=== PATIENT | female | born 1950 | race Caucasian/White ===

== ENCOUNTER 2023-06-30 22:34 | Inpatient (IN) ==
--- OUTSIDE RECORDS SUMMARY | 2023-06-30 22:45 | External Medical Summary | Summary of Care ---
Author Name Unknown Organization [facility] Address [address] [facility] [place] [address] Phone [phone] Care Team Providers Care Drilling Supervisor Name Role Phone Nichole Lizarraga MD Primary Care Provider + Reason for Visit * Reason Onset Date Comments FYI 06/27/2023 LGI Encounter Details Date Type Department Care Team (Late st Contact Info) Description 06/27/2023 Telephone General Internal Medicine [facility] [address] [place] [address] Nichole Lizarraga MD [address] [place] [address] FYI (LGI) Allergies Active Allergy Reactions Criticality Noted Date Comments Penicillins Edema airway,Rash High 03/10/2012 Last dose age 14 Tolerated Ancef Pollen 01/17/2021 Ragweed 11/05/2022 documented as of this encounter (statuses as of 06/27/2023) Medications Medication Sig Dispensed Refills Start Date End Date Status PROBIOTIC DAILY PO CAPS Take 1 Capsule by mouth in the morning. 0 Active Calcium Carbonate-Vitamin D 600-400 MG-UNIT Oral Tablet Chewable Take 1 Tablet by mouth in the morning. 0 10/11/2015 Active loratadine (CLARITIN) 10 MG Tablet Take 1 Tablet by mouth every evening. 30 Tab 5 10/16/2016 Active fluticasone (FLONASE) 50 MCG/ACT nasal sprayIndications:Image Editor 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 1 Inhaler 5 04/21/2018 Active Additional Information Patient taking differently:2 [place] Each NostrilPRN, Allergies, Informant: Patient, Reported on 05/29/2023 Econazole Nitrate 1 % External Cream (Spectazole)Indicatio ns:Tinea pedis of both feet,Onychomycosis Apply 2x daily from ankles down to feet/nails 2x daily for about 1 month until resolved, then 2x weekly to maintain clearance 170 g 2 11/21/2021 Active Azelastine HCl 137 MCG/SPRAY Nasal SolutionIndications:C hronic sinusitis, unspecified location ADMINISTER 1 SPRAY INTO NOSTRIL 2 TIMES A DAY. 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 30 Tablet 2 03/01/2023 Active Polyethylene Glycol 3350 17 GM/SCOOP Oral Powder (Miralax) Mix 17 grams of powder (1 capful to line) in 8 ounces of water or juice until dissolved and take by mouth daily at bedtime for constipation. 238 g 0 05/13/2023 Active Additional Information Patient taking differently:17 g OralHS PRN, Constipation, Informant: Patient, Reported on 05/29/2023 Sennosides 8.6 MG Oral Tablet (Senokot) Take 2 Tablets by mouth daily in the morning. 28 Tablet 1 05/13/2023 Active Additional Information Patient taking differently:2 Tablet OralDAILY PRN, Constipation, Informant: Patient, Reported on 05/29/2023 Acetaminophen 325 MG Oral Tablet (Tylenol) Take 2 Tablets by mouth every 4 hours as needed for mild pain or for fever greater than 38*C (100.5*F). 30 Tablet 0 05/30/2023 Active Oxymetazoline HCl 0.05 % Nasal SolutionIndications:D ysfunction of both eustachian tubes Administer 2 Sprays into each nostril 2 times a day as needed for Congestion (for congestion). Do not use for more than three days. 15 mL 0 06/14/2023 Active Magic Swizzle (Eorcsjgzf-Rwmxxdvr-C aalox) oral solutionIndications:P haryngoesophageal dysphagia,History of abdominal surgery Swish and swallow 15 mL in the morning and 15 mL at noon and 15 mL before bedtime. 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 01/06/2018 Neutropenia documented as of this encounter (statuses as of 06/27/2023) Resolved Problems Problem Noted Date Diagnosed Date Resolved Date Septic shock 05/26/2023 05/30/2023 Chronic kidney disease, stage 3b 04/30/2022 05/01/2023 Overview: Per CKD protocol Chronic kidney disease, stage 3a 05/29/2021 05/02/2022 Overview: Per CKD protocol Fever 09/13/2015 10/21/2017 Kidney stone on left side Inguinal hernia 10/21/2017 Overview: Surgical repair documented as of this encounter (statuses as of 06/27/2023) Immunizations Name Administration Dates Next Due COVID-19 mRNA, LNP-s, No Pre serve, 2-Dose Series ([employer]) 01/05/2021,05/07/2020,04/16/2020 COVID-19, LNP-s, No Preserve , Jasbir-sucrose, Ages 12+ (Pfizer) 09/06/2021 Covid-19, Mrna, Lnp-s, Pf, B ivalent, 30 Mcg, IM, 12 yrs and above (Pfizer) 01/31/2022 PPD 02/19/2017 Pneumococcal Conjugate Vacc, 13 Valent (Prevnar) 10/18/2017 Pneumococcal Polysaccharide PPV23 (Pneumovax) 10/21/2018 Season Influenza, Quad, PF, Adjuvanted, 65+ Yrs, IM (FLUAD) 10/27/2019 Seasonal Influenza, PF, 6 M & above, IM , (FluLaval or Fluzone) 11/28/2017 Seasonal Influenza, Quadriva lent Hd (Fluzone Hd) 11/06/2022,11/01/2021,10/27/2020 Seasonal Influenza, Quadriva lent, No Preserve, IM 10/29/2016,01/20/2016,11/19/2014 Seasonal Influenza, Split, I IV3, With Preserve, Inj 11/23/2013,12/15/2012,01/29/2012 Seasonal Influenza, Trivalen t, Adjuvanted, 65+ yrs 10/21/2018 TDAP (age 10 and older)(Boostrix) 09/02/2012 documented as of this encounter Social History Tobacco Use Types Packs/Day Years Used Date Smoking Tobacco: Never Passive Smoke Exposure: Never Smokeless Tobacco: Never Alcohol Use Standard Drinks/Week Comments Not Currently 2 (1 standard drink = 0.6 oz pur e alcohol) PHQ-2 Answer Date Recorded PHQ Adult Total Score 0 11/06/2022 Hunger Vital Sign Answer Date Recorded Worried About Running Out of Food in the Last Ye ar Never true 10/21/2018 Ran Out of Food in the Last Year Never true 10/21/2018 Sex and Gender Information Value Date Recorded Sex Assigned at Female 10/21/2018 10:18 AM EDT Gender Identity Female 10/21/2018 10:18 AM EDT Sexual Orientation Straight 10/21/2018 10 :18 AM EDT Job Start Date Occupation Industry Not on file Not on file Not on file documented as of this encounter Functional Status Functional Status Response Date of Assess ment Are you deaf or do you have serious difficulty h earing? No 05/26/2023 Are you blind or do you have serious difficulty seeing, even when wearing glasses? No 05/26/2023 Do you have serious difficul ty walking or climbing stairs? (5 years old or older) No 05/26/2023 Do you have difficulty dress ing or bathing? (5 years old or older) No 05/26/2023 Because of a physical, menta l, or emotional condition, do you have difficulty doing errands alone such as visiting a doctor s office or shopping? (15 years old or older) No 05/26/19 Cognitive Status Response Date of Assessm ent Because of a physical, menta l, or emotional condition, do you have serious difficulty concentrating, remembering, or making decisions? (5 years old or older) No 05/26/2023 documented as of this encounter Miscellaneous Notes * Telephone Encounter - Levy Ching LPN - 06/27/2023 1:23 PM EDT Through advanced analysis/trending of this patients Complete Blood Counts (CBC), they have been identified to have a positive LGI flag and at a higher risk for hidden bleeding in the intestine dueto several conditions such as ulcers, colon polyps, harmless conditions, or even colon cancer. This advanced analysis estimates the patient's risk of these kinds of conditions. It only indicatesthat the patient's chances to have one of these conditions are higher compared to most people. It does not indicate that the patient has any of these conditions but is highly recommended the patient have a colonoscopy for further evaluation. Patients with a positive LGI flag have a 40% chance (six times more likely) of having a serious GI pathology finding versus unflagged patients. I have contacted the patient regarding scheduling a colonoscopy. Colonoscopy outreach: Outreach not indicated per chart review Per pt- she was also identified 05/19/20 and said hematology did not support a colon due to risk- pt also had recent blood transfusion Thank you. Levy Ching LPN documented in this encounter Plan of Treatment Upcoming Encounters Date Type Department Care Team (Late st Contact Info) Description 07/04/2023 10:30 AM EDT Imaging Radiology [facility] 2nd [facility] [address] [facility] [place] [address] 07/25/2023 3:15 PM EDT Office Visit Hematology/Oncology [facility] [address] [facility] [place] [phone] Aguilar Lizarraga MD 200 [facility] [place] [address] 11/12/2023 9:20 AM EDT Office Visit General Internal Medicine [facility] [place] [address] [facility] [place] [address] Nichole Lizarraga MD 200 [facility] [place] [address] 03/06/2024 11:40 AM EST Office Visit Nephrology, [facility] [address] [place] [address] Demetrius Sherman MD [address] [facility] [place] [address] Health Maintenance Due Date Last Done Comments Zoster Vaccines (1 of 2) 01/23/1971 Colonoscopy 01/23/1997 Fecal Occult Blood Test 01/23/1997 Sigmoidoscopy 01/23/1997 DTaP,Tdap,and Td Vaccines (2 - Td or Tdap) 09/02/2022 09/02/2012 Albumin/Creatinine Ratio 03/13/2023 03/13/2022, 10/20 Cologuard 06/09/2023 06/08/2020, 10/25/2016 Colorectal Cancer Screening 06/09/2023 Mammogram 10/12/2023 10/11/2022, 0 04/2021, 01/18/2020, Additional history exists Depression Screening 11/07/2023 11/06/2022 GFR 12/27/2023 06/26/2023, 050 03/2023, 05/30/2023, Additional history exists CKD HGB USE SMARTSET 42465 06/25/202406/25, 06/26/2023, 06/20/2023, Additional history exists CKD PHOS USE SMARTSET 32681 06/25/2024 05/0 09/2023, 05/30/2023, 05/29/2023, Additional history exists DXA Scan 10/02/2024 10/02/2022, 12/20, 11/04/2017 Lipid Panel 10/26/2024 10/27/2019, 09/20, 01/20/2016, Additional history exists Pneumococcal Vaccine: 65+ Years Completed 10/21/2018, 10/18/2017 Influenza Vaccine (FLU shot) Completed , 11/01/2021, 10/27/2020, Additional history exists COVID-19 Vaccine Completed 12/07/2022, , 09/06/2021, Additional history exists GARDASIL-HPV IMMUNIZATION SERIES Aged Out No longer eligible based on patient's age to complete this topic Hepatitis B Aged Out No longer eligi ble based on patient's age to complete this topic MENINGOCOCCAL (MENACTRA/MENVEO) Aged Out No longer eligible based on patient's age to complete this topic documented as of this encounter Medical Devices Not on filedocumented as of this encounter Advance Directives Latest Code Status on File Code Status Date Activated Date Inactivated Comments Full Code 05/26/2023 2:59 AM 05/30/2023 6:30 PM This o rder reflects the patients wishes and were consensually agreed upon. Question Answer Comments Discussion of Advance Directives occurred with: Patient Code Status History Code Status Date Activated Date Inactivated Comments Full Code 05/08/2023 4:08 PM 05/13/2023 4:04 PM This order reflects the patients wishes and were consensually agreed upon. Question Answer Comments Discussion of Advance Directives occurred with: Not Discussed due to patient's condition Full Code 02/04/2023 9:25 AM 02/04/2023 2:55 PM Thi s order reflects the patients wishes and were consensually agreed upon. Question Answer Comments Discussion of Advance Directives occurred with: Patient Full Code 02/04/2023 7:26 AM 02/04/2023 9:25 AM Thi s order reflects the patients wishes and were consensually agreed upon. Question Answer Comments Discussion of Advance Directives occurred with: Patient Full Code 06/05/2021 8:47 AM 06/05/2021 1:44 PM This order reflects the patients wishes and were consensually agreed upon. Care Teams Drilling Supervisor Relationship Specialty Start Date End Date Nichole Lizarraga MD [facility] [place] [address] PCP - General Internal Medicine 03/10/12 documented as of this encounter
--- OUTSIDE RECORDS SUMMARY | 2023-06-30 22:45 | External Medical Summary | Summary of Care ---
Author Name Unknown Organization [facility] Address [address] [facility] [place] [address] Phone [phone] Care Team Providers Care Bleacher Sulfite Pulp Name Role Phone Nichole Lizarraga MD Primary Care Provider + Reason for Visit * Reason Onset Date Comments Precert Denied 06/26/2023 Encounter Details Date Type Department Care Team (Late st Contact Info) Description 06/26/2023 Telephone Hematology/Oncology [facility] [address] [facility] [place] [phone] Aguilar Lizarraga MD 200 [place] [address] Precert Denied Allergies Active Allergy Reactions Criticality Noted Date Comments Penicillins Edema airway,Rash High 03/10/2012 Last dose age 14 Tolerated Ancef Pollen 01/17/2021 Ragweed 11/05/2022 documented as of this encounter (statuses as of 06/28/2023) Medications Medication Sig Dispensed Refills Start Date [...] 10/16/2016 Active fluticasone (FLONASE) 50 MCG/ACT nasal sprayIndications:Artificial Fly Tier 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 1 Inhaler 5 04/21/2018 Active Additional Information Patient taking differently:2 [place] Each NostrilPRN, Allergies, Informant: Patient, Reported on [...] 15 mL 0 06/14/2023 Active Magic Swizzle (Magkarqmh-Liqxvtjx-L aalox) oral solutionIndications:P haryngoesophageal dysphagia,History of abdominal [...] as of this encounter (statuses as of 06/28/2023) Active Problems Problem Noted Date Diagnosed Date [...] as of this encounter (statuses as of 06/28/2023) Resolved Problems Problem Noted Date Diagnosed Date Resolved Date Septic shock 05/26/2023 05/30/2023 Chronic kidney disease, stage 3b 04/30/2022 05/01/2023 Overview: Per CKD protocol Chronic kidney disease, stage 3a 05/29/2021 05/02/2022 Overview: Per CKD protocol Fever 09/13/2015 10/21/2017 Kidney stone on left side Inguinal hernia 10/21/2017 Overview: Surgical repair documented as of this encounter (statuses as of 06/28/2023) Immunizations Name Administration Dates Next Due COVID-19 mRNA, LNP-s, No Pre serve, 2-Dose Series ([employer]) 01/05/2021,05/07/2020,04/16/2020 COVID-19, LNP-s, No Preserve , Jasbir-sucrose, [...] encounter Miscellaneous Notes * Telephone Encounter - [place]ia Valdez OSA - 06/28/2023 4:24 PM EDT New or re-auth: re-authorization Approved/Denied: Denied Drug Name and Formulation: Filgrastim-sndz 480 MCG/0.8ML Injection Solution Prefilled Syringe (Zarxio) How Prescribed(directions/sig): Inject 480 mcg under the skin in the morning. Day Supply: 28 Did you receive insurance information from outside the chart? No, received insurance information within the chart Valid auth start date: N/A Valid auth end date: N/A Rx Insurance Info: [place] Reference #: [id number] Rx Benefits Verified through/on date: 06/28/2023 Referral (TE) received from: Prescribing Clinic Thank you, Albania Valdez Medication Cigar Sorter 06/28/2023, 4:24 PM * Telephone Encounter - Marta Mercado OSA - 06/27/2023 7:48 AM EDT [facility] Authorization Submission Submission Information: Medication: ZARIXO 480 MG Portal used: [facility] Insurance: [facility] Authorization #/Hung: [id number] Marta Mercado Medication Cigar Sorter 06/27/2023,7:50 AM * Telephone Encounter - Josh Escalera RN - 06/26/2023 2:59 PM EDT ICD-10: D70.9, C91.Z0 Start date: CORNELIO Drugs: Filgrastim-sndz 480 MCG/0.8ML Injection Solution Prefilled Syringe (Zarxio) Multidisciplinary Clinic note: no Physician: Dr. Aguilar Lizarraga Comments: Dr. Lizarraga increasing frequency from 4 days/week to 7days/week (daily) Concurrent Therapy: yes documented in this encounter Plan of Treatment Upcoming Encounters Date Type Department Care Team (Late st Contact Info) Description 07/04/2023 10:30 AM EDT Imaging Radiology [facility] [address] [place] [address] 07/25/2023 3:15 PM EDT Office Visit Hematology/Oncology [facility] [place] [address] [place] [address] [phone] Aguilar Lizarraga MD [address] [place] [address] [address] 11/12/2023 9:20 AM EDT [facility] [place] [address] [place] [address] [address] Nichole Lizarraga MD [address] [place] [address] [address] 03/06/2024 11:40 AM EST Office Visit Nephrology, [facility] [address] [place] [address] [address] Demetrius Sherman MD 200 [facility] [place] [address] Health Maintenance Due Date Last Done Comments Zoster Vaccines (1 of 2) 01/23/1971 Colonoscopy 01/23/1997 Fecal Occult Blood Test 01/23/1997 Sigmoidoscopy 01/23/1997 DTaP,Tdap,and Td Vaccines (2 - Td or Tdap) 09/02/2022 09/02/2012 Albumin/Creatinine Ratio 03/13/2023 03/13/2022, 10/20 Cologuard 06/09/2023 06/08/2020, 10/25/2016 Colorectal Cancer Screening 06/09/2023 Mammogram 10/12/2023 10/11/2022, 05/0 04/2021, 01/18/2020, Additional history exists Depression Screening 11/07/2023 11/06/2022 GFR 12/27/2023 06/26/2023, 050 03/2023, 05/30/2023, Additional history exists CKD HGB USE SMARTSET 66067 06/25/202406/25, 06/26/2023, 06/20/2023, Additional history exists CKD PHOS USE SMARTSET 25931 06/25/2024 05/0 09/2023, 05/30/2023, 05/29/2023, Additional history [...] and were consensually agreed upon. Care Teams Bleacher Sulfite Pulp Relationship Specialty Start Date End Date Nichole Lizarraga MD [address] [facility] [place] [address] PCP - General Internal Medicine 03/10/12 documented as of this encounter
--- OUTSIDE RECORDS SUMMARY | 2023-06-30 22:45 | External Medical Summary | Summary of Care ---
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 1 Inhaler 5 04/21/2018 Active Additional Information Patient taking differently:2 [place] Each NostrilPRN, Allergies, Informant: Patient, Reported on [...] 15 mL 0 06/14/2023 Active Magic Swizzle (Psxrzzpcl-Mlafsxjh-G aalox) oral solutionIndications:P haryngoesophageal dysphagia,History of abdominal [...] mRNA, LNP-s, No Pre serve, 2-Dose Series ([employer]) 01/05/2021,05/07/2020,04/16/2020 COVID-19, LNP-s, No Preserve , Jasbir-sucrose, Ages 12+ ([employer]) 09/06/2021 Covid-19, Mrna, Lnp-s, Pf, B ivalent, [...] No 05/26/2023 documented as of this encounter Plan of Treatment Upcoming Encounters Date Type Department Care Team (Late st Contact Info) Description 07/04/2023 10:30 AM EDT Imaging Radiology [facility] 2nd [facility], [address] [place] [address] 07/25/2023 3:15 PM EDT Office Visit Hematology/Oncology [facility] [place] [address] [phone] Aguilar Lizarraga MD [address] [place] [address] 11/12/2023 9:20 AM EDT Office Visit General Internal Medicine [facility] [address] [place] [address] Nichole Lizarraga MD [address] [facility] [place] [address] 03/06/2024 11:40 AM EST Office Visit Nephrology, [facility] [address] [place] [address] Demetrius Sherman MD [address] [place] [address] Health Maintenance Due Date Last Done Comments [...] Additional history exists CKD HGB USE SMARTSET 81695 06/25/202406/25, 06/26/2023, 06/20/2023, Additional history exists CKD PHOS USE SMARTSET 42823 06/25/2024 05/0 09/2023, 05/30/2023, 05/29/2023, Additional history [...] and were consensually agreed upon. Care Teams Tire Service Supervisor Relationship Specialty Start Date End Date Nichole Lizarraga MD [address] [place] [address] PCP - General Internal Medicine 03/10/12 documented as of this encounter
--- OUTSIDE RECORDS SUMMARY | 2023-06-30 22:45 | External Medical Summary | Summary of Care ---
Author Name Unknown Organization [facility] Address [address] [facility] [place] [address] Phone [phone] Care Team Providers Care Sheet Metal Duct Installer Helper Name Role Phone Nichole Lizarraga MD Primary Care Provider + Encounter Details Date Type Department Care Team (Late st Contact Info) Description 06/28/2023 Orders Only PATIENT PORTAL DO NOT DELETE THIS DEPT USED BY [place] [address] Allergies Active Allergy Reactions Criticality Noted Date [...] 10/16/2016 Active fluticasone (FLONASE) 50 MCG/ACT nasal sprayIndications:Hr Business Partner 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 1 Inhaler 5 04/21/2018 Active Additional Information Patient taking differently:2 [place] Each NostrilPRN, Allergies, Informant: Patient, Reported on [...] 15 mL 0 06/14/2023 Active Magic Swizzle (Rpjvpzssd-Xlhlgukj-P aalox) oral solutionIndications:P haryngoesophageal dysphagia,History of abdominal [...] mRNA, LNP-s, No Pre serve, 2-Dose Series ([employer] 01/05/2021,05/07/2020,04/16/2020 COVID-19, LNP-s, No Preserve , Jasbir-sucrose, [...] Description 07/04/2023 10:30 AM EDT Imaging Radiology [address] [place] [address] 07/25/2023 3:15 PM EDT Office Visit Hematology/Oncology [facility] [address] [place] [phone] Aguilar Lizarraga MD [address] [place] [address] 11/12/2023 9:20 AM EDT Office Visit General Internal Medicine [facility] [address] [place] [address] Nichole Lizarraga MD [address] [facility] [place] [address] 03/06/2024 11:40 AM EST Office Visit Nephrology, [facility] [address] [place] [address] Demetrius Sherman MD [address] [place] [address] [address] Health Maintenance Due Date Last Done Comments Zoster Vaccines (1 of 2) 01/23/1971 Colonoscopy 01/23/1997 Fecal Occult Blood Test 01/23/1997 Sigmoidoscopy 01/23/1997 DTaP,Tdap,and Td Vaccines (2 - Td or Tdap) 09/02/2022 09/02/2012 Albumin/Creatinine Ratio 03/13/2023 03/13/2022, 10/20 Cologuard 06/09/2023 06/08/2020, 10/25/2016 Colorectal Cancer Screening 06/09/2023 Mammogram 10/12/2023 10/11/2022, 050 04/2021, 01/18/2020, Additional history exists Depression Screening 11/07/2023 11/06/2022 GFR 12/27/2023 06/26/2023, 050 03/2023, 05/30/2023, Additional history exists CKD HGB USE SMARTSET 66841 06/25/202406/25, 06/26/2023, 06/20/2023, Additional history exists CKD PHOS USE SMARTSET 59070 06/25/20240 09/2023, 05/30/2023, 05/29/2023, Additional history exists DXA [...] and were consensually agreed upon. Care Teams Sheet Metal Duct Installer Helper Relationship Specialty Start Date End Date Nichole Lizarrgaa MD 200 [facility] [place] [address] PCP - General Internal Medicine 03/10/12 documented as of this encounter
--- OUTSIDE RECORDS SUMMARY | 2023-06-30 22:45 | External Medical Summary | Summary of Care ---
Author Name Unknown Organization [facility] Address [address] [facility] [place] [address] Phone [phone] Care Team Providers Care Echo Technologist Name Role Phone Nichole Lizarraga MD Primary Care Provider + Reason for Visit * Reason Onset Date Comments Test Results 06/28/2023 Encounter Details Date Type Department Care Team (Late st Contact Info) Description 06/28/2023 Telephone Nephrology, [place] [address] [facility] [place] [address] Demetrius Sherman MD [address] [facility] [place] [address] Test Results Allergies Active Allergy Reactions Criticality Noted Date [...] 10/16/2016 Active fluticasone (FLONASE) 50 MCG/ACT nasal sprayIndications: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 1 Inhaler 5 04/21/2018 Active Additional Information Patient taking differently:2 [place] Each NostrilPRN, Allergies, Informant: Patient, Reported on [...] 15 mL 0 06/14/2023 Active Magic Swizzle (Ytsuzzapj-Uycdoyub-U aalox) oral solutionIndications:P haryngoesophageal dysphagia,History of abdominal [...] the morning. 22.4 mL 3 06/26/2023 Active Midodrine HCl 5 MG Oral Tablet (Proamatine)Indicatio ns:Chronic kidney disease, stage 3a (HCC) Take 1 Tablet by mouth in the morning and 1 Tablet at noon and 1 Tablet in the evening. 90 Tablet 5 06/28/2023 Active documented as of this encounter (statuses [...] mRNA, LNP-s, No Pre serve, 2-Dose Series ([employer]) 01/05/2021,05/07/2020,04/16/2020 COVID-19, LNP-s, No Preserve , Jasbir-sucrose, [...] encounter Miscellaneous Notes * Telephone Encounter - Awilda Lombardo LPN - 06/28/2023 4:29 PM EDT Orders placed for labs Rx pended for Rx * Telephone Encounter - Awilda Lombardo LPN - 06/28/2023 4:17 PM EDT Received message pt returning call from earlier Returned call only received answering machine LMM to return call Saturday to discuss lab results * Telephone Encounter - Awilda Lombardo LPN - 06/28/2023 10:16 AM EDT ----- Message from Demetrius Sherman MD sent at 06/27/2023 10:57 AM EDT ----- With all the things that has happened in the last few months GFR is less. Part of it also related with her much lower BP lately. Will try midodrine 5 mg tid to see if it raises BP a bit. Have renal panel again with her next labs with hematology * Telephone Encounter - Awilda Lombardo LPN - 06/28/2023 10:15 AM EDT LMM to return call regarding * Telephone Encounter - Awilda Lombardo LPN - 06/28/2023 10:15 AM EDT ----- Message from Demetrius Sherman MD sent at 06/28/2023 9:11 AM EDT ----- Significant proteinuria but expected given current situation documented in this encounter Plan of Treatment Upcoming Encounters Date Type Department Care Team (Late st Contact Info) Description 07/04/2023 10:30 AM EDT Imaging Radiology [facility] [address] [place] [address] 07/25/2023 3:15 PM EDT Office Visit Hematology/Oncology [facility] [address] [place], [place] [phone] Aguilar Lizarraga MD [address] [place] [address] 11/12/2023 9:20 AM EDT Office Visit General Internal Medicine [facility] [address] [place] [address] Nichole Lizarraga MD [address] [place] [address] 03/06/2024 11:40 AM EST Office Visit Nephrology, [place] [address] [place] [address] Demetrius Sherman MD [address] [place] [address] Scheduled Orders Name Type Priority Associated Diagnoses Orde r Schedule RENAL FUNCTION PANEL Lab Routine Chronic kidney disease, stage 3a (HCC) Expected: 06/28/2023 (Approximate), Expires: 06/27/2024 Health Maintenance Due Date Last Done Comments [...] Additional history exists CKD HGB USE SMARTSET 69486 06/25/202406/25, 06/26/2023, 06/20/2023, Additional history exists CKD PHOS USE SMARTSET 67604 06/25/2024 05/0 09/2023, 05/30/2023, 05/29/2023, Additional history [...] Not on filedocumented as of this encounter Visit Diagnoses Diagnosis Chronic kidney disease, stage 3a (HCC)- Primary documented in this encounter Advance Directives Latest Code Status [...] and were consensually agreed upon. Care Teams Echo Technologist Relationship Specialty Start Date End Date Nichole Lizarraga MD [address] [facility] [place] [address] PCP - General Internal Medicine 03/10/12 documented as of this encounter
--- OUTSIDE RECORDS SUMMARY | 2023-06-30 22:45 | External Medical Summary | Summary of Care ---
Author Name Unknown Organization [facility] Address [address] [place] [facility] [place] [place] [address] Phone [phone] Care Team Providers Care Landscape Crew Member Name Role Phone Nichole Lizarraga MD Primary Care Provider + Reason for Visit * Reason Comments Outpatient Testing [id number] Encounter Details Date Type Department Care Team (Late st Contact Info) Description 06/27/2023 3:30 PM EDT Laboratory Laboratory [facility] [place] [address] [place] [id number] [place], [facility] [address] [place] [address] Stage 3b chronic kidney disease (HCC) Allergies Active Allergy Reactions Criticality Noted Date [...] 10/16/2016 Active fluticasone (FLONASE) 50 MCG/ACT nasal 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 1 Inhaler 5 04/21/2018 Active Additional Information Patient taking differently:2 [place] Each NostrilPRN, Allergies, Informant: Patient, Reported on [...] 15 mL 0 06/14/2023 Active Magic Swizzle (Xvfynkjpv-Amxkitmq-L aalox) oral solutionIndications:P haryngoesophageal dysphagia,History of abdominal [...] mRNA, LNP-s, No Pre serve, 2-Dose Series ([employer]) 01/05/2021,05/07/2020,04/16/2020 COVID-19, LNP-s, No Preserve , Jasbir-sucrose, [...] Description 07/04/2023 10:30 AM EDT Imaging Radiology [facility] 2nd [facility] [address] [facility] [place] [address] 07/25/2023 3:15 PM EDT Office Visit Hematology/Oncology [facility] [address] [phone] Aguilar Lizarraga MD [address] [place] [address] [address] 11/12/2023 9:20 AM EDT Office Visit General Internal Medicine [facility] [address] [place] [address] [address] Nichole Lizarraga MD [address] [place] [address] [address] 03/06/2024 11:40 AM EST Office Visit Nephrology, [facility] [address] [place] [address] [address] Demetrius Sherman MD [address] [place] [address] [address] Pending Results Name Type Priority Associated Diagnoses Date /Time PROTEIN/ CREATININE RATIO, URINE Lab Routine Stage 3b chronic kidney disease (HCC) 06/27/2023 3:26 PM EDT URINALYSIS WITH MICROSCOPIC EXAM Lab Routine Stage 3b chronic kidney disease (HCC) 06/27/2023 3:26 PM EDT Health Maintenance Due Date Last Done Comments Zoster Vaccines (1 of 2) 01/23/1971 Colonoscopy 01/23/1997 Fecal Occult Blood Test 01/23/1997 Sigmoidoscopy 01/23/1997 DTaP,Tdap,and Td Vaccines (2 - Td or Tdap) 09/02/2022 09/02/2012 Albumin/Creatinine Ratio 03/13/2023 03/13/2022, 10/20 Cologuard 06/09/2023 06/08/2020, 10/25/2016 Colorectal Cancer Screening 06/09/2023 Mammogram 10/12/2023 10/11/2022, 05/0 04/2021, 01/18/2020, Additional history exists Depression Screening 11/07/2023 11/06/2022 GFR 12/27/2023 06/26/2023, 05/0 03/2023, 05/30/2023, Additional history exists CKD HGB USE SMARTSET 26886 06/25/202406/25, 06/26/2023, 06/20/2023, Additional history exists CKD PHOS USE SMARTSET 54676 06/25/2024 050 09/2023, 05/30/2023, 05/29/2023, Additional history exists DXA [...] as of this encounter Visit Diagnoses Diagnosis Stage 3b chronic kidney disease (HCC) documented in this encounter Advance Directives Latest [...] and were consensually agreed upon. Care Teams Landscape Crew Member Relationship Specialty Start Date End Date Nichole Lizarraga MD 200 [place] [address] PCP - General Internal Medicine 03/10/12 documented as of this encounter
--- OUTSIDE RECORDS SUMMARY | 2023-06-30 22:45 | External Medical Summary | Summary of Care ---
Author Name Unknown Organization [facility] Address [address] [facility] [place] [address] Phone [phone] Care Team Providers Care Solution Specialist Name Role Phone Nichole Lizarraga MD Primary Care Provider + Reason for Visit * Reason Onset Date Comments Test Results 06/27/2023 Encounter Details Date Type Department Care Team (Late st Contact Info) Description 06/27/2023 Telephone Nephrology, [place] [address] [facility] [place] [address] Demetrius Sherman MD 200 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 1 Inhaler 5 04/21/2018 Active Additional Information Patient taking differently:2 [place] Each NostrilPRN, Allergies, Informant: Patient, Reported on [...] 15 mL 0 06/14/2023 Active Magic Swizzle (Sqpruoggc-Yswoddsj-E aalox) oral solutionIndications:P haryngoesophageal dysphagia,History of abdominal [...] mRNA, LNP-s, No Pre serve, 2-Dose Series ([employer]) 01/05/2021,05/07/2020,04/16/2020 COVID-19, LNP-s, No Preserve , Jasbir-sucrose, [...] encounter Miscellaneous Notes * Telephone Encounter - Deysi Calderon RN - 06/27/2023 4:23 PM EDT LMAM with call back number regarding lab results. * Telephone Encounter - Deysi Calderon RN - 06/27/2023 4:23 PM EDT ----- Message from Demetrius Sherman MD [...] again with her next labs with hematology documented in this encounter Plan of Treatment Upcoming Encounters Date Type Department Care Team (Late st Contact Info) Description 07/04/2023 10:30 AM EDT Imaging Radiology [facility] [address] [place] [address] 07/25/2023 3:15 PM EDT Office Visit Hematology/Oncology [facility] [address] [place] [phone] Aguilar Lizarraga MD [address] [place] [address] 11/12/2023 9:20 AM EDT Office Visit General Internal Medicine [facility] [place] [address] [facility] [address] [place] [address] Nichole Lizarraga MD [address] [facility] [address] 03/06/2024 11:40 AM EST Office Visit Nephrology, [facility] [address] [facility] [place] [address] Demetrius Sherman MD [address] [facility] [place], [place] [address] Health Maintenance Due Date Last Done Comments [...] Additional history exists CKD HGB USE SMARTSET 33325 06/25/202406/25, 06/26/2023, 06/20/2023, Additional history exists CKD PHOS USE SMARTSET 91674 06/25/2024 050 09/2023, 05/30/2023, 05/29/2023, Additional history [...] and were consensually agreed upon. Care Teams Solution Specialist Relationship Specialty Start Date End Date Nichole Lizarraga MD [address] [place] [address] PCP - General Internal Medicine 03/10/12 documented as of this encounter
--- OUTSIDE RECORDS SUMMARY | 2023-06-30 22:45 | External Medical Summary | Summary of Care ---
Author Name Unknown Organization [facility] Address [address] [facility] [place] [address] Phone [phone] Care Team Providers Care Shot Polisher And Inspector Name Role Phone Nichole Lizarraga MD Primary Care Provider + Reason for Visit * Reason Onset Date Comments Test Results 06/28/2023 Encounter Details Date Type Department Care Team (Late st Contact Info) Description 06/28/2023 Telephone Nephrology, [place] 200 [facility] [place] [address] Demetrius Sherman MD 200 [facility] [place] [address] Test Results Allergies Active Allergy Reactions Criticality [...] 10/16/2016 Active fluticasone (FLONASE) 50 MCG/ACT nasal sprayIndications: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 1 Inhaler 5 04/21/2018 Active Additional Information Patient taking differently:2 [place] Each NostrilPRN, Allergies, Informant: Patient, Reported on [...] 15 mL 0 06/14/2023 Active Magic Swizzle (Cmotzciit-Cvkkafim-V aalox) oral solutionIndications:P haryngoesophageal dysphagia,History of abdominal [...] mRNA, LNP-s, No Pre serve, 2-Dose Series ([employer]) 01/05/2021,05/07/2020,04/16/2020 COVID-19, LNP-s, No Preserve , Jasbir-sucrose, [...] Description 07/04/2023 10:30 AM EDT Imaging Radiology [facility] [address] [place] [address] 07/25/2023 3:15 PM EDT Office Visit Hematology/Oncology [facility] [address] [place], [place] [phone] Aguilar Lizarraga MD [address] [place] [address] 11/12/2023 9:20 AM EDT Office Visit General Internal Medicine [facility] [address] [place] [address] Nichole Lizarraga MD [address] [place] [address] 03/06/2024 11:40 AM EST Office Visit Nephrology, [place] [address] [place] [address] Demetrius Sherman MD [address] [place] [address] Scheduled Orders Name Type Priority Associated Diagnoses [...] Additional history exists CKD HGB USE SMARTSET 70250 06/25/202406/25, 06/26/2023, 06/20/2023, Additional history exists CKD PHOS USE SMARTSET 98235 06/25/2024 05/0 09/2023, 05/30/2023, 05/29/2023, Additional history [...] and were consensually agreed upon. Care Teams Shot Polisher And Inspector Relationship Specialty Start Date End Date Nichole Lizarraga MD 200 [facility] [place] [address] PCP - General Internal Medicine 03/10/12 documented as of this encounter
--- OUTSIDE RECORDS SUMMARY | 2023-06-30 22:45 | External Medical Summary | Summary of Care ---
Author Name Unknown Organization [facility] Address [address] [facility] [place] [address] Phone [phone] Care Team Providers Care Icd 9 Coder Name Role Phone Nichole Lizarraga MD Primary Care Provider + Reason for Visit * Reason Onset Date Comments Test Results 06/27/2023 Encounter Details Date Type Department Care Team (Late st Contact Info) Description 06/27/2023 Telephone Nephrology, [place] [address] [facility] [place] [address] Demetrius Sherman MD [address] [facility] [place] [address] Test Results Allergies Active Allergy Reactions Criticality [...] 10/16/2016 Active fluticasone (FLONASE) 50 MCG/ACT nasal 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 1 Inhaler 5 04/21/2018 Active Additional Information Patient taking differently:2 [place] Each NostrilPRN, Allergies, Informant: Patient, Reported on [...] 15 mL 0 06/14/2023 Active Magic Swizzle (Tlzvlsjzj-Ffmquhyi-K aalox) oral solutionIndications:P haryngoesophageal dysphagia,History of abdominal [...] mRNA, LNP-s, No Pre serve, 2-Dose Series (Max Endoscopy) 01/05/2021,05/07/2020,04/16/2020 COVID-19, LNP-s, No Preserve , Jasbir-sucrose, [...] encounter Miscellaneous Notes * Telephone Encounter - Ofe Heller OSA - 06/28/2023 3:56 PM EDT Messi dubois, Pt on the line, requesting a call back. Please give her a call back at [phone]. Thank you * Telephone Encounter - Deysi Calderon RN [...] Description 07/04/2023 10:30 AM EDT Imaging Radiology [facility] 2nd [facility] [place] [address] [facility] [place] [address] 07/25/2023 3:15 PM EDT Office Visit Hematology/Oncology [facility] [place] [address] [facility] [place] [phone] Aguilar Lizarraga MD 200 [facility] [place] [address] 11/12/2023 9:20 AM EDT Office Visit General Internal Medicine [facility] [place] [facility] [place] [address] Nichole Lizarraga MD 200 [facility] [place] [address] 03/06/2024 11:40 AM EST Office Visit Nephrology, [facility] [address] [place] [address] Demetrius Sherman MD 200 [facility] [place], [place] [address] Health Maintenance Due Date Last Done Comments Zoster Vaccines (1 of 2) 01/23/1971 Colonoscopy 01/23/1997 Fecal Occult Blood Test 01/23/1997 Sigmoidoscopy 01/23/1997 DTaP,Tdap,and Td Vaccines (2 - Td or Tdap) 09/02/2022 09/02/2012 Albumin/Creatinine Ratio 03/13/2023 03/13/2022, 10/20 Cologuard 06/09/2023 06/08/2020, 10/25/2016 Colorectal Cancer Screening 06/09/2023 Mammogram 10/12/2023 10/11/2022, 05/0 04/2021, 01/18/2020, Additional history exists Depression Screening 11/07/2023 11/06/2022 GFR 12/27/2023 06/26/2023, 0503/2023, 05/30/2023, Additional history exists CKD HGB USE SMARTSET 23777 06/25/202406/25, 06/26/2023, 06/20/2023, Additional history exists CKD PHOS USE SMARTSET 33690 06/25/2024 05/0 09/2023, 05/30/2023, 05/29/2023, Additional history [...] and were consensually agreed upon. Care Teams Icd 9 Coder Relationship Specialty Start Date End Date Nichole Lizarraga MD 200 [facility] [place] [address] PCP - General Internal Medicine 03/10/12 documented as of this encounter
--- OUTSIDE RECORDS SUMMARY | 2023-06-30 22:45 | External Medical Summary | Summary of Care ---
Author Name Unknown Organization [facility] Address [address] [facility] [place] [address] Phone [phone] Care Team Providers Care Business System Consultant Name Role Phone Nichole Lizarraga MD Primary Care Provider + Reason for Visit * Reason Onset Date Comments Test Results 06/27/2023 Encounter Details Date Type Department Care Team (Late st Contact Info) Description 06/27/2023 Telephone Nephrology, [place] 200 [facility] [place] [address] Demetrius Sherman MD 200 [facility] [place] [address] Test Results Allergies Active Allergy Reactions Criticality [...] 10/16/2016 Active fluticasone (FLONASE) 50 MCG/ACT nasal 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 1 Inhaler 5 04/21/2018 Active Additional Information Patient taking differently:2 [place] Each NostrilPRN, Allergies, Informant: Patient, Reported on [...] 15 mL 0 06/14/2023 Active Magic Swizzle (Rovdxmggl-Cbfidfsy-D aalox) oral solutionIndications:P haryngoesophageal dysphagia,History of abdominal [...] mRNA, LNP-s, No Pre serve, 2-Dose Series ([employer]) 01/05/2021,05/07/2020,04/16/2020 COVID-19, LNP-s, No Preserve , Jasbir-sucrose, [...] Encounter - Awilda Lombardo LPN - 06/28/2023 4:21 PM EDT Will close encounter and work from encounter with both messages * Telephone Encounter - Ofe Heller OSA - 06/28/2023 3:56 PM EDT Good afternoon, Pt on the line, requesting a call back. Please give her a call back at [phone]. Thank you * Telephone Encounter - Deysi [...] Description 07/04/2023 10:30 AM EDT Imaging Radiology [facility] 2nd [facility] [address] [facility] [place] [address] 07/25/2023 3:15 PM EDT Office Visit Hematology/Oncology [facility] [address] [place] [phone] Aguilar Lizarraga MD 200 [facility] [place] [address] 11/12/2023 9:20 AM EDT Office Visit General Internal Medicine [facility] [place] [address] [place] [address] Nichole Lizarraga MD 200 [facility] [place] [address] 03/06/2024 11:40 AM EST Office Visit Nephrology, [facility] [address] [place] [address] Demetrius Sherman MD 200 [facility] [place] [address] Health Maintenance Due Date Last Done Comments [...] Additional history exists CKD HGB USE SMARTSET 67479 06/25/202406/25, 06/26/2023, 06/20/2023, Additional history exists CKD PHOS USE SMARTSET 49510 06/25/2024 050 09/2023, 05/30/2023, 05/29/2023, Additional history [...] and were consensually agreed upon. Care Teams Business System Consultant Relationship Specialty Start Date End Date Nichole Lizarraga MD 200 [facility] [address] PCP - General Internal Medicine 03/10/12 documented as of this encounter
--- OUTSIDE RECORDS SUMMARY | 2023-06-30 22:46 | External Medical Summary ---
Author Name Unknown Address Unknown Organization K09[facility] [place] [address] Laboratory Report Ordering Provider Test Date Status KEN RAY 06/26/2023 13:45:29 Final Observation Date Value Abnormality Reference (Units ) Status WBC, Total 06/26/2023 13:45:29 0.97 Below lower panic limits 4.00-10.80 (K/uL) Final RBC 06/26/2023 13:45:29 2.67 3.85-5.15 (M/uL) Final Hemoglobin 06/26/2023 13:45:29 6.9 Below low normal 12.0-15.3 (g/dL) Final HCT 06/26/2023 13:45:29 22.2 Below low normal 36.0-45.2 (%) Final MCV 06/26/2023 13:45:29 83.1 81.5-97.5 (fL) Final MCH 06/26/2023 13:45:29 25.8 27.0-34.0 (pg) Final MCHC 06/26/2023 13:45:29 31.1 32.0-36.0 (g/dL) Final RDW 06/26/2023 13:45:29 19.3 11.5-15.5 (%) Final Platelets 06/26/2023 13:45:29 373 140-400 (K/uL) Final MPV 06/26/2023 13:45:29 9.6 6.6-11.1 (fL) Final Performing Location [facility] [place] [address]
--- OUTSIDE RECORDS SUMMARY | 2023-06-30 22:46 | External Medical Summary ---
Author Name Unknown Address Unknown Organization K09:[facility] [id number] [place] [address] Laboratory Report Ordering Provider Test Date Status KEN RAY 06/26/2023 13:45:29 Final Observation Date Value Abnormality Reference (Units ) Status BUN 06/26/2023 13:45:29 33 Above high normal 6-20 (mg/dL) Final Creatinine 06/26/2023 13:45:29 1.9 Above high normal 0.5-1.0 (mg/dL) Final Glomerular filtration rate/1.73 sq M.predicted [Volume Rate/Area] in Serum, Plasma or Blood by Creatinine-based formula (CKD-EPI) 06/26/2023 13:45:29 28 Below low normal >=60 (mL/min) Final eGFR is calculated based on the CKD-EPI 2020 equation Sodium 06/26/2023 13:45:29 137 135-146 (m mol/L) Final Potassium 06/26/2023 13:45:29 3.4 Below low normal 3.5 -5.1 (mmol/L) Final Cl 06/26/2023 13:45:29 106 98-107 (mm ol/L) Final CO2 06/26/2023 13:45:29 17 Below low normal 22- 32 (mmol/L) Final Anion gap 06/26/2023 13:45:29 14 7-15 (mmol /L) Final Glucose 06/26/2023 13:45:29 168 Above high normal 70 -120 (mg/dL) Final Albumin 06/26/2023 13:45:29 2.3 Below low normal 3.8 -5.0 (g/dL) Final AST (Aspartate aminotransferase) 06/26/2023 13:45:29 7 Below low normal 10-35 (U/L) Final Alk Phos 06/26/2023 13:45:29 84 35-130 (U/ L) Final Bilirubin, Total 06/26/2023 13:45:29 0.4 <=1 .2 (mg/dL) Final Calcium 06/26/2023 13:45:29 8.6 8.4-10.2 ( mg/dL) Final Protein 06/26/2023 13:45:29 6.7 6.0-8.3 (g /dL) Final ALT (Alanine aminotransferase) 06/26/2023 13:45:29 8 Below low normal 10-35 (U/L) Final Performing Location [facility] [address] [place] [address]
--- OUTSIDE RECORDS SUMMARY | 2023-06-30 22:46 | External Medical Summary | Summary of Care ---
Author Name Unknown Organization [facility] Address [address] [facility] [place] [address] Phone [phone] Care Team Providers Care Personal Property Assessor Name Role Phone Nichole Lizarraga MD Primary Care Provider + Reason for Visit * Reason Onset Date Comments Test Results Lab 06/26/2023 Encounter Details Date Type Department Care Team (Late st Contact Info) Description 06/26/2023 Refill Hematology/Oncology [facility] 200 [facility] [place] [phone] Aguilar Lizarraga MD 200 [place] [address] Anemia in stage 4 chronic kidney disease (HCC)*; Chronic neutropenia (HCC); Large granular lymphocytic leukemia (HCC); 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 1 Inhaler 5 04/21/2018 Active Additional Information Patient taking differently:2 [place] Each NostrilPRN, Allergies, Informant: Patient, Reported on [...] for Nausea. 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 12.8 mL 5 03/01/2023 Active Polyethylene Glycol 3350 17 GM/SCOOP [...] 15 mL 0 06/14/2023 Active Magic Swizzle (Mvrgpqqwt-Rvumzxom-H aalox) oral solutionIndications:P haryngoesophageal dysphagia,History of abdominal surgery Swish and swallow 15 mL in the morning and 15 mL at noon and 15 mL before bedtime. 315 mL 0 06/14/2023 Active documented as of this encounter (statuses as of 06/26/2023) Active Problems Problem Noted Date Diagnosed Date [...] as of this encounter (statuses as of 06/26/2023) Resolved Problems Problem Noted Date Diagnosed Date Resolved Date Septic shock 05/26/2023 05/30/2023 Chronic kidney disease, stage 3b 04/30/2022 05/01/2023 Overview: Per CKD protocol Chronic kidney disease, stage 3a 05/29/2021 05/02/2022 Overview: Per CKD protocol Fever 09/13/2015 10/21/2017 Kidney stone on left side Inguinal hernia 10/21/2017 Overview: Surgical repair documented as of this encounter (statuses as of 06/26/2023) Immunizations Name Administration Dates Next Due COVID-19 mRNA, LNP-s, No Pre serve, 2-Dose Series ([email or web address]) 01/05/2021,05/07/2020,04/16/2020 COVID-19, LNP-s, No Preserve , Jasbir-sucrose, [...] as of this encounter Miscellaneous Notes * Addendum Note - Rosario Carrero RN - 06/26/2023 2:41 PM EDTAddended by: ROSARIO CARRERO on: 06/26/2023 02:41 PM Modules accepted: Orders * Telephone Encounter - Rosario Carrero RN - 06/26/2023 2:25 PM EDT Pt labs reviewed with Dr. Lizarraga. Hgb: 6.9 Hct: 22.2 WBC: 0.97 Dr. Lizarraga would like patient to receive 1U PRBC and would like to increase her Zarxio injections toonce daily while on chemotherapy. Called to discuss both with patient, no answer, LMOM with return #. documented in this encounter Plan of Treatment Upcoming Encounters Date Type Department Care Team (Late st Contact Info) Description 07/04/2023 10:30 AM EDT Imaging Radiology [facility] 2nd [facility] [place] [address] [place] [address] 07/25/2023 3:15 PM EDT Office Visit Hematology/Oncology [facility] 200 [facility] [place] [phone] Aguilar Lizarraga MD 200 [facility] [place] [address] 11/12/2023 9:20 AM EDT Office Visit General Internal Medicine [facility] [address] [facility] [address] Nichole Lizarraga MD 200 [facility] [place] [address] 03/06/2024 11:40 AM EST Office Visit Nephrology, [facility] [address] [place] [address] Demetrius Sherman MD 200 [facility] [place] [address] Scheduled Orders Name Type Priority Associated Diagnoses Orde r Schedule TYPE AND SCREEN Lab Routine Anemia in stage 4 chronic kidney disease (HCC) Expected: 06/26/2023, Expires: 07/24/2024 Health Maintenance Due Date Last Done Comments [...] 050 03/2023, 05/30/2023, Additional history exists CKD PHOS USE SMARTSET 09162 05/29/2024 05/0 09/2023, 05/30/2023, 05/29/2023, Additional history exists CKD HGB USE SMARTSET 45452 06/25/202406/25, 06/26/2023, 06/20/2023, Additional history exists DXA Scan 10/02/2024 10/02/2022, [...] as of this encounter Visit Diagnoses Diagnosis Anemia in stage 4 chronic kidney disease (HCC)- Primary Chronic neutropenia (HCC) Other neutropenia Large granular lymphocytic leukemia (HCC) Other lymphoid leukemia, without mention of having achieved remission 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 Care Teams Personal Property Assessor Relationship Specialty Start Date End Date Nichole Lizarraga MD 200 [facility] [place] [address] PCP - General Internal Medicine 03/10/12 documented as of this encounter
--- OUTSIDE RECORDS SUMMARY | 2023-06-30 22:46 | External Medical Summary | Summary of Care ---
Author Name Unknown Organization [facility] Address [address] [facility] [place] [address] Phone [phone] Care Team Providers Care Foundry Molder Name Role Phone Nichole Lizarraga MD Primary Care Provider + Reason for Visit * Reason Onset Date Comments Precert Future 06/26/2023 Zarxio Encounter Details Date Type Department Care Team (Late st Contact Info) Description 06/26/2023 Telephone Hematology/Oncology [facility] 200 [place] [phone] Aguilar Lizarraga MD 200 [place] [address] Precert Future (Zarxio) Allergies Active Allergy Reactions Criticality Noted Date [...] Active fluticasone (FLONASE) 50 MCG/ACT nasal sprayIndications: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 1 Inhaler 5 04/21/2018 Active Additional Information Patient taking differently:2 [place] Each NostrilPRN, Allergies, Informant: Patient, Reported on [...] 15 mL 0 06/14/2023 Active Magic Swizzle (Cctuentmc-Xzrsgvjb-A aalox) oral solutionIndications:P haryngoesophageal dysphagia,History of abdominal [...] mRNA, LNP-s, No Pre serve, 2-Dose Series ([employer]) 01/05/2021,05/07/2020,04/16/2020 COVID-19, LNP-s, No Preserve , Jasbir-sucrose, [...] encounter Miscellaneous Notes * Telephone Encounter - Josh Escalera RN [...] Description 07/04/2023 10:30 AM EDT Imaging Radiology [facility] 2nd [facility] [address] [facility] [place] [address] 07/25/2023 3:15 PM EDT Office [facility] 200 [place] [address] Aguilar Lizarraga MD 200 [place] [address] 11/12/2023 9:20 AM EDT Office Visit General Internal Medicine [facility] [place] [address] [facility] [address] [place], [place] [address] iNchole Lizarraga MD 200 [place] [place] [address] 03/06/2024 11:40 AM EST Office Visit Nephrology, [facility] [address] [facility] [place] [address] Demetrius Sherman MD 200 [place] [address] Health Maintenance Due Date Last Done Comments [...] Additional history exists CKD PHOS USE SMARTSET 78358 05/29/2024 05/0 09/2023, 05/30/2023, 05/29/2023, Additional history exists CKD HGB USE SMARTSET 73876 06/25/202406/25, 06/26/2023, 06/20/2023, Additional history exists DXA [...] and were consensually agreed upon. Care Teams Foundry Molder Relationship Specialty Start Date End Date Nichole Lizarraga MD [address] [place] [address], [place] [address] PCP - General Internal Medicine 03/10/12 documented as of this encounter
--- OUTSIDE RECORDS SUMMARY | 2023-06-30 22:46 | External Medical Summary | Summary of Care ---
Author Name Unknown Organization [facility] Address [address] [facility] 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 1 Inhaler 5 04/21/2018 Active Additional Information Patient taking differently:2 [place] Each NostrilPRN, Allergies, Informant: Patient, Reported on [...] 15 mL 0 06/14/2023 Active Magic Swizzle (Msthiyiuq-Vryldxkj-C aalox) oral solutionIndications:P haryngoesophageal dysphagia,History of abdominal [...] mRNA, LNP-s, No Pre serve, 2-Dose Series ([employer]) 01/05/2021,05/07/2020,04/16/2020 COVID-19, LNP-s, No Preserve , Jasbir-sucrose, [...] 10:30 AM EDT Imaging Radiology [facility] [address] [place] [address] 07/25/2023 3:15 PM EDT Office Visit Hematology/Oncology [facility] [place] [address] [address] Aguilar Lizarraga MD [address] [place] [address] [address] 11/12/2023 9:20 AM EDT Office Visit General Internal Medicine [facility] [place] [address] [place] [address] [address] Nichole Lizarraga MD [address] [place] [address] [address] 03/06/2024 11:40 AM EST Office Visit Nephrology, [facility] [place] [address] [place] [address] [address] Demetrius Sherman MD [address] [place], [place] [address] Pending Results Name Type Priority Associated Diagnoses Date /Time CBC WITH WBC DIFFERENTIAL Lab STAT 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) 06/26/2023 1:45 PM EDT COMPREHENSIVE METABOLIC PANEL Lab STAT 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) 06/26/2023 1:45 PM EDT MAGNESIUM Lab STAT 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) 06/26/2023 1:45 PM EDT PTH Lab Routine Stage 3b chronic kidney disease (HCC) 06/26/2023 1:45 PM EDT 25-HYDROXY VITAMIN D Lab Routine Stage 3b chronic kidney disease (HCC) 06/26/2023 1:45 PM EDT CBC Lab STAT 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) 06/26/2023 1:45 PM EDT DIFFERENTIAL, AUTOMATED Lab STAT 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) 06/26/2023 1:45 PM EDT PHOSPHORUS Lab Routine Stage 3b chronic kidney disease (HCC) 06/26/2023 1:45 PM EDT Health Maintenance Due Date Last Done Comments Zoster Vaccines (1 of 2) 01/23/1971 Colonoscopy 01/23/1997 Fecal Occult Blood Test 01/23/1997 Sigmoidoscopy 01/23/1997 DTaP,Tdap,and Td Vaccines (2 - Td or Tdap) 09/02/2022 09/02/2012 Albumin/Creatinine Ratio 03/13/2023 03/13/2022, 10/20 Cologuard 06/09/2023 06/08/2020, 10/25/2016 Colorectal Cancer Screening 06/09/2023 Mammogram 10/12/2023 10/11/2022, 05/0 04/2021, 01/18/2020, Additional history exists Depression Screening 11/07/2023 11/06/2022 GFR 12/21/2023 06/20/2023, 05/19, 05/29/2023, Additional history exists CKD PHOS USE SMARTSET 27786 05/29/202405/19, 05/29/2023, 05/28/2023, Additional history exists CKD HGB USE SMARTSET 67676 06/19/202406/19, 06/20/2023, 05/30/2023, Additional history exists DXA Scan 10/02/2024 10/02/2022, [...] of this encounter Visit Diagnoses Diagnosis Chronic neutropenia (HCC) Other neutropenia Large granular lymphocytic leukemia (HCC) Other lymphoid leukemia, without mention of having achieved remission 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 Care Teams Solidworks Designer Relationship Specialty Start Date End Date Nichole Lizarraga MD [address] [place] [address] PCP - General Internal Medicine 03/10/12 documented as of this encounter
--- OUTSIDE RECORDS SUMMARY | 2023-06-30 22:46 | External Medical Summary | Summary of Care ---
Author Name Unknown Organization [facility] Address [address] [facility] [place] [address] Phone [phone] Care Team Providers Care Care Taker Name Role Phone Nichole Lizarraga MD Primary Care Provider + Reason for Visit * Reason Onset Date Comments Precert Future 06/26/2023 Zarxio Encounter Details Date Type Department Care Team (Late st Contact Info) Description 06/26/2023 Telephone Hematology/Oncology [facility] 200 [facility] [place] [phone] Aguilar Lizarraga MD 200 [place] [address] Precert Future (Zarxio) Allergies Active Allergy Reactions [...] 10/16/2016 Active fluticasone (FLONASE) 50 MCG/ACT nasal sprayIndications: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 1 Inhaler 5 04/21/2018 Active Additional Information Patient taking differently:2 [place] Each NostrilPRN, Allergies, Informant: Patient, Reported on [...] 15 mL 0 06/14/2023 Active Magic Swizzle (Elvmywzgv-Bunsojzc-R aalox) oral solutionIndications:P haryngoesophageal dysphagia,History of abdominal [...] mRNA, LNP-s, No Pre serve, 2-Dose Series ([employer]) 01/05/2021,05/07/2020,04/16/2020 COVID-19, LNP-s, No Preserve , Jasbir-sucrose, [...] Description 07/04/2023 10:30 AM EDT Imaging Radiology [facility] 2nd [facility] 132 [facility] [place] [address] 07/25/2023 3:15 PM EDT Office Visit Hematology/Oncology [facility] 200 [facility] [place] [address] Aguilar Lizarraga MD 200 [facility] [place] [address] 11/12/2023 9:20 AM EDT Office Visit General Internal Medicine [facility] [place] [address] [facility] [address] [place], [place] [address] Nichole Lizarraga MD 200 [facility] [place] [address] 03/06/2024 11:40 AM EST Office Visit Nephrology, [facility] 200 [facility] [place] [address] Demetrius Sherman MD 200 [facility] [place] [address] Health Maintenance Due Date Last Done Comments [...] Additional history exists CKD HGB USE SMARTSET 59777 06/25/202406/25, 06/26/2023, 06/20/2023, Additional history exists CKD PHOS USE SMARTSET 45057 06/25/2024 05/0 09/2023, 05/30/2023, 05/29/2023, Additional history [...] and were consensually agreed upon. Care Teams Care Taker Relationship Specialty Start Date End Date Nichole Lizarraga MD [address] [place] [address], [place] [address] PCP - General Internal Medicine 03/10/12 documented as of this encounter
--- OUTSIDE RECORDS SUMMARY | 2023-06-30 22:46 | External Medical Summary | Summary of Care ---
Author Name Unknown Organization [facility] Address [address] [address] Phone [phone] Care Team Providers Care Meat Seafood Associate Name Role Phone Nichole Lizarraga MD Primary Care Provider + Reason for Visit * Reason Onset Date Comments Precert In Process 06/26/2023 9 Marta Dominguez Filgrastim Encounter Details Date Type Department Care Team (Late st Contact Info) Description 06/26/2023 Telephone Hematology/Oncology [facility] 200 [facility] [place] [address] Aguilar Lizarraga MD 200 [facility] [place] [address] Precert In Process (9 Marta Dominguez Filgrast... 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 1 Inhaler 5 04/21/2018 Active Additional Information Patient taking differently:2 [place] Each NostrilPRN, Allergies, Informant: Patient, Reported on [...] 15 mL 0 06/14/2023 Active Magic Swizzle (Hpracggpu-Jsrevajl-T aalox) oral solutionIndications:P haryngoesophageal dysphagia,History of abdominal [...] mRNA, LNP-s, No Pre serve, 2-Dose Series ([employer]) 01/05/2021,05/07/2020,04/16/2020 COVID-19, LNP-s, No Preserve , Jasbir-sucrose, [...] encounter Miscellaneous Notes * Telephone Encounter - Marta Mercado OSA - 06/27/2023 7:48 AM EDT [facility] Authorization Submission Submission Information: Medication: ZARIXO 480 MG Portal used: [facility] Insurance: [employer] Authorization #/Hung: [id number] Marta Mercado Medication Bond Trader 06/27/2023,7:50 AM * Telephone Encounter - Josh [...] Description 07/04/2023 10:30 AM EDT Imaging Radiology [facility] 2nd [facility] 132 [facility] [place] [address] 07/25/2023 3:15 PM EDT Office Visit Hematology/Oncology [facility] [address] [place] [address] Aguilar Lizarraga MD 200 [facility] [place] [address] 11/12/2023 9:20 AM EDT Office Visit General Internal Medicine [facility] [address] [place] [address] Nichole Lizarraga MD 200 [facility] [place] [address] 03/06/2024 11:40 AM EST Office Visit Nephrology, [facility] [address] [place], [place] [address] Demetrius Sherman MD 200 [facility] [place] [address] Health Maintenance Due Date Last Done Comments Zoster Vaccines (1 of 2) 01/23/1971 Colonoscopy 01/23/1997 Fecal Occult Blood Test 01/23/1997 Sigmoidoscopy 01/23/1997 DTaP,Tdap,and Td Vaccines (2 - Td or Tdap) 09/02/2022 09/02/2012 Albumin/Creatinine Ratio 03/13/2023 03/13/2022, 10/20 Cologuard 06/09/2023 06/08/2020, 10/25/2016 Colorectal Cancer Screening 06/09/2023 Mammogram 10/12/2023 10/11/2022, 05/0 04/2021, 01/18/2020, Additional history exists Depression Screening 11/07/2023 11/06/2022 GFR 12/27/2023 06/26/2023, 03/2023, 05/30/2023, Additional history exists CKD HGB USE SMARTSET 25563 06/25/202406/25, 06/26/2023, 06/20/2023, Additional history exists CKD PHOS USE SMARTSET 16469 06/25/2024 050 09/2023, 05/30/2023, 05/29/2023, Additional history [...] and were consensually agreed upon. Care Teams Meat Seafood Associate Relationship Specialty Start Date End Date Nichole Lizarraga MD 200 [facility] [place] [address] PCP - General Internal Medicine 03/10/12 documented as of this encounter
--- OUTSIDE RECORDS SUMMARY | 2023-06-30 22:46 | External Medical Summary | Summary of Care ---
Author Name Unknown Organization [facility] Address [address] [facility] [place] [address] Phone [phone] Care Team Providers Care Health And Safety Representative Name Role Phone Nichole Lizarraga MD Primary Care Provider + Reason for Visit * Reason Onset Date Comments Test Results Lab 06/26/2023 Encounter Details Date Type Department Care Team (Late st Contact Info) Description 06/26/2023 Refill Hematology/Oncology [facility] 200 [place] [place] [phone] Flor Lizarraga MD 200 [place] [address] Anemia in stage 4 chronic kidney disease [...] 10/16/2016 Active fluticasone (FLONASE) 50 MCG/ACT nasal sprayIndications:Ch ronic 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 1 Inhaler 5 04/21/2018 Active Additional Information Patient taking differently:2 [place] Each NostrilPRN, Allergies, Informant: Patient, Reported on 05/29/2023 Econazole Nitrate 1 % External Cream (Spectazole)Indicat ions:Tinea pedis of both feet,Onychomycosis Apply 2x daily from ankles down to feet/nails 2x daily for about 1 month until resolved, then 2x weekly to maintain clearance 170 g 2 11/21/2021 Active Azelastine HCl 137 MCG/SPRAY Nasal SolutionIndications :Chronic sinusitis, unspecified location ADMINISTER 1 SPRAY INTO NOSTRIL 2 TIMES A DAY. 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 Do not use for more than three days. 15 mL 0 06/14/2023 Active Magic Swizzle (Lidocaine-Benadryl -Maalox) oral solutionIndications :Pharyngoesophageal dysphagia,History of abdominal surgery Swish and swallow 15 mL in the morning and 15 mL at noon and 15 mL before bedtime. 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 12.8 mL 5 03/01/2023 Discontinue d(Refill) documented as of this encounter (statuses as [...] mRNA, LNP-s, No Pre serve, 2-Dose Series ([employer] 01/05/2021,05/07/2020,04/16/2020 COVID-19, LNP-s, No Preserve , Jasbir-sucrose, Ages 12+ ([employer] 09/06/2021 Covid-19, Mrna, Lnp-s, Pf, B ivalent, [...] (15 years old or older) No 05/26/19 24 Cognitive Status Response Date of Assessm ent Because of a physical, menta l, or emotional condition, do you have serious difficulty concentrating, remembering, or making decisions? (5 years old or older) No 05/26/2023 documented as of this encounter Miscellaneous Notes * Telephone Encounter - Flor Lizarraga MD - 06/26/2023 2:52 PM EDT E-prescribed Currently she is on G-CSF 480 microgram 4 days a week, would like to increase to 7 days a week. Flor Lizarraga MD Hem/Onc * Telephone Encounter - Flor Lizarraga MD - 06/26/2023 2:52 PM EDTSigned Prescriptions: Disp Refills Filgrastim-sndz 480 MCG/0.8ML Injection So*22.4 mL3 Sig: Inject 480 mcg under the skin in the morning.Authorizing Provider: FLOR LIZARRAGA * Addendum Note - Rosario Carrero RN [...] Description 07/04/2023 10:30 AM EDT Imaging Radiology [address] [facility] [place] [address] 07/25/2023 3:15 PM EDT Office Visit Hematology/Oncology [facility] [place] [address] [place] [address] Flor Lizarraga MD 200 [place] [place] [address] 11/12/2023 9:20 AM EDT Office Visit General Internal Medicine [facility] [address] [facility] [place], [place] [address] Nichole Lizarraga MD [address] [facility] [place] [address] 03/06/2024 11:40 AM EST Office Visit Nephrology, [facility] [address] [facility] [address] [place] [address] Demetrius Sherman MD 200 [facility] [place], [place] [address] Scheduled Orders Name Type Priority Associated Diagnoses [...] Additional history exists CKD PHOS USE SMARTSET 07770 05/29/2024 05/0 09/2023, 05/30/2023, 05/29/2023, Additional history exists CKD HGB USE SMARTSET 85274 06/25/202406/25, 06/26/2023, 06/20/2023, Additional history exists DXA [...] and were consensually agreed upon. Care Teams Health And Safety Representative Relationship Specialty Start Date End Date Nichole Lizarraga MD [address] [place] [address] [place] [address] PCP - General Internal Medicine 03/10/12 documented as of this encounter
--- OUTSIDE RECORDS SUMMARY | 2023-06-30 22:46 | External Medical Summary ---
Author Name Unknown Address Unknown Organization [id number]:[facility] [place] - [address] [place] [address] Laboratory Report Ordering Provider Test Date Status BRITTANEY TORRES 06/26/2023 13:45:29 Final Deficient: <20 ng/mL
Ins ufficient: 20-29 ng/mL
Recommended/Optimum:30-50 ng/mL

Vitamin D intoxication is rare. If suspicious of Vitamin D toxicity, evaluation of serum Calcium and PTH is recommended. Observation Date Value Abnormality Reference (Units ) Status 25-OH Vitamin D total 06/26/2023 13:45:29 54 >19 (ng/mL) Final Performing Location [facility] - [address] [place] [address]
--- OUTSIDE RECORDS SUMMARY | 2023-06-30 22:46 | External Medical Summary ---
Author Name Unknown Address Unknown Organization K09:[facility] [place] [address] Laboratory Report Ordering Provider Test Date Status KEN RAY 06/26/2023 13:45:29 Final Observation Date Value Abnormality Reference (Units ) Status Magnesium 06/26/2023 13:45:29 1.9 1.5-2.6 (m g/dL) Final Performing Location [place] [place] [address]
--- OUTSIDE RECORDS SUMMARY | 2023-06-30 22:46 | External Medical Summary | Summary of Care ---
Author Name Unknown Organization [facility] Address [address] [facility] [place] [address] Phone [phone] Care Team Providers Care Musculoskeletal Physiotherapist Name Role Phone Nichole Lizarraga MD Primary Care Provider + Reason for Visit * Reason Onset Date Comments Test Results Lab 06/26/2023 Encounter Details Date Type Department Care Team (Late st Contact Info) Description 06/26/2023 Refill Hematology/Oncology [facility] 200 [facility] [place] [address] Aguilar Lizarraga MD 200 [place] [address] Anemia in stage 4 chronic kidney disease [...] 10/16/2016 Active fluticasone (FLONASE) 50 MCG/ACT nasal sprayIndications: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 1 Inhaler 5 04/21/2018 Active Additional Information Patient taking differently:2 [place] Each NostrilPRN, Allergies, Informant: Patient, Reported on [...] 15 mL 0 06/14/2023 Active Magic Swizzle (Uwgaxrsju-Mkprxygt-Y aalox) oral solutionIndications:P haryngoesophageal dysphagia,History of abdominal [...] mRNA, LNP-s, No Pre serve, 2-Dose Series ([employer]) 01/05/2021,05/07/2020,04/16/2020 COVID-19, LNP-s, No Preserve , Jasbir-sucrose, [...] Description 07/04/2023 10:30 AM EDT Imaging Radiology [facility] 2nd [facility] [place] [address] [place] [address] 07/25/2023 3:15 PM EDT Office Visit Hematology/Oncology [facility] [address] [facility] [place] [address] Aguilar Lizarraga MD [address] [facility] [place] [address] 11/12/2023 9:20 AM EDT Office Visit General Internal Medicine [facility] [address] [facility] [address] [place] [address] Nichole Lizarraga MD [address] [facility] [place] [address] 03/06/2024 11:40 AM EST Office Visit Nephrology, [facility] [address] [place] [address] Demetrius Sherman MD 200 [facility] [place] [address] Scheduled Orders Name Type Priority Associated Diagnoses [...] Additional history exists CKD PHOS USE SMARTSET 78315 05/29/2024 05/0 09/2023, 05/30/2023, 05/29/2023, Additional history exists CKD HGB USE SMARTSET 79454 06/25/202406/25, 06/26/2023, 06/20/2023, Additional history exists DXA [...] and were consensually agreed upon. Care Teams Musculoskeletal Physiotherapist Relationship Specialty Start Date End Date Nichole Lizarraga MD 200 [facility] [place] [address] PCP - General Internal Medicine 03/10/12 documented as of this encounter
--- OUTSIDE RECORDS SUMMARY | 2023-06-30 22:46 | External Medical Summary | Summary of Care ---
Author Name Unknown Organization [facility] Address [address] [facility] [place] [address] Phone [phone] Care Team Providers Care Medicaid Plan Compliance Director Name Role Phone Nichole Lizarraga MD Primary Care Provider + Reason for Visit * Reason Onset Date Comments Precert In Process 06/26/2023 9 Marta Dominguez Filgrastim Encounter Details Date Type Department Care Team (Late st Contact Info) Description 06/26/2023 Telephone Hematology/Oncology [facility] 200 [facility] [place] [address] Aguilar Lizarraga MD 200 [place] [address] Precert In Process (9 Marta Dominguez Filgrast... 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 1 Inhaler 5 04/21/2018 Active Additional Information Patient taking differently:2 [place] Each NostrilPRN, Allergies, Informant: Patient, Reported on [...] 15 mL 0 06/14/2023 Active Magic Swizzle (Rgyghzaik-Kwmngrev-A aalox) oral solutionIndications:P haryngoesophageal dysphagia,History of abdominal [...] mRNA, LNP-s, No Pre serve, 2-Dose Series ([employer]) 01/05/2021,05/07/2020,04/16/2020 COVID-19, LNP-s, No Preserve , Jasbir-sucrose, [...] Mercado OSA - 06/27/2023 7:48 AM EDT [facility] Authorization Submission Submission Information: Medication: ZARIXO 480 MG Portal used: [facility] Insurance: [employer] Authorization #/Hung: [id number] Marta Mercado Medication Small Boat Engineer 06/27/2023,7:50 AM * Telephone Encounter - Josh [...] Description 07/04/2023 10:30 AM EDT Imaging Radiology [facility]nd [facility] 132 [facility] [place] [address] 07/25/2023 3:15 PM EDT Office Visit Hematology/Oncology [facility] [address] [place] [address] Aguilar Lizarraga MD [address] [facility] [place] [address] 11/12/2023 9:20 AM EDT Office Visit General Internal Medicine [facility] [address] [place] [address] Nichole Lizarraga MD 200 [facility] [place] [address] 03/06/2024 11:40 AM EST Office Visit Nephrology, [facility] [address] [place], [place] [address] Demetrius Sherman MD 200 [facility] [place] [address] Health Maintenance Due Date Last Done Comments [...] Additional history exists CKD HGB USE SMARTSET 41948 06/25/202406/25, 06/26/2023, 06/20/2023, Additional history exists CKD PHOS USE SMARTSET 49733 06/25/2024 050 09/2023, 05/30/2023, 05/29/2023, Additional history [...] and were consensually agreed upon. Care Teams Medicaid Plan Compliance Director Relationship Specialty Start Date End Date Nichole Lizarraga MD [address] [facility] [place] [address] PCP - General Internal Medicine 03/10/12 documented as of this encounter
--- OUTSIDE RECORDS SUMMARY | 2023-06-30 22:46 | External Medical Summary ---
Author Name Unknown Address Unknown Organization K09:[facility] [place] [address] - [address] [place] [address] Laboratory Report Ordering Provider Test Date Status KEN RAY 06/26/2023 13:45:29 Final Observation Date Value Abnormality Reference (Units ) Status SYNC LEUKOCYTES IN BLOOD BY AUTOMATED COUNT 06/26/2023 13:45:29 0.97 Below lower panic limits 4.00-10.80 (K/uL) Final Neutrophils/100 leukocytes in Blood by Manual count 06/26/2023 13:45:29 1.0 Below low normal 40.0-75.0 (%) Final Lymphocytes/100 leukocytes in Blood by Manual count 06/26/2023 13:45:29 64.0 Above high normal 18.0-42.0 (%) Final Monocytes/100 leukocytes in Blood by Manual count 06/26/2023 13:45:29 29.0 Above high normal 1.0-11.0 (%) Final Eosinophils/100 leukocytes in Blood by Manual count 06/26/2023 13:45:29 6.0 0.0-6.0 (%) Final Neutrophils [#/volume] in Blood by Manual count 06/26/2023 13:45:29 0.01 Below low normal 1.80-7.70 (K/uL) Final Lymphocytes [#/volume] in Blood by Manual count 06/26/2023 13:45:29 0.62 Below low normal 1.00-4.80 (K/uL) Final Monocytes [#/volume] in Blood by Manual count 06/26/2023 13:45:29 0.28 0.00-1.10 (K/uL) Final Eosinophils [#/volume] in Blood by Manual count 06/26/2023 13:45:29 0.06 0.00-0.70 (K/uL) Final Nucleated erythrocytes/100 leukocytes [Ratio] in Blood by Automated count 06/26/2023 13:45:29 Final Acanthocytes [Presence] in Blood by Light microscopy 06/26/2023 13:45:29 Moderate Abnormal None Seen Final Polychromasia [Presence] in Blood by Light microscopy 06/26/2023 13:45:29 Moderate Abnormal None Seen Final Target cells [Presence] in Blood by Light microscopy 06/26/2023 13:45:29 Moderate Abnormal None Seen Final Performing Location [facility] [place] [address] [place] [address]
--- OUTSIDE RECORDS SUMMARY | 2023-06-30 22:46 | External Medical Summary ---
Author Name Unknown Address Unknown Organization K01:[facility] [address] [place] [address] Laboratory Report Ordering Provider Test Date Status BRITTANEY TORRES 06/27/2023 15:26:11 Final Normal: <150 mg/ g creatinine
High: 150-500 mg/g creatinine
Very High: >500 mg/g creatinine
Nephrotic: >3000 mg/g creatinine Observation Date Value Abnormality Reference (Units ) Status Protein/Creatinine [Ratio] in Urine 06/27/2023 15:26:11 2860 Above high normal <150 (mg/g ) Final Protein, Urine 06/27/2023 15:26:11 286 (mg/dL) Final Creatinine, Urine 06/27/2023 15:26:11 100 (mg/dL) Final Performing Location [facility] [place] - [address] [place] [address]
--- OUTSIDE RECORDS SUMMARY | 2023-06-30 22:46 | External Medical Summary | Summary of Care ---
Author Name Unknown Organization [facility] Address [address] [facility] [place] [address] Phone [phone] Care Team Providers Care Circular Saw Operator Name Role Phone Nichole Campbell MD Primary Care Provider + Reason for Visit * Reason Comments Chronic Kidney Disease (CKD) Encounter Details Date Type Department Care Team (Late st Contact Info) Description 06/24/2023 10:40 AM EDT Office Visit Nephrology, [place] [address] [place] [address] Demetrius Sherman MD 200 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 1 Inhaler 5 04/21/2018 Active Additional Information Patient taking differently:2 [place] Each NostrilPRN, Allergies, Informant: Patient, Reported on [...] 15 mL 0 06/14/2023 Active Magic Swizzle (Axgswjwqq-Iqezqlpb-I aalox) oral solutionIndications:P haryngoesophageal dysphagia,History of abdominal surgery Swish and swallow 15 mL in the morning and 15 mL at noon and 15 mL before bedtime. 315 mL 0 06/14/2023 Active documented as of this encounter (statuses as of 06/24/2023) Active Problems Problem Noted Date Diagnosed Date [...] as of this encounter (statuses as of 06/24/2023) Resolved Problems Problem Noted Date Diagnosed Date Resolved Date Septic shock 05/26/2023 05/30/2023 Chronic kidney disease, stage 3b 04/30/2022 05/01/2023 Overview: Per CKD protocol Chronic kidney disease, stage 3a 05/29/2021 05/02/2022 Overview: Per CKD protocol Fever 09/13/2015 10/21/2017 Kidney stone on left side Inguinal hernia 10/21/2017 Overview: Surgical repair documented as of this encounter (statuses as of 06/24/2023) Immunizations Name Administration Dates Next Due COVID-19 mRNA, LNP-s, No Pre serve, 2-Dose Series ([employer]) 01/05/2021,05/07/2020,04/16/2020 COVID-19, LNP-s, No Preserve , Jasbir-sucrose, [...] Passive Smoke Exposure: Never Smokeless Tobacco: Never Tobacco Cessation:Counseling Given: Not Answered Alcohol Use Standard Drinks/Week Comments Not Currently [...] on file documented as of this encounter Last Filed Vital Signs Vital Sign Reading Time Taken Comments Blood Pressure 86/56 06/24/2023 10:50 AM EDT Pulse 99 06/24/2023 10:50 AM EDT Temperature 36.2 C (97.2 F) 06/24/2023 10:48 AM E DT Respiratory Rate 18 06/24/2023 10:48 AM EDT Oxygen Saturation 98% 06/24/2023 10:48 AM EDT Inhaled Oxygen Concentration - - Weight 52.6 kg (116 lb) 06/24/2023 10:48 AM EDT Height - - Body Mass Index 19.01 06/14/2023 11:55 AM EDT documented in this encounter Functional Status Functional Status Response [...] No 05/26/2023 documented as of this encounter Progress Notes * Demetrius Sherman MD - 06/24/2023 1:41 PM EDT New patient for me previously seen Dr. Aanyeli Kimball BACKGROUND: 73 year old female presents for f/u of ckd 3A in setting of bladder CA and solitary kidney. PMH includes bladder CA/ high grade L upper tract urothelial CA diagnosed 12/2020 and s/p L nephroureteroectomy and also completed intravesical BCG treatments (last tx was 11/2021), chronic neutropenia since 2012 on neupogen w/ Dr Campbell w/ hx of large granular lymphocytosis; has been on high dose prednisone and MTX in past for latter. stones x 1 . Since last visit---- large granular lymphocytic leukemia, pT2N0 high grade urothelial carcinoma of the left distal ureter s/p left nephroureterectomy with Dr. Royal 01/2021, and muscle invasive bladder cancer s/p radical cystectomy with ileal conduit diversion 05/08/23. Final pathology pT3bN0 high grade urothelial carcinoma with sarcomatoid differentiation. She was recently hospitalized with urosepsis requiring admission to the ICU from 05/25/23-05/30/23. One of her stents was likely clogged with mucus which resulted in right hydronephrosis. Urine culture at that time grew enterococcus, yeast, strep anginosus, and e.coli. She was treated with IV abx and discharged home on Augmentin. Getting Chemo through Dr campbell --4 days a week days a week. Has lost some weight and appetite is not good She does have significant edema. Blood pressure is low. She has not checking her blood pressure anymore. She is drinking lot of liquids but not much solid food History of stones: late hx of L stones s/p urologic intervention X 1 Family history of CKD or ESRD: no NSAID use: N Herbals/supplements: N Last hospital stay: Fall 2020 for nephrectomy Fluid intake in a day: Urologist: Dr Royal Acc by to many visits TODAY 10/18/2022: no acute interval clinical events. Drinks 80 oz daily mostly water. Next scan to f/u cancer in January. Has omron bp cuff; ntoc currently using. Very active gardening, maciel, weaving REVIEW OF SYSTEMS: No F/C, unintended wt loss or gain, energy level and appetite acceptable No palpitations, angina, orthopnea, LE edema No cough, wheeze, or dyspnea No N/V/D/C/abd pain No dysuria, hematuria, nocturia >2X; no new or worrisome voiding symptoms; less frequency now > down to 1-2 X nightly No rash or generalized itch No focal joint/muscle aches No inappropriate bleeding or bruising No tremor, seizures, focal or global weakness or paresthesias No orthostatic or presyncopal symptoms; no falls Current Outpatient Medications Medication Sig Dispense Refill loratadine (CLARITIN) 10 MG Tablet Take 1 Tablet by mouth every evening. 30 Tab 5 fluticasone (FLONASE) 50 MCG/ACT nasal spray Administer 2 Sprays into each nostril daily. (Patient taking differently: Administer 2 Sprays into each nostril as needed for Allergies.) 1 Inhaler 5 Econazole Nitrate 1 % External Cream (Spectazole) Apply 2x daily from ankles down to feet/nails 2x daily for about 1 month until resolved, then 2x weekly to maintain clearance 170 g 2 Azelastine HCl 137 MCG/SPRAY Nasal Solution ADMINISTER 1 SPRAY INTO NOSTRIL 2 TIMES A DAY. 90 mL 3 Ondansetron HCl 8 MG Oral Tablet (Zofran) Take 1 Tablet by mouth every 8 hours as needed for Nausea. 30 Tablet 2 Prochlorperazine Maleate 10 MG Oral Tablet (Compazine) Take 1 Tablet by mouth every 6 hours as needed for Nausea. 30 Tablet 2 Filgrastim-sndz 480 MCG/0.8ML Injection Solution Prefilled Syringe (Zarxio) Administer 480 mcg (1 syringe) 4 days a week throughout chemotherapy. 12.8 mL 5 Polyethylene Glycol 3350 17 GM/SCOOP Oral Powder (Miralax) Mix 17 grams of powder (1 capful to line) in 8 ounces of water or juice until dissolved and take by mouth daily at bedtime for constipation.(Patient taking differently: Take 17 g by mouth at bedtime as needed for Constipation.) 238 g 0 Sennosides 8.6 MG Oral Tablet (Senokot) Take 2 Tablets by mouth daily in the morning. (Patient taking differently: Take 2 Tablets by mouth daily as needed for Constipation.) 28 Tablet 1 Acetaminophen 325 MG Oral Tablet (Tylenol) Take 2 Tablets by mouth every 4 hours as needed for mildpain or for fever greater than 38*C (100.5*F). 30 Tablet 0 Magic Swizzle (Yxkzmexof-Hijadgmi-Opmagt) oral solution Swish and swallow 15 mL in the morning and 15 mL at noon and 15 mL before bedtime. 315 mL 0 PROBIOTIC DAILY PO CAPS Take 1 Capsule by mouth in the morning. (Patient not taking: Reported on 06/24/2023) Calcium Carbonate-Vitamin D 600-400 MG-UNIT Oral Tablet Chewable Take 1 Tablet by mouth in the morning. (Patient not taking: Reported on 06/24/2023) Oxymetazoline HCl 0.05 % Nasal Solution Administer 2 Sprays into each nostril 2 times a day as needed for Congestion (for congestion). Do not use for more than three days. 15 mL 0 No current facility-administered medications for this visit. Review of patient's allergies indicates: Allergen Reactions Penicillins Edema airway and Rash Last dose age 14 Tolerated Ancef Pollen Ragweed PHYSICAL EXAMINATION: BP Readings from Last 6 Encounters: 06/24/23 86/56 06/20/23 107/54 06/14/23 102/60 06/04/23 112/61 05/30/23 114/62 05/26/23 110/80 Wt Readings from Last 6 Encounters: 06/24/23 52.6 kg (116 lb) 06/20/23 54.6 kg (120 lb 6.4 oz) 06/14/23 56.7 kg (125 lb 1.6 oz) 06/04/23 59.1 kg (130 lb 3 oz) 05/29/23 58.6 kg (129 lb 3 oz) 05/25/23 52.6 kg (116 lb) Pulse Readings from Last 6 Encounters: 06/24/23 99 06/20/23 90 06/14/23 89 06/04/23 89 05/30/23 90 05/26/23 98 Examination Elderly white female who appears frail. She is awake alert oriented x3 and able to give detailed account of her medical history which is very complicated. No respiratory distress Mucous membrane is moist mucous membrane pale. No JVD Chest bilateral decreased breath sounds occasional crackles CVS S1-S2 regular abdomen is soft non tender Extremities shows 2+ pitting edema LABS: Recent Labs Units 06/20/23 1427 05/30/23 0501 05/29/23 0423 05/28/23 0449 SODIUM - [facility] mmol/L 133* 140 140 139 POTASSIUM - [facility] mmol/L 4.0 3.4* 3.4* 2.8* CHLORIDE - [facility] mmol/L 102 112* 113* 108* CO2 - [facility] mmol/L 19* 19* 18* 19* BUN - [facility] mg/dL 26* 12 11 16 CREATININE - [facility] mg/dL 1.7* 1.2* 1.3* 1.3* ESTIMATED GLOMERULAR FILTRATION RATE - [facility] mL/min 32* 49* 44* 44* Recent Labs Units 06/20/23 1427 05/30/23 0501 05/29/2342205/28/2344805/27/23 0438 HGB g/dL 6.6* 7.3* 8.2* 7.7* 8.4* FERRITIN - [facility] ng/mL 547* -- -- -- 386* TRANSFERRIN SATURATION PERCENT - [facility] % 6* -- -- -- 4* Recent Labs Units 06/20/23 14205/30/23 0501 05/29/2342205/28/2344805/27/23 0438 04/12/22 1059 03/13/22 1131 CALCIUM - [facility] mg/dL 8.5 7.9* 7.8* 7.5* 7.8* < > -- PHOSPHORUS - [facility] mg/dL -- 2.2* 2.2* 2.9 3.6 < > 3.9 25-HYDROXY VITAMIN D - [facility] ng/mL -- -- -- -- -- -- 56 PTH - [facility] pg/mL -- -- -- -- -- -- 47 < > = values in this interval not displayed. No results for input(s): "HGBA1C" in the last 39265 hours. Recent Labs Units 03/13/22 1131 11/09/21 1026 ALBUMIN/CREATININE RATIO, HIDE mg/g Creat Uninterpretable Albumin/Creatinine ratio due to very low albumin and creatinine values. -- ALBUMIN / CREATININE RATIO, URINE - [facility] mg/g Creat -- <30 Recent Labs Units 05/26/23 0322 03/13/22 1131 CLARITY, URINE - [facility] Slightly Cloudy* Clear GLUCOSE, URINE - [facility] mg/dL Negative Negative BILIRUBIN, URINE - [facility] Negative Negative KETONE, URINE - [facility] mg/dL Negative Negative SPECIFIC GRAVITY, URINE - [facility] 1.031* 1.010 BLOOD, URINE - [facility] Moderate* Negative PH, URINE - [facility] Units 6.0 6.5 PROTEIN, URINE - [facility] mg/dL 30* Negative UROBILINOGEN, URINE - [facility] mg/dL Normal 0.2 NITRITE, URINE - [facility] Negative Negative ESTERASE, URINE - [facility] Small* Negative BACTERIA, URINE - [facility] /HPF 26-50* 0-25 WBC, URINE - [facility] /HPF 50+* 0-2 RBC, URINE - [facility] /HPF 20-29* 0-2 ASSESSMENT AND PLAN: Stage 3b chronic kidney disease (HCC) (Primary) Kidney function does fluctuate at least in the last few months which is understandable. She underwent total cystectomy with ileal conduit for highly invasive bladder cancer. She is also getting chemotherapy. Also had hospital admission for urosepsis. At this point she has lot of edema which is definitely fluid overload but then her blood pressure is very low which makes it very hard to control the edema. Advise her not to drink so much liquid andtry to eat more solid food specially with high-protein. She has not on any medications to lower theblood pressure so there is nothing to stop She gets labs frequently with Hematology so will do labs as below with the next lab Her recent labs most importantly from nj 2023 was reviewed and shows sodium 133 potassium 4.0 creatinine 1.7 - CBC WITH WBC DIFFERENTIAL; Future; Expected date: 06/24/2023 - PTH; Future; Expected date: 06/24/2023 - PROTEIN/ CREATININE RATIO, URINE; Future; Expected date: 06/24/2023 - RENAL FUNCTION PANEL; Future; Expected date: 06/24/2023 - URINALYSIS WITH MICROSCOPIC EXAM; Future; Expected date: 06/24/2023 - MAGNESIUM; Future; Expected date: 06/24/2023 - 25-HYDROXY VITAMIN D; Future; Expected date: 06/24/2023 Acquired solitary kidney Status post nephrectomy for urothelial cancer. And now she had eyelid invasive bladder cancer for which he has undergone total cystectomy with ileal conduit. Recent complications with stent block is/hydronephrosis/urosepsis requiring hospitalization was reviewed in detail. Follow Up: Return in about 4 months (around 10/25/2023) for Clinic Visit. | For: Clinic Visit New patient for nj as well as hospital discharge---total time spent was 1 hour 5 minutes Demetrius Sherman MD documented in this encounter Nursing Notes * Deysi Calderon RN - 06/24/2023 10:50 AM EDT Follow up appointment today- Recently had bladder removed due to malignancy and is currently on Chemotherapy. Pt does have a urostomy. Pt's present in room for visit. Pt also had a blood transfusion this past Saturday. documented in this encounter Plan of Treatment Upcoming Encounters Date Type Department Care Team (Late st Contact Info) Description 07/04/2023 10:30 AM EDT Imaging Radiology [facility] 2nd [facility] [address] [facility] [place] [address] 07/25/2023 3:15 PM EDT Office Visit Hematology/Oncology [facility] [address] [place] [phone] Aguilar Campbell MD 200 [facility] [place] [address] 11/12/2023 9:20 AM EDT Office Visit General Internal Medicine [facility] [address] [place] [address] Nichole Campbell MD [address] [facility] [place] [address] 03/06/2024 11:40 AM EST Office Visit Nephrology, [facility] [address] [place] [address] Demetrius Sherman MD [address] [facility] [place] [address] Scheduled Orders Name Type Priority Associated Diagnoses Orde r Schedule CBC WITH WBC DIFFERENTIAL Lab Routine Stage 3b chronic kidney disease (HCC) Expected: 06/24/2023 (Approximate), Expires: 12/21/2023 PTH Lab Routine Stage 3b chronic kidney disease (HCC) Expected: 06/24/2023 (Approximate), Expires: 12/21/2023 PROTEIN/ CREATININE RATIO, URINE Lab Routine Stage 3b chronic kidney disease (HCC) Expected: 06/24/2023 (Approximate), Expires: 12/21/2023 RENAL FUNCTION PANEL Lab Routine Stage 3b chronic kidney disease (HCC) Expected: 06/24/2023 (Approximate), Expires: 12/21/2023 URINALYSIS WITH MICROSCOPIC EXAM Lab Routine Stage 3b chronic kidney disease (HCC) Expected: 06/24/2023 (Approximate), Expires: 12/21/2023 MAGNESIUM Lab Routine Stage 3b chronic kidney disease (HCC) Expected: 06/24/2023 (Approximate), Expires: 12/21/2023 25-HYDROXY VITAMIN D Lab Routine Stage 3b chronic kidney disease (HCC) Expected: 06/24/2023 (Approximate), Expires: 12/21/2023 Health Maintenance Due Date Last Done Comments [...] Additional history exists CKD PHOS USE SMARTSET 07267 05/29/202405/19, 05/29/2023, 05/28/2023, Additional history exists CKD HGB USE SMARTSET 01869 06/19/202406/19, 06/20/2023, 05/30/2023, Additional history exists DXA [...] Diagnoses Diagnosis Stage 3b chronic kidney disease (HCC)- Primary Acquired solitary kidney Acquired absence of kidney documented in this encounter Advance Directives Latest [...] and were consensually agreed upon. Care Teams Circular Saw Operator Relationship Specialty Start Date End Date Nichole Campbell MD [address] [facility] [place] [address] PCP - General Internal Medicine 03/10/12 documented as of this encounter
--- OUTSIDE RECORDS SUMMARY | 2023-06-30 22:46 | External Medical Summary | Summary of Care ---
Author Name Unknown Organization [facility] Address [address] [facility] [place] [address] Phone [phone] Care Team Providers Care Cheese Factory Worker Name Role Phone Nichole Lizarraga MD Primary Care Provider + Reason for Visit * Reason Onset Date Comments Test Results Lab 06/26/2023 Encounter Details Date Type Department Care Team (Late st Contact Info) Description 06/26/2023 Telephone Hematology/Oncology [facility] [address] [place] [phone] Flor Lizarraga MD 200 [place] [address] Test Results Lab Allergies Active Allergy Reactions Criticality Noted Date [...] 04/21/2018 Active Additional Information Patient taking differently:2 [place] Each NostrilPRN, Allergies, Informant: Patient, Reported [...] mRNA, LNP-s, No Pre serve, 2-Dose Series ([employer]) 01/05/2021,05/07/2020,04/16/2020 COVID-19, LNP-s, No Preserve , Jasbir-sucrose, Ages 12+ ([employer]) 09/06/2021 Covid-19, Mrna, Lnp-s, Pf, B ivalent, 30 Mcg, IM, 12 yrs and above ([employer]) 01/31/2022 PPD 02/19/2017 Pneumococcal Conjugate Vacc, 13 [...] encounter Miscellaneous Notes * Telephone Encounter - Rosario Carrero RN - 06/26/2023 3:16 PM EDT Called patient and informed her of her lab results. She is aware of the transfusion that is needed and the increase in her Zarxio injections (advised them to wait to increase to daily until we have authorization and shipment from [facility]). Patient to receive 1U PRBC. Called [facility] blood bank, spoke with Fritz, they will have a unit ready. Called [facility] central scheduling/[facility]- spoke with Shanice. Patient scheduled for 06/28/23 at 09:00AM. Patient verbalized understanding of appt time. Faxed order to [facility]/ blood bank. * Telephone Encounter - Rosario Carrero RN - 06/26/2023 3:03 PM EDT N:S- per note below, patient did not answer phone call. Will try again. She needs scheduled for 1U of PRBC. I spoke with Fritz in [place] and he said they have a unit for her. * Telephone Encounter - Flor Lizarraga MD [...] Description 07/04/2023 10:30 AM EDT Imaging Radiology [facility] [address] [facility] [address] [facility] [place] [address] 07/25/2023 3:15 PM EDT Office Visit Hematology/Oncology [facility] [address] [facility] [place] [phone] Flor Lizarraga MD [address] [facility] [place] [address] 11/12/2023 9:20 AM EDT Office Visit General Internal Medicine [facility] [place] [address] [facility] [place] [address] Nichole Lizarraga MD [address] [facility] [place] [address] 03/06/2024 11:40 AM EST Office Visit Nephrology, [facility] [address] [facility] [place] [address] Demetrius Sherman MD [address] [facility] [place] [address] Scheduled Orders Name Type Priority Associated Diagnoses [...] Additional history exists CKD PHOS USE SMARTSET 83953 05/29/2024 05/0 09/2023, 05/30/2023, 05/29/2023, Additional history exists CKD HGB USE SMARTSET 13189 06/25/202406/25, 06/26/2023, 06/20/2023, Additional history exists DXA [...] and were consensually agreed upon. Care Teams Cheese Factory Worker Relationship Specialty Start Date End Date Nichole Lizarraga MD [address] [place] [address] PCP - General Internal Medicine 03/10/12 documented as of this encounter
--- OUTSIDE RECORDS SUMMARY | 2023-06-30 22:46 | External Medical Summary | Summary of Care ---
Author Name Unknown Organization [facility] Address [address] [place] [address] Phone [phone] Care Team Providers Care Tracing Lathe Set Up Operator Name Role Phone Nichole Lizarraga MD Primary Care Provider + Encounter Details Date Type Department Care Team (Late st Contact Info) Description 03/27/2023 Telephone Urology, [place] [address] [place] [address] Saul Vargas MD [address] [place] [address] Allergies Active Allergy Reactions Criticality Noted Date [...] 04/21/2018 Active Additional Information Patient taking differently:2 [place] Each NostrilPRN, Allergies, Informant: Patient, Reported on [...] for Nausea. 30 Tablet 2 03/01/2023 Active documented as of this encounter (statuses [...] mRNA, LNP-s, No Pre serve, 2-Dose Series ([employer]) 01/05/2021,05/07/2020,04/16/2020 COVID-19, LNP-s, No Preserve , Jasbir-sucrose, [...] Packs/Day Years Used Date Smoking Tobacco: Never Smokeless Tobacco: Never Alcohol Use Standard Drinks/Week Comments Yes 4.2 (1 standard drink = 0.6 oz p ure alcohol) occ PHQ-2 Answer Date Recorded PHQ Adult Total [...] on file documented as of this encounter Miscellaneous Notes * Telephone Encounter - Chen Guzman OSA - 03/27/2023 1:25 PM EST Patient is calling to reschedule with Dr Vargas as soon as possible. She has bladder cancer and isn't a candidate for chemotherapy. She will be needing surgery. Dr Lizarraga from hem/onc has been in conversation with Dr Vargas. documented in this encounter Plan of Treatment Upcoming Encounters Date Type Department Care Team (Late st Contact Info) Description 07/04/2023 10:30 AM EDT Imaging Radiology [facility] [address] [place] [address] 07/25/2023 3:15 PM EDT Office Visit Hematology/Oncology [facility] [address] [place] [address] [phone] Aguilar Lizarraga MD [address] [place] [address] 11/12/2023 9:20 AM EDT [facility] [place] [address] [place] [address] Nichole Lizarraga MD 200 [facility] [place] [address] 03/06/2024 11:40 AM EST Office Visit Nephrology, [facility] [address] [place] [address] [address] Demetrius Sherman MD [address] [facility] [place] [address] Health Maintenance Due Date Last Done Comments [...] 05/0 03/2023, 05/30/2023, Additional history exists CKD PHOS USE SMARTSET 21393 05/29/2024 05/0 09/2023, 05/30/2023, 05/29/2023, Additional history exists CKD HGB USE SMARTSET 69592 06/25/202406/25, 06/26/2023, 06/20/2023, Additional history exists DXA [...] Not on filedocumented as of this encounter Additional Health Concerns Infection Onset Date Last Indicated Resolved Time Respiratory Rule-Out 05/25/2023 05/25/20232 024 10:11 PM EDT COVID-19 Rule-Out 05/25/2023 05/25/2023 05/25/2023 10:11 PM EDT documented as of this encounter Advance Directives Latest [...] and were consensually agreed upon. Care Teams Tracing Lathe Set Up Operator Relationship Specialty Start Date End Date Nichole Lizarraga MD [address] [facility] [place] [address] PCP - General Internal Medicine 03/10/12 documented as of this encounter
--- OUTSIDE RECORDS SUMMARY | 2023-06-30 22:46 | External Medical Summary ---
Author Name Unknown Address Unknown Organization K01:LABORATORY [facility] [place] - [address] [facility] [facility] [address] Laboratory Report Ordering Provider Test Date Status BRITTANEY TORRES 06/27/2023 15:26:11 Final Observation Date Value Abnormality Reference (Units ) Status Color of Urine by Auto 06/27/2023 15:26:11 Yellow Colorless, Light Yellow, Yellow, Dark Yellow Final Clarity, Urine 06/27/2023 15:26:11 Slightly Cloudy Abnormal Clear Final Glucose [Mass/volume] in Urine by Automated test strip 06/27/2023 15:26:11 Negative Negative (mg/dL) Final Bilirubin.total [Presence] in Urine by Automated test strip 06/27/2023 15:26:11 Negative Negative Final Ketones [Mass/volume] in Urine by Automated test strip 06/27/2023 15:26:11 Negative Negative (mg/dL) Final Specific gravity, Urine 06/27/2023 15:26:11 1.018 1.003-1.030 Final Hemoglobin [Presence] in Urine by Automated test strip 06/27/2023 15:26:11 Trace Abnormal Negative Final pH, Urine 06/27/2023 15:26:11 6.5 5.0-7.5 (Units) Final Protein [Mass/volume] in Urine by Automated test strip 06/27/2023 15:26:11 100 Abnormal Negative (mg/dL) Final Urobilinogen [Mass/volume] in Urine by Automated test strip 06/27/2023 15:26:11 Normal Normal (mg/dL) Final Nitrite [Presence] in Urine by Automated test strip 06/27/2023 15:26:11 Negative Negative Final Leukocyte esterase [Presence] in Urine by Automated test strip 06/27/2023 15:26:11 Negative Negative Final RBC, Urine 06/27/2023 15:26:11 3-5 Abnormal 0-2 (/HPF) Final WBC, Urine 06/27/2023 15:26:11 3-5 Abnormal 0-2 (/HPF) Final Bacteria [#/area] in Urine sediment by Microscopy high power field 06/27/2023 15:26:11 >200 Abnormal 0-25 (/HPF) Final Hyaline casts, Urine 06/27/2023 15:26:11 1-4 Abnormal None (/LPF) Final Performing Location LABORATORY [facility] [place] - [facility] [address] [facility] [address]
--- OUTSIDE RECORDS SUMMARY | 2023-06-30 22:47 | External Medical Summary | Summary of Care ---
Author Name Unknown Organization [facility] Address [address] [address] Phone [phone] Care Team Providers Care Levers Lace Machine Operator Name Role Phone Nichole Lizarraga MD Primary Care Provider + Reason for Visit * Reason Onset Date Comments Home Health 06/11/2023 FYI 06/11/2023 Encounter Details Date Type Department Care Team (Late st Contact Info) Description 06/11/2023 Telephone General Internal Medicine [facility] [address] [place] [address] Nichole Lizarraga MD [address] [place] [address] Home Health; Allergies Active Allergy Reactions Criticality Noted Date Comments Penicillins Edema airway,Rash High 03/10/2012 Last dose age 14 Tolerated Ancef Pollen 01/17/2021 Ragweed 11/05/2022 documented as of this encounter (statuses as of 06/15/2023) Medications Medication Sig Dispensed Refills Start Date [...] 10/16/2016 Active fluticasone (FLONASE) 50 MCG/ACT nasal sprayIndications:Banana Grader 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 1 Inhaler 5 04/21/2018 Active Additional Information Patient taking differently:2 [place] Each NostrilPRN, Allergies, Informant: Patient, Reported on [...] 38*C (100.5*F). 30 Tablet 0 05/30/2023 Active documented as of this encounter (statuses as of 06/15/2023) Active Problems Problem Noted Date Diagnosed Date [...] as of this encounter (statuses as of 06/15/2023) Resolved Problems Problem Noted Date Diagnosed Date Resolved Date Septic shock 05/26/2023 05/30/2023 Chronic kidney disease, stage 3b 04/30/2022 05/01/2023 Overview: Per CKD protocol Chronic kidney disease, stage 3a 05/29/2021 05/02/2022 Overview: Per CKD protocol Fever 09/13/2015 10/21/2017 Kidney stone on left side Inguinal hernia 10/21/2017 Overview: Surgical repair documented as of this encounter (statuses as of 06/15/2023) Immunizations Name Administration Dates Next Due COVID-19 mRNA, LNP-s, No Pre serve, 2-Dose Series ([employer]) 01/05/2021,05/07/2020,04/16/2020 COVID-19, LNP-s, No Preserve , Jasbir-sucrose, Ages 12+ ([employer]) 09/06/2021 Covid-19, Mrna, Lnp-s, Pf, B ivalent, 30 Mcg, IM, 12 yrs and above ([employer]) 01/31/2022 PPD 02/19/2017 Pneumococcal Conjugate Vacc, 13 [...] encounter Miscellaneous Notes * Telephone Encounter - Kajal Guevara LPN - 06/13/2023 8:14 AM EDT Patient's calling to request an appt for the patient. Scheduled for appt tomorrow at their request for this date. * Telephone Encounter - Belgica Arredondo LPN - 06/12/2023 2:47 PM EDT CHRISTIAN Villela calling from [facility]. They are able to do a nasal swab for flu and covid. They can do it tomorrow when they see her. * Telephone Encounter - Sofie Ervin LPN - 06/12/2023 9:22 AM EDT Patient is aware and verbalizes understanding. Offered patient appt but she declined and would like to try Tylenol, increase fluids and Mucinex She will call back if she changes her mind or sx's become worse Called Tika ([facility]) to find out if doing a nasal swab for COVID and FLU is possible She will look into this and call back * Telephone Encounter - Lorena Lauren MED ASSIST - 06/12/2023 9:02 AM EDT Called patient, left message to return call. * Telephone Encounter - Nichole Lizarraga MD - 06/11/2023 4:40 PM EDT Noted. Continue symptomatic treatment with tylenol, hydration, Mucinex if cough with phlegm. If symptoms do not improve or gets worse I wonder if nursing can do home nasopharyngeal swab for COVID, flu even though she did not have any exposure. Offer acute visit appointment with me or any provider who can see her sooner * Telephone Encounter - Kajal Guevara LPN - 06/11/2023 1:56 PM EDT HH Concerns Tika RN, Calling from: [facility] Report/Concerns of: cold symptoms Symptoms: see narrative Vitals: T 99.1 P 58 RR 18 BP 110/58 SP O2 100% Lung sounds- lungs clear, moist cough Narrative: CHRISTIAN Villela calling, she is currently seeing the patient right now. Currently has cold symptoms: Temp at 8:00am was 103.1 Took Tylenol 650mg Temp at 1:00pm was 99.1. Took Tylenol 650mg. Scratchy throat, nasally. X 3 days. Redness noted in her throat. When patient swallows she has a "sensation" in right ear, no pain. Unable to describe the feeling. Chills x 1 week Cough x 1 week - productive originally. Head pressure. Denies SOB, wheezing. had similar symptoms last week, his symptoms have resolved. They haven't been exposed to Covid. nurses seeing patient 2x weekly. Tika will see her again on 06/12 and call back if symptoms are worsening or there's any concerns. In the mean time, please advise your recommendations for her symptoms. Patient said that she typically drinks herbal tea and let's it run it's course otherwise. Call back Linsey with any advice. documented in this encounter Plan of Treatment Upcoming Encounters Date Type Department Care Team (Late st Contact Info) Description 06/20/2023 1:45 PM EDT Office Visit Hematology/Oncology [facility] [address] [facility] [place], [place] [phone] Aguilar Lizarraga MD [address] [facility] [place] [address] 06/24/2023 10:40 AM EDT Office Visit Nephrology, [facility] [address] [facility] [place], [place] [address] Demetrius Sherman MD [address] [facility] [place] [address] 07/04/2023 10:30 AM EDT Imaging Radiology [facility] [address] [facility] [place] [address] [place] [address] 07/25/2023 11:00 AM EDT Office Visit Hematology/Oncology [facility] [address] [facility] [place], [place] [phone] Deyanira Lauren CRNP [address] [place] [address] 11/12/2023 9:20 AM EDT Office Visit General Internal Medicine [facility] [place] [address] [place], [place] [address] Nichole Lizarraga MD [address] [facility] [place], [place] [address] Health Maintenance Due Date Last Done Comments Zoster Vaccines (1 of 2) 01/23/1971 Colonoscopy 01/23/1997 Fecal Occult Blood Test 01/23/1997 Sigmoidoscopy 01/23/1997 DTaP,Tdap,and Td Vaccines (2 - Td or Tdap) 09/02/2022 09/02/2012 Albumin/Creatinine Ratio 03/13/2023 03/13/2022, 10/20 Cologuard 06/09/2023 06/08/2020, 10/25/2016 Colorectal Cancer Screening 06/09/2023 Mammogram 10/12/2023 10/11/2022, 05/0 04/2021, 01/18/2020, Additional history exists Depression Screening 11/07/2023 11/06/2022 GFR 11/29/2023 05/30/2023, 05/19, 05/28/2023, Additional history exists CKD HGB USE SMARTSET 77313 05/29/202405/29, 05/29/2023, 05/28/2023, Additional history exists CKD PHOS USE SMARTSET 71574 05/29/202405/19, 05/29/2023, 05/28/2023, Additional history exists DXA Scan 10/02/2024 10/02/2022, [...] and were consensually agreed upon. Care Teams Levers Lace Machine Operator Relationship Specialty Start Date End Date Nichole Lizarraga MD [address] [facility] [place] [address] PCP - General Internal Medicine 03/10/12 documented as of this encounter
--- OUTSIDE RECORDS SUMMARY | 2023-06-30 22:47 | External Medical Summary | Summary of Care ---
Author Name Unknown Organization [facility] Address [address] [address] Phone [phone] Care Team Providers Care Casual Shoe Inspector Name Role Phone Nichole Lizarraga MD Primary Care Provider + Reason for Visit * Reason Onset Date Comments FYI 06/13/2023 Encounter Details Date Type Department Care Team (Late st Contact Info) Description 06/13/2023 Telephone General Internal Medicine [facility] [address] [place] [address] Nichloe Lizarraga MD [address] [place] [address] FYI Allergies Active Allergy Reactions Criticality Noted Date Comments Penicillins Edema airway,Rash High 03/10/2012 Last dose age 14 Tolerated Ancef Pollen 01/17/2021 Ragweed 11/05/2022 documented as of this encounter (statuses as of 06/14/2023) Medications Medication Sig Dispensed Refills Start Date [...] 10/16/2016 Active fluticasone (FLONASE) 50 MCG/ACT nasal sprayIndications:Threshing Department Supervisor 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 1 Inhaler 5 04/21/2018 Active Additional Information Patient taking differently:2 [place] Each NostrilPRN, Allergies, Informant: Patient, Reported on [...] as of this encounter (statuses as of 06/14/2023) Active Problems Problem Noted Date Diagnosed Date [...] as of this encounter (statuses as of 06/14/2023) Resolved Problems Problem Noted Date Diagnosed Date Resolved Date Septic shock 05/26/2023 05/30/2023 Chronic kidney disease, stage 3b 04/30/2022 05/01/2023 Overview: Per CKD protocol Chronic kidney disease, stage 3a 05/29/2021 05/02/2022 Overview: Per CKD protocol Fever 09/13/2015 10/21/2017 Kidney stone on left side Inguinal hernia 10/21/2017 Overview: Surgical repair documented as of this encounter (statuses as of 06/14/2023) Immunizations Name Administration Dates Next Due COVID-19 mRNA, LNP-s, No Pre serve, 2-Dose Series ([employer]) 01/05/2021,05/07/2020,04/16/2020 COVID-19, LNP-s, No Preserve , Jasbir-sucrose, Ages 12+ ([employer]) 09/06/2021 Covid-19, Mrna, Lnp-s, Pf, B ivalent, 30 Mcg, IM, 12 yrs and above ([employer]) 01/31/2022 PPD 02/19/2017 Pneumococcal Conjugate Vacc, 13 [...] encounter Miscellaneous Notes * Telephone Encounter - Domenica Villanueva LPN - 06/14/2023 4:37 PM EDT See other TE. Rx has been called in. * Telephone Encounter - Lucia Pereira MD - 06/14/2023 12:38 PM EDT [address]inter problem [address] call in RX magic mouth wash to [facility] * Telephone Encounter - Julianne Villatoro LPN - 06/14/2023 8:18 AM EDT Pt calling due to testing positive for Covid last night. She is unable to determine when her covid sx started. On 05/07 she had surgery on her abdomen in [place], she was admitted for 6 days. 4 days after d/c from the hospital, she developed a fever. She was readmitted to [place] from 05/25 to 05/29 for complicated UTI. She has had off and on fevers since the beginning of May. She has sinus congestion since begin of May. Sx worsened about week ago. Sinus congestion, dry cough sore throat, her ears hurt when she swallows. No sob, she is fatigue. She is taking mucinex and tylenol. Yesterday she was scheduled for an appt today with Dr Pereira at 11:40. She will keep this appt. * Telephone Encounter - Yumiko Velez OSA - 06/13/2023 6:08 PM EDT Cata from [facility] states that she had received a phone call from [facility] lab that a Covid test was dropped off earlier on 06/13/23 and had tested positive. documented in this encounter Plan of Treatment Upcoming Encounters Date Type Department Care Team (Late st Contact Info) Description 06/20/2023 1:45 PM EDT Office Visit Hematology/Oncology [facility] [place] [address] [place] [address] [phone] Aguilar Lizarraga MD [address] [place] [address] 06/24/2023 10:40 AM EDT Office Visit Nephrology, [facility] [address] [place] [address] Demetrius Sherman MD [address] [place] [address] 07/04/2023 10:30 AM EDT Imaging Radiology [facility] [address] [facility] [place] [address] [facility] [place] [address] 07/25/2023 11:00 AM EDT Office Visit Hematology/Oncology [facility] [place] [address] [place] [address] [phone] Deyanira Lauren CRNP [address] [place] [address] [place] [address] 11/12/2023 9:20 AM EDT Office Visit General Internal Medicine [facility] [place] [address] [place] [address] Nichole Lizarraga MD [address] [place] [address] Health Maintenance Due Date Last Done Comments [...] Additional history exists CKD HGB USE SMARTSET 29834 05/29/202405/29, 05/29/2023, 05/28/2023, Additional history exists CKD PHOS USE SMARTSET 52909 05/29/202405/19, 05/29/2023, 05/28/2023, Additional history exists DXA [...] and were consensually agreed upon. Care Teams Casual Shoe Inspector Relationship Specialty Start Date End Date Nichole Lizarraga MD [address] [place] [address] PCP - General Internal Medicine 03/10/12 documented as of this encounter
--- OUTSIDE RECORDS SUMMARY | 2023-06-30 22:47 | External Medical Summary ---
Author Name Unknown Address Unknown Organization K01:[facility] [place] [address] [place] [address] Laboratory Report Ordering Provider Test Date Status FLORKEN 06/20/2023 14:27:46 Final Observation Date Value Abnormality Reference (Units ) Status Folic Acid 06/20/2023 14:27:46 >20.0 >4.5 (ng/ mL) Final Performing Location LABORATORY C - [address] [place] [address]
--- OUTSIDE RECORDS SUMMARY | 2023-06-30 22:47 | External Medical Summary ---
Author Name Unknown Address Unknown Organization K09:[facility]ATORY [place] [address] Laboratory Report Ordering Provider Test Date Status KEN RAY 06/20/2023 14:27:46 Final Observation Date Value Abnormality Reference (Units ) Status WBC, Total 06/20/2023 14:27:46 3.28 Below low normal 4. 00-10.80 (K/uL) Final RBC 06/20/2023 14:27:46 2.56 3.85-5.15 (M/uL) Final Hemoglobin 06/20/2023 14:27:46 6.6 Below low normal 12 .0-15.3 (g/dL) Final HCT 06/20/2023 14:27:46 21.1 Below low normal 36. 0-45.2 (%) Final MCV 06/20/2023 14:27:46 82.4 81.5-97.5 (fL) Final MCH 06/20/2023 14:27:46 25.8 27.0-34.0 (pg) Final MCHC 06/20/2023 14:27:46 31.3 32.0-36.0 (g/dL) Final RDW 06/20/2023 14:27:46 19.7 11.5-15.5 (%) Final Platelets 06/20/2023 14:27:46 418 Above high normal 14 0-400 (K/uL) Final MPV 06/20/2023 14:27:46 10.1 6.6-11.1 ( fL) Final Performing Location LABORATORY [place] [address]
--- OUTSIDE RECORDS SUMMARY | 2023-06-30 22:47 | External Medical Summary ---
Author Name Unknown Address Unknown Organization K01:LABORATORY [facility] [place] [address] [place] [address] Laboratory Report Ordering Provider Test Date Status KEN RAY 06/20/2023 14:27:46 Final Observation Date Value Abnormality Reference (Units ) Status Ferritin 06/20/2023 14:27:46 547 Above high normal 13 -150 (ng/mL) Final Postmenopausal women have hi gher ferritin levels than pre-menopausal women. The above reference interval is based on pre-menopausal women. Performing Location LABORATORY [facility] [place] - [address] [place] [address]
--- OUTSIDE RECORDS SUMMARY | 2023-06-30 22:47 | External Medical Summary | Summary of Care ---
Author Name Unknown Organization [facility] Address [address] [place] [place] [place] [address] Phone [phone] Care Team Providers Care Traffic Operator Name Role Phone Nichole Lizarraga MD Primary Care Provider + Reason for Visit * Reason Onset Date Comments Test Results Lab 06/20/2023 Encounter Details Date Type Department Care Team (Late st Contact Info) Description 06/20/2023 Telephone Hematology/Oncology [facility], [place] [address] [place] [phone] Aguilar Lizararga MD [address] [place] [address] Test Results Lab Allergies Active Allergy Reactions Criticality Noted Date Comments Penicillins Edema airway,Rash High 03/10/2012 Last dose age 14 Tolerated Ancef Pollen 01/17/2021 Ragweed 11/05/2022 documented as of this encounter (statuses as of 06/21/2023) Medications Medication Sig Dispensed Refills Start Date [...] 10/16/2016 Active fluticasone (FLONASE) 50 MCG/ACT nasal sprayIndications:Tunnel Kiln Operator 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 1 Inhaler 5 04/21/2018 Active Additional Information Patient taking differently:2 [place] Each NostrilPRN, Allergies, Informant: Patient, Reported on [...] 15 mL 0 06/14/2023 Active Magic Swizzle (Msrjosfcr-Piemdzjg-K aalox) oral solutionIndications:P haryngoesophageal dysphagia,History of abdominal surgery Swish and swallow 15 mL in the morning and 15 mL at noon and 15 mL before bedtime. 315 mL 0 06/14/2023 Active documented as of this encounter (statuses as of 06/21/2023) Active Problems Problem Noted Date Diagnosed Date [...] as of this encounter (statuses as of 06/21/2023) Resolved Problems Problem Noted Date Diagnosed Date Resolved Date Septic shock 05/26/2023 05/30/2023 Chronic kidney disease, stage 3b 04/30/2022 05/01/2023 Overview: Per CKD protocol Chronic kidney disease, stage 3a 05/29/2021 05/02/2022 Overview: Per CKD protocol Fever 09/13/2015 10/21/2017 Kidney stone on left side Inguinal hernia 10/21/2017 Overview: Surgical repair documented as of this encounter (statuses as of 06/21/2023) Immunizations Name Administration Dates Next Due COVID-19 mRNA, LNP-s, No Pre serve, 2-Dose Series ([employer]) 01/05/2021,05/07/2020,04/16/2020 COVID-19, LNP-s, No Preserve , Jasbir-sucrose, [...] encounter Miscellaneous Notes * Telephone Encounter - Dee Brush RN - 06/21/2023 8:59 AM EDT Consent faxed to [facility]. * Telephone Encounter - Dee Brush RN - 06/20/2023 3:[address] Lizarraga: "Blood workup done on 06/20/2023: -WBC 3200, H&H of 6.6/21, Platelet count of 555006 -ANC 1200, Absolute lymphocyte count 1400. -BUN/Creat: 26/1.7, Normal liver function tests other than albumin level of 2.3. Overall worsening anemia noted, I would like to transfuse 1 unit of PRBC at [facility]. She can come to the clinic for the consent tomorrow morning. No significant neutropenia She will continue G-CSF 4 days a week as we planned. " Called patient- she is agreeable to this. Patient to receive 1 unit PRBC. Called [facility] blood bank ([place]). They have no history. Provided T&S information from Veronica. He does not see any issue with transfusing but notes they will still need to do 2 T&S first. Called [facility] ([place]) Patient scheduled for tomorrow at 9am. Called patient. Asked her to come at 8am for consent, then she can go to [facility] for transfusion. Patient verbalized understanding of appt time. Faxed order to [facility]/ blood bank. documented in this encounter Plan of Treatment Upcoming Encounters Date Type Department Care Team (Late st Contact Info) Description 06/24/2023 10:40 AM EDT Office Visit Nephrology, [facility] [address] [place] [address] Demetrius Sherman MD [address] [facility] [place] [address] 07/04/2023 10:30 AM EDT Imaging Radiology [facility] 2nd [facility] [place] [address] [facility] [place] [address] 07/25/2023 3:15 PM EDT Office Visit Hematology/Oncology [facility] [address] [phone] Aguilar Lizarraga MD [address] [facility] [place] [address] 11/12/2023 9:20 AM EDT Office Visit General Internal Medicine [facility] [address] [place] [address] Nichole Lizarraga MD [address] [facility] [place] [address] Health Maintenance Due Date Last Done Comments [...] Additional history exists CKD PHOS USE SMARTSET 48662 05/29/202405/19, 05/29/2023, 05/28/2023, Additional history exists CKD HGB USE SMARTSET 54399 06/19/202406/19, 06/20/2023, 05/30/2023, Additional history exists DXA [...] and were consensually agreed upon. Care Teams Traffic Operator Relationship Specialty Start Date End Date Nichole Lizarraga MD [address] [place] [address] PCP - General Internal Medicine 03/10/12 documented as of this encounter
--- OUTSIDE RECORDS SUMMARY | 2023-06-30 22:47 | External Medical Summary | Summary of Care ---
Author Name Unknown Organization [facility] Address [address] [facility] [place] [address] Phone [phone] Care Team Providers Care Auto Crane Driver Name Role Phone Nichole Lizarraga MD Primary Care Provider + Encounter Details Date Type Department Care Team (Late st Contact Info) Description 06/17/2023 Orders Only General Internal Medicine [facility] [place] [address] [facility] [place] [address] Nichole Lizarraga MD [address] [place] [address] Allergies Active Allergy Reactions Criticality Noted Date Comments Penicillins Edema airway,Rash High 03/10/2012 Last dose age 14 Tolerated Ancef Pollen 01/17/2021 Ragweed 11/05/2022 documented as of this encounter (statuses as of 06/17/2023) Medications Medication Sig Dispensed Refills Start Date [...] 10/16/2016 Active fluticasone (FLONASE) 50 MCG/ACT nasal sprayIndications:Therapeutic Assistant 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 1 Inhaler 5 04/21/2018 Active Additional Information Patient taking differently:2 [place] Each NostrilPRN, Allergies, Informant: Patient, Reported on [...] 15 mL 0 06/14/2023 Active Magic Swizzle (Rukbzgcwn-Krsmdsmw-D aalox) oral solutionIndications:P haryngoesophageal dysphagia,History of abdominal surgery Swish and swallow 15 mL in the morning and 15 mL at noon and 15 mL before bedtime. 315 mL 0 06/14/2023 Active documented as of this encounter (statuses as of 06/17/2023) Active Problems Problem Noted Date Diagnosed Date [...] as of this encounter (statuses as of 06/17/2023) Resolved Problems Problem Noted Date Diagnosed Date Resolved Date Septic shock 05/26/2023 05/30/2023 Chronic kidney disease, stage 3b 04/30/2022 05/01/2023 Overview: Per CKD protocol Chronic kidney disease, stage 3a 05/29/2021 05/02/2022 Overview: Per CKD protocol Fever 09/13/2015 10/21/2017 Kidney stone on left side Inguinal hernia 10/21/2017 Overview: Surgical repair documented as of this encounter (statuses as of 06/17/2023) Immunizations Name Administration Dates Next Due COVID-19 mRNA, LNP-s, No Pre serve, 2-Dose Series (Nexalogy) 01/05/2021,05/07/2020,04/16/2020 COVID-19, LNP-s, No Preserve , Jasbir-sucrose, [...] 06/20/2023 1:45 PM EDT Office Visit Hematology/Oncology [facility] [address] [place] [phone] Aguilar Lizarraga MD [address] [place] [address] 06/24/2023 10:40 AM EDT Office Visit Nephrology, [facility] [address] [place] [address] [address] Demetrius Sherman MD [address] [place] [address] 07/04/2023 10:30 AM EDT Imaging Radiology [facility] 2nd [facility], [place] [address] [facility] [place] [address] 07/25/2023 11:00 AM EDT Office Visit Hematology/Oncology [facility] [address] [place] [address] Deyanira Lauren CRNP [address] [place], [place] [address] [id number] 11/12/2023 9:20 AM EDT Office Visit General Internal Medicine [place] [address] [place] [address] Nichole Lizarraga MD [address] [facility] [place] [address] Health Maintenance Due Date Last Done Comments [...] Additional history exists CKD HGB USE SMARTSET 26909 05/29/202405/29, 05/29/2023, 05/28/2023, Additional history exists CKD PHOS USE SMARTSET 73461 05/29/202405/19, 05/29/2023, 05/28/2023, Additional history exists DXA [...] Not on filedocumented as of this encounter Procedures Procedure Name Priority Date/Time Associated Diagnosis Comments OUTSIDE LAB-CORONAVIRUS (COVID-19) Routine 06/13/2023 documented in this encounter Results * (ABNORMAL) OUTSIDE LAB-CORONAVIRUS (COVID-19) (06/13/2023) [id number] E LAB DETECTED(A ) OUTSIDE LAB (SEE SCANNED REPORT) 06/13/2023 Nichole Lizarraga MD LABORATORY OUTSIDE LAB (SEE SCANNED REPORT) documented in this encounter Advance Directives Latest [...] and were consensually agreed upon. Care Teams Auto Crane Driver Relationship Specialty Start Date End Date Nichole Lizarraga MD [address] [place] [address] PCP - General Internal Medicine 03/10/12 documented as of this encounter
--- OUTSIDE RECORDS SUMMARY | 2023-06-30 22:47 | External Medical Summary | Summary of Care ---
Author Name Unknown Organization [facility] Address [address] [facility] [place] [address] Phone [phone] Care Team Providers Care Armature Coil Winder Name Role Phone Nichole Lizarraga MD Primary Care Provider + Reason for Visit * Reason Onset Date Comments Home Health 06/11/2023 FYI 06/11/2023 Encounter Details Date Type Department Care Team (Late st Contact Info) Description 06/11/2023 Telephone General Internal Medicine [facility] [address] [place] [address] Nichole Lizarraga MD 200 [place] [address] Home Health; Allergies Active Allergy Reactions Criticality [...] 10/16/2016 Active fluticasone (FLONASE) 50 MCG/ACT nasal sprayIndications:Clinical Research Spec 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 1 Inhaler 5 04/21/2018 Active Additional Information Patient taking differently:2 [place] Each NostrilPRN, Allergies, Informant: Patient, Reported on [...] mRNA, LNP-s, No Pre serve, 2-Dose Series (Caravan) 01/05/2021,05/07/2020,04/16/2020 COVID-19, LNP-s, No Preserve , Jasbir-sucrose, Ages 12+ (Caravan) 09/06/2021 Covid-19, Mrna, Lnp-s, Pf, B ivalent, 30 Mcg, IM, 12 yrs and above (Caravan) 01/31/2022 PPD 02/19/2017 Pneumococcal Conjugate Vacc, 13 [...] encounter Miscellaneous Notes * Telephone Encounter - Nichole Lizarraga MD - 06/15/2023 7:09 PM EDT Noted. Already seen by Dr. Pereira. * Telephone Encounter - Kajal Guevara LPN - 06/13/2023 8:14 AM EDT Patient's calling to request an appt for the patient. Scheduled for appt tomorrow at their request for this date. * Telephone Encounter - Belgica Arredondo LPN - 06/12/2023 2:47 PM EDT CHRISTIAN Villela calling from [facility]. They are able to do a [...] mind or sx's become worse Called Tika ([facility]) to find out if doing a [...] EDT HH Concerns Tika RN, Calling from: [facility] Report/Concerns of: cold symptoms Symptoms: see narrative [...] resolved. They haven't been exposed to Covid. HH nurses seeing patient 2x weekly. Tika will [...] 06/20/2023 1:45 PM EDT Office Visit Hematology/Oncology [facility] [address] [place] [phone] Aguilar Lizarraga MD [address] [place] [address] 06/24/2023 10:40 AM EDT Office Visit Nephrology, [facility] [address] [place] [address] Demetrius Sherman MD [address] [place] [address] 07/04/2023 10:30 AM EDT Imaging Radiology [facility] 2nd [facility] [place] [address] [place] [address] 07/25/2023 11:00 AM EDT Office Visit Hematology/Oncology [facility] [address] [place] [phone] Deyanira Lauren CRNP [address] [place] [address] 11/12/2023 9:20 AM EDT Office Visit General Internal Medicine [facility] [address] [place] [address] Nichole Lizarraga MD [address] [place] [address] Health Maintenance Due Date Last Done Comments [...] Additional history exists CKD HGB USE SMARTSET 03245 05/29/202405/29, 05/29/2023, 05/28/2023, Additional history exists CKD PHOS USE SMARTSET 59639 05/29/202405/19, 05/29/2023, 05/28/2023, Additional history exists DXA [...] and were consensually agreed upon. Care Teams Armature Coil Winder Relationship Specialty Start Date End Date Nichole Lizarraga MD 200 [place] [address] PCP - General Internal Medicine 03/10/12 documented as of this encounter
--- OUTSIDE RECORDS SUMMARY | 2023-06-30 22:47 | External Medical Summary ---
Author Name Unknown Address Unknown Organization K09:[facility] [address] [place] [address] Laboratory Report Ordering Provider Test Date Status KEN RAY 06/20/2023 14:27:46 Final Observation Date Value Abnormality Reference (Units ) Status BUN 06/20/2023 14:27:46 26 Above high normal 6-20 (mg/dL) Final Creatinine 06/20/2023 14:27:46 1.7 Above high normal 0.5-1.0 (mg/dL) Final Glomerular filtration rate/1.73 sq M.predicted [Volume Rate/Area] in Serum, Plasma or Blood by Creatinine-based formula (CKD-EPI) 06/20/2023 14:27:46 32 Below low normal >=60 (mL/min) Final eGFR is calculated based on the CKD-EPI 2020 equation Sodium 06/20/2023 14:27:46 133 Below low normal 135 -146 (mmol/L) Final Potassium 06/20/2023 14:27:46 4.0 3.5-5.1 (m mol/L) Final Cl 06/20/2023 14:27:46 102 98-107 (mm ol/L) Final CO2 06/20/2023 14:27:46 19 Below low normal 22- 32 (mmol/L) Final Anion gap 06/20/2023 14:27:46 12 7-15 (mmol /L) Final Glucose 06/20/2023 14:27:46 107 70-120 (mg /dL) Final Albumin 06/20/2023 14:27:46 2.3 Below low normal 3.8 -5.0 (g/dL) Final AST (Aspartate aminotransferase) 06/20/2023 14:27:46 10 10-35 (U/L) Fin al Alk Phos 06/20/2023 14:27:46 83 35-130 (U/ L) Final Bilirubin, Total 06/20/2023 14:27:46 0.4 <=1 .2 (mg/dL) Final Calcium 06/20/2023 14:27:46 8.5 8.4-10.2 ( mg/dL) Final Protein 06/20/2023 14:27:46 6.3 6.0-8.3 (g /dL) Final ALT (Alanine aminotransferase) 06/20/2023 14:27:46 <5 Below low normal 10-35 (U/L) Final Performing Location [facility] [address] [place] [address]
--- OUTSIDE RECORDS SUMMARY | 2023-06-30 22:47 | External Medical Summary ---
Author Name Unknown Address Unknown Organization [id number]:[facility] [place] - [address] [place] [address] Laboratory Report Ordering Provider Test Date Status KEN RAY 06/20/2023 14:27:46 Final Observation Date Value Abnormality Reference (Units ) Status Vitamin B12 06/20/2023 14:27:46 >2000 Above high normal 232-1245 (pg/mL) Final Performing Location [facility] - [address] [place] [address]
--- OUTSIDE RECORDS SUMMARY | 2023-06-30 22:47 | External Medical Summary | Summary of Care ---
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 1 Inhaler 5 04/21/2018 Active Additional Information Patient taking differently:2 [place] Each NostrilPRN, Allergies, Informant: Patient, Reported on [...] 15 mL 0 06/14/2023 Active Magic Swizzle (Leiatfosh-Xdbjntyu-O aalox) oral solutionIndications:P haryngoesophageal dysphagia,History of abdominal [...] mRNA, LNP-s, No Pre serve, 2-Dose Series (CPXi) 01/05/2021,05/07/2020,04/16/2020 COVID-19, LNP-s, No Preserve , Jasbir-sucrose, [...] Nephrology, [place] [address] [place] [address] Demetrius Sherman MD [address] [place] [address] 07/04/2023 10:30 AM EDT Imaging Radiology [facility] 2nd [facility], [address] [address] 07/25/2023 3:15 PM EDT Office Visit Hematology/Oncology [facility] [place] [address] [phone] Aguilar Lizarraga MD [address] [place] [place] [address] 11/12/2023 9:20 AM EDT Office Visit General Internal Medicine [facility] [place] [address] [place] [address] [address] Nichole Lizarraga MD [address] [facility] [place] [address] Health Maintenance Due Date Last Done Comments [...] Additional history exists CKD PHOS USE SMARTSET 76843 05/29/202405/19, 05/29/2023, 05/28/2023, Additional history exists CKD HGB USE SMARTSET 84248 06/19/202406/19, 06/20/2023, 05/30/2023, Additional history exists DXA [...] Name Priority Date/Time Associated Diagnosis Comments OUTSIDE LAB RESULTS 06/21/2023 documented in this encounter Results * OUTSIDE LAB RESULTS (06/21/2023) 06/21/2023 Aguilar Lizarraga MD LABORATORY documented in this encounter Advance Directives Latest [...] and were consensually agreed upon. Care Teams Dockmaster Relationship Specialty Start Date End Date Nichole Lizarraga MD 200 [place] [address] PCP - General Internal Medicine 03/10/12 documented as of this encounter
--- OUTSIDE RECORDS SUMMARY | 2023-06-30 22:47 | External Medical Summary | Summary of Care ---
Author Name Unknown Organization [facility] Address [address] [facility] [place] [address] Phone [phone] Care Team Providers Care Rag Cutting Machine Tender Name Role Phone Nichole Lizarraga MD Primary Care Provider + Reason for Visit * Reason Comments Outpatient Testing Encounter Details Date Type Department Care Team (Late st Contact Info) Description 06/20/2023 2:40 PM EDT Laboratory Laboratory [facility] [place] [address] [place] [phone] [place], [address] [place] [address] Arrived Allergies Active Allergy Reactions Criticality Noted Date Comments Penicillins Edema airway,Rash High 03/10/2012 Last dose age 14 Tolerated Ancef Pollen 01/17/2021 Ragweed 11/05/2022 documented as of this encounter (statuses as of 06/20/2023) Medications Medication Sig Dispensed Refills Start Date [...] 10/16/2016 Active fluticasone (FLONASE) 50 MCG/ACT nasal sprayIndications:Guard Rail Installer 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 1 Inhaler 5 04/21/2018 Active Additional Information Patient taking differently:2 [place] Each NostrilPRN, Allergies, Informant: Patient, Reported on [...] 15 mL 0 06/14/2023 Active Magic Swizzle (Haxuborhy-Kzsqtmwa-U aalox) oral solutionIndications:P haryngoesophageal dysphagia,History of abdominal surgery Swish and swallow 15 mL in the morning and 15 mL at noon and 15 mL before bedtime. 315 mL 0 06/14/2023 Active documented as of this encounter (statuses as of 06/20/2023) Active Problems Problem Noted Date Diagnosed Date [...] as of this encounter (statuses as of 06/20/2023) Resolved Problems Problem Noted Date Diagnosed Date Resolved Date Septic shock 05/26/2023 05/30/2023 Chronic kidney disease, stage 3b 04/30/2022 05/01/2023 Overview: Per CKD protocol Chronic kidney disease, stage 3a 05/29/2021 05/02/2022 Overview: Per CKD protocol Fever 09/13/2015 10/21/2017 Kidney stone on left side Inguinal hernia 10/21/2017 Overview: Surgical repair documented as of this encounter (statuses as of 06/20/2023) Immunizations Name Administration Dates Next Due COVID-19 mRNA, LNP-s, No Pre serve, 2-Dose Series (Nanosphere) 01/05/2021,05/07/2020,04/16/2020 COVID-19, LNP-s, No Preserve , Jasbir-sucrose, [...] 06/24/2023 10:40 AM EDT Office Visit Nephrology, [facility] [address] [place] [address] Demetrius Sherman MD [address] [place] [address] 07/04/2023 10:30 AM EDT Imaging Radiology [facility] 2nd [facility], [address] [place] [address] 07/25/2023 3:15 PM EDT Office Visit Hematology/Oncology [facility] [address] [phone] Aguilar Lizarraga MD [address] [place] [address] 11/12/2023 9:20 AM EDT Office Visit General Internal Medicine [facility] [address] [place] [address] Nichole Lizarraga MD [address] [facility] [place] [address] Health Maintenance Due Date Last Done Comments [...] Additional history exists CKD HGB USE SMARTSET 76563 05/29/202405/29, 05/29/2023, 05/28/2023, Additional history exists CKD PHOS USE SMARTSET 17098 05/29/202405/19, 05/29/2023, 05/28/2023, Additional history exists DXA [...] and were consensually agreed upon. Care Teams Rag Cutting Machine Tender Relationship Specialty Start Date End Date Nichole Lizarraga MD 200 [facility] [place] [address] PCP - General Internal Medicine 03/10/12 documented as of this encounter
--- OUTSIDE RECORDS SUMMARY | 2023-06-30 22:47 | External Medical Summary | Summary of Care ---
Author Name Unknown Organization [facility] Address [address] [facility] [place] [address] Phone [phone] Care Team Providers Care Billing Spec Name Role Phone Nichole Lizarraga MD Primary Care Provider + Reason for Visit * Evaluate & Treat - Unlimited Visits (Within 10 days (routine)) - Closed Specialty Diagnoses / Procedures Referred By Contgarry t Referred To Contact Hematology Diagnoses Chronic neutropenia (HCC) Large granular lymphocytosis Aguilar Lizarraga MD [address] [facility] [place] [address] Referral ID Status Reason Start Date Expiration Date V isits Requested Visits Authorized [id number] Closed Specialty Services Required 999 1 Encounter Details Date Type Department Care Team (Late st Contact Info) Description 06/21/2023 8:00 AM EDT Nurse Only Hematology/Oncology [facility] [place] [address] [facility] [place] [phone] [place], Nurse Hem Onc [facility] 200 [facility] [place] [address] Arrived Allergies Active Allergy Reactions Criticality Noted [...] 10/16/2016 Active fluticasone (FLONASE) 50 MCG/ACT nasal sprayIndications:Chief Informatics Officer 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 1 Inhaler 5 04/21/2018 Active Additional Information Patient taking differently:2 [place] Each NostrilPRN, Allergies, Informant: Patient, Reported on [...] 15 mL 0 06/14/2023 Active Magic Swizzle (Cokzfuqez-Tgfqqmin-U aalox) oral solutionIndications:P haryngoesophageal dysphagia,History of abdominal [...] mRNA, LNP-s, No Pre serve, 2-Dose Series ([place]) 01/05/2021,05/07/2020,04/16/2020 COVID-19, LNP-s, No Preserve , Jasbir-sucrose, Ages 12+ (Pfizer) 09/06/2021 Covid-19, Mrna, Lnp-s, Pf, B ivalent, 30 Mcg, IM, 12 yrs and above ([place]) 01/31/2022 PPD 02/19/2017 Pneumococcal Conjugate Vacc, 13 [...] No 05/26/2023 documented as of this encounter Nursing Notes * Dee Brush RN - 06/21/2023 9:[address] Lizarraga consented patient for blood transfusion. documented in this encounter Plan of Treatment Upcoming Encounters Date Type Department Care Team (Late st Contact Info) Description 06/24/2023 10:40 AM EDT Office Visit Nephrology, [place] [address] [place] [address] Demetrius Sherman MD [address] [place] [address] 07/04/2023 10:30 AM EDT Imaging Radiology [facility] 2nd [facility] [address] [place] [address] 07/25/2023 3:15 PM EDT Office Visit Hematology/Oncology [facility] [address] [place] [address] Aguilar Lizarraga MD 200 [facility] [place] [address] 11/12/2023 9:20 AM EDT Office Visit General Internal Medicine [facility] [address] [place] [address] Nichole Lizarraga MD 200 [facility] [place] [address] Health Maintenance Due Date Last Done Comments [...] Additional history exists CKD PHOS USE SMARTSET 29826 05/29/202405/19, 05/29/2023, 05/28/2023, Additional history exists CKD HGB USE SMARTSET 77337 06/19/202406/19, 06/20/2023, 05/30/2023, Additional history exists DXA [...] and were consensually agreed upon. Care Teams Billing Spec Relationship Specialty Start Date End Date Nichole Lizarraga MD 200 [facility] [place] [address] PCP - General Internal Medicine 03/10/12 documented as of this encounter
--- OUTSIDE RECORDS SUMMARY | 2023-06-30 22:47 | External Medical Summary ---
Author Name Unknown Address Unknown Organization K01:[facility] [place] - [address] [place] [address] Laboratory Report Ordering Provider Test Date Status KEN RAY 06/20/2023 14:27:46 Final Observation Date Value Abnormality Reference (Units ) Status Iron 06/20/2023 14:27:46 7 Below low normal 33-151 (ug/dL) Final Iron-binding capacity 06/20/2023 14:27:46 122 Below low normal 250-425 (ug/dL) Final Transferrin Sat % 06/20/2023 14:27:46 6 Below low normal 15-55 (%) Final Performing Location [facility] [place] - [address] [place] [address]
--- OUTSIDE RECORDS SUMMARY | 2023-06-30 22:47 | External Medical Summary | Summary of Care ---
Author Name Unknown Organization [facility] Address [address] [facility] [facility] [place] [address] Phone [phone] Care Team Providers Care Garnishment Specialist Name Role Phone Nichole Lizarraga MD Primary Care Provider + Reason for Visit * Reason Comments Follow Up Post surgery Encounter Details Date Type Department Care Team (Late st Contact Info) Description 06/20/2023 1:45 PM EDT Office Visit Hematology/Oncology [facility] [address] 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 1 Inhaler 5 04/21/2018 Active Additional Information Patient taking differently:2 [place] Each NostrilPRN, Allergies, Informant: Patient, Reported on [...] 15 mL 0 06/14/2023 Active Magic Swizzle (Rrtlhvukq-Mwbnhoqi-U aalox) oral solutionIndications:P haryngoesophageal dysphagia,History of abdominal [...] mRNA, LNP-s, No Pre serve, 2-Dose Series ([employer]) 01/05/2021,05/07/2020,04/16/2020 COVID-19, LNP-s, No Preserve , Jasbir-sucrose, [...] Sign Reading Time Taken Comments Blood Pressure 107/54 06/20/2023 1:39 PM EDT Pulse 90 06/20/2023 1:39 PM EDT Temperature 36.1 C (96.9 F) 06/20/2023 1:39 PM ED T Respiratory Rate 16 06/20/2023 1:39 PM EDT Oxygen Saturation 97% 06/20/2023 1:39 PM EDT Inhaled Oxygen Concentration - - Weight 54.6 kg (120 lb 6.4 oz) 06/20/2023 1:39 P M EDT Height - - Body Mass Index 19.73 06/14/2023 11:55 AM EDT documented in this [...] as of this encounter Progress Notes * Aguilar Lizarraga MD - 06/20/2023 1:45 PM EDT Antony: Linsey Estrella :1950 73-year-old female, DIAGNOSIS: Large granular lymphocytosis, severe neutropenia. She has chronic neutropenia since 2012 T-cell gene rearrangement positive (gamma). No anemia. No thrombocytopenia. 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 -1 lymph node negative for metastatic disease -pathological T2 N0. Bladder cancer Initially diagnosed in December of 2020. -urothelial CIS, S/P BCG in 2021. - follow-up biopsy from the bladder --> negative for malignancy ( May 2021) Bladder Washing --> negative for high-grade urothelial carcinoma (10/2021). Bladder Washing --> negative for high-grade urothelial carcinoma (August 2022) TURBT of the anterior bladder tumor on 02/04/2023: -high-grade invasive urothelial carcinoma with sarcomatoid features and focal squamous differentiation. -Muscularis propria present and is involved. - Lymphovascular invasion identified. She was not a candidate for neoadjuvant chemotherapy because of significantly low ANC (related underlying LGL leukemia). 05/08/2023: S/P hysterectomy, bilateral salpingoophorectomy with cystectomy, ileal conduit by Dr. Saul Vargas Final pathology: -high-grade urothelial carcinoma with sarcomatoid differentiation, 2.5 cm primary tumor, invading the perivesical adipose tissue, lymphovascular invasion noted, - Anterior vaginal wall, cervix, endomyometrium, serosa, and adnexa all negative for malignancy. - 5 lymph nodes from the right pelvic region and 5 lymph node from the left pelvic region--> negative for malignancy -overall pathological T3b N0 CURRENT TREATMENT: As of 01/23/2022, she is on Neupogen at 300 microgram 4 days a week ( Saturday, Saturday, Saturday). -will continue G-CSF 4 days a week for now. Regarding bladder cancer, Because of significant lymphocytopenia and neutropenia, (related underlying LGL leukemia), I do notthink she will derive any meaningful benefit of adjuvant immunotherapy. PREVIOUS TREATMENT: She had received briefly Neupogen treatment. - Received Neupogen at 300 mcg initially twice a week with some slight improvement of the WBC count, change to once a week somewhere in December,. No significant improvement of the white blood cell count noted, in August, decided to discontinue Neupogen therapy, - She was seen by pyrometer temperature regulator Dr. Viky Sequeira at [facility], I reviewed consult note, suggested to start methotrexate and prednisone. Started on (04/29/2018) - Methotrexate 10 mg once-a-week - Prednisone 60 mg per day. 06/25/2018: -she is on prednisone at 20 mg per day, advised to cut down to 10 mg per day. - increase the dose of methotrexate to 15 mg once a week. As of 08/14/2018: Prednisone 10 mg once a day Methotrexate 15 mg once a week Prophylactic antibiotic with Levaquin and antiviral acyclovir. 11/14/2018 --> decided discontinue methotrexate, she will also discontinue prednisone in the next1 week. She received Neupogen 300 microgram twice a week between 11/25/2018-01/16/2019, no improvement notedin the neutrophil count at all. When she received Neupogen 4 days in a week or 5 days in a week, ANC improves. 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 -Antineutrophil antibody --> negative. - peripheral blood for flow cytometry (11/19/2017)--> T-cell receptor gamma gene rearrangement--> positive. -WBC 3900, H&H of 13/40.5, MCV 83.9, Platelet count of 346,000, ANC 0, absolute lymphocyte count 3700 (01/06/2018) -LDH--> 134 (01/06/2018) Bone marrow aspiration and biopsy (01/06/2018) -large granular lymphocytosis, severe neutropenia noted -T-cell receptor gene rearrangement (gamma)--> positive. -MDS FISH--> negative -Normal female chromosome noted. OTHER IMPORTANT HISTORY: -CT scan of the abdomen pelvis done on 11/29/2020: 1. There is an obstructive mass in the mid left ureter measuring 1.6 x 1.6 x 3.9 cm, favoring an urothelial malignancy. 2. Moderate to severe left hydronephrosis and left hydroureter upstream to the mass. Delayed enhancement of the left kidney with no excretion of contrast in the left renal collecting system likely secondary to obstruction. 3. No renal calculi. 4. Multiple bilateral renal cysts. 5. Inadequate evaluation of the bladder secondary to incomplete distension. Diffuse bladder wall thickening, greater on the left. Consider further evaluation with cystoscopy. 6. 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 -1 lymph node negative for metastatic disease -pathological T2 N0. Based on pathological T2 N0, no adjuvant chemotherapy INTERVAL HISTORY: She has come the clinic for the follow-up, accompanied by her in the office. I reviewed hermedical records from the recent surgery for the bladder cancer as well as she had a sepsis following that where she required another admission, now gradually recovering. Recently she had COVID positive on 06/13/2023. She denies any increasing coughing, sore throat is improving, has some intermittent fever, she is injecting G-CSF 4 days a week, Saturday, Saturday. Overall feeling weak and tired, no nausea or vomiting, no diarrhea at this time, no blood in the urine, no bleeding from any sites. Ambulating slowly by herself. No fall. Past Medical History: Diagnosis Date Inguinal hernia 02/18/1999 Surgical repair Kidney stone on left side 02/19/1996 Leukemia (HCC) Large granular lymphocytic leukemia Neutropenia (HCC) PONV (postoperative nausea and vomiting) Past Surgical History: Procedure Laterality Date CYSTOSCOPY/TREAT MINOR LESION(S) N/A 01/09/2021 CYSTOURETHROSCOPY WITH FULGURATION MINOR BLADDER TUMOR performed by Chris Royal MD at [facility] CYSTOSCOPY/TREAT MINOR LESION(S) N/A 06/05/2021 CYSTOURETHROSCOPY WITH FULGURATION MINOR BLADDER TUMOR performed by Chris Royal MD at [facility] CYSTOSCOPY/TREAT SML BLADDER TUMOR N/A 02/04/2023 CYSTOURETHROSCOPY WITH FULGURATION SMALL BLADDER TUMOR [facility] PROCEDURE NEC INCISION OF [place], PLANNED Left 02/04/2017 TRACHEOSTOMY PLANNED performed by Nick Singh DO at [facility] INFORMATION 02/04/2017 never had a trach INFORMATION 1989 kidney stone removal LAPARO REMOVE K/URETER Left 02/01/2021 LAPAROSCOPIC NEPHRECTOMY TOTAL URETERECTOMY performed by Chris Royal MD at [facility] LARYNGOSCOPY, VOCAL CORD EXCISION/STRIPPING Left 02/04/2017 LARYNGOSCOPY DIRECT STRIPPING VOCAL CORD WITH MICROSCOPE performed by Nick Singh DO at [facility] RADICAL HYSTERECTOMY N/A 05/08/2023 RADICAL ABDOMINAL HYSTERECTOMY performed by Saul Vargas MD at [facility] REMOVE BLADDER,REVISE URINARY TRACT N/A 05/08/2023 CYSTECTOMY COMPLETE WITH URETEROILEAL CONDUIT WITH BILATERAL PELVIC LYMPHADENECTOMY performed by Saul Vargas MD at [facility] INITIAL INGUINAL HERNIA REDUCIBLE AGE 5 OR MORE 02/18/1999 Current Outpatient Medications Medication Sig Dispense Refill PROBIOTIC DAILY PO CAPS Take 1 Capsule by mouth in the morning. Calcium Carbonate-Vitamin D 600-400 MG-UNIT Oral Tablet Chewable Take 1 Tablet by mouth in the morning. loratadine (CLARITIN) 10 MG Tablet Take 1 [...] greater than 38*C (100.5*F). 30 Tablet 0 Oxymetazoline HCl 0.05 % Nasal Solution Administer 2 Sprays into each nostril 2 times a day as needed for Congestion (for congestion). Do not use for more than three days. 15 mL 0 Magic Swizzle (Crchtnheg-Lkrlujqw-Uqljcr) oral solution Swish and swallow 15 mL in the morning and 15 mL at noon and 15 mL before bedtime. 315 mL 0 No current facility-administered medications for this visit. Family History Problem Relation Age of Onset Heart Disorder Mother Dyslipidemia Hypertension Mother Liver cancer Father Pancreatic cancer Father Diabetes Grandmother (Maternal) Stroke Grandmother (Maternal) Heart attack Grandfather (Maternal) Stroke Grandmother (Paternal) Cancer Grandfather (Paternal) 90 Unknown Diabetes Aunt (Unspecified) Diabetes Uncle (Unspecified) Breast Cancer No significant family history Social History Socioeconomic History Marital status: Spouse name: Not on file Number of children: Not on file Years of education: Not on file Highest education level: Not on file Occupational History Not on file Social Needs Financial resource strain: Not on file Food insecurity: Worry: Never true Inability: Never true Transportation needs: Medical: Not on file Non-medical: Not on file Tobacco Use Smoking status: Never Smoker Smokeless tobacco: Never Used Substance and Sexual Activity Alcohol use: Yes Alcohol/week: 4.2 standard drinks Types: 5 5 oz of wine per week Comment: occ Drug use: No Sexual activity: Yes Partners: Male Lifestyle Physical activity: Days per week: Not on file Minutes per session: Not on file Stress: Not on file Relationships Social connections: Talks on phone: Not on file Gets together: Not on file Attends holiness service: Not on file Active member of club or organization: Not on file Attends meetings of clubs or organizations: Not on file Relationship status: Not on file Intimate partner violence: Fear of current or ex partner: Not on file Emotionally abused: Not on file Physically abused: Not on file Forced sexual activity: Not on file Other Topics Concern Not on file Social History Narrative Not on file On exam: BP 107/54 (BP Site: Left Arm, BP Position: Sitting, BP Cuff Size: Regular) | Pulse 90 | Temp 36.1 C (96.9 F) (Tympanic) | Resp 16 | Wt 54.6 kg (120 lb 6.4 oz) | SpO2 97% | BMI 19.73 kg/m | BSA 1.59 m Constitutional: Patient is alert, cooperative and oriented x 3. Thin built woman, Patient is in no acute distress. HEENT: No icterus, pallor, Throat and pharynx normal. Sinuses are non-tender. Neck: Supple and without lymphadenopathy or masses. No JVD. No Palpable supraclavicular lymph nodes. Lungs: Clear to auscultation. Bilateral symmetric air entry. No wheezing or rhonchi. Cardiovascular: Normal heart sounds, no murmurs.Regular rate and rhythm. Abdomen: soft, nontender, no hepatomegaly, no splenomegaly. Bowel sounds are normal. Neurological: No gross focal neurological deficit; walks with a normal gait. Extremities: No finger clubbing, No cyanosis. No leg edema. Skin:: No skin rash. SPINE: No spinal or paraspinal tenderness. LABS: Blood workup done on 06/20/2023: -BUN/Creat: 26/1.7, Calcium 8.5 -albumin 2.3 -WBC 3200, H&H of 6.6/21, MCV 82, Platelet count [id number]. CT scan of the abdomen pelvis (05/22/2021 without IV contrast. - . Status post left nephrectomy. 2. Bladder wall is mildly thickened with perivesical stranding raising the possibility of cystitis and clinical correlation is advised. No definitive focal bladder lesion is identified. There is a 3-4 mm calcification appearing in the superior aspect of the bladder wall since previous exam. CT urogram few (02/05/2022) -Left nephro ureterectomy changes are stable. Punctate nonobstructing right renal lower pole calculi. No right hydroureteronephrosis. Punctate density equivocally within the distal right ureter versus volume averaging, too small to accurately characterize. Attention on subsequent imaging is suggested. Decreasing size of right renal 1 cortical cyst. Parapelvic cysts and stable additional too smallto characterize hypodense renal lesions, likely cysts. Diffuse bladder wall thickening with mucosal hyperenhancement and perivesical fatty stranding consistent with nonspecific cystitis. Focal enhancement at the anterior hepatic dome, similar to the prior exam. CT scan of the abdomen pelvis on 01/16/2023: 1. Increase in size of the lesion/process at the bladder dome since the prior study. Differential can include urothelial or urachal malignancy or an inflammatory/infectious process such as infected diverticulum. Gas bubbles in the urinary bladder, either due to recent catheterization, cystoscopy, or infection. 2. Left nephro ureterectomy. No evidence of mass lesion of the right kidney, intrarenal collecting system right kidney, or of the upper/middle right ureter. Distal right ureter is not opacified with contrast but no obvious enhancing lesion. No ureteral obstruction. CT scan of the abdomen and pelvis done on 01/16/2023 ( with IV contrast): -1.6 x 1.6 cm bladder dome lesion - Left nephro ureterectomy -No lymphadenopathy. CT chest without contrast on 02/26/2023: -no suspicious lung nodules or lymphadenopathy noted. CT abdomen and pelvis ( 05/25/2023) 1. Status post cystectomy with a right lower quadrant ileal conduit. Severe right hydroureteronephrosis despite the presence of a ureteral stent. 2. There is a rim enhancing fluid collection in the right hemipelvis concerning for abscess which measures up to 2.5 cm (image 69 series 2). 3. Additional small pockets of fluid and air do not appear loculated and are most likely postsurgical in nature. ASSESSMENT AND PLAN: 72-year-old the female, who has chronic neutropenia since 2012, received briefly Neupogen treatmentwith some partial response but It was discontinued after that, earlier she did not have any infectious complications but lately noticed some few infections complications, recent the blood workup and bone marrow findings shows evidence of large granular lymphocytosis with T-cell gene rearrangement po sitive (gamma). She has persistent neutropenia, ANC is around 0, no increasing lymphocytosis noted, mild anemia (Hemoglobin level 11.9 g/dL), no thrombocytopenia, no joint pain or skin rash. She was seen by pyrometer temperature regulator Dr. Viky Sequeira at [facility] in February 2018, additional MDS workup once again showed no abnormal mutations (NeoTYPE Analysis), and suggested prednisoneand methotrexate for LGL leukemia with neutropenia in her case. Started on methotrexate (10 mg every weekly) and prednisone combination in the 2nd week of April 2018. She took It for about 6 months but no improvement in the neutrophil count noted. Then she received about 7 weeks of Neupogen (twice a week in 11/2018-12/2018, no improvement noted in the neutrophil count at all. Neutrophil count has remained around 0. Now she is receiving Neupogen 4 days a week, improvement of the ANC noted. Will continue Neupogen 4 days a week. 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 Regarding transitional cell carcinoma of the bladder, she completed 6 treatment of intravesical BCG. She had additional 3 treatments with intravesical BCG afterwards. Last of November 2021. She had biopsy from the bladder in May of 2021 which was negative Subsequent lately bladder washing was negative on 2 occasions, last one was in August of [address] scan showed 1.6 cm bladder dome lesion, she would biopsy from that which confirmed high-grade urothelial carcinoma with muscle invasion. We could not proceed neoadjuvant cisplatin/gemcitabine chemotherapy because of significantly low ANC in spite of giving G-CSF support. She then underwent hysterectomy, bilateral salpingoophorectomy with cystectomy, ileal conduit by Dr. Saul Vargas Final pathology: -high-grade urothelial carcinoma with sarcomatoid differentiation, 2.5 cm primary tumor, invading the perivesical adipose tissue, lymphovascular invasion noted, - overall pathological T3b N0 She had urosepsis subsequently, she was admitted at [facility], reviewed the record, reviewed the imaging studies, no evidence of recurrent disease noted anywhere else. She had COVID infection recently about a week back, gradual improvement of pulmonary symptoms notedbut overall she has not doing well, reviewed blood workup done today, worsening anemia noted, worsening kidney function test noted I would like to get B12, folic acid Ferritin, iron profile, Will have to transfuse 1 unit PRBC with Lasix intravenously after the completion of the blood transfusion Because of significant lymphocytopenia, CV not derive any meaningful benefit of adjuvant immunotherapy with Nivolumab (Opdivo). Will repeat blood workup in about 1 week I am planning to see her back in about [address] Aguilar Lizarraga Hem/Onc (This note was completed using the dictation program Fluency Direct. As such, there may be misspellings word substitutions, or other variations that should not change the essence of the clinical content of this encounter note. If there is need for further clarification, please direct questions to the provider listed above.) documented in this encounter Nursing Notes * Ambika Wright, MED ASSIST - 06/20/2023 1:47 PM EDT Patient identifed by name and birthdate Do you have any concerns about pain management for today's visit? Yes. Patient instructed to discuss pain concerns with provider during the visit today Living Will or Advance Directive for Health Care as noted on the problem list. [facility] is a way you can talk to your provider on line through e-mail. Would you like to sign up? I can activate it for you? ALREADY ACTIVE Filed Vitals: 06/20/23 1339 BP: 107/54 Pulse: 90 Resp: 16 Temp: 36.1 C (96.9 F) TempSrc: Tympanic SpO2: 97% Weight: 54.6 kg (120 lb 6.4 oz) Patient was instructed to not get up on the exam table/exam chair until directed and assisted by their provider; patient is to remain seated in the chair/ wheelchair/ exam table/ exam chair for fall prevention and safety reasons. Patient is aware to have assistance to step down off exam table/exam chair with personnel. Patient voiced full comprehension of instructions. documented in this encounter Miscellaneous Notes * Result Encounter Note - Aguilar Lizarraga MD - 06/20/2023 3:46 PM EDT Blood workup done on 06/20/2023: -WBC 3200, H&H of 6.6/21, Platelet count of 745542 -ANC 1200, Absolute lymphocyte count 1400. -BUN/Creat: 26/1.7, Normal liver function tests other than albumin level of 2.3. Overall worsening anemia noted, I would like to transfuse 1 unit of PRBC at [facility]. She can come to the clinic for the consent tomorrow morning. No significant neutropenia She will continue G-CSF 4 days a week as we planned. documented in this encounter Plan of Treatment Upcoming Encounters Date Type Department Care Team (Late st Contact Info) Description 06/21/2023 8:00 AM EDT Nurse Only Hematology/Oncology [place] [facility] [address] [facility] [place] [phone] Sandy, Nurse Hem Onc [place] [address] [place] [id number] 06/24/2023 10:40 AM EDT Office Visit Nephrology, Jim Delgado [address] [place] [address] [id number] Demetrius Sherman MD [address] [place] [address] 07/04/2023 10:30 AM EDT Imaging Radiology [facility] [address] [facility] [place] [address] [facility] [place] [address] 07/25/2023 3:15 PM EDT Office Visit Hematology/Oncology [facility] [address] [place] [address] [phone] Aguilar Lizarraga MD [address] [place] [address] 11/12/2023 9:20 AM EDT Office Visit General Internal Medicine [facility] [address] [facility] [place], [place] [address] Nichole Lizarraga MD [address] [facility] [facility] [place], [place] [address] Pending Results Name Type Priority Associated Diagnoses Date /Time VITAMIN B12 Lab Routine Neutropenia, unspecified type (HCC) Large granular lymphocytic leukemia (HCC) History of bladder cancer Anemia in stage 4 chronic kidney disease (HCC) 06/20/2023 2:27 PM EDT FOLIC ACID Lab Routine Neutropenia, unspecified type (HCC) Large granular lymphocytic leukemia (HCC) History of bladder cancer Anemia in stage 4 chronic kidney disease (HCC) 06/20/2023 2:27 PM EDT IRON SCREEN, INCLUDING TIBC Lab Routine Neutropenia, unspecified type (HCC) Large granular lymphocytic leukemia (HCC) History of bladder cancer Anemia in stage 4 chronic kidney disease (HCC) 06/20/2023 2:27 PM EDT RETICULOCYTE PANEL Lab Routine Neutropenia, unspecified type (HCC) Large granular lymphocytic leukemia (HCC) History of bladder cancer Anemia in stage 4 chronic kidney disease (HCC) 06/20/2023 2:27 PM EDT FERRITIN Lab Routine Neutropenia, unspecified type (HCC) Large granular lymphocytic leukemia (HCC) History of bladder cancer Anemia in stage 4 chronic kidney disease (HCC) 06/20/2023 2:27 PM EDT Scheduled Orders Name Type Priority Associated Diagnoses Orde r Schedule VITAMIN B12 Lab Routine Neutropenia, unspecified type (HCC) Large granular lymphocytic leukemia (HCC) History of bladder cancer Anemia in stage 4 chronic kidney disease (HCC) Expected: 06/20/2023, Expires: 06/19/2024 FOLIC ACID Lab Routine Neutropenia, unspecified type (HCC) Large granular lymphocytic leukemia (HCC) History of bladder cancer Anemia in stage 4 chronic kidney disease (HCC) Expected: 06/20/2023, Expires: 06/19/2024 IRON SCREEN, INCLUDING TIBC Lab Routine Neutropenia, unspecified type (HCC) Large granular lymphocytic leukemia (HCC) History of bladder cancer Anemia in stage 4 chronic kidney disease (HCC) Expected: 06/20/2023, Expires: 06/19/2024 RETICULOCYTE PANEL Lab Routine Neutropenia, unspecified type (HCC) Large granular lymphocytic leukemia (HCC) History of bladder cancer Anemia in stage 4 chronic kidney disease (HCC) Expected: 06/20/2023, Expires: 06/19/2024 FERRITIN Lab Routine Neutropenia, unspecified type (HCC) Large granular lymphocytic leukemia (HCC) History of bladder cancer Anemia in stage 4 chronic kidney disease (HCC) Expected: 06/20/2023, Expires: 06/19/2024 Health Maintenance Due Date Last Done Comments [...] Additional history exists CKD PHOS USE SMARTSET 43946 05/29/202405/19, 05/29/2023, 05/28/2023, Additional history exists CKD HGB USE SMARTSET 83913 06/19/202406/19, 06/20/2023, 05/30/2023, Additional history exists DXA [...] Procedure Name Priority Date/Time Associated Diagnosis Comments DIFFERENTIAL, AUTOMATED STAT 06/20/2023 2:27 PM EDT Neutropenia, unspecified type (HCC) Large granular lymphocytic leukemia (HCC) History of bladder cancer COMPREHENSIVE METABOLIC PANEL STAT 06/20/2023 2:27 PM EDT Neutropenia, unspecified type (HCC) Large granular lymphocytic leukemia (HCC) History of bladder cancer CBC STAT 06/20/2023 2:27 PM EDT Neutropenia, unspecified type (HCC) Large granular lymphocytic leukemia (HCC) History of bladder cancer CBC STAT 06/20/2023 2:27 PM EDT Neutropenia, unspecified type (HCC) Large granular lymphocytic leukemia (HCC) History of bladder cancer DIFFERENTIAL, TECHNOLOGIST REVIEW Routine 06/20/2023 2:27 PM EDT Neutropenia, unspecified type (HCC) Large granular lymphocytic leukemia (HCC) History of bladder cancer documented in this encounter Results * (ABNORMAL) DIFFERENTIAL, TECHNOLOGIST REVIEW (06/20/2023 2:27 PM EDT) nRBCs 06/20/2023 2:57 PM EDT [facility] 56-02 Acanthocytes Moderate(A ) None Seen 06/20/2023 2:57 PM EDT LAB[facility]ATORY [facility] 56-02 Polychromasia Moderate(A ) None Seen 06/20/2023 2:57 PM EDT [facility] 56-02 Smudge Cells Present(A) None Seen 06/20/2023 2:57 PM EDT [facility] Blood Venous blood specimen / Unknown Venipuncture / Unknown 06/20/2023 2:27 PM EDT 06/20/2023 2:27 PM EDT Aguilar Lizarraga MD LAB BLOOD ORDERABLES [facility] [address] [place] [address] * (ABNORMAL) DIFFERENTIAL, AUTOMATED (06/20/2023 2:27 PM EDT) WBC 3.28(L) 4.00 - 10.80 K/uL 06/20/2023 2:57 PM EDT [facility] Neutrophils % 39.4(L) 40.0 - 75.0 % 06/20/2023 2:57 PM EDT [facility] Lymphocytes % 43.3(H) 18.0 - 42.0 % 06/20/2023 2:57 PM EDT [facility] Monocytes % 15.5(H) 1.0 - 11.0 % 06/20/2023 2:57 PM EDT [facility] Eosinophils % 1.2 0.0 - 6.0 % 06/20/2023 2:57 PM EDT [facility] 56 Basophils % 0.6 0.0 - 2.0 % 06/20/2023 2:57 PM EDT [facility] Absolute Neutrophils 1.29(L) 1.80 - 7.70 K/uL 06/20/2023 2:57 PM EDT [facility] 56 Absolute Lymphocytes 1.42 1.00 - 4.80 K/ul 06/20/2023 2:57 PM EDT [facility] 56 Absolute Monocytes 0.51 0.00 - 1.10 K/uL 06/20/2023 2:57 PM EDT [facility] 56 Absolute Eosinophils 0.04 0.00 - 0.70 K/uL 06/20/2023 2:57 PM EDT [facility] 5602 Absolute Basophils 0.02 0.00 - 0.20 K/uL 06/20/2023 2:57 PM EDT [facility] Blood Venous blood specimen / Unknown Venipuncture / Unknown 06/20/2023 2:27 PM EDT 06/20/2023 2:27 PM EDT Aguilar Lizarraga MD LAB BLOOD ORDERABLES [facility] [address] [place] [address] * (ABNORMAL) CBC (06/20/2023 2:27 PM EDT) WBC 3.28(L) 4.00 - 10.80 K/uL 06/20/2023 2:57 PM EDT [facility] RBC 2.56 3.85 - 5.15 M/uL 06/20/2023 2:57 PM EDT [facility] HGB 6.6(L) 12.0 - 15.3 g/dL 06/20/2023 2:57 PM EDT [facility] HCT 21.1(L) 36.0 - 45.2 % 06/20/2023 2:57 PM EDT [facility] MCV 82.4 81.5 - 97.5 fL 06/20/2023 2:57 PM EDT [facility] MCH 25.8 27.0 - 34.0 pg 06/20/2023 2:57 PM EDT [facility] MCHC 31.3 32.0 - 36.0 g/dL 06/20/2023 2:57 PM EDT [facility] RDW 19.7 11.5 - 15.5 % 06/20/2023 2:57 PM EDT [facility] PLT 418(H) 140 - 400 K/uL 06/20/2023 2:57 PM EDT [facility] MPV 10.1 6.6 - 11.1 fL 06/20/2023 2:57 PM EDT [facility] Blood Venous blood specimen / Unknown Venipuncture / Unknown 06/20/2023 2:27 PM EDT 06/20/2023 2:27 PM EDT Aguilar Lizarraga MD LAB BLOOD ORDERABLES [facility] [address] [place] [address] * (ABNORMAL) COMPREHENSIVE METABOLIC PANEL (06/20/2023 2:27 PM EDT) BUN 26(H) 6 - 20 mg/dL 06/20/2023 2:58 PM EDT [facility] Creatinine 1.7(H) 0.5 - 1.0 mg/dL 06/20/2023 2:58 PM EDT [facility] Estimated Glomerular Filtration Rate 32(L) >=60 mL/min 06/20/2023 2:58 PM EDT [facility] Comment:eGFR is calculated b ased on the CKD-EPI 2020 equation Sodium 133(L) 135 - 146 mmol/L 06/20/2023 2:58 PM EDT [facility] Potassium 4.0 3.5 - 5.1 mmol/L 06/20/2023 2:58 PM EDT [facility] Chloride 102 98 - 107 mmol/L 06/20/2023 2:58 PM EDT [facility] CO2 19(L) 22 - 32 mmol/L 06/20/2023 2:58 PM EDT [facility] Anion Gap 12 7 - 15 mmol/L 06/20/2023 2:58 PM EDT [facility] Glucose 107 70 - 120 mg/dL 06/20/2023 2:58 PM EDT [facility] Albumin 2.3(L) 3.8 - 5.0 g/dL 06/20/2023 2:58 PM EDT [facility] AST 10 10 - 35 U/L 06/20/2023 2:58 PM EDT [facility] Alkaline Phosphatase 83 35 - 130 U/L 06/20/2023 2:58 PM EDT [facility] Bilirubin, Total 0.4 <=1.2 mg/dL 06/20/2023 2:58 PM EDT [facility] 56 Calcium 8.5 8.4 - 10.2 mg/dL 06/20/2023 2:58 PM EDT [facility] 56 Protein 6.3 6.0 - 8.3 g/dL 06/20/2023 2:58 PM EDT [facility] 56 ALT <5(L) 10 - 35 U/L 06/20/2023 2:58 PM EDT [facility] Blood Venous blood specimen / Unknown Venipuncture / Unknown 06/20/2023 2:27 PM EDT 06/20/2023 2:27 PM EDT Aguilar Lizarraga MD LAB BLOOD ORDERABLES [facility] [address] [place] [address] documented in this encounter Visit Diagnoses Diagnosis Neutropenia, unspecified type (HCC)- 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 Care Teams Garnishment Specialist Relationship Specialty Start Date End Date Nichole Lizarraga MD [address] [place] [address], [place] [address] PCP - General Internal Medicine 03/10/12 documented as of this encounter"
--- OUTSIDE RECORDS SUMMARY | 2023-06-30 22:47 | External Medical Summary ---
Author Name Unknown Address Unknown Organization K09:[facility] [place] [address] Laboratory Report Ordering Provider Test Date Status KEN RAY 06/20/2023 14:27:46 Final Observation Date Value Abnormality Reference (Units ) Status Nucleated erythrocytes/100 leukocytes [Ratio] in Blood by Automated count 06/20/2023 14:27:46 Final Acanthocytes [Presence] in Blood by Light microscopy 06/20/2023 14:27:46 Moderate Abnormal None Seen Final Polychromasia [Presence] in Blood by Light microscopy 06/20/2023 14:27:46 Moderate Abnormal None Seen Final Smudge cells [Presence] in Blood by Light microscopy 06/20/2023 14:27:46 Present Abnormal None Seen Final Performing Location [facility] [place] [address]
--- OUTSIDE RECORDS SUMMARY | 2023-06-30 22:47 | External Medical Summary | Summary of Care ---
Author Name Unknown Organization [facility] Address [address] [place] [address] Phone [phone] Care Team Providers Care Flexible Machining System Machinist Name Role Phone Nichole Lizarraga MD Primary Care Provider + Encounter Details Date Type Department Care Team (Late st Contact Info) Description 06/13/2023 Result Scan Unspecified Department Lucia Pereira MD [address] [place] [address] <No scans attached> Allergies Active Allergy Reactions [...] 10/16/2016 Active fluticasone (FLONASE) 50 MCG/ACT nasal sprayIndications:Ip Architect 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 1 Inhaler 5 04/21/2018 Active Additional Information Patient taking differently:2 [place] Each NostrilPRN, Allergies, Informant: Patient, Reported on [...] mRNA, LNP-s, No Pre serve, 2-Dose Series ([employer]) 01/05/2021,05/07/2020,04/16/2020 COVID-19, LNP-s, No Preserve , Jasbir-sucrose, Ages 12+ (Pfizer) 09/06/2021 Covid-19, Mrna, Lnp-s, Pf, B ivalent, 30 Mcg, IM, 12 yrs and above ([employer]) 01/31/2022 PPD 02/19/2017 Pneumococcal Conjugate Vacc, 13 [...] 06/20/2023 1:45 PM EDT Office Visit Hematology/Oncology [facility] [address] [phone] Aguilar [facility]aga [facility] [place] [address] 06/24/2023 10:40 AM EDT Office Visit Nephrology, [facility] [address] [place] [address] Demetrius Sherman MD [facility] [place] [address] 07/04/2023 10:30 AM EDT Imaging Radiology [facility] 2nd [facility] [address] [facility] [place] [address] 07/25/2023 11:00 AM EDT Office Visit Hematology/Oncology [facility] [place] [address] [phone] Deyanira Lauren CRNP 400 [facility] [place] [address] 11/12/2023 9:20 AM EDT Office Visit General Internal Medicine [facility] [address] [place] [address] Nichole Lizarraga MD [address] [facility] [place] [address] Health Maintenance Due Date Last Done Comments [...] Additional history exists CKD HGB USE SMARTSET 47334 05/29/202405/29, 05/29/2023, 05/28/2023, Additional history exists CKD PHOS USE SMARTSET 70433 05/29/202405/19, 05/29/2023, 05/28/2023, Additional history exists DXA [...] Date/Time Associated Diagnosis Comments OUTSIDE LAB RESULTS 06/13/2023 documented in this encounter Results * OUTSIDE LAB RESULTS (06/13/2023) 06/13/2023 Lucia Pereira MD LABORATORY documented in this encounter Advance [...] and were consensually agreed upon. Care Teams Flexible Machining System Machinist Relationship Specialty Start Date End Date Nichole Lizarraga MD [address] [place] [address] PCP - General Internal Medicine 03/10/12 documented as of this encounter
--- OUTSIDE RECORDS SUMMARY | 2023-06-30 22:48 | External Medical Summary | Summary of Care ---
Author Name Unknown Organization [facility] [address] [facility] [address] Phone [phone] Care Team Providers Care Rhinologist Name Role Phone Nichole Lizarraga MD Primary Care Provider + Reason for Visit * Reason Onset Date Comments Home Health 06/11/2023 FYI 06/11/2023 Encounter Details Date Type Department Care Team (Late st Contact Info) Description 06/11/2023 Telephone General Internal Medicine [facility] [address] [place] [address] Nichole Lizarraga MD [address] [place] [address] Home Health; Allergies Active Allergy Reactions Criticality Noted Date Comments Penicillins Edema airway,Rash High 03/10/2012 Last dose age 14 Tolerated Ancef Pollen 01/17/2021 Ragweed 11/05/2022 documented as of this encounter (statuses as of 06/13/2023) Medications Medication Sig Dispensed Refills Start Date [...] 10/16/2016 Active fluticasone (FLONASE) 50 MCG/ACT nasal sprayIndications:Decision Analyst 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 1 Inhaler 5 04/21/2018 Active Additional Information Patient taking differently:2 [place] Each NostrilPRN, Allergies, Informant: Patient, Reported on [...] as of this encounter (statuses as of 06/13/2023) Active Problems Problem Noted Date Diagnosed Date [...] as of this encounter (statuses as of 06/13/2023) Resolved Problems Problem Noted Date Diagnosed Date Resolved Date Septic shock 05/26/2023 05/30/2023 Chronic kidney disease, stage 3b 04/30/2022 05/01/2023 Overview: Per CKD protocol Chronic kidney disease, stage 3a 05/29/2021 05/02/2022 Overview: Per CKD protocol Fever 09/13/2015 10/21/2017 Kidney stone on left side Inguinal hernia 10/21/2017 Overview: Surgical repair documented as of this encounter (statuses as of 06/13/2023) Immunizations Name Administration Dates Next Due COVID-19 mRNA, LNP-s, No Pre serve, 2-Dose Series ([employer]) 01/05/2021,05/07/2020,04/16/2020 COVID-19, LNP-s, No Preserve , Jasbir-sucrose, Ages 12+ ([employer]ifi) 09/06/2021 Covid-19, Mrna, Lnp-s, Pf, B ivalent, 30 Mcg, IM, 12 yrs and above (Dropifi) 01/31/2022 PPD 02/19/2017 Pneumococcal Conjugate Vacc, 13 [...] 2:47 PM EDT CHRISTIAN Villela calling from [facility]. They are able to do a nasal [...] mind or sx's become worse Called Tika ([facility]) to find out if doing a nasal [...] EDT HH Concerns Tika RN, Calling from: [facility] Report/Concerns of: cold symptoms Symptoms: see narrative [...] Care Team (Late st Contact Info) Description 06/14/2023 11:40 AM EDT Office Visit General Internal Medicine [facility] [address] [place] [address] Lucia Pereira MD [address] [place] [address] 06/20/2023 1:45 PM EDT Office Visit Hematology/Oncology [facility] [address] [place], [place] [phone] Aguilar Lizarraga MD [address] [place], [place] [address] 06/24/2023 10:40 AM EDT Office Visit Nephrology, [facility] [address] [place], [place] [address] Demetrius Sherman MD 200 [facility] [place], [place] [address] 07/04/2023 10:30 AM EDT Imaging Radiology [facility] 2nd [facility] [place] [facility] [address] 07/25/2023 11:00 AM EDT Office Visit Hematology/Oncology [facility] [address] [place], [place] [phone] Deyanira Lauren CRNP [address] [place] [address] 11/12/2023 9:20 AM EDT Office Visit General Internal Medicine [facility] [address] [place], [place] [address] Nichole Lizarraga MD [address] [place] [address] Health Maintenance Due Date Last Done Comments [...] Additional history exists CKD HGB USE SMARTSET 86064 05/29/202405/29, 05/29/2023, 05/28/2023, Additional history exists CKD PHOS USE SMARTSET 39597 05/29/202405/19, 05/29/2023, 05/28/2023, Additional history exists DXA [...] and were consensually agreed upon. Care Teams Rhinologist Relationship Specialty Start Date End Date Nichole Lizarraga MD [address] [facility] [place] [address] PCP - General Internal Medicine 03/10/12 documented as of this encounter
--- OUTSIDE RECORDS SUMMARY | 2023-06-30 22:48 | External Medical Summary | Summary of Care ---
Author Name Unknown Organization [facility] Address [address] [place] [address] Phone [phone] Care Team Providers Care Sap Project Manager Name Role Phone Nichole Lizarraga MD Primary Care Provider + Reason for Visit * Reason Onset Date Comments MyCode Nonconsent - Not interested at this time 06/14/2023 Encounter Details Date Type Department Care Team (Late st Contact Info) Description 06/14/2023 Orders Only Outcomes Research Department [address], [place] [id number] Gisela Conner CHRA MyCode Nonconsent Documentation Allergies Active Allergy Reactions Criticality Noted Date [...] 10/16/2016 Active fluticasone (FLONASE) 50 MCG/ACT nasal sprayIndications:Corrections Lieutenant 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 1 Inhaler 5 04/21/2018 Active Additional Information Patient taking differently:2 [place] Each NostrilPRN, Allergies, Informant: Patient, Reported on [...] 15 mL 0 06/14/2023 Active Magic Swizzle (Juaohpyzk-Lczfhcpd-R aalox) oral solutionIndications:P haryngoesophageal dysphagia,History of abdominal [...] mRNA, LNP-s, No Pre serve, 2-Dose Series ([employer]) 01/05/2021,05/07/2020,04/16/2020 COVID-19, LNP-s, No Preserve , Jasbir-sucrose, [...] as of this encounter Progress Notes * Gisela Conner CHRA - 06/14/2023 1:01 PM EDT MyCode Nonconsent Documentation Linsey Lucas Sameer was approached in the clinic regarding participation in the MyCode Project and did not consent. documented in this encounter Plan of Treatment Upcoming Encounters Date Type Department Care Team (Late st Contact Info) Description 06/20/2023 1:45 PM EDT Office Visit Hematology/Oncology [facility] [address] [phone] Aguilar Lizarraga MD [address] [address] 06/24/2023 10:40 AM EDT Office Visit Nephrology, [facility] [address] [place] [address] Demetrius Sherman MD [address] [address] 07/04/2023 10:30 AM EDT Imaging Radiology [facility] 2nd [facility] [place] [address] [facility] [place] [address] 07/25/2023 11:00 AM EDT Office Visit Hematology/Oncology [facility] [address] [facility] [place] [phone] Deyanira Lauren CRNP [address] [place] [address] 11/12/2023 9:20 AM EDT Office Visit General Internal Medicine [facility] [address] [facility] [place] [address] Nichole Lizarraga MD [address] [facility] [place] [address] Health Maintenance Due Date Last Done Comments [...] Additional history exists CKD HGB USE SMARTSET 63937 05/29/202405/29, 05/29/2023, 05/28/2023, Additional history exists CKD PHOS USE SMARTSET 95905 05/29/202405/19, 05/29/2023, 05/28/2023, Additional history exists DXA [...] and were consensually agreed upon. Care Teams Sap Project Manager Relationship Specialty Start Date End Date Nichole Lizarraga MD [address] [place] [address], [place] [address] PCP - General Internal Medicine 03/10/12 documented as of this encounter
--- OUTSIDE RECORDS SUMMARY | 2023-06-30 22:48 | External Medical Summary | Summary of Care ---
Author Name Unknown Organization [facility] Address [address] [place] [address] Phone [phone] Care Team Providers Care Operating Table Assembler Name Role Phone Nichole Lizarraga MD Primary Care Provider + Reason for Visit * Reason Comments Acute Pt tested positive w ith an at home COVID test. Symptoms began around 06/07/2023. 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 0 6 Active loratadine (CLARITIN) 10 MG Tablet Take 1 Tablet by mouth every evening. 30 Tab 5 7 Active fluticasone (FLONASE) 50 MCG/ACT nasal sprayIndications:Ch ronic 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 1 Inhaler 5 9 Active Additional Information Patient taking differently:2 [place] Each NostrilPRN, Allergies, Informant: Patient, Reported on 05/29/2023 Econazole Nitrate 1 % External Cream (Spectazole)Indicat ions:Tinea pedis of both feet,Onychomycosis Apply 2x daily from ankles down to feet/nails 2x daily for about 1 month until resolved, then 2x weekly to maintain clearance 170 g 2 2 Active Azelastine HCl 137 MCG/SPRAY Nasal SolutionIndications :Chronic sinusitis, unspecified location ADMINISTER 1 SPRAY INTO NOSTRIL 2 TIMES A DAY. 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 12.8 mL 5 4 Active Polyethylene Glycol 3350 17 GM/SCOOP Oral Powder (Miralax) Mix 17 grams of powder (1 capful to line) in 8 ounces of water or juice until dissolved and take by mouth daily at bedtime for constipation. 238 g 0 4 Active Additional Information Patient taking differently:17 g OralHS PRN, Constipation, Informant: Patient, Reported on 05/29/2023 Sennosides 8.6 MG Oral Tablet (Senokot) Take 2 Tablets by mouth daily in the morning. 28 Tablet 1 4 Active Additional Information Patient taking differently:2 Tablet OralDAILY PRN, Constipation, Informant: Patient, Reported on 05/29/2023 Acetaminophen 325 MG Oral Tablet (Tylenol) Take 2 Tablets by mouth every 4 hours as needed for mild pain or for fever greater than 38*C (100.5*F). 30 Tablet 0 4 Active Oxymetazoline HCl 0.05 % Nasal SolutionIndications :Dysfunction of both eustachian tubes Administer 2 Sprays into each nostril 2 times a day as needed for Congestion (for congestion). Do not use for more than three days. 15 mL 0 4 Active Magic Swizzle (Lidocaine-Benadryl -Maalox) oral solutionIndications :Pharyngoesophageal dysphagia,History of abdominal surgery Swish and swallow 15 mL in the morning and 15 mL at noon and 15 mL before bedtime. 315 mL 0 4 Active Magic Swizzle (Lidocaine-Benadryl -Maalox) oral solutionIndications :Pharyngoesophageal dysphagia,History of abdominal surgery Swish and swallow 15 mL in the morning and 15 mL at noon and 15 mL before bedtime. Do all this for 7 days. 315 mL 0 4 06/14/19 24 Discontinued Oxymetazoline HCl 0.05 % Nasal SolutionIndications :Dysfunction of both eustachian tubes Administer 2 Sprays into each nostril 2 times a day as needed for Congestion (for congestion). Do not use for more than three days. 15 mL 0 4 06/14/19 24 Discontinued documented as of this encounter (statuses as [...] mRNA, LNP-s, No Pre serve, 2-Dose Series (NEBOTRADE) 01/05/2021,05/07/2020,04/16/2020 COVID-19, LNP-s, No Preserve , Jasbir-sucrose, Ages 12+ (Pfizer) 09/06/2021 Covid-19, Mrna, Lnp-s, Pf, B ivalent, 30 Mcg, IM, 12 yrs and above (NEBOTRADE) 01/31/2022 PPD 02/19/2017 Pneumococcal Conjugate Vacc, 13 [...] Sign Reading Time Taken Comments Blood Pressure 102/60 06/14/2023 11:55 AM EDT Pulse 89 06/14/2023 11:55 AM EDT Temperature 36.6 C (97.9 F) 06/14/2023 11:55 AM E DT Respiratory Rate - - Oxygen Saturation 100% 06/14/2023 11:55 AM EDT Inhaled Oxygen Concentration - - Weight 56.7 kg (125 lb 1.6 oz) 06/14/2023 11:55 AM EDT Height 166.4 cm (5' 5.5") 06/14/2023 11:55 AM ED T Body Mass Index 20.5 06/14/2023 11:55 AM EDT documented in this [...] as of this encounter Progress Notes * Lucia Pereira MD - 06/14/2023 12:04 PM EDT SUBJECTIVE: Linsey Estrella is a 73 year old female. Chief Complaint Patient presents with Acute Pt tested positive with an at home COVID test. Symptoms began around 06/07/2023. Symptoms include difficulty swallowing, sore throat, dry cough, lack of sleep HPI: Patient presents today for acute appointment with 1 week onset of symptoms. Admits to a dry cough, nasal congestion, sore throat, no runny nose or headache, has a feeling of fullness in the earswhen she swallows and intermittent fever. She was admitted in the hospital in [place] for urologicsurgery and seen by Urology in follow-up, had UTI and was treated with Augmentin for 10 days from Ap ril 11th. Her stoma is draining clear urine. Denies any abdominal pain. Bowel movements have been normal. States surgery lasted for about 5 hours and has a discomfort in her throat denies any symptoms of reflux or heartburn. Has been taking Flonase in the morning, Astelin twice daily, not currently on Claritin. Home health nurse did home COVID test yesterday which was positive. 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 30 Tablet 0 No current facility-administered medications for this visit. Review of patient's allergies indicates: Allergen Reactions Penicillins Edema airway and Rash Last dose age 14 Tolerated Ancef Pollen Ragweed OBJECTIVE: BP 102/60 | Pulse 89 | Temp 36.6 C (97.9 F) (Tympanic) | Ht 1.664 m (5' 5.5") | Wt 56.7 kg (125lb 1.6 oz) | SpO2 100% | BMI 20.50 kg/m | BSA 1.62 m PHYSICAL EXAM: General: alert, healthy, no distress, well nourished and well developed Ears: External ears normal, Canals clear, TM's Normal Nose: mild mucosal edema, no purulent discharge, no mucosal erythema, no sinus tenderness Oropharynx: no exudate, no erythema Neck: supple, no adenopathy Heart: regular Rhythm and rate, no murmurs Lungs: lungs clear to auscultation Abd--stoma Rt side abd draining clear urine ASSESSMENT/PLAN: COVID-19 virus infection (Primary) Inc intake fluids. Advised to use otc nasal saline spray/drops q1-2 hrs while awake as needed. Advised warm saline gargles qid prn for relief. ct current meds Pharyngoesophageal dysphagia - Magic Swizzle (Dvxpuwmzl-Xnevoebo-Zpvwxc) oral solution; Swish and swallow 15 mL in the morning and 15 mL at noon and 15 mL before bedtime. 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 Dysfunction of both eustachian tubes - Oxymetazoline HCl 0.05 % Nasal Solution; Administer 2 Sprays into each nostril 2 times a day as needed for Congestion (for congestion). Do not use for more than three days. Chronic rhinitis Inc intake fluids. Advised to use otc nasal saline spray/drops q1-2 hrs while awake as needed. Advised warm saline gargles qid prn for relief. Continue current medications, add Claritin daily, Afrin nasal spray as above. Trial of magic swizzle for throat discomfort, may have been related to intubation during surgery Follow Up: Return if symptoms worsen or fail to improve. (This note was completed using the dictation program Fluency Direct. As such, there may be misspellings, word substitutions, or other variations that should not change the essence of the clinical content of this encounter note. If there is need for further clarification, please direct questions to the provider listed above.) Patient and / caregiver verbalize understanding of above instructions and agrees with plan of care. Lucia Pereira MD 06/14/2023 documented in this encounter Nursing Notes * Lorena Lauren MED ASSIST - 06/14/2023 12:00 PM EDT Chief Complaint Patient presents with Acute Pt tested positive with an at home COVID test. Symptoms began around 06/07/2023. Symptoms include difficulty swallowing, sore throat, dry cough, lack of sleep documented in this encounter Plan of Treatment Upcoming Encounters Date Type Department Care Team (Late st Contact Info) Description 06/20/2023 1:45 PM EDT Office Visit Hematology/[facility] [address] [place] [id number] Aguilar Lizarraga MD [address] [place] [id number] 06/24/2023 10:40 AM EDT Office Visit Nephrology, [facility] [address] [place] [address] [address] Demetrius Sherman MD [address] [place] [address] [address] 07/04/2023 10:30 AM EDT Imaging Radiology [facility] [place] [address] [facility] [place] [address] 07/25/2023 11:00 AM EDT Office Visit Hematology/Oncology [facility] [place] [address] [id number] Deyanira Lauren CRNP [address] [place] [address] [place] [address] 11/12/2023 9:20 AM EDT Office Visit General Internal Medicine [facility] [address] [place] [address] Nichole Lizarraga MD [address] [facility] [place] [address] Health Maintenance Due Date Last Done Comments [...] Additional history exists CKD HGB USE SMARTSET 59048 05/29/202405/29, 05/29/2023, 05/28/2023, Additional history exists CKD PHOS USE SMARTSET 71924 05/29/202405/19, 05/29/2023, 05/28/2023, Additional history exists DXA [...] as of this encounter Visit Diagnoses Diagnosis COVID-19 virus infection- Primary Pharyngoesophageal dysphagia Dysphagia, pharyngoesophageal phase 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 Care Teams Operating Table Assembler Relationship Specialty Start Date End Date Nichole Lizarraga MD [address] [place] [address], [place] [address] PCP - General Internal Medicine 03/10/12 documented as of this encounter
--- OUTSIDE RECORDS SUMMARY | 2023-06-30 22:48 | External Medical Summary | Summary of Care ---
Author Name Unknown Organization [facility] Address [address] [facility] [place] [address] Phone [phone] Care Team Providers Care Coding File Clerk Name Role Phone Nichole Lizarraga MD Primary Care Provider + Reason for Visit * Reason Onset Date Comments Precert Approved 03/12/2023 18 PAVAN Ocampo Encounter Details Date Type Department Care Team (Late st Contact Info) Description 03/02/2023 Telephone Hematology/Oncology [facility] [address] [place] [phone] Aguilar Lizarraga MD [address] [place] [address] Precert Approved (18 [address] Damaris) Allergies Active Allergy Reactions Criticality Noted Date Comments Penicillins Edema airway,Rash High 03/10/2012 Last dose age 14 Tolerated Ancef Pollen 01/17/2021 Ragweed 11/05/2022 documented as of this encounter (statuses as of 06/01/2023) Medications Medication Sig Dispensed Refills Start Date [...] 9 Active Additional Information Patient taking differently:2 [place] Each NostrilPRN, Allergies, Informant: Patient, Reported on [...] throughout chemotherapy. 12.8 mL 5 4 Active MULTIVITAMINS PO TABS Take 1 Tablet by mouth in the morning. 0 3 05/30/19 24 Discontinued Solifenacin Succinate 5 MG Oral Tablet (VESIcare) Take 1 Tablet by mouth in the morning. 90 Tablet 3 3 05/13/19 24 Discontinued Zarxio 300 MCG/0.5ML Injection Solution Prefilled Syringe (Filgrastim-sndz)In dications:Chronic neutropenia (HCC),Large granular lymphocytic leukemia (HCC) Inject 300 mcg (1 syringe) under the skin for 4 days a week 8 mL 5 3 04/08/19 24 Discontinued Sulfamethoxazole-Tr imethoprim 800-160 MG Oral Tablet (Bactrim DS) Take 1 Tablet by mouth in the morning and 1 Tablet before bedtime. 6 Tablet 0 3 04/08/19 24 Discontinued Phenazopyridine HCl 200 MG Oral Tablet (Pyridium) Take 1 Tablet by mouth 3 times a day as needed for Other (bladder spasms). After meals. 15 Tablet 0 3 04/08/19 24 Discontinued documented as of this encounter (statuses as of 06/01/2023) Active Problems Problem Noted Date Diagnosed Date [...] as of this encounter (statuses as of 06/01/2023) Resolved Problems Problem Noted Date Diagnosed Date Resolved Date Septic shock 05/26/2023 05/30/2023 Chronic kidney disease, stage 3b 04/30/2022 05/01/2023 Overview: Per CKD protocol Chronic kidney disease, stage 3a 05/29/2021 05/02/2022 Overview: Per CKD protocol Fever 09/13/2015 10/21/2017 Kidney stone on left side Inguinal hernia 10/21/2017 Overview: Surgical repair documented as of this encounter (statuses as of 06/01/2023) Immunizations Name Administration Dates Next Due COVID-19 mRNA, LNP-s, No Pre serve, 2-Dose Series (NexPlanar) 01/05/2021,05/07/2020,04/16/2020 COVID-19, LNP-s, No Preserve , Jasbir-sucrose, [...] encounter Miscellaneous Notes * Telephone Encounter - Shanice Prieto, DOMINIQUE - 03/12/2023 7:55 AM EST Images from the original note were not included. New or re-auth: New authorization Approved/Denied: Approved - appeal has been approved by [facility] Name and Formulation: Zarxio 480 MCG/0.8ML Injection Solution Prefilled Syringe How Prescribed(directions/sig): Administer 480mcg (1 syringe) 4 days a week throughout chemotherapy Day Supply: 28 Did you receive insurance information from outside the chart? No, received insurance information within the chart Valid auth start date: 03/09/23 Valid auth end date: 03/09/24 Rx Insurance Info: Ayanna [place] Reference #: [id number] - Appeal Number Rx Benefits Verified through/on date: 03/12/23 Referral (TE) received from: [facility] Shanice Prieto Medication [employer] P: [phone] F: [phone] 03/12/23,7:51 AM * Telephone Encounter - Shanice Prieto OSA - 03/07/2023 9:32 AM EST Images from the original note were not included. Request received to resubmit with new dosage. Unable to do so on CMM, continues to return error message that it cannot process due to recent denial. Per TE notes, Keith villar advised office to resubmit. Completed paper request and faxed to number provided. Shanice Prieto Medication [employer] P: [phone] F: [phone] 03/07/2023,9:32 AM * Telephone Encounter - Dee Brush RN - 03/06/2023 4:26 PM EST Precert: please submit for new urgent auth- zarxio is now being given 4 days a week with chemotherapy. ICD-10: c67.1, d70.9, c91.z0, z51.11 Start date: STAT Drugs: Disp Refills Start End Filgrastim-sndz 480 MCG/0.8ML Injection Solution Prefilled Syringe (Zarxio) 3.2 mL 5 03/01/2023 -- Sig: Administer 480mcg (1 syringe) 4 days a week throughout chemotherapy Physician: Dr Aguilar Lizarraga * Telephone Encounter - Ambika Sethi PHARM Tech - 03/04/2023 2:42 PM EST Almaz from [employer] calling to request new PA/appeal started for Zarxio 480 - states the pending request was cancelled via [employer] for requiring additional information. Please advise and resubmit PA or appeal. Additional questions Almaz can be reached at [phone] Thanks, Ambika Sethi [employer] [facility] ([facility]) 03/04/2023,2:43 PM * Telephone Encounter - Albania Valdez OSA - 03/04/2023 10:42 AM EST Images from the original note were not included. Could not submit. Pending prior auth already exists per [facility]. Thank you, Albania Valdez Medication [employer] 03/04/2023, 10:42 AM * Telephone Encounter - Kitty Brantley CPhT - 03/02/2023 9:34 AM EST Images from the original note were not included. New or re-auth: NEW DOSE Prior authorization needed through [employer] insurance. Medication: zarxio 480 Formulation: syr Dosage: Administer 480mcg (1 syringe) 4 days a week throughout chemotherapy [phone] Thank you, Kitty Brantley CPhT [facility] 03/02/2023,9:35 AM documented in this encounter Plan of Treatment Upcoming Encounters Date Type Department Care Team (Late st Contact Info) Description 06/04/2023 9:30 AM EDT Office Visit Urology, [place] [address] [place] [address] Saul Vargas MD [address] [place] [address] 06/10/2023 10:30 AM EDT Office Visit Urology, [facility] [address] [place] [address] Chris Royal MD [address] [facility] [address] [place] [address] 06/24/2023 10:40 AM EDT Office Visit Nephrology, [facility] [address] [place] [address] Demetrius Sherman MD [address] [facility] [place] [address] 07/25/2023 11:15 AM EDT Office Visit Hematology/On[facility] [address] [facility] [place] [place] [address] Aguilar Lizarraga MD [address] [facility] [place] [address] 11/12/2023 9:20 AM EDT Office Visit General Internal Medicine [facility] [address] [facility] [address] [place] [address] Nichole Lizarraga MD [address] [place] [address] Health Maintenance Due Date Last Done Comments [...] Additional history exists CKD HGB USE SMARTSET 82528 05/29/202405/29, 05/29/2023, 05/28/2023, Additional history exists CKD PHOS USE SMARTSET 29113 05/29/202405/19, 05/29/2023, 05/28/2023, Additional history exists DXA [...] Last Indicated Resolved Time Respiratory Rule-Out 05/25/2023 05/25/2023 024 10:11 PM EDT COVID-19 Rule-Out 05/25/2023 [...] and were consensually agreed upon. Care Teams Coding File Clerk Relationship Specialty Start Date End Date Nichole Lizarraga MD [address] [place] [address] PCP - General Internal Medicine 03/10/12 documented as of this encounter
--- OUTSIDE RECORDS SUMMARY | 2023-06-30 22:48 | External Medical Summary ---
Author Name Unknown Address Unknown Organization K[facility] - [address] [place] [address] Laboratory Report Ordering Provider Test Date Status WARDJOSE Gonzalez 05/30/2023 05:01:00 Final Observation Date Value Abnormality Reference (Units ) Status Magnesium 05/30/2023 05:01:00 1.6 1.5-2.6 (m g/dL) Final Performing Location [facility] [address] [place] [address]
--- OUTSIDE RECORDS SUMMARY | 2023-06-30 22:48 | External Medical Summary | Summary of Care ---
Author Name Unknown Organization [facility] Address [address] [place] [address] Phone [phone] Care Team Providers Care Technical Project Lead Name Role Phone Nichole Lizarraga MD Primary Care Provider + Reason for Visit * Reason Comments Post-Op Encounter Details Date Type Department Care Team (Late st Contact Info) Description 06/04/2023 9:30 AM EDT Office Visit Urology, [place] [address], [place] [phone] Saul aVrgas MD [address] [place] [address] Malignant neoplasm of urinary bladder, unspecified site (HCC)* Allergies Active Allergy Reactions Criticality Noted Date Comments Penicillins Edema airway,Rash High 03/10/2012 Last dose age 14 Tolerated Ancef Pollen 01/17/2021 Ragweed 11/05/2022 documented as of this encounter (statuses as of 06/04/2023) Medications Medication Sig Dispensed Refills Start Date [...] 10/16/2016 Active fluticasone (FLONASE) 50 MCG/ACT nasal sprayIndications:Chr onic 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 1 Inhaler 5 04/21/2018 Active Additional Information Patient taking differently:2 [place] Each NostrilPRN, Allergies, Informant: Patient, Reported on 05/29/2023 Econazole Nitrate 1 % External Cream (Spectazole)Indicati ons:Tinea pedis of both feet,Onychomycosis Apply 2x daily from ankles down to feet/nails 2x daily for about 1 month until resolved, then 2x weekly to maintain clearance 170 g 2 11/21/2021 Active Azelastine HCl 137 MCG/SPRAY Nasal SolutionIndications: Chronic sinusitis, unspecified location ADMINISTER 1 SPRAY INTO NOSTRIL 2 TIMES A DAY. 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 12.8 mL 5 03/01/2023 Active Enoxaparin Sodium 40 MG/0.4ML Injection Solution Prefilled Syringe (Lovenox) Inject the contents of 1 syringe (40 mg) under the skin daily in the morning for 23 days. 9.2 mL 0 05/13/2023 06/05/2023 Active Polyethylene Glycol 3350 17 GM/SCOOP Oral [...] 38*C (100.5*F). 30 Tablet 0 05/30/2023 Active Amoxicillin-Pot Clavulanate 875-125 MG Oral Tablet (Augmentin) Take 1 Tablet by mouth two times per day (morning & before bedtime). Do all this for 5 days. 10 Tablet 0 05/30/2023 06/04/2023 Active documented as of this encounter (statuses as of 06/04/2023) Active Problems Problem Noted Date Diagnosed Date [...] as of this encounter (statuses as of 06/04/2023) Resolved Problems Problem Noted Date Diagnosed Date Resolved Date Septic shock 05/26/2023 05/30/2023 Chronic kidney disease, stage 3b 04/30/2022 05/01/2023 Overview: Per CKD protocol Chronic kidney disease, stage 3a 05/29/2021 05/02/2022 Overview: Per CKD protocol Fever 09/13/2015 10/21/2017 Kidney stone on left side Inguinal hernia 10/21/2017 Overview: Surgical repair documented as of this encounter (statuses as of 06/04/2023) Immunizations Name Administration Dates Next Due COVID-19 mRNA, LNP-s, No Pre serve, 2-Dose Series (WHObyYOU) 01/05/2021,05/07/2020,04/16/2020 COVID-19, LNP-s, No Preserve , Jasbir-sucrose, [...] Sign Reading Time Taken Comments Blood Pressure 112/61 06/04/2023 9:33 AM EDT Pulse 89 06/04/2023 9:33 AM EDT Temperature 36.6 C (97.9 F) 06/04/2023 9:33 AM ED T Respiratory Rate - - Oxygen Saturation - - Inhaled Oxygen Concentration - - Weight 59.1 kg (130 lb 3 oz) 06/04/2023 9:33 AM EDT Height - - Body Mass Index 21.33 05/26/2023 4:00 AM EDT documented in this encounter Functional [...] as of this encounter Progress Notes * Saul Vargas MD - 06/04/2023 2:03 PM EDT Urology Staff Addendum I have discussed the patient's management with the medical trainee and agree with the note. Please refer to the documented findings and plan of care. The patient's service consisted of an evaluation.I have seen and evaluated the patient. I reviewed the pathology with the patient and her . We discussed the potential risks and benefits of adjuvant immunotherapy. I do not know that she is a candidate but will discuss with Dr. Lizarraga. Renal ultrasound in 1 month, we will call with results. If undergoing surveillance in not adjuvant therapy, we will follow up in [address] u[address]gram and CT chest. documented in this encounter Plan of Treatment Upcoming Encounters Date Type Department Care Team (Late st Contact Info) Description 06/24/2023 10:40 AM EDT Office Visit Nephrology, [facility] [address] [facility] [place] [address] Demetrius Sherman MD [address] [facility] [place] [address] 07/04/2023 10:30 AM EDT Imaging Radiology [facility] [address] [facility], [place] [address] [facility] [place] [address] 07/25/2023 11:00 AM EDT Office Visit Hematology/Oncology [facility] [place] [address] [facility] [place] [phone] Deyanira Lauren CRNP [address] [facility] [place] [address] 11/12/2023 9:20 AM EDT Office Visit General Internal Medicine [facility] [place] [address] [facility] [place] [address] Nichole Lizarraga MD [address] [facility] [place] [address] Scheduled Orders Name Type Priority Associated Diagnoses Orde r Schedule US RENAL Medical Imaging Routine Malignant neoplasm of urinary bladder, unspecified site (HCC) Expected: 07/04/2023, Expires: 07/03/2024 Health Maintenance Due Date Last Done Comments [...] Additional history exists CKD HGB USE SMARTSET 10718 05/29/202405/29, 05/29/2023, 05/28/2023, Additional history exists CKD PHOS USE SMARTSET 87658 05/29/202405/19, 05/29/2023, 05/28/2023, Additional history exists DXA [...] as of this encounter Visit Diagnoses Diagnosis Malignant neoplasm of urinary bladder, unspecified site (HCC)- Primary documented in this encounter Advance [...] and were consensually agreed upon. Care Teams Technical Project Lead Relationship Specialty Start Date End Date Nichole Lizarraga MD [address] [facility] [place] [address] PCP - General Internal Medicine 03/10/12 documented as of this encounter
--- OUTSIDE RECORDS SUMMARY | 2023-06-30 22:48 | External Medical Summary | Summary of Care ---
Author Name Unknown Organization [facility] Address [address] [place] [address] Phone [phone] Care Team Providers Care Clinical Admissions Manager Name Role Phone Nichole Lizarraga MD Primary Care Provider + Encounter Details Date Type Department Care Team (Late st Contact Info) Description 06/04/2023 11:00 AM EDT Nurse Only General Surgery, [place] [address], [place] [phone] A6, Wound Ostomy Nurse [address], [place] [phone] Allergies Active Allergy Reactions Criticality Noted Date [...] 04/21/2018 Active Additional Information Patient taking differently:2 [place] Each NostrilPRN, Allergies, Informant: Patient, Reported on [...] mRNA, LNP-s, No Pre serve, 2-Dose Series (B[place]eno) 01/05/2021,05/07/2020,04/16/2020 COVID-19, LNP-s, No Preserve , Jasbir-sucrose, [...] as of this encounter Progress Notes * Remy Reyna RN - 06/04/2023 11:18 AM EDT Seen in Urology clinic for urostomy care. present who assists with pouching Stent removed by Dr. Vargas prior to my arrival Pouching changed to urostomy R abd stoma 1 1/8" red, round, slightly raised with minor skin irritation around stoma edge. Denies problems with leaking. Skin cleansed, No sting skin barrier applied toperistomal skin. Repouched with Convatec 2 1/4" cut to fit wafer/pouch Has supplies at home. Continues with All questions answered documented in this encounter Plan of Treatment Upcoming Encounters Date Type Department Care Team (Late st Contact Info) Description 06/24/2023 10:40 AM EDT Office Visit [facility] [address] [place] [address] [address] Demetrius Sherman MD [address] [place] [address] [address] 07/04/2023 10:30 AM EDT Imaging Radiology [facility] [address] [facility], [place] [address] [place] [address] 07/25/2023 11:00 AM EDT Office Visit Hematology/Oncology [facility] [address] [place] [phone] Deyanira Lauren CRNP [address] [place] [address] 11/12/2023 9:20 AM EDT Office Visit General Internal Medicine [facility] [place] [address] [facility] [place] [address] Nichole Lizarraga MD [address] [facility] [place] [address] Health Maintenance Due Date Last Done Comments [...] Additional history exists CKD HGB USE SMARTSET 27307 05/29/202405/29, 05/29/2023, 05/28/2023, Additional history exists CKD PHOS USE SMARTSET 61264 05/29/202405/19, 05/29/2023, 05/28/2023, Additional history exists DXA [...] and were consensually agreed upon. Care Teams Clinical Admissions Manager Relationship Specialty Start Date End Date Nichole Lizarraga MD [address] [facility] [place] [address] PCP - General Internal Medicine 03/10/12 documented as of this encounter
--- OUTSIDE RECORDS SUMMARY | 2023-06-30 22:48 | External Medical Summary | Summary of Care ---
Author Name Unknown Organization [facility] Address [address] [place] [address] Phone [phone] Care Team Providers Care Historiographer Name Role Phone Kvng Lizarraga MD Primary Care Provider + Reason for Visit * Auth/Cert Specialty Diagnoses / Procedures Referred By Yessenia avendaño Referred To Contact Diagnoses Septic shock (HCC) Neutropenic sepsis (HCC) septic shock Lonny Patel MD [address] [place] [address] Nsicu 4 Ip [facility] [place] [address] [place] [address] Referral ID Status Reason Start Date Expiration Date Visits Re quested Visits Authorized [id number] Encounter Details Date Type Department Care Team (Latest Contact Info) Description 05/26/2023 2:41 AM EDT - 05/30/2023 2:25 PM EDT Hospital Encounter [facility], Neuroscience Intensive Care Unit, [facility] 4th Floor [address] [place] [address] Martinez Guerrero MD [address] [place] [address] Lonny Patel MD [address] [place] [address] Pushpa Perez MD [address] [place] [address] Discharge Disposition: Home - Self Care Allergies Active Allergy Reactions Criticality Noted Date Comments Penicillins Edema airway,Rash High 03/10/2012 Last dose age 14 Tolerated Ancef Pollen 01/17/2021 Ragweed 11/05/2022 documented as of this encounter (statuses as of 05/31/2023) Medications Medication Sig Dispensed Refills Start Date [...] 9 Active Additional Information Patient taking differently:2 [place] Each NostrilPRN, Allergies, Informant: Patient, Reported on [...] throughout chemotherapy. 12.8 mL 5 4 Active Enoxaparin Sodium 40 MG/0.4ML Injection Solution Prefilled Syringe (Lovenox) Inject the contents of 1 syringe (40 mg) under the skin daily in the morning for 23 days. 9.2 mL 0 4 06/05/19 24 Active Polyethylene Glycol 3350 17 GM/SCOOP Oral [...] 38*C (100.5*F). 30 Tablet 0 4 Active Amoxicillin-Pot Clavulanate 875-125 MG Oral Tablet (Augmentin) Take 1 Tablet by mouth two times per day (morning & before bedtime). Do all this for 5 days. 10 Tablet 0 4 06/04/19 24 Active MULTIVITAMINS PO TABS Take 1 Tablet by mouth in the morning. 0 3 05/30/19 24 Discontinued oxyCODONE HCl 5 MG Oral Tablet (Oxy IR) Take 1 Tablet by mouth every 4 hours as needed for severe pain. 5 Tablet 0 4 05/30/19 24 Discontinued documented as of this encounter (statuses as of 05/31/2023) Active Problems Problem Noted Date Diagnosed Date [...] as of this encounter (statuses as of 05/31/2023) Resolved Problems Problem Noted Date Diagnosed Date Resolved Date Septic shock 05/26/2023 05/30/2023 Chronic kidney disease, stage 3b 04/30/2022 05/01/2023 Overview: Per CKD protocol Chronic kidney disease, stage 3a 05/29/2021 05/02/2022 Overview: Per CKD protocol Fever 09/13/2015 10/21/2017 Kidney stone on left side Inguinal hernia 10/21/2017 Overview: Surgical repair documented as of this encounter (statuses as of 05/31/2023) Immunizations Name Administration Dates Next Due COVID-19 mRNA, LNP-s, No Pre serve, 2-Dose Series ([employer]) 01/05/2021,05/07/2020,04/16/2020 COVID-19, LNP-s, No Preserve , Jasbir-sucrose, [...] Sign Reading Time Taken Comments Blood Pressure 114/62 05/30/2023 1:00 PM EDT Pulse 90 05/30/2023 1:00 PM EDT Temperature 35.6 C (96.1 F) 05/30/2023 12:00 PM E DT Respiratory Rate 26 05/30/2023 1:00 PM EDT Oxygen Saturation 100% 05/30/2023 1:00 PM EDT Inhaled Oxygen Concentration - - Weight 58.6 kg (129 lb 3 oz) 05/29/2023 8:00 PM EDT Height 166.4 cm (5' 5.5") 05/26/2023 4:00 AM EDT Body Mass Index 21.17 05/26/2023 4:00 AM EDT documented in this [...] No 05/26/2023 documented as of this encounter Discharge Summaries * Dhara Knapp, DO - 05/30/2023 1:00 PM EDT [address] [address] Admission Date: 05/26/2023 Discharge Date: 05/30/2023 RECOMMENDED TO DO FOR NEXT PROVIDER(S): Continue to have her follow-up with urology and oncology as needed. REASON(S) FOR MEDICATION CHANGE(S): Augmentin add for outpatient coverage of complicated UTI. Patient has tolerated ancef, unasyn, and zosyn decreasing suspicion for continued penicillin allergy. DISPOSITION ON DISCHARGE: home DISCHARGE DIAGNOSES: Active Hospital Problems Diagnosis Obstructive uropathy Resolved Hospital Problems Diagnosis Date Resolved Septic shock (HCC) 05/30/2023 ADMISSION HISTORY & PHYSICAL EXAM (focused): Pertinent Medical History: Patient is a 73 year old female with a PMHx of Leukemia (1996) who was transferred from [facility] secondary to septic shock. Patient has a history bladder cancer for which she recently underwent hysterectomy, bilateral salpingoophorectomy with cystectomy, ileal conduit by Dr. Saul Vargas (05/07). Below taken from 05/12 Discharge Summary: 11/2020 - Presented with urge urinary incontinence, left hydronephrosis and possible distal ureteral tumor 12/2020 - Cysto and left retrograde pyelogram: "diffusely abnormal mucosa with inflammatory and papillary changes at dome and posterior wall, high-grade ureteral obstruction" Cold cup biopsies showedmultifocal CIS (right, left, posterior cevallos, dome) 01/2021 - left lap nephroureterectomy, pT2N0 (0/1 LNs) high-grade UC, margins negative 04/2021 - completed induction BCG 05/2021 - bladder biopsy, inflammation, no carcinoma 08/2022 - completed 1 year maintenance BCG, CT urogram showed a 2 cm enhancing nodule at the dome ofthe bladder, cystoscopy negative 12/2022 - cysto showed abnormality at dome of bladder, CT urogram showed enlarging mass in this area 01/2023 - TURBT, abnormal area at the dome of the bladder, no franck papillary tumor Pathology: high-grade UC with sarcomatoid and squamous differentiation. 05/08/2023: S/P hysterectomy, bilateral salpingoophorectomy with cystectomy, ileal conduit by Dr. Saul Vargas secondary to High-risk nonmuscle invasive bladder cancer and left upper urinary tracturothelial carcinoma. The patient has a PMHx significant for leukemia, neutropenia followed by Dr. Lizarraga in Oncology. " Today: Patient presented to [facility] ED for fever. States that the fever began yesterday afternoon and quickly worsened to a temp of 104 degrees F with shaking chills. Patient contacted her urologist who recommended she go to the emergency department. Patient denies abdominal pain, nausea, vomiting, flank pain, chest pain, or shortness of breath. Does admit to fever, chills, as well as intermittent diarrhea. CT scan performed at the OSH revealed severe right hydro ureteral nephrosis despite the stent as well as a small right hemipelvis abscess. Patient is chronically neutropenic, but not currently undergoing chemotherapy. Patient arrived on 12 mcg/minute of Levophed. Patient reports she has no history of tobacco OBJECTIVE: Most Recent Vital Signs: BP: 99 mmHg/53 mmHg (05/26/23399) Pulse: 103 (05/26/23399) Temp: 37 C (05/26/23399) Temp Summary: Temp Min: 37 C (98.6 F) Max: 37.2 C (99 F) SpO2: 100 % (05/26/23399) O2 flow rate: Supplemental O2 Delivery: Room Air, None (04/07/24 0500) Physical Exam: Constitutional: (+) ill appearing HEENT: normal: normocephalic, atraumatic; no masses, tenderness, or adenopathy Eyes: sclera and conjunctiva normal Neck: supple, normal range of motion CV: normal heart sounds, normal rate, normal rhythm Chest: normal respiratory effort, breath sounds normal Abdomen: soft, no tenderness, (+) ileal conduit - urine in bag with some clumping. Stump appears healthy. No evidence of postoperative wound infection. Incisions healing well. Some with dermabond still in place Extremities: no edema, normal ROM Skin: warm, dry, intact: Neuro: alert, oriented to person, place, and time, normal mental status exam, Glascow Coma Score 15, muscular strength 5/5 and symmetric, sensory normal ACTIVE HOSPITAL PROBLEMS: Active Problems: Obstructive uropathy HOSPITAL COURSE (focused): The patient is a 73 year old female with history of bladder cancer, for which she had recent hysterectomy, bilateral salpingoophorectomy with cystectomy, ileal conduit in April of 2023. She also has a hx of leukemia in 1996, and neutropenia. She presented to [place] ED on 05/24 for one day of fevers (T max 104 F), chills, weakness, and feeling unwell; she was tachycardic and hypotensive on arrival, sepsis alert initiated. She was started on vancomycin and cefepime, and levophed to 12 mcg/min inaddition to fluid resuscitation. CT scan revealed severe right hydro/ureteralnephrosis. She also has a history of previous leukemia in the early , and has since been chronically neutropenic, for which she takes filgrastim 4 days per week. She was transferred to [facility] on 05/25. Urology evaluated and irrigated blockage in right ureteral stent with subsequent improvement of urine flow. She was switched to unasyn on 05/28 and tolerated this well. Urology state patient was safe for discharge on 05/29 and pharmacy recommended outpatient augmentin to complete 10 days of treatment for complicated UTI. Patient has tolerated other penicillins (unasyn, ancef, and zosyn) in the past. Vent/ABG: no Airway: Operations & Procedures: Urology irrigated blockage in right ureteral stent Complications: none significant Labs: Blood Gas: Lab results within last 7 days (see chart for full results) Units 05/26/2343305/25/232053 pH, Venous units 7.395 7.382 pCO2, Venous mmHg 28.3* 26.4* pO2, Venous mmHg 21.9* 58.0* Base Excess, Venous mmol/L -6.7* -8.2* Chemistry Panel: Lab results within last 7 days (see chart for full results) Units 05/30/23 05005/29/2342205/28/2344805/27/2343705/26/2343205/25/232053 Sodium mmol/L 140 140 139 136 134* 133* Potassium mmol/L 3.4* 3.4* 2.8* 3.5 4.3 4.0 Chloride mmol/L 112* 113* 108* 107 105 104 CO2 mmol/L 19* 18* 19* 19* 15* 12* BUN mg/dL 12 11 16 23* 39* 43* Creatinine mg/dL 1.2* 1.3* 1.3* 1.6* 1.8* 1.9* Estimated Glomerular Filtration Rate mL/min 49* 44* 44* 35* 29* 28* Glucose mg/dL 93 96 98 135* 123* 126* Calcium mg/dL 7.9* 7.8* 7.5* 7.8* 7.6* 8.6 Magnesium mg/dL 1.6 2.0 1.8 2.0 1.7 -- Phosphorus mg/dL 2.2* 2.2* 2.9 3.6 3.9 -- Anion Gap mmol/L 9 9 12 10 14 17* Complete Blood Count: Lab results within last 7 days (see chart for full results) Units 05/30/23 05005/29/2342205/28/2344805/27/2343705/25/232053 WBC K/uL 2.09* 2.46* 1.57* 2.46* 1.11* HGB g/dL 7.3* 8.2* 7.7* 8.4* 9.8* HCT % 23.4* 27.0* 24.3* 25.9* 30.7* PLT K/uL 222 249 238 324 346 MCV fL 90.7 91.8 89.0 89.0 90.0 Cardiac Studies: Lab results within last 7 days (see chart for full results) Units 05/25/232053 Troponin T, High Sensitivity ng/L 45* Coagulation Studies: Lab results within last 7 days (see chart for full results) Units 05/25/232053 Prothrombin Time seconds 14.2 INR 1.1 aPTT seconds 41* Liver Function Panel: Lab results within last 7 days (see chart for full results) Units 05/25/232053 Albumin g/dL 2.6* Protein g/dL 6.3 Bilirubin, Total mg/dL 0.4 AST U/L 10 ALT U/L 11 Alkaline Phosphatase U/L 70 Infectious Studies: Lab results within last 7 days (see chart for full results) Units 05/27/23 0438 05/25/232053 Lactate, Whole Blood mmol/L -- 1.0 Procalcitonin ng/mL -- 11.53* Ferritin ng/mL 386* -- Imaging (focused): [facility] Imaging: yes - US RENAL Result Date: 05/29/2023 IMPRESSION Similar mild to moderate right hydronephrosis. Test Results Still Pending at Discharge: none MEDICATIONS: [facility] discharge medications: Discharge medications MEDICATION UPDATES AT DISCHARGE START taking these medications INSTRUCTIONS Acetaminophen 325 MG Tablet Commonly known as: Tylenol Take 2 Tablets by mouth every 4 hours as needed for mild pain or for fever greater than 38*C (100.5*F). amoxicillin-clavulanate 875-125 MG per Tablet Commonly known as: Augmentin Take 1 Tablet by mouth two times per day (morning & before bedtime). Do all this for 5 days. CONTINUE taking these medications INSTRUCTIONS Azelastine 137 MCG/SPRAY Soln ADMINISTER 1 SPRAY INTO NOSTRIL 2 TIMES A DAY. Econazole Nitrate 1 % cream Commonly known as: Spectazole Apply 2x daily from ankles down to feet/nails 2x daily for about 1 month until resolved, then 2x weekly to maintain clearance Enoxaparin 40 MG/0.4ML injection Commonly known as: Lovenox Inject the contents of 1 syringe (40 mg) under the skin daily in the morning for 23 days. fluticasone 50 MCG/ACT nasal spray Commonly known as: Flonase Administer 2 Sprays into each nostril daily. Loratadine 10 MG Tablet Commonly known as: Claritin Take 1 Tablet by mouth every evening. ondansetron 8 MG Tablet Commonly known as: Zofran Take 1 Tablet by mouth every 8 hours as needed for Nausea. Polyethylene Glycol 3350 powder Commonly known as: Miralax Mix 17 grams of powder (1 capful to line) in 8 ounces of water or juice until dissolved and take bymouth daily at bedtime for constipation. Probiotic Daily Capsule Take 1 Capsule by mouth in the morning. prochlorperazine 10 MG Tablet Commonly known as: Compazine Take 1 Tablet by mouth every 6 hours as needed for Nausea. Senna Tablet Take 2 Tablets by mouth daily in the morning. Zarxio 480 MCG/0.8ML Sosy Generic drug: Filgrastim-sndz Administer 480 mcg (1 syringe) 4 days a week throughout chemotherapy. STOP taking these medications multivitamin Tabs oxyCODONE 5 MG immediate release tablet Commonly known as: Oxy IR CONTINUE taking these medications but follow up with your Primary Care Physician (PCP). INSTRUCTIONS Calcium Carbonate-Vitamin D 600-400 MG-UNIT per chew tablet Take 1 Tablet by mouth in the morning. SCHEDULED FOLLOW-UP: Future Appointments Appt Date/Time Provider Department 06/04/2023 9:30 AM Saul Vargas MD Urology, [place] 06/10/2023 10:30 AM Chris Royal MD Urology, [facility] 06/24/2023 10:40 AM Demetrius Sherman MD Nephrology, [facility] 07/25/2023 11:15 AM Flor Lizarraga MD Hematology/Oncology [facility] 11/12/2023 9:20 AM Kvng Lizarraga MD General Internal Medicine [facility] OTHER INFORMATION: Vital Signs (last recorded): Most Recent Systolic BP: 119 mmHg (05/30/231199) Most Recent Diastolic BP: 70 mmHg (05/30/231199) Pulse: 82 (05/30/231199) Resp: 29 (05/30/231199) Most Recent Temperature: 35.61 C (05/30/231199) Weight: 58.6 kg (129 lb 3 oz) (05/29/231999) SpO2: 99 % (05/30/231199) Allergies: Penicillins, Pollen, and Ragweed Activity: as tolerated Diet: age appropriate diet Nutrition: NA Code Status: Full Code Condition on Discharge: stable Indwelling Devices: none Burt Fall Scale: Fall Score: 35 (05/30/23 0800) Reference range: 0-24=minimal fall risk; 25-50=moderate fall risk; greater than 50=high fall risk. Isolation status: None Cognition: normal CONSULTS ORDERED: ADULT PHYSICAL THERAPY CONSULT IP ADULT OCCUPATIONAL THERAPY CONSULT IP CARE MANAGEMENT CONSULT IP UROLOGY CONSULT IP BLOOD MANAGEMENT CONSULT IP ADULT PHYSICAL THERAPY CONSULT IP REFERRING PHYSICIAN: Ref: ZACK FERNANDEZ[[id number]] [address] [facility] [place] [address] (office) [phone] (fax) PRIMARY CARE PROVIDER: PCP: Kvng Lizarraga MD [address] [place] [address] / [facility] [address] (office) [phone] (fax) Note: To contact a physician responsible for this patients hospital care, please call [employer] [phone]. Associated attestation - Pushpa Perez MD - 05/30/2023 2:05 PM EDT I saw and evaluated the patient today. I have reviewed the trainee note and agree. Discharge time: 45 minutes. documented in this encounter Discharge Instructions * Discharge Instr - AVS* Shravan Hudson MD - 05/30/2023 12:12 PM EDT Discharge Date: 05/30/2023 You may call the Department of Urology at [phone] during business hours for any questions or test results. For after hours emergencies call [phone] and have the doctor content publisher paged. The information below provides you with the instructions and the list of medications you need to betaking following discharge from the hospital. If you have any questions, please ask before leaving.Please carry this letter with you when you see your doctor in the clinic. If you have questions, you can reach us at the numbers above. Brief summary of your inpatient care: You were admitted to the hospital due to a urinary tract infection after your bladder operation in April. You were treated with antibiotics and monitored. You are now discharged home in good condition Diet: Resume normal diet Activity: No lifting, pushing or pulling more than 10 lbs for 3 weeks. Driving: Don't drive until you are no longer taking narcotics and can walk normally and firmly apply the brake without pain. See your primary care physician (Kvng Lizarraga MD) as needed. Special Instructions: Call the urology office if you have any questions or concerns or if you experience any of the following: - Elevated temperatures of 101 F or greater - Persistent nausea and vomiting - Pus-like drainage or redness around the incision or wound - Pain that is not controlled with prescribed medications Take tylenol and/or ibuprofen over the counter as needed for pain You should be up and walking at least 100 yards three times a day when at home. After surgery this helps to prevent the formation of blood clots in your legs that can possibly go to your lungs or heart. Continue lovenox injection that was prescribed for you after bladder operation until its end date Follow up: A follow up appointment has been made for you with Dr. Vargas on 06/04/23. You will be called withthis appointment. If you are not contacted about this appointment within 1 week you should call to confirm the date. Future Appointments Appt Date/Time Provider Department 06/04/2023 9:30 AM Saul Vargas MD Urology, [place] 06/10/2023 10:30 AM Chris Royal MD Urology, [facility] 06/24/2023 10:40 AM Demetrius Sherman MD Nephrology, [facility] 07/25/2023 11:15 AM Flor Lizarraga MD Hematology/Oncology [facility] 11/12/2023 9:20 AM Kvng Lizarraga MD General Internal Medicine [facility] * Care Mgmt Instr - AVS* Mariya Meyer RN - 05/28/2023 8:29 AM EDT No care restaurant team member to display documented in this encounter Progress Notes * Dhara Knapp DO - 05/30/2023 7:26 AM EDT Images from the original note were not included. CCM - PROGRESS NOTE [facility]-[address] [address] Name: Linsey Estrella Location: [facility] A4/A Date: 05/30/2023 Time: 7:26 AM Date of admission: 05/26/2023 Hospital length of stay: 4 days Subjective PATIENT DESCRIPTION: The patient is a 73 year old female with history of bladder cancer, for which she had recent hysterectomy, bilateral salpingoophorectomy with cystectomy, ileal conduit in April of 2023. She also has a hx of leukemia in 1996, and neutropenia. She presented to [place] ED on 05/24 for one day of fevers (T max 104 F), chills, weakness, and feeling unwell; she was tachycardic and hypotensive on arrival, sepsis alert initiated. She was started on vancomycin and cefepime, and levophed to 12 mcg/min inaddition to fluid resuscitation. CT scan revealed severe right hydro/ureteralnephrosis. She also has a history of previous leukemia in the early , and has since been chronically neutropenic, for which she takes filgrastim 4 days per week. EVENTS OF NOTE: 05/25 early AM: transferred to [facility], urology evaluated and irrigated blockage in right ureteral stent with subsequent improvement in urine flow INTERIM HISTORY / SUBJECTIVE: No acute events overnight Objective CONSTITUTIONAL DATA / OBJECTIVE: Vital Signs (Most Recent): Pulse: 79 (05/30/23699) BP: 113/65 (05/30/23699) Resp: 26 (05/30/23699) Temp: 36.8 C (98.2 F) (05/30/23599) SpO2: 100 % (05/30/23599) Vital Signs (Last 24 Hours): Pulse Av.6 Min: 71 Max: 93 No data recorded Most Recent Systolic BP Av.1 mmHg Min: 97 mmHg Max: 123 mmHg Most Recent Diastolic BP Av.6 mmHg Min: 53 mmHg Max: 73 mmHg Resp Av.6 Min: 14 Max: 28 Most Recent Temperature Av.7 C Min: 36.22 C Max: 37.28 C SpO2 Av % Min: 100 % Max: 100 % Ventilatory Support: not applicable Intake & Output Summary (Last 24 hours): Intake/Output Summary (Last 24 hours) at 05/30/2023 0726 Last data filed at 05/30/2023 0700 Gross per 24 hour Intake 879.2 ml Output 1495 ml Net -615.8 ml Physical Examination: General: In bed, well appearing, conversational Head: normocephalic, atraumatic Eyes: No conjunctival icterus, conjunctiva non-injected Oropharynx: Moist mucus membranes, no erythema Neck: supple, no adenopathy Lungs: Clear to auscultation bilaterally with no wheezes, rhonchi, or rales Heart: Physiologic rate and rhythm, no murmurs, rubs, or gallops Abdomen: Soft, non-tender, non-distended, normoactive bowel sounds present in all four quadrants, ostomy in place : Deferred Extremities: Normal capillary refill, Edema in the lower extremities. Hand edema improved from yesterday. Skin: Warm, dry, without rashes or sores Neuro: No focal deficits Laboratory Values: I have personally reviewed the results as of Blood Gas: Lab results within last 7 days (see chart for full results) Units 05/26/23 04305/25/232053 pH, Venous units 7.395 7.382 pCO2, Venous mmHg 28.3* 26.4* pO2, Venous mmHg 21.9* 58.0* Base Excess, Venous mmol/L -6.7* -8.2* Chemistry Panel: Lab results within last 7 days (see chart for full results) Units 05/30/23 0501 05/29/23 0423 05/28/23 0449 05/27/23 0438 05/26/23 04305/25/232053 Sodium mmol/L 140 140 139 136 134* 133* Potassium mmol/L 3.4* 3.4* 2.8* 3.5 4.3 4.0 Chloride mmol/L 112* 113* 108* 107 105 104 CO2 mmol/L 19* 18* 19* 19* 15* 12* BUN mg/dL 12 11 16 23* 39* 43* Creatinine mg/dL 1.2* 1.3* 1.3* 1.6* 1.8* 1.9* Estimated Glomerular Filtration Rate mL/min 49* 44* 44* 35* 29* 28* Glucose mg/dL 93 96 98 135* 123* 126* Calcium mg/dL 7.9* 7.8* 7.5* 7.8* 7.6* 8.6 Magnesium mg/dL 1.6 2.0 1.8 2.0 1.7 -- Phosphorus mg/dL 2.2* 2.2* 2.9 3.6 3.9 -- Anion Gap mmol/L 9 9 12 10 14 17* Complete Blood Count: Lab results within last 7 days (see chart for full results) Units 05/30/23 0501 05/29/23 0423 05/28/23 0449 05/27/2343705/25/232053 WBC K/uL 2.09* 2.46* 1.57* 2.46* 1.11* HGB g/dL 7.3* 8.2* 7.7* 8.4* 9.8* HCT % 23.4* 27.0* 24.3* 25.9* 30.7* PLT K/uL 222 249 238 324 346 MCV fL 90.7 91.8 89.0 89.0 90.0 Cardiac Studies: Lab results within last 7 days (see chart for full results) Units 05/25/232053 Troponin T, High Sensitivity ng/L 45* Coagulation Studies: Lab results within last 7 days (see chart for full results) Units 05/25/232053 Prothrombin Time seconds 14.2 INR 1.1 aPTT seconds 41* Liver Function Panel: Lab results within last 7 days (see chart for full results) Units 05/25/232053 Albumin g/dL 2.6* Protein g/dL 6.3 Bilirubin, Total mg/dL 0.4 AST U/L 10 ALT U/L 11 Alkaline Phosphatase U/L 70 Infectious Studies: Lab results within last 7 days (see chart for full results) Units 05/27/2343705/25/232053 Lactate, Whole Blood mmol/L -- 1.0 Procalcitonin ng/mL -- 11.53* Ferritin ng/mL 386* -- Radiographic Studies: I have personally reviewed the results as of US RENAL Result Date: 05/29/2023 IMPRESSION Similar mild to moderate right hydronephrosis. Cultures: I have personally reviewed the results as of Recent Cultures (2 Weeks) 05/26/2023 05/26/2023 05/25/2023 05/25/2023 04/25/2023 01/28/2023 03/13/2022 01/31/2022 4:19 AM 3:28 AM 9:02 PM 8:54 PM 4:05 PM 10:55 AM 11:31 AM 10:15 AM BLOOD CULTURE GROWTH -- -- No growth to date No growth to date -- -- -- -- QUANT URINE CULTURE GROWTH >100,000 colonies/mL Escherichia coli >100,000 colonies/mL Enterococcus species -- -- No significant growth No significant growth No significant growth No significantgrowth >100,000 colonies/mL Enterococcus species 1000 to 9999 colonies/mL Yeast >100,000 colonies/mL Streptococcus anginosus group 10,000 to 100,000 colonies/mL Escherichia coli Assessment & Plan Active Problems: Septic shock (HCC) (POA: Unknown) Obstructive uropathy (POA: Unknown) POA = Present On Admission NEUROLOGIC: Pain/Fever control - currently afebrile and without pain Tylenol PRN for any fever/pain - has not used any doses PULMONARY / RESPIRATORY: No acute concerns On room air, doing well CARDIOVASCULAR: Hypotensive; septic shock - resolved Vasopressors: has been off levophed since 05/26 GASTROINTESTINAL / HEPATOBILIARY: Last Bowel Movement: Stool Description: small;Loose;Watery (05/29/23 0529) Bowel Regimen: PRN senna, colace, Miralax Stress Ulcer Prophylaxis: n/a Diet / Nutrition: regular diet RENAL / METABOLIC / FLUIDS: Recent cystectomy, right ileal conduit in April JUANITO Baseline Cr seems to be around 0.8 Serum creatinine: 1.3 mg/dL (H) Monitor electrolytes at least daily. Replete electrolytes as indicated Strict monitoring of fluid intake and output; daily weights Daily BMP Renal ultrasound on 05/28 to f/u right hydronephrosis per urology INFECTIOUS DISEASES: Urosepsis - increased antibiotics to 10 day course given the patient's complex hx, cancer hx, and neutropenia Follow results of urine cultures, blood cultures E. Coli and enterococcus on urine cultures Blood cultures no growth to date Continue unasyn - today is day 5 of antibiotics continue on Augmentin outpatient for 10-day course (end on 06/03) ENDOCRINE: No acute concerns Blood Glucose Monitoring (BGM) Goal: 100-150 HEMATOLOGIC: Chronic neutropenia - FUNDS DEVELOPMENT DIRECTOR filgrastim m/t// Hx of large granular lymphocytic leukemia Hematology cleared for filgrastim CBC daily VTE/DVT Prophylaxis: SCDs, subcutaneous heparin (switch to lovenox once JUANITO resolves) Blood conservation consult MUSCULOSKELETAL/ DERM: No acute concerns PT/OT Wound care PRN LINES / DRAINS / TUBES: LINES ALL Duration Urostomy Ileal conduit RLQ 21 days Peripheral Line Right Antecubital 22 Gauge 1 day GLOBAL ISSUES: Code Status: Full Code Analgesia: well controlled Sedation: N/A Delirium/Confusion Assessment Method for ICU (CAM-ICU): negative HOB Elevation: greater than 30 degrees Nutrition: PO DVT Prophylaxis: chemoprophylaxis with pneumatic compression devices Stress Ulcer Prophylaxis: not indicated at this time. Glycemic Control: well controlled Central Line Necessity Reviewed: N/A Knox: N/A Disposition: transfer to floor Patient's decisional capacity: has capacity to make decisions Communication with Patient/Family: No meeting held. Goals of Care: stabilize hemodynamic status and decrease pain and discomfort Patient was seen and discussed on rounds with MD Dhara Guardado DO Emergency Medicine PGY-1 Associated attestation - Pushpa Perez MD - 05/30/2023 2:04 PM EDT I saw and evaluated the patient today. I have reviewed the trainee note and agree. Renal US mild to moderate hydronephrosis HD stable - Abx day 5/10 days due to her complex Hx and her neutropenia end date 06/03 - PRN bowel reg - ok to transfer to the floor * Dhara Knapp DO - 05/29/2023 5:46 AM EDT Images from the original note were not included. CCM - PROGRESS NOTE [facility] [place]-[address] [id number] Name: Linsey Estrella Location: [facility] [id number] Date: 05/29/2023 Time: 5:46 AM Date of admission: 05/26/2023 Hospital length of stay: 3 days Subjective PATIENT DESCRIPTION: The patient is a 73 year old female with history of bladder cancer, for which she had recent hysterectomy, bilateral salpingoophorectomy with cystectomy, ileal conduit in April of 2023. She also has a hx of leukemia in 1996, and neutropenia. She presented to [place] ED on 05/24 for one day of fevers (T max 104 F), chills, weakness, and feeling unwell; she was tachycardic and hypotensive on arrival, sepsis alert initiated. She was started on vancomycin and cefepime, and levophed to 12 mcg/min inaddition to fluid resuscitation. CT scan revealed severe right hydro/ureteralnephrosis. She also has a history of previous leukemia in the early , and has since been chronically neutropenic, for which she takes filgrastim 4 days per week. EVENTS OF NOTE: 05/25 early AM: transferred to [facility], urology evaluated and irrigated blockage in right ureteral stent with subsequent improvement in urine flow INTERIM HISTORY / SUBJECTIVE: Overnight -potassium and phos repleted Objective CONSTITUTIONAL DATA / OBJECTIVE: Vital Signs (Most Recent): Pulse: 74 (05/29/23 0500) BP: 112/60 (05/29/23 0500) Resp: 21 (05/29/23 0500) Temp: 37.2 C (99 F) (05/29/23 0400) SpO2: 98 % (05/29/23 0500) Vital Signs (Last 24 Hours): Pulse Av.5 Min: 69 Max: 87 No data recorded Most Recent Systolic BP Av mmHg Min: 98 mmHg Max: 123 mmHg Most Recent Diastolic BP Av.5 mmHg Min: 52 mmHg Max: 73 mmHg Resp Av Min: 17 Max: 28 Most Recent Temperature Av.8 C Min: 35.94 C Max: 37.22 C SpO2 Av.6 % Min: 98 % Max: 100 % Ventilatory Support: not applicable Intake & Output Summary (Last 24 hours): Intake/Output Summary (Last 24 hours) at 05/29/2023 0546 Last data filed at 05/29/2023 0529 Gross per 24 hour Intake 1586.03 ml Output 2065 ml Net -478.97 ml Physical Examination: General: In bed, well appearing, conversational Head: normocephalic, atraumatic Eyes: No conjunctival icterus, conjunctiva non-injected Oropharynx: Moist mucus membranes, no erythema Neck: supple, no adenopathy Lungs: Clear to auscultation bilaterally with no wheezes, rhonchi, or rales Heart: Physiologic rate and rhythm, no murmurs, rubs, or gallops Abdomen: Soft, non-tender, non-distended, normoactive bowel sounds present in all four quadrants, ostomy in place : Deferred Extremities: Normal capillary refill, Edema in the hands Skin: Warm, dry, without rashes or sores Neuro: No focal deficits Laboratory Values: I have personally reviewed the results as of Blood Gas: Lab results within last 7 days (see chart for full results) Units 05/26/23 0434 05/25/232053 pH, Venous units 7.395 7.382 pCO2, Venous mmHg 28.3* 26.4* pO2, Venous mmHg 21.9* 58.0* Base Excess, Venous mmol/L -6.7* -8.2* Chemistry Panel: Lab results within last 7 days (see chart for full results) Units 05/29/23 0423 05/28/23 0449 05/27/23 0438 05/26/23 0433 05/25/232053 Sodium mmol/L 140 139 136 134* 133* Potassium mmol/L 3.4* 2.8* 3.5 4.3 4.0 Chloride mmol/L 113* 108* 107 105 104 CO2 mmol/L 18* 19* 19* 15* 12* BUN mg/dL 11 16 23* 39* 43* Creatinine mg/dL 1.3* 1.3* 1.6* 1.8* 1.9* Estimated Glomerular Filtration Rate mL/min 44* 44* 35* 29* 28* Glucose mg/dL 96 98 135* 123* 126* Calcium mg/dL 7.8* 7.5* 7.8* 7.6* 8.6 Magnesium mg/dL 2.0 1.8 2.0 1.7 -- Phosphorus mg/dL 2.2* 2.9 3.6 3.9 -- Anion Gap mmol/L 9 12 10 14 17* Complete Blood Count: Lab results within last 7 days (see chart for full results) Units 05/29/23 0423 05/28/2344805/27/2343705/25/232053 WBC K/uL 2.46* 1.57* 2.46* 1.11* HGB g/dL 8.2* 7.7* 8.4* 9.8* HCT % 27.0* 24.3* 25.9* 30.7* PLT K/uL 249 238 324 346 MCV fL 91.8 89.0 89.0 90.0 Cardiac Studies: Lab results within last 7 days (see chart for full results) Units 05/25/232053 Troponin T, High Sensitivity ng/L 45* Coagulation Studies: Lab results within last 7 days (see chart for full results) Units 05/25/232053 Prothrombin Time seconds 14.2 INR 1.1 aPTT seconds 41* Liver Function Panel: Lab results within last 7 days (see chart for full results) Units 05/25/232053 Albumin g/dL 2.6* Protein g/dL 6.3 Bilirubin, Total mg/dL 0.4 AST U/L 10 ALT U/L 11 Alkaline Phosphatase U/L 70 Infectious Studies: Lab results within last 7 days (see chart for full results) Units 05/27/2343705/25/232053 Lactate, Whole Blood mmol/L -- 1.0 Procalcitonin ng/mL -- 11.53* Ferritin ng/mL 386* -- Radiographic Studies: I have personally reviewed the results as of 05/28 No imaging results in the last 72 hours Cultures: I have personally reviewed the results as of Recent Cultures (2 Weeks) 05/26/2023 05/26/2023 05/25/2023 05/25/2023 04/25/2023 01/28/2023 03/13/2022 01/31/2022 4:19 AM 3:28 AM 9:02 PM 8:54 PM 4:05 PM 10:55 AM 11:31 AM 10:15 AM BLOOD CULTURE GROWTH -- -- No growth to date No growth to date -- -- -- -- QUANT URINE CULTURE GROWTH >100,000 colonies/mL Escherichia coli >100,000 colonies/mL Enterococcus species -- -- No significant growth No significant growth No significant growth No significantgrowth >100,000 colonies/mL Enterococcus species 1000 to 9999 colonies/mL Yeast >100,000 colonies/mL Streptococcus anginosus group 10,000 to 100,000 colonies/mL Lactose fermenting gram negative bacilli Assessment & Plan Active Problems: Septic shock (HCC) (POA: Unknown) Obstructive uropathy (POA: Unknown) POA = Present On Admission NEUROLOGIC: Pain/Fever control - currently afebrile and without pain Tylenol PRN for any fever/pain - has not used any doses PULMONARY / RESPIRATORY: No acute concerns On room air, doing well CARDIOVASCULAR: Hypotensive; septic shock - resolved Vasopressors: has been off levophed since 05/26 GASTROINTESTINAL / HEPATOBILIARY: Last Bowel Movement: Stool Description: small;Loose;Watery (05/29/23 0529) Bowel Regimen: PRN senna, colace, Miralax Stress Ulcer Prophylaxis: n/a Diet / Nutrition: regular diet RENAL / METABOLIC / FLUIDS: Recent cystectomy, right ileal conduit in April JUANITO Baseline Cr seems to be around 0.8 Serum creatinine: 1.3 mg/dL (H) Monitor electrolytes at least daily. Replete electrolytes as indicated Strict monitoring of fluid intake and output; daily weights Daily BMP Renal ultrasound on 05/28 to f/u right hydronephrosis per urology INFECTIOUS DISEASES: Urosepsis - increased antibiotics to 10 day course given the patient's complex hx, cancer hx, and neutropenia Follow results of urine cultures, blood cultures E. Coli and enterococcus on urine cultures Blood cultures no growth to date Continue unasyn - today is day 5 of antibiotics, continue for 10-day course (end on 06/03) ENDOCRINE: No acute concerns Blood Glucose Monitoring (BGM) Goal: 100-150 HEMATOLOGIC: Chronic neutropenia - FUNDS DEVELOPMENT DIRECTOR filgrastim m/t// Hx of large granular lymphocytic leukemia Hematology cleared for filgrastim CBC daily VTE/DVT Prophylaxis: SCDs, subcutaneous heparin (switch to lovenox once JUANITO resolves) Blood conservation consult MUSCULOSKELETAL/ DERM: No acute concerns PT/OT Wound care PRN LINES / DRAINS / TUBES: LINES ALL Duration Urostomy Ileal conduit RLQ 20 days Peripheral Line Right Antecubital 22 Gauge <1 day GLOBAL ISSUES: Code Status: Full Code Analgesia: well controlled Sedation: N/A Delirium/Confusion Assessment Method for ICU (CAM-ICU): negative HOB Elevation: greater than 30 degrees Nutrition: PO DVT Prophylaxis: chemoprophylaxis with pneumatic compression devices Stress Ulcer Prophylaxis: not indicated at this time. Glycemic Control: well controlled Central Line Necessity Reviewed: N/A Knox: N/A Disposition: transfer to floor Patient's decisional capacity: has capacity to make decisions Communication with Patient/Family: No meeting held. Goals of Care: stabilize hemodynamic status and decrease pain and discomfort Patient was seen and discussed on rounds with MD Dhara Guardado DO Emergency Medicine PGY-1 Associated attestation - Pushpa Perez MD - 05/29/2023 4:54 PM EDT I saw and evaluated the patient today. I have reviewed the trainee note and agree. Renal US mild to moderate hydronephrosis HD stable - Abx day 5/10 days due to her complex Hx and her neutropenia end date 06/03 - PRN bowel reg - ok to transfer tot floor * Saul Hinson DO - 05/28/2023 6:17 AM EDT Images from the original note were not included. CCM - PROGRESS NOTE [facility] [place]-[address] [id number] Name: Linsey Estrella Location: [facility] [id number] Date: 05/28/2023 Date of admission: 05/26/2023 Hospital length of stay: 2 days Subjective PATIENT DESCRIPTION: The patient is a 73 year old female with history of bladder cancer, for which she had recent hysterectomy, bilateral salpingoophorectomy with cystectomy, ileal conduit in April of 2023. She also has a hx of leukemia in 1996, and neutropenia. She presented to [place] ED on 05/24 for one day of fevers (T max 104 F), chills, weakness, and feeling unwell; she was tachycardic and hypotensive on arrival, sepsis alert initiated. She was started on vancomycin and cefepime, and levophed to 12 mcg/min inaddition to fluid resuscitation. CT scan revealed severe right hydro/ureteralnephrosis. She also has a history of previous leukemia in the early , and has since been chronically neutropenic, for which she takes filgrastim 4 days per week. EVENTS OF NOTE: 05/25 early AM: transferred to [facility], urology evaluated and irrigated blockage in right ureteral stent with subsequent improvement in urine flow INTERIM HISTORY / SUBJECTIVE: Overnight: Linsey was stable overnight. She has remained off of levophed since mid- afternoon on 05/26. Her vitalsigns since were reviewed; her BP have been acceptable, with MAPs generally above 70 and consistently above 65. HR in the 70s-80s. She remained afebrile. No acute events overnight. She is tolerating her diet, getting up to use the bathroom, and having bowel movements. She denies abdominal pain, chest pain, shortness of breath, nausea, and chills this morning. Objective CONSTITUTIONAL DATA / OBJECTIVE: Vital Signs (Most Recent): Pulse: 83 (05/28/23 1300) BP: 108/60 (05/28/23 1200) Resp: 18 (05/28/23 1300) Temp: 35.9 C (96.7 F) (05/28/23 1200) SpO2: 100 % (05/28/23 1300) Vital Signs (Last 24 Hours): Pulse Av.7 Min: 70 Max: 91 No data recorded Most Recent Systolic BP Av.5 mmHg Min: 94 mmHg Max: 117 mmHg Most Recent Diastolic BP Av.5 mmHg Min: 50 mmHg Max: 77 mmHg Resp Av.4 Min: 18 Max: 31 Most Recent Temperature Av.6 C Min: 35.94 C Max: 37.11 C SpO2 Av.4 % Min: 96 % Max: 100 % Intake & Output Summary (Last 24 hours): Intake/Output Summary (Last 24 hours) at 05/28/2023 1323 Last data filed at 05/28/2023 1300 Gross per 24 hour Intake 4272.84 ml Output 1640 ml Net 2632.84 ml Net IO Since Admission: -56 mL [05/26/23 0704] Height & Weight: Height: 166.4 cm (5' 5.5") (05/26/23 0400) Weight: 60 kg (132 lb 4.4 oz) (05/28/23 0800) Weight change: Body mass index is 21.68 kg/m. Physical Examination: GENERAL: awake, alert, interactive, answering questions appropriately NEURO: no focal neuro deficits on exam HEENT: atraumatic, normocephalic, moist mucous membranes CARDIO: regular rate, regular rhythm, no murmurs PULM: clear to auscultation in all lung [place], adequate airway movement, no wheezing, rales or rhonchi, ABDOMEN: soft, non-tender, non-distended EXTREMITIES: warm, well-perfused MSK: no apparent joint deformities or swelling SKIN: warm, dry, intact Urostomy Ileal conduit RLQ (Active) Number of days: 20 Peripheral Line Left;Lower Arm 18 Gauge (Active) Number of days: 3 Peripheral Line Right Antecubital 20 Gauge (Active) Number of days: 0 Laboratory Values: reviewed. -- Brief labs below include the 7 most recent results over the past week. Blood Gas: Lab results within last 7 days (see chart for full results) Units 05/26/23 04305/25/232053 pH, Venous units 7.395 7.382 pCO2, Venous mmHg 28.3* 26.4* pO2, Venous mmHg 21.9* 58.0* Base Excess, Venous mmol/L -6.7* -8.2* Chemistry Panel: Lab results within last 7 days (see chart for full results) Units 05/28/23 0449 05/27/23 0438 05/26/23 04305/25/232053 Sodium mmol/L 139 136 134* 133* Potassium mmol/L 2.8* 3.5 4.3 4.0 Chloride mmol/L 108* 107 105 104 CO2 mmol/L 19* 19* 15* 12* BUN mg/dL 16 23* 39* 43* Creatinine mg/dL 1.3* 1.6* 1.8* 1.9* Estimated Glomerular Filtration Rate mL/min 44* 35* 29* 28* Glucose mg/dL 98 135* 123* 126* Calcium mg/dL 7.5* 7.8* 7.6* 8.6 Magnesium mg/dL 1.8 2.0 1.7 -- Phosphorus mg/dL 2.9 3.6 3.9 -- Anion Gap mmol/L 12 10 14 17* Complete Blood Count: Lab results within last 7 days (see chart for full results) Units 05/28/23 04405/27/2343705/25/232053 WBC K/uL 1.57* 2.46* 1.11* HGB g/dL 7.7* 8.4* 9.8* HCT % 24.3* 25.9* 30.7* PLT K/uL 238 324 346 MCV fL 89.0 89.0 90.0 Cardiac Studies: Lab results within last 7 days (see chart for full results) Units 05/25/232053 Troponin T, High Sensitivity ng/L 45* Coagulation Studies: Lab results within last 7 days (see chart for full results) Units 05/25/232053 Prothrombin Time seconds 14.2 INR 1.1 aPTT seconds 41* Liver Function Panel: Lab results within last 7 days (see chart for full results) Units 05/25/232053 Albumin g/dL 2.6* Protein g/dL 6.3 Bilirubin, Total mg/dL 0.4 AST U/L 10 ALT U/L 11 Alkaline Phosphatase U/L 70 Infectious Studies: Lab results within last 7 days (see chart for full results) Units 05/27/2343705/25/232053 Lactate, Whole Blood mmol/L -- 1.0 Procalcitonin ng/mL -- 11.53* Ferritin ng/mL 386* -- Cultures: reviewed. Recent Cultures (2 Weeks) 05/26/2023 05/26/2023 05/25/2023 05/25/2023 04/25/2023 01/28/2023 03/13/2022 01/31/2022 4:19 AM 3:28 AM 9:02 PM 8:54 PM 4:05 PM 10:55 AM 11:31 AM 10:15 AM BLOOD CULTURE GROWTH -- -- No growth to date No growth to date -- -- -- -- QUANT URINE CULTURE GROWTH >100,000 colonies/mL Escherichia coli >100,000 colonies/mL Enterococcus species -- -- No significant growth No significant growth No significant growth No significantgrowth >100,000 colonies/mL Enterococcus species 1000 to 9999 colonies/mL Yeast >100,000 colonies/mL Streptococcus anginosus group 10,000 to 100,000 colonies/mL Lactose fermenting gram negative bacilli Radiographic Studies: reviewed. CT ABD/PELVIS W IV CONTRAST - WO ORAL CONTRAST Result Date: 05/25/2023 IMPRESSION: 1. Status post cystectomy with a right [...] and are most likely postsurgical in nature. THIS DOCUMENT HAS BEEN ELECTRONICALLY SIGNED BY WENDY CÁRDENAS MD XR CHEST 1 VIEW Result Date: 05/25/2023 IMPRESSION: No dense parenchymal consolidation, pleural effusion, or pneumothorax. THIS DOCUMENT HAS BEEN ELECTRONICALLY SIGNED BY WENDY CÁRDENAS MD Assessment & Plan Active Problems: Septic shock (HCC) (POA: Unknown) Obstructive uropathy (POA: Unknown) POA = Present On Admission NEUROLOGIC: Pain/Fever control - currently afebrile and without pain Tylenol PRN for any fever/pain - has not used any doses PULMONARY / RESPIRATORY: No acute concerns On room air, doing well CARDIOVASCULAR: Hypotensive; septic shock Vasopressors: has been off levophed since yesterday afternoon NORepinephrine Dose (mcg/min): 0 mcg/min (05/27/23 1525) Maintenance fluids: isolyte at 100 cc/hr - can discontinue now that tolerating PO Received 1.5 L bolus during day/evening yesterday GASTROINTESTINAL / HEPATOBILIARY: Last Bowel Movement: 05/28/23 (05/28/23899) Stool Description: Medium;Liquid;Watery (05/28/23 09) Bowel Regimen: senna, colace Stress Ulcer Prophylaxis: n/a Diet / Nutrition: start regular diet RENAL / METABOLIC / FLUIDS: Recent cystectomy, right ileal conduit in April JUANITO Baseline Cr seems to be around 0.8 Serum creatinine: 1.3 mg/dL (H) 05/28/23 0449 Estimated creatinine clearance: 36.5 mL/min (A) Monitor electrolytes at least daily. Replete electrolytes as indicated Strict monitoring of fluid intake and output; daily weights Daily BMP Renal ultrasound on 05/28 to f/u right hydronephrosis per urology INFECTIOUS DISEASES: Urosepsis Follow results of urine cultures, blood cultures E. Coli and enterococcus on urine cultures Blood cultures no growth to date Continue zosyn - today is day 3, continue for 7-day course (end on 05/31) ENDOCRINE: No acute concerns Blood Glucose Monitoring (BGM) Goal: 100-150 Glycemic Control: Most recent: Last 24 hours: No data recorded Last 36 hours: No data recorded Last 48 hours: No data recorded HEMATOLOGIC: Chronic neutropenia - FUNDS DEVELOPMENT DIRECTOR filgrastim m/t// Hx of large granular lymphocytic leukemia Hematology cleared for filgrastim CBC daily VTE/DVT Prophylaxis: SCDs, subcutaneous heparin (switch to lovenox once JUANITO resolves) Blood conservation consult MUSCULOSKELETAL/ DERM: No acute concerns PT/OT Wound care PRN LINES / DRAINS / TUBES: LINES ALL Duration Urostomy Ileal conduit RLQ 19 days Peripheral Line Left;Lower Arm 18 Gauge 3 days Peripheral Line Right Antecubital 20 Gauge <1 day List of consulted services: ADULT PHYSICAL THERAPY CONSULT IP ADULT OCCUPATIONAL THERAPY CONSULT IP CARE MANAGEMENT CONSULT IP UROLOGY CONSULT IP BLOOD MANAGEMENT CONSULT IP ADULT PHYSICAL THERAPY CONSULT IP GLOBAL ISSUES: Code Status: Full Code Analgesia: protocol with control Sedation: N/A Delirium/Confusion Assessment Method for ICU (CAM-ICU): CAM-ICU negative HOB Elevation: greater than 30 degrees Nutrition: clear liquid diet DVT Prophylaxis: chemoprophylaxis with pneumatic compression devices Stress Ulcer Prophylaxis: not indicated Glycemic Control: controlled - protocol Oral hygiene every four hours Chlorhexidine mouth rinse every twelve hours Central Line Necessity Reviewed: N/A Knox: reviewed and needed Disposition: keep in ICU, likely downgrade to med-surg on 05/28 Patient's decisional capacity: has capacity to make decisions Communication with Patient/Family: No meeting held. Goals of Care: stabilize hemodynamic status Patient was discussed with Dr. Perez. Saul Hinson DO Resident Physician Associated attestation - Pushpa Perez MD - 05/28/2023 5:30 PM EDT Brief synopsis: Ms. Estrella presented on 05/26/2023 with septic shock 2/2 a UTI 2/2 nephrolithiasis causing obstruction s/p flushing with resolution of obstruction Problems/Injury Complex: Nephrolithiasis Septic shock UTI Course complicated by: None Comorbidities: Past Medical History: Diagnosis Date Inguinal hernia 02/18/1999 Surgical repair Kidney stone on left side 02/19/1996 Leukemia (HCC) Large granular lymphocytic leukemia Neutropenia (HCC) PONV (postoperative nausea and vomiting) Last 24 hrs: Doing well, no issues, off pressors as of yesterday afternoon, Urine 1.5 L +2.9 on the day examines euvolemic this AM. WBC 1.5 Hgb 7.7 K 2.8 Cr 1.3 (1.8) Focused Plan: - monitor hemodynamics x12 more hrs in the ICU - Urology recommendations: Renal US tmrw - Entero and Ecoli complicated UTI - cont Zosyn 04/24 - FUNDS DEVELOPMENT DIRECTOR filgrastin - Heparin for DTV prophy considering JUANITO - PT/OT Concurrent plan as below. I performed an evaluation of the patient on 05/28/2023 and I have discussed the patient's management with the advanced provider / trainee. Please refer to the resident note for the complete documented findings and plan of care. I have personally provided 45 minutes of critical care time exclusive of time spent on separately billable procedures. This time includes review of laboratory data, radiology results and monitoring for potential decompensation. Any interventions performed are as documented below. Upon my evaluation, this patient had a high probability of imminent or life- threatening deterioration due to diagnostic services - overwhelming infection and therapeutic services - volume resuscitation, frequent vasoactive agent adjustments, which required my direct attention, intervention, and personal management. I agree with the trainee's note which was reviewed and edited in detail on rounds per my direction. Edelmira Perez Surgical Critical Care / EGS / Trauma * Tika Caballero [facility] - 05/27/2023 2:22 PM EDT PHARMACY HOME MEDICATION VERIFICATION [address] [address] Name: Linsey Estrella Location: [place] [id number] Date: 05/27/2023 Time: 2:10 PM Hospital Problem List: Patient Active Problem List Diagnosis Code Neutropenia [...] Chronic kidney disease, stage 3a (HCC) N18.31 Septic shock (HCC) A41.9, R65.21 Obstructive uropathy N13.9 Medications: Note that completed medications (per the MAR) continue to display for 24 hours. Ordered meds to be given in the future also display. Current Facility-Administered Medications Medication Dose Route Frequency Provider Filgrastim-sndz (Zarxio) inj 480 mcg 480 mcg Subcutaneous Daily 1600 Saul Hinson DO [START ON 05/28/2023] [facility] medication (don't administer before Rx verify) Does Not Apply ;;;F Saul Hinson DO Acetaminophen (Tylenol) tab 650 mg 650 mg Oral Q4H PRN Tiffanie Loredo PA-C Calcium Carbonate 500 mg + Vitamin D 5 mcg (200 units) per tab 1 Tablet Oral Daily Noon Tiffanie Loredo PA-C chlorHEXIDINE (Periogard) 0.12 % oral rinse 15 mL 15 mL Oral mucosal membrane BID (0800,1999) Tiffanie Loredo PA-C Docusate Sodium (Colace) cap 100 mg 100 mg Oral BID(AM/PM) Ivan Flynn MD fluticasone (Flonase) nasal inhaler 2 [place] 2 [place] Each Nostril Daily(AM) Tiffanie Loredo PA-C hEParin inj 5,000 Units 5,000 Units Subcutaneous Q8H Ivan Flynn MD isolyte-S pH 7.4 infusion Intravenous Continuous Tiffanie Loredo PA-C Loratadine (Claritin) tab 10 mg 10 mg Oral HS Tiffanie Loredo PA-C melatonin tab 3 mg 3 mg Oral HS Saul Hinson DO NORepinephrine (Levophed) 4 mg in 250 ml D5W STANDARD CONCENTRATION 16 mcg/ml 0- 30 mcg/min Peripheral IV Titrate Tiffanie Loredo PA-C Oral Hygiene: Mouth Swab with dentifrice Oral Q4H Limited (00;04;12;16) Tiffanie Loredo PA-C Piperacillin-Tazobactam (Zosyn) 4.5 g in 100 mL NSS ivpb (FOUR hour infusion) 4.5 g IV Piggyback Q8H Now Tiffanie Loredo PA-C Polyethylene Glycol 3350 (Miralax) oral powder 17 g 17 g Oral HS Tiffanie Loredo PA-C senna (Senokot) 2 Tablet 2 Tablet Oral Daily(AM) Tiffanie Loredo PA-C sodium chloride 0.9 % flush peripheral rossana 3 mL 3 mL IV Push Q8H Tiffanie Loredo PA-C Allergies: Penicillins, Pollen, and Ragweed Medication to be verified: Filgrastim-sndz (Zarxio) inj 480 mcg Exp: 02/2025 Temperature monitor WNL for medication, provided from cooler Quantity Received: 1 Pharmacist verification: This medication has been physically verified by Tika Caballero RPh as above and the nurses may administer this medication to the patient as indicated by the orders written by the provider. Nursing Nut Processing Supervisor: CHRISTIAN Sevilla Pharmacist Recommendations/Notes: Reviewed with heme/onc pharmacist - can use formulary filgastrim while patient is admitted. Dose was already opened by patient/family. Will use patient's own dose today so that it is not wasted. Requested provider to order remaining doses. * Shravan Hudson MD - 05/27/2023 7:21 AM EDT PROGRESS NOTE - Urology [facility] [place]-[address] [address] Name: Linsey Estrella Location: [facility] [id number] Date: 05/27/2023 Time: 7:22 AM SUBJECTIVE: Afebrile, vitals stable patient was restarted on vasopressor overnight. Has been titrated down this morning to 2mcg of norepi. Feels tired but otherwise comfortable without complaints. Having bowel movement yesterday Output: Urostomy: 2290cc BM x3 PHYSICAL EXAMINATION: Most Recent Vital Signs: BP: 97 mmHg/54 mmHg (05/27/23599) Pulse: 75 (05/27/23599) Temp: 37.22 C (05/27/23 0400) Temp Summary: Temp Min: 36.1 C (97 F) Max: 37.3 C (99.1 F) SpO2: 99 % (05/27/23699) O2 flow rate: Supplemental O2 Delivery: Room Air, None (05/27/23699) Vital Signs Last 24 Hours: Systolic BP: Most Recent Systolic BP Av.7 mmHg Min: 81 mmHg Max: 121 mmHg Temperature: Most Recent Temperature Av.8 C Min: 36.11 C Max: 37.28 C Pulse: Pulse Av.6 Min: 68 Max: 94 Respirations: Resp Av.1 Min: 11 Max: 31 SpO2: SpO2 Av.2 % Min: 68 % Max: 100 % Intake/Output Summary (Last 24 hours) at 05/27/2023721 Last data filed at 05/27/2023 0700 Gross per 24 hour Intake 3716.8 ml Output 2205 ml Net 1511.8 ml General: awake, alert and responsive Heart:: Regular rate Chest: Normal WOB Abdomen: soft, NTND. Extremities: no deformities. No lower extremity edema or tendnerness : RLQ urostomy pink and healthy. Stent x1 in place. Clear yellow urine CURRENT HOSPITAL MEDICATIONS: Note that completed medications (per the APR) continue to display for 24 hours. Ordered medicationsto be given in the future also display. Current Facility-Administered Medications Medication Dose Route Frequency Provider Acetaminophen (Tylenol) tab 650 mg 650 mg Oral Q4H PRN Tiffanie Loredo PA-C Calcium Carbonate 500 mg + Vitamin D 5 mcg (200 units) per tab 1 Tablet Oral Daily Noon Tiffanie Loredo PA-C chlorHEXIDINE (Periogard) 0.12 % oral rinse 15 mL 15 mL Oral mucosal membrane BID (0800,1999) Tiffanie Loredo PA-C Docusate Sodium (Colace) cap 100 mg 100 mg Oral BID(AM/PM) Ivan Flynn MD fluticasone (Flonase) nasal inhaler 2 [place] 2 [place] Each Nostril Daily(AM) Tiffanie Loredo PA-C hEParin inj 5,000 Units 5,000 Units Subcutaneous Q8H Ivan Flynn MD isolyte-S pH 7.4 infusion Intravenous Continuous Tiffanie Loredo PA-C Loratadine (Claritin) tab 10 mg 10 mg Oral HS Tiffanie Loredo PA-C melatonin tab 3 mg 3 mg Oral HS Saul Hinson DO NORepinephrine (Levophed) 4 mg in 250 ml D5W STANDARD CONCENTRATION 16 mcg/ml 0- 30 mcg/min Peripheral IV Titrate Tiffanie Loredo PA-C Oral Hygiene: Mouth Swab with dentifrice Oral Q4H Limited (00;04;12;16) Tiffanie Loredo PA-C Piperacillin-Tazobactam (Zosyn) 4.5 g in 100 mL NSS ivpb (FOUR hour infusion) 4.5 g IV Piggyback Q8H Now Tiffanie Loredo PA-C Polyethylene Glycol 3350 (Miralax) oral powder 17 g 17 g Oral HS Tiffanie Loredo PA-C senna (Senokot) 2 Tablet 2 Tablet Oral Daily(AM) Tiffanie Loredo PA-C sodium chloride 0.9 % flush peripheral rossana 3 mL 3 mL IV Push Q8H Tiffanie Loredo PA-C LABS: CHEMISTRY: BUN, Creatinine, GFR Estimated, Sodium, Potassium, Chloride, Carbon Dioxide, Glucose, Calcium (see below for most recent value): Lab Results Component Value Date/Time BUN 23 (H) 05/27/2023 04:38 AM BUN 16 10/27/2019 10:00 AM CREAT 1.6 (H) 05/27/2023 04:38 AM CREAT 0.9 10/27/2019 10:00 AM GFRESTIMATED >60.0 10/27/2019 10:00 AM NA 136 05/27/2023 04:38 AM NA 143 10/27/2019 10:00 AM POTASSIUM 3.5 05/27/2023 04:38 AM POTASSIUM 4.2 10/27/2019 10:00 AM CL 107 05/27/2023 04:38 AM CL 105 10/27/2019 10:00 AM CO2 19 (L) 05/27/2023 04:38 AM CO2 28 10/27/2019 10:00 AM CA 7.8 (L) 05/27/2023 04:38 AM CA 9.3 10/27/2019 10:00 AM BLOOD COUNT: WBC, Hgb, Platelets (see below for most recent value): Lab Results Component Value Date/Time WBC 2.46 (L) 05/27/2023 04:38 AM WBC 4.03 11/13/2019 11:29 AM HGB 8.4 (L) 05/27/2023 04:38 AM HGB 13.6 12/08/2021 12:00 AM HGB 13.6 12/01/2021 12:00 AM PLT 324 05/27/2023 04:38 AM PLT 313 11/13/2019 11:29 AM CULTURES: Lab Results Component Value Date/Time CULTURE LESS THAN 10,000 COLONIES/ML MIXED NORMAL LÓPEZ 10/27/2019 10:12 AM IMAGING: CT ABD/PELVIS W IV CONTRAST - WO ORAL CONTRAST Result Date: 05/25/2023 IMPRESSION: 1. Status post cystectomy with a right [...] and are most likely postsurgical in nature. THIS DOCUMENT HAS BEEN ELECTRONICALLY SIGNED BY WENDY CÁRDENAS MD XR CHEST 1 VIEW Result Date: 05/25/2023 IMPRESSION: No dense parenchymal consolidation, pleural effusion, or pneumothorax. THIS DOCUMENT HAS BEEN ELECTRONICALLY SIGNED BY WENDY CÁRDENAS MD ASSESSMENT: 73 M history of upper tract urothelial carcinoma status post left laparoscopic nephroureterectomy in 2020. She also has bladder cancer status post radical cystectomy and ileal conduit on 05/08/2023. She was readmitted to ICU for UTI and urosepsis. Clinically improving with decreasing vasopressor requirements PLAN: - no surgical intervention at this time, patient is clinically improved. Urine output is adequate - continue broad-spectrum antibiotics and follow-up culture from Ileal conduit as well as ureteral stent - repeat renal ultrasound on Saturday Patient to be discussed with Dr. Alicia Hudson MD Resident [facility] [phone] Associated attestation - Saul Vargas MD - 05/29/2023 8:25 AM EDT I saw and evaluated the patient 05/27/2023. I have reviewed the trainee note and agree. * Saul Hinson DO - 05/27/2023 6:37 AM EDT Images from the original note were not included. CCM - PROGRESS NOTE [address] [id number] Name: Linsey Estrella Location: [facility] [place] [id number] Date: 05/27/2023 Date of admission: 05/26/2023 Hospital length of stay: 1 days Subjective PATIENT DESCRIPTION: The patient is a 73 year old female with history of bladder cancer, for which she had recent hysterectomy, bilateral salpingoophorectomy with cystectomy, ileal conduit in April of 2023. She also has a hx of leukemia in 1996, and neutropenia. She presented to [place] ED on 05/24 for one day of fevers (T max 104 F), chills, weakness, and feeling unwell; she was tachycardic and hypotensive on arrival, sepsis alert initiated. She was started on vancomycin and cefepime, and levophed to 12 mcg/min inaddition to fluid resuscitation. CT scan revealed severe right hydro/ureteralnephrosis. She also has a history of previous leukemia in the early , and has since been chronically neutropenic, for which she takes filgrastim 4 days per week. EVENTS OF NOTE: 05/25 early AM: transferred to [facility], urology evaluated and irrigated blockage in right ureteral stent with subsequent improvement in urine flow INTERIM HISTORY / SUBJECTIVE: Overnight: This morning, Linsey was evaluated at bedside. She said she was feeling much better compared to yesterday. She is no longer experiencing any chills, or subjective fevers. She denies abdominal pain, chest pain, cough, or shortness of breath. Linsey had a decent night of rest. Her vitals from overnight were reviewed, she was hypotensive at times requiring her to be back on levophed, which was running at a max of 10, but this morning on exam she was on 2 of levophed with a MAP of 71.She was afebrile, and making plenty of urine (2.5 L over past 24 hours). She denies experiencing chills, no nausea or vomit overnight. Objective CONSTITUTIONAL DATA / OBJECTIVE: Vital Signs (Most Recent): Pulse: 74 (05/27/23 1000) BP: 101/56 (05/27/23 1000) Resp: 22 (05/27/23 1000) Temp: 36.7 C (98.1 F) (05/27/23 1000) SpO2: 99 % (05/27/23 1000) Vital Signs (Last 24 Hours): Pulse Av Min: 68 Max: 92 No data recorded Most Recent Systolic BP Av.1 mmHg Min: 81 mmHg Max: 121 mmHg Most Recent Diastolic BP Av.5 mmHg Min: 43 mmHg Max: 80 mmHg Resp Av.7 Min: 11 Max: 32 Most Recent Temperature Av C Min: 36.72 C Max: 37.28 C SpO2 Av.8 % Min: 68 % Max: 100 % Intake & Output Summary (Last 24 hours): Intake/Output Summary (Last 24 hours) at 05/27/2023 1430 Last data filed at 05/27/2023 1200 Gross per 24 hour Intake 3044.98 ml Output 1710 ml Net 1334.98 ml Net IO Since Admission: -56 mL [05/26/23 0704] Height & Weight: Height: 166.4 cm (5' 5.5") (05/26/23 0400) Weight: 57.1 kg (125 lb 14.1 oz) (05/26/23 0330) Weight change: Body mass index is 20.63 kg/m. Physical Examination: GENERAL: awake, alert, interactive, answering questions appropriately NEURO: no focal neuro deficits on exam HEENT: atraumatic, normocephalic, moist mucous membranes CARDIO: regular rate, regular rhythm, no murmurs PULM: clear to auscultation in all lung san[place], adequate airway movement, no wheezing, rales or rhonchi, ABDOMEN: soft, non-tender, non-distended; ileal conduit with bag draining clear- yellow urine EXTREMITIES: warm, well-perfused MSK: no apparent joint deformities or swelling SKIN: warm, dry, intact Urostomy Ileal conduit RLQ (Active) Number of days: 19 Peripheral Line Left;Lower Arm 18 Gauge (Active) Number of days: 2 Peripheral Line Left;Lower Arm 20 Gauge (Active) Number of days: 2 Laboratory Values: reviewed. -- Brief labs below include the 7 most recent results over the past week. Blood Gas: Lab results within last 7 days (see chart for full results) Units 05/26/2343305/25/232053 pH, Venous units 7.395 7.382 pCO2, Venous mmHg 28.3* 26.4* pO2, Venous mmHg 21.9* 58.0* Base Excess, Venous mmol/L -6.7* -8.2* Chemistry Panel: Lab results within last 7 days (see chart for full results) Units 05/27/23 0438 05/26/23 04305/25/232053 Sodium mmol/L 136 134* 133* Potassium mmol/L 3.5 4.3 4.0 Chloride mmol/L 107 105 104 CO2 mmol/L 19* 15* 12* BUN mg/dL 23* 39* 43* Creatinine mg/dL 1.6* 1.8* 1.9* Estimated Glomerular Filtration Rate mL/min 35* 29* 28* Glucose mg/dL 135* 123* 126* Calcium mg/dL 7.8* 7.6* 8.6 Magnesium mg/dL 2.0 1.7 -- Phosphorus mg/dL 3.6 3.9 -- Anion Gap mmol/L 10 14 17* Complete Blood Count: Lab results within last 7 days (see chart for full results) Units 05/27/2343705/25/232053 WBC K/uL 2.46* 1.11* HGB g/dL 8.4* 9.8* HCT % 25.9* 30.7* PLT K/uL 324 346 MCV fL 89.0 90.0 Cardiac Studies: Lab results within last 7 days (see chart for full results) Units 05/25/232053 Troponin T, High Sensitivity ng/L 45* Coagulation Studies: Lab results within last 7 days (see chart for full results) Units 05/25/232053 Prothrombin Time seconds 14.2 INR 1.1 aPTT seconds 41* Liver Function Panel: Lab results within last 7 days (see chart for full results) Units 05/25/232053 Albumin g/dL 2.6* Protein g/dL 6.3 Bilirubin, Total mg/dL 0.4 AST U/L 10 ALT U/L 11 Alkaline Phosphatase U/L 70 Infectious Studies: Lab results within last 7 days (see chart for full results) Units 05/27/2343705/25/232053 Lactate, Whole Blood mmol/L -- 1.0 Procalcitonin ng/mL -- 11.53* Ferritin ng/mL 386* -- Cultures: reviewed. Recent Cultures (2 Weeks) 05/26/2023 05/26/2023 05/25/2023 05/25/2023 04/25/2023 01/28/2023 03/13/2022 01/31/2022 4:19 AM 3:28 AM 9:02 PM 8:54 PM 4:05 PM 10:55 AM 11:31 AM 10:15 AM BLOOD CULTURE GROWTH -- -- No growth to date No growth to date -- -- -- -- QUANT URINE CULTURE GROWTH >100,000 colonies/mL Escherichia coli >100,000 colonies/mL Enterococcus species -- -- No significant growth No significant growth No significant growth No significantgrowth >100,000 colonies/mL Enterococcus species 1000 to 9999 colonies/mL Yeast 10,000 to 100,000 colonies/mL Lactose fermenting gram negative bacilli Radiographic Studies: reviewed. CT ABD/PELVIS W IV CONTRAST - WO ORAL CONTRAST Result Date: 05/25/2023 IMPRESSION: 1. Status post cystectomy with a right [...] and are most likely postsurgical in nature. THIS DOCUMENT HAS BEEN ELECTRONICALLY SIGNED BY WENDY CÁRDENAS MD XR CHEST 1 VIEW Result Date: 05/25/2023 IMPRESSION: No dense parenchymal consolidation, pleural effusion, or pneumothorax. THIS DOCUMENT HAS BEEN ELECTRONICALLY SIGNED BY WENDY CÁRDENAS MD Assessment & Plan Active Problems: Septic shock (HCC) (POA: Unknown) Obstructive uropathy (POA: Unknown) POA = Present On Admission NEUROLOGIC: Pain/Fever control - currently afebrile and without pain Tylenol PRN for any fever/pain - has not used any doses PULMONARY / RESPIRATORY: No acute concerns On room air, doing well CARDIOVASCULAR: Hypotensive; septic shock Vasopressors: wean as able NORepinephrine Dose (mcg/min): 2 mcg/min (05/27/23 1116) Maintenance fluids: isolyte at 100 cc/hr Give 1L bolus isolyte Consider midodrine tomorrow 05/27 GASTROINTESTINAL / HEPATOBILIARY: Last Bowel Movement: 05/27/23 (05/27/23 0300) Stool Description: Large;Liquid;Loose;Watery (05/27/23 1200) Bowel Regimen: senna, colace Stress Ulcer Prophylaxis: n/a Diet / Nutrition: start regular diet RENAL / METABOLIC / FLUIDS: Recent cystectomy, right ileal conduit in April JUANITO Baseline Cr seems to be around 0.8 Serum creatinine: 1.6 mg/dL (H) 05/27/23 0438 Estimated creatinine clearance: 29.1 mL/min (A) Monitor electrolytes at least daily. Replete electrolytes as indicated Strict monitoring of fluid intake and output; daily weights Daily weights Urology following, no plans for OR Daily BMP INFECTIOUS DISEASES: Urosepsis Follow results of urine cultures, blood cultures E. 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 filgrastim m/t// Hx of large granular lymphocytic leukemia Hematology cleared for filgrastim CBC daily Talk about her stimulating factor VTE/DVT Prophylaxis: subcutaneous heparin Blood conservation consult MUSCULOSKELETAL/ DERM: No acute concerns PT/OT Wound care PRN LINES / DRAINS / TUBES: LINES ALL Duration Urostomy Ileal conduit RLQ 18 days Peripheral Line Left;Lower Arm 18 Gauge 2 days Peripheral Line Left;Lower Arm 20 Gauge 2 days List of consulted services: ADULT PHYSICAL THERAPY CONSULT IP ADULT OCCUPATIONAL THERAPY CONSULT IP CARE MANAGEMENT CONSULT IP UROLOGY CONSULT IP BLOOD MANAGEMENT CONSULT IP GLOBAL ISSUES: Code Status: Full Code Analgesia: protocol with control Sedation: N/A Delirium/Confusion Assessment Method for ICU (CAM-ICU): CAM-ICU negative HOB Elevation: greater than 30 degrees Nutrition: clear liquid diet DVT Prophylaxis: chemoprophylaxis with pneumatic compression devices Stress Ulcer Prophylaxis: not indicated Glycemic Control: controlled - protocol Oral hygiene every four hours Chlorhexidine mouth rinse every twelve hours Central Line Necessity Reviewed: N/A [place]: reviewed and needed Disposition: keep in ICU Patient's decisional capacity: has capacity to make decisions Communication with Patient/Family: No meeting held. Goals of Care: stabilize hemodynamic status Patient was discussed with Dr. Perez. Saul Hinson DO Resident Physician Associated attestation - Pushpa Perez MD - 05/27/2023 5:05 PM EDT Brief synopsis: Ms. Estrella presented on 05/26/2023 with septic shock 2/2 a UTI 2/2 nephrolithiasis causing obstruction s/p flushing with resolution of obstruction Problems/Injury Complex: Nephrolithiasis Septic shock UTI Course complicated by: None Comorbidities: Past Medical History: Diagnosis Date Inguinal hernia 02/18/1999 Surgical repair Kidney stone on left side 02/19/1996 Leukemia (HCC) Large granular lymphocytic leukemia Neutropenia (HCC) PONV (postoperative nausea and vomiting) Last 24 hrs: Shock improving Significant urine output. Hypovolemic on exam. Focused Plan: Volume resuscitation Regular diet Continue close hemodynamic monitoring. Concurrent plan as below. I performed an evaluation of the patient on 05/27/2023 and I have discussed the patient's management with the advanced provider / trainee. Please refer to the resident note for the complete documented findings and plan of care. I have personally provided 45 minutes of critical care time exclusive of time spent on separately billable procedures. This time includes review of laboratory data, radiology results and monitoring for potential decompensation. Any interventions performed are as documented below. Upon my evaluation, this patient had a high probability of imminent or life- threatening deterioration due to diagnostic services - overwhelming infection and therapeutic services - volume resuscitation, frequent vasoactive agent adjustments, which required my direct attention, intervention, and personal management. I agree with the trainee's note which was reviewed and edited in detail on rounds per my direction. Edelmira Perez Surgical Critical Care / EGS / Trauma * Saul Hinson, - 05/26/2023 7:04 AM EDT CCM - PROGRESS NOTE [facility] [place] [id number] Name: Linsey Estrella Location: [facility] [place] [id number] Date: 05/26/2023 Date of admission: 05/26/2023 Hospital length of stay: 0 days Subjective PATIENT DESCRIPTION: The patient is a 73 year old female with history of bladder cancer, for which she had recent hysterectomy, bilateral salpingoophorectomy with cystectomy, ileal conduit in April of 2023. She also has a hx of leukemia in 1996, and neutropenia. She presented to [place] ED on 05/24 for one day of fevers (T max 104 F), chills, weakness, and feeling unwell; she was tachycardic and hypotensive on arrival, sepsis alert initiated. She was started on vancomycin and cefepime, and levophed to 12 mcg/min inaddition to fluid resuscitation. CT scan revealed severe right hydro/ureteralnephrosis. She also has a history of previous leukemia in the early , and has since been chronically neutropenic, for which she takes filgrastim 4 days per week. EVENTS OF NOTE: 05/25 early AM: transferred to [facility] [place], urology evaluated and irrigated blockage in right ureteral stent with subsequent improvement in urine flow INTERIM HISTORY / SUBJECTIVE: Overnight: This morning, Linsey was evaluated at bedside. She said she was feeling much better compared to yesterday. She is no longer experiencing any chills, or subjective fevers. She denies abdominal pain, chest pain, cough, or shortness of breath. Objective CONSTITUTIONAL DATA / OBJECTIVE: Vital Signs (Most Recent): Pulse: 77 (05/26/23 1200) BP: 103/53 (05/26/23 1230) Resp: 24 (05/26/23 1200) Temp: 36.4 C (97.5 F) (05/26/23 1200) SpO2: 100 % (05/26/23 1200) Vital Signs (Last 24 Hours): Pulse Av.7 Min: 74 Max: 115 No data recorded Most Recent Systolic BP Av.1 mmHg Min: 97 mmHg Max: 111 mmHg Most Recent Diastolic BP Av.1 mmHg Min: 46 mmHg Max: 63 mmHg Resp Av.6 Min: 15 Max: 33 Most Recent Temperature Av.8 C Min: 36.39 C Max: 37.22 C SpO2 Av.6 % Min: 97 % Max: 100 % Intake & Output Summary (Last 24 hours): Intake/Output Summary (Last 24 hours) at 05/26/2023 1253 Last data filed at 05/26/2023 1200 Gross per 24 hour Intake 1650.43 ml Output 1570 ml Net 80.43 ml Net IO Since Admission: -56 mL [05/26/23 0704] Height & Weight: Height: 166.4 cm (5' 5.5") (05/26/23 0400) Weight: 57.1 kg (125 lb 14.1 oz) (05/26/23 033) Weight change: Body mass index is 20.63 kg/m. Physical Examination: GENERAL: awake, alert, interactive, answering questions appropriately NEURO: no focal neuro deficits on exam HEENT: atraumatic, normocephalic, moist mucous membranes CARDIO: regular rate, regular rhythm, no murmurs PULM: clear to auscultation in all lung [place], adequate airway movement, no wheezing, rales or rhonchi, ABDOMEN: soft, non-tender, non-distended; ileal conduit with bag draining clear- yellow urine EXTREMITIES: warm, well-perfused MSK: no apparent joint deformities or swelling SKIN: warm, dry, intact Urostomy Ileal conduit RLQ (Active) Number of days: 18 Peripheral Line Left;Lower Arm 18 Gauge (Active) Number of days: 1 Peripheral Line Left;Lower Arm 20 Gauge (Active) Number of days: 1 Laboratory Values: reviewed. -- Brief labs below include the 7 most recent results over the past week. Blood Gas: Lab results within last 7 days (see chart for full results) Units 05/26/2343305/25/232053 pH, Venous units 7.395 7.382 pCO2, Venous mmHg 28.3* 26.4* pO2, Venous mmHg 21.9* 58.0* Base Excess, Venous mmol/L -6.7* -8.2* Chemistry Panel: Lab results within last 7 days (see chart for full results) Units 05/26/2343205/25/232053 Sodium mmol/L 134* 133* Potassium mmol/L 4.3 4.0 Chloride mmol/L 105 104 CO2 mmol/L 15* 12* BUN mg/dL 39* 43* Creatinine mg/dL 1.8* 1.9* Estimated Glomerular Filtration Rate mL/min 29* 28* Glucose mg/dL 123* 126* Calcium mg/dL 7.6* 8.6 Magnesium mg/dL 1.7 -- Phosphorus mg/dL 3.9 -- Anion Gap mmol/L 14 17* Complete Blood Count: Lab results within last 7 days (see chart for full results) Units 05/25/232053 WBC K/uL 1.11* HGB g/dL 9.8* HCT % 30.7* PLT K/uL 346 MCV fL 90.0 Cardiac Studies: Lab results within last 7 days (see chart for full results) Units 05/25/232053 Troponin T, High Sensitivity ng/L 45* Coagulation Studies: Lab results within last 7 days (see chart for full results) Units 05/25/232053 Prothrombin Time seconds 14.2 INR 1.1 aPTT seconds 41* Liver Function Panel: Lab results within last 7 days (see chart for full results) Units 05/25/232053 Albumin g/dL 2.6* Protein g/dL 6.3 Bilirubin, Total mg/dL 0.4 AST U/L 10 ALT U/L 11 Alkaline Phosphatase U/L 70 Infectious Studies: Lab results within last 7 days (see chart for full results) Units 05/25/232053 Lactate, Whole Blood mmol/L 1.0 Procalcitonin ng/mL 11.53* Cultures: reviewed. Recent Cultures (2 Weeks) 05/25/2023 05/25/2023 04/25/2023 01/28/2023 03/13/2022 01/31/2022 05/29/2021 02/01/2021 9:02 PM 8:54 PM 4:05 PM 10:55 AM 11:31 AM 10:15 AM 11:09 AM 9:40 AM BLOOD CULTURE GROWTH No growth to date No growth to date -- -- -- -- -- -- QUANT URINE CULTURE GROWTH -- -- No significant growth No significant growth No significant growth No significant growth No significant growth No significant growth Radiographic Studies: reviewed. CT ABD/PELVIS W IV CONTRAST - WO ORAL CONTRAST Result Date: 05/25/2023 IMPRESSION: 1. Status post cystectomy with a right [...] and are most likely postsurgical in nature. THIS DOCUMENT HAS BEEN ELECTRONICALLY SIGNED BY WENDY CÁRDENAS MD XR CHEST 1 VIEW Result Date: 05/25/2023 IMPRESSION: No dense parenchymal consolidation, pleural effusion, or pneumothorax. THIS DOCUMENT HAS BEEN ELECTRONICALLY SIGNED BY WENDY CÁRDENAS MD Assessment & Plan Active Problems: Septic shock (HCC) (POA: Unknown) Obstructive uropathy (POA: Unknown) POA = Present On Admission NEUROLOGIC: Pain/Fever control - currently afebrile and without pain Tylenol PRN for any fever/pain PULMONARY / RESPIRATORY: No acute concerns On room air, doing well CARDIOVASCULAR: Hypotensive; septic shock Vasopressors: wean as able NORepinephrine Dose (mcg/min): 4 mcg/min (04/07/24 1145) Maintenance fluids: isolyte at 100 cc/hr GASTROINTESTINAL / HEPATOBILIARY: Last Bowel Movement: 05/25/23 (05/26/23 0300) Bowel Regimen: senna, colace Stress Ulcer Prophylaxis: n/a Diet / Nutrition: clears for today RENAL / METABOLIC / FLUIDS: Recent cystectomy, right ileal conduit in April JUANITO Baseline Cr seems to be around 0.8 Serum creatinine: 1.8 mg/dL (H) 05/26/23 0433 Estimated creatinine clearance: 25.8 mL/min (A) Monitor electrolytes at least daily. Replete electrolytes as indicated Strict monitoring of fluid intake and output; daily weights Daily weights Urology following, performed stent intervention overnight and got urine flowing again No plans for OR Maintenace fluids 100 cc/hr of isolyte Daily BMP INFECTIOUS DISEASES: Urosepsis Follow results of urine cultures, blood cultures Continue vancomycin and zosyn Discontinue vanc, keep zosyn ENDOCRINE: No acute concerns Blood Glucose Monitoring (BGM) Goal: 100-150 Glycemic Control: Most recent: Last 24 hours: No data recorded Last 36 hours: No data recorded Last 48 hours: No data recorded HEMATOLOGIC: 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 Hematology cleared for filgrastim CBC daily Talk about her stimulating factor VTE/DVT Prophylaxis: subcutaneous heparin Blood conservation consult MUSCULOSKELETAL/ DERM: No acute concerns PT/OT Wound care PRN LINES / DRAINS / TUBES: LINES ALL Duration Urostomy Ileal conduit RLQ 17 days Peripheral Line Left;Lower Arm 18 Gauge 1 day Peripheral Line Left;Lower Arm 20 Gauge 1 day List of consulted services: ADULT PHYSICAL THERAPY CONSULT IP ADULT OCCUPATIONAL THERAPY CONSULT IP CARE MANAGEMENT CONSULT IP UROLOGY CONSULT IP BLOOD MANAGEMENT CONSULT IP GLOBAL ISSUES: Code Status: Full Code Analgesia: protocol with control Sedation: N/A Delirium/Confusion Assessment Method for ICU (CAM-ICU): CAM-ICU negative HOB Elevation: greater than 30 degrees Nutrition: clear liquid diet DVT Prophylaxis: chemoprophylaxis with pneumatic compression devices Stress Ulcer Prophylaxis: not indicated Glycemic Control: controlled - protocol Oral hygiene every four hours Chlorhexidine mouth rinse every twelve hours Central Line Necessity Reviewed: N/A [place]: reviewed and needed Disposition: keep in ICU Patient's decisional capacity: has capacity to make decisions Communication with Patient/Family: No meeting held. Goals of Care: stabilize hemodynamic status Patient was discussed with Dr. Patel. Saul Hinson DO Resident Physician Associated attestation - Lonny Patel MD - 05/26/2023 2:49 PM EDT I saw and evaluated the patient today. I have reviewed the trainee note and agree. Active Problems: Septic shock (HCC) (POA: Unknown) Obstructive uropathy (POA: Unknown) POA = Present On Admission Awake/ interactive this AM, sensorium clear. Denies pain- tylenol prn. Steadily weaning pressor requirement, NE down to 2 mcg/min at current. U/o 100-200/hr, grossly euvolemic. JUANITO on admit related to blocked ureteral stent (corrected)- trend renal indices. Breathing comfortably per RA. Abdomen soft, nontender; ileal conduit healthy- trial clears. Bowel regimen. SQH as VTE prophylaxis. Hgb 8.1 (9.8)- trend; blood conserv protocol UA dirty, cx pending. Bld neg to date. Keep cefepime for now, stop vanco (MRSA screen neg). Hx LGL leukemia, chronic leukopenia. 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 Time devoted to patient care services described in this note equal: 35 minutes total critical care time exclusive of time spent performing procedures or time spent by another provider or resident. * Chevy Davies, [facility] - 05/26/2023 3:08 AM EDT PHARMACY PHARMACOKINETIC CONSULT [facility] [place] [id number] Name: Linsey Estrella Location: [facility] [id number] Date: 05/26/2023 Time: 3:07 AM Requesting Service: critical care medicine Bacteria being treated: unknown - empiric Source of infection: unknown Medication(s) being managed: Vancomycin Pharmacokinetic calculations will be performed without utilizing InsightRx software due to meeting exclusion criteria (KAUSHIK Stage 2 or 3 JUANITO, or receiving renal replacement therapy [iHD, CRRT, PD]). Lab information: Lab Results Component Value Date/Time WBC 1.11 (L) 05/25/2023 08:54 PM WBC 3.98 (L) 05/13/2023 06:27 AM WBC 3.67 (L) 05/12/2023 04:54 AM WBC 4.75 05/11/2023 05:00 AM WBC 3.75 (L) 05/10/2023 05:35 AM WBC 4.03 11/13/2019 11:29 AM WBC 4.37 02/09/2019 01:17 PM WBC 3.67 (L) 01/16/2019 11:00 AM WBC 4.26 01/13/2019 11:03 AM WBC 3.64 (L) 01/09/2019 11:04 AM Lab Results Component Value Date/Time BUN 43 (H) 05/25/2023 08:54 PM BUN 25 (H) 05/13/2023 06:27 AM BUN 22 (H) 05/12/2023 04:54 AM BUN 19 05/11/2023 03:21 PM BUN 19 05/11/2023 05:00 AM BUN 16 10/27/2019 10:00 AM BUN 17 12/02/2018 10:38 AM BUN 16 11/05/2018 02:14 PM BUN 14 10/21/2018 11:13 AM BUN 17 10/08/2018 10:59 AM Lab Results Component Value Date/Time CREAT 1.9 (H) 05/25/2023 08:54 PM CREAT 1.0 05/13/2023 06:27 AM CREAT 0.9 05/12/2023 04:54 AM CREAT 1.0 05/11/2023 03:21 PM CREAT 1.0 05/11/2023 05:00 AM CREAT 0.9 10/27/2019 10:00 AM CREAT 1.0 12/02/2018 10:38 AM CREAT 1.0 11/05/2018 02:14 PM CREAT 1.0 10/21/2018 11:13 AM CREAT 1.0 10/08/2018 10:59 AM ANTIMICROBIALS GIVEN (last 28 hours) None Wt Readings from Last 1 Encounters: 05/25/23 52.6 kg (116 lb) Dosing and levels to date: No results found for: "VANCO", "VANCOPEAK", "VANCORANDOM", "VANCOTROUGH", "GENTPEAK", "GENTRANDOM","GENTTROUGH", "TOBRAPEAK", "TOBRARANDOM", "TOBRATROUGH", "AMIKAPEAK", "AMIKARANDOM", "AMIKATROUGH" Day of Therapy Date Dose Admin Time Level (mcg/mL) Collected Time Notes/Comment 1 05/25/2023 1250 mg x 1 dose 2212 Impression: Patient is a 73 y.o. female being started on vancomycin empirically for sepsis. Plan/Recommendations: Administer 1250 mg IV Vancomycin (already given) followed by no maintenance regimen due to renal function. Obtain random level tomorrow AM labs . Pharmacy will continue to follow and dose as appropriate by renal function, culture results, infectious disease input, and overall clinical status. documented in this encounter H&P Notes * Tiffanie Loredo PA-C - 05/26/2023 2:34 AM EDT HISTORY & PHYSICAL EXAMINATION - Critical Care Medicine [facility] [place]-[address] [id number] Name: Linsey Estrella Location: [facility] [id number] Date: 05/26/2023 Time: 4:30 AM Care during the described time interval was provided by me. I have reviewed this patient's available data, including medical history, events of note, physical examination and test results. DATE OF ADMISSION: 05/26/2023 PRESENTING PROBLEM: Septic shock HPI: Pertinent Medical History: Patient is a 73 year old female with a PMHx of Leukemia (1996) who was transferred from [facility] secondary to septic shock. Patient has a history bladder cancer for which she recently underwent hysterectomy, bilateral salpingoophorectomy with cystectomy, ileal conduit by Dr. Saul Vargas (05/07). Below taken from 05/12 Discharge Summary: 11/2020 - Presented with urge urinary incontinence, left hydronephrosis and possible distal ureteral tumor 12/2020 - Cysto and left retrograde pyelogram: "diffusely abnormal mucosa with inflammatory and papillary changes at dome and posterior wall, high-grade ureteral obstruction" Cold cup biopsies showedmultifocal CIS (right, left, posterior cevallos, dome) 01/2021 - left lap nephroureterectomy, pT2N0 (0/1 LNs) high-grade UC, margins negative 04/2021 - completed induction BCG 05/2021 - bladder biopsy, inflammation, no carcinoma 08/2022 - completed 1 year maintenance BCG, CT urogram showed a 2 cm enhancing nodule at the dome ofthe bladder, cystoscopy negative 12/2022 - cysto showed abnormality at dome of bladder, CT urogram showed enlarging mass in this area 01/2023 - TURBT, abnormal area at the dome of the bladder, no franck papillary tumor Pathology: high-grade UC with sarcomatoid and squamous differentiation. 05/08/2023: S/P hysterectomy, bilateral salpingoophorectomy with cystectomy, ileal conduit by Dr. Saul Vargas secondary to High-risk nonmuscle invasive bladder cancer and left upper urinary tracturothelial carcinoma. The patient has a PMHx significant for leukemia, neutropenia followed by Dr. Lizarraga in Oncology. " Today: Patient presented to [facility] ED for fever. States that the fever began yesterday afternoon and quickly worsened to a temp of 104 degrees F with shaking chills. Patient contacted her urologist who recommended she go to the emergency department. Patient denies abdominal pain, nausea, vomiting, flank pain, chest pain, or shortness of breath. Does admit to fever, chills, as well as intermittent diarrhea. CT scan performed at the OSH revealed severe right hydro ureteral nephrosis despite the stent as well as a small right hemipelvis abscess. Patient is chronically neutropenic, but not currently undergoing chemotherapy. Patient arrived on 12 mcg/minute of Levophed. Patient reports she has no history of tobacco use. PAST MEDICAL HISTORY: Past Medical History: Diagnosis Date Inguinal hernia 02/18/1999 Surgical repair Kidney stone on left side 02/19/1996 Leukemia (HCC) Large granular lymphocytic leukemia Neutropenia (HCC) PONV (postoperative nausea and vomiting) PAST SURGICAL HISTORY: Past Surgical History: Procedure Laterality Date CYSTOSCOPY/TREAT MINOR LESION(S) N/A 01/09/2021 CYSTOURETHROSCOPY WITH FULGURATION MINOR BLADDER TUMOR performed by Chris Royal MD at [facility] CYSTOSCOPY/TREAT MINOR LESION(S) N/A 06/05/2021 CYSTOURETHROSCOPY WITH FULGURATION MINOR BLADDER TUMOR performed by Chris Royal MD at [facility] CYSTOSCOPY/TREAT SML BLADDER TUMOR N/A 02/04/2023 CYSTOURETHROSCOPY WITH FULGURATION SMALL BLADDER TUMOR performed by Chris Royal MD at [facility] DENTAL SURGERY PROCEDURE NEC INCISION OF WINDPIPE, PLANNED Left 02/04/2017 TRACHEOSTOMY PLANNED performed by Wendy Singh DO at [facility] INFORMATION 02/04/2017 never had a trach INFORMATION 1989 kidney stone removal LAPARO REMOVE K/URETER Left 02/01/2021 LAPAROSCOPIC NEPHRECTOMY TOTAL URETERECTOMY performed by Chris Royal MD at [facility] LARYNGOSCOPY, VOCAL CORD EXCISION/STRIPPING Left 02/04/2017 LARYNGOSCOPY DIRECT STRIPPING VOCAL CORD WITH MICROSCOPE performed by Wendy Singh DO at OR [facility] RADICAL HYSTERECTOMY N/A 05/08/2023 RADICAL ABDOMINAL HYSTERECTOMY performed by Saul Vargas MD at [facility] REMOVE BLADDER,REVISE URINARY TRACT N/A 05/08/2023 CYSTECTOMY COMPLETE WITH URETEROILEAL CONDUIT WITH BILATERAL PELVIC LYMPHADENECTOMY performed by Saul Vargas MD at OR [facility] REPAIR INITIAL INGUINAL HERNIA REDUCIBLE AGE 5 OR MORE 02/18/1999 FAMILY HISTORY: Family History Problem Relation Age of Onset Heart Disorder Mother Dyslipidemia Hypertension Mother Liver cancer Father Pancreatic cancer Father Diabetes Grandmother (Maternal) Stroke Grandmother (Maternal) Heart attack Grandfather (Maternal) Stroke Grandmother (Paternal) Cancer Grandfather (Paternal) 90 Unknown Diabetes Aunt (Unspecified) Diabetes Uncle (Unspecified) Breast Cancer No significant family history SOCIAL HISTORY: Social History Tobacco Use Smoking status: Never Passive exposure: Never Smokeless tobacco: Never Vaping Use Vaping Use: Never used Substance Use Topics Alcohol use: Yes Alcohol/week: 2.0 standard drinks of alcohol Types: 2 12 oz of beer per week Drug use: No PRIOR TO ADMISSION MEDS: Prior to Admission medications Medication Sig Last Dose Discont. Enoxaparin Sodium 40 MG/0.4ML Injection Solution Prefilled Syringe (Lovenox) Inject the contents of1 syringe (40 mg) under the skin daily in the morning for 23 days. oxyCODONE HCl 5 MG Oral Tablet (Oxy IR) Take 1 Tablet by mouth every 4 hours as needed for severe pain. Polyethylene Glycol 3350 17 GM/SCOOP Oral Powder (Miralax) Mix 17 grams of powder (1 capful to line) in 8 ounces of water or juice until dissolved and take by mouth daily at bedtime for constipation. Sennosides 8.6 MG Oral Tablet (Senokot) Take 2 Tablets by mouth daily in the morning. Filgrastim-sndz 480 MCG/0.8ML Injection Solution Prefilled Syringe (Zarxio) Administer 480 mcg (1 syringe) 4 days a week throughout chemotherapy. Ondansetron HCl 8 MG Oral Tablet (Zofran) Take 1 Tablet by mouth every 8 hours as needed for Nausea. Patient not taking: Reported on 05/01/2023 Prochlorperazine Maleate 10 MG Oral Tablet (Compazine) Take 1 Tablet by mouth every 6 hours as needed for Nausea. Patient not taking: Reported on 05/01/2023 Azelastine HCl 137 MCG/SPRAY Nasal Solution ADMINISTER 1 SPRAY INTO NOSTRIL 2 TIMES A DAY. Econazole Nitrate 1 % External Cream (Spectazole) Apply 2x daily from ankles down to feet/nails 2x daily for about 1 month until resolved, then 2x weekly to maintain clearance fluticasone (FLONASE) 50 MCG/ACT nasal spray Administer 2 Sprays into each nostril daily. loratadine (CLARITIN) 10 MG Tablet Take 1 Tablet by mouth at bedtime. Calcium Carbonate-Vitamin D 600-400 MG-UNIT Oral Tablet Chewable Take 1 Tablet by mouth in the morning. PROBIOTIC DAILY PO CAPS daily MULTIVITAMINS PO TABS 1 TABLET DAILY Patient not taking: Reported on 05/01/2023 CURRENT INFUSIONS: Titration Intake (RETIRED) NORepinephrine Volume (mL): 39 (05/26/23 033) ALLERGIES: Penicillins, Pollen, and Ragweed ROS: All systems reviewed and negative unless discussed in HPI OBJECTIVE: Most Recent Vital Signs: BP: 99 mmHg/53 mmHg (05/26/23 0400) Pulse: 103 (05/26/23 040) Temp: 37 C (05/26/23399) Temp Summary: Temp Min: 37 C (98.6 F) Max: 37.2 C (99 F) SpO2: 100 % (05/26/23399) O2 flow rate: Supplemental O2 Delivery: Room Air, None (05/26/23499) Physical Exam: Constitutional: (+) ill appearing HEENT: normal: normocephalic, atraumatic; no masses, tenderness, or adenopathy Eyes: sclera and conjunctiva normal Neck: supple, normal range of motion CV: normal heart sounds, normal rate, normal rhythm Chest: normal respiratory effort, breath sounds normal Abdomen: soft, no tenderness, (+) ileal conduit - urine in bag with some clumping. Stump appears healthy. No evidence of postoperative wound infection. Incisions healing well. Some with dermabond still in place Extremities: no edema, normal ROM Skin: warm, dry, intact: Neuro: alert, oriented to person, place, and time, normal mental status exam, Glascow Coma Score 15, muscular strength 5/5 and symmetric, sensory normal Laboratory Values: Component Latest Ref [facility] 05/25/2023 BUN 6 - 20 mg/dL 43 (H) Creatinine 0.5 - 1.0 mg/dL 1.9 (H) Estimated Glomerular Filtration Rate >=60 mL/min 28 (L) Sodium 135 - 146 mmol/L 133 (L) Potassium 3.5 - 5.1 mmol/L 4.0 Chloride 98 - 107 mmol/L 104 CO2 22 - 32 mmol/L 12 (L) Anion Gap 7 - 15 mmol/L 17 (H) Glucose 70 - 120 mg/dL 126 (H) Albumin 3.8 - 5.0 g/dL 2.6 (L) AST 10 - 35 U/L 10 Alkaline Phosphatase 35 - 130 U/L 70 Bilirubin, Total <=1.2 mg/dL 0.4 Calcium 8.4 - 10.2 mg/dL 8.6 Protein 6.0 - 8.3 g/dL 6.3 ALT 10 - 35 U/L 11 Temperature C 37.0 pH, Venous 7.320 - 7.430 units 7.382 pCO2, Venous 40.0 - 60.0 mmHg 26.4 (L) pO2, Venous 25.0 - 50.0 mmHg 58.0 (H) Base Excess, Venous -2.0 - 2.0 mmol/L -8.2 (L) HGB 12.0 - 15.3 g/dL 9.9 (L) HGB 12.0 - 15.3 g/dL 9.8 (L) Oxyhemoglobin, Venous 40.0 - 85.0 % total Hgb 86.2 (H) Carboxyhemoglobin, Whole Blood <=1.5 % total Hgb 1.4 Methemoglobin, Whole Blood <=1.5 % total Hgb 0.4 Reduced Hemoglobin, Venous % total Hgb 12.0 O2 Content, Venous 7.0 - 18.0 %vol 12.0 Bicarbonate, Whole Blood 23.0 - 31.0 mmol/L 15.3 (L) WBC 4.00 - 10.80 K/uL 1.11 (L) Neutrophils % 40.0 - 75.0 % 23.0 (L) Lymphocytes % 18.0 - 42.0 % 43.0 (H) Monocytes % 1.0 - 11.0 % 27.0 (H) Eosinophils % 0.0 - 6.0 % 2.0 Basophils % 0.0 - 2.0 % 5.0 (H) Absolute Neutrophils 1.80 - 7.70 K/uL 0.26 (L) Absolute Lymphocytes 1.00 - 4.80 K/uL 0.48 (L) Absolute Monocytes 0.00 - 1.10 K/uL 0.30 Absolute Eosinophils 0.00 - 0.70 K/uL 0.02 Absolute Basophils 0.00 - 0.20 K/uL 0.06 Smudge Cells None Seen Present ! WBC 4.00 - 10.80 K/uL 1.11 (L) RBC 3.85 - 5.15 M/uL 3.41 HCT 36.0 - 45.2 % 30.7 (L) MCV 81.5 - 97.5 fL 90.0 MCH 27.0 - 34.0 pg 28.7 MCHC 32.0 - 36.0 g/dL 31.9 RDW 11.5 - 15.5 % 15.9 PLT 140 - 400 K/uL 346 MPV 6.6 - 11.1 fL 9.7 nRBCs <=0 /100 WBCs 0 Prothrombin Time 11.6 - 15.2 seconds 14.2 INR 0.8 - 1.2 1.1 Procalcitonin <0.10 ng/mL 11.53 (H) Troponin T, High Sensitivity <=14 ng/L 45 (H) Lactate, Whole Blood 0.4 - 2.0 mmol/L 1.0 aPTT 21 - 38 seconds 41 (H) Legend: (H) High (L) Low ! Abnormal Radiographic Studies: CT A/P with IV contrast: Performed at OSH FINDINGS: Liver: There is mild periportal edema which is usually related to volume status. Gallbladder and bile ducts: No acute process. Pancreas: Normal. Spleen: Normal. Adrenal glands: The adrenal glands appear normal. Kidneys and ureters: There is a retrograde ureteral stent in place. There is severe right hydroureteronephrosis. Prior left nephrectomy. Stomach and bowel: The stomach, small bowel, and colon are well-distended and show no evidence of wall thickening, masses, or obstruction. Appendix: No evidence of appendicitis. Intraperitoneal space: Unremarkable. Vasculature: The abdominal aorta and its major branches appear normal without evidence of aneurysm or stenosis. There are pelvic phleboliths. Lymph nodes: No lymphadenopathy. Urinary bladder: Status post cystectomy. Right lower quadrant ileal conduit is noted. Reproductive: The patient has undergone prior hysterectomy. Bones/joints: The visualized osseous structures of the abdomen and pelvis appear normal for patient age. Soft tissues: There is a small fat containing umbilical hernia. There are loculated fluid collections along the pelvic sidewalls which contain small locules of air. There is a rim enhancing collection in the right deep pelvis measuring 1.9 x 2.5 cm (image 69 series 2). IMPRESSION IMPRESSION: 1. Status post cystectomy with a right [...] and are most likely postsurgical in nature. ASSESSMENT: Acute Problems: -Severe right hydroureteronephrosis despite the presence of a ureteral stent. -Small R hemipelvis abscess? -Septic Shock -JUANITO -Neutropenia PLAN: Septic shock appears to have been 2/2 a blocked urostomy tube. Urology came to bedside and aspirated the ureteral stent. After the aspiration, stent draining urine. Urology recommendations appreciated: - no acute urologic intervention indicated at this time - it appears that the stent was not draining appropriately due to mucus and sediments. It is hopeful once the stent is unblocked that it will start draining and HUN improves. - continue on broad spectrum antibiotics until the culture results. Two separate urine samples weresent, one from the urostomy and one from the renal pelvis (from the stent aspirate) - does not think what was read as small abscess needs any intervention. Continue antibiotics - titrate the pressor as needed but if patient decompensates or pressor requirements are increasing, she may need decompression with PCN placement - rest of the care per ICU team. Urology will continue to follow Continue vanc/zosyn Currently on 12 mcg/min levophed - will wean as able JUANITO - will trend Cr - will likely improve now that urostomy is draining Blood cultures pending Urine cultures pending Further recommendations to follow. I spent a total of 60 minutes coordinating, documenting, and providing critical care for this patient excluding time spent in the performance of separately billed services or time spent by another provider/QHP. Patient was seen and examined with attending, Dr Guerrero. Tiffanie Loredo PA-C 05/26/2023 5:45 AM Associated attestation - Martinez Guerrero MD - 05/26/2023 6:00 AM EDT I have reviewed the advanced practitioner's documentation on the date of service referenced in note, and I agree with, and take responsibility for the plan of care. Septic shock, source the urinary tract, source control per Urology. Devries culture and broad antibiotic coverage I spent a total of 65 minutes critical care time coordinating, documenting, and providing care for this patient excluding time spent in the performance of separately billed services or time spent by another provider/QHP. documented in this encounter Consult Notes * Chino Lucero OTR/Stella - 05/28/2023 3:25 PM EDTAssociated Order(s): ADULT OCCUPATIONAL THERAPY CONSULT IP GENERAL EVALUATION - Occupational Therapy [facility] [place] [id number] Name: Linsey Estrella Location: [facility] [id number] Date: 05/28/2023 Time: 3:33 PM Linsey Estrella is a 73 year old female. Patient Status: Inpatient Insurance: Payor: [facility] MEDICARE ADVANTAGE Plan: AET MEDICARE ADVANTAGE PPO Product Type: *No Product type* Patient Seen: at bedside, nursing cleared patient for therapy Patient Identified By: Name, ID Band and Date Diagnosis: UTI, urosepsis (05/28/231419) Status of treatment: Evaluation completed (05/28/231419) Weight Bearing Status: Weight bearing as tolerated (05/28/231419) Precautions: Alarms;Falls;Safety (05/28/231419) Total Treatment Time: 23 (05/28/231419) Past Medical History: Past Medical History: Diagnosis Date Inguinal hernia 02/18/1999 Surgical repair Kidney stone on left side 02/19/1996 Leukemia (HCC) Large granular lymphocytic leukemia Neutropenia (HCC) PONV (postoperative nausea and vomiting) Past Surgical History: Past Surgical History: Procedure Laterality Date CYSTOSCOPY/TREAT MINOR LESION(S) N/A 01/09/2021 CYSTOURETHROSCOPY WITH FULGURATION MINOR BLADDER TUMOR performed by Chris Royal MD at [facility] CYSTOSCOPY/TREAT MINOR LESION(S) N/A 06/05/2021 CYSTOURETHROSCOPY WITH FULGURATION MINOR BLADDER TUMOR performed by Chris Royal MD at [facility] CYSTOSCOPY/TREAT SML BLADDER TUMOR N/A 02/04/2023 CYSTOURETHROSCOPY WITH FULGURATION SMALL BLADDER TUMOR [facility] [place] PROCEDURE NEC INCISION OF WINDPIPE, PLANNED Left 02/04/2017 TRACHEOSTOMY PLANNED performed by Wendy Singh DO at [facility] INFORMATION 02/04/2017 never had a trach INFORMATION 1989 kidney stone removal LAPARO REMOVE K/URETER Left 02/01/2021 LAPAROSCOPIC NEPHRECTOMY TOTAL URETERECTOMY performed by Chris Royal MD at [facility] LARYNGOSCOPY, VOCAL CORD EXCISION/STRIPPING Left 02/04/2017 LARYNGOSCOPY DIRECT STRIPPING VOCAL CORD WITH MICROSCOPE performed by Wendy Singh DO at OR [facility] RADICAL HYSTERECTOMY N/A 05/08/2023 RADICAL ABDOMINAL HYSTERECTOMY performed by Saul Vargas MD at OR [facility] REMOVE BLADDER,REVISE URINARY TRACT N/A 05/08/2023 CYSTECTOMY COMPLETE WITH URETEROILEAL CONDUIT WITH BILATERAL PELVIC LYMPHADENECTOMY performed by Saul Vargas MD at OR [facility] REPAIR INITIAL INGUINAL HERNIA REDUCIBLE AGE 7 OR MORE 02/18/1999 Social History/Disposition Lives with: Spouse (05/28/231448) Assistance available: Yes (05/28/231448) Dwelling type: Multi-story home (05/28/231448) Entry steps: 4 (05/28/231448) Inside steps: 10 - 15 (05/28/231448) Bedroom location: 1st floor (05/28/231448) Bath location: 1st floor full bath (05/28/231448) Prior Level of Function Reported by: Patient (05/28/231419) Ambulation: Ambulatory without device (05/28/231419) Grooming: Independent (05/28/231419) Bathing: Independent (05/28/231419) Dressing: Independent (05/28/231419) Feeding: Independent (05/28/231419) Toileting: Independent (05/28/231419) Meal Prep: Independent (05/28/231419) Homemaking: Independent (05/28/231419) Shopping: Independent (05/28/231419) Driving: Yes (but not since april) (05/28/231419) Durable Medical Equipment at home: No device (05/28/231419) Subjective: Pt sitting in chair, agreeable to OT session. , Mendel present at bedside. Pain: No complaints of pain Observations Consciousness: Alert (05/28/231419) Orientation: Oriented times 4 (05/28/231419) Psychosocial: Patient can communicate basic needs;Patient can converse in a social setting (05/28/231419) Sitting posture: Forward head;Rounded shoulders (05/28/231419) Standing posture: Forward head;Rounded shoulders (05/28/231419) Safety awareness: The Patient verbalizes insight of current deficits.;The Patient demonstrates carryover of insight during functional tasks. (05/28/231419) Other Findings Endurance: Fair (05/28/231419) Light touch sensation: LUE;RUE;Intact (05/28/231419) Coordination: LUE;RUE;Intact (05/28/231419) Current Functional Status: Bilateral Upper Extremity Range of Motion: WFL (05/28/231419) Strength Assessment: (BUE 4+/5 throughout) (05/28/231419) Dressing Upper Body: Minimal Assistance (to don/doff robe) (05/28/231419) Lower Body: Moderate Assistance (to don socks) (05/28/231419) Functional Ambulation Assistive Device: No device (05/28/231419) Distance in feet:: 250 (+ 250) (05/28/231419) Level of Assistance: Supervision (Please Comment) (05/28/231419) OT Transfers Sit-Stand: Supervision (Please comment) (05/28/231419) Stand-Sit: Supervision (Please comment) (05/28/231419) Balance Sit (Static): Fair (05/28/231419) Sit (Dynamic): Fair (05/28/231419) Stand (Static): Fair (05/28/231419) Stand (Dynamic): Fair (05/28/231419) Alarm Status Patient positioned in: Chair (05/28/231419) With: Pressure pad alarm intact and functioning and call palomino in reach (05/28/231419) Following session patient seated OOB in chair with chair alarm activated. Chair alarm (did not havecord to plug into call palomino system and/or room did not have port to plug cord into call palomino system). Patient's nurse was made aware. Patient and Family Goals: to get well and to return home Patient Education Education Topic: Role of OT;Plan of care goals (05/28/231419) Review of Precautions: Safety;Fall (05/28/231419) Method of Education: Verbalized to patient (05/28/231419) Education Provided to: Patient (05/28/231419) Response to Education: Receptive and agreeable to education (05/28/231419) Barriers to learning: Medical status (05/28/231419) Preferred learning method: Combination (05/28/231419) Treatment Provided: Therapeutic Activity: 9 minutes Evaluation Moderate Complexity 14 minutes - 59581: Patient was cooperative and pleasant during treatment session. Moderate complexity evaluation performed and 3-5 activity limitations were identified, including ADL deficit, functional mobility deficit, bed mobility deficit, decreased strength, decreased endurance, and impaired balance. Minimal or moderate modification of the functional task was necessary to complete the evaluation. Deficits Requiring O.T. Treatment: Deficits requiring O.T. treatment needs: ADL/self-care;Balance;Endurance;Functional mobility;Safety (05/28/231419) Assessment: Patient was admitted to [facility] on 05/26/23 for UTI, urosepsis. Patient was cooperative andagreeable to participate in OT evaluation this date. Prior to admission patient was independent with ADLs/IADLs and mobility. During session patient demonstrates good BUE strength and ROM WFL. Sitting in chair pt able to don robe with Yanni and socks with modA, having difficulty donning sock 2/2 decr eased functional reach and flexibility. Sit/stand transfer completed with supervision and functional mobility of 250ft performed with supervision and no device. Short standing rest break taken due tofatigue. She then completed 250ft mobility back to room with above noted supervision. Following session in chair with all needs met. Currently, patients presents with deficits in ADLs and functional mobility, as well as decreased strength, decreased endurance, decreased balance and safety. Patient would benefit from continued OT services to improve independence in ADLs and functional mobility. When medically appropriate, Please consider home with post-acute care services which may include home health or outpatient therapy. The level of care will be determined in collaboration with the patient, family/caregiver and care team members. Goals: Demonstrates Self-Care at: UB Bathing: modified independent LB Bathing: modified independent UB Dressing: modified independent to don gown/robe/shirt LB Dressing: modified independent to don socks/shoes/pants Grooming: modified independent Toileting: modified independent Demonstrates Bed Mobility at: Supine to sit: modified independent Sit to supine: modified independent Demonstrates balance at: Dynamic/Static Sitting balance: Fair+ Dynamic/Static Standing balance: Fair+ Transfers: Sit to Stand: modified independent Stand to Sit: modified independent Toilet: modified independent Functional Ambulation at modified independent with AD PRN Demonstrates endurance at 30/30 minutes to engage in functional OT tasks Increase Strength of B UEs 1/2 muscle grade Goal Time Frame: 6 visits Treatment Plan: Safety, Bed mobility training, Functional Ambulation, Transfer Training, Balance activities, ADL training and Endurance Anticipated Frequency (on eval): 1 to 3 times per week (05/28/231419) AM-PAC Help From Another Person Eating Meals: None (05/28/231419) Help From Another Person Taking Care of Personal Grooming: A little (05/28/231419) Help From Another Person To Put On/Take Off Upper Body Clothing: A little (05/28/231419) Help From Another Person To Put On/Take Off Lower Body Clothing: A little (05/28/231419) Help From Another Person Toileting: A little (05/28/231419) Help From Another Person Bathing: A little (05/28/231419) OT AM-PAC Score: 19 (05/28/231419) OT AM-PAC t-Scale Score: 40.22 (05/28/231419) HLM (Highest Level of Mobility) Goal: Level 6 walk 10 steps or more (05/28/231448) A portion of this AM-PAC assessment not scored based on functional assessment; rather clinical decision making utilized based on current findings and/or prior level of function. Please refer to future AM-PAC calculations of functional ability as they become available. * Cristal Guy PT - 05/28/2023 2:49 PM EDTAssociated Order(s): ADULT PHYSICAL THERAPY CONSULT IP; ADULT PHYSICAL THERAPY CONSULT IP GENERAL EVALUATION - Physical Therapy [address] [address] Name: Linsey Estrella Location: [facility] [id number] Date: 05/28/2023 Time: 1448 Linsey Estrella is a/an 73 year old female. Patient Status: Inpatient Insurance: Payor: [employer] MEDICARE ADVANTAGE Plan: [employer] MEDICARE [employer]VANTAGE PPO Product Type: *No Product type* Patient Seen: at bedside, nursing cleared patient for therapy Patient Identified By: Name, ID Band and Date Diagnosis: septic shock (05/28/231448) Status of treatment: Evaluation completed (05/28/231448) Orders: PT evaluation and treatment;OOB (05/28/231448) Weight Bearing Status: Weight bearing as tolerated (05/28/231448) Precautions: Alarms;Falls;Safety (05/28/231448) Total Treatment Time--free text: 24 (05/28/231448) Past Medical History: Past Medical History: Diagnosis Date Inguinal hernia 02/18/1999 Surgical repair Kidney stone on left side 02/19/1996 Leukemia (HCC) Large granular lymphocytic leukemia Neutropenia (HCC) PONV (postoperative nausea and vomiting) Past Surgical History: Past Surgical History: Procedure Laterality Date CYSTOSCOPY/TREAT MINOR LESION(S) N/A 01/09/2021 CYSTOURETHROSCOPY WITH FULGURATION MINOR BLADDER TUMOR performed by Chris Royal MD at OR [facility] CYSTOSCOPY/TREAT MINOR LESION(S) N/A 06/05/2021 CYSTOURETHROSCOPY WITH FULGURATION MINOR BLADDER TUMOR performed by Chris Royal MD at [facility] CYSTOSCOPY/TREAT SML BLADDER TUMOR N/A 02/04/2023 CYSTOURETHROSCOPY WITH FULGURATION SMALL BLADDER TUMOR [facility] [place] [facility] [place]ED[place] NEC INCISION OF [place], PLANNED Left 02/04/2017 TRACHEOSTOMY PLANNED performed by Wendy Singh DO at OR [facility] INFORMATION 02/04/2017 never had a trach INFORMATION 1989 kidney stone removal LAPARO REMOVE K/URETER Left 02/01/2021 LAPAROSCOPIC NEPHRECTOMY TOTAL URETERECTOMY performed by Chris Royal MD at OR [facility] LARYNGOSCOPY, VOCAL CORD EXCISION/STRIPPING Left 02/04/2017 LARYNGOSCOPY DIRECT STRIPPING VOCAL CORD WITH MICROSCOPE performed by Wendy Singh DO at OR [facility] RADICAL HYSTERECTOMY N/A 05/08/2023 RADICAL ABDOMINAL HYSTERECTOMY performed by Saul Vargas MD at OR [facility] REMOVE BLADDER,REVISE URINARY TRACT N/A 05/08/2023 CYSTECTOMY COMPLETE WITH URETEROILEAL CONDUIT WITH BILATERAL PELVIC LYMPHADENECTOMY performed by Saul Vargas MD at OR [facility] REPAIR INITIAL INGUINAL HERNIA REDUCIBLE AGE 5 OR MORE 02/18/1999 Subjective: Pt awake in chair, agreeable to PT. at bedside playing scrabble with pt. Social History/Disposition Lives with: Spouse (05/28/231448) Assistance available: Yes (05/28/231448) Dwelling type: Multi-story home (05/28/231448) Entry steps: 4 (05/28/231448) Inside steps: 10 - 15 (05/28/231448) Bedroom location: 1st floor (05/28/231448) Bath location: 1st floor full bath (05/28/231448) Prior Level of Function Reported by: Patient (05/28/231448) Ambulation: Ambulatory without device (05/28/231448) Devices at home: No device (05/28/231448) Observations Consciousness: Alert (05/28/231448) Orientation: Oriented times 4 (05/28/231448) Psychosocial: Patient can communicate basic needs;Patient can converse in a social setting (05/28/231448) Other Findings: Yes (05/28/231448) Findings: Light touch sensation;Edema (05/28/231448) Light Touch Sensation Results: Intact;LLE;RLE (05/28/231448) Edema Results: Impaired;LLE;RLE (slight edema distal B/L LE) (05/28/231448) Sitting Posture: Forward head;Rounded shoulders (05/28/231448) Standing Posture: Forward head;Rounded shoulders (05/28/231448) Pain: No complaints of pain Range of Motion Range of Motion: WFL (05/28/231448) Strength Assessment Strength Assessment: Deficits noted (05/28/231448) WNL, except: RLE;LLE (05/28/231448) LLE: Hip;Ankle;4/5;Knee;4+/5 (05/28/231448) RLE: Hip;Ankle;4/5;Knee;4+/5 (05/28/231448) Transfers Sit-Stand: Supervision (05/28/231448) Stand-Sit: Supervision (05/28/231448) Ambulation: Distance ambulated (feet): 250 ft + standing rest break for 5 minutes + 250 ft Assistive Device: No device Assist: Supervision Stair Training: Number of stairs: 6 Number of handrails: 1 Level of Assistance: Supervision Balance Sit (Static): Fair (05/28/231448) Sit (Dynamic): Fair (05/28/231448) Stand (Static): Fair (05/28/231448) Stand (Dynamic): Fair (05/28/231448) Patient and or Family Goal(s): to get well and to return home Patient Education Review of Precautions: Safety;Fall (role of PT) (05/28/231448) Review of Exercises: Pt Demonstrated Exercise;Verbal Exercises Provided (05/28/231448) Safety Awareness: Patient verbalizes insight of current deficits;Patient demonstrates carryover of insight during functional tasks;Patient can communicate basic needs (05/28/231448) Preferred learning method: Combination (05/28/231448) Barriers to learning: Medical Status (05/28/231448) Method of Education: Verbalized to patient;Patient demonstrated task (05/28/231448) Topic of Education: Safety with mobility, Goals/plan of care, Stair training, and Fall prevention Method of Education: Verbal discussion and explanation provided to pt: verbalized understanding andor agreement of this information and demonstrated the exercise and or task Treatment Provided: Gait Training 10 minutes: gait training with no device stair training Evaluation Moderate Complexity 14 minutes - 19522: Patient was cooperative and pleasant during treatment session. Moderate complexity evaluation performed and 1-2 personal factors or comorbidities were identified that will impact plan of care, including multiple steps at home and history of cancer.Patient presents with limitations in strength, bed mobility, transfers, gait, elevations, balance, endurance, and safety, which will impact plan of care. These limitations will be addressed by the goals set for this patient. Alarm Status Patient positioned in: Chair (05/28/231448) With: Pressure pad alarm intact and functioning and call palomino in reach (no cord in NSICU, RN aware)(05/28/231448) Treatment Status: Treatment at bedside (05/28/231448) Goals: Demonstrate Bed Mobility with: modified independent Demonstrate Sit to/from Stand Transfers with: modified independent Demonstrate Ambulation: least restrictive assistive device, 400 ft, modified independent Demonstrate Stairclimbing: Number of steps: 12 and modified independent Increase Strength of: B/L LE by 1/2-1 muscle grade Increase Balance: dynamic standing balance to fair+ Increase Safety: with all functional mobility Time Frame: 5-6 visits Assessment: Pt is 73 year old female presenting with septic shock. Pt seen on this date for initialevaluation. Prior to admission, pt reports living in 2- story house (4 steps to enter, with bedroom and bathroom on 1st floor and laundry on 2nd floor) with who is able to assist if needed. Ptreports ambulating with no assistive device at baseline. During session, pt was cooperative. Upon initial evaluation, pt was able to perform sit to stand transfers with supervision and ambulated 250 ft with supervision and no assistive device. Pt then took a 5 minute standing rest break at window, then ambulated 250 ft with supervision and no assistive device. Pt with decreased gait speed. Pt also ascended and descended 6 steps supervision with 1 handrail. Following session, pt positioned in chair with alarm and call palomino in reach. Cord not plugged into call palomino system, as [facility] CHRISTIAN Silverio is aware. Pt presents with deficits in strength, endurance, mobility, ambulation, and balance, all of which are currently negatively impacting pt's quality of life. Pt would continue to benefit from skilled PT services while inpatient at hospital to reach established goals andaddress deficits. Please consider home with post-acute care services which may include home health or outpatient therapy. The level of care will be determined in collaboration with the patient, family/caregiver and care team members. All needs met. Deficits requiring P.T. treatment needs: Safety;Mobility;Balance;Weakness;Endurance;Lower extremitystrength (05/28/231448) Equipment Needs: Equipment needs: (TBD) (05/28/231448) Treatment Plan: Bed mobility training, Transfer training, Gait training, Elevation training, Strengthening exercises: B/L LE, Balance activities, and Educate on safety with functional mobility Anticipated Frequency (on eval): 1 to 3 times per week (05/28/231448) AM PAC Score with Stairs: 18 A portion of this AM-PAC assessment not scored based on functional assessment ; rather clinical decision making utilized based on current findings and/or prior level of function. Please refer to future AM-PAC calculations of functional ability as they become available. * Nikita Coley RN - 05/27/2023 9:23 AM EDTAssociated Order(s): BLOOD MANAGEMENT CONSULT IP CONSULT - Patient Blood Management [address] [address] Name: Linsey Estrella Location: [facility] [id number] Date: 05/27/2023 Time: 9:23 AM REQUESTING SERVICE: [facility] NSICU REASON FOR CONSULT: new evaluation inpatient, anemia Recent hemorrhage: no History of prior anemia: yes Recent surgery: no Anemia Evaluation: Latest Reference Range & Units 05/25/23 20:54 05/26/23 04:34 05/27/23 04:38 WBC 4.00 - 10.80 K/uL 1.11 (L) 2.46 (L) RBC 3.85 - 5.15 M/uL 3.41 2.91 HGB 12.0 - 15.3 g/dL 9.8 (L) 9.9 (L) 8.1 (L) 8.4 (L) HCT 36.0 - 45.2 % 30.7 (L) 25.9 (L) MCV 81.5 - 97.5 fL 90.0 89.0 MCH 27.0 - 34.0 pg 28.7 28.9 MCHC 32.0 - 36.0 g/dL 31.9 32.4 RDW 11.5 - 15.5 % 15.9 15.9 PLT 140 - 400 K/uL 346 324 (L): Data is abnormally low Current Patient Medications: Medications that may impair hemostasis: heparin Medications that may impair iron absorption: none Patient Refused Blood Transfusion? (e.g. Pentecostal): no Possible Contributing Factors: unclear Treatment Recommendations: If no active hemorrhage, consider PRBC transfusion only for severe anemia and use a 1 unit PRBC dose followed by a repeat clinical assessment. For reversal of anticoagulation therapy, use Reversal of Anticoagulation order set. Limit and coordinate blood draws to prevent iatrogenic anemia. Add on anemia labs. Will f/u as indicated. Latest Reference Range & Units 05/27/23 04:38 Iron 33 - 151 ug/dL 6 (L) Iron Binding Capacity 250 - 425 ug/dL 150 (L) Transferrin Saturation Percent 15 - 55 % 4 (L) Ferritin 13 - 150 ng/mL 386 (H) Immature Reticuloctye Fraction 2.5 - 20.6 % 10.9 Reticulocyte Hemoglobin 29.7 - 37.4 pg 24.7 (L) (L): Data is abnormally low (H): Data is abnormally high Patient is iron deficient, though cannot recommend IV iron in setting of infection. Once infection no longer a concern consider Venofer 300mg IVPB daily x 3 days. Follow-up Recommendations: Follow up with PCP for further assessment/management of anemia post discharge. Thank you for allowing Blood Management to participate in the care of this patient. * Yvonne Cordero LSW - 05/26/2023 12:33 PM EDTAssociated Order(s): CARE MANAGEMENT CONSULT IP Please see ancillary notes. CM to continue to follow throughout hospitalization. Thanks * Arthur Pina MD - 05/26/2023 3:26 AM EDTAssociated Order(s): UROLOGY CONSULT IP CONSULT - Urology [facility]-[address] [id number] Name: Linsey Estrella Location: [facility] [id number] Date: 05/26/2023 Time: 3:27 AM REQUESTING SERVICE: [facility] REASON FOR CONSULT: patient s/p radical cystectomy with urostomy. Now with septic shock and R hydronephrosis. Please eval HPI: Linsey Estrella is a 73 year old female admitted on 05/26/2023 for septic shock seen for above stated reason. Urologic history is significant for recent RC/IC on 05/08/23 for high-risk nonmuscle invasive bladder cancer. She also has a history of left upper tract urothelial carcinoma status post left lap nephroureterectomy, pT2N0 (0/1 LNs) high-grade UC, margins negative. Other medical history is significantfor large granular lymphocytic leukemia and neutropenia. After the recent surgery on 05/08/2023 she was discharged from the hospital on 05/13/2023. Per patient she has been doing okay except yesterday afternoon she started to have fever, generalized weakness and chills. Noted to have T-max of 104 F. then the patient presented to the nearest hospital [facility]. In the emergency room she was found to have systolic of 70s. She was given 1.6L of Isolyte without any improvement in blood pressure and was started on pressors. Also she was started on cefepime and vancomycin empirically. Otherwise vital signs notable for pulse in 110s. Creatinine notable at 1.9, baseline 1, lactate at 1, WBC 1.1, hemoglobin 9.8. Blood culture obtained but no urine culture was obtained at [place]. [facility] was obtained which showed hydroureteronephrosis on the right although it to the level of the conduit. Stent appears to be in the right position. Also noted a very small about 2 cm fluid collection in the right pelvis. On arrival to [facility] the patient states that she feels well without any pain. Still feels weak but much better than yesterday. Past Medical History: Diagnosis Date Inguinal hernia 02/18/1999 Surgical repair Kidney stone on left side 02/19/1996 Leukemia (HCC) Large granular lymphocytic leukemia Neutropenia (HCC) PONV (postoperative nausea and vomiting) Past Surgical History: Procedure Laterality Date CYSTOSCOPY/TREAT MINOR LESION(S) N/A 01/09/2021 CYSTOURETHROSCOPY WITH FULGURATION MINOR BLADDER TUMOR performed by Chris Royal MD at OR [facility] CYSTOSCOPY/TREAT MINOR LESION(S) N/A 06/05/2021 CYSTOURETHROSCOPY WITH FULGURATION MINOR BLADDER TUMOR performed by Chris Royal MD at OR [facility] CYSTOSCOPY/TREAT SML BLADDER TUMOR N/A 02/04/2023 CYSTOURETHROSCOPY WITH FULGURATION SMALL BLADDER TUMOR [facility] [place]ED[place] NEC INCISION OF [place], PLANNED Left 02/04/2017 TRACHEOSTOMY PLANNED performed by Wendy Singh DO at [facility] INFORMATION 02/04/2017 never had a trach INFORMATION 1989 kidney stone removal LAPARO REMOVE K/URETER Left 02/01/2021 LAPAROSCOPIC NEPHRECTOMY TOTAL URETERECTOMY performed by Chris Royal MD at [facility] LARYNGOSCOPY, VOCAL CORD EXCISION/STRIPPING Left 02/04/2017 LARYNGOSCOPY DIRECT STRIPPING VOCAL CORD WITH MICROSCOPE performed by Wendy Singh DO at [facility] RADICAL HYSTERECTOMY N/A 05/08/2023 RADICAL ABDOMINAL HYSTERECTOMY performed by Saul Vargas MD at [facility] REMOVE BLADDER,REVISE URINARY TRACT N/A 05/08/2023 CYSTECTOMY COMPLETE WITH URETEROILEAL CONDUIT WITH BILATERAL PELVIC LYMPHADENECTOMY performed by Saul Vargas MD at [facility] REPAIR INITIAL INGUINAL HERNIA REDUCIBLE AGE 5 OR MORE 02/18/1999 Family History Problem Relation Age of Onset [...] on file Occupational History Not on file Tobacco Use Smoking status: Never Passive exposure: Never Smokeless tobacco: Never Vaping Use Vaping Use: Never used Substance and Sexual Activity Alcohol use: Yes Alcohol/week: 2.0 standard drinks of alcohol Types: 2 12 oz of beer per week Drug use: No Sexual activity: Yes Partners: Male Other Topics Concern Not on file Social History Narrative Not on file Social Determinants of Health Financial Resource Strain: Not on file Food Insecurity: No Food Insecurity (10/21/2018) Hunger Vital Sign Worried About Running Out of Food in the Last Year: Never true Ran Out of Food in the Last Year: Never true Transportation Needs: Not on file Physical Activity: Not on file Stress: Not on file Social Connections: Not on file Intimate Partner Violence: Not on file Housing Stability: Not on file Current Facility-Administered Medications Medication Dose Route Frequency Provider Acetaminophen (Tylenol) tab 650 mg 650 mg Oral Q4H PRN Tiffanie Loredo PA-C Calcium Carbonate 500 mg + Vitamin D 5 mcg (200 units) per tab 1 Tablet Oral Daily Noon Tiffanie Loredo PA-C chlorHEXIDINE (Periogard) 0.12 % oral rinse 15 mL 15 mL Oral mucosal membrane BID (0800,1999) Tiffanie Loredo PA-C [START ON 05/27/2023] Drug Level Check - Vancomycin Random Does Not Apply Once Timed Lab 2hrs Tiffanie Loredo PA-C fluticasone (Flonase) nasal inhaler 2 [place] 2 [place] Each Nostril Daily(AM) Tiffanie Loredo PA-C Loratadine (Claritin) tab 10 mg 10 mg Oral HS Tiffanie Loredo PA-C NORepinephrine (Levophed) 4 mg in 250 ml D5W STANDARD CONCENTRATION 16 mcg/ml 0- 30 mcg/min Peripheral IV Titrate Tiffanie Loredo PA-C Oral Hygiene: Mouth Swab with dentifrice Oral Q4H Limited (00;04;12;16) Tiffanie Loredo PA-C Piperacillin-Tazobactam (Zosyn) 4.5 g in 100 mL NSS ivpb (FOUR hour infusion) 4.5 g IV Piggyback Q8H Now Tiffanie Loredo PA-C Piperacillin-Tazobactam (Zosyn) 4.5 g in 100 mL NSS ivpb (HALF hour infusion) 4.5 g IV Piggyback Once Tiffanie Loredo PA-C Polyethylene Glycol 3350 (Miralax) oral powder 17 g 17 g Oral HS Tiffanie Loredo PA-C senna (Senokot) 2 Tablet 2 Tablet Oral Daily(AM) Tiffanie Loredo PA-C sodium chloride 0.9 % flush peripheral rossana 3 mL 3 mL IV Push Q8H Tiffanie Loredo PA-C vancomycin per pharmacy order Does Not Apply Per Pharmacy Tiffanie Loredo PA-C Review of patient's allergies indicates: Allergen Reactions Penicillins Edema airway and Rash Last dose age 14 Tolerated Ancef Pollen [place] REVIEW OF SYSTEMS: See HPI for pertinent positive and negative ROS. Otherwise 10 point ROS review conducted. GEN: no weight loss, fever or chills, or significant fatigue HEENT: no changes in vision or hearing, no sinus problems, no sore throat or hoarseness RESPIRATORY: no cough, wheezing, change in breathing CARDIOVASCULAR: no exertional chest pain, dyspnea, palpitations GI: no vomiting or diarrhea; no changes in bowel habits : no dysuria, hematuria, frequency, no abnormal vaginal bleeding MUSCULOSKELETAL: no history of arthritis; other joint problems PSYCHIATRIC: no significant anxiety or depression, unchanged sleep pattern HEME: no bleeding or clotting tendency NEURO: no significant headaches, no seizures , no tremors SKIN: no new rashes, no itching ENDOCRINE: no changes to temperature sensitivity PHYSICAL EXAMINATION: Wt 57.1 kg (125 lb 14.1 oz) | BMI 20.63 kg/m | BSA 1.62 m Constitutional: Alert, no acute distress Skin: No obvious rashes or lesions Eyes: No scleral icterus ENT/Mouth: No tracheal deviation Cardiovascular: Normal rate, regular rhythm Respiratory: Non-labored breathing Gastrointestinal: Abdomen is soft, non-tender, non-distended, well-healed midline incision. Urostomy appears pink and healthy with 1 stent visualized in the back. Yellow urine in the bag with mucus Neurological: No gross focal deficits Psychiatric: Normal mood and affect Genitourinary: No CVA tenderness LABS: CBC Lab Results Component Value Date/Time WBC 1.11 (L) 05/25/2023 08:54 PM WBC 4.03 11/13/2019 11:29 AM HGB 9.8 (L) 05/25/2023 08:54 PM HGB 13.6 12/08/2021 12:00 AM HGB 13.6 12/01/2021 12:00 AM HCT 30.7 (L) 05/25/2023 08:54 PM HCT 43.7 11/13/2019 11:29 AM PLT 346 05/25/2023 08:54 PM PLT 313 11/13/2019 11:29 AM BMP Lab Results Component Value Date/Time NA 133 (L) 05/25/2023 08:54 PM NA 143 10/27/2019 10:00 AM POTASSIUM 4.0 05/25/2023 08:54 PM POTASSIUM 4.2 10/27/2019 10:00 AM CL 104 05/25/2023 08:54 PM CL 105 10/27/2019 10:00 AM CO2 12 (L) 05/25/2023 08:54 PM CO2 28 10/27/2019 10:00 AM BUN 43 (H) 05/25/2023 08:54 PM BUN 16 10/27/2019 10:00 AM CREAT 1.9 (H) 05/25/2023 08:54 PM CREAT 0.9 10/27/2019 10:00 AM Ca, Mg, Phos Lab Results Component Value Date/Time CA 8.6 05/25/2023 08:54 PM CA 9.3 10/27/2019 10:00 AM MG 1.7 05/11/2023 03:21 PM PHOSPHORUS 2.8 05/11/2023 03:21 PM Hepatic Function Panel Lab Results Component Value Date/Time TBIL 0.4 05/25/2023 08:54 PM TBIL 0.4 10/27/2019 10:00 AM ALKP 70 05/25/2023 08:54 PM ALKP 78 10/27/2019 10:00 AM AST 10 05/25/2023 08:54 PM AST 19 10/27/2019 10:00 AM ALT 11 05/25/2023 08:54 PM ALT 19 10/27/2019 10:00 AM PROT 6.3 05/25/2023 08:54 PM PROT 7.8 10/27/2019 10:00 AM Coags Lab Results Component Value Date/Time INR 1.1 05/25/2023 08:54 PM Lactic acid Lab Results Component Value Date/Time LAC 1.0 05/25/2023 08:54 PM Arterial Blood Gas Lab Results Component Value Date/Time PH 7.328 (L) 05/08/2023 12:13 PM PCO2 41.9 05/08/2023 12:13 PM PO2 315.0 (H) 05/08/2023 12:13 PM URINALYSIS Results for orders placed or performed in visit on 12/14/20 URINALYSIS, REFLEX TO MICROSCOPIC Result Value Ref Range Color, Urine Yellow Clarity, Urine Clear Glucose, Urine Negative mg/dL Bilirubin, Urine Negative Ketone, Urine Negative mg/dL Specific Hood, Urine 1.010 1.003 - 1.030 Blood, Urine Trace-intact pH, Urine 6.5 5.0 - 7.5 Units Protein, Urine Negative mg/dL Urobilinogen, Urine 0.2 mg/dL Nitrite, Urine Negative Negative Esterase, Urine Negative Negative RBC, Urine 0-2 0 - 2 /HPF WBC, Urine 3-5 (A) 0 - 2 /HPF Bacteria, Urine 0-25 0 - 25 /HPF Results for orders placed or performed in visit on 03/13/22 URINALYSIS WITH MICROSCOPIC EXAM Result Value Ref Range Color, Urine Yellow Light Yellow, Yellow, Dark Yellow Clarity, Urine Clear Clear Glucose, Urine Negative Negative mg/dL Bilirubin, Urine Negative Negative Ketone, Urine Negative Negative mg/dL Specific Hood, Urine 1.010 1.003 - 1.030 Blood, Urine Negative Negative pH, Urine 6.5 5.0 - 7.5 Units Protein, Urine Negative Negative mg/dL Urobilinogen, Urine 0.2 0.2, 1.0 mg/dL Nitrite, Urine Negative Negative Esterase, Urine Negative Negative RBC, Urine 0-2 0 - 2 /HPF WBC, Urine 0-2 0 - 2 /HPF Bacteria, Urine 0-25 0 - 25 /HPF CULTURES: Recent Cultures (2 Weeks) 04/25/2023 01/28/2023 03/13/2022 01/31/2022 05/29/2021 02/01/2021 01/25/2021 01/06/2021 4:05 PM 10:55 AM 11:31 AM 10:15 AM 11:09 AM 9:40 AM 1:15 PM 2:33 PM QUANT URINE CULTURE GROWTH No significant growth No significant growth No significant growth No significant growth No significant growth No significant growth No significant growth < 100 colonies/ml (no growth) UCx (05/26/2023): pending BCx (05/26/2023): pending Brief Urology procedure note 14 Pashto red rubber catheter was intubated into the urostomy and about 10 mL of cloudy urine obtained and sent for culture. Separately the ureteral stent was aspirated. Prior to the aspiration, the stent appeared to be not draining urine but after the 1st aspiration started to drain spontaneously.Total about 25 mL cloudy urine with sediments was obtained and sent for culture separately. Urostomy bag was reapplied IMAGING: No orders to display IMPRESSION: 73 year old female who recently underwent radical cystectomy and ileal conduit on 05/08/23 who is admitted for septic shock and right hydroureteronephrosis. RECOMMENDATIONS: - no acute urologic intervention indicated at this time - it appears that the stent was not draining appropriately due to mucus and sediments. It is hopeful once the stent is unblocked that it will start draining and HUN improves. - continue on broad spectrum antibiotics until the culture results. Two separate urine samples weresent, one from the urostomy and one from the renal pelvis (from the stent aspirate) - does not think what was read as small abscess needs any intervention. Continue antibiotics - titrate the pressor as needed but if patient decompensates or pressor requirements are increasing, she may need decompression with PCN placement - rest of the care per ICU team. Urology will continue to follow Patient to be discussed with Dr. Pina. Dena Briseno MD 05/26/2023 3:27 AM I saw and evaluated the patient today. I have reviewed the trainee note and agree. Patient was transferred to [facility] from [facility] after discussion with me when she presentedthere yesterday. We have obtain culture from her her conduit which is likely to grow bacteria. We have irrigated her stent which could have been partially obstructed explain in the mild renal pelvis dilation and altered renal function. Her abdomen is soft. She has no pain. She did start with some lo oser bowel movements yesterday but not watery. In the absence of other positive findings on infectious workup plan to treat for urinary tract infection. Can repeat renal ultrasound if renal function is not improving and consider percutaneous nephrostomy tube if persistent dilation. Arthur Pina MD documented in this encounter Nursing Notes * Tika Chavez, RN - 05/26/2023 5:00 AM EDT Dual Licensed Skin Assessment completed by Tika Chavez RN and Yumiko Martin RN. The patient is/has a N/A Skin Breakdown (includes non blanchable erythema): Yes - Surgical/Procedural changes only. Mid-line abdominal incision with topical surgical adhesive and one trochar site. RLQ urostomy with stent present B/L heels pink and blanchable, dry skin documented in this encounter Miscellaneous Notes * Ancillary Progress Note - Mariya Meyer, CHRISTIAN - 05/30/2023 2:25 PM EDT CARE MANAGEMENT - ADULT DISCHARGE NOTE [facility] [address] Name: Linsey Estrella Location: [facility] A4/A Date: 05/30/2023 Time: 3:33 PM The following coordination of care and discharge plan has been coordinated with the care team, patient, family and/or caregiver according to the patients needs and preferences. Discharge Discharge Second Notice Important Message from Medicare delivered: Yes (05/30/231526) Date Delivered: 05/30/23 (05/30/23 152) Retain copy in EHR: Yes (05/30/231526) Was Caregiver/Family/Facility contacted regarding discharge: Yes (05/30/23 152) Discharge Transportation: Family/Friends drive (05/30/23 152) Date of scheduled discharge transportation: 05/30/23 (05/30/23 1527) Time of scheduled discharge transportation: 1500 (05/30/23 152) Patient declined post-hospital transition of care recommendation: N/A (05/30/23 152) Final Discharge Plan (Complete only at time of Discharge): Home with Services (05/30/23 1532) Home Medical Care - Discharged on 05/30/2023 Admission date: 05/26/2023 - Discharge disposition: Home - Self Care Service Provider Selected Services Address Phone Fax Patient Preferred Last Updated [facility] ([facility] [address] [place] [address] [phone] -- Mariya Meyer, CHRISTIAN 05/29/2023 0915 Home Medical Care - Episodes Includes Home Medical Care providers with selected services from the active episodes listed below Blood Disorders Episode start date: 01/03/2021 There are no active outsourced providers for this episode. Narrative: Pt will discharge home with her providing transportation today. Pt will resume [facility] services and CM called agency to resume services. Pt was discharged with three 2 1/4" urostomy drainable pouches #[id number],and two, 2 1/4"compatible cut to fit wafers. Reviewed IMM with pt and and informed that patient is medically stable for discharge, however, may have 4 hours to consider whether they want to appeal discharge. Pt waived waiting those 4 hours and wishes for discharge to occur prior to that time. I have conducted the discharge appointment with the pt, her , nursing and [facility] on 05/30/2023 at 1500 . This discussion occurred bedside and via phone. Meds to beds offered: yes. The following post care is planned: PCP follow up. I encouraged the patient and/or family to call the hospital with any questions or concerns about the hospital admission. * Progress Notes - Post-Op Global - Shravan Hudson MD - 05/30/2023 7:36 AM EDT PROGRESS NOTE - Urology [facility] [address] Name: Linsey Estrella Location: [facility] A437/A Date: 05/30/2023 Time: 7:36 AM SUBJECTIVE: Afebrile, vitals are stable. No acute overnight events. Feels well, complaints. Tolerating diet with no nausea or vomiting. Walked in the halls 5 times yesterday. Having flatus and BM. Denies CP, SOB PHYSICAL EXAMINATION: Most Recent Vital Signs: BP: 113 mmHg/65 mmHg (05/30/23699) Pulse: 79 (05/30/23699) Temp: 36.78 C (05/30/23599) Temp Summary: Temp Min: 36.2 C (97.2 F) Max: 37.3 C (99.1 F) SpO2: 100 % (05/30/23599) O2 flow rate: Supplemental O2 Delivery: Room Air, None (05/30/23699) Intake/Output Summary (Last 24 hours) at 05/30/2023735 Last data filed at 05/30/2023 0700 Gross per 24 hour Intake 879.2 ml Output 1495 ml Net -615.8 ml General: awake, alert and responsive Heart:: Regular rate Chest: Normal WOB Abdomen: soft, non distended. Non-tender. Incision intact. Extremities: no deformities : stoma pink and healthy . Single J stent in place LABS: CBC Lab Results Component Value Date/Time WBC 2.09 (L) 05/30/2023 05:01 AM WBC 4.03 11/13/2019 11:29 AM HGB 7.3 (L) 05/30/2023 05:01 AM HGB 13.6 12/08/2021 12:00 AM HGB 13.6 12/01/2021 12:00 AM HCT 23.4 (L) 05/30/2023 05:01 AM HCT 43.7 11/13/2019 11:29 AM PLT 222 05/30/2023 05:01 AM PLT 313 11/13/2019 11:29 AM BMP Lab Results Component Value Date/Time NA 140 05/30/2023 05:01 AM NA 143 10/27/2019 10:00 AM POTASSIUM 3.4 (L) 05/30/2023 05:01 AM POTASSIUM 4.2 10/27/2019 10:00 AM CL 112 (H) 05/30/2023 05:01 AM CL 105 10/27/2019 10:00 AM CO2 19 (L) 05/30/2023 05:01 AM CO2 28 10/27/2019 10:00 AM BUN 12 05/30/2023 05:01 AM BUN 16 10/27/2019 10:00 AM CREAT 1.2 (H) 05/30/2023 05:01 AM CREAT 0.9 10/27/2019 10:00 AM Ca, Mg, Phos Lab Results Component Value Date/Time CA 7.9 (L) 05/30/2023 05:01 AM CA 9.3 10/27/2019 10:00 AM MG 1.6 05/30/2023 05:01 AM PHOSPHORUS 2.2 (L) 05/30/2023 05:01 AM ASSESSMENT: 73 year old s/p radical cystectomy and ileal conduit on 05/08/2023. She was readmitted to ICU for UTI and urosepsis. Clinically convalesced. Renal US was reassuring. Slight hydronephrosis likely due to reflux of urine PLAN: - Continue culture specific antibiotics - Continue ambulation and regular diet - Ok for discharge from urology perspective, rest of care per primary team Patient to be discussed with Dr. Alicia Hudson MD Urology Resident [facility] Associated attestation - Saul Vargas MD - 05/30/2023 3:02 PM EDT I saw and evaluated the patient today. I have reviewed the trainee note and agree. * Ancillary Progress Note - Mariya Meyer RN - 05/29/2023 9:16 AM EDT CARE MANAGEMENT - ADULT TRANSITION NOTE [facility] [address] Name: Linsey Estrella Location: [facility] A437/A Date: 05/29/2023 Time: 9:16 AM Risk Stratification Risk Stratification Psycho Social / Medical Concerns Identified: Adjustment to illness/injury;Chronic Kidney Disease;Multiple Comorbidities;New serious diagnosis (05/26/23 1225) Readmission Risk Score: 17 (05/29/23 0800) AM-PAC Score With Stairs : 18 (05/29/23 0044) Caregiver Information Patient Contacts Name Relation Home Work Mobile Himanshu Estrella Spouse [phone] SydmooncarrieCarolyn Adult Child [phone] Transition of Care Checklist Narrative: Pt discussed in IDT Boost and chart reviewed. Pt was a transfer from [facility] on 05/25 with Dx of septic shock with source being UTI and nephrolithiasis causing obstruction s/p flushing with resolution of obstruction. Pt tolerating regular diet, had BM. Pt is for Renal US today and waiting on culture results for antibiotic tailoring. MD considering antifungal if no improvement. Pt is written to transfer to floor today and [facility] called CM to confirm activity and resumption of care upon discharge. CM will continue to follow. Anticipated Transportation at Discharge: Family Patient/Family Expectations: Return home with resumption of [facility] services. Transition Planning Additional Considerations: Culture results, Renal US on 05/28. Care Management will continue to monitor and assist with discharge planning needs * Progress Notes - Post-Op Global - Shravan Hudson MD - 05/29/2023 7:01 AM EDT PROGRESS NOTE - Urology [facility] [address] Name: Linsey Estrella Location: [facility] A437/A Date: 05/29/2023 Time: 7:01 AM SUBJECTIVE: Afebrile, vitals are stable. No acute overnight events. Feels well, no pain. Tolerating diet with no nausea or vomiting. Having flatus and BM. Denies CP, SOB PHYSICAL EXAMINATION: Most Recent Vital Signs: BP: 114 mmHg/62 mmHg (05/29/23699) Pulse: 91 (05/29/23699) Temp: 37.11 C (05/29/23599) Temp Summary: Temp Min: 35.9 C (96.7 F) Max: 37.2 C (99 F) SpO2: 100 % (05/29/23699) O2 flow rate: Supplemental O2 Delivery: Room Air, None (05/29/23699) Intake/Output Summary (Last 24 hours) at 05/29/2023700 Last data filed at 05/29/2023 07 Gross per 24 hour Intake 1451.17 ml Output 2015 ml Net -563.83 ml General: awake, alert and responsive Heart:: Regular rate Chest: Normal WOB Abdomen: soft, non distended. Non-tender. Incision intact. Extremities: no deformities : stoma pink and healthy . Single J stent in place LABS: CBC Lab Results Component Value Date/Time WBC 2.46 (L) 05/29/2023 04:23 AM WBC 4.03 11/13/2019 11:29 AM HGB 8.2 (L) 05/29/2023 04:23 AM HGB 13.6 12/08/2021 12:00 AM HGB 13.6 12/01/2021 12:00 AM HCT 27.0 (L) 05/29/2023 04:23 AM HCT 43.7 11/13/2019 11:29 AM PLT 249 05/29/2023 04:23 AM PLT 313 11/13/2019 11:29 AM BMP Lab Results Component Value Date/Time NA 140 05/29/2023 04:23 AM NA 143 10/27/2019 10:00 AM POTASSIUM 3.4 (L) 05/29/2023 04:23 AM POTASSIUM 4.2 10/27/2019 10:00 AM CL 113 (H) 05/29/2023 04:23 AM CL 105 10/27/2019 10:00 AM CO2 18 (L) 05/29/2023 04:23 AM CO2 28 10/27/2019 10:00 AM BUN 11 05/29/2023 04:23 AM BUN 16 10/27/2019 10:00 AM CREAT 1.3 (H) 05/29/2023 04:23 AM CREAT 0.9 10/27/2019 10:00 AM Ca, Mg, Phos Lab Results Component Value Date/Time CA 7.8 (L) 05/29/2023 04:23 AM CA 9.3 10/27/2019 10:00 AM MG 2.0 05/29/2023 04:23 AM PHOSPHORUS 2.2 (L) 05/29/2023 04:23 AM ASSESSMENT: 73 year old s/p radical cystectomy and ileal conduit on 05/08/2023. She was readmitted to ICU for UTI and urosepsis. Clinically improving, off pressors, likely transfer to the floors today PLAN: - Continue culture specific antibiotics - Renal US today, will f/u - Continue ambulation and regular diet Patient to be discussed with Dr. Alicia Hudson MD Urology Resident [facility] Associated attestation - Saul Vargas MD - 05/30/2023 7:50 AM EDT I saw and evaluated the patient 05/29/2023. I have reviewed the trainee note and agree. * Care Plan - Santos Jurado RN - 05/28/2023 2:41 PM EDT Clinical Goal(s): MAP > 65 (05/28/23 0800) Possible barriers to meeting goal(s)/advancing plan of care: Medication Stability of the patient: Moderately stable - low risk of patient condition declining or worsening Summary regarding today's goal(s): Met: Pt maintained MAP > 65 w/o medication Recommendations: Continue to monitor * Ancillary Progress Note - Latanya Huitron RDN - 05/28/2023 8:25 AM EDT CLINICAL NUTRITION ADULT RISK ASSESSMENT [address] [address] Name: Linsey Estrella Location: [address] Date: 05/28/2023 Time: 1:33 PM How patient was identified (select 2): date and Name Linsey Estrella is a 73 year old female being assessed for clinical nutrition risk related to extended LOS Primary diagnosis: 73 year old female was admitted on 05/26/2023 and presents with septic shock. s/pradical cystectomy and ileal conduit on 05/08/2023 Other pertinent information: The patient reports that her appetite is small at baseline as she tends to "graze" throughout the day at home. She reports that she has consumed boost supplements in the past, but she is not interested in any oral supplementation at this time. Diarrhea is noted during this admission. Will continue to monitor the patient's weight status, laboratory values, and oral intakes. Anthropometrics Measurements Admission weight (for dietitians): 57 kg Height: 166.4 cm (5' 5.5") (05/26/23 0400) Weight: 60 kg (132 lb 4.4 oz) (05/28/23 0800) Usual Body Weight or EDW for Dialysis Patients: 53-55 kg Diet: Regular Previously followed diet: Regular Food Allergies/Intolerances: None. Oral Nutrition Supplement (ONS): N/A Pertinent medications/vitamins/minerals/supplements: Isolyte infusion, Calcium Carbonate +Vitamin D, Colace, Nivestym, Miralax, Senokot, Magnesium Sulfate, Potassium Chloride, Latest Reference Range & Units 05/28/23 04:49 Potassium 3.5 - 5.1 mmol/L 2.8 (L) (L): Data is abnormally low Hypokalemia is noted- supplementation has been provided today. RISK FACTORS: Adult Energy Intake: No significant decrease Interpretation of Weight Change: No recent/significant weight change Skin: Surgical incision: Abdomen. NUTRITION RISK CATEGORY: Nutrition Risk Category: Low/Moderate (0-1 factors) Clinical Nutrition Recommendations: Diet: Continue current nutrition plan NUTRITION INTERVENTION/PLAN: Continue current care plan Will follow and adjust nutritional plan as medical condition requires. Please contact for change(s)in patient condition requiring earlier intervention. Latanya Huitron RDN, LDN Registered Dietitian [phone] Available via [employer] * Progress Notes - Post-Op Global - Benny Brito MD - 05/28/2023 6:36 AM EDT PROGRESS NOTE - Urology [facility] [address] Name: Linsey Estrella Location: [facility] A437/A Date: 05/28/2023 Time: 6:36 AM SUBJECTIVE: feeling better overall. She had regular diet for dinner and able to tolerate. No pain. Continues to have bowel movements and getting out of bed. PHYSICAL EXAMINATION: Most Recent Vital Signs: BP: 113 mmHg/59 mmHg (05/28/23399) Pulse: 76 (05/28/23 0400) Temp: 36.11 C (05/28/23399) Temp Summary: Temp Min: 36.1 C (97 F) Max: 37.1 C (98.8 F) SpO2: 99 % (05/28/230) O2 flow rate: Supplemental O2 Delivery: Room Air, None (05/28/23 0600) Intake/Output Summary (Last 24 hours) at 05/28/2023 0636 Last data filed at 05/28/2023 0600 Gross per 24 hour Intake 4151.45 ml Output 1495 ml Net 2656.45 ml General: awake, alert and responsive Heart:: Regular rate Chest: Normal WOB Abdomen: soft, milldy distended. Non-tender. Incision intact. Extremities: no deformities : stoma pink and healthy . Single J stent in place LABS: CBC Lab Results Component Value Date/Time WBC 1.57 (L) 05/28/2023 04:49 AM WBC 4.03 11/13/2019 11:29 AM HGB 7.7 (L) 05/28/2023 04:49 AM HGB 13.6 12/08/2021 12:00 AM HGB 13.6 12/01/2021 12:00 AM HCT 24.3 (L) 05/28/2023 04:49 AM HCT 43.7 11/13/2019 11:29 AM PLT 238 05/28/2023 04:49 AM PLT 313 11/13/2019 11:29 AM BMP Lab Results Component Value Date/Time NA 139 05/28/2023 04:49 AM NA 143 10/27/2019 10:00 AM POTASSIUM 2.8 (L) 05/28/2023 04:49 AM POTASSIUM 4.2 10/27/2019 10:00 AM CL 108 (H) 05/28/2023 04:49 AM CL 105 10/27/2019 10:00 AM CO2 19 (L) 05/28/2023 04:49 AM CO2 28 10/27/2019 10:00 AM BUN 16 05/28/2023 04:49 AM BUN 16 10/27/2019 10:00 AM CREAT 1.3 (H) 05/28/2023 04:49 AM CREAT 0.9 10/27/2019 10:00 AM Ca, Mg, Phos Lab Results Component Value Date/Time CA 7.5 (L) 05/28/2023 04:49 AM CA 9.3 10/27/2019 10:00 AM MG 1.8 05/28/2023 04:49 AM PHOSPHORUS 2.9 05/28/2023 04:49 AM ASSESSMENT: 73 year old s/p radical cystectomy and ileal conduit on 05/08/2023. She was readmitted to ICU for UTI and urosepsis. Clinically improving, off pressors PLAN: - Tailor antibiotics as appropriate based on cultures - Consider addition of antifungal if not improving - Obtain renal U/S tomorrow to reassess hydronephrosis Patient to be discussed with Dr Alicia Brito MD 05/28/2023 6:39 AM Associated attestation - Saul Vargas MD - 05/28/2023 1:49 PM EDT I saw and evaluated the patient today. I have reviewed the trainee note and agree. * Ancillary Progress Note - Mariya Meyer RN - 05/27/2023 3:59 PM EDT CARE MANAGEMENT - ADULT TRANSITION NOTE [facility] [address] Name: Linsey Estrella Location: [facility] A437/A Date: 05/27/2023 Time: 3:59 PM Risk Stratification Risk Stratification Psycho Social / Medical Concerns Identified: Adjustment to illness/injury;Chronic Kidney Disease;Multiple Comorbidities;New serious diagnosis (05/26/23 1225) Readmission Risk Score: 18.44 (05/27/23 1201) AM-PAC Score With Stairs : 24 (05/26/231999) Caregiver Information Patient Contacts Name Relation Home Work Mobile Himanshu Estrella Spouse [phone] SameerCarolyn Adult Child [phone] Transition of Care Checklist Narrative: Pt discussed in IDT Boost and chart reviewed. Pt restarted on Vasopressor last night, Urostomy functioning, cultures pending from Ileal conduit and ureteral stent. Pt for repeat renal ultrasound on Saturday. Pt continues to be monitored in ICU and is not ready for discharge at this time. CM will continue to follow. Anticipated Transportation at Discharge: Family Patient/Family Expectations: Goal is to return home with [facility]. Transition Planning Additional Considerations: Continue to follow for needs. Care Management will continue to monitor and assist with discharge planning needs * Ancillary Progress Note - Yvonne Cordero LSW - 05/26/2023 12:33 PM EDT HOME HEALTH REFERRAL FORM CARE MANAGEMENT [address] [place] [address] Referred By: MELIZA Domingo Admission Date: 05/26/2023 Discharge Date: tbd Discharge Time: tbd Start Date: 24-48 hrs after discharge Agency Referred To: [facility] - Phone: [phone]; Fax: [phone] PATIENT INFORMATION: Name: Linsey Estrella [address]: [address] [place] [address] : 1950 (home) SSN: [id number] County: [place] Emergency Contacts: Extended Emergency Contact Information Primary Emergency Contact: Himanshu Estrella Douglas Mobile Relation: Spouse Preferred language: Sierra Leonean Facialist needed? No Secondary Emergency Contact: SydjoseodiliaCarolyn butler Mobile Relation: Adult Child Preferred language: [place]an Facialist needed? No MEDICAL INFORMATION: Principal Diagnosis: Septic shock Other Diagnosis: See attached History and Physical Surgery and Dates: Past Surgical History: Procedure Laterality Date CYSTOSCOPY/TREAT MINOR LESION(S) N/A 01/09/2021 CYSTOURETHROSCOPY WITH FULGURATION MINOR BLADDER TUMOR performed by Chris Royal MD at [facility] CYSTOSCOPY/TREAT MINOR LESION(S) N/A 06/05/2021 CYSTOURETHROSCOPY WITH FULGURATION MINOR BLADDER TUMOR performed by Chris Royal MD at [facility] CYSTOSCOPY/TREAT SML BLADDER TUMOR N/A 02/04/2023 CYSTOURETHROSCOPY WITH FULGURATION SMALL BLADDER TUMOR [facility] PROCEDURE NEC INCISION OF WIN[place], PLANNED Left 02/04/2017 TRACHEOSTOMY PLANNED performed by Wendy Singh DO at OR [facility] INFORMATION 02/04/2017 never had a trach INFORMATION 1989 kidney stone removal LAPARO REMOVE K/URETER Left 02/01/2021 LAPAROSCOPIC NEPHRECTOMY TOTAL URETERECTOMY performed by Chris Royal MD at OR [facility] LARYNGOSCOPY, VOCAL CORD EXCISION/STRIPPING Left 02/04/2017 LARYNGOSCOPY DIRECT STRIPPING VOCAL CORD WITH MICROSCOPE performed by Wendy Singh DO at OR [facility] RADICAL HYSTERECTOMY N/A 05/08/2023 RADICAL ABDOMINAL HYSTERECTOMY performed by Saul Vargas MD at OR [facility] REMOVE BLADDER,REVISE URINARY TRACT N/A 05/08/2023 CYSTECTOMY COMPLETE WITH URETEROILEAL CONDUIT WITH BILATERAL PELVIC LYMPHADENECTOMY performed by Saul Vargas MD at OR [facility] REPAIR INITIAL INGUINAL HERNIA REDUCIBLE AGE 5 OR MORE 02/18/1999 Diet: Adults: As tolerated and clear liquid Allergies: Penicillins, Pollen, and Ragweed Isolation Type: None Activity Restrictions: Activity as tolerated Isolation For: None HOME CARE ORDERS: (Discipline and Frequency): Overall health assessment and vital signs Medication management and teaching Disease management and teaching Home safety evaluation Assess for services PT/OT evaluation as indicated Labwork as indicated Medications Dose, Frequency, & Route: Refer to Physician's Discharge Instructions Equipment and Supplies: N/A Ordering Physician and Contact Information: Lonny Patel MD [address] [place] [id number] Comments: 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 * Ancillary Progress Note - Yvonne Cordero LSW - 05/26/2023 12:27 PM EDT CARE MANAGEMENT - ADULT INITIAL SCREENING [facility] [address] Name: Linsey Estrella Location: [facility] [id number] Date: 05/26/2023 Time: 12:29 PM Discussed patient with the interdisciplinary care team. This Cattle Sorter performed a chart review and met with pt at bedside to complete admission screen and assessed needs for transition planning. The eye care professional role and services were explained and emotional support was provided. Chief Complaint: No chief complaint on file. Prior Living Arrangements What was your living situation prior to admission/observation?: Independently;With Spouse () Living Quarters: House (05/26/231224) Number of steps to enter living quarters:: 3 (05/26/231224) Do you have serious difficulty walking or climbing stairs? (5 years old or older): No (05/26/23244) History of falling: No (05/26/23799) Prior Level of Functioning Describe the patient's ability prior to admission/observation to perform ADLs: Performs independently (05/26/23244) Describe the patient's mobility status prior to admission: Patient ambulates independently (05/26/23244) Patient uses assistive device: No (05/26/23244) Caregiver Information Patient Contacts Name Relation Home Work Mobile Himanshu Estrella Spouse [phone] Carolyn Estrella Adult Child [phone] Risk Stratification/Psychosocial/Care Gaps Risk Stratification Psycho Social / Medical Concerns Identified: Adjustment to illness/injury;Chronic Kidney Disease;Multiple Comorbidities;New serious diagnosis (05/26/231224) Readmission Risk Score: 17.04 (05/26/23 1200) AM-PAC Score With Stairs : 24 (05/26/23 0800) Prior to Admission Services Services Prior to Admission FUNDS DEVELOPMENT DIRECTOR Services (Services received within the last 30 days with exception, Psych within last two years): Home Health (05/26/231224) List All Provider/Service Name: [facility] Home Health (05/26/231224) Agency contacted: Yes (05/26/231224) [place] Dept[employer] 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 Pt was independent with ADLs and did not use any DME FUNDS DEVELOPMENT DIRECTOR. Pt reported she was active with [facility] FUNDS DEVELOPMENT DIRECTOR - MIKE opened for agency. No hx of SNF or IRF stays. Pt has not been driving recently, however spouse is able to drive when needed. No MH or KELLEY concerns reported during assessment. CM will continue to follow through admission to aid with evolving needs, provide psychosocial support, and assist with discharge planning as indicated. Patient/Family Expectations: return home with [facility] For further screening information, please refer to the Care Management flow document. * Ancillary Progress Note - Opal Johnson, INSIDE [employer]IC[employer]OWER - 05/26/2023 6:55 AM EDT PATIENT DRIVEN PROTOCOL - Respiratory Care Services [address] [address] Name: Linsey Estrella Location: [facility] [id number] Date: 05/26/2023 Time: 6:55 AM Patient Driven Protocol Summary: Initial evaluation performed. This Treatment Plan and medications will be reviewed by the Primary Care Team for any contraindications. Respiratory Care Treatment Plan Pulmonary Volume Expansion Therapy: Incentive Spirometry PRN to prevent or treat alveolar consolidation and atelectasis. Additional Pulmonary Volume Expansions: Flutter Therapy: PRN to enhance mobilization of secretions. . The patient will be re-evaluated: No re-evaluation needed. Indications for treatment met. The Triage Level is: (Assessment Score = 0 - 5) Level 5. Triage Level Definitions: Level 1 Severe Respiratory/Airway Compromise Level 2 Moderate Respiratory/Airway Compromise or high risk for pulmonary complications Level 3 Mild Respiratory/Airway Compromise or moderate risk for pulmonary complications Level 4 Episodic Respiratory/Airway Compromise or low risk for pulmonary complications Level 5 No Respiratory/Airway Compromise Triage 1 Triage 2 Triage 3 Triage 4 Triage 5 greater than 20 16 - 20 11 - 15 6 - 10 0 - 5 Medical Record Assessment Clinical Findings Pulmonary Status: 0 - No History Surgical Status: 2 - Lower Abdominal Chest X-Ray: 0 - Clear Assessment Score: 2 Patient Assessment Clinical Findings Respiratory Pattern: 1 - RR 21 - 25; Patient gets short of breath when hurrying on level ground or walking up a slight hill. Breath Sounds: 0 - Clear to auscultation Cough Effectiveness: 0 - Strong non-productive Sputum Production: 0 - No sputum production Level of Activity: 1 - Ambulatory with assist O2 needed to keep SpO2 greater than or equal to 92%: 0 - Room Air Assessment Score: 2 Total Assessment Score: 4 Breath Sounds: Inspiratory and expiratory clear bilaterally.. Cough and Sputum: An effective cough produced no sputum... CXR: PROCEDURE INFORMATION: Exam: XR Chest Exam date and time: 05/25/2023 9:03 PM Age: 73 years old Clinical indication: Other: Concern for sepsis TECHNIQUE: Imaging protocol: Radiologic exam of the chest. Views: 1 view. COMPARISON: CT CHEST WO(Adult) 02/26/2023 1:47 PM FINDINGS: Lungs: Scarring in the right upper lung. Pleural spaces: No large effusion or pneumothorax. Heart/Mediastinum: No evidence of mediastinal widening or cardiac silhouette enlargement; the mediastinum and heart appear within normal limits for contour and size. Vasculature: Partially visualized right stent. Bones/joints: No evidence of acute osseous abnormalities within the visualized portions of the thoracic spine and ribs. Osseous structures appear appropriate for patient age. Soft tissues: Upper abdominal surgical clips. IMPRESSION IMPRESSION: No dense parenchymal consolidation, pleural effusion, or pneumothorax. . Vital Signs: Resp: 15 (05/26/23650) Pulse: 115 (05/26/23650) Temp: 37 C (98.6 F) (05/26/23 0400) BP: 102/59 (05/26/23 0645) SpO2: 100 % (05/26/23 0651) PFT: Minimal Predicted IC: 0.891 L. Inspiratory capacity: 1.2L. Primary Service: Critical Care White. Admitting Diagnosis: Septic shock (HCC) [A41.9, R65.21] Neutropenic sepsis (HCC) [A41.9, D70.9] Pulmonary Diagnosis: none . Prescriptions/Home Medications/Durable Medical Equipment: none. documented in this encounter Plan of Treatment Upcoming Encounters Date Type Department Care Team (Late st Contact Info) Description 06/04/2023 9:30 AM EDT Office Visit Urology[address] [place] [address] Saul Vargas MD [address] [place] [address] 06/10/2023 10:30 AM EDT Office Visit Urology, [facility] [address] [place] [address] Chris Royal MD [address] [facility] [place] [address] [facility] [place] [address] 06/24/2023 10:40 AM EDT Office Visit Nephrology, [facility] [address] [place] [address] Demetrius Sherman MD [address] [place] [address] 07/25/2023 11:15 AM EDT Office Visit Hematology/Oncology [facility] [address] [place] [id number] Flor Lizarraga MD [address] [place] [address] 11/12/2023 9:20 AM EDT Office Visit General Internal Medicine [facility] [address] [place] [address] Kvng Lizarraga MD [address] [facility] [place] [address] Health Maintenance Due Date Last Done Comments [...] Additional history exists CKD HGB USE SMARTSET 68384 05/29/202405/29, 05/29/2023, 05/28/2023, Additional history exists CKD PHOS USE SMARTSET 27494 05/29/202405/19, 05/29/2023, 05/28/2023, Additional history exists DXA [...] Procedure Name Priority Date/Time Associated Diagnosis Comments BASIC METABOLIC PANEL Routine 05/30/2023 5:01 AM EDT PHOSPHORUS STAT 05/30/2023 5:01 AM EDT CBC Routine 05/30/2023 5:01 AM EDT MAGNESIUM STAT 05/30/2023 5:01 AM EDT US RENAL STAT 05/29/2023 8:21 AM EDT BASIC METABOLIC PANEL Routine 05/29/2023 4:23 AM EDT PHOSPHORUS STAT 05/29/2023 4:23 AM EDT CBC Routine 05/29/2023 4:23 AM EDT MAGNESIUM STAT 05/29/2023 4:23 AM EDT BASIC METABOLIC PANEL Routine 05/28/2023 4:49 AM EDT PHOSPHORUS STAT 05/28/2023 4:49 AM EDT CBC Routine 05/28/2023 4:49 AM EDT MAGNESIUM STAT 05/28/2023 4:49 AM EDT RETICULOCYTE PANEL Add-on 05/27/2023 4: 38 AM EDT BASIC METABOLIC PANEL Routine 05/27/2023 4:38 AM EDT IRON SCREEN, INCLUDING TIBC Add-on 05/27/2023 4:38 AM EDT PHOSPHORUS STAT 05/27/2023 4:38 AM EDT CBC Routine 05/27/2023 4:38 AM EDT MAGNESIUM STAT 05/27/2023 4:38 AM EDT FERRITIN Add-on 05/27/2023 4:38 AM EDT BLOOD GAS, VENOUS STAT 05/26/2023 4:3 4 AM EDT CALCIUM, IONIZED STAT 05/26/2023 4:34 AM EDT BASIC METABOLIC PANEL Add-on 05/26/2023 4:33 AM EDT PHOSPHORUS STAT 05/26/2023 4:33 AM EDT MAGNESIUM STAT 05/26/2023 4:33 AM EDT CULTURE, URINE, QUANTITATIVE Routine 05/26/2023 4:19 AM EDT CULTURE, URINE, QUANTITATIVE STAT 05/26/2023 3:28 AM EDT EXTRA URINE Routine 05/26/2023 3:22 AM EDT EXTRA TUBES Routine 05/26/2023 3:22 AM EDT MRSA SCREEN, PCR Routine 05/26/2023 3:22 AM EDT URINALYSIS, REFLEX TO MICROSCOPIC Routine 05/26/2023 3:22 AM EDT documented in this encounter Results * (ABNORMAL) PHOSPHORUS (05/30/2023 5:01 AM EDT) Phosphorus 2.2(L) 2.5 - 4.8 mg/dL 05/30/2023 5:47 AM EDT LABORATORY GM Blood Venous blood specimen / Unknown Venipuncture / Unknown 05/30/2023 5:01 AM EDT 05/30/2023 5:18 AM EDT Tiffanie Loredo PA-C LAB BLOOD ORDERABLES LABORATORY [facility] [address] [place] [address] * MAGNESIUM (05/30/2023 5:01 AM EDT) Magnesium 1.6 1.5 - 2.6 mg/dL 05/30/2023 5:47 AM EDT LABORATORY [facility] Blood Venous blood specimen / Unknown Venipuncture / Unknown 05/30/2023 5:01 AM EDT 05/30/2023 5:18 AM EDT Tiffanie Loredo PA-C LAB BLOOD ORDERABLES LABORATORY [facility] [address] [place] [address] * (ABNORMAL) BASIC METABOLIC PANEL (05/30/2023 5:01 AM EDT) BUN 12 6 - 20 mg/dL 05/30/2023 5:47 AM EDT LABORATORY [facility] Creatinine 1.2(H) 0.5 - 1.0 mg/dL 05/30/2023 5:47 AM EDT LABORATORY [facility] Estimated Glomerular Filtration Rate 49(L) >=60 mL/min 05/30/2023 5:47 AM EDT LABORATORY [facility] Comment:eGFR is calculated b ased on the CKD-EPI 2020 equation Sodium 140 135 - 146 mmol/L 05/30/2023 5:47 AM EDT LABORATORY [facility] Potassium 3.4(L) 3.5 - 5.1 mmol/L 05/30/2023 5:47 AM EDT LABORATORY [facility] Chloride 112(H) 98 - 107 mmol/L 05/30/2023 5:47 AM EDT LABORATORY [facility] CO2 19(L) 22 - 32 mmol/L 05/30/2023 5:47 AM EDT LABORATORY [facility] Anion Gap 9 7 - 15 mmol/L 05/30/2023 5:47 AM EDT LABORATORY [facility] Glucose 93 70 - 120 mg/dL 05/30/2023 5:47 AM EDT LABORATORY [facility] Calcium 7.9(L) 8.4 - 10.2 mg/dL 05/30/2023 5:47 AM EDT LABORATORY [facility] Blood Venous blood specimen / Unknown Venipuncture / Unknown 05/30/2023 5:01 AM EDT 05/30/2023 5:18 AM EDT Tiffanie Loredo PA-C LAB BLOOD ORDERABLES LABORATORY [facility] [address] [place] [address] * (ABNORMAL) CBC (05/30/2023 5:01 AM EDT) WBC 2.09(L) 4.00 - 10.80 K/uL 05/30/2023 5:29 AM EDT LABORATORY [facility] RBC 2.58 3.85 - 5.15 M/uL 05/30/2023 5:29 AM EDT LABORATORY [facility] HGB 7.3(L) 12.0 - 15.3 g/dL 05/30/2023 5:29 AM EDT LABORATORY [facility] HCT 23.4(L) 36.0 - 45.2 % 05/30/2023 5:29 AM EDT LABORATORY [facility] MCV 90.7 81.5 - 97.5 fL 05/30/2023 5:29 AM EDT LABORATORY [facility] MCH 28.3 27.0 - 34.0 pg 05/30/2023 5:29 AM EDT LABORATORY [facility] MCHC 31.2 32.0 - 36.0 g/dL 05/30/2023 5:29 AM EDT LABORATORY [facility] RDW 15.9 11.5 - 15.5 % 05/30/2023 5:29 AM EDT LABORATORY [facility] PLT 222 140 - 400 K/uL 05/30/2023 5:29 AM EDT LABORATORY [facility] MPV 10.0 6.6 - 11.1 fL 05/30/2023 5:29 AM EDT LABORATORY GM nRBCs 0 <=0 /100 WBCs 05/30/2023 5:29 AM EDT LABORATORY GM Blood Venous blood specimen / Unknown Venipuncture / Unknown 05/30/2023 5:01 AM EDT 05/30/2023 5:18 AM EDT Tiffanie Loredo PA-C LAB BLOOD ORDERABLES LABORATORY [facility] [address] [place] [address] * US RENAL (05/29/2023 8:21 AM EDT) Anatomical Region Laterality Modality Abdomen, Body Ultrasound 05/29/2023 8:41 AM EDT Impressions 05/29/2023 8:39 AM EDT IMPRESSION Similar mild to moderate right hydronephrosis. Narrative 05/29/2023 8:39 AM EDT EXAM US RENAL-05/29/2023 8:21 am HISTORY f/u right-sided hydronephrosis COMPARISON CT scan dated 05/25/2023 and ultrasound dated 11/21/2020 TECHNIQUE Real time sonographic imaging of the kidneys was performed. FINDINGS Right kidney: Measures 13.8 cmx5.6 cmx6.1 cm. A nephroureteral stent remains in place. There is similar mild to moderate hydronephrosis. Small cysts are noted as well. No calculi are seen. Left kidney: Surgically absent. Bladder: Surgically absent. Aorta: Visualized portions normal in caliber. Procedure Note Dalton Dunbar MD - 05/29/2023 EXAM US RENAL-05/29/2023 8:21 am HISTORY f/u right-sided hydronephrosis COMPARISON CT scan dated 05/25/2023 and ultrasound dated 11/21/2020 TECHNIQUE Real time sonographic imaging of the kidneys was performed. FINDINGS Right kidney: Measures 13.8 cmx5.6 cmx6.1 cm. A nephroureteral stentremains in place. There is similar mild to moderate hydronephrosis.Small cysts are noted as well. No calculi are seen. Left kidney: Surgically absent. Bladder: Surgically absent. Aorta: Visualized portions normal in caliber. IMPRESSION IMPRESSION Similar mild to moderate right hydronephrosis. Saul Hinson DO RAD ULTRASOUND * (ABNORMAL) PHOSPHORUS (05/29/2023 4:23 AM EDT) Phosphorus 2.2(L) 2.5 - 4.8 mg/dL 05/29/2023 5:13 AM EDT LABORATORY [facility] Blood Venous blood specimen / Unknown Venipuncture / Unknown 05/29/2023 4:23 AM EDT 05/29/2023 4:37 AM EDT Tiffanie Loredo PA-C LAB BLOOD ORDERABLES LABORATORY [facility] [address] [place] [address] * MAGNESIUM (05/29/2023 4:23 AM EDT) Magnesium 2.0 1.5 - 2.6 mg/dL 05/29/2023 5:13 AM EDT LABORATORY [facility] Blood Venous blood specimen / Unknown Venipuncture / Unknown 05/29/2023 4:23 AM EDT 05/29/2023 4:37 AM EDT Tiffanie Loredo PA-C LAB BLOOD ORDERABLES LABORATORY [facility] [address] [place] [address] * (ABNORMAL) BASIC METABOLIC PANEL (05/29/2023 4:23 AM EDT) BUN 11 6 - 20 mg/dL 05/29/2023 5:13 AM EDT LABORATORY C Creatinine 1.3(H) 0.5 - 1.0 mg/dL 05/29/2023 5:13 AM EDT LABORATORY C Estimated Glomerular Filtration Rate 44(L) >=60 mL/min 05/29/2023 5:13 AM EDT LABORATORY C Comment:eGFR is calculated b ased on the CKD-EPI 2020 equation Sodium 140 135 - 146 mmol/L 05/29/2023 5:13 AM EDT LABORATORY [facility] Potassium 3.4(L) 3.5 - 5.1 mmol/L 05/29/2023 5:13 AM EDT LABORATORY C Chloride 113(H) 98 - 107 mmol/L 05/29/2023 5:13 AM EDT LABORATORY [facility] CO2 18(L) 22 - 32 mmol/L 05/29/2023 5:13 AM EDT LABORATORY [facility] Anion Gap 9 7 - 15 mmol/L 05/29/2023 5:13 AM EDT LABORATORY C Glucose 96 70 - 120 mg/dL 05/29/2023 5:13 AM EDT LABORATORY [facility] Calcium 7.8(L) 8.4 - 10.2 mg/dL 05/29/2023 5:13 AM EDT LABORATORY [facility] Blood Venous blood specimen / Unknown Venipuncture / Unknown 05/29/2023 4:23 AM EDT 05/29/2023 4:37 AM EDT Tiffanie Loredo PA-C LAB BLOOD ORDERABLES LABORATORY [facility] [address] [place] [address] * (ABNORMAL) CBC (05/29/2023 4:23 AM EDT) WBC 2.46(L) 4.00 - 10.80 K/uL 05/29/2023 4:55 AM EDT LABORATORY [facility] RBC 2.94 3.85 - 5.15 M/uL 05/29/2023 4:55 AM EDT LABORATORY [facility] HGB 8.2(L) 12.0 - 15.3 g/dL 05/29/2023 4:55 AM EDT LABORATORY [facility] HCT 27.0(L) 36.0 - 45.2 % 05/29/2023 4:55 AM EDT LABORATORY [facility] MCV 91.8 81.5 - 97.5 fL 05/29/2023 4:55 AM EDT LABORATORY [facility] MCH 27.9 27.0 - 34.0 pg 05/29/2023 4:55 AM EDT LABORATORY [facility] MCHC 30.4 32.0 - 36.0 g/dL 05/29/2023 4:55 AM EDT LABORATORY [facility] RDW 15.9 11.5 - 15.5 % 05/29/2023 4:55 AM EDT LABORATORY [facility] PLT 249 140 - 400 K/uL 05/29/2023 4:55 AM EDT LABORATORY [facility] MPV 10.0 6.6 - 11.1 fL 05/29/2023 4:55 AM EDT LABORATORY [facility] nRBCs 0 <=0 /100 WBCs 05/29/2023 4:55 AM EDT LABORATORY [facility] Blood Venous blood specimen / Unknown Venipuncture / Unknown 05/29/2023 4:23 AM EDT 05/29/2023 4:37 AM EDT Tiffanie M Ombongi PA-C LAB BLOOD ORDERABLES Performing Organization Address [facility]/ZIP Co de Phone Number LABORATORY [facility] [address] [place] [address] * PHOSPHORUS (05/28/2023 4:49 AM EDT) Phosphorus 2.9 2.5 - 4.8 mg/dL 05/28/2023 5:34 AM EDT LABORATORY [facility] Blood Venous blood specimen / Unknown Venipuncture / Unknown 05/28/2023 4:49 AM EDT 05/28/2023 5:03 AM EDT Tiffanie Sawyer Gertrude PRINGLE-C LAB BLOOD ORDERABLES Performing Organization Address [facility] Co de Phone Number LABORATORY [facility] [address] [place] [address] * MAGNESIUM (05/28/2023 4:49 AM EDT) Magnesium 1.8 1.5 - 2.6 mg/dL 05/28/2023 5:34 AM EDT LABORATORY C Blood Venous blood specimen / Unknown Venipuncture / Unknown 05/28/2023 4:49 AM EDT 05/28/2023 5:03 AM EDT Tiffanie Sawyer Omross PRINGLE-C LAB BLOOD ORDERABLES Performing Organization Address [facility] de Phone Number LABORATORY [facility] [address] [place] [address] * (ABNORMAL) BASIC METABOLIC PANEL (05/28/2023 4:49 AM EDT) BUN 16 6 - 20 mg/dL 05/28/2023 5:34 AM EDT LABORATORY C Creatinine 1.3(H) 0.5 - 1.0 mg/dL 05/28/2023 5:34 AM EDT LABORATORY [facility] Estimated Glomerular Filtration Rate 44(L) >=60 mL/min 05/28/2023 5:34 AM EDT LABORATORY [facility] Comment:eGFR is calculated b ased on the CKD-EPI 2020 equation Sodium 139 135 - 146 mmol/L 05/28/2023 5:34 AM EDT LABORATORY [facility] Potassium 2.8(L) 3.5 - 5.1 mmol/L 05/28/2023 5:34 AM EDT LABORATORY [facility] Chloride 108(H) 98 - 107 mmol/L 05/28/2023 5:34 AM EDT LABORATORY [facility] CO2 19(L) 22 - 32 mmol/L 05/28/2023 5:34 AM EDT LABORATORY [facility] Anion Gap 12 7 - 15 mmol/L 05/28/2023 5:34 AM EDT LABORATORY [facility] Glucose 98 70 - 120 mg/dL 05/28/2023 5:34 AM EDT LABORATORY [facility] Calcium 7.5(L) 8.4 - 10.2 mg/dL 05/28/2023 5:34 AM EDT LABORATORY [facility] Blood Venous blood specimen / Unknown Venipuncture / Unknown 05/28/2023 4:49 AM EDT 05/28/2023 5:03 AM EDT Tiffanie Loredo PA-C LAB BLOOD ORDERABLES LABORATORY [facility] [address], [place] [id number] * (ABNORMAL) CBC (05/28/2023 4:49 AM EDT) WBC 1.57(L) 4.00 - 10.80 K/uL 05/28/2023 5:15 AM EDT LABORATORY [facility] RBC 2.73 3.85 - 5.15 M/uL 05/28/2023 5:15 AM EDT LABORATORY [facility] HGB 7.7(L) 12.0 - 15.3 g/dL 05/28/2023 5:15 AM EDT LABORATORY [facility] HCT 24.3(L) 36.0 - 45.2 % 05/28/2023 5:15 AM EDT LABORATORY [facility] MCV 89.0 81.5 - 97.5 fL 05/28/2023 5:15 AM EDT LABORATORY [facility] MCH 28.2 27.0 - 34.0 pg 05/28/2023 5:15 AM EDT LABORATORY [facility] MCHC 31.7 32.0 - 36.0 g/dL 05/28/2023 5:15 AM EDT LABORATORY [facility] RDW 15.9 11.5 - 15.5 % 05/28/2023 5:15 AM EDT LABORATORY [facility] PLT 238 140 - 400 K/uL 05/28/2023 5:15 AM EDT LABORATORY [facility] MPV 10.1 6.6 - 11.1 fL 05/28/2023 5:15 AM EDT LABORATORY [facility] nRBCs 0 <=0 /100 WBCs 05/28/2023 5:15 AM EDT LABORATORY [facility] Blood Venous blood specimen / Unknown Venipuncture / Unknown 05/28/2023 4:49 AM EDT 05/28/2023 5:03 AM EDT Tiffanie Loredo PA-C LAB BLOOD ORDERABLES Performing Organization Address [facility] de Phone Number LABORATORY [place] [address] [place] [address] * (ABNORMAL) IRON SCREEN, INCLUDING TIBC (05/27/2023 4:38 AM EDT) Iron 6(L) 33 - 151 ug/dL 05/27/2023 10:36 AM EDT LABORATORY [facility] Iron Binding Capacity 150(L) 250 - 425 ug/dL 05/27/2023 10:36 AM EDT LABORATORY C Transferrin Saturation Percent 4(L) 15 - 55 % 05/27/2023 10:36 AM EDT LABORATORY C Blood Venous blood specimen / Unknown Venipuncture / Unknown 05/27/2023 4:38 AM EDT 05/27/2023 4:48 AM EDT Ivan Flynn MD LAB BLOOD ORDERABLES Performing Organization Address City/[facility]/ZIP Co de Phone Number LABORATORY [place] [address] [place] [address] * (ABNORMAL) RETICULOCYTE PANEL (05/27/2023 4:38 AM EDT) Reticulocyte Percent 1.15 0.80 - 1.90 % 05/27/2023 10:20 AM EDT LABORATORY [facility] Absolute Reticulocyte 33.1 31.3 - 100.1 K/uL 05/27/2023 10:20 AM EDT LABORATORY [facility] Immature Reticuloctye Fraction 10.9 2.5 - 20.6 % 05/27/2023 10:20 AM EDT LABORATORY [facility] Reticulocyte Hemoglobin 24.7(L) 29.7 - 37.4 pg 05/27/2023 10:20 AM EDT LABORATORY [facility] Blood Venous blood specimen / Unknown Venipuncture / Unknown 05/27/2023 4:38 AM EDT 05/27/2023 4:48 AM EDT Ivan Flynn MD LAB BLOOD ORDERABLES LABORATORY [facility] [address] [place] [address] * (ABNORMAL) FERRITIN (05/27/2023 4:38 AM EDT) Ferritin 386(H) 13 - 150 ng/mL 05/27/2023 10:59 AM EDT LABORATORY [facility] Comment:Postmenopausal women have higher ferritin levels than pre-menopausal women. The above reference interval is based on pre-menopausal women. Blood Venous blood specimen / Unknown Venipuncture / Unknown 05/27/2023 4:38 AM EDT 05/27/2023 4:48 AM EDT Ivan Flynn MD LAB BLOOD ORDERABLES LABORATORY [place] [address] [place] [address] * PHOSPHORUS (05/27/2023 4:38 AM EDT) Phosphorus 3.6 2.5 - 4.8 mg/dL 05/27/2023 5:17 AM EDT LABORATORY [facility] Blood Venous blood specimen / Unknown Venipuncture / Unknown 05/27/2023 4:38 AM EDT 05/27/2023 4:48 AM EDT Tiffanie Sawyer Omross PRINGLE-Marielos LAB BLOOD ORDERABLES Performing Organization Address City/[facility]/ZIP Co de Phone Number LAB[facility]ATORY [facility] [address] [place] [address] * MAGNESIUM (05/27/2023 4:38 AM EDT) Magnesium 2.0 1.5 - 2.6 mg/dL 05/27/2023 5:17 AM EDT LAB[facility]ATORY [facility] Blood Venous blood specimen / Unknown Venipuncture / Unknown 05/27/2023 4:38 AM EDT 05/27/2023 4:48 AM EDT Tiffanie Sawyer Omross PRINGLE-C LAB BLOOD ORDERABLES Performing Organization Address [facility] Co de Phone Number LAB[facility]ATORY [facility] [address] [place] [address] * (ABNORMAL) BASIC METABOLIC PANEL (05/27/2023 4:38 AM EDT) BUN 23(H) 6 - 20 mg/dL 05/27/2023 5:17 AM EDT LAB[facility]ATORY [facility] Creatinine 1.6(H) 0.5 - 1.0 mg/dL 05/27/2023 5:17 AM EDT LAB[facility]ATORY [facility] Estimated Glomerular Filtration Rate 35(L) >=60 mL/min 05/27/2023 5:17 AM EDT LAB[facility]ATORY [facility] Comment:eGFR is calculated b ased on the CKD-EPI 2020 equation Sodium 136 135 - 146 mmol/L 05/27/2023 5:17 AM EDT LAB[facility]ATORY [facility] Potassium 3.5 3.5 - 5.1 mmol/L 05/27/2023 5:17 AM EDT LAB[facility]ATORY [facility] Chloride 107 98 - 107 mmol/L 05/27/2023 5:17 AM EDT LAB[facility]ATORY [facility] CO2 19(L) 22 - 32 mmol/L 05/27/2023 5:17 AM EDT LAB[facility]ATORY [facility] Anion Gap 10 7 - 15 mmol/L 05/27/2023 5:17 AM EDT LAB[facility]ATORY [facility] Glucose 135(H) 70 - 120 mg/dL 05/27/2023 5:17 AM EDT LAB[facility]ATORY [facility] Calcium 7.8(L) 8.4 - 10.2 mg/dL 05/27/2023 5:17 AM EDT LAB[facility]ATORY [facility] Blood Venous blood specimen / Unknown Venipuncture / Unknown 05/27/2023 4:38 AM EDT 05/27/2023 4:48 AM EDT Tiffanie Loredo PA-C LAB BLOOD ORDERABLES Performing Organization Address City/State/[facility] Co de Phone Number LABORATORY [facility] [address] [place] [address] * (ABNORMAL) CBC (05/27/2023 4:38 AM EDT) WBC 2.46(L) 4.00 - 10.80 K/uL 05/27/2023 5:00 AM EDT LAB[facility]ATORY [facility] RBC 2.91 3.85 - 5.15 M/uL 05/27/2023 5:00 AM EDT LAB[facility]ATORY [facility] HGB 8.4(L) 12.0 - 15.3 g/dL 05/27/2023 5:00 AM EDT LAB[facility]ATORY [facility] HCT 25.9(L) 36.0 - 45.2 % 05/27/2023 5:00 AM EDT LAB[facility]ORY [facility] MCV 89.0 81.5 - 97.5 fL 05/27/2023 5:00 AM EDT LAB[facility]ATORY [facility] MCH 28.9 27.0 - 34.0 pg 05/27/2023 5:00 AM EDT LABORATORY [facility] MCHC 32.4 32.0 - 36.0 g/dL 05/27/2023 5:00 AM EDT LAB[facility]ATORY [facility] RDW 15.9 11.5 - 15.5 % 05/27/2023 5:00 AM EDT LAB[facility]ATORY [facility] PLT 324 140 - 400 K/uL 05/27/2023 5:00 AM EDT LAB[facility]ORY [facility] MPV 9.6 6.6 - 11.1 fL 05/27/2023 5:00 AM EDT LAB[facility]ATORY [facility] nRBCs 0 <=0 /100 WBCs 05/27/2023 5:00 AM EDT LAB[facility]ATORY [facility] Blood Venous blood specimen / Unknown Venipuncture / Unknown 05/27/2023 4:38 AM EDT 05/27/2023 4:48 AM EDT Tiffanie Loredo PA-C LAB BLOOD ORDERABLES LABORATORY [facility] [address] [place] [address] * (ABNORMAL) BLOOD GAS, VENOUS (05/26/2023 4:34 AM EDT) Temperature 37.0 C 05/26/2023 4:44 AM EDT LAB[facility]ATORY [facility] pH, Venous 7.395 7.320 - 7.430 units 05/26/2023 4:44 AM EDT LAB[facility]ATORY [facility] pCO2, Venous 28.3(L) 40.0 - 60.0 mmHg 05/26/2023 4:44 AM EDT LAB[facility]ATORY [facility] pO2, Venous 21.9(L) 25.0 - 50.0 mmHg 05/26/2023 4:44 AM EDT LABORATORY [facility] Base Excess, Venous -6.7(L) -2.0 - 2.0 mmol/L 05/26/2023 4:44 AM EDT LAB[facility]ATORY [facility] HGB 8.1(L) 12.0 - 15.3 g/dL 05/26/2023 4:44 AM EDT LAB[facility]ATORY [facility] Oxyhemoglobin, Venous 32.1(L) 40.0 - 85.0 % total Hgb 05/26/2023 4:44 AM EDT LAB[facility]ATORY [facility] Carboxyhemoglobi n, Whole Blood 1.2 <=1.5 % total Hgb 05/26/2023 4:44 AM EDT LAB[facility]ATORY [facility] Comment:Smokers: 0-9.0 % Methemoglobin, Whole Blood 0.4 <=1.5 % total Hgb 05/26/2023 4:44 AM EDT LAB[facility]ATORY [facility] Reduced Hemoglobin, Venous 66.3 % total Hgb 05/26/2023 4:44 AM EDT LAB[facility]ATORY [facility] O2 Content, Venous 3.7(L) 7.0 - 18.0 %vol 05/26/2023 4:44 AM EDT LAB[facility]ATORY [facility] Bicarbonate, Whole Blood 17.0(L) 23.0 - 31.0 mmol/L 05/26/2023 4:44 AM EDT LABORATORY [facility] Blood Venous blood specimen / Unknown Venipuncture / Unknown 05/26/2023 4:34 AM EDT 05/26/2023 4:40 AM EDT Tiffanie Sawyer Gertrude GONZALES LAB BLOOD ORDERABLES Performing Organization Address [facility]/ZIP Co de Phone Number LABORATORY [facility] [address] [place] [address] * CALCIUM, IONIZED (05/26/2023 4:34 AM EDT) Calcium, Ionized 1.16 1.13 - 1.32 mmol/L 05/26/2023 5:13 AM EDT LABORATORY [facility] Comment:This test was develo ped and its performance characteristics dtermined by [employer]. It has not been cleared or approved by the [place] Food and Drug Administration Blood Venous blood specimen / Unknown Venipuncture / Unknown 05/26/2023 4:34 AM EDT 05/26/2023 4:40 AM EDT Tiffanie Sawyer Gertrude PRINGLE-C LAB BLOOD ORDERABLES Performing Organization Address City/[facility] Co de Phone Number LABORATORY [facility] [address] [place] [address] * (ABNORMAL) BASIC METABOLIC PANEL (05/26/2023 4:33 AM EDT) BUN 39(H) 6 - 20 mg/dL 05/26/2023 7:16 AM EDT LABORATORY [facility] Creatinine 1.8(H) 0.5 - 1.0 mg/dL 05/26/2023 7:16 AM EDT LABORATORY [facility] Estimated Glomerular Filtration Rate 29(L) >=60 mL/min 05/26/2023 7:16 AM EDT LABORATORY [facility] Comment:eGFR is calculated b ased on the CKD-EPI 2020 equation Sodium 134(L) 135 - 146 mmol/L 05/26/2023 7:16 AM EDT LABORATORY C Potassium 4.3 3.5 - 5.1 mmol/L 05/26/2023 7:16 AM EDT LAB[facility]ATORY [facility] Chloride 105 98 - 107 mmol/L 05/26/2023 7:16 AM EDT LAB[facility]ATORY [facility] CO2 15(L) 22 - 32 mmol/L 05/26/2023 7:16 AM EDT LAB[facility]ATORY [facility] Anion Gap 14 7 - 15 mmol/L 05/26/2023 7:16 AM EDT LABORATORY C Glucose 123(H) 70 - 120 mg/dL 05/26/2023 7:16 AM EDT LAB[facility]ATORY [facility] Calcium 7.6(L) 8.4 - 10.2 mg/dL 05/26/2023 7:16 AM EDT LABORATORY C Blood Venous blood specimen / Unknown Venipuncture / Unknown 05/26/2023 4:33 AM EDT 05/26/2023 4:40 AM EDT Gato Doherty MD LAB BLOOD ORDERABLES Performing Organization Address [facility]/ZIP Co de Phone Number LABORATORY [facility] [address] [place] [address] * PHOSPHORUS (05/26/2023 4:33 AM EDT) Phosphorus 3.9 2.5 - 4.8 mg/dL 05/26/2023 5:09 AM EDT LABORATORY [facility] Blood Venous blood specimen / Unknown Venipuncture / Unknown 05/26/2023 4:33 AM EDT 05/26/2023 4:40 AM EDT Tiffanie Loredo PA-C LAB BLOOD ORDERABLES Performing Organization Address City/[facility]/ZIP Co de Phone Number LABORATORY [facility] [address] [place] [address] * MAGNESIUM (05/26/2023 4:33 AM EDT) Magnesium 1.7 1.5 - 2.6 mg/dL 05/26/2023 5:09 AM EDT LABORATORY [facility] Blood Venous blood specimen / Unknown Venipuncture / Unknown 05/26/2023 4:33 AM EDT 05/26/2023 4:40 AM EDT Tiffanie Loredo PA-C LAB BLOOD ORDERABLES LABORATORY [facility] [address] [place] [address] * (ABNORMAL) CULTURE, URINE, QUANTITATIVE (05/26/2023 4:19 AM EDT) Culture Growth >100,000 colonies/mL Escherichia coli(A) MICROBROTH DILUTIONS 05/29/2023 2:18 PM EDT LABORATORY [facility] Culture Growth >100,000 colonies/mL Enterococcus species(A) MICROBROTH DILUTIONS 05/29/2023 2:18 PM EDT LABORATORY [facility] Urine Urine specimen / Unknown Non-blood Collection / Unknown 05/26/2023 4:19 AM EDT 05/26/2023 4:19 AM EDT Narrative LABORATORY C - 05/29/2023 2:18 PM EDT <10,000 colonies/ml mixed normal lópez Organism Antibiotic Method Susceptibility Escherichia coli Ampicillin MICROBROTH DILUTIONS 4: Susceptible Escherichia coli Cefazolin MICROBROTH DILUTIONS <=4: Susceptible Escherichia coli Cefepime MICROBROTH DILUTIONS <=1: Susceptible Escherichia coli Ceftriaxone MICROBROTH DILUTIONS <=1: Susceptible Escherichia coli Ciprofloxacin MICROBROTH DILUTIONS <=0.25: Susceptible Comment:Due to gina us side effects, the FDA has advised against using Ciprofloxacin to treat uncomplicated UTIs and respiratory tract infections unless there are no alternative treatment options. Escherichia coli Gentamicin MICROBROTH DILUTIONS <=1: Susceptible Escherichia coli Nitrofurantoin MICROBROTH DILUTIONS <=16: Susceptible Escherichia coli Piperacillin Tazobactam MICROBR OTH DILUTIONS <=4: Susceptible Escherichia coli Trimeth/Sulfamethoxa zol e MICROBROTH DILUTIONS <=20: Susceptible Enterococcus species Ampicillin MICROBROTH DILUTIONS <=2: Susceptible Enterococcus species Nitrofurantoin MICROBROTH DILUTIONS <=16: Susceptible Enterococcus species Tetracycline MICROBROTH DILUTIONS >=16: Resistant Enterococcus species Vancomycin MICROBROTH DILUTIONS 1: Susceptible Martinez Guerrero MD LAB MICRO - GENERAL ORDERABLES LABORATORY [facility] [address] [place] [address] * (ABNORMAL) CULTURE, URINE, QUANTITATIVE (05/26/2023 3:28 AM EDT) Culture Growth >100,000 colonies/mL Enterococcus species(A) MICROBROTH DILUTIONS 05/29/2023 1:29 PM EDT LABORATORY [facility] Culture Growth 1000 to 9999 colonies/mL Yeast(A) MICROBROTH DILUTIONS 05/29/2023 1:29 PM EDT LABORATORY [facility] Culture Growth >100,000 colonies/mL Streptococcus anginosus group(A) MICROBROTH DILUTIONS 05/29/2023 1:29 PM EDT LABORATORY [facility] Culture Growth 10,000 to 100,000 colonies/mL Escherichia coli(A) MICROBROTH DILUTIONS 05/29/2023 1:29 PM EDT LABORATORY [facility] Urine (Urine, Renal Pelvis) Non-blood Collection / Unknown 05/26/2023 3:28 AM EDT 05/26/2023 3:45 AM EDT Narrative Organism Antibiotic Method Susceptibility Enterococcus species Ampicillin MICROBROTH DILUTIONS <=2: Susceptible Enterococcus species Nitrofurantoin MICROBROTH DILUTIONS <=16: Susceptible Enterococcus species Tetracycline MICROBROTH DILUTIONS >=16: Resistant Enterococcus species Vancomycin MICROBROTH DILUTIONS 1: Susceptible Escherichia coli Ampicillin MICROBROTH DILUTIONS 4: Susceptible Escherichia coli Cefazolin MICROBROTH DILUTIONS <=4: Susceptible Escherichia coli Cefepime MICROBROTH DILUTIONS <=1: Susceptible Escherichia coli Ceftriaxone MICROBROTH DILUTIONS <=1: Susceptible Escherichia coli Ciprofloxacin MICROBROTH DILUTIONS <=0.25: Susceptible Comment:Due to gina us side effects, the FDA has advised against using Ciprofloxacin to treat uncomplicated UTIs and respiratory tract infections unless there are no alternative treatment options. Escherichia coli Gentamicin MICROBROTH DILUTIONS <=1: Susceptible Escherichia coli Nitrofurantoin MICROBROTH DILUTIONS <=16: Susceptible Escherichia coli Piperacillin Tazobactam MICROBR OTH DILUTIONS <=4: Susceptible Escherichia coli Trimeth/Sulfamethoxa zol e MICROBROTH DILUTIONS <=20: Susceptible Tiffanie Loredo PA-C LAB MICRO - GENERAL ORDERABLES LABORATORY [facility] [address] [place] [address] * EXTRA URINE (05/26/2023 3:22 AM EDT) Urine Urine specimen / Unknown 05/26/2023 3:22 AM EDT 05/26/2023 3:48 AM EDT Martinez Guerrero MD LAB URINE ORDERABLES LABORATORY [facility] [address] [place] [address] * (ABNORMAL) URINALYSIS, REFLEX TO MICROSCOPIC (05/26/2023 3:22 AM EDT) Color, Urine Light Yellow Colorless, Light Yellow, Yellow, Dark Yellow 05/26/2023 4:29 AM EDT LABORATORY [facility] Clarity, Urine Slightly Cloudy(A) Clear 05/26/2023 4:29 AM EDT LABORATORY [facility] Glucose, Urine Negative Negative mg/dL 05/26/2023 4:29 AM EDT LABORATORY [facility] Bilirubin, Urine Negative Negative 05/26/2023 4:29 AM EDT LABORATORY C Ketone, Urine Negative Negative mg/dL 05/26/2023 4:29 AM EDT LABORATORY [facility] Specific Hood, Urine 1.031(H) 1.003 - 1.030 05/26/2023 4:29 AM EDT LABORATORY [facility] Blood, Urine Moderate(A) Negative 05/26/2023 4:29 AM EDT LABORATORY [facility] pH, Urine 6.0 5.0 - 7.5 Units 05/26/2023 4:29 AM EDT LABORATORY C Protein, Urine 30(A) Negative mg/dL 05/26/2023 4:29 AM EDT LABORATORY [facility] Urobilinogen, Urine Normal Normal mg/dL 05/26/2023 4:29 AM EDT LABORATORY C Nitrite, Urine Negative Negative 05/26/2023 4:29 AM EDT LABORATORY C Esterase, Urine Small(A) Negative 05/26/2023 4:29 AM EDT LABORATORY [facility] RBC, Urine 20-29(A) 0 - 2 /HPF 05/26/2023 4:29 AM EDT LABORATORY C WBC, Urine 50+(A) 0 - 2 /HPF 05/26/2023 4:29 AM EDT LABORATORY C Bacteria, Urine 26-50(A) 0 - 25 /HPF 05/26/2023 4:29 AM EDT LABORATORY GM WBC Clumps, Urine Present(A) None /HPF 05/26/2023 4:29 AM EDT LABORATORY [facility] Urine Urine specimen obtained from urinary collection bag / Unknown Non-blood Collection / Unknown 05/26/2023 3:22 AM EDT 05/26/2023 3:44 AM EDT Tiffanie Loredo PA-C LAB URINE ORDERABLES Performing Organization Address [facility]/ZIP Co de Phone Number LABORATORY [facility] [address] [place] [address] * MRSA SCREEN, PCR (05/26/2023 3:22 AM EDT) [facility] MRSA PCR Result Negative Negative 5:56 AM EDT LABORATORY [facility] Comment:No Methicillin resis tant Staphylococcus aureus detected by PCR (amplified probe). Upper Respiratory Swab of internal nose / Unknown Non-blood Collection / Unknown 05/26/2023 3:22 AM EDT 05/26/2023 4:05 AM EDT Tiffanie Loredo PA-C LAB MICRO - GENERAL ORDERABLES Performing Organization Address [facility] de Phone Number LABORATORY [facility] [address] [place] [address] documented in this encounter Visit Diagnoses Diagnosis Neutropenic sepsis (HCC) Unspecified septicemia Chest pain Chest pain, unspecified Septic shock (HCC) Unspecified septicemia Obstructive uropathy Urinary obstruction, unspecified documented in this encounter Administered Medications Inactive Administered Medications - up to 3 most recent administrations Medication Order MAR Action Action Date Dose Rate Site ampicillin-sulbactam in NSS (Unasyn) ivpb 3 g 3 g, IV Piggyback, Q8H, 14 doses, First dose (after last reorder) on Sat05/28/23 at 1400, Last dose on 06/01/23 at 2200, MIX BEFORE ADMINISTERING! Restarted 05/29/2023 5:23 AM EDT 6 g/hr 220 mL/hr New Bag 05/29/2023 5:06 AM EDT 3 g 220 mL/hr Rate Verify 05/28/2023 10:00 PM EDT 6 g/hr 220 mL/hr ampicillin-sulbactam in NSS (Unasyn) ivpb 3 g 3 g, IV Piggyback, Q8H, 20 doses, First dose (after last modification) on Sat05/29/23 at 1400, Last dose on Sat06/04/23 at 2200, MIX BEFORE ADMINISTERING! New Bag 05/30/2023 6:19 AM EDT 3 g 220 mL/hr New Bag 05/29/2023 10:19 PM EDT 3 g 220 mL/hr New Bag 05/29/2023 2:01 PM EDT 3 g 220 mL/hr Calcium Carbonate 500 mg + Vitamin D 5 mcg (200 units) per tab 1 Tablet, Oral, DAILY NOON, First dose on Sat05/26/23 at 1200, Until Discontinued, Vitamin D 200 units = 5 mcg Given 05/30/2023 12:17 PM EDT 1 Tablet Given 05/29/2023 2:05 PM EDT 1 Tablet Given 05/28/2023 11:29 AM EDT 1 Tablet chlorHEXIDINE (Periogard) 0.12 % oral rinse 15 mL 15 mL, Oral mucosal membrane, BID (799,1999), First dose on Sat05/26/23 at 0800, Until Discontinued, Include oral/gum/tooth brushing with medication. Use prepackaged oral kit suction tooth brush if available. Given 05/30/2023 8:00 AM EDT 15 mL Given 05/29/2023 8:00 PM EDT 15 mL Given 05/29/2023 9:01 AM EDT 15 mL Docusate Sodium (Colace) cap 100 mg 100 mg, Oral, DAILY PRN Constipation, Starting on Sat05/29/23 at 1130, Until Sat05/30/23 at 1825, For oral administration ONLY, if route of administration is other than oral and alternative product must be ordered. Filgrastim-aafi (Nivestym) inj 480 mcg 480 mcg, Subcutaneous, MTTF, First dose (after last reorder) on Sat05/28/23 at 1600, Until Discontinued Given 05/28/2023 4:43 PM EDT 480 mcg Abdomen Left Lower Filgrastim-sndz (Zarxio) inj 480 mcg (Patients Own Med) 480 mcg, Subcutaneous, [id number], First dose on Sat05/27/23 at 1500, Last dose on Sat05/27/23 at 1500, For 1 dose, In Refrigerator Given 05/27/2023 2:27 PM EDT 480 mcg Thigh Right fluticasone (Flonase) nasal inhaler 2 [place] 2 [place], Each Nostril, Daily(AM), First dose on Sat05/26/23 at 0900, Until Discontinued, 50 mcg / Actuation Given 05/30/2023 8:40 AM EDT 2 Sprays Given 05/29/2023 9:00 AM EDT 2 Sprays Given 05/28/2023 7:55 AM EDT 2 Sprays hEParin inj 5,000 Units 5,000 Units, Subcutaneous, Q8H, First dose on Sat05/26/23 at 1400, Until Discontinued Given 05/30/2023 6:19 AM EDT 5,000 Units Abdomen Left Lower Given 05/29/2023 10:22 PM EDT 5,000 Units Abdomen Left Lower Given 05/29/2023 2:04 PM EDT 5,000 Units A bdomen Left Lower isolyte 1,000 mL bolus infusion Intravenous, Administer entire volume within 60 minutes or less. Plasma-LYTE 148, isolyte-S, and isolyte-S pH 7.4 are considered equivalent - including for MAR barcode scanning., ONCE, 1 dose, On Sat05/27/23 at 1300 Rate Verify 05/27/2023 3:08 PM EDT 500 mL/hr New Bag 05/27/2023 1:57 PM EDT 1,000 mL 500 mL/hr isolyte 500 mL bolus infusion Intravenous, Administer entire volume within 60 minutes or less. Plasma-LYTE 148, isolyte-S, and isolyte-S pH 7.4 are considered equivalent - including for MAR barcode scanning., ONCE, 1 dose, On Sat05/27/23 at 2145 New Bag 05/27/2023 9:30 PM EDT 500 mL 500 mL/hr isolyte-S pH 7.4 infusion Intravenous, Plasma-LYTE 148, isolyte-S, and isolyte-S pH 7.4 are considered equivalent - including for MAR barcode scanning., CONTINUOUS, Starting on Sat05/26/23 at 0445, Until Sat05/26/23 at 0420 New Bag 05/26/2023 4:09 AM EDT 1,000 mL 75 mL/hr isolyte-S pH 7.4 infusion Intravenous, at 100 mL/hr, Plasma-LYTE 148, isolyte-S, and isolyte-S pH 7.4 are considered equivalent - including for MAR barcode scanning., CONTINUOUS, Starting on Sat05/26/23 at 0500, Until Sat05/28/23 at 1340 Restarted 05/28/2023 1:32 PM EDT 100 mL /hr Restarted 05/28/2023 12:36 PM EDT 100 mL/hr Rate Verify 05/28/2023 10:00 AM EDT 100 mL/hr Loratadine (Claritin) tab 10 mg 10 mg, Oral, HS, First dose on Sat05/26/23 at 2200, Until Discontinued Given 05/29/2023 10:20 PM EDT 10 mg Given 05/28/2023 9:45 PM EDT 10 mg Given 05/27/2023 9:30 PM EDT 10 mg magnesium sulfate 1 g in d5w 100mL LOCKED DOSE 1 g, IV Piggyback, ONCE, 1 dose, On Sat05/26/23 at 0545, Administer over 60 Minutes New 05/26/2023 5:50 AM EDT 1 g 100 mL/hr magnesium sulfate 1 g in d5w 100mL LOCKED DOSE 1 g, IV Piggyback, ONCE, 1 dose, On Sat05/28/23 at 0615, Administer over 60 Minutes New 05/28/2023 6:22 AM EDT 1 g 100 mL/hr magnesium sulfate 1 g in d5w 100mL LOCKED DOSE 1 g, IV Piggyback, Q1H, 2 doses, First dose on Sat05/30/23 at 0700, Last dose on Sat05/30/23 at 0800, Administer over 60 Minutes, Total dose is 2g New Bag 05/30/2023 8:40 AM EDT 1 g 100 mL/hr Rate Verify 05/30/2023 7:00 AM EDT 1 g/hr 100 mL/hr New Bag 05/30/2023 6:53 AM EDT 1 g 100 mL/hr melatonin tab 3 mg 3 mg, Oral, HS, First dose on Sat05/26/23 at 2200, Until Discontinued Given 05/29/2023 10:20 PM EDT 3 mg Given 05/28/2023 9:44 PM EDT 3 mg Given 05/27/2023 9:30 PM EDT 3 mg NORepinephrine (Levophed) 4 mg in 250 ml D5W STANDARD CONCENTRATION 16 mcg/ml Order Mode: Standard Titration, Starting Rate (mcg/min): 5, Clinical Target: MAP 65-70, Infusion Titration Adjustments: Increase or Decrease by up to 5 mcg/min no more frequently than every 2 minutes to achieve specified goal, Maximum Dose: 30 mcg/min for nurse titration. Dose titrations 31-90 mcg/min require provider order. If administering vasopressor peripherally, please refer to the Peripheral Vasopressor Guidelines., Patient Transfer: Patient should be transferred to a higher level of care if rate exceeds nursing unit specific guidelines., 0-30 mcg/min (0-112.5 mL/hr), TITRATE, Starting on Sat05/26/23 at 0330, Until Sat05/28/23 at 0538, Peripheral IV Rate Verify 05/27/2023 3:08 PM EDT 1 mcg/min 3.75 mL/hr Rate Change 05/27/2023 1:50 PM EDT 1 mcg/min 3.75 mL/hr Rate Verify 05/27/2023 11:16 AM EDT 2 mcg/min 7.5 mL/hr Oral Hygiene: Mouth Swab with dentifrice Oral, Q4H LIMITED (00;04;12;16), First dose on Sat05/26/23 at 0400, Until Discontinued, To be used with 1.5% hydrogen peroxide solution or 0.05% cetylpyridium chloride oral rinse Given 05/30/2023 12:00 PM EDT Given 05/30/2023 4:00 AM EDT Given 05/29/2023 8:26 PM EDT 1 Kit Piperacillin-Tazobactam (Zosyn) 4.5 g in 100 mL NSS ivpb (FOUR hour infusion) IV Piggyback, 4.5 g, Q8HNOW, 15 doses, First dose on Sat05/26/23 at 0815, Last dose on Sat05/31/23 at 0015, Administer over 4 Hours, at 27.5 mL/hr Restarted 05/28/2023 12:36 PM EDT 1.125 g/hr 27.5 mL/hr Restarted 05/28/2023 12:12 PM EDT 1.125 g/hr 27.5 mL/hr Rate Verify 05/28/2023 10:00 AM EDT 1.125 g/hr 27.5 mL/hr Piperacillin-Tazobactam (Zosyn) 4.5 g in 100 mL NSS ivpb (HALF hour infusion) IV Piggyback, 4.5 g, ONCE, 1 dose, On Sat05/26/23 at 0345, Administer over 30 Minutes New Bag 05/26/2023 3:43 AM EDT 4.5 g 220 mL/hr Polyethylene Glycol 3350 (Miralax) oral powder 17 g 17 g, Oral, DAILY PRN Constipation, Starting on Sat05/29/23 at 1130, Until Sat05/30/23 at 1825 potassium and sodium phosphate (Phos-Nak) oral powder 1 Packet 1 Packet, Oral, ONCE, On Sat05/29/23 at 0600, For 1 dose, Mix 1 packet in 2.5 ounces (75 mL) of water, stir well and administer promptly. 1 packet contains Phosphorus 250 mg (~8 mMoles) + potassium 280 mg (~7.125 mEq) + sodium 160mg (~7.125 mEq) Given 05/29/2023 5:25 AM EDT 1 Packet potassium and sodium phosphate (Phos-Nak) oral powder 2 Packet 2 Packet, Oral, ONCE, On Sat05/30/23 at 0630, For 1 dose, Mix 1 packet in 2.5 ounces (75 mL) of water, stir well and administer promptly. 1 packet contains Phosphorus 250 mg (~8 mMoles) + potassium 280 mg (~7.125 mEq) + sodium 160mg (~7.125 mEq) Given 05/30/2023 6:14 AM EDT 2 Packets potassium chloride ER tab 40 mEq 40 mEq, Oral, ONCE, On Sat05/28/23 at 0615, For 1 dose, This med should NOT be Crushed or Chewed Given 05/28/2023 7:50 AM EDT 40 mEq potassium chloride ER tab 40 mEq 40 mEq, Oral, ONCE, On Sat05/29/23 at 0600, For 1 dose, This med should NOT be Crushed or Chewed Given 05/29/2023 5:25 AM EDT 40 mEq potassium chloride ER tab 40 mEq 40 mEq, Oral, ONCE, On Sat05/30/23 at 0630, For 1 dose, This med should NOT be Crushed or Chewed Given 05/30/2023 6:15 AM EDT 40 mEq senna (Senokot) 2 Tablet 2 Tablet, Oral, Daily(AM), First dose on Sat05/26/23 at 0900, Until Discontinued Given 05/26/2023 8:14 AM EDT 2 Tablets senna (Senokot) 2 Tablet 2 Tablet, Oral, DAILY PRN Constipation, Starting on Sat05/29/23 at 1115, Until Sat05/30/23 at 1825 sodium chloride 0.9 % flush peripheral rossana 3 mL 3 mL, IV Push, Q8H, First dose on Sat05/26/23 at 0600, Until Discontinued, Do not flush if lock, PICC, or central line not in place; IV infusing or unable to flush. Given 05/30/2023 2:00 PM EDT 3 mL Given 05/30/2023 6:00 AM EDT 3 mL Given 05/29/2023 10:00 PM EDT 3 mL documented in this encounter Active and Recently Administered Medications Times are shown in EDT. Scheduled Medication Order 05/28/2023 05/29/2023 05/30/2023 ampicillin-sulbactam in NSS (Unasyn) ivpb 3 g (CANCELED) 3 g, IV Piggyback, Q8H, 14 doses, First dose (after last reorder) on Sat05/28/23 at 1400, Last dose on Sat06/01/23 at 2200, MIX BEFORE ADMINISTERING! 1405 (New Bag - Provider: Santos Jurado RN)1405 (Paused - Provider: Santos Jurado RN)1448 (Restarted - Provider: Santos Jurado RN)1456 (Paused - Provider: Santos Jurado, CHRISTIAN)1510 (Restarted - Provider: Santos Jurado RN)1510 (Paused - Provider: Santos Jurado RN)1512 (Restarted - Provider: Santos Jurado, CHRISTIAN)1521 (Paused - Provider: Santos Jurado RN)1525 (Restarted - Provider: Santos Jurado RN)1531 (Paused - Provider: Santos Jurado, RN)1536 (Restarted - Provider: Santos Jurado, RN)1542 (Paused - Provider: Santos Jurado, RN)1546 (Restarted - Provider: Santos Jurado, RN)1551 (Stopped - Provider: Santos Jurado, RN)2149 (New Bag - Provider: Dagoberto Valdez, RN)2200 (Rate Verify - Provider: Dagoberto Valdez, RN)221 (Stopped - Provider: Dagoberto Valdez, RN) 0506 (New Bag - Provider: Dagoberto Valdez, RN)0510 (Paused - Provider: Dagoberto Valdez, RN)0523 (Restarted - Provider: Dagoberto Valdez, RN)0549 (Stopped - Provider: Dagoberto Valdez, RN) ampicillin-sulbactam in NSS (Unasyn) ivpb 3 g 3 g, IV Piggyback, Q8H, 20 doses, First dose (after last modification) on Sat05/29/23 at 1400, Last dose on Sat06/04/23 at 2200, MIX BEFORE ADMINISTERING! 1401 (New Bag - Provider: Carly Douglas, CHRISTIAN)1431 (Stopped - Provider: Obdulia Lentz RN)2219 (New Bag - Provider: Obdulia Lentz, CHRISTIAN)2248 (Stopped - Provider: Obdulia Lentz, RN) 0619 (New Bag - Provider: Obdulia Lentz, RN)0649 (Stopped - Provider: Obdulia Lentz, CHRISTIAN)1400 (Due) Calcium Carbonate 500 mg + Vitamin D 5 mcg (200 units) per tab 1 Tablet, Oral, DAILY NOON, First dose on Sat05/26/23 at 1200, Until Discontinued, Vitamin D 200 units = 5 mcg 1129 (Given - Provider: Jean Claude Kinney RN) 1405 (Given - Provider: Carly M Stella, RN) 1217 (Given - Provider: Lizz Quan, CHRISTIAN) chlorHEXIDINE (Periogard) 0.12 % oral rinse 15 mL 15 mL, Oral mucosal membrane, BID (799,1999), First dose on Sat05/26/23 at 0800, Until Discontinued, Include oral/gum/tooth brushing with medication. Use prepackaged oral kit suction tooth brush if available. 0755 (Given - Provider: Santos Jurado RN)2014 (Given - Provider: Dagoberto Valdez RN) 09 (Given - Provider: Carly Douglas, CHRISTIAN)1999 (Given - Provider: Obduila Lentz, CHRISTIAN) 08 (Given - Provider: Lizz Quan, CHRISTIAN) Filgrastim-aafi (Nivestym) inj 480 mcg 480 mcg, Subcutaneous, MTTF, First dose (after last reorder) on Sat05/28/23 at 1600, Until Discontinued 1643 (Given - Provider: Santos Jurado RN) fluticasone (Flonase) nasal inhaler 2 [place] 2 [place], Each Nostril, Daily(AM), First dose on Sat05/26/23 at 0900, Until Discontinued, 50 mcg / Actuation 0755 (Given - Provider: Santos Jurado RN) 09 (Given - Provider: Carly Douglas, CHRISTIAN) 0840 (Given - Provider: Lizz Quan, CHRISTIAN) hEParin inj 5,000 Units 5,000 Units, Subcutaneous, Q8H, First dose on Sat05/26/23 at 1400, Until Discontinued 0510 (Given - Provider: Tamera Alexis RN)1409 (Given - Provider: Santos Jurado RN)2103 (Given - Provider: Dagoberto Valdez, CHRISTIAN) 0503 (Given - Provider: Dagoberto Valdez, CHRISTIAN)1404 (Given - Provider: Carly Douglas, CHRISTIAN)2222 (Given - Provider: Obdulia Lentz, CHRISTIAN) 0619 (Given - Provider: Obdulia Lentz, RN)1400 (Due) Loratadine (Claritin) tab 10 mg 10 mg, Oral, HS, First dose on Sat05/26/23 at 2200, Until Discontinued 214 (Given - Provider: Dagoberto Valdez RN) 2220 (Given - Provider: Obdulia Lentz RN) magnesium sulfate 1 g in d5w 100mL LOCKED DOSE (COMPLETED) 1 g, IV Piggyback, ONCE, 1 dose, On Sat05/28/23 at 0615, Administer over 60 Minutes 0622 (New Bag - Provider: Tamera Alexis RN)0722 (Stopped - Provider: Santos Jurado, CHRISTIAN) magnesium sulfate 1 g in d5w 100mL LOCKED DOSE (COMPLETED) 1 g, IV Piggyback, Q1H, 2 doses, First dose on Sat05/30/23 at 0700, Last dose on Sat05/30/23 at 0800, Administer over 60 Minutes, Total dose is 2g 0653 (New Bag - Provider: Obdulia Lentz RN)0700 (Rate Verify - Provider: Obdulia Lentz RN)0753 (Stopped - Provider: Lizz Quan, CHRISTIAN)0840 (New Bag - Provider: Lizz Quan, CHRISTIAN)0940 (Stopped - Provider: Lizz Quan, CHRISTIAN) melatonin tab 3 mg 3 mg, Oral, HS, First dose on Sat05/26/23 at 2200, Until Discontinued 2143 (Given - Provider: Dagoberto Valdez RN) 222 (Given - Provider: Obdulia Lentz RN) Oral Hygiene: Mouth Swab with dentifrice Oral, Q4H LIMITED (00;04;12;16), First dose on Sat05/26/23 at 0400, Until Discontinued, To be used with 1.5% hydrogen peroxide solution or 0.05% cetylpyridium chloride oral rinse 0000 (Not Given - Provider: Tamera Alexis RN - Reason: Refused-Notify Provider - Comment: will repeat in the am)0510 (Given - Provider: Tamera Alexis RN)1200 (Given - Provider: Jean Claude Kinney RN)1643 (Given - Provider: Santos Jurado, CHRISTIAN) 0000 (Given - Provider: Dagoberto Valdez RN)0400 (Given - Provider: Dagoberto Valdez RN)1305 (Given - Provider: Carly Douglas RN)1600 (Given - Provider: Guillermina Chi RN)2026 (Given - Provider: Obdulia Lentz, CHRISTIAN) 0400 (Given - Provider: Obdulia Lentz, RN)1200 (Given - Provider: Lizz Quan, CHRISTIAN) Piperacillin-Tazobactam (Zosyn) 4.5 g in 100 mL NSS ivpb (FOUR hour infusion) (CANCELED) IV Piggyback, 4.5 g, Q8HNOW, 15 doses, First dose on Sat05/26/23 at 0815, Last dose on Sat05/31/23 at 0015, Administer over 4 Hours, at 27.5 mL/hr 0049 (New Bag - Provider: Tamera Alexis, CHRISTIAN)0800 (New Bag - Provider: Santos Jurado RN)0803 (Paused - Provider: Santos Jurado RN)0805 (Restarted - Provider: Santos Jurado RN)1000 (Rate Verify - Provider: Santos Jurado RN)1114 (Stopped - Provider: Santos Jurado RN)1212 (Restarted - Provider: Santos Jurado RN)1226 (Paused - Provider: Santos Jurado RN)1236 (Restarted - Provider: Santos Jurado, CHRISTIAN)1310 (Stopped - Provider: Santos Jurado RN) potassium and sodium phosphate (Phos-Nak) oral powder 1 Packet (COMPLETED) 1 Packet, Oral, ONCE, On Sat05/29/23 at 0600, For 1 dose, Mix 1 packet in 2.5 ounces (75 mL) of water, stir well and administer promptly. 1 packet contains Phosphorus 250 mg (~8 mMoles) + potassium 280 mg (~7.125 mEq) + sodium 160mg (~7.125 mEq) 0525 (Given - Provider: Dagoberto Valdez, CHRISTIAN) potassium and sodium phosphate (Phos-Nak) oral powder 2 Packet (COMPLETED) 2 Packet, Oral, ONCE, On Sat05/30/23 at 0630, For 1 dose, Mix 1 packet in 2.5 ounces (75 mL) of water, stir well and administer promptly. 1 packet contains Phosphorus 250 mg (~8 mMoles) + potassium 280 mg (~7.125 mEq) + sodium 160mg (~7.125 mEq) 0614 (Given - Provider: Obdulia Lentz, CHRISTIAN) potassium chloride ER tab 40 mEq (COMPLETED) 40 mEq, Oral, ONCE, On Sat05/28/23 at 0615, For 1 dose, This med should NOT be Crushed or Chewed 0750 (Given - Provider: Santos Jurado, RN) potassium chloride ER tab 40 mEq (COMPLETED) 40 mEq, Oral, ONCE, On Sat05/29/23 at 0600, For 1 dose, This med should NOT be Crushed or Chewed 0525 (Given - Provider: Dagoberto Valdez, CHRISTIAN) potassium chloride ER tab 40 mEq (COMPLETED) 40 mEq, Oral, ONCE, On Sat05/30/23 at 0630, For 1 dose, This med should NOT be Crushed or Chewed 0615 (Given - Provider: Obdulia Lentz RN) sodium chloride 0.9 % flush peripheral rossana 3 mL 3 mL, IV Push, Q8H, First dose on Sat05/26/23 at 0600, Until Discontinued, Do not flush if lock, PICC, or central line not in place; IV infusing or unable to flush. 0510 (Given - Provider: Tamera Alexis RN)1400 (Given - Provider: Santos Jurado, CHRISTIAN)2200 (Given - Provider: Dagoberto Valdez, CHRISTIAN) 0504 (Given - Provider: Dagoberto Valdez RN)1401 (Given - Provider: Carly Douglas, CHRISTIAN)2200 (Given - Provider: Obdulia Lentz, CHRISTIAN) 0600 (Given - Provider: Obdulia Lentz, CHRISTIAN)1400 (Given - Provider: Lizz Quan RN) Continuous Medication Order 05/28/2023 05/29/2023 05/30/2023 isolyte-S pH 7.4 infusion (CANCELED) Intravenous, at 100 mL/hr, Plasma-LYTE 148, isolyte-S, and isolyte-S pH 7.4 are considered equivalent - including for MAR barcode scanning., CONTINUOUS, Starting on Sat05/26/23 at 0500, Until Sat05/28/23 at 1340 0716 (Paused - Provider: Santos Jurado, CHRISTIAN)0721 (Restarted - Provider: Santos Jurado RN)0721 (Stopped - Provider: Santos Jurado RN)0722 (New Bag - Provider: Artur Cano RN)0803 (Paused - Provider: Santos Jurado RN)0806 (Restarted - Provider: Santos Jurado RN)1000 (Rate Verify - Provider: Santos Jurado RN)1114 (Stopped - Provider: Santos Jurado RN)1236 (Restarted - Provider: Santos Jurado RN)1329 (Paused - Provider: Santos Jurado RN)1332 (Restarted - Provider: Santos Jurado RN)1333 (Stopped - Provider: Santos Jurado RN) PRN Medication Order 05/28/2023 05/29/2023 05/30/2023 Acetaminophen (Tylenol) tab 650 mg 650 mg, Oral, Q4H PRN Pain, Mild, Fever >38C(100.5F), Starting on Sat05/26/23 at 0258, Until Elsy 05/30/23 at 1825, Maximum of 4 grams (4000 mg) per day. Docusate Sodium (Colace) cap 100 mg 100 mg, Oral, DAILY PRN Constipation, Starting on Sat05/29/23 at 1130, Until Elsy 05/30/23 at 1825, For oral administration ONLY, if route of administration is other than oral and alternative product must be ordered. Polyethylene Glycol 3350 (Miralax) oral powder 17 g 17 g, Oral, DAILY PRN Constipation, Starting on Sat05/29/23 at 1130, Until Elsy 05/30/23 at 1825 senna (Senokot) 2 Tablet 2 Tablet, Oral, DAILY PRN Constipation, Starting on Sat05/29/23 at 1115, Until Elsy 05/30/23 at 1825 documented in this encounter Advance Directives Latest [...] and were consensually agreed upon. Care Teams Historiographer Relationship Specialty Start Date End Date Kvng Lizarraga MD [address] [facility] [place] [address] PCP - General Internal Medicine 03/10/12 documented as of this encounter
--- OUTSIDE RECORDS SUMMARY | 2023-06-30 22:48 | External Medical Summary | Summary of Care ---
Author Name Unknown Organization [facility] Address [address] [facility] [place] [address] Phone [phone] Care Team Providers Care Reception Centre Manager Name Role Phone Nichole Campbell MD Primary Care Provider + Reason for Visit * Reason Onset Date Comments Appointment 06/06/2023 Encounter Details Date Type Department Care Team (Late st Contact Info) Description 06/06/2023 Telephone Hematology/Oncology [facility] [place] [address] [place] [phone] Aguilar Campbell MD [address] [place] [address] Appointment Allergies Active Allergy Reactions Criticality Noted Date Comments Penicillins Edema airway,Rash High 03/10/2012 Last dose age 14 Tolerated Ancef Pollen 01/17/2021 Ragweed 11/05/2022 documented as of this encounter (statuses as of 06/06/2023) Medications Medication Sig Dispensed Refills Start Date [...] 10/16/2016 Active fluticasone (FLONASE) 50 MCG/ACT nasal sprayIndications:Certified Health Education Specialist 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 1 Inhaler 5 04/21/2018 Active Additional Information Patient taking differently:2 Julian Each NostrilPRN, Allergies, Informant: Patient, Reported on [...] as of this encounter (statuses as of 06/06/2023) Active Problems Problem Noted Date Diagnosed Date [...] as of this encounter (statuses as of 06/06/2023) Resolved Problems Problem Noted Date Diagnosed Date Resolved Date Septic shock 05/26/2023 05/30/2023 Chronic kidney disease, stage 3b 04/30/2022 05/01/2023 Overview: Per CKD protocol Chronic kidney disease, stage 3a 05/29/2021 05/02/2022 Overview: Per CKD protocol Fever 09/13/2015 10/21/2017 Kidney stone on left side Inguinal hernia 10/21/2017 Overview: Surgical repair documented as of this encounter (statuses as of 06/06/2023) Immunizations Name Administration Dates Next Due COVID-19 mRNA, LNP-s, No Pre serve, 2-Dose Series ([employer]) 01/05/2021,05/07/2020,04/16/2020 COVID-19, LNP-s, No Preserve , Jasbir-sucrose, Ages 12+ (Pfizer) 09/06/2021 Covid-19, Mrna, Lnp-s, Pf, B ivalent, 30 Mcg, IM, 12 yrs and above ([employer]erBright) 01/31/2022 PPD 02/19/2017 Pneumococcal Conjugate Vacc, 13 [...] encounter Miscellaneous Notes * Telephone Encounter - Liliane Yeager OSA - 06/06/2023 9:13 AM EDT Patient called back and confirmed appt with dr campbell. * Telephone Encounter - Hazel Burkett OSA - 06/06/2023 7:57 AM EDT Called left message for pt to call in to confirm apt Pt is scheduled for 06/19 at 1:[address] Campbell. * Telephone Encounter - Hazel Burkett OSA - 06/06/2023 7:57 AM EDT ----- Message from Aguilar Campbell MD sent at 06/05/2023 3:43 PM EDT ----- Heme-Onc scheduling pool: Recently in April of 2023, she had surgery for the bladder cancer. Postoperatively she had infection Because of stent blockage. I would like to see her in the clinic in the next few weeks. ( 2 to 3 weeks). [address] Aguilar Campbell Hem/Onc documented in this encounter Plan of Treatment Upcoming Encounters Date Type Department Care Team (Late st Contact Info) Description 06/20/2023 1:45 PM EDT Office Visit Hematology/Oncology [facility] [address] [place] [address] [phone] Aguilar Campbell MD [address] [facility] [address] [place] [address] 06/24/2023 10:40 AM EDT Office Visit Nephrology, [facility] [address] [place] [address] Demetrius Sherman MD [address] [facility] [place] [address] 07/04/2023 10:30 AM EDT Imaging Radiology [facility] [facility] [place] [address] [facility] [place] [address] 07/25/2023 11:00 AM EDT Office Visit Hematology/Oncology [facility] [place] [address] [facility] [address] [place] [phone] Deyanira Lauren CRNP [address] [facility] [address] 11/12/2023 9:20 AM EDT Office Visit General Internal Medicine [facility] [address] [facility] [address] [place] [address] Nichole Campbell MD [address] [facility] [place], [place] [address] Health Maintenance Due Date Last Done Comments [...] Additional history exists CKD HGB USE SMARTSET 34729 05/29/202405/29, 05/29/2023, 05/28/2023, Additional history exists CKD PHOS USE SMARTSET 05886 05/29/202405/19, 05/29/2023, 05/28/2023, Additional history exists DXA [...] and were consensually agreed upon. Care Teams Reception Centre Manager Relationship Specialty Start Date End Date Nichole Campbell MD [address] [place] [address] PCP - General Internal Medicine 03/10/12 documented as of this encounter
--- OUTSIDE RECORDS SUMMARY | 2023-06-30 22:48 | External Medical Summary | Summary of Care ---
Author Name Unknown Organization [facility] Address [address] [place] [address] Phone [phone] Care Team Providers Care Earth Moving Machine Operator Name Role Phone Nichole Lizarraga MD Primary Care Provider + Encounter Details Date Type Department Care Team (Late st Contact Info) Description 05/30/2023 Telephone [facility] Urology [address] [place] [address] Dena Briseno MD [address] [place] [address] Allergies Active Allergy Reactions Criticality Noted Date Comments Penicillins Edema airway,Rash High 03/10/2012 Last dose age 14 Tolerated Ancef Pollen 01/17/2021 Ragweed 11/05/2022 documented as of this encounter (statuses as of 05/30/2023) Medications Medication Sig Dispensed Refills Start Date [...] 04/21/2018 Active Additional Information Patient taking differently:2 Jaroso Each NostrilPRN, Allergies, Informant: Patient, Reported on [...] as of this encounter (statuses as of 05/30/2023) Active Problems Problem Noted Date Diagnosed Date [...] as of this encounter (statuses as of 05/30/2023) Resolved Problems Problem Noted Date Diagnosed Date Resolved Date Septic shock 05/26/2023 05/30/2023 Chronic kidney disease, stage 3b 04/30/2022 05/01/2023 Overview: Per CKD protocol Chronic kidney disease, stage 3a 05/29/2021 05/02/2022 Overview: Per CKD protocol Fever 09/13/2015 10/21/2017 Kidney stone on left side Inguinal hernia 10/21/2017 Overview: Surgical repair documented as of this encounter (statuses as of 05/30/2023) Immunizations Name Administration Dates Next Due COVID-19 mRNA, LNP-s, No Pre serve, 2-Dose Series ([employer]) 01/05/2021,05/07/2020,04/16/2020 COVID-19, LNP-s, No Preserve , Jasbir-sucrose, [...] as of this encounter Progress Notes * Dena Briseno MD - 05/30/2023 6:33 PM EDTReceived the page from the piercing machine operator. Attempted to reach the patient via phone x2 but no success. documented in this encounter Miscellaneous Notes * Telephone Encounter - Dena Briseno MD - 05/30/2023 7:04 PM EDT Connected with the patient and patient states that she was discharged on augmentin and she is hesitant to take it as she had anaphylactic reaction to the penicillins. She tolerated unasyn as a inpatient. Reassured the patient that she would be okay tolerating augmentin. Dena Briseno MD 05/30/2023 7:25 PM documented in this encounter Plan of Treatment Upcoming Encounters Date Type Department Care Team (Late st Contact Info) Description 06/04/2023 9:30 AM EDT Office Visit Urology, [place] [address] [place] [address] Saul Vargas MD [address] [place] [address] 06/10/2023 10:30 AM EDT Office Visit Urology, [facility] [address] [facility] [place] [address] Chris Royal MD [address] [facility] [address] [address] [place] [address] 06/24/2023 10:40 AM EDT Office Visit Nephrology, [facility] [address] [facility] [place] [address] Demetrius Sherman MD [address] [facility] [place] [address] 07/25/2023 11:15 AM EDT Office Visit Hematology/Oncology [facility] [address] [facility] [place] [phone] Aguilar Lizarraga MD [address] [facility] [place] [address] 11/12/2023 9:20 AM EDT Office Visit General Internal Medicine [facility] [address] [facility] [place] [address] Nichole Lizarraga MD [address] [facility] [place] [address] Health Maintenance Due Date Last Done Comments [...] Additional history exists CKD HGB USE SMARTSET 90215 05/29/202405/29, 05/29/2023, 05/28/2023, Additional history exists CKD PHOS USE SMARTSET 35253 05/29/202405/19, 05/29/2023, 05/28/2023, Additional history exists DXA [...] and were consensually agreed upon. Care Teams Earth Moving Machine Operator Relationship Specialty Start Date End Date Nichole Lizarraga MD [address] [place] [address] PCP - General Internal Medicine 03/10/12 documented as of this encounter
--- OUTSIDE RECORDS SUMMARY | 2023-06-30 22:48 | External Medical Summary | Summary of Care ---
Author Name Unknown Organization [facility] Address [address] [facility] [place] [address] Phone [phone] Care Team Providers Care Laborer Vineyard Name Role Phone Nichole Lizarraga MD Primary Care Provider + Encounter Details Date Type Department Care Team (Late st Contact Info) Description 06/06/2023 Telephone Hematology/Oncology [facility] [place] [address] [place] [phone] Aguilar Lizarraga MD [address] [place] [address] Allergies Active Allergy Reactions Criticality Noted Date [...] 10/16/2016 Active fluticasone (FLONASE) 50 MCG/ACT nasal sprayIndications:Social Media Assistant 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 1 Inhaler 5 04/21/2018 Active Additional Information Patient taking differently:2 Loving Each NostrilPRN, Allergies, Informant: Patient, Reported on [...] mRNA, LNP-s, No Pre serve, 2-Dose Series ([employer]) 01/05/2021,05/07/2020,04/16/2020 COVID-19, LNP-s, No Preserve , Jasbir-sucrose, Ages 12+ (Pfizer) 09/06/2021 Covid-19, Mrna, Lnp-s, Pf, B ivalent, 30 Mcg, IM, 12 yrs and above ([employer]) 01/31/2022 PPD 02/19/2017 Pneumococcal Conjugate Vacc, 13 [...] encounter Miscellaneous Notes * Telephone Encounter - Hazel Burkett OSA - 06/06/2023 7:57 AM EDT Called left message for pt to call in to confirm apt Pt is scheduled for 06/19 at 1:[address] Lizarraga. * Telephone Encounter - Hazel Burkett OSA - 06/06/2023 7:57 AM EDT ----- Message from Aguilar Lizarraga MD sent at 06/05/2023 3:43 PM EDT ----- Heme-Onc scheduling pool: Recently in April of 2023, she had surgery for the bladder cancer. Postoperatively she had infection Because of stent blockage. I would like to see her in the clinic in the next few weeks. ( 2 to 3 weeks). Thanks. [address] Aguilar Lizarraga Hem/Onc documented in this encounter Plan of Treatment Upcoming Encounters Date Type Department Care Team (Late st Contact Info) Description 06/20/2023 1:45 PM EDT Office Visit Hematology/Oncology [facility] [place] [address] [place], [place] [phone] Aguilar Lizarraga MD [address] [place] [address] [address] 06/24/2023 10:40 AM EDT Office Visit Nephrology, [facility] [address] [place] [address] [address] Demetrius Sherman MD [address] [place] [address] 07/04/2023 10:30 AM EDT Imaging Radiology [facility] [address] [facility] [address] [place] [address] 07/25/2023 11:00 AM EDT Office Visit Hematology/Oncology [facility] [address] [place] [phone] Deyanira Lauren CRNP [address] [place] [address] 11/12/2023 9:20 AM EDT Office Visit General Internal Medicine [facility] [address] [facility] [place] [address] Nichole Lizarraga MD [address] [facility] [place] [address] Health Maintenance Due Date Last Done Comments [...] Additional history exists CKD HGB USE SMARTSET 69427 05/29/202405/29, 05/29/2023, 05/28/2023, Additional history exists CKD PHOS USE SMARTSET 95230 05/29/202405/19, 05/29/2023, 05/28/2023, Additional history exists DXA Scan 10/02/2024 10/02/2022, 2 04/2019, 11/04/2017 Lipid Panel 10/26/2024 10/27/2019, 09/20, 01/20/2016, [...] and were consensually agreed upon. Care Teams Laborer Vineyard Relationship Specialty Start Date End Date Nichole Lizarraga MD [address] [place] [address] PCP - General Internal Medicine 03/10/12 documented as of this encounter
--- OUTSIDE RECORDS SUMMARY | 2023-06-30 22:49 | External Medical Summary ---
Author Name Unknown Address Unknown Organization [id number]:LABORATORY [facility] [place] - [address] [place] [address] Laboratory Report Ordering Provider Test Date Status MAKENNA HOPPERBRIAN 05/30/2023 05:01:00 Final Observation Date Value Abnormality Reference (Units ) Status Phosphate 05/30/2023 05:01:00 2.2 Below low normal 2.5 -4.8 (mg/dL) Final Performing Location [facility] - [address] [place] [address]
--- OUTSIDE RECORDS SUMMARY | 2023-06-30 22:49 | External Medical Summary ---
Author Name Unknown Address Unknown Organization [id number]:LABORATORY [facility] [place] - [facility] [place] [address] [facility] [address] [place] [address] Laboratory Report Ordering Provider Test Date Status JOSE HOPPER 05/27/2023 04:38:00 Final Observation Date Value Abnormality Reference (Units ) Status WBC, Total 05/27/2023 04:38:00 2.46 Below low normal 4.00-10.80 (K/uL) Final RBC 05/27/2023 04:38:00 2.91 3.85-5.15 (M/uL) Final Hemoglobin 05/27/2023 04:38:00 8.4 Below low normal 12.0-15.3 (g/dL) Final HCT 05/27/2023 04:38:00 25.9 Below low normal 36.0-45.2 (%) Final MCV 05/27/2023 04:38:00 89.0 81.5-97.5 (fL) Final MCH 05/27/2023 04:38:00 28.9 27.0-34.0 (pg) Final MCHC 05/27/2023 04:38:00 32.4 32.0-36.0 (g/dL) Final RDW 05/27/2023 04:38:00 15.9 11.5-15.5 (%) Final Platelets 05/27/2023 04:38:00 324 140-400 (K/uL) Final MPV 05/27/2023 04:38:00 9.6 6.6-11.1 (fL) Final Nucleated erythrocytes/100 leukocytes [Ratio] in Blood by Automated count 05/27/2023 04:38:00 0 <=0 (/100 WBCs) Final Performing Location LABORATORY [facility] [place] - [address] [place] [address]
--- OUTSIDE RECORDS SUMMARY | 2023-06-30 22:49 | External Medical Summary ---
Author Name Unknown Address Unknown Organization K01:[facility]ATORY [facility] - [address] [place] [address] Laboratory Report Ordering Provider Test Date Status JOSE HOPPER 05/28/2023 04:49:00 Final Observation Date Value Abnormality Reference (Units ) Status Phosphate 05/28/2023 04:49:00 2.9 2.5-4.8 (m g/dL) Final Performing Location [facility] - [address] [place] [address]
--- OUTSIDE RECORDS SUMMARY | 2023-06-30 22:49 | External Medical Summary ---
Author Name Unknown Address Unknown Organization [id number]:[facility] - [address] [place] [address] Laboratory Report Ordering Provider Test Date Status JOSE HOPPER 05/28/2023 04:49:00 Final Observation Date Value Abnormality Reference (Units ) Status Magnesium 05/28/2023 04:49:00 1.8 1.5-2.6 (m g/dL) Final Performing Location LAB[facility]AT[facility] - [address] [place] [address]
--- OUTSIDE RECORDS SUMMARY | 2023-06-30 22:49 | External Medical Summary | Summary of Care ---
Author Name Unknown Organization [facility] Address [address] [address] Phone [phone] Care Team Providers Care Fisher Name Role Phone Nichole Lizarraga MD Primary Care Provider + Reason for Visit * Reason Onset Date Comments Precert In Process 02/26/2023 11 PAVAN Ocampo Encounter Details Date Type Department Care Team (Late st Contact Info) Description 02/26/2023 Telephone Hematology/Oncology [facility] [address] [place] [address] Aguilar Lizarraga MD [address] [place] [address] Precert In Process (11 PAVAN Ocampo/) Allergies Active Allergy Reactions Criticality Noted Date Comments Penicillins Edema airway,Rash High 03/10/2012 Last dose age 14 Tolerated Ancef Pollen 01/17/2021 Ragweed 11/05/2022 documented as of this encounter (statuses as of 05/28/2023) Medications Medication Sig Dispensed Refills Start Date End Date Status MULTIVITAMINS PO TABS 1 TABLET DAILY 0 3 Suspended PROBIOTIC DAILY PO CAPS daily 0 Suspended Calcium Carbonate-Vitami n D 600-400 MG-UNIT Oral Tablet Chewable Take 1 Tablet by mouth in the morning. 0 6 Suspended loratadine (CLARITIN) 10 MG Tablet Take 1 Tablet by mouth at bedtime. 30 Tab 5 7 Suspended fluticasone (FLONASE) 50 MCG/ACT nasal sprayIndications :Chronic 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 1 Inhaler 5 9 Suspended Additional Information Econazole Nitrate 1 % External Cream (Spectazole)Celina cations:Tinea pedis of both feet,Onychomycos is Apply 2x daily from ankles down to feet/nails 2x daily for about 1 month until resolved, then 2x weekly to maintain clearance 170 g 2 2 Suspended Additional Information Solifenacin Succinate 5 MG Oral Tablet (VESIcare) Take 1 Tablet by mouth in the morning. 90 Tablet 3 3 05/13/19 24 Discontinued Azelastine HCl 137 MCG/SPRAY Nasal SolutionIndicati ons:Chronic sinusitis, unspecified location ADMINISTER 1 SPRAY INTO NOSTRIL 2 TIMES A DAY. 90 mL 3 3 Suspended Additional Information Zarxio 300 MCG/0.5ML Injection Solution Prefilled Syringe (Filgrastim-sndz )Indications:Chr onic neutropenia (HCC),Large granular lymphocytic leukemia (HCC) Inject 300 mcg (1 syringe) under the skin for 4 days a week 8 mL 5 3 04/08/19 24 Discontinued Sulfamethoxazole -Trimethoprim 800-160 MG Oral Tablet (Bactrim DS) Take 1 Tablet by mouth in the morning and 1 Tablet before bedtime. 6 Tablet 0 3 04/08/19 24 Discontinued oxyCODONE-Acetam inophen 5-325 MG Oral Tablet (Percocet) Take 1 Tablet by mouth every 6 hours as needed for Pain, Severe. 14 Tablet 0 3 03/01/19 24 Discontinued(Med ication List Clean Up) Phenazopyridine HCl 200 MG Oral Tablet (Pyridium) Take 1 Tablet by mouth 3 times a day as needed for Other (bladder spasms). After meals. 15 Tablet 0 3 04/08/19 24 Discontinued documented as of this encounter (statuses as of 05/28/2023) Active Problems Problem Noted Date Diagnosed Date Septic shock 05/26/2023 Obstructive uropathy 05/26/2023 Chronic kidney disease, stage [...] as of this encounter (statuses as of 05/28/2023) Resolved Problems Problem Noted Date Diagnosed Date Resolved Date Chronic kidney disease, stage 3b 04/30/2022 05/01/2023 Overview: Per CKD protocol Chronic kidney disease, stage 3a 05/29/2021 05/02/2022 Overview: Per CKD protocol Fever 09/13/2015 10/21/2017 Kidney stone on left side Inguinal hernia 10/21/2017 Overview: Surgical repair documented as of this encounter (statuses as of 05/28/2023) Immunizations Name Administration Dates Next Due COVID-19 mRNA, LNP-s, No Pre serve, 2-Dose Series ([employer]) 01/05/2021,05/07/2020,04/16/2020 COVID-19, LNP-s, No Preserve , Jasbir-sucrose, [...] Miscellaneous Notes * Telephone Encounter - Shanice Prieto OSA - 03/04/2023 11:38 AM EST Images from the original note were not included. * Telephone Encounter - Shanice Prieto OSA - 03/04/2023 10:59 AM EST Refaxed requested additional information this morning. Will follow up tomorrow if no determination received by EOB today. Shanice Prieto Medication Window Installer P: [phone] F: [phone] 03/04/2023,11:00 AM * Telephone Encounter - Josh Escalera RN - 02/28/2023 3:36 PM EST Pre-cert, can you please advise regarding referral. Thank you. * Telephone Encounter - Mee Olmos PHARM Tech - 02/28/2023 3:24 PM EST Pt calling as she received a denial call for the Zarxio. Please review. Thank You, Mee Olmos [facility] Vine Fruit Farming Supervisor III [facility] ([facility]) (Formerly Telepharmacy) 02/28/2023, 3:24 PM * Telephone Encounter - Shanice Prieto OSA - 02/28/2023 11:48 AM EST [facility] Authorization Submission Submission Information: Medication: Zarxio 300MCH/0.5mL syringe Portal used: [facility] Insurance: [employer] Authorization #/Hung: [id number] . Shanice Prieto Medication Window Installer P: [phone] F: [phone] 02/28/2023,11:49 AM * Telephone Encounter - Montse Atkinson CPhT - 02/26/2023 5:17 PM EST New or re-auth: re-auth Patient Linsey Estrella needs a prior authorization for their Zarxio through their [email or web address] insurance. ID: [id number] [id number] PCN:[id number] Target ship date is 02/28. Thank you very much, Montse Atkinson CPhT Dairy Bacteriologist [facility] 02/26/2023,5:18 PM documented in this encounter Plan of Treatment Upcoming Encounters Date Type Department Care Team (Late st Contact Info) Description 06/04/2023 9:30 AM EDT Office Visit Urology, [place] [address] [place] [address] Saul Vargas MD [address] [place] [address] 06/10/2023 10:30 AM EDT Office Visit Urology, [facility] [address] [place] [address] Chris Royal MD [address] [facility] [address] [place] [address] 06/24/2023 10:40 AM EDT Office Visit Nephrology, [facility] [address] [place] [address] Demetrius Sherman MD [address] [place] [address] 07/25/2023 11:15 AM EDT Office Visit Hematology/Oncology [facility] [address] [place] [address] Aguilar Lizarraga MD [address] [place] [address] 11/12/2023 9:20 AM EDT Office Visit General Internal Medicine [facility] [address] [place] [address] Nichole Lizarraga MD [address] [place] [address] Health Maintenance Due Date Last Done Comments Zoster Vaccines (1 of 2) 01/23/1971 Colonoscopy 01/23/1997 Fecal Occult Blood Test 01/23/1997 Sigmoidoscopy 01/23/1997 DTaP,Tdap,and Td Vaccines (2 - Td or Tdap) 09/02/2022 09/02/2012 Albumin/Creatinine Ratio 03/13/2023 03/13/2022, 10/20 Cologuard 06/09/2023 06/08/2020, 10/25/2016 Colorectal Cancer Screening 06/09/2023 Mammogram 10/12/2023 10/11/2022, 05/0 04/2021, 01/18/2020, Additional history exists Depression Screening 11/07/2023 11/06/2022 GFR 11/27/2023 05/28/2023, 04/0 09/2023, 05/26/2023, Additional history exists CKD HGB USE SMARTSET 14713 05/27/202405/27, 05/27/2023, 05/25/2023, Additional history exists CKD PHOS USE SMARTSET 63314 05/27/2024 040 10/2023, 05/27/2023, 05/26/2023, Additional history exists DXA Scan 10/02/2024 10/02/2022, [...] Inactivated Comments Full Code 05/26/2023 2:59 AM This order reflects the patients wishes and [...] and were consensually agreed upon. Care Teams Fisher Relationship Specialty Start Date End Date Nichole Lizarraga MD [address] [facility] [address] [place], [place] [address] PCP - General Internal Medicine 03/10/12 documented as of this encounter
--- OUTSIDE RECORDS SUMMARY | 2023-06-30 22:49 | External Medical Summary ---
Author Name Unknown Address Unknown Organization [id number]:[facility] [place] [facility] [address] [place] [address] Laboratory Report Ordering Provider Test Date Status JOSE HOPPER 05/30/2023 05:01:00 Final Observation Date Value Abnormality Reference (Units ) Status BUN 05/30/2023 05:01:00 12 6-20 (mg/dL) Final Creatinine 05/30/2023 05:01:00 1.2 Above high normal 0.5-1.0 (mg/dL) Final Glomerular filtration rate/1.73 sq M.predicted [Volume Rate/Area] in Serum, Plasma or Blood by Creatinine-based formula (CKD-EPI) 05/30/2023 05:01:00 49 Below low normal >=60 (mL/min) Final eGFR is calculated based on the CKD-EPI 2020 equation Sodium 05/30/2023 05:01:00 140 135-146 (m mol/L) Final Potassium 05/30/2023 05:01:00 3.4 Below low normal 3.5 -5.1 (mmol/L) Final Cl 05/30/2023 05:01:00 112 Above high normal 98 -107 (mmol/L) Final CO2 05/30/2023 05:01:00 19 Below low normal 22- 32 (mmol/L) Final Anion gap 05/30/2023 05:01:00 9 7-15 (mmol /L) Final Glucose 05/30/2023 05:01:00 93 70-120 (mg /dL) Final Calcium 05/30/2023 05:01:00 7.9 Below low normal 8.4 -10.2 (mg/dL) Final Performing Location [facility] [place] [address] [place] [address]
--- OUTSIDE RECORDS SUMMARY | 2023-06-30 22:49 | External Medical Summary ---
Author Name Unknown Address Unknown Organization [id number]:[facility] [place] - [address] [place] [address] Laboratory Report Ordering Provider Test Date Status DONITA LEOS 05/27/2023 04:38:00 Final Observation Date Value Abnormality Reference (Units ) Status Ferritin 05/27/2023 04:38:00 386 Above high normal 13 -150 (ng/mL) Final Postmenopausal women have hi gher ferritin levels than pre-menopausal women. The above reference interval is based on pre-menopausal women. Performing Location LABORATORY C - [address] [place] [address]
--- OUTSIDE RECORDS SUMMARY | 2023-06-30 22:49 | External Medical Summary ---
Author Name Unknown Address Unknown Organization K01:LABORATORY [facility] [place] - [facility] [address] [place] [address] Laboratory Report Ordering Provider Test Date Status JOSE HOPPER 05/27/2023 04:38:00 Final Observation Date Value Abnormality Reference (Units ) Status BUN 05/27/2023 04:38:00 23 Above high normal 6-20 (mg/dL) Final Creatinine 05/27/2023 04:38:00 1.6 Above high normal 0.5-1.0 (mg/dL) Final Glomerular filtration rate/1.73 sq M.predicted [Volume Rate/Area] in Serum, Plasma or Blood by Creatinine-based formula (CKD-EPI) 05/27/2023 04:38:00 35 Below low normal >=60 (mL/min) Final eGFR is calculated based on the CKD-EPI 2020 equation Sodium 05/27/2023 04:38:00 136 135-146 (m mol/L) Final Potassium 05/27/2023 04:38:00 3.5 3.5-5.1 (m mol/L) Final Cl 05/27/2023 04:38:00 107 98-107 (mm ol/L) Final CO2 05/27/2023 04:38:00 19 Below low normal 22- 32 (mmol/L) Final Anion gap 05/27/2023 04:38:00 10 7-15 (mmol /L) Final Glucose 05/27/2023 04:38:00 135 Above high normal 70 -120 (mg/dL) Final Calcium 05/27/2023 04:38:00 7.8 Below low normal 8.4 -10.2 (mg/dL) Final Performing Location LABORATORY [facility] [place] - [address] [place] [address]
--- OUTSIDE RECORDS SUMMARY | 2023-06-30 22:49 | External Medical Summary ---
Author Name Unknown Address Unknown Organization K01:LABORATORY [facility] [place] - [facility] [address] [place] [address] Laboratory Report Ordering Provider Test Date Status JOSE HOPPER 05/29/2023 04:23:00 Final Observation Date Value Abnormality Reference (Units ) Status BUN 05/29/2023 04:23:00 11 6-20 (mg/dL) Final Creatinine 05/29/2023 04:23:00 1.3 Above high normal 0.5-1.0 (mg/dL) Final Glomerular filtration rate/1.73 sq M.predicted [Volume Rate/Area] in Serum, Plasma or Blood by Creatinine-based formula (CKD-EPI) 05/29/2023 04:23:00 44 Below low normal >=60 (mL/min) Final eGFR is calculated based on the CKD-EPI 2020 equation Sodium 05/29/2023 04:23:00 140 135-146 (m mol/L) Final Potassium 05/29/2023 04:23:00 3.4 Below low normal 3.5 -5.1 (mmol/L) Final Cl 05/29/2023 04:23:00 113 Above high normal 98 -107 (mmol/L) Final CO2 05/29/2023 04:23:00 18 Below low normal 22- 32 (mmol/L) Final Anion gap 05/29/2023 04:23:00 9 7-15 (mmol /L) Final Glucose 05/29/2023 04:23:00 96 70-120 (mg /dL) Final Calcium 05/29/2023 04:23:00 7.8 Below low normal 8.4 -10.2 (mg/dL) Final Performing Location LABORATORY [facility] [place] - [address] [place] [address]
--- OUTSIDE RECORDS SUMMARY | 2023-06-30 22:49 | External Medical Summary ---
Author Name Unknown Address Unknown Organization K01:[facility] - [address] [place] [address] Laboratory Report Ordering Provider Test Date Status WARDJOSE Gonzalez 05/27/2023 04:38:00 Final Observation Date Value Abnormality Reference (Units ) Status Phosphate 05/27/2023 04:38:00 3.6 2.5-4.8 (m g/dL) Final Performing Location [facility]ORY [facility] - [address] [place] [address]
--- OUTSIDE RECORDS SUMMARY | 2023-06-30 22:49 | External Medical Summary ---
Author Name Unknown Address Unknown Organization K01:LABORATORY [facility] [place] - [facility] [address] [place] [address] Laboratory Report Ordering Provider Test Date Status JOSE HOPPER 05/28/2023 04:49:00 Final Observation Date Value Abnormality Reference (Units ) Status WBC, Total 05/28/2023 04:49:00 1.57 Below low normal 4.00-10.80 (K/uL) Final RBC 05/28/2023 04:49:00 2.73 3.85-5.15 (M/uL) Final Hemoglobin 05/28/2023 04:49:00 7.7 Below low normal 12.0-15.3 (g/dL) Final HCT 05/28/2023 04:49:00 24.3 Below low normal 36.0-45.2 (%) Final MCV 05/28/2023 04:49:00 89.0 81.5-97.5 (fL) Final MCH 05/28/2023 04:49:00 28.2 27.0-34.0 (pg) Final MCHC 05/28/2023 04:49:00 31.7 32.0-36.0 (g/dL) Final RDW 05/28/2023 04:49:00 15.9 11.5-15.5 (%) Final Platelets 05/28/2023 04:49:00 238 140-400 (K/uL) Final MPV 05/28/2023 04:49:00 10.1 6.6-11.1 (fL) Final Nucleated erythrocytes/100 leukocytes [Ratio] in Blood by Automated count 05/28/2023 04:49:00 0 <=0 (/100 WBCs) Final Performing Location LABORATORY [facility] [place] - [address] [place] [address]
--- OUTSIDE RECORDS SUMMARY | 2023-06-30 22:49 | External Medical Summary ---
Author Name Unknown Address Unknown Organization K01:[place] [facility] [place] [facility] [address] [place] [address] Laboratory Report Ordering Provider Test Date Status JOSE HOPPER 05/30/2023 05:01:00 Final Observation Date Value Abnormality Reference (Units ) Status WBC, Total 05/30/2023 05:01:00 2.09 Below low normal 4.00-10.80 (K/uL) Final RBC 05/30/2023 05:01:00 2.58 3.85-5.15 (M/uL) Final Hemoglobin 05/30/2023 05:01:00 7.3 Below low normal 12.0-15.3 (g/dL) Final HCT 05/30/2023 05:01:00 23.4 Below low normal 36.0-45.2 (%) Final MCV 05/30/2023 05:01:00 90.7 81.5-97.5 (fL) Final MCH 05/30/2023 05:01:00 28.3 27.0-34.0 (pg) Final MCHC 05/30/2023 05:01:00 31.2 32.0-36.0 (g/dL) Final RDW 05/30/2023 05:01:00 15.9 11.5-15.5 (%) Final Platelets 05/30/2023 05:01:00 222 140-400 (K/uL) Final MPV 05/30/2023 05:01:00 10.0 6.6-11.1 (fL) Final Nucleated erythrocytes/100 leukocytes [Ratio] in Blood by Automated count 05/30/2023 05:01:00 0 <=0 (/100 WBCs) Final Performing Location [facility] [place] [address] [place] [address]
--- OUTSIDE RECORDS SUMMARY | 2023-06-30 22:49 | External Medical Summary ---
Author Name Unknown Address Unknown Organization K01:[facility] - [address] [place] [address] Laboratory Report Ordering Provider Test Date Status JOSE HOPPER 05/27/2023 04:38:00 Final Observation Date Value Abnormality Reference (Units ) Status Magnesium 05/27/2023 04:38:00 2.0 1.5-2.6 (m g/dL) Final Performing Location [facility] - [address] [place] [address]
--- OUTSIDE RECORDS SUMMARY | 2023-06-30 22:49 | External Medical Summary ---
Author Name Unknown Address Unknown Organization K01:[place] [place] [address] [place] [address] Laboratory Report Ordering Provider Test Date Status DONITA LEOS 05/27/2023 04:38:00 Final Observation Date Value Abnormality Reference (Units ) Status Iron 05/27/2023 04:38:00 6 Below low normal 33-151 (ug/dL) Final Iron-binding capacity 05/27/2023 04:38:00 150 Below low normal 250-425 (ug/dL) Final Transferrin Sat % 05/27/2023 04:38:00 4 Below low normal 15-55 (%) Final Performing Location [facility] [place] [address] [place] [address]
--- OUTSIDE RECORDS SUMMARY | 2023-06-30 22:49 | External Medical Summary ---
Author Name Unknown Address Unknown Organization K01:[facility] - [address] [place] [address] Laboratory Report Ordering Provider Test Date Status JOSE HOPPER 05/29/2023 04:23:00 Final Observation Date Value Abnormality Reference (Units ) Status Magnesium 05/29/2023 04:23:00 2.0 1.5-2.6 (m g/dL) Final Performing Location LAB[facility] - [address] [place] [address]
--- OUTSIDE RECORDS SUMMARY | 2023-06-30 22:49 | External Medical Summary | Summary of Care ---
Author Name Unknown Organization [facility] Address [address] [place] [address] Phone [phone] Care Team Providers Care Senior Quality Assurance Analyst Name Role Phone Nichole Lizarraga MD Primary Care Provider + Reason for Visit * Reason Comments Retrieval * Auth/Cert Specialty Diagnoses / Procedures Referred By Yessenia t Referred To Contact [facility] [place] [address] [place] [address] Referral ID Status Reason Start Date Expiration Date Visits Re quested Visits Authorized [id number] Encounter Details Date Type Department Care Team (Late st Contact Info) Description 05/26/2023 1:00 AM EDT [facility] [address] [place] [address] 1, [facility] [address] [place], [place] [id number] Sepsis ([facility])* Allergies Active Allergy Reactions Criticality Noted Date Comments Penicillins Edema airway,Rash High 03/10/2012 Last dose age 14 Tolerated Ancef Pollen 01/17/2021 Ragweed 11/05/2022 documented as of this encounter (statuses as of 05/28/2023) Medications Medication Sig Dispensed Refills Start Date End Date Status MULTIVITAMINS PO TABS 1 TABLET DAILY 0 03/10/2012 Suspended PROBIOTIC DAILY PO CAPS daily 0 Suspended Calcium Carbonate-Vitamin D 600-400 MG-UNIT Oral Tablet Chewable Take 1 Tablet by mouth in the morning. 0 10/11/2015 Suspended loratadine (CLARITIN) 10 MG Tablet Take 1 Tablet by mouth at bedtime. 30 Tab 5 10/16/2016 Suspended fluticasone (FLONASE) 50 MCG/ACT nasal sprayIndications:Chr onic 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 1 Inhaler 5 04/21/2018 Suspended Additional Information Econazole Nitrate 1 % External Cream (Spectazole)Indicati ons:Tinea pedis of both feet,Onychomycosis Apply 2x daily from ankles down to feet/nails 2x daily for about 1 month until resolved, then 2x weekly to maintain clearance 170 g 2 11/21/2021 Suspended Additional Information Azelastine HCl 137 MCG/SPRAY Nasal SolutionIndications: Chronic sinusitis, unspecified location ADMINISTER 1 SPRAY INTO NOSTRIL 2 TIMES A DAY. 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 12.8 mL 5 03/01/2023 Suspended Additional Information Enoxaparin Sodium 40 MG/0.4ML Injection Solution Prefilled Syringe (Lovenox) Inject the contents of 1 syringe (40 mg) under the skin daily in the morning for 23 days. 9.2 mL 0 05/13/2023 Suspended Additional Information Polyethylene Glycol 3350 17 GM/SCOOP Oral Powder (Miralax) Mix 17 grams of powder (1 capful to line) in 8 ounces of water or juice until dissolved and take by mouth daily at bedtime for constipation. 238 g 0 05/13/2023 Suspended Additional Information Patient not taking.Reported on 05/26/2023 Sennosides 8.6 MG Oral Tablet (Senokot) Take 2 Tablets by mouth daily in the morning. 28 Tablet 1 05/13/2023 Suspended Additional Information oxyCODONE HCl 5 MG Oral Tablet (Oxy IR) Take 1 Tablet by mouth every 4 hours as needed for severe pain. 5 Tablet 0 05/13/2023 Suspended Additional Information documented as of this encounter (statuses as [...] mRNA, LNP-s, No Pre serve, 2-Dose Series ([employer]) 01/05/2021,05/07/2020,04/16/2020 COVID-19, LNP-s, No Preserve , Jasbir-sucrose, [...] as of this encounter Progress Notes * Yao Berger EMT-P - 05/26/2023 6:41 AM EDT MEDICARE AMBULANCE INFORMATION SHEET Patient Admitted as an Inpatient: yes Certifying Physician/Ordering Service:[facility] [place] Physician - Wellington Funez MD [address] [place] [address] Point of Cap Parts Cutter (zip code required): Hospital - [address] [address] Destination (Specify Name/Address): [address]; [place] [address] Patient transported to nearest facility (capable of mgmt for Pt's condition): YES Total number of Loaded Miles: 56.0 miles Mode of Transport: Air Completed by: Yao Berger EMT-P documented in this encounter Plan of Treatment Upcoming Encounters Date Type Department Care Team (Late st Contact Info) Description 06/04/2023 9:30 AM EDT Office Visit Urology, [place] [address] [place] [address] Saul Vargas MD [facility] [place] [address] 06/10/2023 10:30 AM EDT Office Visit Urology, [facility] [address] [place] [address] Chris Royal MD [address] [place] [address] 06/24/2023 10:40 AM EDT Office Visit Nephrology, [facility] [address] [facility] [place] [address] Demetrius Sherman MD [address] [facility] [place] [address] 07/25/2023 11:15 AM EDT Office Visit Hematology/Oncology [facility] [address] [facility] [place] [address] Aguilar Lizarraga MD [address] [facility] [place] [address] 11/12/2023 9:20 AM EDT Office Visit General Internal Medicine [facility] [address] [facility] [place] [address] Nichole Lizarraga MD [address] [facility] [place] [address] Health Maintenance Due Date Last Done Comments Zoster Vaccines (1 of 2) 01/23/1971 Colonoscopy 01/23/1997 Fecal Occult Blood Test 01/23/1997 Sigmoidoscopy 01/23/1997 DTaP,Tdap,and Td Vaccines (2 - Td or Tdap) 09/02/2022 09/02/2012 Albumin/Creatinine Ratio 03/13/2023 03/13/2022, 10/20 Cologuard 06/09/2023 06/08/2020, 10/25/2016 Colorectal Cancer Screening 06/09/2023 Mammogram 10/12/2023 10/11/2022, 05/0 04/2021, 01/18/2020, Additional history exists Depression Screening 11/07/2023 11/06/2022 GFR 11/27/2023 05/28/2023, 040 09/2023, 05/26/2023, Additional history exists CKD HGB USE SMARTSET 68835 05/27/202405/27, 05/27/2023, 05/25/2023, Additional history exists CKD PHOS USE SMARTSET 02303 05/27/2024 04/0 10/2023, 05/27/2023, 05/26/2023, Additional history exists DXA [...] as of this encounter Visit Diagnoses Diagnosis Sepsis (HCC)- Primary Unspecified septicemia documented in this encounter Advance Directives Latest [...] and were consensually agreed upon. Care Teams Senior Quality Assurance Analyst Relationship Specialty Start Date End Date Nichole Lizarraga MD [address] [place] [address] PCP - General Internal Medicine 03/10/12 documented as of this encounter
--- OUTSIDE RECORDS SUMMARY | 2023-06-30 22:49 | External Medical Summary ---
Author Name Unknown Address Unknown Organization [id number]:[facility] [place] [address] [place] [address] Laboratory Report Ordering Provider Test Date Status WARDHÉCTORAMANDA 05/29/2023 04:23:00 Final Observation Date Value Abnormality Reference (Units ) Status Phosphate 05/29/2023 04:23:00 2.2 Below low normal 2.5 -4.8 (mg/dL) Final Performing Location LABORATORY [facility] - [address] [place] [id number]
--- OUTSIDE RECORDS SUMMARY | 2023-06-30 22:49 | External Medical Summary ---
Author Name Unknown Address Unknown Organization [id number]:LABORATORY [place] [address] [place] [address] Laboratory Report Ordering Provider Test Date Status DONITA LEOS 05/27/2023 04:38:00 Final Observation Date Value Abnormality Reference (Units ) Status Retic, % (auto) 05/27/2023 04:38:00 1.15 0.80-1.90 (%) Final Reticulocytes, Absolute 05/27/2023 04:38:00 33.1 31.3-100.1 (K/uL) Final Reticulocyte fraction, immature 05/27/2023 04:38:00 10.9 2.5-20.6 (%) Final Reticulocyte HGB 05/27/2023 04:38:00 24.7 Below low normal 29.7-37.4 (pg) Final [place] [facility] [place] [address] [place] [address]
--- OUTSIDE RECORDS SUMMARY | 2023-06-30 22:50 | External Medical Summary ---
Author Name Unknown Address Unknown Organization [id number]:[facility] [place] [address] [place] [id number] Laboratory Report Ordering Provider Test Date Status JOSE HOPPER 05/26/2023 04:34:00 Final Observation Date Value Abnormality Reference (Units ) Status Body temperature 05/26/2023 04:34:00 37.0 (C) Final pH of Venous blood 05/26/2023 04:34:00 7.395 7.320-7.430 (units) Final Carbon dioxide [Partial pressure] in Venous blood 05/26/2023 04:34:00 28.3 Below low normal 40.0-60.0 (mmHg) Final Oxygen [Partial pressure] in Venous blood 05/26/2023 04:34:00 21.9 Below low normal 25.0-50.0 (mmHg) Final Base excess, Capillary 05/26/2023 04:34:00 -6.7 Below low normal -2.0-2.0 (mmol/L) Final Hemoglobin [Mass/volume] in Blood by Oximetry 05/26/2023 04:34:00 8.1 Below low normal 12.0-15.3 (g/dL) Final Oxyhemoglobin, Venous (FO2HB) 05/26/2023 04:34:00 32.1 Below low normal 40.0-85.0 (% total Hgb) Final Carboxyhemoglobin 05/26/2023 04:34:00 1.2 <=1.5 (% total Hgb) Final Smokers: 0-9.0 % Methemoglobin 05/26/2023 04:34:00 0.4 <= 1.5 (% total Hgb) Final Deoxyhemoglobin/Hemoglo bin.total in Venous blood 05/26/2023 04:34:00 66.3 (% total Hgb) Final Oxygen content in Venous blood 05/26/2023 04:34:00 3.7 Below low normal 7.0-18.0 (%vol) F inal Bicarbonate, Venous, POC (i-STAT) 05/26/2023 04:34:00 17.0 Below low normal 23.0-31.0 (mmol/L) Final Performing Location [facility] [place] [address] [facility] [id number]
--- OUTSIDE RECORDS SUMMARY | 2023-06-30 22:50 | External Medical Summary | Summary of Care ---
Author Name Unknown Organization [facility] Address [address] [facility] [place] [address] Phone [phone] Care Team Providers Care Physician Non Invasive Cardiologist Name Role Phone Nichole Lizarraga MD Primary Care Provider + Reason for Visit * Reason Comments Fever * Auth/Cert Specialty Diagnoses / Procedures Referred By Yessenia t Referred To Contact [facility] [address] [facility] [place] [address] Phone: [phone] Emergency Medicine [address] [address] Referral ID Status Reason Start Date Expiration Date Visits Re quested Visits Authorized [id number] Encounter Details Date Type Department Care Team (Late st Contact Info) Description 05/25/2023 8:43 PM EDT - 05/26/2023 1:56 AM EDT Emergency [facility] Emergency Department ([facility]) [address] [facility] [place] [address] Claus Sofia MD [address] [place] [address] Calixto Onofre DO [address] [place] [address] Septic shock (HCC) (Primary Dx); Sepsis (HCC) Discharge Disposition: Short Term Hospital Allergies Active Allergy Reactions Criticality Noted Date Comments Penicillins Edema airway,Rash High 03/10/2012 Last dose age 14 Tolerated Ancef Pollen 01/17/2021 Ragweed 11/05/2022 documented as of this encounter (statuses as of 05/26/2023) Medications Medication Sig Dispensed Refills Start Date [...] 238 g 0 05/13/2023 Suspended Additional Information Sennosides 8.6 MG Oral Tablet (Senokot) Take 2 Tablets by mouth daily in the morning. 28 Tablet 1 05/13/2023 Suspended Additional Information oxyCODONE HCl 5 MG Oral Tablet (Oxy IR) Take 1 Tablet by mouth every 4 hours as needed for severe pain. 5 Tablet 0 05/13/2023 Suspended Additional Information documented as of this encounter (statuses as of 05/26/2023) Active Problems Problem Noted Date Diagnosed Date [...] as of this encounter (statuses as of 05/26/2023) Resolved Problems Problem Noted Date Diagnosed Date Resolved Date Chronic kidney disease, stage 3b 04/30/2022 05/01/2023 Overview: Per CKD protocol Chronic kidney disease, stage 3a 05/29/2021 05/02/2022 Overview: Per CKD protocol Fever 09/13/2015 10/21/2017 Kidney stone on left side Inguinal hernia 10/21/2017 Overview: Surgical repair documented as of this encounter (statuses as of 05/26/2023) Immunizations Name Administration Dates Next Due COVID-19 mRNA, LNP-s, No Pre serve, 2-Dose Series (KARALIT) 01/05/2021,05/07/2020,04/16/2020 COVID-19, LNP-s, No Preserve , Jasbir-sucrose, [...] Sign Reading Time Taken Comments Blood Pressure 110/80 05/26/2023 1:40 AM EDT Pulse 98 05/26/2023 1:40 AM EDT Temperature 36.8 C (98.2 F) 05/26/2023 1:35 AM ED T Respiratory Rate 33 05/26/2023 1:40 AM EDT Oxygen Saturation 95% 05/26/2023 1:40 AM EDT Inhaled Oxygen Concentration - - Weight 52.6 kg (116 lb) 05/25/2023 8:41 PM EDT Height - - Body Mass Index 19.01 05/08/2023 6:08 PM EDT documented in this encounter Functional Status Functional Status Response Date of Assess ment Are you deaf or do you have serious difficulty h earing? No 05/08/2023 Are you blind or do you have serious difficulty seeing, even when wearing glasses? No 05/08/2023 Do you have serious difficul ty walking or climbing stairs? (5 years old or older) No 05/08/2023 Do you have difficulty dress ing or bathing? (5 years old or older) No 05/08/2023 Because of a physical, menta l, or emotional condition, do you have difficulty doing errands alone such as visiting a doctor s office or shopping? (15 years old or older) No 05/08/19 Cognitive Status Response Date of Assessm ent Because of a physical, menta l, or emotional condition, do you have serious difficulty concentrating, remembering, or making decisions? (5 years old or older) No 05/08/2023 documented as of this encounter ED Notes * Claus Sofia MD - 05/25/2023 8:58 PM EDT HISTORY OF PRESENT ILLNESS Linsey Estrella is a 73 year old female who presents to the ED for evaluation of Fever. The patient was seen at 05/25/232043. Patient brought in by her by private vehicle due to fever, generalized weakness, chills. States that these symptoms began this afternoon. Temperature initially was around 100 F, then went up to 104.0 F. She continued to have chills. She did try taking Tylenol at home. They called the Urology on-call doctor who recommended they come to the ER. Patient was discharged from the hospital on 05/13/2023 after she had a radical procedure for a bladder tumor during which she was left with a diverting ileostomy. She denies abdominal pain, nausea, vomiting, flank pain. States that the urine output from her urostomy looks the same as it has for the past few days, there is a lot of mucus present, but that has also been present now for some time. States this began suddenly today, was feeling well last night. Allergies: Penicillin, pollen, ragweed Review of Systems Constitutional: Positive for chills, fatigue and fever. HENT: Negative for ear pain and sore throat. Eyes: Negative for pain and visual disturbance. Respiratory: Negative for cough and shortness of breath. Cardiovascular: Negative for chest pain and palpitations. Gastrointestinal: Negative for abdominal pain and vomiting. Genitourinary: Negative for dysuria and hematuria. Musculoskeletal: Negative for arthralgias and back pain. Skin: Negative for color change and rash. Neurological: Negative for seizures and syncope. All other systems reviewed and are negative. The patient's allergies, past history, and medications were reviewed. PHYSICAL EXAM Initial Vitals (see all): BP 72/45 | Pulse 116 | Resp 22 | Temp 99.8 | O2 100 %Weight 52.62 kg | Height 166.4 cm | BMI 19.01 kg/m2 Initial Pain Assessment (see all): 0 (no pain)/10 ([facility] Adult Scale 0-10) Physical Exam Vitals and nursing note reviewed. Constitutional: General: She is not in acute distress. Appearance: Normal appearance. She is well-developed. She is not diaphoretic. HENT: Head: Normocephalic and atraumatic. Nose: Nose normal. Mouth/Throat: Mouth: Mucous membranes are moist. Pharynx: Oropharynx is clear. Eyes: General: No scleral icterus. Extraocular Movements: Extraocular movements intact. Conjunctiva/sclera: Conjunctivae normal. Pupils: Pupils are equal, round, and reactive to light. Neck: Thyroid: No thyromegaly. Vascular: No JVD. Cardiovascular: Rate and Rhythm: Regular rhythm. Tachycardia present. Heart sounds: Normal heart sounds. No murmur heard. No friction rub. No gallop. Pulmonary: Effort: Pulmonary effort is normal. No respiratory distress. Breath sounds: Normal breath sounds. No wheezing or rales. Chest: Chest wall: No tenderness. Abdominal: General: Bowel sounds are normal. There is no distension. Palpations: Abdomen is soft. There is no mass. Tenderness: There is no abdominal tenderness. There is no right CVA tenderness, left CVA tenderness, guarding or rebound. Comments: Urostomy present in the right lower quadrant, there is copious mucus in the urostomy bag.There is no surrounding erythema, warmth. Incision on the suprapubic portion of her abdomen appearswell healing without erythema or warmth. Musculoskeletal: General: Normal range of motion. Cervical back: Normal range of motion and neck supple. No muscular tenderness. Skin: General: Skin is warm and dry. Neurological: General: No focal deficit present. Mental Status: She is alert and oriented to person, place, and time. Psychiatric: Mood and Affect: Mood normal. Behavior: Behavior normal. PROCEDURES AND TREATMENTS ED Orders | ED Results MEDICAL DECISION MAKING Nursing notes and vital signs were reviewed. ED Course as of 05/26/23 0035 Sat May 25, 20232043 ED Triage Notes Pt states she had a urostomy on the in comerio and a stoma placed d/t a bladder tumor. State she started with fevers today. Last dose of tylenol @ 1640. States she is neutropenic. C/o weakness and lightheaded. B/p checked x2 in triage. Both readings systolic in the 70's. [MM] 2043 BP: 72/45 [MM] 2043 Resp: 22 [MM] 2043 Pulse: 116 [MM] 2043 SpO2: 100 % [MM] 2043 Temp: 37.7 C (99.8 F) [MM] 2048 Per chart review: Operations & Procedures: 1. Radical cystectomy, hysterectomy, bilateral salpinoophorectomy, anterior vaginectomy (anterior pelvic exenteration) 2. Ileal conduit urinary diversion 3. Bilateral standard pelvic lymph node dissection [MM] 2048 Calling [facility] urology to discuss obtaining urine specimen from urostomy [MM] 2103 pH, Venous: 7.382 [MM] 2103 Lactate, Whole Blood: 1.0 [MM] 2106 My interpretation of the EKG shows rate 94, normal sinus rhythm, normal axis, normal intervals, no ST depression or elevation noted. [MM] 2109 Pulse: 95 [MM] 2109 BP: 85/49 [MM] 2110 WBC(!): 1.11 Patient has worsening leukopenia [MM] 2110 Per chart review, patient did have recent relative neutropenia, her absolute neutrophil count was 560 [MM] 2111 Per urology; do a sterile catheterization through the stoma [MM] 2145 Creatinine(!): 1.9 JUANITO [MM] 2145 Procalcitonin(!): 11.53 [MM] 2146 Troponin T, High Sensitivity(!): 45 No baseline for comparison. Patient reports no chest pain [MM] 2146 Attempted sterile catheterization of her urostomy, this was unsuccessful. There was some urinethat leaked around my catheter and out of the ostomy, but none was able to be sterilely collected. [MM] 2146 Patient has a history of neutropenia, follows with Hematology-Oncology. She takes filgrastim Saturday, Saturday, , Saturday; her last dose was yesterday. [MM] 2221 RVP negative [MM] 2222 IMPRESSION: 1. Status post cystectomy with a [...] and are most likely postsurgical in nature. [MM] 2228 Dr. Guerrero, ICU accepted [facility] Urology aware of CT findings [MM] ED Course User Index [MM] Claus Sofia MD Patient presents with fever, chills, generalized weakness. Patient recently had a major surgery performed by Urology due to a bladder tumor. She also has a history of chronic neutropenia. Vital signs showed tachycardia, hypotension upon arrival, nearly febrile. Patient reported a fever at home of 104 F. Sepsis alert was paged upon arrival. I spoke to Urology on-call at [facility], they recommended trying to obtain a catheterized sample from her urostomy. This was attempted at bedside by me personally, I was not able to obtain any urine through the catheter. Decision was made at that time to proceed with antibiotics without urine sample. Patient did not respond well to IV fluids, she was started on Levophed. CT scan shows possible abscess, significant right-sided hydroureteronephrosis. Urology at [facility] recommends transfer to their hospital. Patient accepted by Dr. Guerrero to the medical ICU. Currently awaiting the open bed. Plan will be to send the patient by [facility] or by ground with a nurse for assistance. Care signed out to Dr. Onofre at 12:35 a.m.. Amount and/or Complexity of Data Reviewed Labs: ordered. Decision-making details documented in ED Course. Radiology: ordered. ECG/medicine tests: ordered. Risk OTC drugs. Prescription drug management. Clinical Impressions Sepsis (HCC) Septic shock (HCC) Disposition Transferred. The patient's condition at disposition was: stable. Comments ED Disposition Transferred Comment Initial facility contacted: [facility] Initial contact date/time: 05/25/2023, 22:30 Accepting provider: Dr. Guerrero (Critical Care) Accepting date/time: 05/25/2023, 22:30 Reason for transfer: Urology, Intensive Care Claus Sofia ATTENDING ATTESTATION Critical Care Time: I personally provided 40 minutes of critical care for this patient. Critical care time was exclusive of separately billable procedures, treating other patients, and teaching. The patient had a high probability of sudden, clinically significant, life-threatening deterioration. Critical care was necessary to treat the following conditions: spinal shock. * Analisa Cain RN - 05/25/2023 8:38 PM EDT Pt states she had a urostomy and a stoma placed on the in comerio d/t a bladder tumor. State she started with fevers today. Last dose of tylenol @ 1640. States she is neutropenic. C/o weakness and lightheaded. B/p checked x2 in triage. Both readings systolic in the 70's. documented in this encounter Miscellaneous Notes * ED Shirt Operator Note - Ena King RN - 05/26/2023 1:54 AM EDT Patient left with [facility] to be transported to [facility] * ED Shirt Operator Note - Ena King RN - 05/25/2023 10:19 PM EDT Late entry: patient presents to the ED after feeling weak and dizzy at home. Patient denies any pain. Reports that she was discharged from the hospital roughly 11 days ago after having extensive surgery. States that she had her bladder removed due to cancer. Patient had had the L kidney removed previously. Patient now has an ostomy on the R abdomen. Reports that it has been draining normally, does produce mucus. Patient has stent sticking out of the ostomy. No redness or swelling around the ostomy site. Denies any nausea or vomiting. Reports that she developed fevers today, last tylenol at 1630. Bowels have been loose. 2145: provider and this nurse at bedside in attempts to get a cath urine sample. Unable to obtain asample. documented in this encounter Plan of Treatment Upcoming Encounters Date Type Department Care Team (Late st Contact Info) Description 06/04/2023 9:30 AM EDT Office Visit Urology, [facility] [address] [place] [address] Saul Vargas MD [address] [place] [address] 06/10/2023 10:30 AM EDT Office Visit Urology, [facility] [address] [facility] [place] [address] Chris Royal MD [address] [facility] [address] [place] [address] 06/24/2023 10:40 AM EDT Office Visit Nephrology, [facility] [address] [facility] [place], [place] [address] Demetrius Sherman MD [address] [facility] [place], [place] [address] 07/25/2023 11:15 AM EDT Office Visit Hematology/Oncology [facility] [address] [facility] [place], [place] [id number] Aguilar Lizarraga MD [address] [facility] [place], [place] [address] 11/12/2023 9:20 AM EDT Office Visit General Internal Medicine [facility] [address] [facility] [place] [address] Nichole Lizarraga MD [address] [facility], [place] [address] Pending Results Name Type Priority Associated Diagnoses Date /Time CULTURE, BLOOD Lab STAT 05/25/2023 9:02 PM EDT CULTURE, BLOOD Lab STAT 05/25/2023 8:54 PM EDT MRSA SCREEN, PCR Lab Routine 05/25/19 9:08 PM EDT Scheduled Orders Name Type Priority Associated Diagnoses Orde r Schedule URINALYSIS, REFLEX TO CULTURE (NOT FOR NEUTROPENIC PATIENTS) Lab STAT Perform No w for 1 Occurrences starting 05/25/2023 until 05/25/2023 MRSA SCREEN, PCR Lab Routine One Time for 1 Occurrences starting 05/25/2023 until 05/25/2023 URINALYSIS, REFLEX TO CULTURE (CUP ONLY) Lab STAT Once for 1 Oc currences starting 05/25/2023 until 05/25/2023 URINALYSIS, REFLEX TO CULTURE Lab STAT Once for 1 Occur rences starting 05/25/2023 until 05/25/2023 Health Maintenance Due Date Last Done Comments Zoster Vaccines (1 of 2) 01/23/1971 Colonoscopy 01/23/1997 Fecal Occult Blood Test 01/23/1997 Sigmoidoscopy 01/23/1997 DTaP,Tdap,and Td Vaccines (2 - Td or Tdap) 09/02/2022 09/02/2012 Albumin/Creatinine Ratio 03/13/2023 03/13/2022, 10/20 Cologuard 06/09/2023 06/08/2020, 10/25/2016 Colorectal Cancer Screening 06/09/2023 Mammogram 10/12/2023 10/11/2022, 05/0 04/2021, 01/18/2020, Additional history exists Depression Screening 11/07/2023 11/06/2022 GFR 11/25/2023 05/26/2023, 04/0 07/2023, 05/13/2023, Additional history exists CKD HGB USE SMARTSET 91089 05/24/202405/24, 05/25/2023, 05/13/2023, Additional history exists CKD PHOS USE SMARTSET 26595 05/25/2024 04/0 08/2023, 05/11/2023, 03/13/2022, Additional history exists DXA Scan 10/02/2024 10/02/2022, [...] Procedure Name Priority Date/Time Associated Diagnosis Comments CT ABD/PELVIS W IV CONTRAST - WO ORAL CONTRAST STAT 05/25/2023 9:56 PM EDT XR CHEST 1 VIEW STAT 05/25/2023 9:10 PM EDT RESPIRATORY PATHOGEN PANEL, PCR STAT 05/25/2023 9:08 PM EDT CULTURE, BLOOD STAT 05/25/2023 9:02 PM EDT LACTATE, WHOLE BLOOD WITH REFLEX IF ABNORMAL STAT 05/25/2023 8:54 PM EDT DIFFERENTIAL, AUTOMATED STAT 05/25/2023 8:54 PM EDT TROPONIN T, HIGH SENSITIVITY STAT 05/25/2023 8:54 PM EDT PROCALCITONIN STAT 05/25/2023 8:54 PM EDT BLOOD GAS, VENOUS STAT 05/25/2023 8:5 4 PM EDT COMPREHENSIVE METABOLIC PANEL STAT 05/25/2023 8:54 PM EDT CBC STAT 05/25/2023 8:54 PM EDT PT INR STAT 05/25/2023 8:54 PM EDT CULTURE, BLOOD STAT 05/25/2023 8:54 PM EDT APTT STAT 05/25/2023 8:54 PM EDT CBC STAT 05/25/2023 8:54 PM EDT DIFFERENTIAL, TECHNOLOGIST REVIEW Routine 05/25/2023 8:54 PM EDT EXTRA KELLEY TOP Routine 05/25/2023 8:53 PM EDT EXTRA TUBES Routine 05/25/2023 8:53 PM EDT documented in this encounter Results * CT ABD/PELVIS W IV CONTRAST - WO ORAL CONTRAST (05/25/2023 9:56 PM EDT) Anatomical Region Laterality Modality Body, Abdomen, Pelvis Computed T omography 05/25/2023 9:45 PM EDT Impressions 05/25/2023 10:14 PM EDT IMPRESSION: 1. Status post cystectomy with a [...] DOCUMENT HAS BEEN ELECTRONICALLY SIGNED BY WENDY RAMOS MD Narrative 05/25/2023 10:14 PM EDT PROCEDURE INFORMATION: Exam: CT Abdomen And Pelvis With Contrast Exam date and time: 05/25/2023 9:45 PM Age: 73 years old Clinical indication: Fever; Abdominal pain; Prior surgery; Surgery date: 3-7 days post-operative; Surgery type: Bladder; Additional info: Fevers, chills, concern for sepsis. Recent radical surgery involving bladder removal, radical hysterectomy, anterior vaginectomy TECHNIQUE: Imaging protocol: Computed tomography of the abdomen and pelvis with contrast. Radiation optimization: All CT scans at this facility use at least one of these dose optimization techniques: automated exposure control; mA and/or kV adjustment per patient size (includes targeted exams where dose is matched to clinical indication); or iterative reconstruction. Contrast material: [id number]; Contrast volume: 100 ml; Contrast route: INTRAVENOUS (IV); COMPARISON: 1. CT UROGRAM HEMATURIA(Adult) 01/16/2023 2:[address] ABD/PELVIS W WO IV CONTRAST - WO ORAL CONT 08/31/2022 1:[address] UROGRAM HEMATURIA(Adult) 02/05/2022 10:37 AM FINDINGS: Liver: There is mild periportal edema [...] x 2.5 cm (image 69 series 2). Procedure Note Wendy Ramos MD - 05/25/2023 PROCEDURE INFORMATION: Exam: CT Abdomen And Pelvis With Contrast Exam date and time: 05/25/2023 9:45 PM Age: 73 years old Clinical indication: Fever; Abdominal pain; Prior surgery; Surgery date:3-7 days post-operative; Surgery type: Bladder; Additional info: Fevers,chills, concern for sepsis. Recent radical surgery involving bladder removal,radical hysterectomy, anterior vaginectomy TECHNIQUE: Imaging protocol: Computed tomography of the abdomen and pelvis withcontrast. Radiation optimization: All CT scans at this facility use at least one ofthese dose optimization techniques: automated exposure control; mA and/or kV adjustment per patient size (includes targeted exams where dose is matchedto clinical indication); or iterative reconstruction. Contrast material: [id number]; Contrast volume: 100 ml; Contrast route: INTRAVENOUS (IV); COMPARISON: 1. CT UROGRAM HEMATURIA(Adult) 01/16/2023 2:[address] ABD/PELVIS W WO IV CONTRAST - WO ORAL CONT 08/31/2022 1:[address] UROGRAM HEMATURIA(Adult) 02/05/2022 10:37 AM FINDINGS: Liver: There is mild periportal edema which is usually related to volume status. Gallbladder and bile ducts: No acute process. Pancreas: Normal. Spleen: Normal. Adrenal glands: The adrenal glands appear normal. Kidneys and ureters: There is a retrograde ureteral stent in place. Thereis severe right hydroureteronephrosis. Prior left nephrectomy. Stomach and bowel: The stomach, small bowel, and colon are well-distendedand show no evidence of wall thickening, masses, or obstruction. Appendix: No evidence of appendicitis. Intraperitoneal space: Unremarkable. Vasculature: The abdominal aorta and its major branches appear normalwithout evidence of aneurysm or stenosis. There are pelvic phleboliths. Lymph nodes: No lymphadenopathy. Urinary bladder: Status post cystectomy. Right lower quadrant ilealconduit is noted. Reproductive: The patient has undergone prior hysterectomy. Bones/joints: The visualized osseous structures of the abdomen and pelvis appear normal for patient age. Soft tissues: There is a small fat containing umbilical hernia. There are loculated fluid collections along the pelvic sidewalls which contain small locules of air. There is a rim enhancing collection in the right deeppelvis measuring 1.9 x 2.5 cm (image 69 series 2). IMPRESSION IMPRESSION: 1. Status post cystectomy with a right lower quadrant ileal conduit.Severe right hydroureteronephrosis despite the presence of a ureteral stent. 2. There is a rim enhancing fluid collection in the right hemipelvis concerning for abscess which measures up to 2.5 cm (image 69 series 2). 3. Additional small pockets of fluid and air do not appear loculated andare most likely postsurgical in nature. THIS DOCUMENT HAS BEEN ELECTRONICALLY SIGNED BY WENDY RAMOS MD Claus Sofia MD RAD CT * XR CHEST 1 VIEW (05/25/2023 9:10 PM EDT) Anatomical Region Laterality Modality Chest Digital Radiogra phy 05/25/2023 9:03 PM EDT Impressions 05/25/2023 10:01 PM EDT IMPRESSION: No dense parenchymal consolidation, pleural effusion, or pneumothorax. THIS DOCUMENT HAS BEEN ELECTRONICALLY SIGNED BY WENDY RAMOS MD Narrative 05/25/2023 10:01 PM EDT PROCEDURE INFORMATION: Exam: XR Chest Exam date [...] age. Soft tissues: Upper abdominal surgical clips. Procedure Note Wendy Ramos MD - 05/25/2023 PROCEDURE INFORMATION: Exam: XR Chest Exam date and time: 05/25/2023 9:03 PM Age: 73 years old Clinical indication: Other: Concern for sepsis TECHNIQUE: Imaging protocol: Radiologic exam of the chest. Views: 1 view. COMPARISON: CT CHEST WO(Adult) 02/26/2023 1:47 PM FINDINGS: Lungs: Scarring in the right upper lung. Pleural spaces: No large effusion or pneumothorax. Heart/Mediastinum: No evidence of mediastinal widening or cardiacsilhouette enlargement; the mediastinum and heart appear within normal limits forcontour and size. Vasculature: Partially visualized right stent. Bones/joints: No evidence of acute osseous abnormalities within thevisualized portions of the thoracic spine and ribs. Osseous structures appearappropriate for patient age. Soft tissues: Upper abdominal surgical clips. IMPRESSION IMPRESSION: No dense parenchymal consolidation, pleural effusion, or pneumothorax. THIS DOCUMENT HAS BEEN ELECTRONICALLY SIGNED BY WENDY RAMOS MD Claus Sofia MD RADIOLOGY ([facility]) * RESPIRATORY PATHOGEN PANEL, PCR (05/25/2023 9:08 PM EDT) Adenovirus by PCR Negative Negative 024 10:11 PM EDT [facility] Coronavirus 229E by PCR Negative Negative 05/25/2023 10:11 PM EDT [facility] Coronavirus HKU1 by PCR Negative Negative 05/25/2023 10:11 PM EDT [facility] Coronavirus NL63 by PCR Negative Negative 05/25/2023 10:11 PM EDT [facility] Coronavirus OC43 by PCR Negative Negative 05/25/2023 10:11 PM EDT [facility] Coronavirus SARS-CoV-2 by PCR Negative Negative 05/25/2023 10:11 PM EDT [facility] Human Metapneumovirus by PCR Negative Negative 05/25/2023 10:11 PM EDT [facility] Rhinovirus/Enterovi ashly by PCR Negative Negative 05/25/2023 10:11 PM EDT [facility] Influenza A Virus by PCR Negative Negative 05/25/2023 10:11 PM EDT [facility] Influenza B Virus by PCR Negative Negative 05/25/2023 10:11 PM EDT [facility] Parainfluenza Virus 1 by PCR Negative Negative 05/25/2023 10:11 PM EDT [facility] Parainfluenza Virus 2 by PCR Negative Negative 05/25/2023 10:11 PM EDT [facility] Parainfluenza Virus 3 by PCR Negative Negative 05/25/2023 10:11 PM EDT [facility] Parainfluenza Virus 4 by PCR Negative Negative 05/25/2023 10:11 PM EDT [facility] + [facility] Respiratory Syncytial Virus by PCR Negative Negative 05/25/2023 10:11 PM EDT [facility] Bordetella pertussis by PCR Negative Negative 05/25/2023 10:11 PM EDT [facility] Chlamydia pneumoniae by PCR Negative Negative 05/25/2023 10:11 PM EDT [facility] Mycoplasma pneumoniae by PCR Negative Negative 05/25/2023 10:11 PM EDT [facility] Bordetella parapertussis by PCR Negative Negative 05/25/2023 10:11 PM EDT [facility] Comment: The primers that detect Rhinovirus may cross react with some Enterorviruses. The validation of bronchial specimens, tracheal aspirates, and throats for this assay was developed and performance characteristics determined by [employer]. The validation of alternate specimen types has not been cleared or approved by the U.S. Food and Drug Administration (FDA). It has been determined that such clearance or approval is not necessary. Upper Respiratory Mid-turbinate nasal swab / Unknown Non-blood Collection / Unknown 05/25/2023 9:08 PM EDT 05/25/2023 9:16 PM EDT Claus Sofia MD LAB MICRO - GENERAL ORDERABLES LABORATORY [address] [address] * (ABNORMAL) DIFFERENTIAL, TECHNOLOGIST REVIEW (05/25/2023 8:54 PM EDT) WBC 1.11(L) 4.00 - 10.80 K/uL 05/26/2023 1:17 AM EDT LAB[facility]ATORY [facility] Neutrophils % 23.0(L) 40.0 - 75.0 % 05/26/2023 1:17 AM EDT LAB[facility] Lymphocytes % 43.0(H) 18.0 - 42.0 % 05/26/2023 1:17 AM EDT [facility] Monocytes % 27.0(H) 1.0 - 11.0 % 05/26/2023 1:17 AM EDT LAB[facility] Eosinophils % 2.0 0.0 - 6.0 % 05/26/2023 1:17 AM EDT [facility] Basophils % 5.0(H) 0.0 - 2.0 % 05/26/2023 1:17 AM EDT LAB[facility] Absolute Neutrophils 0.26(L) 1.80 - 7.70 K/uL 05/26/2023 1:17 AM EDT LABORATORY [facility] Absolute Lymphocytes 0.48(L) 1.00 - 4.80 K/uL 05/26/2023 1:17 AM EDT LABORATORY [facility] Absolute Monocytes 0.30 0.00 - 1.10 K/uL 05/26/2023 1:17 AM EDT LAB[facility] Absolute Eosinophils 0.02 0.00 - 0.70 K/uL 05/26/2023 1:17 AM EDT LAB[facility] Absolute Basophils 0.06 0.00 - 0.20 K/uL 05/26/2023 1:17 AM EDT LAB[facility] Smudge Cells Present(A ) None Seen 05/26/2023 1:17 AM EDT LABORATORY [facility] Blood Venous blood specimen / Unknown Venipuncture / Unknown 05/25/2023 8:54 PM EDT 05/25/2023 9:00 PM EDT Claus Sofia MD LAB BLOOD ORDERABLES LABORATORY [address] [address] * DIFFERENTIAL, AUTOMATED (05/25/2023 8:54 PM EDT) Blood Venous blood specimen / Unknown Venipuncture / Unknown 05/25/2023 8:54 PM EDT 05/25/2023 9:00 PM EDT Claus Sofia MD LAB BLOOD ORDERABLES [facility] [address] [place] [address] * (ABNORMAL) CBC (05/25/2023 8:54 PM EDT) WBC 1.11(L) 4.00 - 10.80 K/uL 05/25/2023 9:11 PM EDT [facility] RBC 3.41 3.85 - 5.15 M/uL 05/25/2023 9:11 PM EDT [facility] HGB 9.8(L) 12.0 - 15.3 g/dL 05/25/2023 9:11 PM EDT LABORATORY GL HCT 30.7(L) 36.0 - 45.2 % 05/25/2023 9:11 PM EDT [facility] MCV 90.0 81.5 - 97.5 fL 05/25/2023 9:11 PM EDT [facility] MCH 28.7 27.0 - 34.0 pg 05/25/2023 9:11 PM EDT [facility] MCHC 31.9 32.0 - 36.0 g/dL 05/25/2023 9:11 PM EDT [facility] RDW 15.9 11.5 - 15.5 % 05/25/2023 9:11 PM EDT [facility] PLT 346 140 - 400 K/uL 05/25/2023 9:11 PM EDT [facility] MPV 9.7 6.6 - 11.1 fL 05/25/2023 9:11 PM EDT LABORATORY GL nRBCs 0 <=0 /100 WBCs 05/25/2023 9:11 PM EDT [facility] Blood Venous blood specimen / Unknown Venipuncture / Unknown 05/25/2023 8:54 PM EDT 05/25/2023 9:00 PM EDT Claus Sofia MD LAB BLOOD ORDERABLES LABORATORY [address] [address] * (ABNORMAL) BLOOD GAS, VENOUS (05/25/2023 8:54 PM EDT) Temperature 37.0 C 05/25/2023 9:04 PM EDT LABORATORY [facility] pH, Venous 7.382 7.320 - 7.430 units 05/25/2023 9:04 PM EDT LAB[facility] pCO2, Venous 26.4(L) 40.0 - 60.0 mmHg 05/25/2023 9:04 PM EDT LAB[facility] pO2, Venous 58.0(H) 25.0 - 50.0 mmHg 05/25/2023 9:04 PM EDT LAB[facility] Base Excess, Venous -8.2(L) -2.0 - 2.0 mmol/L 05/25/2023 9:04 PM EDT [facility] HGB 9.9(L) 12.0 - 15.3 g/dL 05/25/2023 9:04 PM EDT [facility] Oxyhemoglobin, Venous 86.2(H) 40.0 - 85.0 % total Hgb 05/25/2023 9:04 PM EDT LAB[facility] Carboxyhemoglobi n, Whole Blood 1.4 <=1.5 % total Hgb 05/25/2023 9:04 PM EDT [facility] Comment:Smokers: 0-9.0 % Methemoglobin, Whole Blood 0.4 <=1.5 % total Hgb 05/25/2023 9:04 PM EDT [facility] Reduced Hemoglobin, Venous 12.0 % total Hgb 05/25/2023 9:04 PM EDT [facility] O2 Content, Venous 12.0 7.0 - 18.0 %vol 05/25/2023 9:04 PM EDT [facility] Bicarbonate, Whole Blood 15.3(L) 23.0 - 31.0 mmol/L 05/25/2023 9:04 PM EDT [facility] Blood Venous blood specimen / Unknown Venipuncture / Unknown 05/25/2023 8:54 PM EDT 05/25/2023 9:00 PM EDT Claus Sofia MD LAB BLOOD ORDERABLES LABORATORY [address] [address] * (ABNORMAL) APTT (05/25/2023 8:54 PM EDT) aPTT 41(H) 21 - 38 seconds 05/25/2023 9:16 PM EDT [facility] Blood Venous blood specimen / Unknown Venipuncture / Unknown 05/25/2023 8:54 PM EDT 05/25/2023 9:00 PM EDT [facility] - 05/25/2023 9:16 PM EDT Anticoagulation may affect testing. Refer to [employer] for a list of effects. Claus Sofia MD LAB BLOOD ORDERABLES Performing Organization Address [facility] Co de Phone Number LABORATORY [address] [address] * PT INR (05/25/2023 8:54 PM EDT) Prothrombin Time 14.2 11.6 - 15.2 seconds 05/25/2023 9:15 PM EDT [facility] INR 1.1 0.8 - 1.2 05/25/2023 9:15 PM EDT [facility] Blood Venous blood specimen / Unknown Venipuncture / Unknown 05/25/2023 8:54 PM EDT 05/25/2023 9:00 PM EDT [facility] - 05/25/2023 9:15 PM EDT Warfarin Therapy INR: 2.0-3.0 conventional anticoagulation INR: 2.5-3.5 high intensity anticoagulation Claus Sofia MD LAB BLOOD ORDERABLES Performing Organization Address [facility] Co de Phone Number LABORATORY [address] [address] * LACTATE, WHOLE BLOOD WITH REFLEX IF ABNORMAL (05/25/2023 8:54 PM EDT) Pathologist [facility] [place] Lactate, Whole Blood 1.0 0.4 - 2.0 mmol/L 05/25/2023 9:04 PM EDT [facility] Blood Venous blood specimen / Unknown Venipuncture / Unknown 05/25/2023 8:54 PM EDT 05/25/2023 9:00 PM EDT Claus Sofia MD LAB BLOOD ORDERABLES Performing Organization Address [facility] de Phone Number LABORATORY [address] [address] * (ABNORMAL) TROPONIN T, HIGH SENSITIVITY (05/25/2023 8:54 PM EDT) Troponin T, High Sensitivity 45(H) <=14 ng/L 05/25/2023 9:17 PM EDT [facility] Blood Venous blood specimen / Unknown Venipuncture / Unknown 05/25/2023 8:54 PM EDT 05/25/2023 9:00 PM EDT Claus Sofia MD LAB BLOOD ORDERABLES Performing Organization Address [facility] de Phone Number LABORATORY [address] [address] * (ABNORMAL) PROCALCITONIN (05/25/2023 8:54 PM EDT) [facility] Procalcitonin 11.53(H) <0.10 ng/mL 05/25/2023 9:27 PM EDT [facility] Blood Venous blood specimen / Unknown Venipuncture / Unknown 05/25/2023 8:54 PM EDT 05/25/2023 8:59 PM EDT Narrative [facility] - 05/25/2023 9:27 PM EDT Less than 0.5 ng/mL: Low risk for progression to sepsis. Review patients condition for localized infections. 0.5 to 2.0 ng/mL: Intermediate risk for progresion to sepsis. Review underlying conditions. Recommend repeat PCT after 6 hours has elapsed. Greater than 2.0 ng/mL: high risk for progression to sepsis unless other causes are known. Claus Sofia MD LAB BLOOD ORDERABLES LAB[facility] [address] [place] [address] * (ABNORMAL) COMPREHENSIVE METABOLIC PANEL (05/25/2023 8:54 PM EDT) BUN 43(H) 6 - 20 mg/dL 05/25/2023 9:41 PM EDT LAB[facility] Creatinine 1.9(H) 0.5 - 1.0 mg/dL 05/25/2023 9:41 PM EDT LAB[facility] Estimated Glomerular Filtration Rate 28(L) >=60 mL/min 05/25/2023 9:41 PM EDT [facility] Comment:eGFR is calculated b ased on the CKD-EPI 2020 equation Sodium 133(L) 135 - 146 mmol/L 05/25/2023 9:41 PM EDT LAB[facility] Potassium 4.0 3.5 - 5.1 mmol/L 05/25/2023 9:41 PM EDT LAB[facility] Chloride 104 98 - 107 mmol/L 05/25/2023 9:41 PM EDT LAB[facility] CO2 12(L) 22 - 32 mmol/L 05/25/2023 9:41 PM EDT LAB[facility] Anion Gap 17(H) 7 - 15 mmol/L 05/25/2023 9:41 PM EDT [facility] Glucose 126(H) 70 - 120 mg/dL 05/25/2023 9:41 PM EDT LAB[facility] Albumin 2.6(L) 3.8 - 5.0 g/dL 05/25/2023 9:41 PM EDT LAB[facility] AST 10 10 - 35 U/L 05/25/2023 9:41 PM EDT LAB[facility] Alkaline Phosphatase 70 35 - 130 U/L 05/25/2023 9:41 PM EDT LAB[facility] Bilirubin, Total 0.4 <=1.2 mg/dL 05/25/2023 9:41 PM EDT LAB[facility] Calcium 8.6 8.4 - 10.2 mg/dL 05/25/2023 9:41 PM EDT LAB[facility] Protein 6.3 6.0 - 8.3 g/dL 05/25/2023 9:41 PM EDT LAB[facility]ORY [facility] ALT 11 10 - 35 U/L 05/25/2023 9:41 PM EDT [facility] Blood Venous blood specimen / Unknown Venipuncture / Unknown 05/25/2023 8:54 PM EDT 05/25/2023 8:59 PM EDT Claus Sofia MD LAB BLOOD ORDERABLES Performing Organization Address [facility] de Phone Number LABORATORY [address] [address] * EXTRA KELLEY TOP (05/25/2023 8:53 PM EDT) Blood Venous blood specimen / Unknown 05/25/2023 8:53 PM EDT 05/25/2023 9:00 PM EDT Claus Sofia MD LAB BLOOD ORDERABLES Performing Organization Address [facility] de Phone Number LABORATORY [address] [address] documented in this encounter Visit Diagnoses Diagnosis Septic shock (HCC)- Primary Unspecified septicemia Sepsis (HCC) Unspecified septicemia documented in this encounter Administered Medications Inactive Administered Medications - up to 3 most recent administrations Medication Order MAR Action Action Date Dose Rate Site Acetaminophen (Tylenol) tab 650 mg 650 mg, Oral, ONCE, On 05/25/23 at 2130, For 1 dose, Maximum of 4 grams (4000 mg) per day. Given 05/25/2023 8:59 PM EDT 650 mg cefepime in dextrose premix ivpb 2 g 2 g, IV Piggyback, ONCE, 1 dose, On 05/25/23 at 2130, Administer over 30 Minutes New Bag 05/25/2023 9:04 PM EDT 2 g 100 mL/hr Ioversol (Optiray 320) inj 125 mL 125 mL, Intravenous, ONCE, On 05/25/23 at 2230, For 1 dose, Radiology Medication Routing (Non-IR) Given 05/25/2023 9:56 PM EDT 125 mL ISOLYTE 1,600 mL bolus infusion (SEE ADMIN INSTRUCTIONS) Intravenous, at 1,200 mL/hr, Obtain vital signs q15 min x 4 beginning within the hour after fluid bolus end time, then resume vital signs as ordered. Estimated body mass index is 19.01 kg/m as calculated from the following: Height as of 05/08/23: 1.664 m (5' 5.5"). Weight as of this encounter: 52.6 kg (116 lb). Actual body weight was utilized to determine target ordered volume. Plasma-LYTE 148, isolyte-S, and isolyte-S pH 7.4 are considered equivalent - including for MAR barcode scanning., ONCE, 1 dose, On 05/25/23 at 2130 New Bag 05/25/2023 8:53 PM EDT 1,600 mL 1200 mL/hr NORepinephrine (Levophed) 4 mg in 250 ml [...] 0-30 mcg/min (0-112.5 mL/hr), TITRATE, Starting on 05/25/23 at 2230, Until 05/26/23 at 0241, Peripheral IV New Bag 05/26/2023 1:16 AM EDT 12 mcg/min 45 mL/hr New Bag 05/26/2023 12:41 AM EDT 10 mcg/min 37.5 mL/hr Rate Change 05/25/2023 11:07 PM EDT 15 mcg/min 56.25 mL/hr NSS 0.9% 1,000 mL bolus infusion IV Piggyback, Wide open, This infusion may be completed in less than 1 hour, since it will be a wide open rate, ONCE, 1 dose, On 05/25/23 at 2230 New Bag 05/25/2023 9:55 PM EDT 1,000 mL 999 mL/hr Vancomycin (Vancocin) 1250 mg in NSS 250 mL ivpb 1,250 mg, IV Piggyback, ONCE, 1 dose, On 05/25/23 at 2130 New Bag 05/25/2023 10:12 PM EDT 1,250 mg 183.33 mL/hr documented in this encounter Active and Recently Administered Medications Times are shown in EDT. Scheduled Medication Order 05/24/2023 05/25/2023 05/26/2023 Acetaminophen (Tylenol) tab 650 mg (COMPLETED) 650 mg, Oral, ONCE, On 05/25/23 at 2130, For 1 dose, Maximum of 4 grams (4000 mg) per day. 2058 (Given - Provider: Ena King RN) cefepime in dextrose premix ivpb 2 g (COMPLETED) 2 g, IV Piggyback, ONCE, 1 dose, On 05/25/23 at 2130, Administer over 30 Minutes 2103 (New Bag - Provider: Ena King RN)2133 (Stopped - Provider: Ena King RN) Ioversol (Optiray 320) inj 125 mL (COMPLETED) 125 mL, Intravenous, ONCE, On 05/25/23 at 2230, For 1 dose, Radiology Medication Routing (Non-IR) 2155 (Given - Provider: Junito Olivo, RT (R)) ISOLYTE 1,600 mL bolus infusion (SEE ADMIN INSTRUCTIONS) (COMPLETED) Intravenous, at 1,200 mL/hr, Obtain vital signs q15 min x 4 beginning within the hour after fluid bolus end time, then resume vital signs as ordered. Estimated body mass index is 19.01 kg/m as calculated from the following: Height as of 05/08/23: 1.664 m (5' 5.5"). Weight as of this encounter: 52.6 kg (116 lb). Actual body weight was utilized to determine target ordered volume. Plasma-LYTE 148, isolyte-S, and isolyte-S pH 7.4 are considered equivalent - including for MAR barcode scanning., ONCE, 1 dose, On 05/25/23 at 2130 2052 (New Bag - Provider: Ena King RN)2129 (Stopped - Provider: Ena King RN) NSS 0.9% 1,000 mL bolus infusion (COMPLETED) IV Piggyback, Wide open, This infusion may be completed in less than 1 hour, since it will be a wide open rate, ONCE, 1 dose, On 05/25/23 at 2230 2155 (New Bag - Provider: Ena King RN)2237 (Stopped - Provider: Ena King RN) Vancomycin (Vancocin) 1250 mg in NSS 250 mL ivpb (COMPLETED) 1,250 mg, IV Piggyback, ONCE, 1 dose, On 05/25/23 at 2130 2212 (New Bag - Provider: Ena King, CHRISTIAN)2342 (Stopped - Provider: Ena King RN) Continuous Medication Order 05/24/2023 05/25/2023 05/26/2023 NORepinephrine (Levophed) 4 mg in 250 ml [...] 0-30 mcg/min (0-112.5 mL/hr), TITRATE, Starting on 05/25/23 at 2230, Until 05/26/23 at 0241, Peripheral IV 2201 (New Bag - Provider: Ena King RN)2213 (Rate Change - Provider: Ena King RN)2243 (New Bag - Provider: Ena King RN)2307 (Rate Change - Provider: Ena King RN) 0041 (New Bag - Provider: Ena King RN)0116 (New Bag - Provider: Ena King RN)0241 (Due: Stopped) documented in this encounter Additional Health Concerns Infection Onset [...] and were consensually agreed upon. Care Teams Physician Non Invasive Cardiologist Relationship Specialty Start Date End Date Nichole Lizarraga MD [address] [place] [address], [place] [address] PCP - General Internal Medicine 03/10/12 documented as of this encounter
--- OUTSIDE RECORDS SUMMARY | 2023-06-30 22:50 | External Medical Summary ---
Author Name Unknown Address Unknown Organization K01:LABORATORY [facility] - [facility] [address] [facility] [address] Laboratory Report Ordering Provider Test Date Status JOSE HOPPER 05/26/2023 03:28:18 Final Observation Date Value Abnormality Reference (Units ) Status Bacteria identified in Specimen by Culture 05/26/2023 03:28:18 [id number]^ENTEROC OCCUS SPECIES Abnormal Final >100,000 colonies/mL Enteroc occus species Bacteria identified in Speci men by Culture 05/26/2023 03:28:18 [id number]^YEAST Abnormal Final 1000 to 9999 colonies/mL Yea st Bacteria identified in Specimen by Culture 05/26/2023 03:28:18 [id number]^STREPTOCOCCUS ANGINOSUS GROUP Abnormal Final >100,000 colonies/mL Strepto coccus anginosus group Bacteria identified in Specimen by Culture 05/26/2023 03:28:18 [id number]^ESCHERICHIA COLI Abnormal Final 10,000 to 100,000 colonies/m L Escherichia coli Performing Location LABORATORY [facility] - [address] [place] [address]. [facility] [address] Ordering Provider Test Date Status JOSE HOPPER 05/26/2023 03:28:18 Final Observation Date Value Abnormality Reference (Units ) Status Ampicillin 05/26/2023 03:28:18 <=2 Susceptible Final Nitrofurantoin susceptibility 05/26/2023 03:28:18 <=16 Susceptible Final Tetracyclinesusceptibility 05/26/2023 03:28:18 >=16 Resistant Final Vancomycinsusceptibility 05/26/2023 03:28:18 1 Susceptible Final Performing Location LABORATORY [address] [facility] [address] Ordering Provider Test Date Status JOSE HOPPER 05/26/2023 03:28:18 Final Observation Date Value Abnormality Reference (Units ) Status Ampicillin 05/26/2023 03:28:18 4 Susceptible Final Cefazolin 05/26/2023 03:28:18 <=4 Susceptible Final Cefepime susceptibility 05/26/2023 03:28:18 <=1 Susceptible Final Ceftriaxone suceptibility 05/26/2023 03:28:18 <=1 Susceptible Final Ciprofloxacin 05/26/2023 03:28:18 <=0.25 Susceptible Final Due to serious side effects, the FDA has advised against using Ciprofloxacin to treat uncomplicated UTIs and respiratory tract infections unless there are no alternative treatment options. Gentamicin susceptibility 05/26/2023 03:28:18 <=1 Susc eptible Final Nitrofurantoin susceptibility 05/26/2023 03:28:18 <=16 Susceptible Final Piperacillin + Tazobactamsusceptibility 05/26/2023 03:28:18 <=4 Susceptible Final TMP-SMZ susceptibility 05/26/2023 03:28:18 <=20 Suscept ible Final Test: Culture, Urine, Quanti tative
Specimen Source: Urine, Renal Pelvis
Specimen Type: Urine
Specimen Date: 05/26/2023 3:28 AM
Result Date: 05/29/2023 1:29 PM
Result Status: Final result
Abnormal: Yes
Resulting Lab: LABORATORY [facility]
[address]
[place] [address]

CULTURE

>100,000 colonies/mL Enterococcus species (Abnormal)

1000 to 9999 colonies/mL Yeast (Abnormal)

>100,000 colonies/mL Streptococcus anginosus group (Abnormal)

10,000 to 100,000 colonies/mL Escherichia coli (Abnormal)

SUSCEPTIBILITY

Enterococcus Escherichia coli
species
METHOD MICROBROTH MICROBROTH
DILUTIONS DILUTIONS

AMPICILLIN <=2 Susceptible 4 Susceptible
CEFAZOLIN <=4 Susceptible
CEFEPIME <=1 Susceptible
CEFTRIAXONE <=1 Susceptible
CIPROFLOXACIN <=0.25 Susceptible
GENTAMICIN <=1 Susceptible
NITROFURANTOIN <=16 Susceptible <=16 Susceptible
PIPERACILLIN TAZOBACTAM <=4 Susceptible
TETRACYCLINE >=16 Resistant
TRIMETH/SULFAMETHOXAZOLE <=20 Susceptible
VANCOMYCIN 1 Susceptible

null Performing Location LABORATORY [facility] - [address] [facility] [address]
--- OUTSIDE RECORDS SUMMARY | 2023-06-30 22:50 | External Medical Summary ---
Author Name Unknown Address Unknown Organization [id number]:LABORATORY [facility] - [address] [facility] [place] [address] Laboratory Report Ordering Provider Test Date Status JIM DIXON 05/25/2023 20:54:29 Final Observation Date Value Abnormality Reference (Units ) Status SYNC LEUKOCYTES IN BLOOD BY AUTOMATED COUNT 05/25/2023 20:54:29 1.11 Below low normal 4.00-10.80 (K/uL) Final Neutrophils/100 leukocytes in Blood by Manual count 05/25/2023 20:54:29 23.0 Below low normal 40.0-75.0 (%) Final Lymphocytes/100 leukocytes in Blood by Manual count 05/25/2023 20:54:29 43.0 Above high normal 18.0-42.0 (%) Final Monocytes/100 leukocytes in Blood by Manual count 05/25/2023 20:54:29 27.0 Above high normal 1.0-11.0 (%) Final Eosinophils/100 leukocytes in Blood by Manual count 05/25/2023 20:54:29 2.0 0.0-6.0 (%) Final Basophils/100 leukocytes in Blood by Manual count 05/25/2023 20:54:29 5.0 Above high normal 0.0-2.0 (%) Final Neutrophils [#/volume] in Blood by Manual count 05/25/2023 20:54:29 0.26 Below low normal 1.80-7.70 (K/uL) Final Lymphocytes [#/volume] in Blood by Manual count 05/25/2023 20:54:29 0.48 Below low normal 1.00-4.80 (K/uL) Final Monocytes [#/volume] in Blood by Manual count 05/25/2023 20:54:29 0.30 0.00-1.10 (K/uL) Final Eosinophils [#/volume] in Blood by Manual count 05/25/2023 20:54:29 0.02 0.00-0.70 (K/uL) Final Basophils [#/volume] in Blood by Manual count 05/25/2023 20:54:29 0.06 0.00-0.20 (K/uL) Final Smudge cells [Presence] in Blood by Light microscopy 05/25/2023 20:54:29 Present Abnormal None Seen Final Performing Location LABORATORY [facility] - [address] [place] [address]
--- OUTSIDE RECORDS SUMMARY | 2023-06-30 22:50 | External Medical Summary | Summary of Care ---
Author Name Unknown Organization [facility] Address [address] [place] [address] Phone [phone] Care Team Providers Care Car Spotter Name Role Phone Nichole Lizarraga MD Primary Care Provider + Reason for Visit * Reason Comments Retrieval Encounter Details Date Type Department Care Team (Late st Contact Info) Description 05/26/2023 1:00 AM EDT Documentation [facility] [address] [place] [address] 1, [facility] [address] [place] [address] Sepsis (HCC)* Allergies Active Allergy Reactions Criticality Noted [...] mRNA, LNP-s, No Pre serve, 2-Dose Series (EARTHNET) 01/05/2021,05/07/2020,04/16/2020 COVID-19, LNP-s, No Preserve , Jasbir-sucrose, [...] Admitted as an Inpatient: yes Certifying Physician/Ordering Service:[facility] Physician - Wellington Funez MD [facility] [address] [facility] [place] [address] [place] Supervisor (zip code required): Hospital - [address]; [place] [address] Destination (Specify Name/Address): [facility] [place] [address] [facility]; [place] [address] Patient transported to nearest facility (capable of mgmt for Pt's condition): YES Total number of Loaded Miles: 56.0 miles Mode of Transport: Air Completed by: Yao Berger EMT-P documented in this encounter Plan of Treatment Upcoming Encounters Date Type Department Care Team (Late st Contact Info) Description 06/04/2023 9:30 AM EDT Office Visit Urology, [facility] [address] [place] [address] Saul Vargas MD [address] [place] [address] 06/10/2023 10:30 AM EDT Office Visit Urology, [facility] [address] [facility] [place] [address] Chris Royal MD [address] [facility] [address] [place] [address] 06/24/2023 10:40 AM EDT Office Visit Nephrology, [facility] [address] [facility] [place] [address] Demetrius Sherman MD [address] [facility] [place] [address] 07/25/2023 11:15 AM EDT Office Visit Hematology/Oncology [facility] [place] [address] [facility] [place], [place] [id number] Aguilar Lizarraga MD [address] [facility] [place], [place] [address] 11/12/2023 9:20 AM EDT Office Visit General Internal Medicine [facility] [place] [address] [facility] [place], [place] [address] Nichole Lizarraga MD [address] [facility] [place] [address] Health Maintenance Due Date Last Done Comments Zoster Vaccines (1 of 2) 01/23/1971 Colonoscopy 01/23/1997 Fecal Occult Blood Test 01/23/1997 Sigmoidoscopy 01/23/1997 DTaP,Tdap,and Td Vaccines (2 - Td or Tdap) 09/02/2022 09/02/2012 Albumin/Creatinine Ratio 03/13/2023 03/13/2022, 10/20 Cologuard 06/09/2023 06/08/2020, 10/25/2016 Colorectal Cancer Screening 06/09/2023 Mammogram 10/12/2023 10/11/2022, 05/0 04/2021, 01/18/2020, Additional history exists Depression Screening 11/07/2023 11/06/2022 GFR 11/24/2023 05/25/2023, 04/19, 05/12/2023, Additional history exists CKD HGB USE SMARTSET 74692 05/24/202405/24, 05/25/2023, 05/13/2023, Additional history exists CKD PHOS USE SMARTSET 80451 05/25/2024 04/0 08/2023, 05/11/2023, 03/13/2022, Additional history [...] and were consensually agreed upon. Care Teams Car Spotter Relationship Specialty Start Date End Date Nichole Lizarraga MD [address] [place] [address] [place] [address] PCP - General Internal Medicine 03/10/12 documented as of this encounter
--- OUTSIDE RECORDS SUMMARY | 2023-06-30 22:50 | External Medical Summary ---
Author Name Unknown Address Unknown Organization K1F:LABORATORY [facility] - [place] [address] Laboratory Report Ordering Provider Test Date Status JIM DIXON 05/25/2023 20:54:29 Final Observation Date Value Abnormality Reference (Units ) Status Troponin T 05/25/2023 20:54:29 45 Above high normal < =14 (ng/L) Final Performing Location LABORATORY [facility] - [address] [place] [address]
--- OUTSIDE RECORDS SUMMARY | 2023-06-30 22:50 | External Medical Summary ---
Author Name Unknown Address Unknown Organization K1F:LABORATORY [facility] - [address] [place] [address] Laboratory Report Ordering Provider Test Date Status JIM DIXON 05/25/2023 20:54:29 Final Anticoagulation may affect t esting. Refer to [facility] Test Catalog for a list of effects. Observation Date Value Abnormality Reference (Units ) Status aPTT panel - Platelet poor plasma 05/25/2023 20:54:29 41 Above high normal 21-38 (seconds) Final Performing Location LABORATORY [facility] - [address] [place] [address]
--- OUTSIDE RECORDS SUMMARY | 2023-06-30 22:50 | External Medical Summary ---
Author Name Unknown Address Unknown Organization K1F:[facility]ORY [facility] [address] [facility] [place] [address] Laboratory Report Ordering Provider Test Date Status JIM DIXON 05/25/2023 20:54:29 Final Observation Date Value Abnormality Reference (Units ) Status BUN 05/25/2023 20:54:29 43 Above high normal 6-20 (mg/dL) Final Creatinine 05/25/2023 20:54:29 1.9 Above high normal 0.5-1.0 (mg/dL) Final Glomerular filtration rate/1.73 sq M.predicted [Volume Rate/Area] in Serum, Plasma or Blood by Creatinine-based formula (CKD-EPI) 05/25/2023 20:54:29 28 Below low normal >=60 (mL/min) Final eGFR is calculated based on the CKD-EPI 2020 equation Sodium 05/25/2023 20:54:29 133 Below low normal 135 -146 (mmol/L) Final Potassium 05/25/2023 20:54:29 4.0 3.5-5.1 (m mol/L) Final Cl 05/25/2023 20:54:29 104 98-107 (mm ol/L) Final CO2 05/25/2023 20:54:29 12 Below low normal 22- 32 (mmol/L) Final Anion gap 05/25/2023 20:54:29 17 Above high normal 7- 15 (mmol/L) Final Glucose 05/25/2023 20:54:29 126 Above high normal 70 -120 (mg/dL) Final Albumin 05/25/2023 20:54:29 2.6 Below low normal 3.8 -5.0 (g/dL) Final AST (Aspartate aminotransferase) 05/25/2023 20:54:29 10 10-35 (U/L) Fin al Alk Phos 05/25/2023 20:54:29 70 35-130 (U/ L) Final Bilirubin, Total 05/25/2023 20:54:29 0.4 <=1 .2 (mg/dL) Final Calcium 05/25/2023 20:54:29 8.6 8.4-10.2 ( mg/dL) Final Protein 05/25/2023 20:54:29 6.3 6.0-8.3 (g /dL) Final ALT (Alanine aminotransferase) 05/25/2023 20:54:29 11 10-35 (U/L) Chet monge Performing Location LABORATORY [facility] - [address] [place], [place] [address]la[place] [address]
--- OUTSIDE RECORDS SUMMARY | 2023-06-30 22:50 | External Medical Summary ---
Author Name Unknown Address Unknown Organization K01:LABORATORY [facility] - [address] [place] [address] Laboratory Report Ordering Provider Test Date Status JOSE HOPPER 05/26/2023 04:33:00 Final Observation Date Value Abnormality Reference (Units ) Status Phosphate 05/26/2023 04:33:00 3.9 2.5-4.8 (m g/dL) Final Performing Location LABORATORY [facility] - [address] [place] [address]
--- OUTSIDE RECORDS SUMMARY | 2023-06-30 22:50 | External Medical Summary ---
Author Name Unknown Address Unknown Organization K1F:LABORATORY [facility] - [address] [place] [address] Laboratory Report Ordering Provider Test Date Status JIM DIXON 05/25/2023 20:54:29 Final Warfarin Therapy
INR: 2 .0-3.0 conventional anticoagulation
INR: 2.5- 3.5 high intensity anticoagulation Observation Date Value Abnormality Reference (Units ) Status PT 05/25/2023 20:54:29 14.2 11.6-15.2 (seconds) Final INR 05/25/2023 20:54:29 1.1 0.8-1.2 Final Performing Location LABORATORY [facility] - [address] [place] [address]
--- OUTSIDE RECORDS SUMMARY | 2023-06-30 22:50 | External Medical Summary ---
Author Name Unknown Address Unknown Organization K1F:[facility]ATORY [facility] - [address] [facility] [place] [address] Laboratory Report Ordering Provider Test Date Status JIM DIXON 05/25/2023 20:54:29 Final Observation Date Value Abnormality Reference (Units ) Status Body temperature 05/25/2023 20:54:29 37.0 (C) Final pH of Venous blood 05/25/2023 20:54:29 7.382 7.320-7.430 (units) Final Carbon dioxide [Partial pressure] in Venous blood 05/25/2023 20:54:29 26.4 Below low normal 40.0-60.0 (mmHg) Final Oxygen [Partial pressure] in Venous blood 05/25/2023 20:54:29 58.0 Above high normal 25.0-50.0 (mmHg) Final Base excess, Capillary 05/25/2023 20:54:29 -8.2 Below low normal -2.0-2.0 (mmol/L) Final Hemoglobin [Mass/volume] in Blood by Oximetry 05/25/2023 20:54:29 9.9 Below low normal 12.0-15.3 (g/dL) Final Oxyhemoglobin, Venous (FO2HB) 05/25/2023 20:54:29 86.2 Above high normal 40.0-85.0 (% total Hgb) Final Carboxyhemoglobin 05/25/2023 20:54:29 1.4 <=1.5 (% total Hgb) Final Smokers: 0-9.0 % Methemoglobin 05/25/2023 20:54:29 0.4 <= 1.5 (% total Hgb) Final Deoxyhemoglobin/Hemoglo bin.total in Venous blood 05/25/2023 20:54:29 12.0 (% total Hgb) Final Oxygen content in Venous blood 05/25/2023 20:54:29 12.0 7.0-18.0 (%vol) Final Bicarbonate, Venous, POC (i-STAT) 05/25/2023 20:54:29 15.3 Below low normal 23.0-31.0 (mmol/L) Final Performing Location LABORATORY [facility] - [address] [place], [place] [address]laura [place]. [place] [address]
--- OUTSIDE RECORDS SUMMARY | 2023-06-30 22:50 | External Medical Summary ---
Author Name Unknown Address Unknown Organization K1F:LABORATORY [facility] - [address] [place] [address] Laboratory Report Ordering Provider Test Date Status JIM DIXON 05/25/2023 20:54:29 Final Observation Date Value Abnormality Reference (Units ) Status Lactic Acid, Whole Blood 05/25/2023 20:54:29 1.0 0.4-2.0 (mmol/L) Final Performing Location LABORATORY [facility] - [address] [place] [address]
--- OUTSIDE RECORDS SUMMARY | 2023-06-30 22:50 | External Medical Summary ---
Author Name Unknown Address Unknown Organization K01:LABORATORY [facility] - [address] [facility] [place] [address] Laboratory Report Ordering Provider Test Date Status JOSE HOPPER 05/26/2023 03:22:08 Correction Observation Date Value Abnormality Reference (Units) Status Color of Urine by Auto 05/26/2023 03:22:08 Light Yellow Colorless, Light Yellow, Yellow, Dark Yellow Final Clarity, Urine 05/26/2023 03:22:08 Slightly Cloudy Abnormal Clear Final Glucose [Mass/volume] in Urine by Automated test strip 05/26/2023 03:22:08 Negative Negative (mg/dL) Final Bilirubin.total [Presence] in Urine by Automated test strip 05/26/2023 03:22:08 Negative Negative Final Ketones [Mass/volume] in Urine by Automated test strip 05/26/2023 03:22:08 Negative Negative (mg/dL) Final Specific gravity, Urine 05/26/2023 03:22:08 1.031 Above high normal 1.003-1.030 Final Hemoglobin [Presence] in Urine by Automated test strip 05/26/2023 03:22:08 Moderate Abnormal Negative Final pH, Urine 05/26/2023 03:22:08 6.0 5.0-7.5 (Units) Final Protein [Mass/volume] in Urine by Automated test strip 05/26/2023 03:22:08 30 Abnormal Negative (mg/dL) Final Urobilinogen [Mass/volume] in Urine by Automated test strip 05/26/2023 03:22:08 Normal Normal (mg/dL) Final Nitrite [Presence] in Urine by Automated test strip 05/26/2023 03:22:08 Negative Negative Final Leukocyte esterase [Presence] in Urine by Automated test strip 05/26/2023 03:22:08 Small Abnormal Negative Final RBC, Urine 05/26/2023 03:22:08 20-29 Abnormal 0-2 (/HPF) Final WBC, Urine 05/26/2023 03:22:08 50+ Abnormal 0-2 (/HPF) Final Bacteria [#/area] in Urine sediment by Microscopy high power field 05/26/2023 03:22:08 26-50 Abnormal 0-25 (/HPF) Final Leukocyte clumps [#/area] in Urine sediment by Microscopy high power field 05/26/2023 03:22:08 Present Abnormal None (/HPF) Final Performing Location LABORATORY [facility] - [address] [facility] [address]
--- OUTSIDE RECORDS SUMMARY | 2023-06-30 22:50 | External Medical Summary ---
Author Name Unknown Address Unknown Organization K01:LABORATORY [facility] - [address] [place] [address] Laboratory Report Ordering Provider Test Date Status JOSE HOPPER 05/26/2023 04:33:00 Final Observation Date Value Abnormality Reference (Units ) Status Magnesium 05/26/2023 04:33:00 1.7 1.5-2.6 (m g/dL) Final Performing Location LABORATORY [facility] - [address] [place] [address]
--- OUTSIDE RECORDS SUMMARY | 2023-06-30 22:50 | External Medical Summary ---
Author Name Unknown Address Unknown Organization K01:LABORATORY [facility] - [address] [place] [address] Laboratory Report Ordering Provider Test Date Status JOSE HOPPER 05/26/2023 03:22:08 Final Observation Date Value Abnormality Reference (Units ) Status Methicillin resistant Staphylococcus aureus (MRSA) DNA [Presence] in Nose by DEVANTE with probe detection 05/26/2023 03:22:08 Negative Negative Final No Methicillin resistant Sta phylococcus aureus detected by PCR (amplified probe). Performing Location LABORATORY [facility] - [address] [place] [address]
--- OUTSIDE RECORDS SUMMARY | 2023-06-30 22:50 | External Medical Summary | Summary of Care ---
Author Name Unknown Organization [facility] Address [address] [facility] [place] [address] Phone [phone] Care Team Providers Care Hair Specialist Name Role Phone Nichole Lizarraga MD Primary Care Provider + Reason for Visit * Reason Onset Date Comments Hospital Follow-Up 05/14/2023 LUZMARIA Encounter Details Date Type Department Care Team (Late st Contact Info) Description 05/14/2023 Telephone Ancillary Jim Delgado [place] [address] [place] [address] Nichole Lizarraga MD [address] [facility] [place] [address] Hospital Follow-Up (LUZMARIA) Allergies Active Allergy Reactions Criticality Noted Date Comments Penicillins Edema airway,Rash High 03/10/2012 Last dose age 14 Tolerated Ancef Pollen 01/17/2021 Ragweed 11/05/2022 documented as of this encounter (statuses as of 05/14/2023) Medications Medication Sig Dispensed Refills Start Date End Date Status MULTIVITAMINS PO TABS 1 TABLET DAILY 0 03/10/2012 Active PROBIOTIC DAILY PO CAPS daily 0 Active Calcium Carbonate-Vitamin D 600-400 MG-UNIT Oral Tablet Chewable Take 1 Tablet by mouth in the morning. 0 10/11/2015 Active loratadine (CLARITIN) 10 MG Tablet Take 1 Tablet by mouth at bedtime. 30 Tab 5 10/16/2016 Active fluticasone (FLONASE) 50 MCG/ACT nasal sprayIndications:Chr onic 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 1 Inhaler 5 04/21/2018 Active Econazole Nitrate 1 % External Cream (Spectazole)Indicati [...] for Nausea. 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 30 Tablet 2 03/01/2023 Active Additional Information Patient not taking.Reported on 05/01/2023 [...] for constipation. 238 g 0 05/13/2023 Active Sennosides 8.6 MG Oral Tablet (Senokot) Take 2 Tablets by mouth daily in the morning. 28 Tablet 1 05/13/2023 Active oxyCODONE HCl 5 MG Oral Tablet (Oxy IR) Take 1 Tablet by mouth every 4 hours as needed for severe pain. 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 Chronic neutropenia 01/06/2018 Neutropenia documented as of this encounter (statuses as of 05/14/2023) Resolved Problems Problem Noted Date Diagnosed Date Resolved Date Chronic kidney disease, stage 3b 04/30/2022 05/01/2023 Overview: Per CKD protocol Chronic kidney disease, stage 3a 05/29/2021 05/02/2022 Overview: Per CKD protocol Fever 09/13/2015 10/21/2017 Kidney stone on left side Inguinal hernia 10/21/2017 Overview: Surgical repair documented as of this encounter (statuses as of 05/14/2023) Immunizations Name Administration Dates Next Due COVID-19 mRNA, LNP-s, No Pre serve, 2-Dose Series (PA Semi) 01/05/2021,05/07/2020,04/16/2020 COVID-19, LNP-s, No Preserve , Jasbir-sucrose, Ages 12+ (PA Semi) 09/06/2021 Covid-19, Mrna, Lnp-s, Pf, B ivalent, 30 Mcg, IM, 12 yrs and above (PA Semi) 01/31/2022 PPD 02/19/2017 Pneumococcal Conjugate Vacc, 13 [...] Never Alcohol Use Standard Drinks/Week Comments Yes 2 (1 standard drink = 0.6 oz [...] (15 years old or older) No 05/08/19 24 Cognitive Status Response Date of Assessm ent Because of a physical, menta l, or emotional condition, do you have serious difficulty concentrating, remembering, or making decisions? (5 years old or older) No 05/08/2023 documented as of this encounter Miscellaneous Notes * Telephone Encounter - Ambika Samaniego RN - 05/14/2023 7:29 AM EDT Transitions of Care Note Reason for Referral: Recent Admission Phone visit for follow up: Inpatient Hospitalization Admitted to: [facility], Date: 05/08/2023 Discharged to: Home, Date: 05/13/2023 LUZMARIA call not indicated due to patient admitted for planned surgery for malignant neoplasm of dome of urinary bladder. Patient to follow-up with urology. documented in this encounter Plan of Treatment Upcoming Encounters Date Type Department Care Team (Late st Contact Info) Description 06/04/2023 9:30 AM EDT Office Visit Urology, [place] [address] [place] [address] Saul Vargas MD [address] [place] [address] 06/10/2023 10:30 AM EDT Office Visit Urology, [facility] [address] [place] [address] Chris Royal MD [address] [facility] [address] [place] [address] 06/24/2023 10:40 AM EDT Office Visit Nephrology, [facility] [address] [place] [address] Demetrius Sherman MD 200 [facility] [place] [address] 07/25/2023 11:15 AM EDT Office Visit Hematology/Oncology [facility] [address] [place] [address] Aguilar Lizarraga MD 200 [facility] [place], [place] [address] 11/12/2023 9:20 AM EDT Office Visit General Internal Medicine [facility] [place] [address] [place] [address] Nichole Lizarraga MD [address] [facility] [place], [place] [address] Health Maintenance Due Date Last Done Comments Zoster Vaccines (1 of 2) 01/23/1971 Colonoscopy 01/23/1997 Fecal Occult Blood Test 01/23/1997 Sigmoidoscopy 01/23/1997 DTaP,Tdap,and Td Vaccines (2 - Td or Tdap) 09/02/2022 09/02/2012 Albumin/Creatinine Ratio 03/13/2023 03/13/2022, 10/20 Cologuard 06/09/2023 06/08/2020, 10/25/2016 Colorectal Cancer Screening 06/09/2023 Mammogram 10/12/2023 10/11/2022, 05/0 04/2021, 01/18/2020, Additional history exists Depression Screening 11/07/2023 11/06/2022 GFR 11/13/2023 05/13/2023, 04/19, 05/11/2023, Additional history exists CKD PHOS USE SMARTSET 50331 05/10/202404/19, 03/13/2022, 11/09/2021 CKD HGB USE SMARTSET 06475 05/12/202405/12, 05/13/2023, 05/12/2023, Additional history exists DXA Scan 10/02/2024 10/02/2022, [...] with: Not Discussed due to patient's condition Code Status History Code Status Date Activated Date Inactivated Comments Full Code 02/04/2023 9:25 AM 02/04/2023 2:55 [...] patients wishes and were consensually agreed upon. Full Code 06/05/2021 6:56 AM 06/05/2021 8:47 AM This order reflects the patients wishes and were consensually agreed upon. Care Teams Hair Specialist Relationship Specialty Start Date End Date Nichole Lizarraga MD [address] [place] [id number] PCP - General Internal Medicine 03/10/12 documented as of this encounter
--- OUTSIDE RECORDS SUMMARY | 2023-06-30 22:50 | External Medical Summary ---
Author Name Unknown Address Unknown Organization K01:LABORATORY [facility] - [address] [place] [address] Laboratory Report Ordering Provider Test Date Status JIM DIXON 05/25/2023 21:08:52 Final Observation Date Value Abnormality Reference (Units ) Status Methicillin resistant Staphylococcus aureus (MRSA) DNA [Presence] in Nose by DEVANTE with probe detection 05/25/2023 21:08:52 Negative Negative Final No Methicillin resistant Sta phylococcus aureus detected by PCR (amplified probe). Performing Location LABORATORY [facility] - [address] [place] [address]
--- OUTSIDE RECORDS SUMMARY | 2023-06-30 22:50 | External Medical Summary | Summary of Care ---
Author Name Unknown Organization [facility] Address [address] [place] [address] Phone [phone] Care Team Providers Care Make Up Worker Name Role Phone Nichole Lizarraga MD Primary Care Provider + Reason for Visit * Reason Onset Date Comments Advice 05/14/2023 Hospital Follow-Up 05/14/2023 Encounter Details Date Type Department Care Team (Late st Contact Info) Description 05/14/2023 Telephone Urology, [place] [address] [place] [address] Saul Vargas MD [address] [place] [address] Advice; Hospital Follow-Up Allergies Active Allergy Reactions Criticality Noted Date [...] mRNA, LNP-s, No Pre serve, 2-Dose Series (Deposco) 01/05/2021,05/07/2020,04/16/2020 COVID-19, LNP-s, No Preserve , Jasbir-sucrose, Ages 12+ (Pfizer) 09/06/2021 Covid-19, Mrna, Lnp-s, Pf, B ivalent, 30 Mcg, IM, 12 yrs and above (Deposco) 01/31/2022 PPD 02/19/2017 Pneumococcal Conjugate Vacc, 13 [...] encounter Miscellaneous Notes * Telephone Encounter - Steffi Acevedo RN - 05/14/2023 4:12 PM EDT Returned call to patient who reports she is having excessive drainage from the drain site. She had tried to apply a dressing and apply pressure to the site. Explained it is best to apply a larger dressing such as an ABD pad and fold this in half and secure with paper tape. Discussed the dressing should be changed as needed when saturated. She reports the drainage is a serous clear to light yellowwhich is normal. Discussed signs and symptoms for infection and reinforced that the drainage will abruptly stop in a few days. After there is no drainage, then site can be left open to air. She denies fever, chills, nausea or constipation. She states she is doing well with her ostomy and ordered her supplies today. Answered her questions to her satisfaction and encouraged her to call with any additional questions or concerns. Patient scheduled for post op follow up on 06-04-[address] Vargas and encouraged her to call with any questions or concerns prior to that appointment. Steffi Acevedo RN, BSN 05/14/2023 4:19 PM * Telephone Encounter - Briana Lucas OSA - 05/14/2023 11:23 AM EDT Pt had her drain removed and she is having a lot of clear yellowish liquid drain out of it. It doesnot smell but she is using up quite a bit of gauze and tape and it asking what the best way is too dress it. DOMINIQUE Lawrence 11:26 AM 05/14/2023 documented in this encounter Plan of Treatment Upcoming Encounters Date Type Department Care Team (Late st Contact Info) Description 06/04/2023 9:30 AM EDT Office Visit Urology, [place] [address] [place] [address] Saul Vargas MD [address] [place] [address] 06/10/2023 10:30 AM EDT Office Visit Urology, [facility] [address] [facility] [place] [address] Chris Royal MD [address] [facility] [address] [place] [address] 06/24/2023 10:40 AM EDT Office Visit Nephrology, [facility] [address] [facility] [place] [address] Demetrius Sherman MD [address] [facility] [place] [address] 07/25/2023 11:15 AM EDT Office Visit Hematology/Oncology [facility] [address] [place] [address] Aguilar Lizarraga MD [address] [facility] [place] [address] 11/12/2023 9:20 AM EDT Office Visit General Internal Medicine [facility] [place] [address] [place] [address] Nichole Lizarraga MD [address] [place] [address] Health Maintenance Due Date Last Done Comments [...] Additional history exists CKD PHOS USE SMARTSET 39955 05/10/202404/19, 03/13/2022, 11/09/2021 CKD HGB USE SMARTSET 60789 05/12/202405/12, 05/13/2023, 05/12/2023, Additional history exists DXA [...] and were consensually agreed upon. Care Teams Make Up Worker Relationship Specialty Start Date End Date Nichole Lizarraga MD [address] [place] [address] PCP - General Internal Medicine 03/10/12 documented as of this encounter
--- OUTSIDE RECORDS SUMMARY | 2023-06-30 22:50 | External Medical Summary ---
Author Name Unknown Address Unknown Organization K1F:LABORATORY [address] [place] [address] Laboratory Report Ordering Provider Test Date Status JIM DIXON 05/25/2023 21:02:00 Final Observation Date Value Abnormality Reference (Units ) Status Bacteria identified in Specimen by Culture 05/25/2023 21:02:00 No growth Final Test: Culture, Blood
Sp ecimen Source: Blood, Venous
Specimen Type: Blood
Specimen Date: 05/25/2023 9:02 PM
Result Date: 05/30/2023 10:01 PM
Result Status: Final result
Resulting Lab: LABORATORY [facility]
[address] [place] [address]
[place] [address]

CULTURE

No growth

null Performing Location LABORATORY [address] [place] [address]
--- OUTSIDE RECORDS SUMMARY | 2023-06-30 22:50 | External Medical Summary | Summary of Care ---
Author Name Unknown Organization [facility] Address [address] [facility] [facility] [address] Phone [phone] Care Team Providers Care Bark Fitter Name Role Phone Nichole Lizarraga MD Primary Care Provider + Reason for Visit * Reason Onset Date Comments Hospital Follow-Up 05/24/2023 Hem/onc disch arge Encounter Details Date Type Department Care Team (Late st Contact Info) Description 05/24/2023 Telephone Hematology/Oncology Treatment, [place] [address] [place] [address] Aguilar Lizarraga MD [address] [place] [address] Hospital Follow-Up (Hem/onc discharge) Allergies Active Allergy Reactions Criticality Noted Date Comments Penicillins Edema airway,Rash High 03/10/2012 Last dose age 14 Tolerated Ancef Pollen 01/17/2021 Ragweed 11/05/2022 documented as of this encounter (statuses as of 05/24/2023) Medications Medication Sig Dispensed Refills Start Date [...] as of this encounter (statuses as of 05/24/2023) Active Problems Problem Noted Date Diagnosed Date [...] as of this encounter (statuses as of 05/24/2023) Resolved Problems Problem Noted Date Diagnosed Date Resolved Date Chronic kidney disease, stage 3b 04/30/2022 05/01/2023 Overview: Per CKD protocol Chronic kidney disease, stage 3a 05/29/2021 05/02/2022 Overview: Per CKD protocol Fever 09/13/2015 10/21/2017 Kidney stone on left side Inguinal hernia 10/21/2017 Overview: Surgical repair documented as of this encounter (statuses as of 05/24/2023) Immunizations Name Administration Dates Next Due COVID-19 mRNA, LNP-s, No Pre serve, 2-Dose Series ([employer]) 01/05/2021,05/07/2020,04/16/2020 COVID-19, LNP-s, No Preserve , Jasbir-sucrose, Ages 12+ ([employer]) 09/06/2021 Covid-19, Mrna, Lnp-s, Pf, B ivalent, 30 Mcg, IM, 12 yrs and above ([employer]) 01/31/2022 PPD 02/19/2017 Pneumococcal Conjugate Vacc, [...] Telephone Encounter - Dee Brush RN - 05/24/2023 12:54 PM EDT HEMATOLOGY/ONCOLOGY HOSPITAL DISCHARGE FOLLOW-UP Call placed to patient to follow up after hospital discharge. Dates patient was admitted at [facility]: 05/08/23 to 05/13/23 with a primary diagnosis of bladder cancer, neutropenia. Operations & Procedures: 1. Radical cystectomy, hysterectomy, bilateral salpinoophorectomy, anterior vaginectomy (anterior pelvic exenteration) 2. Ileal conduit urinary diversion 3. Bilateral standard pelvic lymph node dissection Currently has the following complaints: states that her recovery from surgery has been slow, which she expected. Was told it could take 2 years to fully recover. . All current medications reviewed with patient. Patient verbalizes understanding of regimen. Confirmed that she is still self administering zarxio 4 days a week (Mon, Tues, Thurs, Fri). Patient had been getting weekly lab work prior to surgery. Will resume weekly labs early next week.Offered home phlebotomy referral or to see if home care can draw labs during visits- she declined, states that she will go to the lab as a walk in. Post discharge hospital visit is scheduled and patient is aware- can keep appt in July as scheduled. documented in this encounter Plan of Treatment Upcoming Encounters Date Type Department Care Team (Late st Contact Info) Description 06/04/2023 9:30 AM EDT Office Visit Urology, [facility] [address] [place] [address] Saul Vargas MD [address] [place] [address] 06/10/2023 10:30 AM EDT Office Visit Urology, [facility] [address] [facility] [place] [address] Chris Royal MD [address] [place] [address] 06/24/2023 10:40 AM EDT Office Visit Nephrology, [facility] [address] [facility] [place] [address] Demetrius Sherman MD [address] [facility] [place] [address] 07/25/2023 11:15 AM EDT Office Visit Hematology/Oncology [facility] [address] [facility] [place] [phone] Aguilar Lizarraga MD [address] [facility] [place] [address] 11/12/2023 9:20 AM EDT Office Visit General Internal Medicine [facility] [address] [facility] [place] [address] Nichole Lizarraga MD [address] [facility] [place] [address] Health Maintenance Due Date Last Done Comments [...] Additional history exists CKD PHOS USE SMARTSET 18402 05/10/202404/19, 03/13/2022, 11/09/2021 CKD HGB USE SMARTSET 58393 05/12/202405/12, 05/13/2023, 05/12/2023, Additional history exists DXA [...] and were consensually agreed upon. Care Teams Bark Fitter Relationship Specialty Start Date End Date Nichole Lizarraga MD [address] [facility] [place] [address] PCP - General Internal Medicine 03/10/12 documented as of this encounter
--- OUTSIDE RECORDS SUMMARY | 2023-06-30 22:50 | External Medical Summary ---
Author Name Unknown Address Unknown Organization [id number]:LABORATORY [facility] - [address] [place] [address] Laboratory Report Ordering Provider Test Date Status JIM DIXON 05/25/2023 20:54:29 Final Less than 0.5 ng/mL: Low ris k for progression to sepsis. Review patients condition for localized infections.

0.5 to 2.0 ng/mL: Intermediate risk for progresion to sepsis. Review underlying conditions. Recommend repeat PCT after 6 hours has elapsed.

Greater than 2.0 ng/mL: high risk for progression to sepsis unless other causes are known. Observation Date Value Abnormality Reference (Units ) Status Procalcitonin [Mass/volume] in Serum or Plasma by Immunoassay 05/25/2023 20:54:29 11.53 Above high normal <0.10 (ng/mL) Final Performing Location LABORATORY [facility] - [address] [place] [address]
--- OUTSIDE RECORDS SUMMARY | 2023-06-30 22:50 | External Medical Summary ---
Author Name Unknown Address Unknown Organization [id number]:LABORATORY [facility] [place] - [facility] [address] [facility] [address] [place] [address] Laboratory Report Ordering Provider Test Date Status OMAR HANDLEY 05/26/2023 04:33:00 Final Observation Date Value Abnormality Reference (Units ) Status BUN 05/26/2023 04:33:00 39 Above high normal 6-20 (mg/dL) Final Creatinine 05/26/2023 04:33:00 1.8 Above high normal 0.5-1.0 (mg/dL) Final Glomerular filtration rate/1.73 sq M.predicted [Volume Rate/Area] in Serum, Plasma or Blood by Creatinine-based formula (CKD-EPI) 05/26/2023 04:33:00 29 Below low normal >=60 (mL/min) Final eGFR is calculated based on the CKD-EPI 2020 equation Sodium 05/26/2023 04:33:00 134 Below low normal 135 -146 (mmol/L) Final Potassium 05/26/2023 04:33:00 4.3 3.5-5.1 (m mol/L) Final Cl 05/26/2023 04:33:00 105 98-107 (mm ol/L) Final CO2 05/26/2023 04:33:00 15 Below low normal 22- 32 (mmol/L) Final Anion gap 05/26/2023 04:33:00 14 7-15 (mmol /L) Final Glucose 05/26/2023 04:33:00 123 Above high normal 70 -120 (mg/dL) Final Calcium 05/26/2023 04:33:00 7.6 Below low normal 8.4 -10.2 (mg/dL) Final Performing Location LABORATORY [facility] - [address] [place] [address]
--- OUTSIDE RECORDS SUMMARY | 2023-06-30 22:50 | External Medical Summary ---
Author Name Unknown Address Unknown Organization K01:LABORATORY [place] [address] [address] [facility] [place] [address] Laboratory Report Ordering Provider Test Date Status MAKENNA HOPPERBRIAN 05/26/2023 04:34:00 Final Observation Date Value Abnormality Reference (Units ) Status Calcium.ionized [Moles/volume] in Serum or Plasma by Ion-selective membrane electrode (ISE) 05/26/2023 04:34:00 1.16 1.13-1.32 (mmol/L) Final This test was developed and its performance characteristics dtermined by [employer]. It has not been cleared or approved by the US Food and Drug Administration Performing Location [facility] [place] [address] [address] [facility] [address]
--- OUTSIDE RECORDS SUMMARY | 2023-06-30 22:50 | External Medical Summary ---
Author Name Unknown Address Unknown Organization [id number]:LABORATORY [facility] - [address] [place], [place] [address] [address] Laboratory Report Ordering Provider Test Date Status JIM DIXON 05/25/2023 20:54:29 Final Observation Date Value Abnormality Reference (Units ) Status Bacteria identified in Specimen by Culture 05/25/2023 20:54:29 No growth Final Test: Culture, Blood (site 2)
Specimen Source: Blood, Venous
Specimen Type: Blood
Specimen Date: 05/25/2023 8:54 PM
Result Date: 05/30/2023 10:01 PM
Result Status: Final result
Resulting Lab: LABORATORY [facility]
[address] [place] [address]
[place] [address]

CULTURE

No growth

null Performing Location LABORATORY [facility] - [address] [place] [address] [address] [place] [address]
--- OUTSIDE RECORDS SUMMARY | 2023-06-30 22:51 | External Medical Summary ---
Author Name Unknown Address Unknown Organization : Laboratory Report Ordering Provider Test Date Status KEITH DAVIDSON 05/12/2023 04:54:00 Final Observation Date Value Abnormality Reference (Units ) Status Performing Location
--- OUTSIDE RECORDS SUMMARY | 2023-06-30 22:51 | External Medical Summary ---
Author Name Unknown Address Unknown Organization [id number]:LABORATORY [facility] - [facility] [address] [facility] [address] [place] [address] Laboratory Report Ordering Provider Test Date Status SUE COLINDRES 05/10/2023 05:35:00 Final Until discontinued Observation Date Value Abnormality Reference (Units ) Status WBC, Total 05/10/2023 05:35:00 3.75 Below low normal 4.00-10.80 (K/uL) Final RBC 05/10/2023 05:35:00 3.05 3.85-5.15 (M/uL) Final Hemoglobin 05/10/2023 05:35:00 9.2 Below low normal 12.0-15.3 (g/dL) Final HCT 05/10/2023 05:35:00 28.4 Below low normal 36.0-45.2 (%) Final MCV 05/10/2023 05:35:00 93.1 81.5-97.5 (fL) Final MCH 05/10/2023 05:35:00 30.2 27.0-34.0 (pg) Final MCHC 05/10/2023 05:35:00 32.4 32.0-36.0 (g/dL) Final RDW 05/10/2023 05:35:00 15.8 11.5-15.5 (%) Final Platelets 05/10/2023 05:35:00 128 Below low normal 140-400 (K/uL) Final MPV 05/10/2023 05:35:00 12.6 6.6-11.1 (fL) Final Nucleated erythrocytes/100 leukocytes [Ratio] in Blood by Automated count 05/10/2023 05:35:00 0 <=0 (/100 WBCs) Final Performing Location LABORATORY [facility] - [address] [place] [address]
--- OUTSIDE RECORDS SUMMARY | 2023-06-30 22:51 | External Medical Summary ---
Author Name Unknown Address Unknown Organization K01:LABORATORY [facility] [place] - [facility] [address] [place] [address] Laboratory Report Ordering Provider Test Date Status KEITH DAVIDSON 05/11/2023 15:21:00 Final Observation Date Value Abnormality Reference (Units ) Status BUN 05/11/2023 15:21:00 19 6-20 (mg/dL) Final Creatinine 05/11/2023 15:21:00 1.0 0.5-1.0 (mg/dL) Final Glomerular filtration rate/1.73 sq M.predicted [Volume Rate/Area] in Serum, Plasma or Blood by Creatinine-based formula (CKD-EPI) 05/11/2023 15:21:00 62 >=60 (mL/min) Final eGFR is calculated based on the CKD-EPI 2020 equation Sodium 05/11/2023 15:21:00 140 135-146 (m mol/L) Final Potassium 05/11/2023 15:21:00 4.5 3.5-5.1 (m mol/L) Final Cl 05/11/2023 15:21:00 107 98-107 (mm ol/L) Final CO2 05/11/2023 15:21:00 23 22-32 (mmo l/L) Final Anion gap 05/11/2023 15:21:00 10 7-15 (mmol /L) Final Glucose 05/11/2023 15:21:00 130 Above high normal 70 -120 (mg/dL) Final Calcium 05/11/2023 15:21:00 8.7 8.4-10.2 ( mg/dL) Final Performing Location LABORATORY [facility] [place] - [address] [place] [address]
--- OUTSIDE RECORDS SUMMARY | 2023-06-30 22:51 | External Medical Summary ---
Author Name Unknown Address Unknown Organization K01:LABORATORY [facility] - [address] [place] [address] Laboratory Report Ordering Provider Test Date Status KEITH DAVIDSON 05/11/2023 15:21:00 Final Observation Date Value Abnormality Reference (Units ) Status Phosphate 05/11/2023 15:21:00 2.8 2.5-4.8 (m g/dL) Final Performing Location LABORATORY [facility] - [address] [place] [address]
--- OUTSIDE RECORDS SUMMARY | 2023-06-30 22:51 | External Medical Summary ---
Author Name Unknown Address Unknown Organization K01:LABORATORY [facility] - [address] [facility] [place] [address] Laboratory Report Ordering Provider Test Date Status KEITH DAVIDSON 05/11/2023 05:00:00 Final Observation Date Value Abnormality Reference (Units ) Status SYNC LEUKOCYTES IN BLOOD BY AUTOMATED COUNT 05/11/2023 05:00:00 4.75 4.00-10.80 (K/uL) Final Neutrophils/100 leukocytes in Blood by Manual count 05/11/2023 05:00:00 35.0 Below low normal 40.0-75.0 (%) Final Lymphocytes/100 leukocytes in Blood by Manual count 05/11/2023 05:00:00 38.0 18.0-42.0 (%) Final Monocytes/100 leukocytes in Blood by Manual count 05/11/2023 05:00:00 21.0 Above high normal 1.0-11.0 (%) Final Eosinophils/100 leukocytes in Blood by Manual count 05/11/2023 05:00:00 3.0 0.0-6.0 (%) Final Basophils/100 leukocytes in Blood by Manual count 05/11/2023 05:00:00 1.0 0.0-2.0 (%) Final Myelocytes/100 leukocytes in Blood by Manual count 05/11/2023 05:00:00 2.0 Above high normal <=0.0 (%) Final Neutrophils [#/volume] in Blood by Manual count 05/11/2023 05:00:00 1.66 Below low normal 1.80-7.70 (K/uL) Final Lymphocytes [#/volume] in Blood by Manual count 05/11/2023 05:00:00 1.81 1.00-4.80 (K/uL) Final Monocytes [#/volume] in Blood by Manual count 05/11/2023 05:00:00 1.00 0.00-1.10 (K/uL) Final Eosinophils [#/volume] in Blood by Manual count 05/11/2023 05:00:00 0.14 0.00-0.70 (K/uL) Final Basophils [#/volume] in Blood by Manual count 05/11/2023 05:00:00 0.05 0.00-0.20 (K/uL) Final Myelocytes [#/volume] in Blood by Manual count 05/11/2023 05:00:00 0.10 Above high normal <=0.00 (K/uL) Final Dohle body [Presence] in Blood by Light microscopy 05/11/2023 05:00:00 Present Abnormal None Seen Final Variant lymphocytes [Presence] in Blood by Light microscopy 05/11/2023 05:00:00 Present Abnormal None Seen Final Performing Location LABORATORY [facility] - [address] [facility] [address]
--- OUTSIDE RECORDS SUMMARY | 2023-06-30 22:51 | External Medical Summary ---
Author Name Unknown Address Unknown Organization K01:[facility] [address] [facility] [address] [facility] [address] Laboratory Report Ordering Provider Test Date Status KEITH DAVIDSON 05/13/2023 08:47:08 Final Collect and send fluid from DAVID drain Observation Date Value Abnormality Reference (Units ) Status Creatinine, Body Fluid 05/13/2023 08:47:08 1.0 (mg/dL) Final The reference interval(s) an d other method performance specifications may not be available for this body fluid. Comparison of this result with the concentration in the blood, serum, or plasma is recommended. The test result must be integrated into the clinical context for interpretation.

Please refer to test catalog ([email or web address]/body_fluids.cfm) for additional interpretive information.

This test was developed and its performance characteristics determined by [employer]. It has not been cleared or approved by the US Food and Drug Administration. Performing Location LABORATORY [place] [address] [address] [facility] [address]
--- OUTSIDE RECORDS SUMMARY | 2023-06-30 22:51 | External Medical Summary ---
Author Name Unknown Address Unknown Organization K01:LABORATORY [facility] - [address] [facility] [place] [address] Laboratory Report Ordering Provider Test Date Status KEITH DAVIDSON 05/12/2023 04:54:00 Final Observation Date Value Abnormality Reference (Units ) Status SYNC LEUKOCYTES IN BLOOD BY AUTOMATED COUNT 05/12/2023 04:54:00 3.67 Below low normal 4.00-10.80 (K/uL) Final Neutrophils/100 leukocytes in Blood by Manual count 05/12/2023 04:54:00 29.0 Below low normal 40.0-75.0 (%) Final Lymphocytes/100 leukocytes in Blood by Manual count 05/12/2023 04:54:00 40.0 18.0-42.0 (%) Final Monocytes/100 leukocytes in Blood by Manual count 05/12/2023 04:54:00 10.0 1.0-11.0 (%) Final Eosinophils/100 leukocytes in Blood by Manual count 05/12/2023 04:54:00 19.0 Above high normal 0.0-6.0 (%) Final Basophils/100 leukocytes in Blood by Manual count 05/12/2023 04:54:00 1.0 0.0-2.0 (%) Final Blasts/100 leukocytes in Blood by Manual count 05/12/2023 04:54:00 1.0 Above high normal <=0.0 (%) Final Neutrophils [#/volume] in Blood by Manual count 05/12/2023 04:54:00 1.06 Below low normal 1.80-7.70 (K/uL) Final Lymphocytes [#/volume] in Blood by Manual count 05/12/2023 04:54:00 1.47 1.00-4.80 (K/uL) Final Monocytes [#/volume] in Blood by Manual count 05/12/2023 04:54:00 0.37 0.00-1.10 (K/uL) Final Eosinophils [#/volume] in Blood by Manual count 05/12/2023 04:54:00 0.70 0.00-0.70 (K/uL) Final Basophils [#/volume] in Blood by Manual count 05/12/2023 04:54:00 0.04 0.00-0.20 (K/uL) Final Blasts [#/volume] in Blood by Manual count 05/12/2023 04:54:00 0.04 Above high normal <=0.00 (K/uL) Final Dohle body [Presence] in Blood by Light microscopy 05/12/2023 04:54:00 Present Abnormal None Seen Final Variant lymphocytes [Presence] in Blood by Light microscopy 05/12/2023 04:54:00 Present Abnormal None Seen Final Performing Location LAB[facility]ATORY [facility] - [address] [facility] [address]
--- OUTSIDE RECORDS SUMMARY | 2023-06-30 22:51 | External Medical Summary ---
Author Name Unknown Address Unknown Organization K01:[facility] [place] [facility] [address] [facility] [address] [facility] [address] Laboratory Report Ordering Provider Test Date Status KEITH DAVIDSON 05/11/2023 11:24:56 Final Collect and send fluid from DAVID drain Observation Date Value Abnormality Reference (Units ) Status Creatinine, Body Fluid 05/11/2023 11:24:56 0.9 (mg/dL) Final The reference interval(s) an d other method performance specifications may not be available for this body fluid. Comparison of this result with the concentration in the blood, serum, or plasma is recommended. The test result must be integrated into the clinical context for interpretation.

Please refer to test catalog ([email or web address]/catalog/body_fluids.cfm) for additional interpretive information.

This test was developed and its performance characteristics determined by [employer]. It has not been cleared or approved by the US Food and Drug Administration. Performing Location [facility] [place] [facility] [address] [facility] [address]
--- OUTSIDE RECORDS SUMMARY | 2023-06-30 22:51 | External Medical Summary ---
Author Name Unknown Address Unknown Organization K01:LAB[facility]ATORY [facility] - [address] [facility] [address] [place] [address] Laboratory Report Ordering Provider Test Date Status KEITH DAVIDSON 05/12/2023 04:54:00 Final Observation Date Value Abnormality Reference (Units ) Status WBC, Total 05/12/2023 04:54:00 3.67 Below low normal 4.00-10.80 (K/uL) Final RBC 05/12/2023 04:54:00 3.31 3.85-5.15 (M/uL) Final Hemoglobin 05/12/2023 04:54:00 9.9 Below low normal 12.0-15.3 (g/dL) Final HCT 05/12/2023 04:54:00 30.1 Below low normal 36.0-45.2 (%) Final MCV 05/12/2023 04:54:00 90.9 81.5-97.5 (fL) Final MCH 05/12/2023 04:54:00 29.9 27.0-34.0 (pg) Final MCHC 05/12/2023 04:54:00 32.9 32.0-36.0 (g/dL) Final RDW 05/12/2023 04:54:00 15.5 11.5-15.5 (%) Final Platelets 05/12/2023 04:54:00 185 140-400 (K/uL) Final MPV 05/12/2023 04:54:00 11.2 6.6-11.1 (fL) Final Nucleated erythrocytes/100 leukocytes [Ratio] in Blood by Automated count 05/12/2023 04:54:00 0 <=0 (/100 WBCs) Final Performing Location LABORATORY [facility] [place] - [address] [place] [address]
--- OUTSIDE RECORDS SUMMARY | 2023-06-30 22:51 | External Medical Summary ---
Author Name Unknown Address Unknown Organization K01:LABORATORY [facility] - [address] [place] [address] Laboratory Report Ordering Provider Test Date Status KEITH DAVIDSON 05/11/2023 15:21:00 Final Observation Date Value Abnormality Reference (Units ) Status Magnesium 05/11/2023 15:21:00 1.7 1.5-2.6 (m g/dL) Final Performing Location LABORATORY [facility] - [address] [place] [address]
--- OUTSIDE RECORDS SUMMARY | 2023-06-30 22:51 | External Medical Summary ---
Author Name Unknown Address Unknown Organization K01:[facility] [address] [facility] [address] Laboratory Report Ordering Provider Test Date Status JENS,WU 05/10/2023 05:35:00 Final Until discontinued Observation Date Value Abnormality Reference (Units ) Status SYNC LEUKOCYTES IN BLOOD BY AUTOMATED COUNT 05/10/2023 05:35:00 3.75 Below low normal 4.00-10.80 (K/uL) Final Neutrophils/100 leukocytes in Blood by Manual count 05/10/2023 05:35:00 28.0 Below low normal 40.0-75.0 (%) Final Lymphocytes/100 leukocytes in Blood by Manual count 05/10/2023 05:35:00 51.0 Above high normal 18.0-42.0 (%) Final Monocytes/100 leukocytes in Blood by Manual count 05/10/2023 05:35:00 17.0 Above high normal 1.0-11.0 (%) Final Eosinophils/100 leukocytes in Blood by Manual count 05/10/2023 05:35:00 1.0 0.0-6.0 (%) Final Basophils/100 leukocytes in Blood by Manual count 05/10/2023 05:35:00 3.0 Above high normal 0.0-2.0 (%) Final Neutrophils [#/volume] in Blood by Manual count 05/10/2023 05:35:00 1.05 Below low normal 1.80-7.70 (K/uL) Final Lymphocytes [#/volume] in Blood by Manual count 05/10/2023 05:35:00 1.91 1.00-4.80 (K/uL) Final Monocytes [#/volume] in Blood by Manual count 05/10/2023 05:35:00 0.64 0.00-1.10 (K/uL) Final Eosinophils [#/volume] in Blood by Manual count 05/10/2023 05:35:00 0.04 0.00-0.70 (K/uL) Final Basophils [#/volume] in Blood by Manual count 05/10/2023 05:35:00 0.11 0.00-0.20 (K/uL) Final Performing Location LAB[facility] [place] - [address] [facility] [address]
--- OUTSIDE RECORDS SUMMARY | 2023-06-30 22:51 | External Medical Summary ---
Author Name Unknown Address Unknown Organization K01:[place] [facility] [place] [address] [place] [address] Laboratory Report Ordering Provider Test Date Status SUE COLINDRES 05/10/2023 05:35:00 Final Until Discontinued Observation Date Value Abnormality Reference (Units ) Status BUN 05/10/2023 05:35:00 14 6-20 (mg/dL) Final Creatinine 05/10/2023 05:35:00 1.0 0.5-1.0 (mg/dL) Final Glomerular filtration rate/1.73 sq M.predicted [Volume Rate/Area] in Serum, Plasma or Blood by Creatinine-based formula (CKD-EPI) 05/10/2023 05:35:00 62 >=60 (mL/min) Final eGFR is calculated based on the CKD-EPI 2020 equation Sodium 05/10/2023 05:35:00 140 135-146 (m mol/L) Final Potassium 05/10/2023 05:35:00 4.2 3.5-5.1 (m mol/L) Final Cl 05/10/2023 05:35:00 110 Above high normal 98 -107 (mmol/L) Final CO2 05/10/2023 05:35:00 22 22-32 (mmo l/L) Final Anion gap 05/10/2023 05:35:00 8 7-15 (mmol /L) Final Glucose 05/10/2023 05:35:00 99 70-120 (mg /dL) Final Calcium 05/10/2023 05:35:00 7.9 Below low normal 8.4 -10.2 (mg/dL) Final Performing Location [facility] [facility] [place] [address] [place] [address]
--- OUTSIDE RECORDS SUMMARY | 2023-06-30 22:51 | External Medical Summary ---
Author Name Unknown Address Unknown Organization K01:[facility] [place] - [place] [address] [place] [id number] Laboratory Report Ordering Provider Test Date Status KEITH DAVIDSON 05/12/2023 04:54:00 Final Observation Date Value Abnormality Reference (Units ) Status BUN 05/12/2023 04:54:00 22 Above high normal 6-20 (mg/dL) Final Creatinine 05/12/2023 04:54:00 0.9 0.5-1.0 (mg/dL) Final Glomerular filtration rate/1.73 sq M.predicted [Volume Rate/Area] in Serum, Plasma or Blood by Creatinine-based formula (CKD-EPI) 05/12/2023 04:54:00 69 >=60 (mL/min) Final eGFR is calculated based on the CKD-EPI 2020 equation Sodium 05/12/2023 04:54:00 137 135-146 (m mol/L) Final Potassium 05/12/2023 04:54:00 4.1 3.5-5.1 (m mol/L) Final Cl 05/12/2023 04:54:00 108 Above high normal 98 -107 (mmol/L) Final CO2 05/12/2023 04:54:00 22 22-32 (mmo l/L) Final Anion gap 05/12/2023 04:54:00 7 7-15 (mmol /L) Final Glucose 05/12/2023 04:54:00 101 70-120 (mg /dL) Final Calcium 05/12/2023 04:54:00 8.2 Below low normal 8.4 -10.2 (mg/dL) Final Performing Location [facility] [place] - [address] [place] [id number]
--- OUTSIDE RECORDS SUMMARY | 2023-06-30 22:51 | External Medical Summary ---
Author Name Unknown Address Unknown Organization : Laboratory Report Ordering Provider Test Date Status KEITH DAVIDSON 05/13/2023 06:27:00 Final Observation Date Value Abnormality Reference (Units ) Status Performing Location
--- OUTSIDE RECORDS SUMMARY | 2023-06-30 22:51 | External Medical Summary | Summary of Care ---
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) [C67.1] Procedures REMOVE BLADDER,REVISE URINARY TRACT RADICAL HYSTERECTOMY CYSTECTOMY COMPLETE WITH URETEROILEAL CONDUIT WITH BILATERAL PELVIC LYMPHADENECTOMY RADICAL ABDOMINAL HYSTERECTOMY Saul Vargas MD [address] [place] [address] Or [facility] [address] [place] [address] Referral ID Status Reason Start Date Expiration Date Visits Re quested Visits Authorized [id number] Encounter Details Date Type Department Care Team (Latest Contact Info) Description 05/08/2023 8:19 AM EDT - 05/13/2023 11:58 AM EDT Hospital Encounter [facility], [facility] [address] [place] [address] Saul Vargas MD [address] [place] [address] Pt Handout (on AVS) Discharge Disposition: Home - Self Care Allergies Active Allergy Reactions Criticality Noted Date Comments Penicillins Edema airway,Rash High 03/10/2012 Last dose age 14 Tolerated Ancef Pollen 01/17/2021 Ragweed 11/05/2022 documented as of this encounter (statuses as of 05/13/2023) Medications Medication Sig Dispensed Refills Start Date End Date Status MULTIVITAMINS PO TABS 1 TABLET DAILY 0 3 Active PROBIOTIC DAILY PO CAPS daily 0 Active Calcium Carbonate-Vitamin D 600-400 MG-UNIT Oral Tablet Chewable Take 1 Tablet by mouth in the morning. 0 6 Active loratadine (CLARITIN) 10 MG Tablet Take 1 Tablet by mouth at bedtime. 30 Tab 5 7 Active fluticasone (FLONASE) 50 MCG/ACT nasal sprayIndications:Ch ronic 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 1 Inhaler 5 9 Active Econazole Nitrate 1 % External Cream (Spectazole)Indicat [...] for Nausea. 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 30 Tablet 2 4 Active Additional Information Patient not taking.Reported on [...] for constipation. 238 g 0 4 Active Sennosides 8.6 MG Oral Tablet (Senokot) Take 2 Tablets by mouth daily in the morning. 28 Tablet 1 4 Active oxyCODONE HCl 5 MG Oral Tablet (Oxy IR) Take 1 Tablet by mouth every 4 hours as needed for severe pain. 5 Tablet 0 4 Active Solifenacin Succinate 5 MG Oral Tablet (VESIcare) Take 1 Tablet by mouth in the morning. 90 Tablet 3 3 05/13/19 24 Discontinued documented as of this encounter (statuses as of 05/13/2023) Active Problems Problem Noted Date Diagnosed Date [...] as of this encounter (statuses as of 05/13/2023) Resolved Problems Problem Noted Date Diagnosed Date Resolved Date Chronic kidney disease, stage 3b 04/30/2022 05/01/2023 Overview: Per CKD protocol Chronic kidney disease, stage 3a 05/29/2021 05/02/2022 Overview: Per CKD protocol Fever 09/13/2015 10/21/2017 Kidney stone on left side Inguinal hernia 10/21/2017 Overview: Surgical repair documented as of this encounter (statuses as of 05/13/2023) Immunizations Name Administration Dates Next Due COVID-19 mRNA, LNP-s, No Pre serve, 2-Dose Series (AQH) 01/05/2021,05/07/2020,04/16/2020 COVID-19, LNP-s, No Preserve , Jasbir-sucrose, [...] Sign Reading Time Taken Comments Blood Pressure 115/61 05/13/2023 8:00 AM EDT Pulse 80 05/13/2023 8:00 AM EDT Temperature 35.9 C (96.6 F) 05/13/2023 8:00 AM ED T Respiratory Rate 16 05/13/2023 8:00 AM EDT Oxygen Saturation 100% 05/13/2023 8:00 AM EDT Inhaled Oxygen Concentration - - Weight 53 kg (116 lb 14.4 oz) 05/13/2023 5:41 AM EDT Height 166.4 cm (5' 5.5") 05/08/2023 6:08 PM EDT Body Mass Index 19.16 05/08/2023 6:08 PM EDT documented in this [...] No 05/08/2023 documented as of this encounter Discharge Summaries * Shravan Hudson MD - 05/13/2023 10:36 AM EDT DISCHARGE SUMMARY [id number] [address] Name: Linsey Estrella Sex: female Age: [age] year old Admission Date: 05/08/2023 Discharge Date: 05/13/2023 DISCHARGE DIAGNOSES: Active Hospital Problems Diagnosis *Principal Diagnosis - 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 Other Significant Diagnoses: Past Medical History: Diagnosis Date Inguinal hernia 02/18/1999 Surgical repair Kidney stone on left side 02/19/1996 Leukemia (HCC) Large granular lymphocytic leukemia Neutropenia (HCC) PONV (postoperative nausea and vomiting) CONDITION ON DISCHARGE: Stable Cognition: Normal DISPOSITION ON DISCHARGE: Home FOLLOW-UP: Future Appointments Appt Date/Time Provider Department 06/04/2023 9:30 AM Saul Vargas MD Urology, [place] 06/10/2023 10:30 AM Chris Royal MD Urology, [facility] 06/24/2023 10:40 AM Demetrius Sherman MD Nephrology, [facility] 07/25/2023 11:15 AM Aguilar Lizarraga MD Hematology/Oncology [facility] 11/12/2023 9:20 AM Nichole Lizarraga MD General Internal Medicine [facility] Outpatient testing already scheduled: NA Outpatient testing that needs to be arranged: NA Inpatient test results pending: NA MEDICATIONS ON DISCHARGE: MEDICATION UPDATES AT DISCHARGE START taking these medications INSTRUCTIONS Enoxaparin 40 MG/0.4ML injection Commonly known as: Lovenox Inject 40 mg under the skin in the morning for 23 days. oxyCODONE 5 MG immediate release tablet Commonly known as: Oxy IR Take 1 Tablet by mouth every 4 hours as needed for Pain, Severe. Polyethylene Glycol 3350 packet Commonly known as: Miralax Take 1 Packet by mouth at bedtime. senna Tablet Commonly known as: Senokot Take 2 Tablets by mouth in the morning. CONTINUE taking these medications INSTRUCTIONS Azelastine 137 MCG/SPRAY Soln Notes to patient: Used to help relieve symptoms (eg, stuffy or runny nose, itching, sneezing) of seasonal (short-term) or perennial (year-round) allergic rhinitis (hay fever), vasomotor rhinitis, or other upper respiratory allergies ADMINISTER 1 SPRAY INTO NOSTRIL 2 TIMES A DAY. Calcium Carbonate-Vitamin D 600-400 MG-UNIT per chew tablet Notes to patient: Supplement Take 1 Tablet by mouth in the morning. Econazole Nitrate 1 % cream Commonly known as: Spectazole Notes to patient: used to treat a variety of fungal skin infections Apply 2x daily from ankles down to feet/nails 2x daily for about 1 month until resolved, then 2x weekly to maintain clearance fluticasone 50 MCG/ACT nasal spray Commonly known as: Flonase Notes to patient: Used to ease allergy signs and treat certain nose and sinus problems with nasal polyps Administer 2 Sprays into each nostril daily. Loratadine 10 MG Tablet Commonly known as: Claritin Notes to patient: Used to ease allergy signs and to treat hives Take 1 Tablet by mouth at bedtime. Probiotic Daily Capsule Notes to patient: Used to keep the normal balance of bacteria in the gastrointestinal (GI) tract daily Zarxio 480 MCG/0.8ML Sosy Generic drug: Filgrastim-sndz Notes to patient: used to reduce the risk of infection Administer 480 mcg (1 syringe) 4 days a week throughout chemotherapy. STOP taking these medications Solifenacin Succinate 5 MG Tablet Commonly known as: VESIcare CONTINUE taking these medications but follow up with your Primary Care Physician (PCP). INSTRUCTIONS multivitamin Tabs 1 TABLET DAILY ondansetron 8 MG Tablet Commonly known as: Zofran Take 1 Tablet by mouth every 8 hours as needed for Nausea. prochlorperazine 10 MG Tablet Commonly known as: Compazine Take 1 Tablet by mouth every 6 hours as needed for Nausea. ALLERGIES: Penicillins, Pollen, and Ragweed INSTRUCTIONS: Activity: No lifting, pushing or pulling more than 10 lbs for 6-8 weeks. Diet: Previous diet Code status (this admission): Code Status: Full Code Indwelling devices: None ADMISSION HISTORY & PHYSICAL EXAM (focused): This 73 year old female presented to the clinic last on 04/25/2023, for pre- operative H&P for planned surgery. Patient is tentatively scheduled for hysterectomy, bilateral salpingoophorectomy with cystectomy, ileal conduit by Dr. Saul Vargas on 05/08/2023 secondary to High-risk nonmuscle invasive bladder cancer and left upper urinary tract urothelial carcinoma. 11/2020 - Presented with urge urinary incontinence, [...] high-grade UC with sarcomatoid and squamous differentiation. The patient has a PMHx significant for leukemia, neutropenia followed by Dr. Lizarraga in Oncology. Patient does experience 1 episode of nocturia per night which is not bothersome. BMs are generally 1-2 times daily without straining to defecate. No blood thinners. Preop urine culture negative. 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 Encounter for antineoplastic chemotherapy Z51.11 PAST SURGICAL HISTORY: Past Surgical History Past Surgical History: Procedure Laterality Date CYSTOSCOPY/TREAT MINOR LESION(S) N/A 01/09/2021 CYSTOURETHROSCOPY WITH FULGURATION MINOR BLADDER TUMOR performed by Chris Royal MD at OR [facility] CYSTOSCOPY/TREAT MINOR LESION(S) N/A 06/05/2021 CYSTOURETHROSCOPY WITH FULGURATION MINOR BLADDER TUMOR performed by Chris Royal MD at [facility] CYSTOSCOPY/TREAT SML BLADDER TUMOR N/A 02/04/2023 CYSTOURETHROSCOPY WITH FULGURATION SMALL BLADDER TUMOR [facility] SURGERY PROCEDURE NEC INCISION OF [place], PLANNED Left 02/04/2017 TRACHEOSTOMY PLANNED performed by Nick Singh DO at [facility] INFORMATION 02/04/2017 never had a trach INFORMATION 1989 kidney stone removal LAPARO REMOVE K/URETER Left 02/01/2021 LAPAROSCOPIC NEPHRECTOMY TOTAL URETERECTOMY performed by Chris Royal MD at OR [facility] LARYNGOSCOPY, VOCAL CORD EXCISION/STRIPPING Left 02/04/2017 LARYNGOSCOPY DIRECT STRIPPING VOCAL CORD WITH MICROSCOPE performed by Nick Singh DO at OR [facility] REPAIR INITIAL INGUINAL HERNIA REDUCIBLE AGE 5 OR MORE 02/18/1999 FAMILY HISTORY: Family Status Family Status Relation Status Mo Alive Fa at age 75 Blaise Alive 09/19/1985 MGMA (Not Specified) MGFA (Not Specified) PGMA (Not Specified) PGFA (Not Specified) AUNT (Not Specified) UNCLE (Not Specified) No history (Not Specified) SOCIAL HISTORY: Social History Socioeconomic History Marital status: Spouse name: Not on file Number of children: Not on file Years of education: Not on file Highest education level: Not on file Occupational History Not on file Tobacco Use Smoking status: Never Smokeless tobacco: Never Vaping Use Vaping Use: Never used Substance and Sexual Activity Alcohol use: Yes Alcohol/week: 4.2 standard drinks of alcohol Types: 5 5 oz of wine per [...] file Housing Stability: Not on file Current Medications Current Outpatient Medications Medication Sig Dispense Refill MULTIVITAMINS PO TABS 1 TABLET DAILY PROBIOTIC DAILY PO CAPS daily Calcium Carbonate-Vitamin D 600-400 MG-UNIT Oral Tablet Chewable Take 1 Tablet by mouth in the morning. loratadine (CLARITIN) 10 MG Tablet Take 1 Tablet by mouth at bedtime. 30 Tab 5 fluticasone (FLONASE) 50 MCG/ACT nasal spray Administer 2 Sprays into each nostril daily. 1 Inhaler5 Econazole Nitrate 1 % External Cream (Spectazole) Apply 2x daily from ankles down to feet/nails 2x daily for about 1 month until resolved, then 2x weekly to maintain clearance 170 g 2 Solifenacin Succinate 5 MG Oral Tablet (VESIcare) Take 1 Tablet by mouth in the morning. 90 Tablet 3 Azelastine HCl 137 MCG/SPRAY Nasal Solution ADMINISTER [...] MCG/0.8ML Injection Solution Prefilled Syringe (Zarxio) Administer 480mcg (1 syringe) 4 days a week throughout chemotherapy 12.8 mL 5 No current facility-administered medications for this visit. Allergies Review of patient's allergies indicates: Allergen Reactions Penicillins Edema airway and Rash Last dose age 14 Pollen Ragweed ROS EXAM: CONSTITUTIONAL: No change in weight, No weakness, No fatigue, and No fevers, sweats, or chills CARDIOVASCULAR: No chest pain, No shortness of breath, No dyspnea on exertion, No orthopnea, No paroxysmal nocturnal dyspnea, No edema, No palpitations, and No syncope PULMONARY: No cough, sputum, or hemoptysis, No wheezing, No rales, No shortness of breath, and No recent change in breathing GASTROINTESTINAL: No abdominal pain, No change in bowel habits, No significant heartburn, No significant change in appetite, No nausea, vomiting, diarrhea, or constipation, No hematemesis, No blood in stools or black tarry stools, No abdominal bloating or early satiety, and No dysphagia : As above NEUROLOGIC: Normal balance, No headaches, No seizures, No tingling, and No weakness All other systems normal/negative PHYSICAL EXAMINATION: Most Recent Vital Signs: BP: 110 mmHg/66 mmHg (05/08/23 0900) Pulse: 79 (05/08/23 0900) Temp: 36.5 C (05/08/23 0900) Temp Summary: Temp Min: 36.5 C (97.7 F) Max: 36.5 C (97.7 F) SpO2: 100 % (05/08/23899) O2 flow rate: Supplemental O2 Delivery: General: alert, awake, oriented to person and place and situation, no distress, thin Skin: Warm, dry, w/o rash or diaphoresis HEAD: Normocephalic, atraumatic Heart: regular rate, regular rhythm, no murmur Chest: clear to auscultation bilaterally Abdomen: soft, non-tender, non-distended, normal bowel sounds Back: no costo-vertebral angle tenderness Extremities: no edema HOSPITAL COURSE (focused): Linsey Estrella is a 73 year old female who was admitted on 05/08/2023 with bladder cancer. she was taken to OR on 05/08/23 for below stated procedure. she recovered well after the surgery. She ambulated on postop day 0. She was advanced to clear liquid diet on postop day 1 and her pain was well controlled. She continued to do well and was advanced to regular diet on postop day 2. DVT prophylaxis was transitioned from heparin to Lovenox on postop day 2 as well. she remained afebrile and hemodynamically stable throughout the hospital stay. Patient was tolerating a diet, having adequate pain control and ambulating without assistance. Drain creatinine was tested. Surgical drain were removed on POD5. she was discharged home on POD5 in stable condition. She received ostomy teaching as well as Lovenox injection teaching while she was hospitalized. Operations & Procedures: 1. Radical cystectomy, hysterectomy, bilateral salpinoophorectomy, anterior vaginectomy (anterior pelvic exenteration) 2. Ileal conduit urinary diversion 3. Bilateral standard pelvic lymph node dissection Complications: None significant SIGNIFICANT RESULTS: Vital Signs (last recorded): Most Recent Systolic BP: 115 mmHg (05/13/23 0800) Most Recent Diastolic BP: 61 mmHg (03/25/24 0800) Pulse: 80 (05/13/23799) Resp: 16 (05/13/23799) Most Recent Temperature: 35.89 C (05/13/23799) Weight: 53 kg (116 lb 14.4 oz) (05/13/23 0541) SpO2: 100 % (05/13/23799) O2 flow rate: 0 L/MIN (05/13/23844) Labs: CHEMISTRY: BUN, Creatinine, GFR Estimated, Sodium, Potassium, Chloride, Carbon Dioxide, Glucose, Calcium (see below for most recent value): Lab Results Component Value Date/Time BUN 25 (H) 05/13/2023 06:27 AM BUN 16 10/27/2019 10:00 AM CREAT 1.0 05/13/2023 06:27 AM CREAT 0.9 10/27/2019 10:00 AM GFRESTIMATED >60.0 10/27/2019 10:00 AM NA 137 05/13/2023 06:27 AM NA 143 10/27/2019 10:00 AM POTASSIUM 4.3 05/13/2023 06:27 AM POTASSIUM 4.2 10/27/2019 10:00 AM CL 106 05/13/2023 06:27 AM CL 105 10/27/2019 10:00 AM CO2 24 05/13/2023 06:27 AM CO2 28 10/27/2019 10:00 AM CA 8.2 (L) 05/13/2023 06:27 AM CA 9.3 10/27/2019 10:00 AM COAGS: PT, INR (see below for three most recent values): Lab Results Component Value Date/Time INR 0.95 05/12/2020 02:16 PM BLOOD COUNT: WBC, Hgb, Platelets (see below for most recent value): Lab Results Component Value Date/Time WBC 3.98 (L) 05/13/2023 06:27 AM WBC 4.03 11/13/2019 11:29 AM HGB 9.6 (L) 05/13/2023 06:27 AM HGB 13.6 12/08/2021 12:00 AM HGB 13.6 12/01/2021 12:00 AM PLT 190 05/13/2023 06:27 AM PLT 313 11/13/2019 11:29 AM HEMOGLOBIN: Hgb (see below for last three most recent values): Lab Results Component Value Date/Time HGB 9.6 (L) 05/13/2023 06:27 AM HGB 9.9 (L) 05/12/2023 04:54 AM HGB 9.6 (L) 05/11/2023 05:00 AM HGB 13.6 12/08/2021 12:00 AM HGB 13.6 12/01/2021 12:00 AM HGB 13.6 04/10/2021 12:00 AM HGB 13.3 03/20/2021 12:00 AM HGB 14.1 11/13/2019 11:29 AM HGB 13.8 02/09/2019 01:17 PM HGB 14.3 01/16/2019 11:00 AM Imaging (focused): XR ABDOMEN 1 VIEW Final Result EXAM XR ABDOMEN 1 VIEW-05/11/2023 2:43 pm HISTORY high volume emesis, POD3 from anterior extenteration COMPARISON CT 01/16/2023, radiograph 03/10/2012 TECHNIQUE AP views of the abdomen. FINDINGS Support apparatus:Right ureteral stent. Surgical clips. Pelvic surgical drain. Mildly gas dilated loops of small bowel. Probable few gas distended loops of large bowel. Degenerative osseous changes. Lung bases are clear. IMPRESSION IMPRESSION Likely ileus versus early small bowel obstruction. Added to radiology results pathway communication system at 3:59 pm on 05/11/2023. XR CHEST 1 VIEW Final Result EXAM XR CHEST 1 VIEW - 05/11/2023 2:43 pm HISTORY high volume emesis, POD3 from anterior exenteration COMPARISON CT 02/26/2023, radiograph 01/21/2023 TECHNIQUE AP view of the chest. FINDINGS Support apparatus: Partially visualized right ureteral stent. Similar right upper lobe scarring. No specific consolidation, pleural effusion or pneumothorax. Cardiomediastinal silhouette and pulmonary vasculature likely within normal limits. IMPRESSION IMPRESSION No acute cardiopulmonary finding. CONSULTS ORDERED: CARE MANAGEMENT CONSULT IP WOUND/OSTOMY CONSULT IP HEMATOLOGY CONSULT IP ANTI-COAGULATION CONSULT IP REFERRING PHYSICIAN: Ref: NICHOLE LIZARRAGA[[id number]] [address] [place] [address] (office) [phone] (fax) PRIMARY CARE PROVIDER: PCP: NICHOLE LIZARRAGA [address] [place] [address] [phone] Note: To contact a physician responsible for this patients hospital care, please call [address] [phone]. Associated attestation - Saul Vargas MD - 05/13/2023 2:05 PM EDT I saw and evaluated the patient today. I have reviewed the trainee note and agree. documented in this encounter Discharge Instructions * Discharge Instr - AVS* Shravan Hudson MD - 05/10/2023 11:59 AM EDT Discharge Date: 05/13/[address] Vargas of the Department of Urology at [phone] during business hours for any questions or test results. For after hours emergencies call [phone] and have the doctor information systems supervisor paged. The information below provides you with [...] summary of your inpatient care: You were treated for bladder cancer Your doctors during this hospitalization included: Dr. Vargas (Urology) Inpatient test results pending: Surgical specimen pathology Operations & Procedures: Open anterior exenteration, ileal conduit urinary diversion Complications: None significant Advance Directive Documented: Advance Directive Does the Patient have an Advance Directive? No Diet: Resume normal diet Activity: No lifting, pushing or pulling more than 10 lbs for 2 weeks. No heavy lifting of more than 40 lbs for 6 weeks. Driving: Don't drive until you are no longer taking narcotics and can walk normally and firmly apply the brake without pain. See your primary care physician (Nichole Lizarraga MD) as needed. Special Instructions: Call the urology office at [phone] if you have any questions or concerns or if you experience any of the following: - Elevated temperatures of 101 F or greater - Persistent nausea and vomiting - Pus-like drainage or redness around the incision or wound - Pain that is not controlled with prescribed medications - Anticoagulation: You are being discharged with Lovenox You may take jbfe-fdx-nlebold Tylenol and Motrin in an alternating fashion, as needed for pain. If pain is not adequately controlled with bled-zgl-liucekd medications, you may use oxycodone as needed Take a stool softener like docusate if taking narcotic pain medication like oxycodone. Hold stool softeners for loose stools. If you have any left over or excess narcotic pain medications (tramadol, oxycodone, etc) that you are no longer taking, bring these to any local pharmacy for proper disposal. You should be up and walking at least 100 yards three times a day when at home. After surgery this helps to prevent the formation of blood clots in your legs that can possibly go to your lungs or heart. Follow up: A follow up appointment has been made for you with Dr. Royal/Dr. Vargas on 06/11/2023. You will be called with this appointment. If you are not contacted about this appointment within 1 week you should call [phone] to confirm the date. Future Appointments Appt Date/Time Provider Department 06/04/2023 9:30 AM Saul Vargas MD Urology, [place] 06/10/2023 10:30 AM Chris Royal MD Urology, [facility] 06/24/2023 10:40 AM Demetrius Sherman MD Nephrology, [facility] 07/25/2023 11:15 AM Aguilar Lizarraga MD Hematology/Oncology [facility] 11/12/2023 9:20 AM Nichole Lizarraga MD General Internal Medicine [facility] documented in this encounter Progress Notes * Adriel Hunt RN - 05/13/2023 11:35 AM EDT Wound / Ostomy Nurse Progress Note Patient seen by wound ostomy nurse for ostomy care and education. Patient OOB in bathroom, ambulated back to bed independently. Reports confidence in emptying pouch and connecting/disconnected to night drainage bag. Hesitant tochanging pouch independently. Will plan to have home health nursing after discharge. Pouching intact to right abdomen urostomy. Stoma pink with x1 stent in place, mucous and blood clotnoted at stoma. Reviewed with patient and activities, bathing, clothing, diet, and basic pouch care. Discussed ordering supplies after discharge. Written instructions for pouch change, mail order DME companies, and additional supplies at bedside. Supplies planned to use: 2 02/21" cut to fit wafer #[id number] 2 02/21" urostomy drainable pouch #[id number] Night drainage set #[id number] Encouraged patient to call with pouching difficulty after discharge. [phone] * Vicki Retana MD - 05/10/2023 5:04 PM EDT PROGRESS NOTE - Hematology [facility]-[address] [address] Name: Linsey Estrella Location: [facility] G205/B Date: 05/10/2023 Time: 5:05 PM SUBJECTIVE: Feels well this morning. Was up and walking yesterday. Was joined by at bedside. Still no flatulence or BM. Denies fevers chills and sweats Denies signs of bleeding (hematochezia, melena, mucosal bleeding). Still having pink out from drains. Denies pain. Denies [place] and changes in vision. Denies any new rashes or bruising REVIEW OF SYSTEMS: All systems were reviewed, all pertinent findings were documented above otherwise negative. OBJECTIVE: Most Recent Vital Signs: BP: 120 mmHg/60 mmHg (05/10/23 1530) Pulse: 72 (05/10/23 1530) Temp: 37 C (05/10/23 1530) Temp Summary: Temp Min: 36.5 C (97.7 F) Max: 37.2 C (99 F) SpO2: 99 % (05/10/23 1136) O2 flow rate: 0 L/MIN (05/09/23 0820) Supplemental O2 Delivery: Room Air, None (05/10/23 1530) Vital Signs Last 24 Hours: Systolic BP: Most Recent Systolic BP Av.2 mmHg Min: 107 mmHg Max: 120 mmHg Temperature: Most Recent Temperature Av C Min: 36.5 C Max: 37.22 C Pulse: Pulse Av.7 Min: 67 Max: 77 Respirations: Resp Av Min: 16 Max: 20 SpO2: SpO2 Av.6 % Min: 98 % Max: 100 % Intake/Output: Intake/Output Summary (Last 24 hours) at 05/10/2023 1705 Last data filed at 05/10/2023 1622 Gross per 24 hour Intake 2428.52 ml Output 2225 ml Net 203.52 ml Constitutional: no acute distress HEENT: normal: normocephalic, atraumatic; no masses, tenderness, or adenopathy CV: normal rate and rhythm, no murmur, gallops or rub Chest: normal respiratory effort, lungs clear to auscultation and percussion Abdomen: soft, normal bowel sounds, dressing in place, scar pink and without bleeding or erythema Extremities Edema: no edema Neuro: alert, oriented to person, place, and time, normal mental status exam Skin: warm, dry, intact LABS: Labs reviewed as indicated below: Recent Results (from the past 24 hour(s)) BASIC METABOLIC PANEL Collection Time: 05/10/23 5:35 AM Result Value Ref Range BUN 14 6 - 20 mg/dL Creatinine 1.0 0.5 - 1.0 mg/dL Estimated Glomerular Filtration Rate 62 >=60 mL/min Sodium 140 135 - 146 mmol/L Potassium 4.2 3.5 - 5.1 mmol/L Chloride 110 (H) 98 - 107 mmol/L CO2 22 22 - 32 mmol/L Anion Gap 8 7 - 15 mmol/L Glucose 99 70 - 120 mg/dL Calcium 7.9 (L) 8.4 - 10.2 mg/dL CBC Collection Time: 05/10/23 5:35 AM Result Value Ref Range WBC 3.75 (L) 4.00 - 10.80 K/uL RBC 3.05 3.85 - 5.15 M/uL HGB 9.2 (L) 12.0 - 15.3 g/dL HCT 28.4 (L) 36.0 - 45.2 % MCV 93.1 81.5 - 97.5 fL MCH 30.2 27.0 - 34.0 pg MCHC 32.4 32.0 - 36.0 g/dL RDW 15.8 11.5 - 15.5 % PLT 128 (L) 140 - 400 K/uL MPV 12.6 6.6 - 11.1 fL nRBCs 0 <=0 /100 WBCs DIFFERENTIAL, TECHNOLOGIST REVIEW Collection Time: 05/10/23 5:35 AM Result Value Ref Range WBC 3.75 (L) 4.00 - 10.80 K/uL Neutrophils % 28.0 (L) 40.0 - 75.0 % Lymphocytes % 51.0 (H) 18.0 - 42.0 % Monocytes % 17.0 (H) 1.0 - 11.0 % Eosinophils % 1.0 0.0 - 6.0 % Basophils % 3.0 (H) 0.0 - 2.0 % Absolute Neutrophils 1.05 (L) 1.80 - 7.70 K/uL Absolute Lymphocytes 1.91 1.00 - 4.80 K/uL Absolute Monocytes 0.64 0.00 - 1.10 K/uL Absolute Eosinophils 0.04 0.00 - 0.70 K/uL Absolute Basophils 0.11 0.00 - 0.20 K/uL CT CHEST WO CONTRAST Narrative: EXAM EXAM: CT CHEST WO CONTRAST DATE and TIME: 02/26/2023 1:56 pm HISTORY CLINICAL INFORMATION: bladder cancer TECHNIQUE Oral Contrast: Oral contrast was not administered. IV Contrast: No IV contrast used COMPARISON 08/31/2022 FINDINGS THYROID:Within normal limits. THORACIC AORTA: No aneurysm. CORONARY ARTERIES: Mild or minimal calcification. MAIN PULMONARY ARTERY: Normal sized. HEART: No pericardial effusion. ESOPHAGUS: Within normal limits. MEDIASTINUM AND HAZEL: Within normal limits. CHEST SOFT TISSUES: Within normal limits. CHEST WALL: Within normal limits. LARGE AIRWAYS: Within normal limits LUNGS: Stable curvilinear thickening in the right upper lobe. UPPER ABDOMEN:Left nephrectomy Impression: IMPRESSION stable lung findings IMPRESSION/PLAN: 73 yo F w/ severe chronic neutropenia, Large granular lymphocytic leukemia, CKD and bladder cancer now s/p planned open anterior pelvic exenteration, bilateral pelvic lymph node dissection, 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 LGL Leukemia Chronic neutropenia (on Neupogen chronically) -Continue with Neupogen 480 microgram subq daily while inpatient. - On discharge to return back to home regimen (4 times a week). 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 -Care per primary team * Adriel Hunt RN - 05/10/2023 2:39 PM EDT Wound / Ostomy Nurse Progress Note Patient seen by wound ostomy nurse for ostomy care and education. Patient awake resting in bed. Report eating regular diet for breakfast. Patient's present at bedside. Demonstrated pouch change. Stoma pink, round, slightly raised with x1 stent noted. Peristomal skin intact without erythema. Repouched with 2 1/4" cut to fit wafer and pouch. Patient able to connect and disconnect to night drainage bag. Reviewed with patient and activities, bathing, clothing, diet, and basic pouch care. Discussed ordering supplies after discharge. Written instructions for pouch change, mail order DME companies, and additional supplies at bedside. Supplies planned to use: 2 1/4" cut to fit wafer #[id number] 2 1/4" urostomy drainable pouch #[id number] Night drainage set #[id number] Will continue to follow. Call with pouching concerns. Encouraged patient to call with pouching difficulty after discharge. [phone] * Saul Vargas MD - 05/08/2023 9:26 AM EDT Urology I met with Linsey Estrella in pre-op holding prior to the procedure today. The patient's questions were answered. We reviewed the consent for cystectomy, hysterectomy, BSO, pelvic lymph node dissection and ileal conduit urinary diversion. We discussed the risks of bleeding, infection, sepsis, urine leak, bowel leak and bowel obstruction, rectal injury requiring temporary or permanent colostomy, ureteral strictures, stoma stenosis or dehiscence, vaginal dehiscence, lymphatic leak and lymphoceles, and the need for repeat procedures or re-operation. I also discussed the possibility that thismay not cure the disease and further therapy will be required. The patient agreed to proceed with the operation. documented in this encounter H&P Notes * Yesika Mahajan MD - 05/08/2023 9:26 AM EDT HISTORY AND PHYSICAL EXAMINATION - Urology Name: Linsey Estrella Date: 05/08/2023 Time: 9:26 AM Location: OR [facility]/OR PCP: Nichole Lizarraga MD [address] [place] [address] [place] [id number] C/c muscle invasive bladder cancer HPI: This 73 year old female presented to the clinic last on 04/25/2023, for pre- operative H&P for planned surgery. Patient is tentatively scheduled for hysterectomy, bilateral salpingoophorectomy with cystectomy, ileal conduit by Dr. Saul Vargas on 05/08/2023 secondary to High-risk nonmuscle invasive bladder cancer and left upper urinary tract urothelial carcinoma. 11/2020 - Presented with urge urinary incontinence, [...] high-grade UC with sarcomatoid and squamous differentiation. The patient has a PMHx significant for leukemia, neutropenia followed by Dr. Lizarraga in Oncology. Patient does experience 1 episode of nocturia per night which is not bothersome. BMs are generally 1-2 times daily without straining to defecate. No blood thinners. Preop urine culture negative. 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 Encounter for antineoplastic chemotherapy Z51.11 PAST SURGICAL HISTORY: Past Surgical History Past Surgical History: Procedure Laterality Date CYSTOSCOPY/TREAT MINOR LESION(S) N/A 01/09/2021 CYSTOURETHROSCOPY WITH FULGURATION MINOR BLADDER TUMOR performed by Chris Royal MD at OR [facility] CYSTOSCOPY/TREAT MINOR LESION(S) N/A 06/05/2021 CYSTOURETHROSCOPY WITH FULGURATION MINOR BLADDER TUMOR performed by Chris Royal MD at OR [facility] CYSTOSCOPY/TREAT SML BLADDER TUMOR N/A 02/04/2023 CYSTOURETHROSCOPY WITH FULGURATION SMALL BLADDER TUMOR [facility] [place] SURGERY PROCEDURE NEC INCISION OF WINDPIPE, PLANNED Left 02/04/2017 TRACHEOSTOMY PLANNED performed by Nick Singh DO at OR [facility] INFORMATION 02/04/2017 never had a trach INFORMATION 1989 kidney stone removal LAPARO REMOVE K/URETER Left 02/01/2021 LAPAROSCOPIC NEPHRECTOMY TOTAL URETERECTOMY performed by Chris Royal MD at OR [facility] LARYNGOSCOPY, VOCAL CORD EXCISION/STRIPPING Left 02/04/2017 LARYNGOSCOPY DIRECT STRIPPING VOCAL CORD WITH MICROSCOPE performed by Nick Singh DO at OR [facility] REPAIR INITIAL INGUINAL HERNIA REDUCIBLE AGE 5 OR MORE 02/18/1999 FAMILY HISTORY: Family Status Family Status Relation Status Mo Alive Fa at age 75 Blaise Alive 09/19/1985 MGMA (Not Specified) MGFA (Not Specified) PGMA (Not Specified) PGFA (Not Specified) AUNT (Not Specified) UNCLE (Not Specified) No history (Not Specified) SOCIAL HISTORY: Social History Socioeconomic History Marital status: Spouse name: Not on file Number of children: Not on file Years of education: Not on file Highest education level: Not on file Occupational History Not on file Tobacco Use Smoking status: Never Smokeless tobacco: Never Vaping Use Vaping Use: Never used Substance and Sexual Activity Alcohol use: Yes Alcohol/week: 4.2 standard drinks of alcohol Types: 5 5 oz of wine per [...] file Housing Stability: Not on file Current Medications Current Outpatient Medications Medication Sig Dispense Refill MULTIVITAMINS PO TABS 1 TABLET DAILY PROBIOTIC DAILY PO CAPS daily Calcium Carbonate-Vitamin D 600-400 MG-UNIT Oral Tablet Chewable Take 1 Tablet by mouth in the morning. loratadine (CLARITIN) 10 MG Tablet Take 1 Tablet by mouth at bedtime. 30 Tab 5 fluticasone (FLONASE) 50 MCG/ACT nasal spray Administer 2 Sprays into each nostril daily. 1 Inhaler5 Econazole Nitrate 1 % External Cream (Spectazole) Apply 2x daily from ankles down to feet/nails 2x daily for about 1 month until resolved, then 2x weekly to maintain clearance 170 g 2 Solifenacin Succinate 5 MG Oral Tablet (VESIcare) Take 1 Tablet by mouth in the morning. 90 Tablet 3 Azelastine HCl 137 MCG/SPRAY Nasal Solution ADMINISTER [...] MCG/0.8ML Injection Solution Prefilled Syringe (Zarxio) Administer 480mcg (1 syringe) 4 days a week throughout chemotherapy 12.8 mL 5 No current facility-administered medications for this visit. Allergies Review of patient's allergies indicates: Allergen Reactions Penicillins Edema airway and Rash Last dose age 14 Pollen Ragweed ROS EXAM: CONSTITUTIONAL: No change in weight, No weakness, No fatigue, and No fevers, sweats, or chills CARDIOVASCULAR: No chest pain, No shortness of breath, No dyspnea on exertion, No orthopnea, No paroxysmal nocturnal dyspnea, No edema, No palpitations, and No syncope PULMONARY: No cough, sputum, or hemoptysis, No wheezing, No rales, No shortness of breath, and No recent change in breathing GASTROINTESTINAL: No abdominal pain, No change in bowel habits, No significant heartburn, No significant change in appetite, No nausea, vomiting, diarrhea, or constipation, No hematemesis, No blood in stools or black tarry stools, No abdominal bloating or early satiety, and No dysphagia : As above NEUROLOGIC: Normal balance, No headaches, No seizures, No tingling, and No weakness All other systems normal/negative PHYSICAL EXAMINATION: Most Recent Vital Signs: BP: 110 mmHg/66 mmHg (05/08/23899) Pulse: 79 (05/08/23899) Temp: 36.5 C (05/08/23899) Temp Summary: Temp Min: 36.5 C (97.7 F) Max: 36.5 C (97.7 F) SpO2: 100 % (05/08/23899) O2 flow rate: Supplemental O2 Delivery: General: alert, awake, oriented to person and place and situation, no distress, thin Skin: Warm, dry, w/o rash or diaphoresis HEAD: Normocephalic, atraumatic Heart: regular rate, regular rhythm, no murmur Chest: clear to auscultation bilaterally Abdomen: soft, non-tender, non-distended, normal bowel sounds Back: no costo-vertebral angle tenderness Extremities: no edema Impression: 1. 73 year old female with [id number] high-grade urothelial carcinoma of the bladder with sarcomatoid and squamous differentiation. Plan: - OR for hysterectomy, bilateral salpingoophorectomy with cystectomy, ileal conduit by Dr. Saul Vargas on 05/08/2023 - Prepare 2uPRBC, heparin on induction - Cefoxitin 2g - Entereg 12mg Yesika Mahajan MD 05/08/2023 9:26 AM documented in this encounter Consult Notes * Yao Ureña, [facility] - 05/10/2023 1:48 PM EDTAssociated Order(s): ANTI- COAGULATION CONSULT IP PHARMACY MEDICATION TEACHING CONSULT ENOXAPARIN [address] [address] Name: Linsey Estrella Location: [facility] G205/B Date: 05/10/2023 Time: 1:46 PM Requesting Service: urology Reason for Enoxaparin Consult: Venous Thromboembolism Prophylaxis (VTE) Patient Active Problem List Diagnosis Code Neutropenia [...] Chronic kidney disease, stage 3a (HCC) N18.31 Family member(s) present: Patient agreed to allow visitors to attend teaching, if present. Teaching points covered with patient and/or family: Route, Dosage Form and Schedule (Including importance of taking medication as instructed),, Medication Intended Use/Action, Injection technique,, Precautions to be Observed while using this Medication,, Commonly Encountered Adverse Effects (Including risk of bleeding and potential signs and symptoms),, Methods for Self-monitoring,, Laboratory Monitoring (Including compliance with INR monitoring),, Potential Drug Interactions (Including medications that potentially affect bleeding, alcohol and [id number] medications such as NSAIDs),, Therapeutic Contraindications,, Designated Handout(s) Provided,, Follow-up Monitoring (Including review of plans for post-discharge monitoring and follow-up),, Prescription Refill Information,, and Action for a Missed Dose, Written documentation regarding all of the teaching points was provided to the patient and/or family members present. Patient accepted patient education handout (included in AVS). Assessment of teaching effectiveness: Pt/ already inject filgrastim at home 4x per week w/o complications. Pt understood teaching and s/s of VTE as well as bleeding to self monitor. Patient has expressed potential cost/home health concerns and Care Management has been made aware: No Plan if patient encounters questions later: [facility] Length of teaching: Brief (less than 15 minutes) Teaching completed according to pharmacy teaching standard 508 * Adriel Hunt RN - 05/09/2023 3:47 PM EDTAssociated Order(s): WOUND/OSTOMY CONSULT IP Wound / Ostomy Nurse Consult Note Patient seen by wound ostomy nurse for ostomy care and education. Patient status post open anterior pelvic exenteration, bilateral pelvic lymph node dissection, ileal conduit urinary diversion on 05/08/2023 for nonmuscle invasive bladder cancer and left upper urinary tract urothelial carcinoma. Introduce self and role of the ostomy nurse. Educated patient on pouching procedure and supplies needed. Able to manipulate pouching supplies. Educated on activities, bathing, clothing, diet, and basic pouch care. Pouching intact to right abdomen urostomy connected to night drainage bag. Stoma visualized through pouch. Stoma pale pink, round with x1 stent in place, clots noted. Blood tinged urine in pouch and drainage bag. Patient lives with who is helpful with medical needs. Will plan for pouch change with tomorrow. Written instructions for pouch change, mail order DME companies and additional supplies at bedside. Supplies planned to use: unsure at this time Will continue to follow. Call with pouching concerns. * Vicki Retana MD - 05/09/2023 9:30 AM EDTAssociated Order(s): HEMATOLOGY CONSULT IP CONSULT ATTENDING NOTE - Hematology [facility]-[address] [address] Name: Linsey Estrella [address]: 05/09/2023 Time: 9:31 AM REQUESTING SERVICE: Urology REASON FOR CONSULT: "patient with Large granular lymphocytic leukemia s/p cystectomy. assistance with neupogen management and care regarding leukemia " PAST HISTORY: Past Medical History: Past Medical History: Diagnosis Date Inguinal hernia 02/18/1999 Surgical repair Kidney stone on left side 02/19/1996 Leukemia (HCC) Large granular lymphocytic leukemia Neutropenia (HCC) PONV (postoperative nausea and vomiting) Past Surgical History: Past Surgical History: Procedure Laterality Date CYSTOSCOPY/TREAT MINOR LESION(S) N/A 01/09/2021 CYSTOURETHROSCOPY WITH FULGURATION MINOR BLADDER TUMOR performed by Chris Royal MD at [facility] CYSTOSCOPY/TREAT MINOR LESION(S) N/A 06/05/2021 CYSTOURETHROSCOPY WITH FULGURATION MINOR BLADDER TUMOR performed by Chris Royal MD at [facility] CYSTOSCOPY/TREAT SML BLADDER TUMOR N/A 02/04/2023 CYSTOURETHROSCOPY WITH FULGURATION SMALL BLADDER TUMOR [facility] [place] PROCEDURE NEC INCISION OF WINDPIPE, PLANNED Left 02/04/2017 TRACHEOSTOMY PLANNED performed by Nick Singh DO at [facility] INFORMATION 02/04/2017 never had a trach INFORMATION 1989 kidney stone removal LAPARO REMOVE K/URETER Left 02/01/2021 LAPAROSCOPIC NEPHRECTOMY TOTAL URETERECTOMY performed by Chris Royal MD at OR [facility] LARYNGOSCOPY, VOCAL CORD EXCISION/STRIPPING Left 02/04/2017 LARYNGOSCOPY DIRECT STRIPPING VOCAL CORD WITH MICROSCOPE performed by Nick Singh DO at OR [facility] REPAIR INITIAL INGUINAL HERNIA REDUCIBLE AGE 5 OR MORE 02/18/1999 Social History: Social History Tobacco Use Smoking status: Never Passive exposure: Never Smokeless tobacco: Never Vaping Use Vaping Use: Never used Substance Use Topics Alcohol use: Yes Alcohol/week: 2.0 standard drinks of alcohol Types: 2 12 oz of beer per week Drug use: No Family History: Family History Problem Relation Age of Onset Heart Disorder Mother Dyslipidemia Hypertension Mother Liver cancer Father Pancreatic cancer Father Diabetes Grandmother (Maternal) Stroke Grandmother (Maternal) Heart attack Grandfather (Maternal) Stroke Grandmother (Paternal) Cancer Grandfather (Paternal) 90 Unknown Diabetes Aunt (Unspecified) Diabetes Uncle (Unspecified) Breast Cancer No significant family history Current Hospital Medications: Note that completed medications (per the MAR) continue to display for 24 hours. Ordered medicationsto be given in the future also display. Current Facility-Administered Medications Medication Dose Route Frequency Provider Alvimopan (Entereg) cap 12 mg 12 mg Oral BID(AM/PM) Shravan Hudson MD Acetaminophen (Tylenol) tab 975 mg 975 mg Oral Q8H Shravan Hudson MD calcium CARBonate (Tums E-X) tab CHEW 750 mg 750 mg Oral Q6H PRN Shravan Hudson MD cefOXitin in dextrose (Mefoxin) ivpb 2 g 2 g IV Piggyback Q6H Shravan Hudson MD Famotidine (Pepcid) tab 20 mg 20 mg Oral Daily 1900 Shravan Hudson MD fluticasone (Flonase) nasal inhaler 2 Egnar 2 Egnar Each Nostril Daily(AM) Shravan Hudson MD hEParin inj 5,000 Units 5,000 Units Subcutaneous Q8H Shravan Hudson MD IMPACT AR liquid 250 mL Oral BID (AM/PM meals) Shravan Hudson MD Loratadine (Claritin) tab 10 mg 10 mg Oral HS Shravan Hudson MD melatonin tab 1 mg 1 mg Oral HS PRN Shravan Hudson MD Menthol (Hudson) cough drop 1 Lozenge 1 Lozenge Oral Q2H PRN Shravan Hudson MD NSS infusion Intravenous Continuous Schranz, [place], DO ondansetron ODT (Zofran) tab 4 mg 4 mg On Tongue Q6H PRN Shravan Hudson MD Or ondansetron (Zofran) inj 4 mg 4 mg IV Push Q6H PRN Shravan Hudson MD oxyCODONE (Oxy IR) tab 10 mg 10 mg Oral Q4H PRN Shravan Hudson MD oxyCODONE (Oxy IR) tab 5 mg 5 mg Oral Q4H PRN Shravan Hudson MD phenol (chlorASEPTIC) spray 3 Egnar 3 Egnar Oral Q4H PRN Shravan Hudson MD Polyethylene Glycol 3350 (Miralax) oral powder 17 g 1 Packet Oral HS Shravan Hudson MD prochlorperazine (Compazine) tab 10 mg 10 mg Oral Q6H PRN Shravan Hudson MD Or prochlorperazine (Compazine) inj 10 mg 10 mg IV Push Q6H PRN Shravan Hudson MD senna (Senokot) 2 Tablet 2 Tablet Oral Daily(AM) Shravan Hudson MD Simethicone (Mylicon) chew tab 80 mg 80 mg Oral Q6H PRN Shravan Hudson MD Allergies: Penicillins, Pollen, and Ragweed HPI: 73 yo F w/ severe chronic neutropenia, Large granular lymphocytic leukemia, CKD and bladder cancer now s/p planned open anterior pelvic exenteration, bilateral pelvic lymph node dissection, 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 On Neupogen 4 days a week [employer] since 2018 (Was on MTX - stopped in 2018) Last underent BM biopsy and aspration on 03/26/23 : Bladder cancer Dx December 2020 She had left nephroureterectomy on 02/01/2021: -invasive urothelial carcinoma high-grade involving the left ureter, involving muscularis propria, lymphovascular invasion noted. -1 lymph node negative for metastatic disease -pathological T2 N0. -urothelial CIS, S/P BCG in 2021. - follow-up biopsy from the bladder --> negative for malignancy ( May 2021) -Bladder Washing --> negative for high-grade urothelial carcinoma (10/2021). -Bladder Washing --> negative for high-grade urothelial carcinoma (August 2022) TURBT of the anterior bladder tumor on 02/04/2023: -high-grade invasive urothelial carcinoma with sarcomatoid features and focal squamous differentiation. -Muscularis propria present and is involved. - Lymphovascular invasion identified. Today: Reports that she is in minimal discomfort post surgery. Is eager to work with PT/OT and move about. REVIEW OF SYSTEMS: Constitutional: (-) fever chills sweats or weight loss Eyes: (-) negative, no amaurosis fugax, pain, blurred vision, or redness ENT: (-) negative: no headaches, vertigo, hearing loss, sinus, ear, or throat problems Cardiovascular: (-) negative: no chest pain, dyspnea, syncope, or palpitations Pulmonary: (-) negative: no cough, wheezing, or shortness of breath at rest Abdominal/GI: (-) nausea and (-) vomiting + changes in bowel habit (constipation) : now unable to void (has drain in place from stoma from bladder) Musculoskeletal: (-) negative: no pain Endocrine: (-) negative: no weight change, heat or cold intolerance, polyuria Hematology/oncology: (-) negative: no fever, night sweats, masses, or swollen nodes Skin: (-) negative: no rash or new or changing moles Neurology: (-) negative: no focal neurologic defect Psychiatry: (-) negative: no depression or anxiety PHYSICAL EXAMINATION: Most Recent Vital Signs: BP: 104 mmHg/53 mmHg (05/09/23723) Pulse: 76 (05/09/23 0357) Temp: 37 C (05/09/23723) Temp Summary: Temp Min: 36 C (96.8 F) Max: 37.5 C (99.5 F) SpO2: 98 % (05/09/23723) O2 flow rate: 0 L/MIN (05/09/23819) Supplemental O2 Delivery: Room Air, None (05/09/23819) Vital Signs Last 24 Hours: Systolic BP: Most Recent Systolic BP Av.1 mmHg Min: 99 mmHg Max: 130 mmHg Temperature: Most Recent Temperature Av.9 C Min: 36 C Max: 37.5 C Pulse: Pulse Av.6 Min: 76 Max: 91 Respirations: Resp Av.8 Min: 10 Max: 20 SpO2: SpO2 Av.5 % Min: 95 % Max: 100 % Constitutional: no acute distress HEENT: normal: normocephalic, atraumatic; no masses, tenderness, or adenopathy Eyes: sclera and conjunctiva normal Neck: supple, normal range of motion CV: normal rate and rhythm, no murmur, gallops or rub Chest: normal respiratory effort, lungs clear to auscultation and percussion Abdomen: soft, normal bowel sounds, (+) dressing in place. Drains in place with serosanguinous fluid Musculoskeletal: (-) negative Extremities: no clubbing, cyanosis, or edema, otherwise grossly normal, warm, and dry Female : unremarkable Skin: warm, dry, intact: Neuro: alert, oriented to person, place, and time, normal mental status exam, gait normal Psych: normal mood and affect, memory normal LABS: Labs reviewed as indicated below: Recent Results (from the past 24 hour(s)) GLUCOSE METER, POINT OF CARE Collection Time: 05/08/23 3:04 PM Result Value Ref Range Glucose Meter 125 (H) 70 - 120 mg/dL CBC Collection Time: 05/08/23 4:24 PM Result Value Ref Range WBC 2.83 (L) 4.00 - 10.80 K/uL RBC 3.17 3.85 - 5.15 M/uL HGB 9.6 (L) 12.0 - 15.3 g/dL HCT 29.3 (L) 36.0 - 45.2 % MCV 92.4 81.5 - 97.5 fL MCH 30.3 27.0 - 34.0 pg MCHC 32.8 32.0 - 36.0 g/dL RDW 15.3 11.5 - 15.5 % PLT 100 (L) 140 - 400 K/uL MPV 11.9 6.6 - 11.1 fL nRBCs 0 <=0 /100 WBCs BASIC METABOLIC PANEL Collection Time: 05/08/23 4:24 PM Result Value Ref Range BUN 17 6 - 20 mg/dL Creatinine 1.1 (H) 0.5 - 1.0 mg/dL Estimated Glomerular Filtration Rate 53 (L) >=60 mL/min Sodium 140 135 - 146 mmol/L Potassium 4.1 3.5 - 5.1 mmol/L Chloride 106 98 - 107 mmol/L CO2 21 (L) 22 - 32 mmol/L Anion Gap 13 7 - 15 mmol/L Glucose 141 (H) 70 - 120 mg/dL Calcium 8.6 8.4 - 10.2 mg/dL SARS-COV-2 (COVID-19), NAAT Collection Time: 05/08/23 4:25 PM Result Value Ref Range SARS-CoV-2 (COVID-19) Result Negative Negative CBC Collection Time: 05/08/23 8:54 PM Result Value Ref Range WBC 2.66 (L) 4.00 - 10.80 K/uL RBC 2.97 3.85 - 5.15 M/uL HGB 8.9 (L) 12.0 - 15.3 g/dL HCT 27.4 (L) 36.0 - 45.2 % MCV 92.3 81.5 - 97.5 fL MCH 30.0 27.0 - 34.0 pg MCHC 32.5 32.0 - 36.0 g/dL RDW 15.4 11.5 - 15.5 % PLT 108 (L) 140 - 400 K/uL MPV 12.2 6.6 - 11.1 fL nRBCs 0 <=0 /100 WBCs DIFFERENTIAL, TECHNOLOGIST REVIEW Collection Time: 05/08/23 8:54 PM Result Value Ref Range WBC 2.66 (L) 4.00 - 10.80 K/uL Neutrophils % 57.0 40.0 - 75.0 % Lymphocytes % 27.0 18.0 - 42.0 % Monocytes % 16.0 (H) 1.0 - 11.0 % Absolute Neutrophils 1.52 (L) 1.80 - 7.70 K/uL Absolute Lymphocytes 0.72 (L) 1.00 - 4.80 K/uL Absolute Monocytes 0.43 0.00 - 1.10 K/uL BASIC METABOLIC PANEL Collection Time: 05/09/23 7:17 AM Result Value Ref Range BUN 15 6 - 20 mg/dL Creatinine 1.2 (H) 0.5 - 1.0 mg/dL Estimated Glomerular Filtration Rate 48 (L) >=60 mL/min Sodium 139 135 - 146 mmol/L Potassium 4.3 3.5 - 5.1 mmol/L Chloride 109 (H) 98 - 107 mmol/L CO2 21 (L) 22 - 32 mmol/L Anion Gap 9 7 - 15 mmol/L Glucose 98 70 - 120 mg/dL Calcium 7.9 (L) 8.4 - 10.2 mg/dL CBC Collection Time: 05/09/23 7:17 AM Result Value Ref Range WBC 2.64 (L) 4.00 - 10.80 K/uL RBC 2.94 3.85 - 5.15 M/uL HGB 8.7 (L) 12.0 - 15.3 g/dL HCT 27.5 (L) 36.0 - 45.2 % MCV 93.5 81.5 - 97.5 fL MCH 29.6 27.0 - 34.0 pg MCHC 31.6 32.0 - 36.0 g/dL RDW 15.5 11.5 - 15.5 % PLT 105 (L) 140 - 400 K/uL MPV 12.1 6.6 - 11.1 fL nRBCs 0 <=0 /100 WBCs DIFFERENTIAL, TECHNOLOGIST REVIEW Collection Time: 05/09/23 7:17 AM Result Value Ref Range WBC 2.64 (L) 4.00 - 10.80 K/uL Neutrophils % 44.0 40.0 - 75.0 % Lymphocytes % 43.0 (H) 18.0 - 42.0 % Monocytes % 9.0 1.0 - 11.0 % Eosinophils % 1.0 0.0 - 6.0 % Basophils % 1.0 0.0 - 2.0 % Metamyelocytes % 2.0 (H) <=0.0 % Absolute Neutrophils 1.16 (L) 1.80 - 7.70 K/uL Absolute Lymphocytes 1.14 1.00 - 4.80 K/uL Absolute Monocytes 0.24 0.00 - 1.10 K/uL Absolute Eosinophils 0.03 0.00 - 0.70 K/uL Absolute Basophils 0.03 0.00 - 0.20 K/uL Absolute Metamyelocytes 0.05 (H) <=0.00 K/uL Giant PLTs Present (A) None Seen CT CHEST WO CONTRAST Narrative: EXAM EXAM: CT CHEST WO CONTRAST DATE and TIME: 02/26/2023 1:56 pm HISTORY CLINICAL INFORMATION: bladder cancer TECHNIQUE Oral Contrast: Oral contrast was not administered. IV Contrast: No IV contrast used COMPARISON 08/31/2022 FINDINGS THYROID:Within normal limits. THORACIC AORTA: No aneurysm. CORONARY ARTERIES: Mild or minimal calcification. MAIN PULMONARY ARTERY: Normal sized. HEART: No pericardial effusion. ESOPHAGUS: Within normal limits. MEDIASTINUM AND HAZEL: Within normal limits. CHEST SOFT TISSUES: Within normal limits. CHEST WALL: Within normal limits. LARGE AIRWAYS: Within normal limits LUNGS: Stable curvilinear thickening in the right upper lobe. UPPER ABDOMEN:Left nephrectomy Impression: IMPRESSION stable lung findings IMPRESSION: 73 yo F w/ severe chronic neutropenia, Large granular lymphocytic leukemia, CKD and bladder cancer now s/p planned open anterior pelvic exenteration, bilateral pelvic lymph node dissection, 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 LGL Leukemia Chronic neutropenia (on Neupogen chronically) -Continue with Neupogen 480 microgram subq daily while inpatient. 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 -Care per primary team Vicki Retana MD Associated attestation - Cornell Bangura MD - 05/09/2023 8:59 PM EDT I saw and evaluated the patient today. I have reviewed the trainee note and agree. Will need to review path has been read as del5q but source documents don't indicate that and show normal Karyotype and FISH , reached out to path to see if they can review * Julianne Cormier RN - 05/09/2023 9:20 AM EDTAssociated Order(s): CARE MANAGEMENT CONSULT IP Chart reviewed. Patient discussed with Nursing. Care Management needs identified at this time. CareManagement will continue to follow. Please see ancillary note for further information. documented in this encounter Nursing Notes * Betty Craig RN - 05/13/2023 11:23 AM EDT VIRTUAL RN [address] [address] Name: Linsey Estrella Location: [facility] G205/B Date: 05/13/2023 Time: 11:23 AM I completed the Discharge Navigator. The patient was in the hospital. I was not in a hospital or clinic location. After connecting through [employer], the patient was identified by name and date of and / or wristband checked. 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 My office door was closed. No one else was in the room with me. Patient acknowledged consent and understanding of privacy and security of the Virtual Nurse visit. I presented the opportunity for the patient or authorized legal truck sales representative to ask any questions regarding the visit today. The patient or authorized legal truck sales representative agreed to participate. Yumiko Khan RN, made aware via [place] text of the patient request for wheelchair for discharge and that her medication has not yet arrived from pharmacy * Almaz Mai LPN - 05/08/2023 7:24 PM EDT Dual Licensed Skin Assessment completed by Almaz Dominguez and Christa Dominguez. The patient is/has a N/A Skin Breakdown (includes non blanchable erythema): Yes - Surgical/Procedural changes only. Abdominal incision with topical adhesive intact. * Yanely Hernandez RN - 05/08/2023 7:10 PM EDT VIRTUAL RN [address] [address] Name: Linsey Estrella Location: [facility] G2 Date: 05/08/2023 Time: 7:11 PM I completed the Admission Navigator. The patient was in the hospital. I was not in a hospital or clinic location. After connecting through [employer], the patient was identified by name and date of and / or wristband checked. 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 I used a headset and other methods to ensure confidentiality for the patient. My office door was closed. No oneelse was in the room with me. Patient acknowledged consent and understanding of privacy and security of the Virtual Nurse visit. I presented the opportunity for the patient or authorized legal truck sales representative to ask any questions regarding the visit today. The patient or authorized legal truck sales representative agreed to participate. Patient is alert & oriented with call palomino in reach. Reminded to ring for assistance. * Sofia Mooney NA - 05/08/2023 6:12 PM EDT Post Anesthesia Care Unit Transport Note [facility] [address] [place] [place] [address] Dept. Linsey Estrella [facility]: 1801 Care of patient transferred to: Christa GONZALES Transported via: Bed Belongings with Patient: YES 2 bags Pulse : 90 Temp : 36.7 BP : 123/58 Respirations : 17 Pulse Ox : 98 O2 : Room Air SCDS: On but not activated/no machine * Jami Fuentes RN - 05/08/2023 5:46 PM EDT PERIOP TO IP HANDOFF COMMUNICATION NOTE [facility]-[address] [address] Name: Linsey Estrella AGE: [id number] year old Location: OR [facility]/OR Date: 05/08/2023 Attention to: GP2 RN Report from: Jami Fuentes RN Patient arriving via: Bed Time of call: 5:47 PM Phone Ext: [phone] Reason for SBAR (Situation, Background, Assessment, Recommendation) handoff: OR Sending to: [id number] Emotional/Personal Events & Special Needs: none Prescriptions in chart: No Code Status: Full Code Safety Concerns: no safety concerns identified Allergies: Penicillins, Pollen, and Ragweed PMH: Past Medical History: Diagnosis Date Inguinal hernia 02/18/1999 Surgical repair Kidney stone on left side 02/19/1996 Leukemia (HCC) Large granular lymphocytic leukemia Neutropenia (HCC) PONV (postoperative nausea and vomiting) PSH: Past Surgical History: Procedure Laterality Date CYSTOSCOPY/TREAT MINOR LESION(S) N/A 01/09/2021 CYSTOURETHROSCOPY WITH FULGURATION MINOR BLADDER TUMOR performed by Chris Royal MD at OR [facility] CYSTOSCOPY/TREAT MINOR LESION(S) N/A 06/05/2021 CYSTOURETHROSCOPY WITH FULGURATION MINOR BLADDER TUMOR performed by Chris Royal MD at [facility] CYSTOSCOPY/TREAT SML BLADDER TUMOR N/A 02/04/2023 CYSTOURETHROSCOPY WITH FULGURATION SMALL BLADDER TUMOR [facility] SUR[facility]ERY PROCEDURE NEC INCISION OF [place], PLANNED Left 02/04/2017 TRACHEOSTOMY PLANNED performed by Nick Singh DO at OR [facility] INFORMATION 02/04/2017 never had a trach INFORMATION 1989 kidney stone removal LAPARO REMOVE K/URETER Left 02/01/2021 LAPAROSCOPIC NEPHRECTOMY TOTAL URETERECTOMY performed by Chris Royal MD at OR [facility] LARYNGOSCOPY, VOCAL CORD EXCISION/STRIPPING Left 02/04/2017 LARYNGOSCOPY DIRECT STRIPPING VOCAL CORD WITH MICROSCOPE performed by Nick Singh DO at [facility] REPAIR INITIAL INGUINAL HERNIA REDUCIBLE AGE 5 OR MORE 02/18/1999 Isolation: Isolation: Procedure: 1. Radical cystectomy, hysterectomy, bilateral salpinoophorectomy, anterior vaginectomy (anterior pelvic exenteration) 2. Ileal conduit urinary diversion 3. Bilateral standard pelvic lymph node dissection Type of Anesthesia: General endotracheal anesthesia IV intake: 1800 mL crystalloid, 500 mL albumin EBL: OR: 600 mL PACU: 0 mL Urine output: OR 475 mL PACU see flowsheets IUBC (Love): Incision location: abdomen Dressing location: open to air with dermabond Time of last skin assessment: post op Pressure injuries or areas of concern: none Lines: Urostomy Ileal conduit RLQ (Active) Stomal Appliance 2 piece 05/08/231550 Stoma Assessment Viable (red, pink, moist) 05/08/231550 Peristomal Skin Clear;Intact 05/08/231550 Urine Description Clear;Yellow 05/08/231550 Output (mL) 250 mL 05/08/23 170 Number of days: 0 Supplemental Airway Natural;NRB (Active) Number of days: 0 Peripheral Line Right Hand 18 Gauge (Active) Status Fluids infusing 05/08/231699 Tubing Changed Yes 05/08/231699 Phlebitis Scale 0 05/08/231699 Infiltration Scale 0 05/08/23 170 Site Description (Other) Without redness, swelling or drainage 05/08/23 170 Site Intervention None required 05/08/23 170 Dressing Assessment Dressing clean, dry, and intact 05/08/23 170 Number of days: 0 Drain Other-Describe Left;Lower Abdomen (Active) Status Bulb Suction 05/08/231551 Suction Bulb Suction 05/08/231551 Site Description Without redness, swelling or drainage 05/08/231551 Dressing Assessment Dressing clean, dry, and intact;Sanguineous drainage 05/08/231551 Dressing Intervention Applied 05/08/231551 Number of days: 0 Vital Signs: BP: 115/62 (05/08/231729) Temp: 36.8 C (98.2 F) (05/08/231729) Pulse: 86 (05/08/231729) Resp: 16 (05/08/231729) SpO2: 97 % (05/08/231729) O2 flow rate: 10 L/MIN (05/08/231554) Time of last pain medication: 1732 Dilaudid Time of last antibiotic: 1433 Mefoxin Time of last antiemetic: 1002 Zofran RAILWAY STATION MANAGER: no Drips: no Neurological: Speech: Unable to assess (05/08/231552) Level of Consciousness: Responds to voice (05/08/231552) RUE Motor Strength: 4-Active movement with some resistance (05/08/231552) RLE Motor Strength: 4-Active movement with some resistance (05/08/231552) LUE Motor Strength: 4-Active movement with some resistance (05/08/231552) LLE Motor Strength: 4-Active movement with some resistance (05/08/231552) Coma Score: 15 (05/08/231729) Respiratory: Respiratory WNL: X - Exceptions to WNL as documented below (05/08/231552) Cough: None (05/08/231552) Depth/Rhythm: Regular (05/08/231552) Dyspnea Occurance: None (05/08/231552) Effort: Unlabored (05/08/231552) Oxygen therapy/ Mechanical vent Supplemental O2 Delivery: Room Air, None (05/08/231729) O2 flow rate: 10 L/MIN (05/08/231554) Cardiac: Cardiovascular WNL: X - Exceptions to WNL as documented below (05/08/231552) Heart Sounds: S1;S2 (05/08/231552) Rhythm: NSR (05/08/231552) Extremities: +Sensation;Right;Left;Upper;Lower;Warm (05/08/231552) Pulses Right: Dorsalis Pedis +;Radial + (05/08/231552) Pulses Left: Dorsalis Pedis +;Radial + (05/08/231552) Capillary Refill: 3 sec (05/08/231552) GI: GI WNL: X - Exceptions to WNL as documented below (05/08/231552) Abdomen: Soft;Tender (05/08/231552) : WNL: X - Exceptions to WNL as documented below (05/08/231552) Urine Description: Clear;Yellow (05/08/231552) Urostomy Ileal conduit RLQ (Active) Stomal Appliance 2 piece 05/08/23 1551 Stoma Assessment Viable (red, pink, moist) 05/08/23 1551 Peristomal Skin Clear;Intact 05/08/23 1551 Urine Description Clear;Yellow 05/08/23 1551 Output (mL) 250 mL 05/08/23 1700 Number of days: 0 Due to Void: Ilealconduit Integumentary:Integumentary WNL: WNL - within normal limits (05/08/23 1553) Skin Description: Warm;Dry (05/08/23 1553) Family updated on transfer: yes Additional Assessment Information: none * Anupam Verdin RN - 05/08/2023 9:22 AM EDT Dual Licensed Skin Assessment completed by Suleiman Verdin RN and Edelmira Smart RN The patient is/has a N/A Skin Breakdown (includes non blanchable erythema): No * Melanie De La Fuente RN - 05/07/2023 9:10 AM EDT NO ANESTHESIA EVAL REQUESTED PER CASE DOCUMENTATION. Pre-operative chart review completed. Presurgery instructions sent to patient via [employer] message-no call made PREOP PATIENT INFORMATION AND EDUCATION: MEDICATION INSTRUCTIONS: The day of surgery/procedure, you may TAKE the following medications with a sip of water up to 2 hours prior to your arrival time: Per General Internal Medicine 05/01/23: Instructions for medications on the morning of surgery: Take NO medications on the morning of surgery. AVOID/ DO NOT TAKE any medications the morning of surgery/procedure that are not listed above. STOP taking the following medications the noted number of days prior to surgery/procedure unless otherwise specified by your surgeon: Per General Internal Medicine 05/01/23: Please stop vitamins/supplements/NSAIDS ( aleve/motrin/diclofenac ) 10 days before the surgery. Please follow surgeon's instructions regarding use of Aspirin, Coumadin, Plavix, Eliquis, and any other blood thinner including NSAIDs (non-steroidal anti- inflammatory drugs, eg, Advil, Ibuprofen, Motrin, Aleve, Naproxen); if you have any questions regarding your anticoagulation therapy please contact your surgeon's clinic. Please verify any proposed stoppage of your anticoagulation therapy with the agent's prescribing provider. 10 days prior to surgery/procedure Stop all Herbal supplements, Green Tea, Turmeric, Melatonin, CBD, THC, etc. Stop all Vitamins (including Vitamin E) 24 hours prior to surgery/procedure DO NOT consume any alcohol. DO NOT use medical marijuana. DO NOT smoke or use tobacco products of any kind after midnight prior to surgery. *Using any of these products may increase your risks of procedural complications. IF IT IS LESS THAN RECOMMENDED STOPPAGE TIME PLEASE STOP AT TIME OF NOTIFICATION. FASTING RECOMMENDATIONS: To reduce risk, it is important for all elective surgery patients to follow the specific fasting guidelines listed below. If you have received more stringent guidelines, please follow the MOST RESTRICTIVE guidelines that you have been provided. Per Urology 04/25/23: NPO (nothing by mouth) after midnight the night before surgery. Pt informed to take any necessary meds with sips of water only. Any drinks given by your surgical service take as directed. THE DAY BEFORE YOUR SURGERY: -Drink plenty of fluid the day before your surgery. Contact your surgeon's office if you develop any of the following within 2 weeks of surgery: A cold Infection Fever Shingles Chicken pox or exposure to chicken pox Open areas such as scrapes, cuts, conrad or other skin conditions Rashes GENERAL INSTRUCTIONS FOR PREPARING FOR SURGERY: BATHING INSTRUCTIONS: Bathe the evening prior to and the morning of surgery/procedure. Cleanse your body using ONLY anti-bacterial soap (eg, Dial, Safeguard) or any specific soap/cleansers and instructions provided by your surgeon (eg, Chlorhexidine). -You should brush your teeth the morning of surgery. Do NOT apply any lotions, powders, sprays, creams, oils, make-up, or deodorants after bathing. No hairspray, or nail guyanese on fingers or toes. Day of surgery/procedure do not use tampons. If you wear contacts wear your eyeglasses if available otherwise bring your contact supplies with you to remove them prior to your surgery/procedure. If you wear glasses or dentures, please bring cases in which you can store them during your surgery. Please remove all piercings and jewelry and leave them at home. Wear comfortable and loose clothing. -Please leave all valuables at home. -If you use a CPAP and are staying overnight, please bring your mask and tubing with you to the hospital. -If you use an assistive mobility device (walker, cane, etc), please label it with your name and bring to hospital. -An escort water truck driver is required if you are being discharged the same day of the surgery. You should have a responsible adult over the age of 18 [address] you home. This person should be present with youin the hospital at the time of discharge and for the first 24 hours after the surgery to support your needs. If you are taking a taxi home, you must have your responsible democrat accompany you in the taxi ride home at the time of discharge. OR times subject to change. Please check voicemail messages the day/evening before your surgery forany updates. PRE-OP: You will be taken to the pre-op area where your vital signs (blood pressure, pulse and temperature)will be taken. Any preparations that need to be done will be done there. When it is time for your surgery, you will be taken to the operating room. PARENTS OF PEDIATRIC PATIENTS WILL BE ALLOWED TO STAY WITH THEIR CHILDREN UNTIL THEY ARE ESCORTED TO THE OPERATING ROOM OUTPATIENT SURGERY PATIENTS: After your surgery you will be taken to the Same Day Surgery Unit when you are awake and will go home from there. You will get instructions about your home care before you leave. Arrange to have someone drive you home from the hospital. You may not drive for 24 hours after anesthesia. You must havean adult stay with you at home for 24 hours after your operation. This is very important. If you are not able to comply with these guidelines, your Short Stay surgery cannot be done. ADMISSION PATIENTS: After your stay in the recovery area, you will be taken to your room. Your family may visit you in your room based on current visitation policy. If a next day discharge is expected, it is important to make arrangements for a water truck driver to take you home. Please be aware our visitation policies are subject to change Professionals, attendants, caregivers or family members are allowable visitors for patients with intellectual, developmental or cognitive disabilities, communication barriers or behavioral concerns. Because patients' and families' needs vary, they will be taken into account when applying visitation restrictions. [facility]: Contact # [phone] Directions to Surgical Suite in from the Daniela Entrance The Surgical Waiting Room can be found in the Lobby of [facility]. Enter through Main Lobby Entrance and the Waiting Room is directly in front of you. Proceed to check in and give them your name. Directions to Surgical Suite from the East Entrance Enter the East entrance and follow the hallway to the J elevator. Take the J elevator up to Level 1. Continue down the long hallway to the main [facility] Lobby. The Surgical Waiting Room will be on your Right. Proceed to check in and give them your Name. Directions to Surgical Suite from the Parking Garage Enter the [facility] lobby and proceed down the andre to the left. At the end of the andre, turn right. Continue down the long hallway to the main [facility] Lobby. The Surgical Waiting Room will be on your Right. Proceed to check in and give them your Name. THANK YOU FOR CHOOSING [facility]! documented in this encounter OR Notes * OR Surgeon - Saul Vargas MD - 05/08/2023 4:02 PM EDT [facility] [address] [facility] [address] OPERATIVE REPORT Name: Linsey Estrella Date: 05/08/23 Time: 4:03 PM Location: OR [facility] Date: 05/08/23 Service: Urology Pre-op Diagnosis: [id number] high-grade urothelial carcinoma of the bladder with sarcomatoid differentiation HIstory of pT2N0 high-grade urothelial carcinoma of the left distal ureter Large granular lymphocytosis chronic neutropenia Post-op Diagnosis: [id number] high-grade urothelial carcinoma of the bladder with sarcomatoid differentiation 2. HIstory of pT2N0 high-grade urothelial carcinoma of the left distal ureter 3. Large granular lymphocytosis chronic neutropenia Surgeon: Saul Vargas MD Assistants: MD Yesika Mahoney MD Anesthesia: General endotracheal anesthesia Operation: 1. Radical cystectomy, hysterectomy, bilateral salpinoophorectomy, anterior vaginectomy (anterior pelvic exenteration) 2. Ileal conduit urinary diversion 3. Bilateral standard pelvic lymph node dissection Findings: - No gross extravesical tumor, mild inflammation in the left pelvis from prior nephroureterectomy - Watertight right ureteroenteric anastomosis - Hemostasis in the pelvis and retroperitoneum was complete at the conclusion of the case - All sponge and instrument counts were correct Specimens: 1. Bladder, uterus, ovaries, fallopian tubes, anterior vaginal wall 2. Left pelvic lymph nodes 3. Right pelvic lymph nodes 4. Right distal ureter, tie opposite margin Estimated Blood Loss: 400 ml Drains/Implants: 1. Right 6 khmer urinary diversion stent 2.19-Norwegian puneet drain in the pelvis Complications: None apparent Postoperative Condition: Stable to recovery Indications and History: Linsey Estrella is a 73 year old female with muscle-invasive bladder cancer. She was counseled on her management options and elected to undergo radical cystectomy, hysterectomy, bilateral salpinoophorectomy with ileal conduit urinary diversion. All risks were explained to the patient, includingrectal injury requiring temporary or permanent colostomy, damage to pelvic nerves and blood vessels, urine leak, wound infection, bowel leak, bowel obstruction requiring additional procedures, sepsis, ureteral stricture, and need for further procedures or re-operation, and the possibility that thismay not cure his disease and further cancer therapy will be needed. Description of Operation: The patient was brought to the operating room and placed in the supine position. All pressure points were appropriately padded. Anesthesia was induced without complications. She was prepped and draped in the standard sterile fashion. A ''time out'' was initiated prior to procedure. The patient was identified by name and date of . The procedure matches written consent, and correct site identified. Correct positioning. There is availability of necessary equipment. Pre-procedure checklist wascompleted. An infraumbilical incision was made and carried through the rectus sheath in the midline. The rectus muscles were bluntly and the transversalis fascia was incised to expose the retropubic space. On palpation, the bladder was mobile without evidence of extra-vesical extension. The pelvic space was developed to expose the endopelvic fascia and the external iliac vessels bilaterally. The urachus was then identified and the peritoneum was entered sharply lateral the the urachus. This was then ligated and divided to expose the peritoneal cavity. The fascia was infiltrated with Exparel (20 ml/100 ml NS). The peritoneal wings lateral to the bladder were incised down to the round ligament, which was ligated and divided. The posterior peritoneum underlying the descending colon was incised sharply to expose the left ovarian vessels. The vessels were ligated and divided with the EnSeal device and a clip was placed on the proximal end. The peritoneum overlying the right ovarian vessels was sharply opened. The vessels were ligated in the same manner was the left side. The right ureter was then identified and dissected to the UVJ. It was ligated and divided, the UVJ was closed with a 2-0 vicryl suture. The ureter was tied with a 3-0 vicryl tie and placed safely out of the field. The bowel was packed out of the pelvis and the rectum was gently retracted cephalad. The broad ligament was divided bilaterally. An EEA sizer was placed into the vagina. A colpotomy was made to enterthe vagina. The EnSeal was then used to ligate and divide the pedicles to the bladder and the anterior vaginal wall, incorporating the anterior vaginal wall en bloc with the bladder. This dissected was carried down to the bladder neck bilaterally. The urethra was then bluntly dissected off of the anterior vaginal wall, preserving about 1/4 of the wall for closure. The DVC was ligated with a 1-0 vicryl tie and divided. The urethra was isolated and dissected as far distally as possible within thepelvis and then divided. The anterior vaginal wall was then transected with the EnSeal. The bladder, uterus, ovaries and fallopian tubes, and anterior vaginal wall were removed en bloc. The DVC was over-sewn with 0-vicryl suture. The vagina was closed in a clamshell fashion with interrupted 0 vicryl sutures. The closure was watertight. A standard pelvic lymph node dissection was performed on the left side. This included the external iliac, obturator and hypogastric lymph nodes. There was no grossly abnormal lymphadenopathy. On the left side, we removed all tissue surrounding the iliac vessels as this was inflamed from her prior ne phroureterectomy. The same procedure was repeated on the right side. A segment of ileum approximately 15 cm from ileocecal valve was identified. For the conduit, a segment of healthy-appearing ileum measuring approximately 15 cm in length was harvested by dividing themesentery with the Ligasure device and dividing the bowel with a ANY-75 in-line stapler. The conduit was dropped into the pelvis. A [id number]-[id number] bowel anastomosis was performed with the ANY stapler. The bowel lumen was inspected and was noted to be healthy with a wide caliber anastomosis. The staple line was over sewn with 3-0 silk sutures in a Lembert fashion. The mesenteric trap was closed withinterrupted silk sutures. There was no evidence of bowel ischemia or mesenteric hematomas. Attention was then turned to the ureteroileal anastomosis. A Roldan anastamosis was performed by aligning the spatulated right ureter with the distal end of the conduit, which was completely opened.A running anastomosis was performed using 4-0 monocryl suture; prior to completing the anastomosis,a 6Fr ureteral stent was placed over a wire into the renal pelvis. The stent irrigated clear urine.The anastomosis was tested and was noted to be watertight. Prior to maturing the stoma, the pelvis and retroperitoneum was inspected for bleeding and hemostasis was achieved. The small bowel was run to the level of the Ligament of Treitz and was noted to be healthy. There was no bleeding from bowel anastomosis. The stoma was then matured at the site previously marked by the ostomy nurse over the right rectus abdominus muscle. Vicryl sutures were used to anchor the conduit to the fascia and it was matured tova [place] fashion. The stoma was pink and healthy at the conclusion. A 19-Norwegian puneet drain was left in the pelvis. The abdomen was inspected for sponges and instruments. The fascia was closed with two running 1-0 PDS sutures with intermittent 1-0 vicryl retention sutures. The wound was irrigated thoroughly. The subcutaneous tissue was approximated and the skin wasclosed with monocryl and dermabond. The ostomy wafer, bag and a sterile dressing were applied. The patient tolerated the procedure well and was taken to recovery in good condition. Attestation: I was present and performed all portions of the procedure . documented in this encounter Miscellaneous Notes * Ancillary Progress Note - Kenneth Shelton RN - 05/13/2023 10:51 AM EDT CARE MANAGEMENT - ADULT DISCHARGE NOTE [facility]-[address] [address] Name: Linsey Estrella [facility] Date: 05/13/2023 Time: 10:52 AM The following coordination of care and discharge plan has been coordinated with the care team, patient, family and/or caregiver according to the patients needs and preferences. Discharge Discharge Second Notice Important Message from Medicare delivered: Yes (05/13/23 1051) Date Delivered: 05/13/23 (05/13/23 1051) Discharge Transportation: Family/Friends drive (05/13/23 1051) Patient declined post-hospital transition of care recommendation: N/A (05/13/23 1051) Final Discharge Plan (Complete only at time of Discharge): Home with Services (05/13/23 1051) Home Medical Care - Discharged on 05/13/2023 Admission date: 05/08/2023 - Discharge disposition: Home- Self Care Service Provider Selected Services Address Phone Fax Patient Preferred Last Updated [facility] [address] [place] [id number] [phone] -- Kenneth Shelton RN 05/13/2023 1522 Internal Comment last updated by Yanely Kaiser OSA 05/13/2023 1338 05/12 Going to fax physical information an call to have them review and call back. DLK Spoke with Allison going to give to nurse to run and call back. DLK SOC will be Saturday 05/13, notified CM Cindi. [facility] Home Medical Care - Episodes Includes Home Medical Care providers with selected services from the active episodes listed below Blood Disorders Episode start date: 01/03/2021 There are no active outsourced providers for this episode. Narrative: discharge to home with spouse. Spouse to transport. CM working on obtaining accepting agency today for ostomy and drain care. Reviewed IMM with Linsey and informed that patient is medically stable for discharge, however, may have 4 hours to consider whether they want to appeal discharge. Linsey waived waiting those 4 hours and wishes for discharge to occur prior to that time. Accepted by [facility] with SOC on 05/14/2023 Clinicals faxed to number in [facility]. * Pt Handout (on AVS) - Betty Craig RN - 05/13/2023 10:45 AM EDT Images from the original note were not included. [id number] What Is a Urostomy? Urostomy is surgery that provides a new way for the body to get rid of urine (waste fluid). It's done when the bladder is diseased or damaged. During the surgery, the surgeon brings part of the urinary tract or some of the digestive tract through the belly (abdominal) wall. Urostomy can be done in any of the ways described below. In each case, a small opening (stoma) is made in the abdomen. This allows urine and mucus to pass out of the body. The urinary tract This organ system rids the body of urine and is made up of many parts. They include 2 kidneys, 2 ureters, the bladder, and the urethra. The kidneys filter waste substances and extra water from the blood. This makes urine. The ureters transport urine from the kidneys to the bladder. The bladder stores urine. The urethra releases urine from the bladder to outside the body. Common types of urostomies These include: Ileal conduit. This surgery makes a tube (conduit) from part of the ileum. This is the last partof the small intestine. Urine leaves the body through this tube. One end of the conduit is sewn shut. The other end is brought through the abdominal wall to form a stoma. The ureters are detached from the bladder and connected to the conduit. Urine flows through the ureters and into the conduit. Urine then leaves the body through the stoma. This surgery doesn't change the way stool passes from the body. An ileal conduit is the most common type of urostomy. Colon conduit. This surgery is done much like an ileal conduit. But in this case the tube is made from a piece of the colon and not the ileum. The resulting stoma is bigger, as the colon is wider than the ileum. Ureterostomy. This surgery brings the ureters through the abdominal wall to form 1 or 2 stomas. In this case, the stomas are smaller. This is because the ureters are more narrow than the ileum or the colon. Continent cutaneous diversion. A pouch may be made under the abdominal skin using tissue from the stomach or intestines. The urine is collected in the pouch and is kept from leaving because of a valve. The person doesn't wear a bag. Instead, a thin tube (catheter) is used to sometimes empty the pouch. Orthotopic neobladder. This is called a neobladder because, in some people, it may be possible to make a new bladder from a part of the bowel. The new bladder is connected to the urethra. So a person can pee normally. No stoma is needed since the urine empties naturally through the urethra. If the new bladder doesn?t work as a normal bladder, a catheter may have to be inserted to drain urine. The stoma The stoma is an opening on the abdomen through which urine and mucus can pass. It's made by bringing the end of the ileum, the colon, or one or both ureters through the abdominal wall. This end is then turned back on itself, like a cuff. The stoma is pink or red and moist. This is because the insides of the ileum, the colon, and theureters are like the inside of the mouth. The stoma shrinks to its final size 6 to 8 weeks after surgery. Then it will be round or oval. The stoma will either be flat or it will sit inch to inch above the skin. With an ileal or a colon conduit, both urine and mucus pass through the stoma. After a ureterostomy, only urine comes out of the stoma. Urine draining from the stoma is often collected into an attachable pouch. Urine can be drained from the pouch at your convenience or when the pouch is full. Last Reviewed Date: 12/19/202019995826-5535 The [employer]. All rights reserved. This information is not intended as a substitute for professional medical care. Always follow your healthcare professional's instructions. * Pt Handout (on AVS) - Betty Craig RN - 05/13/2023 10:45 AM EDT Images from the original note were not included. 89129 Urostomy: Staying Healthy You?ve just had a urostomy to make a new way for pee (urine) to drain from your body. Follow the tips on this sheet. They'll help you learn how to stay healthy and prevent problems. A few words on diet You don?t have to follow a special diet or stay away from any foods. But be aware that asparagus and some other foods may cause your pee to smell or look different. Drinking plenty of water Drinking plenty of water will help prevent pee odor. It will also prevent dehydration. This is whentoo much fluid is lost from the body. If you get dehydrated, less pee will flow from your stoma. You may feel thirsty and tired. And your skin and mucous membranes may get dry. You may also get stomach cramps. Here are some tips: Drink at least 8 glasses of water a day, unless your healthcare provider has told you to drink less fluid. If you do get dehydrated, try to drink plenty of fluids. Call your provider if you can?t keep fluids down because of an upset stomach or vomiting. Taking a shower or bath You can take a shower or bath with or without your pouch. Keep in mind: If you want to bathe without your pouch, you may want to do it in the morning. This is when yourpee output is less. Remember, pee will come out of your stoma. There's no way to stop the output. At other times of the day, showering is a better option than bathing. Any pee that flows from your stoma will run down the drain. When you have a checkup You may need to see your provider every few months at first. After that, your stoma should be checked once a year. Keep in mind: Any time your provider needs a pee sample, it should be taken from your stoma. This will be donewith a special tube (catheter). Don' take a pee sample from your pouch yourself. When you see your provider, bring extra supplies. This is helpful in case you need to change your pouch. Always let your provider know right away if you have a problem with your urinary tract or stoma. Call 911 Call 911 or get medical care right away if you have any of these: A deep cut in the stoma A lot of bleeding from the stoma opening A moderate amount of blood in the pouch at several emptyings Continuous bleeding where the stoma and skin meet Severe skin irritation or deep sores Abnormal change in stoma size and color Fever and a strong odor from the stoma When to call your healthcare provider Call your provider if you have any of these symptoms of a urinary tract infection: Belly pain Blood in your pee Cloudy or bad-smelling pee for more than a week Fever of 100.4F (38 C) or higher, or as advised by your provider Chills Kidney pain Getting support Adjusting to a urostomy takes time. But your family and friends can help you. Your surgeon; wound, ostomy, and continence (WOC) nurse; and other healthcare providers can answer your questions. They can help you find a support group. This is a group of people who share the same concerns or problems.You can also contact these organizations for more information and support: [employer] [place] at www.uoaa.org [employer] at www.cancer.org Wound, Ostomy, and Continence Nurses Society (WOCN) at www.wocn.org Last Reviewed Date: 07/19/202119990400-4507 The [employer], [employer]. All rights reserved. This information is not intended as a substitute for professional medical care. Always follow your healthcare professional's instructions. * Ancillary Progress Note - Kenneth Shelton RN - 05/13/2023 10:41 AM EDT CARE MANAGEMENT - ADULT TRANSITION NOTE [facility] [address] Name: Linsey Benitescornelio Location: [place] [address]/B Date: 05/13/2023 Time: 10:42 AM Risk Stratification Risk Stratification Psycho Social / Medical Concerns Identified: Adjustment to illness/injury;Multiple Comorbidities (05/09/23907) OBRA or OPTIONS needed for placement: No (05/09/23907) Readmission Risk Score: 18.57 (05/13/23800) AM-PAC Score With Stairs : 24 (05/12/232009) Caregiver Information Patient Contacts Name Relation Home Work Mobile Himanshu Estrella Spouse [phone] Carolyn Estrella Adult Child [phone] Transition of Care Checklist Transition of Care Checklist (aka Readmission Risk Score) Discharge Disposition: Home w/Home Health (05/09/23911) Home or Home w/Home Health: Moderate (12-17%) (05/09/23911) Narrative: Pt discussed in IDT Rounds today. Likely ready to discharge home today. New RUQ urostomy and LLQ drain in place. AMPAC= 24 CM messaged DIRECTOR OF VOCATIONAL TRAINING Esther to request follow up on prior HH referrals initiated. Accepting agency pending. Please contact CM with any further concerns. Anticipated Transportation at Discharge: family Patient/Family Expectations: home with HH Transition Planning Transition Planning Transition Plan/Considerations: Needs uncertain at this time - Continue monitoring for needs;Discussed at Interdisciplinary Team / Boost Rounds (05/09/23911) Insurance Considerations: N/A (05/09/23911) Referral to Community Agency : N/A (05/09/23911) Post-Acute Care needs identified and Referrals Completed: Ostomy Care (05/09/23911) Agency Choice Due to: Choices offered, no preference;Insurance considerations (05/09/23911) Additional Considerations: none Care Management will continue to monitor and assist with discharge planning needs * Progress Notes - Non-Billable - Shravan Hudson MD - 05/13/2023 10:36 AM EDT Puneet drain was taken off suction and removed without incident. Patient tolerated procedure well. * Progress Notes - Post-Op Global - Shravan Hudson MD - 05/13/2023 7:04 AM EDT PROGRESS NOTE - Urology [facility]-[address] [address] Name: Linsey Estrella Location: [address] Date: 05/13/2023 Time: 7:04 AM SUBJECTIVE: Afebrile, vitals are stable. No acute overnight events. Doing well this morning with minimal complaints. Tolerating diet without nausea, vomiting, chest pain, shortness of breath. Positive flatus and bowel movement Outputs: Urostomy 1450 mL Drain 640 mL PHYSICAL EXAMINATION: Most Recent Vital Signs: BP: 93 mmHg/52 mmHg (05/13/23231) Pulse: 75 (05/13/23231) Temp: 37.39 C (05/13/23228) Temp Summary: Temp Min: 36.8 C (98.2 F) Max: 37.4 C (99.3 F) SpO2: 100 % (05/13/23228) O2 flow rate: 0 L/MIN (05/12/23 0820) Supplemental O2 Delivery: Room Air, None (05/13/23228) Vital Signs Last 24 Hours: Systolic BP: Most Recent Systolic BP Av.7 mmHg Min: 93 mmHg Max: 107 mmHg Temperature: Most Recent Temperature Av C Min: 36.78 C Max: 37.39 C Pulse: Pulse Av.7 Min: 72 Max: 84 Respirations: Resp Av.8 Min: 16 Max: 19 SpO2: SpO2 Av % Min: 100 % Max: 100 % Intake/Output Summary (Last 24 hours) at 05/13/2023 0704 Last data filed at 05/13/2023 0646 Gross per 24 hour Intake 670 ml Output 2090 ml Net -1420 ml General: awake, alert and responsive Heart:: Regular rate Chest: Normal WOB Abdomen: soft, nondistended, not tender to palpation. Incision clean, dry, intact with Dermabond. Drain with serosanguineous fluid Extremities: no deformities : right lower quadrant urostomy pink and healthy with clot overlying. Urine is clear, light pink in bag. Right ureteral stent. CURRENT HOSPITAL MEDICATIONS: Note that completed medications (per the MAR) continue to display for 24 hours. Current Facility-Administered Medications Medication Dose Route Frequency Provider Enoxaparin (Lovenox) inj 40 mg 40 mg Subcutaneous Daily(AM) Yesika Mahajan MD Filgrastim-aafi (Nivestym) inj 480 mcg 480 mcg Subcutaneous Daily 1600 Shravan Hudson MD Acetaminophen (Tylenol) tab 975 mg 975 mg Oral Q8H Shravan Hudson MD calcium CARBonate (Tums E-X) tab CHEW 750 mg 750 mg Oral Q6H PRN Shravan Hudson MD fluticasone (Flonase) nasal inhaler 2 Egnar 2 Egnar Each Nostril Daily(AM) Shravan Hudson MD IMPACT AR liquid 250 mL Oral BID (AM/PM meals) Shravan Hudson MD Loratadine (Claritin) tab 10 mg 10 mg Oral HS Shravan Hudson MD melatonin tab 1 mg 1 mg Oral HS PRN Shravan Hudson MD Menthol (Hudson) cough drop 1 Lozenge 1 Lozenge Oral Q2H PRN Shravan Hudson MD ondansetron ODT (Zofran) tab 4 mg 4 mg On Tongue Q6H PRN Shravan Hudson MD Or ondansetron (Zofran) inj 4 mg 4 mg IV Push Q6H PRN Shravan Hudson MD oxyCODONE (Oxy IR) tab 10 mg 10 mg Oral Q4H PRN Shravan Hudson MD oxyCODONE (Oxy IR) tab 5 mg 5 mg Oral Q4H PRN Shravan Hudson MD phenol (chlorASEPTIC) spray 3 Egnar 3 Egnar Oral Q4H PRN Shravan Hudson MD Polyethylene Glycol 3350 (Miralax) oral powder 17 g 1 Packet Oral HS Shravan Hudson MD prochlorperazine (Compazine) tab 10 mg 10 mg Oral Q6H PRN Shravan Hudson MD Or prochlorperazine (Compazine) inj 10 mg 10 mg IV Push Q6H PRN Shravan Hudson MD senna (Senokot) 2 Tablet 2 Tablet Oral Daily(AM) Shravan Hudson MD Simethicone (Mylicon) chew tab 80 mg 80 mg Oral Q6H PRN Shravan Hudson MD LABS: CHEMISTRY: BUN, Creatinine, GFR Estimated, Sodium, Potassium, Chloride, Carbon Dioxide, Glucose, Calcium (see below for most recent value): Lab Results Component Value Date/Time BUN 22 (H) 05/12/2023 04:54 AM BUN 16 10/27/2019 10:00 AM CREAT 0.9 05/12/2023 04:54 AM CREAT 0.9 10/27/2019 10:00 AM GFRESTIMATED >60.0 10/27/2019 10:00 AM NA 137 05/12/2023 04:54 AM NA 143 10/27/2019 10:00 AM POTASSIUM 4.1 05/12/2023 04:54 AM POTASSIUM 4.2 10/27/2019 10:00 AM CL 108 (H) 05/12/2023 04:54 AM CL 105 10/27/2019 10:00 AM CO2 22 05/12/2023 04:54 AM CO2 28 10/27/2019 10:00 AM CA 8.2 (L) 05/12/2023 04:54 AM CA 9.3 10/27/2019 10:00 AM BLOOD COUNT: WBC, Hgb, Platelets (see below for most recent value): Lab Results Component Value Date/Time WBC 3.98 (L) 05/13/2023 06:27 AM WBC 4.03 11/13/2019 11:29 AM HGB 9.6 (L) 05/13/2023 06:27 AM HGB 13.6 12/08/2021 12:00 AM HGB 13.6 12/01/2021 12:00 AM PLT 190 05/13/2023 06:27 AM PLT 313 11/13/2019 11:29 AM CULTURES: Lab Results Component Value Date/Time CULTURE LESS THAN 10,000 COLONIES/ML MIXED NORMAL LÓPEZ 10/27/2019 10:12 AM IMAGING: XR CHEST 1 VIEW Result Date: 05/11/2023 IMPRESSION No acute cardiopulmonary finding. XR ABDOMEN 1 VIEW Result Date: 05/11/2023 IMPRESSION Likely ileus versus early small bowel obstruction. Added to radiology results pathway communication system at 3:59 pm on 05/11/2023. ASSESSMENT: 73-year-old female status post open anterior pelvic exenteration, bilateral pelvic lymph node dissection, 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 Doing well. Meeting all milestones for discharge PLAN: - patient requests ostomy nurse to reviewed pouching 1 more time - continue regular diet - we will remove drain after rechecking drain Cr - Maintain ureteral stent on discharge today - Pain control: tylenol ATC, oxycodone prn - Nausea control: Zofran/compazine prn - IV fluids: SLIV - Diet: reg - Labs: reviewed, - DVT ppx: SCDs, Lovenox for 28 days postop, teaching completed. - Bowel regimen: senna, miralax. - Abx: periop cefoxitin - MEDICAL SOCIAL WORKER meds: reviewed, restarted as appropriate. Vesicare discontinued. 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 Keep stent on dc - Dispo: med/surg, anticipate discharge home today Patient discussed with Dr. Alicia Hudson MD Urology Resident [facility] Associated attestation - Saul Vargas MD - 05/13/2023 2:05 PM EDT I saw and evaluated the patient today. I have reviewed the trainee note and agree. * Care Plan - Amy Larson RN - 05/13/2023 2:38 AM EDT Clinical Goal(s): Patient will have adequate pain control during the shift (05/12/23 2241) Possible barriers to meeting goal(s)/advancing plan of care: s/p B/L pelvic lymph node dissection and ileal conduit formation Stability of the patient: Moderately stable - low risk of patient condition declining or worsening Summary regarding today's goal(s): Met: patient reported adequate pain control during the shift w/ use of scheduled tylenol Recommendations: continue current pain management techniques * Care Plan - Christa Jiang RN - 05/12/2023 7:26 PM EDT Clinical Goal(s): Will will be free from falls and injury this shift. (05/12/23 0700) Possible barriers to meeting goal(s)/advancing plan of care: Pt illness. Stability of the patient: Moderately stable - low risk of patient condition declining or worsening Summary regarding today's goal(s): Met: Pt free from falls and injury this shift. Recommendations: Keep bed in low position with side rails up x 3. Encourage pt to use callbell whenassistance is needed. * Progress Notes - Non-Billable - Yesika Mahajan MD - 05/12/2023 1:47 PM EDT Urology PM rounds: SUBJECTIVE: No pain, no n/v with breakfast. About to eat lunch now. at bedside, they've walked hallway x2. OBJECTIVE: Most Recent Vital Signs: BP: 106 mmHg/56 mmHg (05/12/23 1141) Pulse: 75 (05/12/23 1141) Temp: 36.78 C (05/12/23 1141) Temp Summary: Temp Min: 36.4 C (97.5 F) Max: 36.9 C (98.4 F) SpO2: 100 % (05/12/23 1141) O2 flow rate: 0 L/MIN (05/12/23 0820) Supplemental O2 Delivery: Room Air, None (05/12/23 1141) Vital Signs Last 24 Hours: Systolic BP: Most Recent Systolic BP Av.5 mmHg Min: 101 mmHg Max: 116 mmHg Temperature: Most Recent Temperature Av.7 C Min: 36.39 C Max: 36.89 C Pulse: Pulse Av.7 Min: 73 Max: 95 Respirations: Resp Av.5 Min: 16 Max: 18 SpO2: SpO2 Av.5 % Min: 98 % Max: 100 % In / Out Past 24 Hr: Intake/Output Summary (Last 24 hours) at 05/12/2023 1347 Last data filed at 05/12/2023 1330 Gross per 24 hour Intake 629.66 ml Output 3685 ml Net -3055.34 ml Output by Drain (mL) 05/11/23 0700 - 05/11/23 1459 05/11/23 1500 - 05/11/23 2259 05/11/23 2300 - 05/12/23 0659 05/12/23 0700 - 05/12/23 1347 Range Total Drain Other-Describe Left;Lower Abdomen 320 265 [phone] Physical Exam Gen: NAD, pleasant Abd: Soft, NTND, dressing c/d/i : Urostomy healthy and viable, mucous and blood clot over top, stent in place, fruit punch blood tinged urine in urostomy. DAVID serosang. Assessment and Plan 73-year-old female status post open anterior pelvic exenteration, bilateral pelvic lymph node dissection, 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 Large volume emesis x1 05/10. Drain Cr 05/10 consistent with serum Cr, no urine leak. Continues to do well with solid diet Plan on discharge 05/12 if meeting postop milestones. Drain Cr prior to drain removal before discharge. Yesika Mahajan MD 05/12/2023 1:49 PM * Progress Notes - Post-Op Global - Yesika Mahajan MD - 05/12/2023 8:25 AM EDT PROGRESS NOTE - Urology [facility] [place]-[address] [address] Name: Linsey Estrella Location: [facility] G205/B Date: 05/12/2023 Time: 8:25 AM SUBJECTIVE: Afebrile, vitals are stable. One high volume emesis of 900mL in early afternoon 05/10, KUB shows possible early ileus vs SBO. She reports no further nausea/vomitting. Did well with small amount intake for dinner and breakfast. She has had multiple BMs, continues to pass flatus. Continuesto ambulated in hallway, good pain control. No other acute issues in last 24hrs. Outputs: Urostomy 1850 mL Drain 775 mL PHYSICAL EXAMINATION: Most Recent Vital Signs: BP: 101 mmHg/60 mmHg (05/12/23743) Pulse: 73 (05/12/23743) Temp: 36.78 C (05/12/23743) Temp Summary: Temp Min: 36.4 C (97.5 F) Max: 37 C (98.6 F) SpO2: 100 % (05/12/23743) O2 flow rate: 0 L/MIN (05/11/23829) Supplemental O2 Delivery: Room Air, None (05/12/23743) Vital Signs Last 24 Hours: Systolic BP: Most Recent Systolic BP Av mmHg Min: 101 mmHg Max: 121 mmHg Temperature: Most Recent Temperature Av.8 C Min: 36.39 C Max: 37 C Pulse: Pulse Av.3 Min: 73 Max: 95 Respirations: Resp Av.2 Min: 16 Max: 18 SpO2: SpO2 Av.7 % Min: 95 % Max: 100 % Intake/Output Summary (Last 24 hours) at 05/12/2023 0825 Last data filed at 05/12/2023 0629 Gross per 24 hour Intake 439.66 ml Output 3525 ml Net -3085.34 ml General: awake, alert and responsive Heart:: Regular rate Chest: Normal WOB Abdomen: soft, nondistended, not tender to palpation. Incision clean, dry, intact with Dermabond. Drain with serosanguineous fluid Extremities: no deformities : right lower quadrant urostomy pink and healthy with clot overlying. Urine is clear, fruit punchin bag. Right ureteral stent. CURRENT HOSPITAL MEDICATIONS: Note that completed medications (per the APR) continue to display for 24 hours. Current Facility-Administered Medications Medication Dose Route Frequency Provider Famotidine (Pepcid) tab 20 mg 20 mg Oral Daily 1900 Yesika Mahajan MD Enoxaparin (Lovenox) inj 40 mg 40 mg Subcutaneous Daily(AM) Yesika Mahajan MD Filgrastim-aafi (Nivestym) inj 480 mcg 480 mcg Subcutaneous Daily 1600 Shravan Hudson MD Acetaminophen (Tylenol) tab 975 mg 975 mg Oral Q8H Shravan Hudson MD calcium CARBonate (Tums E-X) tab CHEW 750 mg 750 mg Oral Q6H PRN Shravan Hudson MD fluticasone (Flonase) nasal inhaler 2 Egnar 2 Egnar Each Nostril Daily(AM) Shravan Hudson MD IMPACT AR liquid 250 mL Oral BID (AM/PM meals) Shravan Hudson MD Loratadine (Claritin) tab 10 mg 10 mg Oral HS Shravan Hudson MD melatonin tab 1 mg 1 mg Oral HS PRN Shravan Hudson MD Menthol (Hudson) cough drop 1 Lozenge 1 Lozenge Oral Q2H PRN Shravan Hudson MD ondansetron ODT (Zofran) tab 4 mg 4 mg On Tongue Q6H PRN Shravan Hudson MD Or ondansetron (Zofran) inj 4 mg 4 mg IV Push Q6H PRN Shravan Hudson MD oxyCODONE (Oxy IR) tab 10 mg 10 mg Oral Q4H PRN Shravan Hudson MD oxyCODONE (Oxy IR) tab 5 mg 5 mg Oral Q4H PRN Shravan Hudson MD phenol (chlorASEPTIC) spray 3 Egnar 3 Egnar Oral Q4H PRN Shravan Hudson MD Polyethylene Glycol 3350 (Miralax) oral powder 17 g 1 Packet Oral HS Shravan Hudson MD prochlorperazine (Compazine) tab 10 mg 10 mg Oral Q6H PRN Shravan Hudson MD Or prochlorperazine (Compazine) inj 10 mg 10 mg IV Push Q6H PRN Shravan Hudson MD senna (Senokot) 2 Tablet 2 Tablet Oral Daily(AM) Shravan Hudson MD Simethicone (Mylicon) chew tab 80 mg 80 mg Oral Q6H PRN Shravan Hudson MD LABS: CHEMISTRY: BUN, Creatinine, GFR Estimated, Sodium, Potassium, Chloride, Carbon Dioxide, Glucose, Calcium (see below for most recent value): Lab Results Component Value Date/Time BUN 22 (H) 05/12/2023 04:54 AM BUN 16 10/27/2019 10:00 AM CREAT 0.9 05/12/2023 04:54 AM CREAT 0.9 10/27/2019 10:00 AM GFRESTIMATED >60.0 10/27/2019 10:00 AM NA 137 05/12/2023 04:54 AM NA 143 10/27/2019 10:00 AM POTASSIUM 4.1 05/12/2023 04:54 AM POTASSIUM 4.2 10/27/2019 10:00 AM CL 108 (H) 05/12/2023 04:54 AM CL 105 10/27/2019 10:00 AM CO2 22 05/12/2023 04:54 AM CO2 28 10/27/2019 10:00 AM CA 8.2 (L) 05/12/2023 04:54 AM CA 9.3 10/27/2019 10:00 AM BLOOD COUNT: WBC, Hgb, Platelets (see below for most recent value): Lab Results Component Value Date/Time WBC 3.67 (L) 05/12/2023 04:54 AM WBC 4.03 11/13/2019 11:29 AM HGB 9.9 (L) 05/12/2023 04:54 AM HGB 13.6 12/08/2021 12:00 AM HGB 13.6 12/01/2021 12:00 AM PLT 185 05/12/2023 04:54 AM PLT 313 11/13/2019 11:29 AM CULTURES: Lab Results Component Value Date/Time CULTURE LESS THAN 10,000 COLONIES/ML MIXED NORMAL LÓPEZ 10/27/2019 10:12 AM IMAGING: XR CHEST 1 VIEW Result Date: 05/11/2023 IMPRESSION No acute cardiopulmonary finding. XR ABDOMEN 1 VIEW Result Date: 05/11/2023 IMPRESSION Likely ileus versus early small bowel obstruction. Added to radiology results pathway communication system at 3:59 pm on 05/11/2023. ASSESSMENT: 73-year-old female status post open anterior pelvic exenteration, bilateral pelvic lymph node dissection, 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 PLAN: - No concerns at this time for SBO or ileus, doing well on solid diet without further n/v and continues to have bowel function - Pain control: tylenol ATC, oxycodone prn - Nausea control: Zofran/compazine prn - IV fluids: discontinued, adequate PO intake and good UOP - Diet: advanced to regular diet on POD2, continue IMPACT supplements. Enetereg discontinued given ROBF. - Labs: reviewed, electrolytes repleted - DVT ppx: SCDs, Lovenox for 28 days postop, teaching completed. - Bowel regimen: senna, miralax. 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 Vesicare discontinued. 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 - Encourage IS, OOB and ambulation - Love/drains/lines: Maintain ureteral stent x1, puneet drain until day of discharge. Drain Cr consistent with serum Cr - Dispo: med/surg, anticipate discharge home POD5 05/[address] Vargas and Dr. Lesly Mahajan MD 05/12/2023 8:25 AM Associated attestation - Deuce Grace MD - 05/12/2023 10:02 AM EDT I saw and evaluated the patient today. I have reviewed the trainee note and agree. * Care Plan - Amy Larson RN - 05/12/2023 6:30 AM EDT Clinical Goal(s): Patient will have adequate pain control during the shift (05/11/232141) Possible barriers to meeting goal(s)/advancing plan of care: s/p B/L pelvic lymph node dissection and ileal conduit formation Stability of the patient: Moderately stable - low risk of patient condition declining or worsening Summary regarding today's goal(s): Met: patient reported adequate pain control during the shift w/ scheduled pain regimen Recommendations: continue current pain management techniques * Care Plan - Christa Jiang RN - 05/11/2023 3:14 PM EDT Clinical Goal(s): Pt will be free from falls and injury this shift. (05/11/23 0700) Possible barriers to meeting goal(s)/advancing plan of care: Pt illness. Stability of the patient: Moderately stable - low risk of patient condition declining or worsening Summary regarding today's goal(s): Met: Pt free from falls and injury this shift. Recommendations: Keep bed in low position with side rails up x 3. Encourage pt to use callbell whenassistance is needed. * Progress Notes - Non-Billable - Yesika Mahajan MD - 05/11/2023 2:59 PM EDT Urology PM rounds: SUBJECTIVE: Pain is well controlled, was tolerating PO intake however after lunch had nausea and large volume emesis, brown in color. Reports she likely overdid the fresh fruits and vegetables. Continues to havebowel function with flatus and BM this morning, more well formed compared to loose movements ystd. Has been OOB, walking with assistance. No longer nauseous after emesis, feels improved. Denies any symptoms of dizziness, headache, visionchanges, sob, chest pain or pressure, tingling or loss of sensation, or swelling. OBJECTIVE: Most Recent Vital Signs: BP: 121 mmHg/64 mmHg (05/11/23 1109) Pulse: 73 (05/11/23 1109) Temp: 37 C (05/11/23 110) Temp Summary: Temp Min: 36.9 C (98.4 F) Max: 37.5 C (99.5 F) SpO2: 95 % (05/11/23 1109) O2 flow rate: 0 L/MIN (05/11/23 0830) Supplemental O2 Delivery: Room Air, None (05/11/23 110) Vital Signs Last 24 Hours: Systolic BP: Most Recent Systolic BP Av.3 mmHg Min: 116 mmHg Max: 124 mmHg Temperature: Most Recent Temperature Av.1 C Min: 36.89 C Max: 37.5 C Pulse: Pulse Av.2 Min: 72 Max: 80 Respirations: Resp Av Min: 16 Max: 16 SpO2: SpO2 Av.4 % Min: 95 % Max: 99 % In / Out Past 24 Hr: Intake/Output Summary (Last 24 hours) at 05/11/2023 1459 Last data filed at 05/11/2023 1350 Gross per 24 hour Intake 726 ml Output 4040 ml Net -3314 ml Output by Drain (mL) 05/10/23 0700 - 05/10/23 1459 05/10/23 1500 - 05/10/23 2259 05/10/23 2300 - 05/11/23 0659 05/11/23 0700 - 05/11/23 1459 Range Total Drain Other-Describe Left;Lower Abdomen 305 260 [phone] Physical Exam Gen: NAD, pleasant Abd: Soft, NTND, mildly distended compared to AM, dressing c/d/i : Urostomy healthy and viable, mucous and blood clot over top, stent in place, fruit punch blood tinged urine in urostomy. DAVID serosang. Assessment and Plan 73-year-old female status post open anterior pelvic exenteration, bilateral pelvic lymph node dissection, 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 Drain Cr 05/10 consistent with serum Cr, no urine leak. CXR and KUB stat given large volume emesis. BMP PM Patient would prefer to continue slow PO intake, nausea resolved. Will continue to monito Yesika Mahajan MD 05/11/2023 2:59 PM * Progress Notes - Post-Op Global - Yesika Mahajan MD - 05/11/2023 8:03 AM EDT PROGRESS NOTE - Urology [facility] [place]-[address] [address] Name: Linsey Estrella Location: [facility] G2/B Date: 05/11/2023 Time: 8:03 AM SUBJECTIVE: Afebrile, vitals are stable. No acute overnight events. Did well with solid diet, no n/v. She has had BM yesterday and continues to have flatus. Has ambulated in hallway, good pain control. No acute issues in last 24hrs. Outputs: Urostomy 2050 mL Drain 775 mL PHYSICAL EXAMINATION: Most Recent Vital Signs: BP: 118 mmHg/67 mmHg (05/11/23 0323) Pulse: 75 (05/11/23 0323) Temp: 37.11 C (05/11/23322) Temp Summary: Temp Min: 37 C (98.6 F) Max: 37.5 C (99.5 F) SpO2: 99 % (05/11/23322) O2 flow rate: 0 L/MIN (05/09/23 0820) Supplemental O2 Delivery: Room Air, None (05/11/23322) Vital Signs Last 24 Hours: Systolic BP: Most Recent Systolic BP Av mmHg Min: 118 mmHg Max: 124 mmHg Temperature: Most Recent Temperature Av.2 C Min: 37 C Max: 37.5 C Pulse: Pulse Av Min: 71 Max: 79 Respirations: Resp Av.4 Min: 16 Max: 18 SpO2: SpO2 Av.5 % Min: 97 % Max: 99 % Intake/Output Summary (Last 24 hours) at 05/11/2023 0803 Last data filed at 05/11/2023 0500 Gross per 24 hour Intake 962 ml Output 2725 ml Net -1763 ml General: awake, alert and responsive Heart:: Regular rate Chest: Normal WOB Abdomen: soft, nondistended, not tender to palpation. Incision clean, dry, intact with Dermabond. Drain with serosanguineous fluid Extremities: no deformities : right lower quadrant urostomy pink and healthy with clot overlying. Urine is clear, fruit punchin bag. Right ureteral stent. CURRENT HOSPITAL MEDICATIONS: Note that completed medications (per the APR) continue to display for 24 hours. Current Facility-Administered Medications Medication Dose Route Frequency Provider Enoxaparin (Lovenox) inj 40 mg 40 mg Subcutaneous Daily(AM) Yesika Mahajan MD Alvimopan (Entereg) cap 12 mg 12 mg Oral BID(AM/PM) Shravan Hudson MD Filgrastim-aafi (Nivestym) inj 480 mcg 480 mcg Subcutaneous Daily 1600 Shravan Hudson MD Acetaminophen (Tylenol) tab 975 mg 975 mg Oral Q8H Shravan Hudson MD calcium CARBonate (Tums E-X) tab CHEW 750 mg 750 mg Oral Q6H PRN Shravan Hudson MD Famotidine (Pepcid) tab 20 mg 20 mg Oral Daily 1900 Shravan Hudson MD fluticasone (Flonase) nasal inhaler 2 Egnar 2 Egnar Each Nostril Daily(AM) Shravan Hudson MD IMPACT AR liquid 250 mL Oral BID (AM/PM meals) Shravan Hudson MD Loratadine (Claritin) tab 10 mg 10 mg Oral HS Shravan Hudson MD melatonin tab 1 mg 1 mg Oral HS PRN Shravan Hudson MD Menthol (Hudson) cough drop 1 Lozenge 1 Lozenge Oral Q2H PRN Shravan Hudson MD ondansetron ODT (Zofran) tab 4 mg 4 mg On Tongue Q6H PRN Shravan Hudson MD Or ondansetron (Zofran) inj 4 mg 4 mg IV Push Q6H PRN Shravan Hudson MD oxyCODONE (Oxy IR) tab 10 mg 10 mg Oral Q4H PRN Shravan Hudson MD oxyCODONE (Oxy IR) tab 5 mg 5 mg Oral Q4H PRN Shravan Hudson MD phenol (chlorASEPTIC) spray 3 Egnar 3 Egnar Oral Q4H PRN Shravan Hudson MD Polyethylene Glycol 3350 (Miralax) oral powder 17 g 1 Packet Oral HS Shravan Hudson MD prochlorperazine (Compazine) tab 10 mg 10 mg Oral Q6H PRN Shravan Hudson MD Or prochlorperazine (Compazine) inj 10 mg 10 mg IV Push Q6H PRN Shravan Hudson MD senna (Senokot) 2 Tablet 2 Tablet Oral Daily(AM) Shravan Hudson MD Simethicone (Mylicon) chew tab 80 mg 80 mg Oral Q6H PRN Shravan Hudson MD LABS: CHEMISTRY: BUN, Creatinine, GFR Estimated, Sodium, Potassium, Chloride, Carbon Dioxide, Glucose, Calcium (see below for most recent value): Lab Results Component Value Date/Time BUN 19 05/11/2023 05:00 AM BUN 16 10/27/2019 10:00 AM CREAT 1.0 05/11/2023 05:00 AM CREAT 0.9 10/27/2019 10:00 AM GFRESTIMATED >60.0 10/27/2019 10:00 AM NA 140 05/11/2023 05:00 AM NA 143 10/27/2019 10:00 AM POTASSIUM 3.9 05/11/2023 05:00 AM POTASSIUM 4.2 10/27/2019 10:00 AM CL 109 (H) 05/11/2023 05:00 AM CL 105 10/27/2019 10:00 AM CO2 23 05/11/2023 05:00 AM CO2 28 10/27/2019 10:00 AM CA 8.3 (L) 05/11/2023 05:00 AM CA 9.3 10/27/2019 10:00 AM BLOOD COUNT: WBC, Hgb, Platelets (see below for most recent value): Lab Results Component Value Date/Time WBC 4.75 05/11/2023 05:00 AM WBC 4.03 11/13/2019 11:29 AM HGB 9.6 (L) 05/11/2023 05:00 AM HGB 13.6 12/08/2021 12:00 AM HGB 13.6 12/01/2021 12:00 AM PLT 157 05/11/2023 05:00 AM PLT 313 11/13/2019 11:29 AM CULTURES: Lab Results Component Value Date/Time CULTURE LESS THAN 10,000 COLONIES/ML MIXED NORMAL LÓPEZ 10/27/2019 10:12 AM IMAGING: No imaging results in the last 72 hours ASSESSMENT: 73-year-old female status post open anterior pelvic exenteration, bilateral pelvic lymph node dissection, 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 PLAN: - Drain for Cr today. Maintain drain until discharge - Pain control: tylenol ATC, oxycodone prn - Nausea control: Zofran/compazine prn - IV fluids: discontinued - Diet: advanced to regular diet on POD2, continue IMPACT supplements. Enetereg discontinued given ROBF. - Labs: reviewed - Love/drains/lines: Maintain ureteral stent x1, puneet drain - DVT ppx: SCDs, Lovenox for 28 days postop, teaching completed. - Bowel regimen: senna, miralax. 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 Vesicare discontinued. 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 - Encourage IS, OOB and ambulation - Dispo: med/surg, anticipate discharge home POD4 05/[address] Vargas and Dr. Lesly Mahajan MD 05/11/2023 8:03 AM Associated attestation - Deuce Grace MD - 05/11/2023 11:42 AM EDT I saw and evaluated the patient today. I have reviewed the trainee note and agree. * Care Plan - Celia Prieto RN - 05/11/2023 5:18 AM EDT Problem: Pain & Impaired Comfort Goal: Patient's pain & discomfort is manageable. Outcome: Progressing Clinical Goal(s): Pt. will have adequate pain relief this shift (05/11/23 0000) Possible barriers to meeting goal(s)/advancing plan of care: Recent ABD Surgery Stability of the patient: Moderately stable - low risk of patient condition declining or worsening Summary regarding today's goal(s): Met: Pt. States mild discomfort in abdomen Recommendations: Continue to assess pain level, scheduled tylenol. * Care Plan - Kajal Frias RN - 05/10/2023 3:16 PM EDT Clinical Goal(s): Pt will have adequate pain control for the duration of the shift (05/10/23 0700) Possible barriers to meeting goal(s)/advancing plan of care: pt ambulating more frequently Stability of the patient: Moderately stable - low risk of patient condition declining or worsening Summary regarding today's goal(s): Met: Pt has reported adequate pain control 3/10 pain with tylenol use. Recommendations: Encourage pt to verbalize pain * Pt Handout (on AVS) - Yao Ureña RPh - 05/10/2023 1:50 PM EDT Images from the original note were not included. Enoxaparin: How to Inject a Dose Subcutaneously with the Prefilled Syringe - Video Let's take a minute to talk about how to inject a dose of enoxaparin. This medicine comes in a prefilled syringe with a very small needle. You will inject the dose into the natural layer of fat just under the skin. To view the video go to this web address: [email or web address] Or, scan this QR code with your smart phone 2023 [employer]. All Rights Reserved. * Pt Handout (on AVS) - Yao Ureña RPh - 05/10/2023 1:49 PM EDT Images from the original note were not included. [id number] Enoxaparin Prefilled Syringe Brands: Lovenox Uses This medicine is used for the following purposes: heart attack prevent blood clots treatment of blood clots Instructions This medicine is injected into the skin. Ask your doctor, nurse, or pharmacist where on your body this medicine can be injected and how to inject it. Do not mix this medicine with other solutions. Always inspect the medicine before using. The liquid should be clear or light yellow. Check the medicine before each use. If the liquid medicine has any particles in it, appears discolored, or if the vial appears damaged, do not use it. Keep medicine at room temperature. Protect from light. Never use any medicine that has . Change the location of the injection each time. Choose a location at least 1 inch from the last injection. Drug interactions can change how medicines work or increase risk for side effects. Tell your healthcare providers about all medicines taken. Include prescription and [id number] medicines, vitamins, and herbal medicines. Speak with your doctor or pharmacist before starting or stopping any medicine. Talk to your doctor before taking other medicines, including aspirins and ibuprofen containing products. Speak to your doctor about which medicines are safe to use while you are on this medicine. It is very important that you follow your doctor's instructions for all blood tests. Cautions This medicine may cause serious bleeding from the stomach or bowels. Stop this medicine and call your doctor immediately if you see any signs of bleeding. Bleeding can cause pain in the stomach, vomiting up liquid that looks like coffee grounds, and red or dark tarry stools. There is an increased risk of bleeding while on this medicine, please tell your doctor or nurse if you notice any excessive bleeding or bruising. Do not use the medication any more than instructed. Tell the doctor or pharmacist if you are , planning to be , or . Ask your pharmacist how to properly throw away used needles or syringes. Do not share this medicine with anyone who has not been prescribed this medicine. Side Effects The following is a list of some common side effects from this medicine. Please speak with your doctor about what you should do if you experience these or other side effects. unusual bruising or discoloration on skin swelling of the legs, feet, and hands fever pain, redness, swelling near injection nausea red, burning, or itchy skin Call your doctor or get medical help right away if you notice any of these more serious side effects: confusion nosebleeds bloody or dark, tarry stools A few people may have an allergic reaction to this medicine. Symptoms can include difficulty breathing, skin rash, itching, swelling, or severe dizziness. If you notice any of these symptoms, seek medical help quickly. Extra Please speak with your doctor, nurse, or pharmacist if you have any questions about this medicine. [email or web address] IMPORTANT NOTE: This document tells you briefly how to take your medicine, but it does not tell youall there is to know about it. Your doctor or pharmacist may give you other documents about your medicine. Please talk to them if you have any questions. Always follow their advice. There is a more complete description of this medicine available in Slovak. Scan this code on your smartphone or tablet or use the web address below. You can also ask your pharmacist for a printout. If you have any questions, please ask your pharmacist. The display and use of this drug information is subject to Terms of Use. Copyright(c) 2022 [employer]. The [employer]. All rights reserved. This information is not intended as a substitute for professional medical care. Always follow your healthcare professional's instructions. * Progress Notes - Post-Op Global - Yesika Mahajan MD - 05/10/2023 7:20 AM EDT PROGRESS NOTE - Urology [facility] [place]-[address] [address] Name: Linsey Estrella Location: [address] Date: 05/10/2023 Time: 7:20 AM SUBJECTIVE: Afebrile, vitals are stable. No acute overnight events. Minimal discomfort this morning. Did well with clears yesterday, she is up for solid food today. She did ambulate yesterday x1 in the hallway. No flatus or bowel movement yet. Denies nausea, vomiting, chest pain, shortness of breath. Outputs: Urostomy 2350 mL Drain 620 mL PHYSICAL EXAMINATION: Most Recent Vital Signs: BP: 110 mmHg/57 mmHg (05/10/23216) Pulse: 69 (05/10/23216) Temp: 37 C (05/10/23216) Temp Summary: Temp Min: 36.5 C (97.7 F) Max: 37.2 C (99 F) SpO2: 98 % (05/10/23216) O2 flow rate: 0 L/MIN (05/09/23 0820) Supplemental O2 Delivery: Room Air, None (05/10/23216) Vital Signs Last 24 Hours: Systolic BP: Most Recent Systolic BP Av.5 mmHg Min: 98 mmHg Max: 110 mmHg Temperature: Most Recent Temperature Av C Min: 36.5 C Max: 37.22 C Pulse: Pulse Av Min: 67 Max: 77 Respirations: Resp Av.3 Min: 18 Max: 20 SpO2: SpO2 Av.7 % Min: 98 % Max: 100 % Intake/Output Summary (Last 24 hours) at 05/10/2023 0720 Last data filed at 05/10/2023 0632 Gross per 24 hour Intake 3197.98 ml Output 2970 ml Net 227.98 ml General: awake, alert and responsive Heart:: Regular rate Chest: Normal WOB Abdomen: soft, nondistended, appropriately tender to palpation. Incision clean, dry, intact with Dermabond. Drain with serosanguineous fluid Extremities: no deformities : right lower quadrant urostomy pink and healthy with clot overlying. Urine is clear, fruit punchin bag. CURRENT HOSPITAL MEDICATIONS: Note that completed medications (per the MAR) continue to display for 24 hours. Current Facility-Administered Medications Medication Dose Route Frequency Provider Alvimopan (Entereg) cap 12 mg 12 mg Oral BID(AM/PM) Shravan Hudson MD Filgrastim-aafi (Nivestym) inj 480 mcg 480 mcg Subcutaneous Daily 1600 Shravan Hudson MD Acetaminophen (Tylenol) tab 975 mg 975 mg Oral Q8H Shravan Hudson MD calcium CARBonate (Tums E-X) tab CHEW 750 mg 750 mg Oral Q6H PRN Shravan Hudson MD Famotidine (Pepcid) tab 20 mg 20 mg Oral Daily 1900 Shravan Hudson MD fluticasone (Flonase) nasal inhaler 2 Egnar 2 Egnar Each Nostril Daily(AM) Shravan Hudson MD hEParin inj 5,000 Units 5,000 Units Subcutaneous Q8H Shravan Hudson MD IMPACT AR liquid 250 mL Oral BID (AM/PM meals) Shravan Hudson MD Loratadine (Claritin) tab 10 mg 10 mg Oral HS Shravan Hudson MD melatonin tab 1 mg 1 mg Oral HS PRN Shravan Hudson MD Menthol (Hudson) cough drop 1 Lozenge 1 Lozenge Oral Q2H PRN Shravan Hudson MD NSS infusion Intravenous Continuous Camden Marina DO ondansetron ODT (Zofran) tab 4 mg 4 mg On Tongue Q6H PRN Shravan Hudson MD Or ondansetron (Zofran) inj 4 mg 4 mg IV Push Q6H PRN Shravan Hudson MD oxyCODONE (Oxy IR) tab 10 mg 10 mg Oral Q4H PRN Shravan Hudson MD oxyCODONE (Oxy IR) tab 5 mg 5 mg Oral Q4H PRN Shravan Hudson MD phenol (chlorASEPTIC) spray 3 Egnar 3 Egnar Oral Q4H PRN Shravan Hudson MD Polyethylene Glycol 3350 (Miralax) oral powder 17 g 1 Packet Oral HS Shravan Hudson MD prochlorperazine (Compazine) tab 10 mg 10 mg Oral Q6H PRN Shravan Hudson MD Or prochlorperazine (Compazine) inj 10 mg 10 mg IV Push Q6H PRN Shravan Hudson MD senna (Senokot) 2 Tablet 2 Tablet Oral Daily(AM) Shravan Hudson MD Simethicone (Mylicon) chew tab 80 mg 80 mg Oral Q6H PRN Shravan Hudson MD LABS: CHEMISTRY: BUN, Creatinine, GFR Estimated, Sodium, Potassium, Chloride, Carbon Dioxide, Glucose, Calcium (see below for most recent value): Lab Results Component Value Date/Time BUN 14 05/10/2023 05:35 AM BUN 16 10/27/2019 10:00 AM CREAT 1.0 05/10/2023 05:35 AM CREAT 0.9 10/27/2019 10:00 AM GFRESTIMATED >60.0 10/27/2019 10:00 AM NA 140 05/10/2023 05:35 AM NA 143 10/27/2019 10:00 AM POTASSIUM 4.2 05/10/2023 05:35 AM POTASSIUM 4.2 10/27/2019 10:00 AM CL 110 (H) 05/10/2023 05:35 AM CL 105 10/27/2019 10:00 AM CO2 22 05/10/2023 05:35 AM CO2 28 10/27/2019 10:00 AM CA 7.9 (L) 05/10/2023 05:35 AM CA 9.3 10/27/2019 10:00 AM BLOOD COUNT: WBC, Hgb, Platelets (see below for most recent value): Lab Results Component Value Date/Time WBC 3.75 (L) 05/10/2023 05:35 AM WBC 4.03 11/13/2019 11:29 AM HGB 9.2 (L) 05/10/2023 05:35 AM HGB 13.6 12/08/2021 12:00 AM HGB 13.6 12/01/2021 12:00 AM PLT 128 (L) 05/10/2023 05:35 AM PLT 313 11/13/2019 11:29 AM CULTURES: Lab Results Component Value Date/Time CULTURE LESS THAN 10,000 COLONIES/ML MIXED NORMAL LÓPEZ 10/27/2019 10:12 AM IMAGING: No imaging results in the last 72 hours ASSESSMENT: 73-year-old female status post open anterior pelvic exenteration, bilateral pelvic lymph node dissection, 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 PLAN: - advanced to regular diet, continue. IMPACT supplements. 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 - Bowel regimen: senna, miralax. Entereg until bowl fx - Glucose: NA - Abx: periop cefoxitin - MEDICAL SOCIAL WORKER meds: reviewed, restarted as appropriate. Vesicare discontinued. - Encourage IS, OOB and ambulation - Dispo: med/surg Patient to be discussed with Dr. Alicia Mahajan MD 05/10/2023 7:28 AM Associated attestation - Saul Vargas MD - 05/10/2023 3:31 PM EDT I saw and evaluated the patient today. I have reviewed the trainee note and agree. * Care Plan - Celia Prieto RN - 05/10/2023 5:20 AM EDT Problem: Pain & Impaired Comfort Goal: Patient's pain & discomfort is manageable. Outcome: Progressing Clinical Goal(s): Pt. will have adequate pain relief this shift (05/10/23 0000) Possible barriers to meeting goal(s)/advancing plan of care: recent extensive abdominal surgery Stability of the patient: Moderately stable - low risk of patient condition declining or worsening Summary regarding today's goal(s): Pt. States minimal discomfort in abdomen Recommendations: continue to assess pain level, tylenol and oxycodone * Ancillary Progress Note - Kenneth Shelton RN - 05/09/2023 9:18 AM EDT HOME HEALTH/HOSPICE REFERRAL FORM CARE MANAGEMENT [facility] [address] Referred By: Julianne Cormier RN Admission Date: 05/08/2023 Discharge Date: Discharge Time: Start Date: 05/14/2023 Agency Referred To: [facility] PATIENT INFORMATION: Name: Linsey Estrella [address]: [address] [place] [id number] : 1950 (home) SSN: [id number] County: [place] Caregiver Name: Relationship: Phone: Emergency Contacts: Extended Emergency Contact Information Primary Emergency Contact: Himanshu Estrella [place] Mobile Relation: Spouse Preferred language: Slovak Scrap Metal Collector needed? No Secondary Emergency Contact: Carolyn Estrella Mobile Relation: Adult Child Preferred language: Slovak Scrap Metal Collector needed? No MEDICAL INFORMATION: Principal Diagnosis: Malignant neoplasm of dome of urinary bladder Other Diagnosis: See attached History and Physical Surgery and Dates: Past Surgical History: Procedure Laterality Date CYSTOSCOPY/TREAT MINOR LESION(S) N/A 01/09/2021 CYSTOURETHROSCOPY WITH FULGURATION MINOR BLADDER TUMOR performed by Chris Royal MD at [facility] CYSTOSCOPY/TREAT MINOR LESION(S) N/A 06/05/2021 CYSTOURETHROSCOPY WITH FULGURATION MINOR BLADDER TUMOR performed by Chris Royal MD at [facility] CYSTOSCOPY/TREAT SML BLADDER TUMOR N/A 02/04/2023 CYSTOURETHROSCOPY WITH FULGURATION SMALL BLADDER TUMOR [facility] DENT[facility] SURGERY PROCEDURE NEC INCISION OF [place], PLANNED Left 02/04/2017 TRACHEOSTOMY PLANNED performed by Nick Singh DO at OR [facility] INFORMATION 02/04/2017 never had a trach INFORMATION 1989 kidney stone removal LAPARO REMOVE K/URETER Left 02/01/2021 LAPAROSCOPIC NEPHRECTOMY TOTAL URETERECTOMY performed by Chris Royal MD at OR [facility] LARYNGOSCOPY, VOCAL CORD EXCISION/STRIPPING Left 02/04/2017 LARYNGOSCOPY DIRECT STRIPPING VOCAL CORD WITH MICROSCOPE performed by Nick Singh DO at OR [facility] REPAIR INITIAL INGUINAL HERNIA REDUCIBLE AGE 5 OR MORE 02/18/1999 Diet: Adults: As tolerated Allergies: Penicillins, Pollen, and Ragweed Isolation Type: None Activity Restrictions: Activity as tolerated Isolation For: None HOME CARE ORDERS: (Discipline and Frequency): retirement for general assessment and evaluation, vital signs, medication teaching and compliance. Ostomy Care/teaching Lab work as ordered Medications Dose, Frequency, & Route: Refer to Physician's Discharge Instructions Equipment and Supplies: N/A Ordering Physician and Contact Information: Dr. Osvaldo Vargas Comments: N/A PCP: PCP: NICHOLE LIZARRAGA [address] [address] [phone] D/C Physician: Dr. Osvaldo Vargas Insurance: See attached facesheet. * Ancillary Progress Note - Julianne Cormier RN - 05/09/2023 9:13 AM EDT CARE MANAGEMENT - ADULT INITIAL SCREENING [address] [address] Name: Linsey [address]rella [address] Date: 05/09/2023 Time: 9:13 AM Discussed patient with the interdisciplinary care team. This Administration Physician performed a chart review and spoke to patient's via phone to complete admission screen and assessed needs for transition planning. The intensive care nurse role and services were explained and emotional support was provided. Chief Complaint: No chief complaint on file. Prior Living Arrangements What was your living situation prior to admission/observation?: Independently;With Spouse ([phone]) Living Quarters: House (05/09/23907) Number of steps to enter living quarters:: 3 (05/09/23907) Do you have serious difficulty walking or climbing stairs? (5 years old or older): No (05/08/231835) History of falling: No (05/09/23819) Prior Level of Functioning Describe the patient's ability prior to admission/observation to perform ADLs: Performs independently (05/09/23907) Describe the patient's mobility status prior to admission: Patient ambulates independently (05/09/23907) Patient uses assistive device: No (05/09/23907) Caregiver Information Patient Contacts Name Relation Home Work Mobile Himanshu Estrella Spouse [phone] Carolyn Estrella Adult Child [phone] Risk Stratification/Psychosocial/Care Gaps Risk Stratification Psycho Social / Medical Concerns Identified: Adjustment to illness/injury;Multiple Comorbidities (05/09/23907) OBRA or OPTIONS needed for placement: No (05/09/23907) Readmission Risk Score: 15.99 (05/09/23 0801) AM-PAC Score With Stairs : 18 (05/08/23 2209) Prior to Admission Services Services Prior to Admission MEDICAL SOCIAL WORKER Services (Services received within the last 30 days with exception, Psych within last two years): N/A (05/09/23907) [place] Dept. of Aging (PDA) Waiver Program: N/A (05/09/23[address]) MEDICAL SOCIAL WORKER Transportation (Services received within the last 30 days): Patient drives self (05/09/23907) Outpatient Administration Physician: No care steam plant operator to display Patient/Family Expectations: Patient currently lives at home with her and is independent with ADL's. 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 Patient lives in a two story house with 3 SRI and a bathroom on entrance level. Denies DME/HH/SNF/IRF. She uses [facility] in [place]. Plans to return home when medically stable. Patient s/p open anterior pelvic exenteration, B/L pelvic node dissection and ileal conduit urinarydiversion on 05/08/23. Spoke to patient via phone who is agreeable to home health at d/c. DIRECTOR OF VOCATIONAL TRAINING placing referrals. CM continue to follow for evolving needs. For further screening information, please refer to the Care Management flow document. * Progress Notes - Post-Op Global - Shravan Hudson MD - 05/09/2023 7:07 AM EDT PROGRESS NOTE - Urology [facility]-[address] [address] Name: Linsey Estrella Location: [facility] G205/B Date: 05/09/2023 Time: 7:09 AM SUBJECTIVE: Afebrile, vitals are stable. No acute overnight events. Minimal discomfort this morning. Denies nausea, vomiting, chest pain, shortness of breath. Patient would like to have food She did ambulate yesterday. No flatus or bowel movement Output: Urostomy 1500 mL Drain 340 mL PHYSICAL EXAMINATION: Most Recent Vital Signs: BP: 100 mmHg/49 mmHg (05/09/23356) Pulse: 76 (05/09/23356) Temp: 37.5 C (05/09/23356) Temp Summary: Temp Min: 36 C (96.8 F) Max: 37.5 C (99.5 F) SpO2: 97 % (05/09/23356) O2 flow rate: 10 L/MIN (05/08/23 1555) Supplemental O2 Delivery: Room Air, None (05/09/23356) Vital Signs Last 24 Hours: Systolic BP: Most Recent Systolic BP Av.5 mmHg Min: 99 mmHg Max: 130 mmHg Temperature: Most Recent Temperature Av.8 C Min: 36 C Max: 37.5 C Pulse: Pulse Av.1 Min: 76 Max: 91 Respirations: Resp Av.3 Min: 10 Max: 21 SpO2: SpO2 Av.8 % Min: 95 % Max: 100 % Intake/Output Summary (Last 24 hours) at 05/09/2023 0709 Last data filed at 05/09/2023 0643 Gross per 24 hour Intake 2997.16 ml Output 3015 ml Net -17.84 ml General: awake, alert and responsive Heart:: Regular rate Chest: Normal WOB Abdomen: soft, nondistended, appropriately tender to palpation. Incision clean, dry, intact with Dermabond. Drain with serosanguineous fluid Extremities: no deformities : right lower quadrant urostomy pink and healthy with clot overlying. Urine is clear, fruit punchin bag. CURRENT HOSPITAL MEDICATIONS: Note that completed medications (per the MAR) continue to display for 24 hours. Ordered medicationsto be given in the future also display. Current Facility-Administered Medications Medication Dose Route Frequency Provider Acetaminophen (Tylenol) tab 975 mg 975 mg Oral Q8H Shravan Hudson MD calcium CARBonate (Tums E-X) tab CHEW 750 mg 750 mg Oral Q6H PRN Shravan Hudson MD cefOXitin in dextrose (Mefoxin) ivpb 2 g 2 g IV Piggyback Q6H Shravan Hudson MD Famotidine (Pepcid) tab 20 mg 20 mg Oral Daily 1900 Shravan Hudson MD fluticasone (Flonase) nasal inhaler 2 Egnar 2 Egnar Each Nostril Daily(AM) Shravan Hudson MD hEParin inj 5,000 Units 5,000 Units Subcutaneous Q8H Shravan Hudson MD IMPACT AR liquid 250 mL Oral BID (AM/PM meals) Shravan Hudson MD Loratadine (Claritin) tab 10 mg 10 mg Oral HS Shravan Hudson MD melatonin tab 1 mg 1 mg Oral HS PRN Shravan Hudson MD Menthol (Hudson) cough drop 1 Lozenge 1 Lozenge Oral Q2H PRN Shravan Hudson MD NSS infusion Intravenous Continuous Camden Marina DO ondansetron ODT (Zofran) tab 4 mg 4 mg On Tongue Q6H PRN Shravan Hudson MD Or ondansetron (Zofran) inj 4 mg 4 mg IV Push Q6H PRN Shravan Hudson MD oxyCODONE (Oxy IR) tab 10 mg 10 mg Oral Q4H PRN Shravan Hudson MD oxyCODONE (Oxy IR) tab 5 mg 5 mg Oral Q4H PRN Shravan Hudson MD phenol (chlorASEPTIC) spray 3 Egnar 3 Egnar Oral Q4H PRN Shravan Hudson MD Polyethylene Glycol 3350 (Miralax) oral powder 17 g 1 Packet Oral HS Shravan Hudson MD prochlorperazine (Compazine) tab 10 mg 10 mg Oral Q6H PRN Shravan Hudson MD Or prochlorperazine (Compazine) inj 10 mg 10 mg IV Push Q6H PRN Shravan Hudson MD senna (Senokot) 2 Tablet 2 Tablet Oral Daily(AM) Shravan Hudson MD Simethicone (Mylicon) chew tab 80 mg 80 mg Oral Q6H PRN Shravan Hudson MD LABS: CHEMISTRY: BUN, Creatinine, GFR Estimated, Sodium, Potassium, Chloride, Carbon Dioxide, Glucose, Calcium (see below for most recent value): Lab Results Component Value Date/Time BUN 17 05/08/2023 04:24 PM BUN 16 10/27/2019 10:00 AM CREAT 1.1 (H) 05/08/2023 04:24 PM CREAT 0.9 10/27/2019 10:00 AM GFRESTIMATED >60.0 10/27/2019 10:00 AM NA 140 05/08/2023 04:24 PM NA 143 10/27/2019 10:00 AM POTASSIUM 4.1 05/08/2023 04:24 PM POTASSIUM 4.2 10/27/2019 10:00 AM CL 106 05/08/2023 04:24 PM CL 105 10/27/2019 10:00 AM CO2 21 (L) 05/08/2023 04:24 PM CO2 28 10/27/2019 10:00 AM CA 8.6 05/08/2023 04:24 PM CA 9.3 10/27/2019 10:00 AM BLOOD COUNT: WBC, Hgb, Platelets (see below for most recent value): Lab Results Component Value Date/Time WBC 2.66 (L) 05/08/2023 08:54 PM WBC 4.03 11/13/2019 11:29 AM HGB 8.9 (L) 05/08/2023 08:54 PM HGB 13.6 12/08/2021 12:00 AM HGB 13.6 12/01/2021 12:00 AM PLT 108 (L) 05/08/2023 08:54 PM PLT 313 11/13/2019 11:29 AM CULTURES: Lab Results Component Value Date/Time CULTURE LESS THAN 10,000 COLONIES/ML MIXED NORMAL LÓPEZ 10/27/2019 10:12 AM IMAGING: No imaging results in the last 72 hours ASSESSMENT: 73-year-old female status post open anterior pelvic exenteration, bilateral pelvic lymph node dissection, 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 Doing well postoperatively PLAN: - advanced to clear liquid diet. IMPACT supplement. Enetereg - follow up heme recommendations due to existing neutropenia - Ostomy consult - Pain control: tylenol ATC, oxycodone prn - Nausea control: Zofran/compazine prn - IV fluids: NSS@100 - Diet: advance to clear liquid diet - Labs: reviewed - Imaging: reviewed - Love/drains/lines: Maintain love, ureteral stent x1, puneet drain - DVT ppx: heparin, SCDs - Bowel regimen: senna, miralax. Entereg until bowl fx - Glucose: NA - Abx: periop cefoxitin - MEDICAL SOCIAL WORKER meds: reviewed, restarted as appropriate - Encourage IS, OOB and ambulation - Dispo: med/surg Patient to be discussed with Dr. Alicia Hudson MD Resident [facility] [phone] Associated attestation - Saul Vargas MD - 05/09/2023 4:11 PM EDT I saw and evaluated the patient today. I have reviewed the trainee note and agree. * Care Plan - Celia Prieto RN - 05/09/2023 3:21 AM EDT Problem: Pain & Impaired Comfort Goal: Patient's pain & discomfort is manageable. Outcome: Progressing Clinical Goal(s): Pt. will have adequate pain relief this shift (05/08/23 2300) Possible barriers to meeting goal(s)/advancing plan of care: weakness, POD #1 Stability of the patient: Moderately stable - low risk of patient condition declining or worsening Summary regarding today's goal(s): Met: Pt. States pain is adequately controlled with scheduled tylenol Recommendations: Continues to assess pain with q4H vitals, scheduled tylenol, offer prn oxycodone * Respiratory Progress Note - Tiana Martinez RRT - 05/08/2023 6:09 PM EDT PATIENT DRIVEN PROTOCOL - Respiratory Care Services [address] [address] Name: Linsey Estrella Location: [facility] G2/B Date: 05/08/2023 Time: 6:09 PM Patient Driven Protocol Summary: Initial evaluation performed. This Treatment Plan and medications will be reviewed by the Primary Care Team for any contraindications. Respiratory Care Treatment Plan Pulmonary Volume Expansion Therapy: Deep Breathing/Cough PRN to enhance mobilization of secretions and prevent or treat alveolar consolidation and atelectasis. . The patient will be re-evaluated: No [...] Status: 0 - No History Surgical Status: 1 - General Surgery Chest X-Ray: 0 - Not Performed or performed greater than 3 days ago Assessment Score: 1 Patient Assessment Clinical Findings Respiratory Pattern: 0 - RR 12 - 20; Patient only gets breathless with strenuous exercise. Breath Sounds: 2 - Diminished bilaterally Cough Effectiveness: 0 - Strong non-productive Sputum Production: 0 - No sputum production Level of Activity: 1 - Ambulatory with assist O2 needed to keep SpO2 greater than or equal to 92%: 0 - Room Air Assessment Score: 3 Total Assessment Score: 4 Breath Sounds: Inspiratory and expiratory diminished bilaterally.. Cough and Sputum: No cough was present.. CXR: not performed Vital Signs: Resp: 16 (05/08/23 1730) Pulse: 86 (05/08/23 1730) Temp: 36.8 C (98.2 F) (05/08/23 1730) BP: 115/62 (05/08/23 1730) SpO2: 97 % (05/08/23 173) Primary Service: Urology. Admitting Diagnosis: 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) [C67.1] Pulmonary Diagnosis: no pulmonary hx . Prescriptions/Home Medications/Durable Medical Equipment: no. Recommended New home medications/durable medical equipment/outpatient pulmonary/sleep referral no. documented in this encounter Plan of Treatment Upcoming Encounters Date Type Department Care Team (Late st Contact Info) Description 06/04/2023 9:30 AM EDT Office Visit Urology, [place] [address] [place] [address] Saul Vargas MD [address] [place] [address] 06/10/2023 10:30 AM EDT Office Visit Urology, [facility] [address] [place] [address] Chris Royal MD [address] [facility] [address] [place] [address] 06/24/2023 10:40 AM EDT Office Visit Nephrology, [facility] [address] [facility] [place] [address] Demetrius Sherman MD [address] [facility] [place] [address] 07/25/2023 11:15 AM EDT Office Visit Hematology/Oncology [facility] [address] [facility] [address] Aguilar Lizarraga MD [address] [facility] [place] [address] 11/12/2023 9:20 AM EDT Office Visit General Internal Medicine [facility] [address] [facility] [place] [address] Nichole Lizarraga MD [address] [facility] [place] [address] Pending Results Name Type Priority Associated Diagnoses Date /Time SURGICAL PATHOLOGY Pathology Routine 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) 05/08/2023 12:17 PM EDT Scheduled Orders Name Type Priority Associated Diagnoses Orde r Schedule SURGICAL PATHOLOGY Pathology Routine 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) Release Upon Ordering for 1 Occurrences starting 05/08/2023, 1 completed Health Maintenance Due Date Last Done Comments [...] Additional history exists CKD PHOS USE SMARTSET 53527 05/10/202404/19, 03/13/2022, 11/09/2021 CKD HGB USE SMARTSET 25808 05/12/202405/12, 05/13/2023, 05/12/2023, Additional history exists DXA [...] Procedure Name Priority Date/Time Associated Diagnosis Comments CREATININE, BODY FLUID STAT 8:47 AM EDT DIFFERENTIAL, AUTOMATED Routine 05/13/2023 6:27 AM EDT BASIC METABOLIC PANEL Routine 05/13/2023 6:27 AM EDT CBC Routine 05/13/2023 6:27 AM EDT CBC Routine 05/13/2023 6:27 AM EDT DIFFERENTIAL, TECHNOLOGIST REVIEW Routine 05/13/2023 6:27 AM EDT DIFFERENTIAL, AUTOMATED Routine 05/12/2023 4:54 AM EDT BASIC METABOLIC PANEL Routine 05/12/2023 4:54 AM EDT CBC Routine 05/12/2023 4:54 AM EDT CBC Routine 05/12/2023 4:54 AM EDT DIFFERENTIAL, TECHNOLOGIST REVIEW Routine 05/12/2023 4:54 AM EDT BASIC METABOLIC PANEL STAT 05/11/2023 3:21 PM EDT PHOSPHORUS STAT 05/11/2023 3:21 PM EDT MAGNESIUM STAT 05/11/2023 3:21 PM EDT XR ABDOMEN 1 VIEW STAT 05/11/2023 2:4 3 PM EDT XR CHEST 1 VIEW STAT 05/11/2023 2:43 PM EDT CREATININE, BODY FLUID STAT 11:24 AM EDT DIFFERENTIAL, AUTOMATED Routine 05/11/2023 5:00 AM EDT BASIC METABOLIC PANEL Routine 05/11/2023 5:00 AM EDT CBC Routine 05/11/2023 5:00 AM EDT CBC Routine 05/11/2023 5:00 AM EDT DIFFERENTIAL, TECHNOLOGIST REVIEW Routine 05/11/2023 5:00 AM EDT DIFFERENTIAL, AUTOMATED Routine 05/10/2023 5:35 AM EDT BASIC METABOLIC PANEL Routine 05/10/2023 5:35 AM EDT CBC Routine 05/10/2023 5:35 AM EDT CBC Routine 05/10/2023 5:35 AM EDT DIFFERENTIAL, TECHNOLOGIST REVIEW Routine 05/10/2023 5:35 AM EDT CLINICIAN PERIPHERAL BLOOD SLIDE REQUEST Add-on 05/09/2023 7:17 AM EDT DIFFERENTIAL, AUTOMATED Routine 05/09/2023 7:17 AM EDT BASIC METABOLIC PANEL Routine 05/09/2023 7:17 AM EDT CBC Routine 05/09/2023 7:17 AM EDT CBC Routine 05/09/2023 7:17 AM EDT DIFFERENTIAL, TECHNOLOGIST REVIEW Routine 05/09/2023 7:17 AM EDT DIFFERENTIAL, AUTOMATED STAT 05/08/2023 8:54 PM EDT CBC STAT 05/08/2023 8:54 PM EDT CBC STAT 05/08/2023 8:54 PM EDT DIFFERENTIAL, TECHNOLOGIST REVIEW Routine 05/08/2023 8:54 PM EDT SARS-COV-2 (COVID-19), NAAT STAT 05/08/2023 4:25 PM EDT BASIC METABOLIC PANEL STAT 05/08/2023 4:24 PM EDT CBC STAT 05/08/2023 4:24 PM EDT GLUCOSE METER, POINT OF CARE CORNELIO 05/08/2023 3:04 PM EDT WHOLE BLOOD PROFILE, ARTERIAL STAT 05/08/2023 12:13 PM EDT GLUCOSE METER, POINT OF CARE CORNELIO 05/08/2023 9:39 AM EDT RADICAL HYSTERECTOMY 05/08/2023 9:28 AM EDT 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) REMOVE BLADDER,REVISE URINARY TRACT 05/08/2023 9:28 AM EDT 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) HC COMPATIBILITY ELECTRONIC CROSSMATCH STAT 05/08/2023 8:50 AM EDT documented in this encounter Results * CREATININE, BODY FLUID (05/13/2023 8:47 AM EDT) Creatinine, Body Fluid 1.0 mg/dL 05/13/2023 9:17 AM EDT LABORATORY C Comment: The reference interval(s) and other method performance specifications may not be available for this body fluid. Comparison of this result with the concentration in the blood, serum, or plasma is recommended. The test result must be integrated into the clinical context for interpretation. Please refer to test catalog ([email or web address]) for additional interpretive information. This test was developed and its performance characteristics determined by [employer]. It has not been cleared or approved by the [place] Food and Drug Administration. Body Fluid Fluid specimen / Unknown Non-blood Collection / Unknown 05/13/2023 8:47 AM EDT 05/13/2023 8:54 AM EDT Yesika Mahajan MD LAB FLUID AND STOOL ORDERABLES Performing Organization Address City/State/[facility] Co de Phone Number LAB[facility]ATORY [facility] [address] [place] [address] * (ABNORMAL) DIFFERENTIAL, TECHNOLOGIST REVIEW (05/13/2023 6:27 AM EDT) WBC 3.98(L) 4.00 - 10.80 K/uL 05/13/2023 8:51 AM EDT [facility] Neutrophils % 14.0(L) 40.0 - 75.0 % 05/13/2023 8:51 AM EDT [facility] Lymphocytes % 65.0(H) 18.0 - 42.0 % 05/13/2023 8:51 AM EDT LAB[facility] Monocytes % 8.0 1.0 - 11.0 % 05/13/2023 8:51 AM EDT [facility] Eosinophils % 11.0(H) 0.0 - 6.0 % 05/13/2023 8:51 AM EDT [facility] Basophils % 2.0 0.0 - 2.0 % 05/13/2023 8:51 AM EDT [facility] Absolute Neutrophils 0.56(L) 1.80 - 7.70 K/uL 05/13/2023 8:51 AM EDT LAB[facility] Absolute Lymphocytes 2.59 1.00 - 4.80 K/uL 05/13/2023 8:51 AM EDT LAB[facility] Absolute Monocytes 0.32 0.00 - 1.10 K/uL 05/13/2023 8:51 AM EDT LAB[facility] Absolute Eosinophils 0.44 0.00 - 0.70 K/uL 05/13/2023 8:51 AM EDT LAB[facility]ATORY [facility] Absolute Basophils 0.08 0.00 - 0.20 K/uL 05/13/2023 8:51 AM EDT [facility] Dohle Bodies Present(A ) None Seen 05/13/2023 8:51 AM EDT [facility] Blood Venous blood specimen / Unknown Venipuncture / Unknown 05/13/2023 6:27 AM EDT 05/13/2023 6:35 AM EDT Yesika Mahajan MD LAB BLOOD ORDERABLES Performing Organization Address City/[facility]/ZIP Co de Phone Number [facility] [address] [place] [address] * DIFFERENTIAL, AUTOMATED (05/13/2023 6:27 AM EDT) Blood Venous blood specimen / Unknown Venipuncture / Unknown 05/13/2023 6:27 AM EDT 05/13/2023 6:35 AM EDT Yesika Mahajan MD LAB BLOOD ORDERABLES Performing Organization Address [facility] Co de Phone Number [facility] [address] [place] [address] * (ABNORMAL) CBC (05/13/2023 6:27 AM EDT) WBC 3.98(L) 4.00 - 10.80 K/uL 05/13/2023 6:53 AM EDT LAB[facility]ATORY [facility] RBC 3.28 3.85 - 5.15 M/uL 05/13/2023 6:53 AM EDT LAB[facility]ORY [facility] HGB 9.6(L) 12.0 - 15.3 g/dL 05/13/2023 6:53 AM EDT [facility] HCT 30.8(L) 36.0 - 45.2 % 05/13/2023 6:53 AM EDT [facility] MCV 93.9 81.5 - 97.5 fL 05/13/2023 6:53 AM EDT LAB[facility]ORY [facility] MCH 29.3 27.0 - 34.0 pg 05/13/2023 6:53 AM EDT [facility] MCHC 31.2 32.0 - 36.0 g/dL 05/13/2023 6:53 AM EDT LAB[facility]ORY [facility] RDW 15.5 11.5 - 15.5 % 05/13/2023 6:53 AM EDT LABORATORY C PLT 190 140 - 400 K/uL 05/13/2023 6:53 AM EDT LABORATORY C MPV 11.2 6.6 - 11.1 fL 05/13/2023 6:53 AM EDT LABORATORY [facility] nRBCs 0 <=0 /100 WBCs 05/13/2023 6:53 AM EDT LAB[facility] Blood Venous blood specimen / Unknown Venipuncture / Unknown 05/13/2023 6:27 AM EDT 05/13/2023 6:35 AM EDT Yesika Mahajan MD LAB BLOOD ORDERABLES LABORATORY [facility] [address] [place] [address] * (ABNORMAL) BASIC METABOLIC PANEL (05/13/2023 6:27 AM EDT) BUN 25(H) 6 - 20 mg/dL 05/13/2023 7:07 AM EDT LAB[facility]ORY [facility] Creatinine 1.0 0.5 - 1.0 mg/dL 05/13/2023 7:07 AM EDT LAB[facility]ORY [facility] Estimated Glomerular Filtration Rate 58(L) >=60 mL/min 05/13/2023 7:07 AM EDT [facility] Comment:eGFR is calculated b ased on the CKD-EPI 2020 equation Sodium 137 135 - 146 mmol/L 05/13/2023 7:07 AM EDT LAB[facility]ORY [facility] Potassium 4.3 3.5 - 5.1 mmol/L 05/13/2023 7:07 AM EDT LAB[facility] Chloride 106 98 - 107 mmol/L 05/13/2023 7:07 AM EDT LAB[facility] CO2 24 22 - 32 mmol/L 05/13/2023 7:07 AM EDT LAB[facility] Anion Gap 7 7 - 15 mmol/L 05/13/2023 7:07 AM EDT LAB[facility] Glucose 99 70 - 120 mg/dL 05/13/2023 7:07 AM EDT LAB[facility]ORY [facility] Calcium 8.2(L) 8.4 - 10.2 mg/dL 05/13/2023 7:07 AM EDT [facility] Blood Venous blood specimen / Unknown Venipuncture / Unknown 05/13/2023 6:27 AM EDT 05/13/2023 6:35 AM EDT Yesika Mahajan MD LAB BLOOD ORDERABLES [facility] [address] [place] [address] * (ABNORMAL) DIFFERENTIAL, TECHNOLOGIST REVIEW (05/12/2023 4:54 AM EDT) WBC 3.67(L) 4.00 - 10.80 K/uL 05/12/2023 5:59 AM EDT LAB[facility] Neutrophils % 29.0(L) 40.0 - 75.0 % 05/12/2023 5:59 AM EDT LAB[facility] Lymphocytes % 40.0 18.0 - 42.0 % 05/12/2023 5:59 AM EDT LAB[facility]ORY [facility] Monocytes % 10.0 1.0 - 11.0 % 05/12/2023 5:59 AM EDT LAB[facility] Eosinophils % 19.0(H) 0.0 - 6.0 % 05/12/2023 5:59 AM EDT LAB[facility] Basophils % 1.0 0.0 - 2.0 % 05/12/2023 5:59 AM EDT LAB[facility]ORY [facility] Blasts % 1.0(H) <=0.0 % 05/12/2023 5:59 AM EDT LAB[facility]ATORY [facility] Absolute Neutrophils 1.06(L) 1.80 - 7.70 K/uL 05/12/2023 5:59 AM EDT LAB[facility]ATORY [facility] Absolute Lymphocytes 1.47 1.00 - 4.80 K/uL 05/12/2023 5:59 AM EDT LAB[facility]ATORY [facility] Absolute Monocytes 0.37 0.00 - 1.10 K/uL 05/12/2023 5:59 AM EDT LAB[facility]ATORY [facility] Absolute Eosinophils 0.70 0.00 - 0.70 K/uL 05/12/2023 5:59 AM EDT LAB[facility]ATORY [facility] Absolute Basophils 0.04 0.00 - 0.20 K/uL 05/12/2023 5:59 AM EDT LAB[facility]ATORY [facility] Absolute Blasts 0.04(H) <=0.00 K/uL 05/12/2023 5:59 AM EDT LAB[facility]ATORY [facility] Dohle Bodies Present(A ) None Seen 05/12/2023 5:59 AM EDT LAB[facility]ORY [facility] Reactive Lymphocytes Present(A ) None Seen 05/12/2023 5:59 AM EDT LAB[facility] Blood Venous blood specimen / Unknown Venipuncture / Unknown 05/12/2023 4:54 AM EDT 05/12/2023 5:04 AM EDT Yesika Mahajan MD LAB BLOOD ORDERABLES Performing Organization Address [facility] de Phone Number LAB[facility]ATORY [facility] [address] [place] [address] * DIFFERENTIAL, AUTOMATED (05/12/2023 4:54 AM EDT) Blood Venous blood specimen / Unknown Venipuncture / Unknown 05/12/2023 4:54 AM EDT 05/12/2023 5:04 AM EDT Yesika Mahajan MD LAB BLOOD ORDERABLES Performing Organization Address [facility] Co de Phone Number LAB[facility]ATORY [facility] [address] [place] [address] * (ABNORMAL) CBC (05/12/2023 4:54 AM EDT) WBC 3.67(L) 4.00 - 10.80 K/uL 05/12/2023 5:23 AM EDT LAB[facility]ORY [facility] RBC 3.31 3.85 - 5.15 M/uL 05/12/2023 5:23 AM EDT LAB[facility]ORY [facility] HGB 9.9(L) 12.0 - 15.3 g/dL 05/12/2023 5:23 AM EDT LAB[facility]ORY [facility] HCT 30.1(L) 36.0 - 45.2 % 05/12/2023 5:23 AM EDT LAB[facility]ORY [facility] MCV 90.9 81.5 - 97.5 fL 05/12/2023 5:23 AM EDT LAB[facility]ORY [facility] MCH 29.9 27.0 - 34.0 pg 05/12/2023 5:23 AM EDT LAB[facility] MCHC 32.9 32.0 - 36.0 g/dL 05/12/2023 5:23 AM EDT LAB[facility]ORY [facility] RDW 15.5 11.5 - 15.5 % 05/12/2023 5:23 AM EDT LAB[facility]ATORY [facility] PLT 185 140 - 400 K/uL 05/12/2023 5:23 AM EDT LAB[facility]ORY [facility] MPV 11.2 6.6 - 11.1 fL 05/12/2023 5:23 AM EDT LAB[facility] nRBCs 0 <=0 /100 WBCs 05/12/2023 5:23 AM EDT LAB[facility] Blood Venous blood specimen / Unknown Venipuncture / Unknown 05/12/2023 4:54 AM EDT 05/12/2023 5:04 AM EDT Yesika Mahajan MD LAB BLOOD ORDERABLES LABORATORY [facility] [address] [place] [address] * (ABNORMAL) BASIC METABOLIC PANEL (05/12/2023 4:54 AM EDT) BUN 22(H) 6 - 20 mg/dL 05/12/2023 5:33 AM EDT LAB[facility] Creatinine 0.9 0.5 - 1.0 mg/dL 05/12/2023 5:33 AM EDT LAB[facility] Estimated Glomerular Filtration Rate 69 >=60 mL/min 05/12/2023 5:33 AM EDT LAB[facility]ORY [facility] Comment:eGFR is calculated b ased on the CKD-EPI 2020 equation Sodium 137 135 - 146 mmol/L 05/12/2023 5:33 AM EDT LAB[facility]ORY [facility] Potassium 4.1 3.5 - 5.1 mmol/L 05/12/2023 5:33 AM EDT LAB[facility] Chloride 108(H) 98 - 107 mmol/L 05/12/2023 5:33 AM EDT LAB[facility] CO2 22 22 - 32 mmol/L 05/12/2023 5:33 AM EDT LAB[facility] Anion Gap 7 7 - 15 mmol/L 05/12/2023 5:33 AM EDT LAB[facility]ORY [facility] Glucose 101 70 - 120 mg/dL 05/12/2023 5:33 AM EDT LAB[facility] Calcium 8.2(L) 8.4 - 10.2 mg/dL 05/12/2023 5:33 AM EDT LAB[facility] Blood Venous blood specimen / Unknown Venipuncture / Unknown 05/12/2023 4:54 AM EDT 05/12/2023 5:04 AM EDT Yesika Mahajan MD LAB BLOOD ORDERABLES Performing Organization Address City/[facility] Co de Phone Number LAB[facility]ATORY [facility] [address] [place] [address] * PHOSPHORUS (05/11/2023 3:21 PM EDT) Phosphorus 2.8 2.5 - 4.8 mg/dL 05/11/2023 3:53 PM EDT LAB[facility] Blood Venous blood specimen / Unknown Venipuncture / Unknown 05/11/2023 3:21 PM EDT 05/11/2023 3:26 PM EDT Yeiska Mahajan MD LAB BLOOD ORDERABLES Performing Organization Address [facility] de Phone Number LABORATORY C [address] [place] [address] * MAGNESIUM (05/11/2023 3:21 PM EDT) Magnesium 1.7 1.5 - 2.6 mg/dL 05/11/2023 3:53 PM EDT LABORATORY C Blood Venous blood specimen / Unknown Venipuncture / Unknown 05/11/2023 3:21 PM EDT 05/11/2023 3:26 PM EDT Yesika Mahajan MD LAB BLOOD ORDERABLES Performing Organization Address [facility] de Phone Number LABORATORY [facility] [address] [place] [address] * (ABNORMAL) BASIC METABOLIC PANEL (05/11/2023 3:21 PM EDT) BUN 19 6 - 20 mg/dL 05/11/2023 3:53 PM EDT LAB[facility]ATORY [facility] Creatinine 1.0 0.5 - 1.0 mg/dL 05/11/2023 3:53 PM EDT LAB[facility]ORY [facility] Estimated Glomerular Filtration Rate 62 >=60 mL/min 05/11/2023 3:53 PM EDT LABORATORY C Comment:eGFR is calculated b ased on the CKD-EPI 2020 equation Sodium 140 135 - 146 mmol/L 05/11/2023 3:53 PM EDT LAB[facility] Potassium 4.5 3.5 - 5.1 mmol/L 05/11/2023 3:53 PM EDT LAB[facility] Chloride 107 98 - 107 mmol/L 05/11/2023 3:53 PM EDT LAB[facility] CO2 23 22 - 32 mmol/L 05/11/2023 3:53 PM EDT LABORATORY C Anion Gap 10 7 - 15 mmol/L 05/11/2023 3:53 PM EDT LABORATORY [facility] Glucose 130(H) 70 - 120 mg/dL 05/11/2023 3:53 PM EDT LABORATORY C Calcium 8.7 8.4 - 10.2 mg/dL 05/11/2023 3:53 PM EDT LABORATORY [facility] Blood Venous blood specimen / Unknown Venipuncture / Unknown 05/11/2023 3:21 PM EDT 05/11/2023 3:26 PM EDT Yesika Mahajan MD LAB BLOOD ORDERABLES LABORATORY [facility] [address] [place] [address] * XR CHEST 1 VIEW (05/11/2023 2:43 PM EDT) Anatomical Region Laterality Modality Chest Digital Radiogra phy 05/11/2023 4:03 PM EDT Impressions 05/11/2023 4:00 PM EDT IMPRESSION No acute cardiopulmonary finding. Narrative 05/11/2023 4:00 PM EDT EXAM XR CHEST 1 VIEW - 05/11/2023 2:43 pm HISTORY high volume emesis, POD3 from anterior exenteration COMPARISON CT 02/26/2023, radiograph 01/21/2023 TECHNIQUE AP view of the chest. FINDINGS Support apparatus: Partially visualized right ureteral stent. Similar right upper lobe scarring. No specific consolidation, pleural effusion or pneumothorax. Cardiomediastinal silhouette and pulmonary vasculature likely within normal limits. Procedure Note Giancarlo Vance II, MD - 05/11/2023 EXAM XR CHEST 1 VIEW - 05/11/2023 2:43 pm HISTORY high volume emesis, POD3 from anterior exenteration COMPARISON CT 02/26/2023, radiograph 01/21/2023 TECHNIQUE AP view of the chest. FINDINGS Support apparatus: Partially visualized right ureteral stent. Similar right upper lobe scarring. No specific consolidation, pleuraleffusion or pneumothorax. Cardiomediastinal silhouette and pulmonaryvasculature likely within normal limits. IMPRESSION IMPRESSION No acute cardiopulmonary finding. Yesika Mahajan MD RADIOLOGY (RAD GENER AL) * XR ABDOMEN 1 VIEW (05/11/2023 2:43 PM EDT) Anatomical Region Laterality Modality Abdomen, Pelvis Digital Radiogra phy 05/11/2023 4:02 PM EDT Impressions 05/11/2023 3:59 PM EDT IMPRESSION Likely ileus versus early small bowel obstruction. Added to radiology results pathway communication system at 3:59 pm on 05/11/2023. Narrative 05/11/2023 3:59 PM EDT EXAM XR ABDOMEN 1 VIEW-05/11/2023 2:43 pm HISTORY high volume emesis, POD3 from anterior extenteration COMPARISON CT 01/16/2023, radiograph 03/10/2012 TECHNIQUE AP views of the abdomen. FINDINGS Support apparatus:Right ureteral stent. Surgical clips. Pelvic surgical drain. Mildly gas dilated loops of small bowel. Probable few gas distended loops of large bowel. Degenerative osseous changes. Lung bases are clear. Procedure Note Giancarlo Vance II, MD - 05/11/2023 EXAM XR ABDOMEN 1 VIEW-05/11/2023 2:43 pm HISTORY high volume emesis, POD3 from anterior extenteration COMPARISON CT 01/16/2023, radiograph 03/10/2012 TECHNIQUE AP views of the abdomen. FINDINGS Support apparatus:Right ureteral stent. Surgical clips. Pelvic surgicaldrain. Mildly gas dilated loops of small bowel. Probable few gas distended loopsof large bowel. Degenerative osseous changes. Lung bases are clear. IMPRESSION IMPRESSION Likely ileus versus early small bowel obstruction. Added to radiology results pathway communication system at 3:59 pm on05/11/2023. Yesika Mahajan MD RADIOLOGY (RAD GENER AL) * CREATININE, BODY FLUID (05/11/2023 11:24 AM EDT) Creatinine, Body Fluid 0.9 mg/dL 05/11/2023 12:19 PM EDT LABORATORY [facility] Comment: The reference interval(s) and other method performance specifications may not be available for this body fluid. Comparison of this result with the concentration in the blood, serum, or plasma is recommended. The test result must be integrated into the clinical context for interpretation. Please refer to test catalog ([email or web address]) for additional interpretive information. This test was developed and its performance characteristics determined by [employer]. It has not been cleared or approved by the [place] Food and Drug Administration. Body Fluid Fluid specimen / Unknown Non-blood Collection / Unknown 05/11/2023 11:24 AM EDT 05/11/2023 11:44 AM EDT Yesika Mahajan MD LAB FLUID AND STOOL ORDERABLES LABORATORY [facility] [address] [place] [address] * (ABNORMAL) DIFFERENTIAL, TECHNOLOGIST REVIEW (05/11/2023 5:00 AM EDT) WBC 4.75 4.00 - 10.80 K/uL 05/11/2023 6:15 AM EDT LABORATORY [facility] Neutrophils % 35.0(L) 40.0 - 75.0 % 05/11/2023 6:15 AM EDT LABORATORY [facility] Lymphocytes % 38.0 18.0 - 42.0 % 05/11/2023 6:15 AM EDT LAB[facility]ATORY [facility] Monocytes % 21.0(H) 1.0 - 11.0 % 05/11/2023 6:15 AM EDT LAB[facility]ATORY [facility] Eosinophils % 3.0 0.0 - 6.0 % 05/11/2023 6:15 AM EDT LABORATORY [facility] Basophils % 1.0 0.0 - 2.0 % 05/11/2023 6:15 AM EDT LABORATORY [facility] Myelocytes % 2.0(H) <=0.0 % 05/11/2023 6:15 AM EDT LABORATORY [facility] Absolute Neutrophils 1.66(L) 1.80 - 7.70 K/uL 05/11/2023 6:15 AM EDT LABORATORY [facility] Absolute Lymphocytes 1.81 1.00 - 4.80 K/uL 05/11/2023 6:15 AM EDT LABORATORY [facility] Absolute Monocytes 1.00 0.00 - 1.10 K/uL 05/11/2023 6:15 AM EDT LABORATORY [facility] Absolute Eosinophils 0.14 0.00 - 0.70 K/uL 05/11/2023 6:15 AM EDT LABORATORY [facility] Absolute Basophils 0.05 0.00 - 0.20 K/uL 05/11/2023 6:15 AM EDT LABORATORY [facility] Absolute Myelocytes 0.10(H) <=0.00 K/uL 05/11/2023 6:15 AM EDT LABORATORY [facility] Dohle Bodies Present(A ) None Seen 05/11/2023 6:15 AM EDT LABORATORY [facility] Reactive Lymphocytes Present(A ) None Seen 05/11/2023 6:15 AM EDT LAB[facility]ATORY [facility] Blood Venous blood specimen / Unknown Venipuncture / Unknown 05/11/2023 5:00 AM EDT 05/11/2023 5:31 AM EDT Yesika Mahajan MD LAB BLOOD ORDERABLES LAB[facility]ATORY [facility] [address] [place] [address] * DIFFERENTIAL, AUTOMATED (05/11/2023 5:00 AM EDT) Blood Venous blood specimen / Unknown Venipuncture / Unknown 05/11/2023 5:00 AM EDT 05/11/2023 5:31 AM EDT Yesika Mahajan MD LAB BLOOD ORDERABLES LABORATORY [facility] [address] [place] [address] * (ABNORMAL) CBC (05/11/2023 5:00 AM EDT) [facility] WBC 4.75 4.00 - 10.80 K/uL 05/11/2023 5:48 AM EDT LABORATORY [facility] RBC 3.22 3.85 - 5.15 M/uL 05/11/2023 5:48 AM EDT LABORATORY [facility] HGB 9.6(L) 12.0 - 15.3 g/dL 05/11/2023 5:48 AM EDT LABORATORY [facility] HCT 29.9(L) 36.0 - 45.2 % 05/11/2023 5:48 AM EDT LABORATORY [facility] MCV 92.9 81.5 - 97.5 fL 05/11/2023 5:48 AM EDT LABORATORY [facility] MCH 29.8 27.0 - 34.0 pg 05/11/2023 5:48 AM EDT LABORATORY GM MCHC 32.1 32.0 - 36.0 g/dL 05/11/2023 5:48 AM EDT LABORATORY [facility] RDW 15.5 11.5 - 15.5 % 05/11/2023 5:48 AM EDT LABORATORY GM PLT 157 140 - 400 K/uL 05/11/2023 5:48 AM EDT LABORATORY GM MPV 12.2 6.6 - 11.1 fL 05/11/2023 5:48 AM EDT LABORATORY [facility] nRBCs 0 <=0 /100 WBCs 05/11/2023 5:48 AM EDT LABORATORY [facility] Blood Venous blood specimen / Unknown Venipuncture / Unknown 05/11/2023 5:00 AM EDT 05/11/2023 5:31 AM EDT Yesika Mahajan MD LAB BLOOD ORDERABLES LABORATORY [facility] [address] [place] [address] * (ABNORMAL) BASIC METABOLIC PANEL (05/11/2023 5:00 AM EDT) [facility] BUN 19 6 - 20 mg/dL 05/11/2023 7:04 AM EDT LABORATORY [facility] Creatinine 1.0 0.5 - 1.0 mg/dL 05/11/2023 7:04 AM EDT LABORATORY [facility] Estimated Glomerular Filtration Rate 62 >=60 mL/min 05/11/2023 7:04 AM EDT LABORATORY [facility] Comment:eGFR is calculated b ased on the CKD-EPI 2020 equation Sodium 140 135 - 146 mmol/L 05/11/2023 7:04 AM EDT LABORATORY [facility] Potassium 3.9 3.5 - 5.1 mmol/L 05/11/2023 7:04 AM EDT LABORATORY [facility] Chloride 109(H) 98 - 107 mmol/L 05/11/2023 7:04 AM EDT LABORATORY [facility] CO2 23 22 - 32 mmol/L 05/11/2023 7:04 AM EDT LABORATORY [facility] Anion Gap 8 7 - 15 mmol/L 05/11/2023 7:04 AM EDT LAB[facility]ATORY [facility] Glucose 98 70 - 120 mg/dL 05/11/2023 7:04 AM EDT LABORATORY [facility] Calcium 8.3(L) 8.4 - 10.2 mg/dL 05/11/2023 7:04 AM EDT LAB[facility]ATORY [facility] Blood Venous blood specimen / Unknown Venipuncture / Unknown 05/11/2023 5:00 AM EDT 05/11/2023 5:31 AM EDT Yesika Mahajan MD LAB BLOOD ORDERABLES LABORATORY [facility] [address] [place] [address] * (ABNORMAL) DIFFERENTIAL, TECHNOLOGIST REVIEW (05/10/2023 5:35 AM EDT) WBC 3.75(L) 4.00 - 10.80 K/uL 05/10/2023 7:16 AM EDT LABORATORY [facility] Neutrophils % 28.0(L) 40.0 - 75.0 % 05/10/2023 7:16 AM EDT LABORATORY [facility] Lymphocytes % 51.0(H) 18.0 - 42.0 % 05/10/2023 7:16 AM EDT LABORATORY [facility] Monocytes % 17.0(H) 1.0 - 11.0 % 05/10/2023 7:16 AM EDT LABORATORY [facility] Eosinophils % 1.0 0.0 - 6.0 % 05/10/2023 7:16 AM EDT LABORATORY [facility] Basophils % 3.0(H) 0.0 - 2.0 % 05/10/2023 7:16 AM EDT LABORATORY [facility] Absolute Neutrophils 1.05(L) 1.80 - 7.70 K/uL 05/10/2023 7:16 AM EDT LABORATORY [facility] Absolute Lymphocytes 1.91 1.00 - 4.80 K/uL 05/10/2023 7:16 AM EDT LABORATORY [facility] Absolute Monocytes 0.64 0.00 - 1.10 K/uL 05/10/2023 7:16 AM EDT LABORATORY [facility] Absolute Eosinophils 0.04 0.00 - 0.70 K/uL 05/10/2023 7:16 AM EDT LABORATORY [facility] Absolute Basophils 0.11 0.00 - 0.20 K/uL 05/10/2023 7:16 AM EDT LABORATORY [facility] Blood Venous blood specimen / Unknown Venipuncture / Unknown 05/10/2023 5:35 AM EDT 05/10/2023 6:20 AM EDT Shravan Hudson MD LAB BLOOD ORDERABLES Performing Organization Address [facility] Co de Phone Number LABORATORY [facility] [address] [place] [address] * DIFFERENTIAL, AUTOMATED (05/10/2023 5:35 AM EDT) Blood Venous blood specimen / Unknown Venipuncture / Unknown 05/10/2023 5:35 AM EDT 05/10/2023 6:20 AM EDT Shravan Hudson MD LAB BLOOD ORDERABLES Performing Organization Address [facility]/ZIP Co de Phone Number LABORATORY [facility] [address] [place] [address] * (ABNORMAL) CBC (05/10/2023 5:35 AM EDT) WBC 3.75(L) 4.00 - 10.80 K/uL 05/10/2023 6:42 AM EDT LABORATORY [facility] RBC 3.05 3.85 - 5.15 M/uL 05/10/2023 6:42 AM EDT LABORATORY [facility] HGB 9.2(L) 12.0 - 15.3 g/dL 05/10/2023 6:42 AM EDT LABORATORY [facility] HCT 28.4(L) 36.0 - 45.2 % 05/10/2023 6:42 AM EDT LABORATORY [facility] MCV 93.1 81.5 - 97.5 fL 05/10/2023 6:42 AM EDT LABORATORY [facility] MCH 30.2 27.0 - 34.0 pg 05/10/2023 6:42 AM EDT LABORATORY [facility] MCHC 32.4 32.0 - 36.0 g/dL 05/10/2023 6:42 AM EDT LABORATORY [facility] RDW 15.8 11.5 - 15.5 % 05/10/2023 6:42 AM EDT LABORATORY [facility] PLT 128(L) 140 - 400 K/uL 05/10/2023 6:42 AM EDT LABORATORY [facility] MPV 12.6 6.6 - 11.1 fL 05/10/2023 6:42 AM EDT LABORATORY [facility] nRBCs 0 <=0 /100 WBCs 05/10/2023 6:42 AM EDT LAB[facility]ORY [facility] Blood Venous blood specimen / Unknown Venipuncture / Unknown 05/10/2023 5:35 AM EDT 05/10/2023 6:20 AM EDT Shravan Hudson MD LAB BLOOD ORDERABLES [facility]ORY [facility] [address] [place] [address] * (ABNORMAL) BASIC METABOLIC PANEL (05/10/2023 5:35 AM EDT) BUN 14 6 - 20 mg/dL 05/10/2023 6:53 AM EDT LAB[facility]ATORY [facility] Creatinine 1.0 0.5 - 1.0 mg/dL 05/10/2023 6:53 AM EDT LAB[facility]ATORY [facility] Estimated Glomerular Filtration Rate 62 >=60 mL/min 05/10/2023 6:53 AM EDT LAB[facility]ATORY [facility] Comment:eGFR is calculated b ased on the CKD-EPI 2020 equation Sodium 140 135 - 146 mmol/L 05/10/2023 6:53 AM EDT LAB[facility]ATORY [facility] Potassium 4.2 3.5 - 5.1 mmol/L 05/10/2023 6:53 AM EDT LAB[facility]ATORY [facility] Chloride 110(H) 98 - 107 mmol/L 05/10/2023 6:53 AM EDT LAB[facility]ORY [facility] CO2 22 22 - 32 mmol/L 05/10/2023 6:53 AM EDT LAB[facility]ATORY [facility] Anion Gap 8 7 - 15 mmol/L 05/10/2023 6:53 AM EDT LAB[facility]ATORY [facility] Glucose 99 70 - 120 mg/dL 05/10/2023 6:53 AM EDT LAB[facility]ATORY [facility] Calcium 7.9(L) 8.4 - 10.2 mg/dL 05/10/2023 6:53 AM EDT LABORATORY C Blood Venous blood specimen / Unknown Venipuncture / Unknown 05/10/2023 5:35 AM EDT 05/10/2023 6:20 AM EDT Shravan Hudson MD LAB BLOOD ORDERABLES Performing Organization Address City/[facility]/ZIP Co de Phone Number LABORATORY [facility] [address] [place] [address] * CLINICIAN PERIPHERAL BLOOD SLIDE REQUEST (05/09/2023 7:17 AM EDT) Clinician Slide Ready? Yes 05/09/2023 2:41 PM EDT LABORATORY [facility] Location to pickup slide: [facility] Main Laboratory [facility] 05/09/2023 2:41 PM EDT LABORATORY [facility] Blood Venous blood specimen / Unknown Venipuncture / Unknown 05/09/2023 7:17 AM EDT 05/09/2023 7:26 AM EDT Otilia Yates DO LAB BLOOD ORDERABLE S Performing Organization Address City/[facility]/ZIP Co de Phone Number LABORATORY [facility] [address] [place] [address] * (ABNORMAL) DIFFERENTIAL, TECHNOLOGIST REVIEW (05/09/2023 7:17 AM EDT) WBC 2.64(L) 4.00 - 10.80 K/uL 05/09/2023 8:17 AM EDT [facility] Neutrophils % 44.0 40.0 - 75.0 % 05/09/2023 8:17 AM EDT LAB[facility] Lymphocytes % 43.0(H) 18.0 - 42.0 % 05/09/2023 8:17 AM EDT [facility] Monocytes % 9.0 1.0 - 11.0 % 05/09/2023 8:17 AM EDT [facility] Eosinophils % 1.0 0.0 - 6.0 % 05/09/2023 8:17 AM EDT [facility] Basophils % 1.0 0.0 - 2.0 % 05/09/2023 8:17 AM EDT LAB[facility] Metamyelocytes % 2.0(H) <=0.0 % 05/09/19 8:17 AM EDT LAB[facility]ATORY [facility] Absolute Neutrophils 1.16(L) 1.80 - 7.70 K/uL 05/09/2023 8:17 AM EDT LAB[facility] Absolute Lymphocytes 1.14 1.00 - 4.80 K/uL 05/09/2023 8:17 AM EDT LAB[facility] Absolute Monocytes 0.24 0.00 - 1.10 K/uL 05/09/2023 8:17 AM EDT LAB[facility] Absolute Eosinophils 0.03 0.00 - 0.70 K/uL 05/09/2023 8:17 AM EDT LAB[facility] Absolute Basophils 0.03 0.00 - 0.20 K/uL 05/09/2023 8:17 AM EDT LAB[facility] Absolute Metamyelocytes 0.05(H) <=0.00 K/uL 05/09/2023 8:17 AM EDT LAB[facility] Giant PLTs Present(A ) None Seen 05/09/2023 8:17 AM EDT [facility] Blood Venous blood specimen / Unknown Venipuncture / Unknown 05/09/2023 7:17 AM EDT 05/09/2023 7:26 AM EDT Shravan Hudson MD LAB BLOOD ORDERABLES Performing Organization Address [facility]/ZIP Co de Phone Number LAB[facility]ATORY [facility] [address] [place] [address] * DIFFERENTIAL, AUTOMATED (05/09/2023 7:17 AM EDT) Blood Venous blood specimen / Unknown Venipuncture / Unknown 05/09/2023 7:17 AM EDT 05/09/2023 7:26 AM EDT Shravan Hudson MD LAB BLOOD ORDERABLES Performing Organization Address [facility] Co de Phone Number LAB[facility]ATORY [facility] [address] [place] [address] * (ABNORMAL) CBC (05/09/2023 7:17 AM EDT) WBC 2.64(L) 4.00 - 10.80 K/uL 05/09/2023 7:38 AM EDT LAB[facility] RBC 2.94 3.85 - 5.15 M/uL 05/09/2023 7:38 AM EDT LAB[facility] HGB 8.7(L) 12.0 - 15.3 g/dL 05/09/2023 7:38 AM EDT [facility] HCT 27.5(L) 36.0 - 45.2 % 05/09/2023 7:38 AM EDT LAB[facility] MCV 93.5 81.5 - 97.5 fL 05/09/2023 7:38 AM EDT [facility] MCH 29.6 27.0 - 34.0 pg 05/09/2023 7:38 AM EDT [facility] MCHC 31.6 32.0 - 36.0 g/dL 05/09/2023 7:38 AM EDT [facility] RDW 15.5 11.5 - 15.5 % 05/09/2023 7:38 AM EDT LAB[facility] PLT 105(L) 140 - 400 K/uL 05/09/2023 7:38 AM EDT LAB[facility] MPV 12.1 6.6 - 11.1 fL 05/09/2023 7:38 AM EDT [facility] nRBCs 0 <=0 /100 WBCs 05/09/2023 7:38 AM EDT [facility] Blood Venous blood specimen / Unknown Venipuncture / Unknown 05/09/2023 7:17 AM EDT 05/09/2023 7:26 AM EDT Shravan Hudson MD LAB BLOOD ORDERABLES [facility] [address] [place] [address] * (ABNORMAL) BASIC METABOLIC PANEL (05/09/2023 7:17 AM EDT) BUN 15 6 - 20 mg/dL 05/09/2023 7:53 AM EDT [facility] Creatinine 1.2(H) 0.5 - 1.0 mg/dL 05/09/2023 7:53 AM EDT [facility] Estimated Glomerular Filtration Rate 48(L) >=60 mL/min 05/09/2023 7:53 AM EDT LAB[facility] Comment:eGFR is calculated b ased on the CKD-EPI 2020 equation Sodium 139 135 - 146 mmol/L 05/09/2023 7:53 AM EDT LAB[facility] Potassium 4.3 3.5 - 5.1 mmol/L 05/09/2023 7:53 AM EDT LAB[facility] Chloride 109(H) 98 - 107 mmol/L 05/09/2023 7:53 AM EDT LAB[facility]ATORY [facility] CO2 21(L) 22 - 32 mmol/L 05/09/2023 7:53 AM EDT [facility] Anion Gap 9 7 - 15 mmol/L 05/09/2023 7:53 AM EDT [facility] Glucose 98 70 - 120 mg/dL 05/09/2023 7:53 AM EDT [facility] Calcium 7.9(L) 8.4 - 10.2 mg/dL 05/09/2023 7:53 AM EDT [facility] Blood Venous blood specimen / Unknown Venipuncture / Unknown 05/09/2023 7:17 AM EDT 05/09/2023 7:26 AM EDT Shravan Hudson MD LAB BLOOD ORDERABLES Performing Organization Address City/[facility]/ZIP Co de Phone Number [facility] [address] [place] [address] * (ABNORMAL) DIFFERENTIAL, TECHNOLOGIST REVIEW (05/08/2023 8:54 PM EDT) WBC 2.66(L) 4.00 - 10.80 K/uL 05/08/2023 9:38 PM EDT [facility] Neutrophils % 57.0 40.0 - 75.0 % 05/08/2023 9:38 PM EDT [facility] Lymphocytes % 27.0 18.0 - 42.0 % 05/08/2023 9:38 PM EDT [facility] Monocytes % 16.0(H) 1.0 - 11.0 % 05/08/2023 9:38 PM EDT [facility] Absolute Neutrophils 1.52(L) 1.80 - 7.70 K/uL 05/08/2023 9:38 PM EDT LAB[facility] Absolute Lymphocytes 0.72(L) 1.00 - 4.80 K/uL 05/08/2023 9:38 PM EDT [facility] Absolute Monocytes 0.43 0.00 - 1.10 K/uL 05/08/2023 9:38 PM EDT [facility] Blood Venous blood specimen / Unknown Venipuncture / Unknown 05/08/2023 8:54 PM EDT 05/08/2023 9:03 PM EDT Shravan Hudson MD LAB BLOOD ORDERABLES [facility] [address] [place] [address] * DIFFERENTIAL, AUTOMATED (05/08/2023 8:54 PM EDT) Blood Venous blood specimen / Unknown Venipuncture / Unknown 05/08/2023 8:54 PM EDT 05/08/2023 9:03 PM EDT Shravan Hudson MD LAB BLOOD ORDERABLES [facility] [address] [place] [address] * (ABNORMAL) CBC (05/08/2023 8:54 PM EDT) Pathologist [facility] WBC 2.66(L) 4.00 - 10.80 K/uL 05/08/2023 9:12 PM EDT LAB[facility] RBC 2.97 3.85 - 5.15 M/uL 05/08/2023 9:12 PM EDT [facility] HGB 8.9(L) 12.0 - 15.3 g/dL 05/08/2023 9:12 PM EDT LAB[facility] HCT 27.4(L) 36.0 - 45.2 % 05/08/2023 9:12 PM EDT [facility] MCV 92.3 81.5 - 97.5 fL 05/08/2023 9:12 PM EDT [facility] MCH 30.0 27.0 - 34.0 pg 05/08/2023 9:12 PM EDT LABORATORY [facility] MCHC 32.5 32.0 - 36.0 g/dL 05/08/2023 9:12 PM EDT LABORATORY [facility] RDW 15.4 11.5 - 15.5 % 05/08/2023 9:12 PM EDT LABORATORY [facility] PLT 108(L) 140 - 400 K/uL 05/08/2023 9:12 PM EDT LABORATORY [facility] MPV 12.2 6.6 - 11.1 fL 05/08/2023 9:12 PM EDT LABORATORY [facility] nRBCs 0 <=0 /100 WBCs 05/08/2023 9:12 PM EDT LABORATORY [facility] Blood Venous blood specimen / Unknown Venipuncture / Unknown 05/08/2023 8:54 PM EDT 05/08/2023 9:03 PM EDT Shravan Hudson MD LAB BLOOD ORDERABLES LABORATORY [facility] [address] [place] [address] * SARS-COV-2 (COVID-19), NAAT (05/08/2023 4:25 PM EDT) Pathologist [facility] SARS-CoV-2 (COVID-19) Result Negative Negative 05/08/2023 6:13 PM EDT [facility] Comment: 2019 Novel Coronavirus not detected. This express test was developed and its performance characteristics determined by [employer]. It has not been cleared or approved by the U.S. Food and Drug Administration (FDA). FDA does not require this test to go thru premarket FDA review. This test is used for clinical purposes. It should not be regarded as investigational or for research. This laboratory is certified under the Clinical Laboratory Improvement Amendments (CLIA) as qualified to perform high complexity clinical laboratory testing. This test is a nucleic acid amplification test (NAAT), a reverse transcriptase polymerase chain reaction (RT-PCR) test, or a Centers for Disease Control- acceptable equivalent. The test is performed in a high complexity Clinical Laboratory Improvement Amendments-(CLIA) certified laboratory. The test is acceptable for SARS-CoV-2 diagnosis, surveillance, and travel within the [place] and to most countries. Please check with local testing authorities about requirements before travel. The validation of bronchial specimens, tracheal aspirates, and sputum for this assay was developed and performance characteristics determined by [employer]. The validation of alternate specimen types has not been cleared or approved by the U.S. Food and Drug Administration (FDA). It has been determined that such clearance is not necessary. Upper Respiratory Mid-turbinate nasal swab / Unknown Non-blood Collection / Unknown 05/08/2023 4:25 PM EDT 05/08/2023 4:56 PM EDT Yesika Mahajan MD LAB MICRO - GENERAL ORDERABLES LABORATORY [facility] [address] [place] [address] * (ABNORMAL) BASIC METABOLIC PANEL (05/08/2023 4:24 PM EDT) BUN 17 6 - 20 mg/dL 05/08/2023 5:05 PM EDT LABORATORY [facility] Creatinine 1.1(H) 0.5 - 1.0 mg/dL 05/08/2023 5:05 PM EDT LABORATORY [facility] Estimated Glomerular Filtration Rate 53(L) >=60 mL/min 05/08/2023 5:05 PM EDT LABORATORY [facility] Comment:eGFR is calculated b ased on the CKD-EPI 2020 equation Sodium 140 135 - 146 mmol/L 05/08/2023 5:05 PM EDT [facility] Potassium 4.1 3.5 - 5.1 mmol/L 05/08/2023 5:05 PM EDT [facility] Chloride 106 98 - 107 mmol/L 05/08/2023 5:05 PM EDT [facility] CO2 21(L) 22 - 32 mmol/L 05/08/2023 5:05 PM EDT [facility] Anion Gap 13 7 - 15 mmol/L 05/08/2023 5:05 PM EDT [facility] Glucose 141(H) 70 - 120 mg/dL 05/08/2023 5:05 PM EDT [facility] Calcium 8.6 8.4 - 10.2 mg/dL 05/08/2023 5:05 PM EDT [facility] Blood Arterial blood specimen / Unknown Arterial Puncture / Unknown 05/08/2023 4:24 PM EDT 05/08/2023 4:36 PM EDT Shravan Hudson MD LAB BLOOD ORDERABLES LABORATORY [facility] [address] [place] [address] * (ABNORMAL) CBC (05/08/2023 4:24 PM EDT) WBC 2.83(L) 4.00 - 10.80 K/uL 05/08/2023 4:45 PM EDT LAB[facility] RBC 3.17 3.85 - 5.15 M/uL 05/08/2023 4:45 PM EDT LAB[facility] HGB 9.6(L) 12.0 - 15.3 g/dL 05/08/2023 4:45 PM EDT [facility] HCT 29.3(L) 36.0 - 45.2 % 05/08/2023 4:45 PM EDT LAB[facility] MCV 92.4 81.5 - 97.5 fL 05/08/2023 4:45 PM EDT LAB[facility] MCH 30.3 27.0 - 34.0 pg 05/08/2023 4:45 PM EDT LAB[facility] MCHC 32.8 32.0 - 36.0 g/dL 05/08/2023 4:45 PM EDT LABORATORY [facility] RDW 15.3 11.5 - 15.5 % 05/08/2023 4:45 PM EDT LABORATORY [facility] PLT 100(L) 140 - 400 K/uL 05/08/2023 4:45 PM EDT LABORATORY [facility] MPV 11.9 6.6 - 11.1 fL 05/08/2023 4:45 PM EDT LABORATORY [facility] nRBCs 0 <=0 /100 WBCs 05/08/2023 4:45 PM EDT LABORATORY [facility] Blood Arterial blood specimen / Unknown Arterial Puncture / Unknown 05/08/2023 4:24 PM EDT 05/08/2023 4:36 PM EDT Shravan Hudson MD LAB BLOOD ORDERABLES LABORATORY [facility] [address] [place] [address] * (ABNORMAL) GLUCOSE METER, POINT OF CARE (05/08/2023 3:04 PM EDT) Glucose Meter 125(H) 70 - 120 mg/dL 05/08/2023 3:06 PM EDT [facility] [address] Blood Whole blood specimen / Unknown 05/08/2023 3:04 PM EDT 05/08/2023 3:06 PM EDT Saul Vargas MD LAB POINT OF CARE TEST DOCKED DEVICE UNSOLICITED RESULTS [facility] [address] [place] [address] * (ABNORMAL) WHOLE BLOOD PROFILE, ARTERIAL (05/08/2023 12:13 PM EDT) Temperature 37.0 C 05/08/2023 12:28 PM EDT LABORATORY C pH, Arterial 7.328(L) 7.350 - 7.450 units 05/08/2023 12:28 PM EDT LAB[facility] pCO2, Arterial 41.9 35.0 - 45.0 mmHg 05/08/2023 12:28 PM EDT LABORATORY C pO2, Arterial 315.0(H) 75.0 - 100.0 mmHg 05/08/2023 12:28 PM EDT LABORATORY C Base Excess, Arterial -3.8(L) -2.0 - 2.0 mmol/L 05/08/2023 12:28 PM EDT LABORATORY C HGB 10.5(L) 12.0 - 15.3 g/dL 05/08/2023 12:28 PM EDT LABORATORY [facility] Hematocrit, Whole Blood 32.6(L) 36.0 - 45.2 % 05/08/2023 12:28 PM EDT LABORATORY C Comment: The Hematocrit reference interval is based on adult population. This method is intended for trending and screening purposes only. A "Complete Blood Count" is more accurate and should be ordered if clinically indicated. Oxyhemoglobin, Arterial 97.7 94.0 - 99.0 % total Hgb 05/08/2023 12:28 PM EDT LABORATORY C Carboxyhemoglob in, Whole Blood 1.1 <=1.5 % total Hgb 05/08/2023 12:28 PM EDT LABORATORY C Comment:Smokers: 0-9.0 % Methemoglobin, Whole Blood 0.8 <=1.5 % total Hgb 05/08/2023 12:28 PM EDT LABORATORY [facility] Reduced Hemoglobin, Arterial 0.4 0.0 - 5.0 % total Hgb 05/08/2023 12:28 PM EDT LABORATORY [facility] O2 Content, Arterial 15.3 15.0 - 24.0 %vol 05/08/2023 12:28 PM EDT LABORATORY C Potassium, Whole Blood 4.0 3.5 - 5.1 mmol/L 05/08/2023 12:28 PM EDT [facility] Sodium, Whole Blood 143 135 - 146 mmol/L 05/08/2023 12:28 PM EDT LABORATORY C Chloride, Whole Blood 110(H) 98 - 107 mmol/L 05/08/2023 12:28 PM EDT LABORATORY C Calcium, Ionized, Whole Blood 1.12(L) 1.13 - 1.32 mmol/L 05/08/2023 12:28 PM EDT LABORATORY C Anion Gap, Whole Blood 11.6 7.0 - 15.0 mmol/L 05/08/2023 12:28 PM EDT LABORATORY [facility] Glucose, Whole Blood 119 70 - 120 mg/dL 05/08/2023 12:28 PM EDT LAB[facility] FiO2 Not Provided % 05/08/2023 12:28 PM EDT LAB[facility] O2 Flow, Arterial Not Provided L/min 05/08/2023 12:28 PM EDT LABORATORY C Bicarbonate, Whole Blood 21.4(L) 23.0 - 31.0 mmol/L 05/08/2023 12:28 PM EDT LABORATORY C Blood Arterial blood specimen / Unknown 05/08/2023 12:13 PM EDT 05/08/2023 12:22 PM EDT Kareem Dejseus Jr., MD LAB BLOOD ORD ERABLES LABORATORY [facility] [address] [place] [address] * GLUCOSE METER, POINT OF CARE (05/08/2023 9:39 AM EDT) Glucose Meter 88 70 - 120 mg/dL 05/08/2023 9:56 AM EDT [facility] [address] Blood Whole blood specimen / Unknown 05/08/2023 9:39 AM EDT 05/08/2023 9:56 AM EDT Saul Vargas MD LAB POINT OF CARE TEST DOCKED DEVICE UNSOLICITED RESULTS [facility] [address] [place] [address] * PREPARE PACKED RED BLOOD CELLS (05/08/2023 8:50 AM EDT) Unit Product Code [id number] LABORATORY [facility] BLOOD BANK Unit Number [id number] LABO RATORY [facility] BLOOD BANK Unit ABO B LABORATORY [facility] BLOOD BANK Unit Rh POS LABORATORY [facility] BLOOD B[facility] Unit Crossmatch Compatible LABORATORY [facility] BLOOD BANK Unit Status RE LABORATO RY [facility] BLOOD BANK Unit Blood Type BPOS LABORATORY [facility] BLOOD BANK Unit Expiration [id number] LABORATORY [facility] BLOOD BANK Unit Barcode [id number] LABORAT ORY [facility] BLOOD BANK 05/08/2023 8:50 AM EDT Yesika Mahajan MD BLD BANK PRODUCT ORD ERABLES LABORATORY [facility] BLOOD BANK [address] [place] [address] documented in this encounter Visit Diagnoses Diagnosis 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 Use for 5 days., Post-op, Post-op Given 05/13/2023 5:38 AM EDT 975 mg Given 05/12/2023 9:28 PM EDT 975 mg Given 05/12/2023 1:19 PM EDT 975 mg Alvimopan (Entereg) cap 12 mg 12 mg, Oral, PREOP, First dose on Sat05/08/23 at 0930, Last dose on Sat05/08/23 at 0930, For 1 dose, Start in pre-op before surgery RESTRICTED TO GI SURGERY May give if patient is NPO with SIP of water. Start in AM the day after surgery ONLY if pt had a pre-op dose. Contact provider to discontinue when bowel function returns! DO NOT EXCEED 14 DOSES, per FDA Requirement. Do not give post discharge. Given 05/08/2023 9:25 AM EDT 12 mg Alvimopan (Entereg) cap 12 mg 12 mg, Oral, BID (.AM/PM), First dose (after last reorder) on Sat05/08/23 at 2100, Last dose on Sat05/08/23 at 2100, For 1 dose, Start in pre-op before surgery RESTRICTED TO GI SURGERY May give if patient is NPO with SIP of water. Start in AM the day after surgery ONLY if pt had a pre-op dose. Contact provider to discontinue when bowel function returns! DO NOT EXCEED 14 DOSES, per FDA Requirement. Do not give post discharge. Given 05/08/2023 9:04 PM EDT 12 mg Alvimopan (Entereg) cap 12 mg 12 mg, Oral, BID (.AM/PM), First dose (after last reorder) on Sat05/09/23 at 0900, Last dose on Sat05/15/23 at 0900, For 13 doses, Start in pre-op before surgery RESTRICTED TO GI SURGERY May give if patient is NPO with SIP of water. Start in AM the day after surgery ONLY if pt had a pre-op dose. Contact provider to discontinue when bowel function returns! DO NOT EXCEED 14 DOSES, per FDA Requirement. Do not give post discharge. Given 05/10/2023 8:50 PM EDT 12 mg Given 05/10/2023 8:59 AM EDT 12 mg Given 05/09/2023 9:02 PM EDT 12 mg calcium CARBonate (Tums E-X) tab CHEW 750 mg 750 mg, Oral, Q6H PRN Indigestion, Starting on Sat05/08/23 at 1608, Until Sat05/13/23 at 1559 cefOXitin in dextrose (Mefoxin) ivpb 2 g 2 g, IV Piggyback, Q6H, 3 doses, First dose on Sat05/09/23 at 0000, Last dose on Sat05/09/23 at 1200, Post-op New Bag 05/09/2023 12:08 PM EDT 2 g 100 mL/hr New Bag 05/09/2023 6:18 AM EDT 2 g 100 mL/hr New Bag 05/08/2023 11:47 PM EDT 2 g 100 mL/hr Enoxaparin (Lovenox) inj 40 mg 40 mg, Subcutaneous, Daily(AM), First dose on Sat05/10/23 at 1200, Until Discontinued, If patient is on warfarin, inform provider if daily INR value is 2 or greater! Given 05/13/2023 8:44 AM EDT 40 mg Abdom en Left Upper Given 05/12/2023 8:20 AM EDT 40 mg Ab domen Left Upper Given 05/11/2023 8:33 AM EDT 40 mg Ab domen Left Lower Famotidine (Pepcid) tab 20 mg 20 mg, Oral, DAILY(1900), First dose on Sat05/08/23 at 1900, Until Discontinued, Post-op Given 05/11/2023 5:30 PM EDT 20 mg Given 05/10/2023 8:50 PM EDT 20 mg Given 05/09/2023 6:31 PM EDT 20 mg Famotidine (Pepcid) tab 20 mg 20 mg, Oral, DAILY(1900), First dose (after last modification) on Sat05/12/23 at 1900, Last dose on Sat05/12/23 at 1900, For 1 dose, Post-op Given 05/12/2023 6:37 PM EDT 20 mg Filgrastim-aafi (Nivestym) inj 480 mcg 480 mcg, Subcutaneous, [id number], First dose on Sat05/09/23 at 1600, Until Discontinued Given 05/12/2023 5:00 PM EDT 480 mcg Arm L eft Upper Given 05/11/2023 5:32 PM EDT 480 mcg Ar m Left Upper Given 05/10/2023 5:06 PM EDT 480 mcg Ab domen Left Upper fluticasone (Flonase) nasal inhaler 2 Egnar 2 Egnar, Each Nostril, Daily(AM), First dose on Sat05/09/23 at 0900, Until Discontinued, 50 mcg / Actuation Given 05/13/2023 8:46 AM EDT 2 Sprays Given 05/12/2023 8:18 AM EDT 2 Sprays Given 05/11/2023 8:36 AM EDT 2 Sprays hEParin inj 5,000 Units 5,000 Units, Subcutaneous, ONCE, On Sat05/08/23 at 0930, For 1 dose, Administer on induction Given 05/08/2023 9:25 AM EDT 5,000 Units Abdomen Left Lower hEParin inj 5,000 Units 5,000 Units, Subcutaneous, Q8H, First dose on Sat05/09/23 at 0600, Until Discontinued, Post-op Given 05/10/2023 6:19 AM EDT 5,000 Units Abdomen Right Lower Given 05/09/2023 9:02 PM EDT 5,000 Units A bdomen Right Upper Given 05/09/2023 1:52 PM EDT 5,000 Units A bdomen Right Lower HYDROmorphone (Dilaudid) inj 0.25 mg 0.25 mg, IV Push, Q15 MIN PRN Pain, Severe, Pain, Moderate, Starting on Sat05/08/23 at 1637, Until Sat05/08/23 at 1804, Administer only postop in PACU. Hold for respiratory rate less than 12. Administer up to a total of 1.5mg., PACU Given 05/08/2023 5:33 PM EDT 0.25 mg Given 05/08/2023 5:18 PM EDT 0.25 mg Given 05/08/2023 5:03 PM EDT 0.25 mg IMPACT AR liquid 250 mL, Oral, BID (AM/PM MEALS), 10 doses, First dose on Sat05/09/23 at 1615, Last dose on Sat05/14/23 at 0800, Post-op Given 05/13/2023 8:43 AM EDT 250 mL Given 05/12/2023 5:01 PM EDT 250 mL Given 05/12/2023 12:04 PM EDT 250 mL Loratadine (Claritin) tab 10 mg 10 mg, Oral, HS, First dose on Sat05/08/23 at 2200, Until Discontinued Given 05/12/2023 9:29 PM EDT 10 mg Given 05/11/2023 8:51 PM EDT 10 mg Given 05/10/2023 8:50 PM EDT 10 mg magnesium sulfate 1 g in d5w 100mL LOCKED DOSE 1 g, IV Piggyback, Q1H, 2 doses, First dose on 05/11/23 at 1800, Last dose on Sat05/11/23 at 1900, Administer over 60 Minutes, Total dose is 2g New Bag 05/11/2023 8:25 PM EDT 1 g 100 mL/hr Restarted 05/11/2023 7:35 PM EDT 1 g/hr 100 mL/hr Restarted 05/11/2023 7:25 PM EDT 1 g/hr 100 mL/hr melatonin tab 1 mg 1 mg, Oral, HS PRN Sleep, Starting on Sat05/08/23 at 1606, Until Sat05/13/23 at 1559, Post-op Given 05/12/2023 10:26 PM EDT 1 mg Given 05/11/2023 10:04 PM EDT 1 mg Menthol (Hudson) cough drop 1 Lozenge 1 Lozenge, Oral, Q2H PRN Sore throat, Starting on Sat05/08/23 at 1608, Until Sat05/13/23 at 1559 NSS infusion Intravenous, at 75 mL/hr, CONTINUOUS, Starting on Sat05/08/23 at 1645, Until Sat05/08/23 at 1948, Post-op Rate Verify 05/08/2023 6:52 PM EDT 75 mL/hr New Bag 05/08/2023 6:42 PM EDT 75 mL/hr New Bag 05/08/2023 4:49 PM EDT 75 mL/hr NSS infusion Intravenous, at 100 mL/hr, CONTINUOUS, Starting on Sat05/08/23 at 2030, Until Sat05/10/23 at 0728, Post-op Rate Verify 05/10/2023 6:32 AM EDT 100 mL/hr Restarted 05/10/2023 5:36 AM EDT 100 mL/hr Rate Verify 05/10/2023 3:44 AM EDT 100 mL/hr ondansetron (Zofran) inj 4 mg 4 mg, IV Push, Q6H PRN Other, May use for nausea or vomiting if patient unable to take oral ondansetron, Starting on Sat05/08/23 at 1604, Until Sat05/13/23 at 1559, Post-op Given 05/11/2023 1:55 PM EDT 4 m g ondansetron ODT (Zofran) tab 4 mg 4 mg, On Tongue, Q6H PRN Nausea, Vomiting, Starting on Sat05/08/23 at 1604, Until Sat05/13/23 at 1559, Post-op oxyCODONE (Oxy IR) tab 10 mg 10 mg, Oral, Q4H PRN Pain, Severe, Starting on Sat05/08/23 at 1607, Until Sat05/13/23 at 1559 Given 05/09/2023 10:57 PM EDT 10 mg oxyCODONE (Oxy IR) tab 5 mg 5 mg, Oral, Q4H PRN Pain, Moderate, Starting on Sat05/08/23 at 1607, Until Sat05/13/23 at 1559 phenol (chlorASEPTIC) spray 3 Egnar 3 Egnar, Oral, Q4H PRN Sore throat, Starting on Sat05/08/23 at 1608, Until Sat05/13/23 at 1559, See nursing care plan Polyethylene Glycol 3350 (Miralax) oral powder 17 g 17 g (1 Packet), Oral, HS, First dose on Sat05/08/23 at 2200, Last dose on Sat05/21/23 at 2200, For 14 doses, Mix in 8 oz of water, juice, soda, coffee, or tea., Post-op Given 05/10/2023 8:50 PM EDT 17 g Given 05/09/2023 9:03 PM EDT 17 g Given 05/08/2023 9:03 PM EDT 17 g potassium and sodium phosphate (Phos-Nak) oral powder 1 Packet 1 Packet, Oral, Daily(AM), First dose on Sat05/11/23 at 1745, Last dose on Sat05/12/23 at 0900, For 2 doses, Mix 1 packet in 2.5 ounces (75 mL) of water, stir well and administer promptly. 1 packet contains Phosphorus 250 mg (~8 mMoles) + potassium 280 mg (~7.125 mEq) + sodium 160mg (~7.125 mEq) Given 05/12/2023 8:19 AM EDT 1 Packet Given 05/11/2023 5:32 PM EDT 1 Packet prochlorperazine (Compazine) inj 10 mg 10 mg, IV Push, Q6H PRN Nausea, Vomiting, Starting on Sat05/08/23 at 1604, Until Sat05/13/23 at 1559, Use as second line therapy if nausea and/or vomiting unrelieved with ondansetron. May use if patient unable to take oral prochlorperazine., Post-op prochlorperazine (Compazine) tab 10 mg 10 mg, Oral, Q6H PRN Nausea, Vomiting, Starting on Sat05/08/23 at 1604, Until Sat05/13/23 at 1559, Use as second line therapy if nausea and/or vomiting unrelieved with ondansetron., Post-op senna (Senokot) 2 Tablet 2 Tablet, Oral, Daily(AM), First dose on Elsy 05/09/23 at 0900, Until Discontinued, hold if patient have loose stool or frequent bowel movements, Post-op Given 05/12/2023 8:20 AM EDT 2 Tablets Given 05/10/2023 8:59 AM EDT 2 Tablets Given 05/09/2023 8:22 AM EDT 2 Tablets Simethicone (Mylicon) chew tab 80 mg 80 mg, Oral, Q6H PRN Gas, Indigestion, Starting on Sat05/08/23 at 1608, Until Sat05/13/23 at 1559, Tablets need to be chewed before swallowing! documented in this encounter Active and Recently Administered Medications Times are shown in EDT. Scheduled Medication Order 05/11/2023 05/12/2023 05/13/2023 Acetaminophen (Tylenol) tab 975 mg 975 mg, Oral, Q8H, First dose on Sat05/08/23 at 2200, Last dose on Sat05/13/23 at 1400, For 5 days, Avoid in patients with severe hepatic impairment or severe active liver disease. Use for 5 days., Post-op, Post-op 0558 (Given - Provider: Celia Prieto RN)1346 (Given - Provider: Almaz Mai LPN)205 (Given - Provider: Amy Larson RN) 0505 (Given - Provider: Amy Larson RN)1319 (Given - Provider: Almaz Mai LPN)2128 (Given - Provider: Amy Larson RN) 0538 (Given - Provider: Amy Larson RN) Enoxaparin (Lovenox) inj 40 mg 40 mg, Subcutaneous, Daily(AM), First dose on Sat05/10/23 at 1200, Until Discontinued, If patient is on warfarin, inform provider if daily INR value is 2 or greater! 0833 (Given - Provider: Almaz Mai LPN) 0820 (Given - Provider: Almaz Mai LPN) 0844 (Given - Provider: Almaz Mai LPN) Famotidine (Pepcid) tab 20 mg (CANCELED) 20 mg, Oral, DAILY(1900), First dose on Sat05/08/23 at 1900, Until Discontinued, Post-op 173 (Given - Provider: Almaz Mai LPN) Famotidine (Pepcid) tab 20 mg (COMPLETED) 20 mg, Oral, DAILY(1900), First dose (after last modification) on Sat05/12/23 at 1900, Last dose on Sat05/12/23 at 1900, For 1 dose, Post-op 1837 (Given - Provider: Almaz Mai LPN) Filgrastim-aafi (Nivestym) inj 480 mcg 480 mcg, Subcutaneous, [id number], First dose on Sat05/09/23 at 1600, Until Discontinued 173 (Given - Provider: Almaz Mai LPN) 170 (Given - Provider: Almaz Mai LPN) fluticasone (Flonase) nasal inhaler 2 Egnar 2 Egnar, Each Nostril, Daily(AM), First dose on Sat05/09/23 at 0900, Until Discontinued, 50 mcg / Actuation 0836 (Given - Provider: Almaz Mai LPN) 0818 (Given - Provider: Almaz Mai LPN) 0846 (Given - Provider: Almaz Mai LPN) IMPACT AR liquid 250 mL, Oral, BID (AM/PM MEALS), 10 doses, First dose on Sat05/09/23 at 1615, Last dose on Sat05/14/23 at 0800, Post-op 0945 (Given - Provider: Christa Jiang RN)173 (Given - Provider: Almaz Mai LPN) 1204 (Given - Provider: Almaz Mai LPN - Comment: late from pharmacy)170 (Given - Provider: Almaz Mai LPN) 0843 (Given - Provider: Almaz Mai LPN) Loratadine (Claritin) tab 10 mg 10 mg, Oral, HS, First dose on Sat05/08/23 at 2200, Until Discontinued 2050 (Given - Provider: Amy Larson RN) 2128 (Given - Provider: Amy Larson RN) magnesium sulfate 1 g in d5w 100mL LOCKED DOSE (COMPLETED) 1 g, IV Piggyback, Q1H, 2 doses, First dose on Sat05/11/23 at 1800, Last dose on Sat05/11/23 at 1900, Administer over 60 Minutes, Total dose is 2g 1738 (New Bag - Provider: Almaz Mai LPN)1748 (Paused - Provider: Amy Larson RN)175 (Restarted - Provider: Amy Larson RN)175 (Paused - Provider: Amy Larson RN)1924 (Restarted - Provider: Amy Larson RN)1926 (Paused - Provider: Amy Larson RN)1934 (Restarted - Provider: Amy Larson RN)2019 (Stopped - Provider: Amy Larson RN)2024 (New Bag - Provider: Amy Larson RN)2125 (Stopped - Provider: Amy Larson RN) Polyethylene Glycol 3350 (Miralax) oral powder 17 g 17 g (1 Packet), Oral, HS, First dose on Sat05/08/23 at 2200, Last dose on Sat05/21/23 at 2200, For 14 doses, Mix in 8 oz of water, juice, soda, coffee, or tea., Post-op 2050 (Not Given - Provider: Amy Larson RN - Reason: Refused-Notify Provider - Comment: pt having loose BMs) 2128 (Not Given - Provider: Amy Larson RN - Reason: Refused-Notify Provider - Comment: pt having loose BMs) potassium and sodium phosphate (Phos-Nak) oral powder 1 Packet (COMPLETED) 1 Packet, Oral, Daily(AM), First dose on Sat05/11/23 at 1745, Last dose on Sat05/12/23 at 0900, For 2 doses, Mix 1 packet in 2.5 ounces (75 mL) of water, stir well and administer promptly. 1 packet contains Phosphorus 250 mg (~8 mMoles) + potassium 280 mg (~7.125 mEq) + sodium 160mg (~7.125 mEq) 173 (Given - Provider: Almaz Mai LPN) 0819 (Given - Provider: Almaz Mai LPN) senna (Senokot) 2 Tablet 2 Tablet, Oral, Daily(AM), First dose on Elsy 05/09/23 at 0900, Until Discontinued, hold if patient have loose stool or frequent bowel movements, Post-op 0833 (Not Given - Provider: Almaz Mai LPN - Reason: Refused-Notify Provider - Comment: service at bedside and aware) 0820 (Given - Provider: Almaz Mai LPN) 0844 (Not Given - Provider: Almaz Mai LPN - Reason: Refused-Notify Provider) PRN Medication Order 05/11/2023 05/12/2023 05/13/2023 calcium CARBonate (Tums E-X) tab CHEW 750 mg 750 mg, Oral, Q6H PRN Indigestion, Starting on Sat05/08/23 at 1608, Until Sat05/13/23 at 1559 melatonin tab 1 mg 1 mg, Oral, HS PRN Sleep, Starting on Sat05/08/23 at 1606, Until Sat05/13/23 at 1559, Post-op 220 (Given - Provider: Amy Larson RN) 2225 (Given - Provider: Amy Larson RN) Menthol (Hudson) cough drop 1 Lozenge 1 Lozenge, Oral, Q2H PRN Sore throat, Starting on Sat05/08/23 at 1608, Until Sat05/13/23 at 1559 ondansetron (Zofran) inj 4 mg(Linked Group 1) 4 mg, IV Push, Q6H PRN Other, May use for nausea or vomiting if patient unable to take oral ondansetron, Starting on Sat05/08/23 at 1604, Until Sat05/13/23 at 1559, Post-op 1355 (Given - Provider: Christa Jiang RN - Comment: c/o nausea/vomiting) ondansetron ODT (Zofran) tab 4 mg(Linked Group 1) 4 mg, On Tongue, Q6H PRN Nausea, Vomiting, Starting on Sat05/08/23 at 1604, Until Sat05/13/23 at 1559, Post-op 1355 (See Alternative - Provider: Christa Jiang RN) oxyCODONE (Oxy IR) tab 10 mg 10 mg, Oral, Q4H PRN Pain, Severe, Starting on Sat05/08/23 at 1607, Until Sat05/13/23 at 1559 oxyCODONE (Oxy IR) tab 5 mg 5 mg, Oral, Q4H PRN Pain, Moderate, Starting on Sat05/08/23 at 1607, Until Sat05/13/23 at 1559 phenol (chlorASEPTIC) spray 3 Egnar 3 Egnar, Oral, Q4H PRN Sore throat, Starting on Sat05/08/23 at 1608, Until Sat05/13/23 at 1559, See nursing care plan prochlorperazine (Compazine) inj 10 mg(Linked Group 2) 10 mg, IV Push, Q6H PRN Nausea, Vomiting, Starting on Sat05/08/23 at 1604, Until Sat05/13/23 at 1559, Use as second line therapy if nausea and/or vomiting unrelieved with ondansetron. May use if patient unable to take oral prochlorperazine., Post-op prochlorperazine (Compazine) tab 10 mg(Linked Group 2) 10 mg, Oral, Q6H PRN Nausea, Vomiting, Starting on Sat05/08/23 at 1604, Until Sat05/13/23 at 1559, Use as second line therapy if nausea and/or vomiting unrelieved with ondansetron., Post-op Simethicone (Mylicon) chew tab 80 mg 80 mg, Oral, Q6H PRN Gas, Indigestion, Starting on Sat05/08/23 at 1608, Until Sat05/13/23 at 1559, Tablets need to be chewed before swallowing! Linked Groups Order Group 1: ondansetron ODT (Zofran) tab 4 mgJump to med 4 mg, On Tongue, Q6H PRN Nausea, Vomiting, Starting on Sat05/08/23 at 1604, Until Sat05/13/23 at 1559, Post-op Or ondansetron (Zofran) inj 4 mgJump to med 4 mg, IV Push, Q6H PRN Other, May use for nausea or vomiting if patient unable to take oral ondansetron, Starting on Sat05/08/23 at 1604, Until Sat05/13/23 at 1559, Post-op Group 2: prochlorperazine (Compazine) tab 10 mgJump to med 10 mg, Oral, Q6H PRN Nausea, Vomiting, Starting on Sat05/08/23 at 1604, Until 05/13/23 at 1559, Use as second line therapy if nausea and/or vomiting unrelieved with ondansetron., Post-op Or prochlorperazine (Compazine) inj 10 mgJump to med 10 mg, IV Push, Q6H PRN Nausea, Vomiting, Starting on Sat05/08/23 at 1604, Until 05/13/23 at 1559, Use as second line therapy if nausea and/or vomiting unrelieved with ondansetron. May use if patient unable to take oral prochlorperazine., Post-op documented in this encounter Advance Directives Latest [...] and were consensually agreed upon. Care Teams Pediatric Nurse Relationship Specialty Start Date End Date Nichole Lizarraga MD [address] [place] [address] PCP - General Internal Medicine 03/10/12 documented as of this encounter
--- OUTSIDE RECORDS SUMMARY | 2023-06-30 22:51 | External Medical Summary ---
Author Name Unknown Address Unknown Organization K01:LABORATORY [facility] [place] - [facility] [address] [place] [address] Laboratory Report Ordering Provider Test Date Status KEITH DAVIDSON 05/13/2023 06:27:00 Final Observation Date Value Abnormality Reference (Units ) Status WBC, Total 05/13/2023 06:27:00 3.98 Below low normal 4.00-10.80 (K/uL) Final RBC 05/13/2023 06:27:00 3.28 3.85-5.15 (M/uL) Final Hemoglobin 05/13/2023 06:27:00 9.6 Below low normal 12.0-15.3 (g/dL) Final HCT 05/13/2023 06:27:00 30.8 Below low normal 36.0-45.2 (%) Final MCV 05/13/2023 06:27:00 93.9 81.5-97.5 (fL) Final MCH 05/13/2023 06:27:00 29.3 27.0-34.0 (pg) Final MCHC 05/13/2023 06:27:00 31.2 32.0-36.0 (g/dL) Final RDW 05/13/2023 06:27:00 15.5 11.5-15.5 (%) Final Platelets 05/13/2023 06:27:00 190 140-400 (K/uL) Final MPV 05/13/2023 06:27:00 11.2 6.6-11.1 (fL) Final Nucleated erythrocytes/100 leukocytes [Ratio] in Blood by Automated count 05/13/2023 06:27:00 0 <=0 (/100 WBCs) Final Performing Location LABORATORY [facility] [place] - [address] [place] [address]
--- OUTSIDE RECORDS SUMMARY | 2023-06-30 22:51 | External Medical Summary ---
Author Name Unknown Address Unknown Organization K01:LABORATORY C - [address] [facility] [place] [address] Laboratory Report Ordering Provider Test Date Status STUART,KEITH 05/13/2023 06:27:00 Final Observation Date Value Abnormality Reference (Units ) Status SYNC LEUKOCYTES IN BLOOD BY AUTOMATED COUNT 05/13/2023 06:27:00 3.98 Below low normal 4.00-10.80 (K/uL) Final Neutrophils/100 leukocytes in Blood by Manual count 05/13/2023 06:27:00 14.0 Below low normal 40.0-75.0 (%) Final Lymphocytes/100 leukocytes in Blood by Manual count 05/13/2023 06:27:00 65.0 Above high normal 18.0-42.0 (%) Final Monocytes/100 leukocytes in Blood by Manual count 05/13/2023 06:27:00 8.0 1.0-11.0 (%) Final Eosinophils/100 leukocytes in Blood by Manual count 05/13/2023 06:27:00 11.0 Above high normal 0.0-6.0 (%) Final Basophils/100 leukocytes in Blood by Manual count 05/13/2023 06:27:00 2.0 0.0-2.0 (%) Final Neutrophils [#/volume] in Blood by Manual count 05/13/2023 06:27:00 0.56 Below low normal 1.80-7.70 (K/uL) Final Lymphocytes [#/volume] in Blood by Manual count 05/13/2023 06:27:00 2.59 1.00-4.80 (K/uL) Final Monocytes [#/volume] in Blood by Manual count 05/13/2023 06:27:00 0.32 0.00-1.10 (K/uL) Final Eosinophils [#/volume] in Blood by Manual count 05/13/2023 06:27:00 0.44 0.00-0.70 (K/uL) Final Basophils [#/volume] in Blood by Manual count 05/13/2023 06:27:00 0.08 0.00-0.20 (K/uL) Final Dohle body [Presence] in Blood by Light microscopy 05/13/2023 06:27:00 Present Abnormal None Seen Final Performing Location LABORATORY [facility] [place] - [address] [facility] [address]
--- OUTSIDE RECORDS SUMMARY | 2023-06-30 22:51 | External Medical Summary ---
Author Name Unknown Address Unknown Organization K01:[facility]ORY [facility] [place] [address] [place] [address] Laboratory Report Ordering Provider Test Date Status KEITH DAVIDSON 05/11/2023 05:00:00 Final Observation Date Value Abnormality Reference (Units ) Status BUN 05/11/2023 05:00:00 19 6-20 (mg/dL) Final Creatinine 05/11/2023 05:00:00 1.0 0.5-1.0 (mg/dL) Final Glomerular filtration rate/1.73 sq M.predicted [Volume Rate/Area] in Serum, Plasma or Blood by Creatinine-based formula (CKD-EPI) 05/11/2023 05:00:00 62 >=60 (mL/min) Final eGFR is calculated based on the CKD-EPI 2020 equation Sodium 05/11/2023 05:00:00 140 135-146 (m mol/L) Final Potassium 05/11/2023 05:00:00 3.9 3.5-5.1 (m mol/L) Final Cl 05/11/2023 05:00:00 109 Above high normal 98 -107 (mmol/L) Final CO2 05/11/2023 05:00:00 23 22-32 (mmo l/L) Final Anion gap 05/11/2023 05:00:00 8 7-15 (mmol /L) Final Glucose 05/11/2023 05:00:00 98 70-120 (mg /dL) Final Calcium 05/11/2023 05:00:00 8.3 Below low normal 8.4 -10.2 (mg/dL) Final Performing Location LAB[facility]ORY [facility] [place] [address] [place] [address]
--- OUTSIDE RECORDS SUMMARY | 2023-06-30 22:52 | External Medical Summary | Summary of Care ---
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 1 Inhaler 5 04/21/2018 Active Econazole Nitrate 1 % External Cream (Spectazole)Indicatio ns:Tinea pedis of both feet,Onychomycosis Apply 2x daily from ankles down to feet/nails 2x daily for about 1 month until resolved, then 2x weekly to maintain clearance 170 g 2 11/21/2021 Active Solifenacin Succinate 5 MG Oral Tablet (VESIcare) Take 1 Tablet by mouth in the morning. 90 Tablet 3 06/21/2022 Active Azelastine HCl 137 MCG/SPRAY Nasal SolutionIndications:C [...] 05/01/2023 Prochlorperazine Maleate 10 MG Oral Tablet (Compazine)Indication [...] throughout chemotherapy. 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 Chronic neutropenia 01/06/2018 documented as of this encounter (statuses as of 05/02/2023) Resolved Problems Problem Noted Date Diagnosed Date Resolved Date Chronic kidney disease, stage 3b 04/30/2022 05/01/2023 Overview: Per CKD protocol Chronic kidney disease, stage 3a 05/29/2021 05/02/2022 Overview: Per CKD protocol Fever 09/13/2015 10/21/2017 Kidney stone on left side Inguinal hernia 10/21/2017 Overview: Surgical repair Neutropenia 10/21/2017 documented as of this encounter (statuses as of 05/02/2023) Immunizations Name Administration Dates Next Due COVID-19 mRNA, LNP-s, No Pre serve, 2-Dose Series (Leotus) 01/05/2021,05/07/2020,04/16/2020 COVID-19, LNP-s, No Preserve , Jasbir-sucrose, [...] Not Answered Alcohol Use Standard Drinks/Week Comments Yes 4.2 [...] Sign Reading Time Taken Comments Blood Pressure 114/68 05/01/2023 11:15 AM EDT Pulse 72 05/01/2023 11:15 AM EDT Temperature 36 C (96.8 F) 05/01/2023 11:15 AM EDT Respiratory Rate 18 05/01/2023 11:15 AM EDT Oxygen Saturation - - Inhaled Oxygen Concentration - - Weight 54.5 kg (120 lb 3.2 oz) 05/01/2023 11:15 AM EDT Height - - Body Mass Index 19.55 03/26/2023 11:00 AM EST documented in this encounter Patient Instructions * Patient Instructions* Laci Dye MD - 05/01/2023 11:16 AM EDT Recommendations: Please stop vitamins/supplements/NSAIDS ( aleve/motrin/diclofenac ) 10 days before the surgery. On the morning of surgery: Do not take any medications. documented in this encounter Progress Notes * Laci Dye MD - 05/01/2023 11:15 AM EDT Preoperative Medical Optimization and Risk Assessment General Internal Medicine Lin[facility] Estrella [phone] 05/01/2023 Being seen in consultation at the request of: Saul Vargas MD PCP: KVNG LIZARRAGA Pre-operative evaluation for: hysterectomy, bilateral salpingoophorectomy with cystectomy, ileal conduit Date of procedure: Assessment and Recommendations: She is medically optimized and I recommend proceeding with surgery understanding the risks and benefits 1. Cardiovascular Risk Assessment: Does patient have Coronary artery disease? No Has patient had a coronary stent inserted in the past year? No The patient's functional status is good (greater than 4 METS). The patient is scheduled for elective hysterectomy, bilateral salpingoophorectomy with cystectomy, ileal conduit which is an intermediate risk surgical procedure. The patient's Revised cardiac risk index(RCRI) score is 0/6, with a 3.9% 30-day risk of , [place], or cardiac arrest (2.8-5.4%, 95% CI) The patient's risk is acceptable and she should proceed to surgery without further testing. 2. Pulmonary Risk Assessment Screening for obstructive sleep apnea: negative. She has no lung conditions. 3. Pain control Pain management to be determined by surgical service. There are no significant recommendations for this specific patient. 4. Venous Thromboembolism (VTE) Prophylaxis Selection of VTE prophylaxis is at the discretion of the surgeon. If the patient is to receive coumadin, she should receive low molecular weight heparin for VTE prophylaxis until they have reached a therapeutic INR for 48 hours. 5. Adrenal Insufficiency Risk Stratification: Steroid exposure in past year includes: denies Risk of iatrogenic adrenal insufficiency is low: no treatment necessary. If additional corticosteroids are indicated, dosing should be based on surgical stress. Surgical stress is not applicable: patient does not require additional corticosteroids. 6. Chronic kidney disease: The patients baseline creatinine is 1.3 corresponding to a GFR of 44. Please avoid all nephrotoxic medications including any NSAIDs. Medication doses may need to be adjusted based on renal function; if there are any concerns please discuss with inpatient pharmacy. 7. History of problems with anesthesia: denies 8. History of surgical complications: denies 9. Instructions for medications on the morning of surgery: Take NO medications on the morning of surgery. Condition for which surgery is to be performed: High-risk nonmuscle invasive bladder cancer , left upper urinary tract urothelial carcinoma. . Current active medical problems and status: 73 Y/O female with PMH of Neutropenia ( on Filgrastim ), CKD and bladder CA presented for pre op exam and med optimization prior to undergoing elective Urological surgery. FC > 4 METS Denies any CP/JARVIS/Orthopnea/PND/Leg swellings. No h/o DVT/PE Non smoker Past Medical History: Diagnosis Date Inguinal hernia 02/18/1999 Surgical repair Kidney stone on left side 02/19/1996 Leukemia (HCC) Large granular lymphocytic leukemia Neutropenia (HCC) PONV (postoperative nausea and vomiting) Past Surgical History: Procedure Laterality Date CYSTOSCOPY/TREAT MINOR LESION(S) N/A 01/09/2021 CYSTOURETHROSCOPY WITH FULGURATION MINOR BLADDER TUMOR performed by Chris Royal MD at OR [facility] CYSTOSCOPY/TREAT MINOR LESION(S) N/A 06/05/2021 CYSTOURETHROSCOPY WITH FULGURATION MINOR BLADDER TUMOR performed by Chris Royal MD at [facility] CYSTOSCOPY/TREAT SML BLADDER TUMOR N/A 02/04/2023 CYSTOURETHROSCOPY WITH FULGURATION SMALL BLADDER TUMOR [facility] [place]EDURE NEC INCISION OF WINDPIPE, PLANNED Left 02/04/2017 TRACHEOSTOMY PLANNED performed by Nick Singh DO at [place] [facility] INFORMATION 02/04/2017 never had a trach INFORMATION 1989 kidney stone removal LAPARO REMOVE K/URETER Left 02/01/2021 LAPAROSCOPIC NEPHRECTOMY TOTAL URETERECTOMY performed by Chris Royal MD at OR [facility] LARYNGOSCOPY, VOCAL CORD EXCISION/STRIPPING Left 02/04/2017 LARYNGOSCOPY DIRECT STRIPPING VOCAL CORD WITH MICROSCOPE performed by Nick Singh DO at OR [facility] REPAIR INITIAL INGUINAL HERNIA REDUCIBLE AGE 5 OR MORE 02/18/1999 Current Outpatient Medications Medication Sig Dispense Refill PROBIOTIC DAILY PO CAPS daily Calcium Carbonate-Vitamin [...] 2 TIMES A DAY. 90 mL 3 Filgrastim-sndz 480 MCG/0.8ML Injection Solution Prefilled Syringe (Zarxio) Administer 480 mcg (1 syringe) 4 days a week throughout chemotherapy. 12.8 mL 5 MULTIVITAMINS PO TABS 1 TABLET DAILY (Patient not taking: Reported on 05/01/2023) Ondansetron HCl 8 MG Oral Tablet (Zofran) Take 1 Tablet by mouth every 8 hours as needed for Nausea. (Patient not taking: Reported on 05/01/2023) 30 Tablet 2 Prochlorperazine Maleate 10 MG Oral Tablet (Compazine) Take 1 Tablet by mouth every 6 hours as needed for Nausea. (Patient not taking: Reported on 05/01/2023) 30 Tablet 2 No current facility-administered medications for this visit. Family history is non-contributory. Social History Tobacco Use Smoking status: Never Passive exposure: Never Smokeless tobacco: Never Substance Use Topics Alcohol use: Yes Alcohol/week: 4.2 standard drinks of alcohol Types: 5 5 oz of wine per week Comment: occ Vaping/E-Cigarette Use Vaping/E-Cigarette Use Never User Vaping/E-Cigarette Substances Nicotine No Other No Flavoring No THC No Cannabidiol (CBD) No Vaping/E-Cigarette Devices Disposable No Pre-filled or Refillable Cartridge No Refillable Tank No Pre-filled Pod No Review of Systems Constitutional: Negative. HENT: Negative. Eyes: Negative. Respiratory: Negative. Cardiovascular: Negative. Gastrointestinal: Negative. Endocrine: Negative. Musculoskeletal: Negative Skin: Negative. Allergic/Immunologic: Negative. Neurological: Negative. Hematological: Negative. Psychiatric/Behavioral: Negative. Physical exam: BP 114/68 (BP Site: Right Arm, BP Position: Sitting, BP Cuff Size: Regular) | Pulse 72 | Temp 36 C (96.8 F) (Tympanic) | Resp 18 | Wt 54.5 kg (120 lb 3.2 oz) | BMI 19.55 kg/m | BSA 1.59 m Body mass index is 19.55 kg/m. Physical Exam Constitutional: General: She is not in acute distress. Appearance: Normal appearance. She is not toxic-appearing. HENT: Head: Normocephalic and atraumatic. Right Ear: External ear normal. Left Ear: External ear normal. Nose: Nose normal. Eyes: Conjunctiva/sclera: Conjunctivae normal. Cardiovascular: Rate and Rhythm: Normal rate and regular rhythm. Pulses: Normal pulses. Heart sounds: Normal heart sounds. Pulmonary: Effort: Pulmonary effort is normal. Breath sounds: Normal breath sounds. Musculoskeletal: Right lower leg: No edema. Left lower leg: No edema. Skin: General: Skin is warm. Neurological: General: No focal deficit present. Mental Status: She is alert and oriented to person, place, and time. Psychiatric: Mood and Affect: Mood normal. Behavior: Behavior normal. Labs are significant for: creat ( 1.3 ) EKG by my review : Normal sinus rhythm , no acute ST/T wave changes IMPRESSIONS: ICD-10-CM 1. Pre-operative examination for internal medicine Z01.818 2. Chronic kidney disease, stage 3a (HCC) N18.31 3. 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 Patient demonstrates understanding of the visit, course of treatment, and instructions. Thoroughly discussed alarming symptoms that would indicate need for emergent care/treatment. All questions were answered and patient agrees to plan of care Laci Dye MD 05/01/2023 11:15 AM documented in this encounter Plan of Treatment Upcoming Encounters Date Type Department Care Team (Latest Contact Info) Description 05/08/2023 10:00 AM EDT Hospital Encounter [place] [facility], OPERATING ROOM [facility] [address] [place] [address] Saul Vargas MD [address] [place] [address] 05/08/2023 10:00 AM EDT - 05/08/2023 5:46 PM EDT Surgery OR [facility], OPERATING ROOM [facility] [address] [place] [address] Saul Vargas MD [address] [place] [address] CYSTECTOMY COMPLETE WITH URETEROILEAL CONDUIT WITH BILATERAL PELVIC LYMPHADENECTOMY 06/10/2023 10:30 AM EDT Office Visit Urology, [facility] [address] [place] [address] Chris Royal MD [address] [facility] [address] [place] [address] 06/11/2023 1:45 PM EDT Office Visit Urology, [place] [address] [place] [address] Saul Vargas MD [address] [place] [address] 06/24/2023 10:40 AM EDT Office Visit Nephrology, [facility] [address] [facility] [place] [address] Demetrius Sherman MD [address] [place] [address] 07/25/2023 11:15 AM EDT Office Visit Hematology/[facility]colog [facility] [address] [facility], [place] [id number] Aguilar Lizarraga MD [address] [facility] [place] [address] 11/12/2023 9:20 AM EDT Office Visit General Internal Medicine [facility] [address] [facility] [place] [address] Kvng Lizarraga MD [address] [facility] [place] [address] Scheduled Procedures Name Priority Associated Diagnoses Date/Ti me CYSTECTOMY COMPLETE WITH URETEROILEAL CONDUIT WITH BILATERAL PELVIC LYMPHADENECTOMY 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) 05/08/2023 10:00 AM EDT Health Maintenance Due Date Last Done Comments Zoster Vaccines (1 of 2) 01/23/1971 Colonoscopy 01/23/1997 Fecal Occult Blood Test 01/23/1997 Sigmoidoscopy 01/23/1997 DTaP,Tdap,and Td Vaccines (2 - Td or Tdap) 09/02/2022 09/02/2012 Albumin/Creatinine Ratio 03/13/2023 03/13/2022, 10/20 CKD PHOS USE SMARTSET [id number] 03/13/2023 03/13/2022, 0 11/09/2021 Cologuard 06/09/2023 06/08/2020, 10/25/2016 Colorectal Cancer Screening 06/09/2023 Mammogram 10/12/2023 10/11/2022, 05/0 04/2021, 01/18/2020, Additional history exists GFR 10/27/2023 04/26/2023, 03/0 02/2023, 04/12/2023, Additional history exists Depression Screening 11/07/2023 11/06/2022 CKD HGB USE SMARTSET [id number] 04/25/202404/25, 04/26/2023, 04/19/2023, Additional history exists DXA Scan 10/02/2024 10/02/2022, [...] Malignant neoplasm of dome of urinary bladder Pre-operative examination for internal medicine- Primary Other specified pre-operative examination Chronic kidney disease, stage 3a (HCC) 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 Question Answer Comments Discussion of Advance Directives occurred with: Patient Code Status History Code Status Date Activated Date Inactivated Comments Full Code 02/04/2023 7:26 AM 02/04/2023 9:25 [...] and were consensually agreed upon. Full Code 02/01/2021 3:23 PM 02/03/2021 4:29 PM Thi s order reflects the patients wishes and were consensually agreed upon. Care Teams Refinery Technician Relationship Specialty Start Date End Date Kvng Lizarraga MD [address] [place] [address] PCP - General Internal Medicine 03/10/12 documented as of this encounter"
--- OUTSIDE RECORDS SUMMARY | 2023-06-30 22:52 | External Medical Summary ---
Author Name Unknown Address Unknown Organization K09:[facility]ATORY [place] [address] Laboratory Report Ordering Provider Test Date Status KEN RAY 04/26/2023 10:31:10 Final Observation Date Value Abnormality Reference (Units ) Status Magnesium 04/26/2023 10:31:10 2.1 1.5-2.6 (m g/dL) Final Performing Location [facility] [place] [address]
--- OUTSIDE RECORDS SUMMARY | 2023-06-30 22:52 | External Medical Summary | Summary of Care ---
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)* Allergies Active Allergy Reactions Criticality Noted Date Comments Penicillins Edema airway,Rash High 03/10/2012 Last dose age 14 Pollen 01/17/2021 Ragweed 11/05/2022 documented as of this encounter (statuses as of 04/30/2023) Medications Medication Sig Dispensed Refills Start Date [...] 06/21/2022 Active Azelastine HCl 137 MCG/SPRAY Nasal SolutionIndications: [...] urinary bladder (HCC),Encounter for antineoplastic chemotherapy Administer 480mcg (1 syringe) 4 days a week throughout chemotherapy 12.8 mL 5 03/01/2023 Active documented as of this encounter (statuses as of 04/30/2023) Active Problems Problem Noted Date Diagnosed Date Encounter for antineoplastic chemotherapy 2023 Postmenopausal atrophic vaginitis 09/04/2022 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 Chronic kidney disease, stage 3b 04/30/2022 Overview: Per CKD protocol Urgency of urination 01/17/2021 Malignant neoplasm of dome of urinary bladder Hydronephrosis, left 11/23/2020 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 Other neutropenia 11/14/2018 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 Chronic neutropenia 01/06/2018 documented as of this encounter (statuses as of 04/30/2023) Resolved Problems Problem Noted Date Diagnosed Date Resolved Date Chronic kidney disease, stage 3a 05/29/2021 05/02/2022 Overview: Per CKD protocol Fever 09/13/2015 10/21/2017 Kidney stone on left side Inguinal hernia 10/21/2017 Overview: Surgical repair Neutropenia 10/21/2017 documented as of this encounter (statuses as of 04/30/2023) Immunizations Name Administration Dates Next Due COVID-19 mRNA, LNP-s, No Pre serve, 2-Dose Series ([employer]) 01/05/2021,05/07/2020,04/16/2020 COVID-19, LNP-s, No Preserve , Jasbir-sucrose, [...] on file documented as of this encounter Progress Notes * Saul Vargas MD - 04/30/2023 8:16 AM EDT Urology Telephonic Visit After connecting to the patient via telephone, the patient was identified by name and date of . Patient was then informed that this was a telephone call only visit. The patient agreed to participate. Spoke to patient. Addressed all her questions related to her upcoming surgery to her apparent satisfaction. Visit Disposition: Routine Follow-up Total call duration was 5 minutes. documented in this encounter Plan of Treatment Upcoming Encounters Date Type Department Care Team (Latest Contact Info) Description 05/01/2023 11:20 AM EDT Office Visit General Internal Medicine, [facility] [address], [place] [phone] Laci Dye MD [address], [place] [phone] 05/08/2023 10:00 AM EDT [facility] [address], [place] [phone] Saul Vargas MD [address], [place] [phone] 05/08/2023 10:00 AM EDT - 05/08/2023 5:46 PM EDT Surgery [facility] O[facility]ATING [facility] [address] [place] [address] Saul Vargas MD [address] [place] [address] CYSTECTOMY COMPLETE WITH URETEROILEAL CONDUIT WITH BILATERAL PELVIC LYMPHADENECTOMY 06/10/2023 10:30 AM EDT Office Visit Urology, [facility] [address] [facility] [place] [address] Chris Royal MD [address] [facility] [address] [place] [address] 06/11/2023 1:45 PM EDT Office Visit Urology, [place] [address] [place] [address] Saul Vargas MD [address], [place] [phone] 06/24/2023 10:40 AM EDT Office Visit Nephrology, [facility] [address] [place] [address] Demetrius Sherman MD [address] [place] [address] 07/25/2023 11:15 AM EDT Office Visit Hematology/Oncolog y [facility] [address] [facility] [place] [address] Aguilar Lizarraga MD [address] [facility] [place] [address] 11/12/2023 9:20 AM EDT Office Visit General Internal Medicine [facility] [place] [address] [place] [address] Nichole Lizarraga MD [address] [facility] [place] [address] Scheduled Procedures Name Priority Associated Diagnoses Date/Ti [...] 03/13/2023 03/13/2022, 10/20 CKD PHOS USE SMARTSET 33254 03/13/2023 03/13/2022, 0 11/09/2021 Cologuard 06/09/2023 06/08/2020, 10/25/2016 Colorectal Cancer Screening 06/09/2023 Mammogram 10/12/2023 10/11/2022, 05/0 04/2021, 01/18/2020, Additional history exists GFR 10/27/2023 04/26/2023, 03/0 02/2023, 04/12/2023, Additional history exists Depression Screening 11/07/2023 11/06/2022 CKD HGB USE SMARTSET 05255 04/25/202404/25, 04/26/2023, 04/19/2023, Additional history exists DXA [...] and were consensually agreed upon. Care Teams Judicial Administrative Assistant Relationship Specialty Start Date End Date Nichole Lizarraga MD [address] [place] [address] PCP - General Internal Medicine 03/10/12 documented as of this encounter
--- OUTSIDE RECORDS SUMMARY | 2023-06-30 22:52 | External Medical Summary ---
Author Name Unknown Address Unknown Organization [id number]:[facility] [place] [address] [facility] [address] Laboratory Report Ordering Provider Test Date Status MABLE LAZCANO JR 05/08/2023 12:13:01 Final Observation Date Value Abnormality Reference (Units ) Status Body temperature 05/08/2023 12:13:01 37.0 (C) Final pH of Arterial blood 05/08/2023 12:13:01 7.328 Below low normal 7.350-7.450 (units) Final Carbon dioxide [Partial pressure] in Arterial blood 05/08/2023 12:13:01 41.9 35.0-45.0 (mmHg) Final Oxygen [Partial pressure] in Arterial blood 05/08/2023 12:13:01 315.0 Above high normal 75.0-100.0 (mmHg) Final Base excess, Arterial 05/08/2023 12:13:01 -3.8 Below low normal -2.0-2.0 (mmol/L) Final Hemoglobin [Mass/volume] in Blood by Oximetry 05/08/2023 12:13:01 10.5 Below low normal 12.0-15.3 (g/dL) Final HCT, calc. 05/08/2023 12:13:01 32.6 Below low normal 36.0-45.2 (%) Final The Hematocrit reference int erval is based on adult population.
This method is intended for trending and screening purposes only.
A "Complete Blood Count" is more accurate and should be ordered if clinically indicated. Oxyhemoglobin, Arterial (FO2HB) 05/08/2023 12:13:01 97.7 94.0-99.0 (% total Hgb) Final Carboxyhemoglobin 05/08/2023 12:13:01 1.1 <= 1.5 (% total Hgb) Final Smokers: 0-9.0 % Methemoglobin 05/08/2023 12:13:01 0.8 <=1.5 (% total Hgb) Final Deoxyhemoglobin/Hemog lobin.total in Arterial blood 05/08/2023 12:13: 0.4 0.0-5.0 (% total Hgb) Final Oxygen content in Arterial blood 05/08/2023 12:13: 15.3 15.0-24.0 (%vol) Final Potassium, Whole Blood 05/08/2023 12:13:01 4.0 3.5-5.1 (mmol/L) Final Sodium, Whole Blood 05/08/2023 12:13:01 143 135-146 (mmol/L) Final Chloride, Whole Blood 05/08/2023 12:13:01 110 Above high normal 98-107 (mmol/L) Final Calcium.ionized [Moles/volume] in Blood by Ion-selective membrane electrode (ISE) 05/08/2023 12:13:01 1.12 Below low normal 1.13-1.32 (mmol/L) Final Anion gap, Whole Blood 05/08/2023 12:13:01 11.6 7.0-15.0 (mmol/L) Final Glucose, whole blood 05/08/2023 12:13:01 119 70-120 (mg/dL) Final Oxygen/Total gas setting [Volume Fraction] Ventilator 05/08/2023 12:13:01 Not Provided (%) Final O2 FLOW, ARTERIAL - [facility] 05/08/2023 12:13:01 Not Provided (L/min) Final Bicarbonate, Venous, POC (i-STAT) 05/08/2023 12:13:01 21.4 Below low normal 23.0-31.0 (mmol/L) Final Performing Location [facility] [place] [address] [facility] [address]
--- OUTSIDE RECORDS SUMMARY | 2023-06-30 22:52 | External Medical Summary ---
Author Name Unknown Address Unknown Organization K09:[facility] - [address] [place] [address] Laboratory Report Ordering Provider Test Date Status KEN RAY 05/03/2023 10:38:16 Final Observation Date Value Abnormality Reference (Units ) Status BUN 05/03/2023 10:38:16 16 6-20 (mg/dL) Final Creatinine 05/03/2023 10:38:16 1.3 Above high normal 0.5-1.0 (mg/dL) Final Glomerular filtration rate/1.73 sq M.predicted [Volume Rate/Area] in Serum, Plasma or Blood by Creatinine-based formula (CKD-EPI) 05/03/2023 10:38:16 45 Below low normal >=60 (mL/min) Final eGFR is calculated based on the CKD-EPI 2020 equation SODIUM 05/03/2023 10:38:16 141 135-146 (m mol/L) Final Potassium 05/03/2023 10:38:16 4.5 3.5-5.1 (m mol/L) Final Cl 05/03/2023 10:38:16 108 Above high normal 98 -107 (mmol/L) Final CO2 05/03/2023 10:38:16 25 22-32 (mmo l/L) Final Anion gap 05/03/2023 10:38:16 8 7-15 (mmol /L) Final Glucose 05/03/2023 10:38:16 93 70-120 (mg /dL) Final Albumin 05/03/2023 10:38:16 3.8 3.8-5.0 (g /dL) Final AST (Aspartate aminotransferase) 05/03/2023 10:38:16 16 10-35 (U/L) Fin al Alk Phos 05/03/2023 10:38:16 75 35-130 (U/ L) Final Bilirubin, Total 05/03/2023 10:38:16 0.6 <=1 .2 (mg/dL) Final Calcium 05/03/2023 10:38:16 9.3 8.4-10.2 ( mg/dL) Final Protein 05/03/2023 10:38:16 7.1 6.0-8.3 (g /dL) Final ALT (Alanine aminotransferase) 05/03/2023 10:38:16 5 Below low normal 10-35 (U/L) Final Performing Location [facility] [address] [place] [address]
--- OUTSIDE RECORDS SUMMARY | 2023-06-30 22:52 | External Medical Summary ---
Author Name Unknown Address Unknown Organization K01:[facility] - [facility] [address] [facility] [address] [place] [address] Laboratory Report Ordering Provider Test Date Status SUE COLINDRES 05/08/2023 16:24:05 Final Observation Date Value Abnormality Reference (Units ) Status BUN 05/08/2023 16:24:05 17 6-20 (mg/dL) Final Creatinine 05/08/2023 16:24:05 1.1 Above high normal 0.5-1.0 (mg/dL) Final Glomerular filtration rate/1.73 sq M.predicted [Volume Rate/Area] in Serum, Plasma or Blood by Creatinine-based formula (CKD-EPI) 05/08/2023 16:24:05 53 Below low normal >=60 (mL/min) Final eGFR is calculated based on the CKD-EPI 2020 equation Sodium 05/08/2023 16:24:05 140 135-146 (m mol/L) Final Potassium 05/08/2023 16:24:05 4.1 3.5-5.1 (m mol/L) Final Cl 05/08/2023 16:24:05 106 98-107 (mm ol/L) Final CO2 05/08/2023 16:24:05 21 Below low normal 22- 32 (mmol/L) Final Anion gap 05/08/2023 16:24:05 13 7-15 (mmol /L) Final Glucose 05/08/2023 16:24:05 141 Above high normal 70 -120 (mg/dL) Final Calcium 05/08/2023 16:24:05 8.6 8.4-10.2 ( mg/dL) Final Performing Location LAB[facility]ORY [facility] - [address] [place] [address]
--- OUTSIDE RECORDS SUMMARY | 2023-06-30 22:52 | External Medical Summary ---
Author Name Unknown Address Unknown Organization K09:[facility] [place] [address] Laboratory Report Ordering Provider Test Date Status KEN RAY 05/03/2023 10:38:16 Final Observation Date Value Abnormality Reference (Units ) Status Magnesium 05/03/2023 10:38:16 2.1 1.5-2.6 (m g/dL) Final Performing Location [facility] [place] [address]
--- OUTSIDE RECORDS SUMMARY | 2023-06-30 22:52 | External Medical Summary ---
Author Name Unknown Address Unknown Organization : Laboratory Report Ordering Provider Test Date Status RAMILA ROSE 05/08/2023 09:39:06 Final Observation Date Value Abnormality Reference (Units ) Status Glucose Point of Care 05/08/2023 09:39:06 88 70-120 (mg/dL) Final Performing Location
--- OUTSIDE RECORDS SUMMARY | 2023-06-30 22:52 | External Medical Summary | Summary of Care ---
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)*; Pre-op testing Allergies Active Allergy Reactions Criticality Noted Date Comments Penicillins Edema airway,Rash High 03/10/2012 Last dose age 14 Pollen 01/17/2021 Ragweed 11/05/2022 documented as of this encounter (statuses as of 04/26/2023) Medications Medication Sig Dispensed Refills Start Date [...] as of this encounter (statuses as of 04/26/2023) Active Problems Problem Noted Date Diagnosed Date [...] as of this encounter (statuses as of 04/26/2023) Resolved Problems Problem Noted Date Diagnosed Date Resolved Date Chronic kidney disease, stage 3a 05/29/2021 05/02/2022 Overview: Per CKD protocol Fever 09/13/2015 10/21/2017 Kidney stone on left side Inguinal hernia 10/21/2017 Overview: Surgical repair Neutropenia 10/21/2017 documented as of this encounter (statuses as of 04/26/2023) Immunizations Name Administration Dates Next Due COVID-19 mRNA, LNP-s, No Pre serve, 2-Dose Series ([employer]) 01/05/2021,05/07/2020,04/16/2020 COVID-19, LNP-s, No Preserve , Jasbir-sucrose, [...] Sign Reading Time Taken Comments Blood Pressure 124/83 04/25/2023 11:26 AM EST Pulse 78 04/25/2023 11:26 AM EST Temperature - - Respiratory Rate - - Oxygen Saturation - - Inhaled Oxygen Concentration - - Weight - - Height - - Body Mass Index - - documented in this encounter Progress Notes * Kin Joseph PA-C - 04/25/2023 12:00 PM EST HISTORY AND PHYSICAL EXAMINATION - Urology Name: Linsey Estrella Date: 04/25/2023 Time: 12:07 PM PCP: Nichole Lizarraga MD [address] [place] [address] [place] [address] C/c Pre-operative History and Physical HPI: This 73 year old female presents to the clinic today, 04/25/2023, for pre- operative H&P for planned [...] 1-2 times daily without straining to defecate. The patient denies hematuria, dysuria, obstructive or irritative voiding complaints, flank pain, f/c, n/v/c/d. The patient denies h/o TIA/CVA, DC, sleep apnea, DVT/PE, or DM. PAST MEDICAL HISTORY: Past Medical History: Diagnosis Date Inguinal hernia 02/18/1999 Surgical repair Kidney stone on left side 02/19/1996 Leukemia (HCC) Large granular lymphocytic leukemia Neutropenia (HCC) PONV (postoperative nausea and vomiting) Patient Active Problem List Diagnosis Code Chronic [...] chemotherapy Z51.11 PAST SURGICAL HISTORY: Past Surgical History: Procedure Laterality Date CYSTOSCOPY/TREAT MINOR LESION(S) N/A 01/09/2021 CYSTOURETHROSCOPY WITH FULGURATION MINOR BLADDER TUMOR performed by Chris Royal MD at OR [facility] CYSTOSCOPY/TREAT MINOR LESION(S) N/A 06/05/2021 CYSTOURETHROSCOPY WITH FULGURATION MINOR BLADDER TUMOR performed by Chris Royal MD at OR [facility] CYSTOSCOPY/TREAT SML BLADDER TUMOR N/A 02/04/2023 CYSTOURETHROSCOPY WITH FULGURATION SMALL BLADDER TUMOR performed by Chris Royal MD at [facility] DENTAL SURGERY PROCEDURE NEC INCISION OF WINDPIPE, PLANNED Left 02/04/2017 TRACHEOSTOMY PLANNED performed by Nick Singh DO at [facility] [address] [address] INFORMATION 02/04/2017 never had a trach INFORMATION 1989 kidney stone removal LAPARO REMOVE K/URETER Left 02/01/2021 LAPAROSCOPIC NEPHRECTOMY TOTAL URETERECTOMY performed by Chris Royal MD at [facility] LARYNGOSCOPY, VOCAL CORD EXCISION/STRIPPING Left 02/04/2017 LARYNGOSCOPY DIRECT STRIPPING VOCAL CORD WITH MICROSCOPE performed by Nick Singh DO [place] [facility] REPAIR INITIAL INGUINAL HERNIA REDUCIBLE AGE 5 OR MORE 02/18/1999 FAMILY HISTORY: Family Status Relation Status Mo Alive Fa [...] file Housing Stability: Not on file Current Outpatient Medications Medication Sig Dispense Refill [...] normal/negative PHYSICAL EXAMINATION: Most Recent Vital Signs: BP 124/83 (BP Site: Left Arm, BP Position: Sitting, BP Cuff Size: Regular) | Pulse 78 General: alert, awake, oriented to person and place and situation, no distress, thin Skin: Warm, dry, w/o rash or diaphoresis HEAD: Normocephalic, atraumatic Heart: regular rate, regular rhythm, no murmur Chest: clear to auscultation bilaterally Abdomen: soft, non-tender, non-distended, normal bowel sounds Back: no costo-vertebral angle tenderness Extremities: no edema Impression: 1. Pre-operative Examination 2. 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 Plan: - Patient tentatively scheduled for hysterectomy, bilateral salpingoophorectomy with cystectomy, ileal conduit by Dr. Saul Vargas on 05/08/2023 - Pre-op labs: CBC, CMP completed 04/19/2023. Type and screen, Urine Culture clean-catch ordered today - Pre-Op diagnostics ordered: EKG completed 01/21/2023 - Pre-operative anticoagulation management includes: discontinuation of multi- vitamin 1 week prior to procedure - Reviewed the rationale, risks, and benefits of the procedure. The patient has no questions regarding the risks of surgery. - Pt was instructed to notify clinic with any changes to health status prior to procedure. - Pt will receive preop antibiotics and early mobilization to decrease surgical risks. - Pt knows to be NPO (nothing by mouth) after midnight the night before surgery. Pt informed to take any necessary meds with sips of water only. - The following PREP was reviewed and given to the patient: ERAS nutritional support - Patient handouts given for: Adverse reaction, patient instructions - Patient's questions regarding the preparations as well as the procedure were answered to the bestof my ability. Patient was agreeable to everything that was discussed and displayed an understanding of all information given. Will proceed as planned. - Consent day of procedure -GIM medical optimization scheduled for 04/25/2023 Kin Joseph PA-C Department of Urology [facility] 04/25/2023 12:07 PM documented in this encounter Nursing Notes * Steffi Acevedo RN - 04/26/2023 8:40 PM EST Late Entry: Reviewed ERAS with patient and spouse. Patient was able to demonstrate use of IS effectively. Gave bag with IS, soap, Breeze and handout. Patient is on a strict renal diet and did not want to take the protein shakes. She will use boost protein shakes that only have 10 grams of protein. Will update Dr. Vargas. Steffi Acevedo RN, BSN 04/26/2023 8:43 PM documented in this encounter Plan of Treatment Upcoming Encounters Date Type Department Care Team (Latest Contact Info) Description 04/30/2023 8:15 AM EDT Telemedicine Urology, [place] [address] [place] [address] Saul Vargas MD [address] [place] [address] 05/01/2023 11:20 AM EDT Office Visit General Internal Medicine, [facility] [address] [place] [address] Laci Dye MD [address] [place] [address] 05/08/2023 10:00 AM EDT Hospital Encounter [place] [facility] OPERATING ROOM [facility] [address] [address] [place] [address] Saul Vargas MD [address] [place] [address] 05/08/2023 10:00 AM EDT - 05/08/2023 5:46 PM EDT Surgery [place] [facility] [address] [place] [address] Saul Vargas MD [address] [place] [address] CYSTECTOMY COMPLETE WITH URETEROILEAL CONDUIT WITH BILATERAL PELVIC LYMPHADENECTOMY 06/10/2023 10:30 AM EDT Office Visit Urology, [facility] [address] [place] [address] Chris Royal MD [address] [facility] [address] [place] [address] 06/11/2023 1:45 PM EDT Office Visit Urology, [place] [address] [place] [address] Saul Vargas MD [address], [place] [id number] 06/24/2023 10:40 AM EDT Office Visit Nephrology, [facility] [address] [facility] [place] [address] Demetrius Sherman MD [address] [facility] [place] [address] 07/25/2023 11:15 AM EDT Office Visit Hematology/Oncolog y [facility] [address] [facility] [place] [address] Aguilar Lizarraga MD [address] [facility] [place] [address] 11/12/2023 9:20 AM EDT Office Visit General Internal Medicine [facility] [address] [facility] [place] [address] Nichole Lizarraga MD [address] [facility] [place] [address] Scheduled Procedures Name Priority Associated Diagnoses Date/Ti [...] 03/13/2023 03/13/2022, 10/20 CKD PHOS USE SMARTSET 95609 03/13/2023 03/13/2022, 0 11/09/2021 Cologuard 06/09/2023 06/08/2020, 10/25/2016 Colorectal Cancer Screening 06/09/2023 Mammogram 10/12/2023 10/11/2022, 05/0 04/2021, 01/18/2020, Additional history exists GFR 10/27/2023 04/26/2023, 03/0 02/2023, 04/12/2023, Additional history exists Depression Screening 11/07/2023 11/06/2022 CKD HGB USE SMARTSET 00678 04/25/202404/25, 04/26/2023, 04/19/2023, Additional history exists DXA [...] Procedure Name Priority Date/Time Associated Diagnosis Comments CULTURE, URINE, QUANTITATIVE Routine 04/25/2023 4:05 PM EST 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) Pre-op testing documented in this encounter Results * CULTURE, URINE, QUANTITATIVE (04/25/2023 4:05 PM EST) Culture Growth No significant growth 04/26/2023 12:49 PM EST [facility] Urine Urine specimen obtained by clean catch procedure / Unknown Non-blood Collection / Unknown 04/25/2023 4:05 PM EST 04/25/2023 5:15 PM EST Kin Joseph PA-C LAB MICRO - GENERAL ORDERABLES Performing Organization Address City/[facility] Co de Phone Number [facility] [address] [place] [address] * TYPE AND SCREEN (04/25/2023 2:31 PM EST) ABO B 04/25/2023 3:40 PM EST LAB[facility] Rh Positive 04/25/2023 3:40 PM EST LAB[facility] Red Blood Cell Antibody Screen Negative 04/25/2023 3:40 PM EST LAB[facility] Specimen Expiration Date 05/11/2023 23:59 04/25/2023 3:40 PM EST LAB[facility] Blood Venous blood specimen / Unknown Venipuncture / Unknown 04/25/2023 2:31 PM EST 04/25/2023 2:39 PM EST Kin Joseph PA-C LAB BLOOD BANK TEST ORDERABLES Performing Organization Address City/[facility] Co de Phone Number [facility] [address] [place] [address] documented in this encounter Visit Diagnoses Diagnosis 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 Care Teams Supervisor Cured Meats Relationship Specialty Start Date End Date Nichole Lizarraga MD [address] [facility] [place] [address] PCP - General Internal Medicine 03/10/12 documented as of this encounter
--- OUTSIDE RECORDS SUMMARY | 2023-06-30 22:52 | External Medical Summary ---
Author Name Unknown Address Unknown Organization [id number]:LABORATORY [facility] [place] - [address] [facility] [address] Laboratory Report Ordering Provider Test Date Status KEITH DAVIDSON 05/08/2023 16:25:09 Final SCREENING Observation Date Value Abnormality Reference (Units ) Status SARS Coronavirus 2 05/08/2023 16:25:09 Negative N egative Final 2019 Novel Coronavirus not d etected.

This express test was developed and its performance characteristics determined by [employer]. It has not been cleared or approved [...] (RT-PCR) test, or a Centers for Disease Control-acceptable equivalent. The test is performed in a high complexity Clinical Laboratory Improvement Amendments-(CLIA) certified laboratory. The test is acceptable for SARS-CoV-2 diagnosis, surveillance, and travel within the [place] and to most countries. Please check with local testing authorities about requirements before travel.

The validation of bronchial specimens, tracheal aspirates, and sputum for this assay was developed and performance characteristics determined by [employer]. The validation of alternate specimen types has not been cleared or approved by the U.S. Food and Drug Administration (FDA). It has been determined that such clearance is not necessary. Performing Location LABORATORY [facility] [place] - [address] [facility] [address]
--- OUTSIDE RECORDS SUMMARY | 2023-06-30 22:52 | External Medical Summary ---
Author Name Unknown Address Unknown Organization : Laboratory Report Ordering Provider Test Date Status SUE COLINDRES 05/08/2023 20:54:00 Final Observation Date Value Abnormality Reference (Units ) Status Performing Location
--- OUTSIDE RECORDS SUMMARY | 2023-06-30 22:52 | External Medical Summary ---
Author Name Unknown Address Unknown Organization [id number]:LABORATORY [facility] [place] - [address] [place] [address] Laboratory Report Ordering Provider Test Date Status SUE COLINDRES 05/08/2023 20:54:00 Final Observation Date Value Abnormality Reference (Units ) Status WBC, Total 05/08/2023 20:54:00 2.66 Below low normal 4.00-10.80 (K/uL) Final RBC 05/08/2023 20:54:00 2.97 3.85-5.15 (M/uL) Final Hemoglobin 05/08/2023 20:54:00 8.9 Below low normal 12.0-15.3 (g/dL) Final HCT 05/08/2023 20:54:00 27.4 Below low normal 36.0-45.2 (%) Final MCV 05/08/2023 20:54:00 92.3 81.5-97.5 (fL) Final MCH 05/08/2023 20:54:00 30.0 27.0-34.0 (pg) Final MCHC 05/08/2023 20:54:00 32.5 32.0-36.0 (g/dL) Final RDW 05/08/2023 20:54:00 15.4 11.5-15.5 (%) Final Platelets 05/08/2023 20:54:00 108 Below low normal 140-400 (K/uL) Final MPV 05/08/2023 20:54:00 12.2 6.6-11.1 (fL) Final Nucleated erythrocytes/100 leukocytes [Ratio] in Blood by Automated count 05/08/2023 20:54:00 0 <=0 (/100 WBCs) Final Performing Location LABORATORY [facility] [place] - [address] [place] [address]
--- OUTSIDE RECORDS SUMMARY | 2023-06-30 22:52 | External Medical Summary ---
Author Name Unknown Address Unknown Organization K09:LABORATORY [place] [address] Laboratory Report Ordering Provider Test Date Status KEN RAY 05/03/2023 10:38:16 Final Observation Date Value Abnormality Reference (Units ) Status SYNC LEUKOCYTES IN BLOOD BY AUTOMATED COUNT 05/03/2023 10:38:16 5.62 4.00-10.80 (K/uL) Final Segs 05/03/2023 10:38:16 28.6 Below low normal 40.0-75.0 (%) Final Lymphs % 05/03/2023 10:38:16 50.9 Above high normal 18.0-42.0 (%) Final Monos 05/03/2023 10:38:16 15.7 Above high normal 1.0-11.0 (%) Final Eosinophils 05/03/2023 10:38:16 3.2 0.0-6.0 (%) Final Basos 05/03/2023 10:38:16 1.6 0.0-2.0 (%) Final Absolute Segs 05/03/2023 10:38:16 1.61 Below low normal 1.80-7.70 (K/uL) Final Lymphs, absolute 05/03/2023 10:38:16 2.86 1.00-4.80 (K/ul) Final Monos, Abs 05/03/2023 10:38:16 0.88 0.00-1.10 (K/uL) Final Eos, Abs 05/03/2023 10:38:16 0.18 0.00-0.70 (K/uL) Final Basos, Abs 05/03/2023 10:38:16 0.09 0.00-0.20 (K/uL) Final Performing Location [facility]ORY [place] [address]
--- OUTSIDE RECORDS SUMMARY | 2023-06-30 22:52 | External Medical Summary ---
Author Name Unknown Address Unknown Organization : Laboratory Report Ordering Provider Test Date Status RAMILA ROSE 05/08/2023 15:04:30 Final Observation Date Value Abnormality Reference (Units ) Status Glucose Point of Care 05/08/2023 15:04:30 125 Above high normal 70-120 (mg/dL) Final Performing Location
--- OUTSIDE RECORDS SUMMARY | 2023-06-30 22:52 | External Medical Summary ---
Author Name Unknown Address Unknown Organization K01:LABORATORY [facility] [place] [address] [place] [address] Laboratory Report Ordering Provider Test Date Status SUE COLINDRES 05/09/2023 07:17:00 Final Until Discontinued Observation Date Value Abnormality Reference (Units ) Status BUN 05/09/2023 07:17:00 15 6-20 (mg/dL) Final Creatinine 05/09/2023 07:17:00 1.2 Above high normal 0.5-1.0 (mg/dL) Final Glomerular filtration rate/1.73 sq M.predicted [Volume Rate/Area] in Serum, Plasma or Blood by Creatinine-based formula (CKD-EPI) 05/09/2023 07:17:00 48 Below low normal >=60 (mL/min) Final eGFR is calculated based on the CKD-EPI 2020 equation Sodium 05/09/2023 07:17:00 139 135-146 (m mol/L) Final Potassium 05/09/2023 07:17:00 4.3 3.5-5.1 (m mol/L) Final Cl 05/09/2023 07:17:00 109 Above high normal 98 -107 (mmol/L) Final CO2 05/09/2023 07:17:00 21 Below low normal 22- 32 (mmol/L) Final Anion gap 05/09/2023 07:17:00 9 7-15 (mmol /L) Final Glucose 05/09/2023 07:17:00 98 70-120 (mg /dL) Final Calcium 05/09/2023 07:17:00 7.9 Below low normal 8.4 -10.2 (mg/dL) Final Performing Location LABORATORY [facility] [place] - [address] [place] [address]
--- OUTSIDE RECORDS SUMMARY | 2023-06-30 22:52 | External Medical Summary ---
Author Name Unknown Address Unknown Organization : Laboratory Report Ordering Provider Test Date Status SUE COLINDRES 05/09/2023 07:17:00 Final Until discontinued Observation Date Value Abnormality Reference (Units ) Status Performing Location
--- OUTSIDE RECORDS SUMMARY | 2023-06-30 22:52 | External Medical Summary ---
Author Name Unknown Address Unknown Organization K09:LABORATORY [place] [address] Laboratory Report Ordering Provider Test Date Status KEN RAY 04/26/2023 10:31:10 Final Observation Date Value Abnormality Reference (Units ) Status SYNC LEUKOCYTES IN BLOOD BY AUTOMATED COUNT 04/26/2023 10:31:10 5.52 4.00-10.80 (K/uL) Final Segs 04/26/2023 10:31:10 28.3 Below low normal 40.0-75.0 (%) Final Lymphs % 04/26/2023 10:31:10 51.6 Above high normal 18.0-42.0 (%) Final Monos 04/26/2023 10:31:10 15.6 Above high normal 1.0-11.0 (%) Final Eosinophils 04/26/2023 10:31:10 2.7 0.0-6.0 (%) Final Basos 04/26/2023 10:31:10 1.8 0.0-2.0 (%) Final Absolute Segs 04/26/2023 10:31:10 1.56 Below low normal 1.80-7.70 (K/uL) Final Lymphs, absolute 04/26/2023 10:31:10 2.85 1.00-4.80 (K/ul) Final Monos, Abs 04/26/2023 10:31:10 0.86 0.00-1.10 (K/uL) Final Eos, Abs 04/26/2023 10:31:10 0.15 0.00-0.70 (K/uL) Final Basos, Abs 04/26/2023 10:31:10 0.10 0.00-0.20 (K/uL) Final Performing Location LABORATORY [place] [address]
--- OUTSIDE RECORDS SUMMARY | 2023-06-30 22:52 | External Medical Summary ---
Author Name Unknown Address Unknown Organization K01:LABORATORY [facility] [place] - [address] [place] [address] Laboratory Report Ordering Provider Test Date Status BALWINDER GAN 05/09/2023 07:17:00 Final Observation Date Value Abnormality Reference (Units ) Status CLINICIAN SLIDE READY? 05/09/2023 07:17:00 Yes Final CLINICIAN SLIDE REQUEST PICKUP LOCATION 05/09/2023 07:17:00 [facility] Main Laboratory - [place] Final Performing Location LABORATORY [facility] - [address] [place] [address]
--- OUTSIDE RECORDS SUMMARY | 2023-06-30 22:52 | External Medical Summary | Summary of Care ---
Author Name Unknown Organization [facility] Address [address] [place] [address] Phone [phone] Care Team Providers Care Legal Support Analyst Name Role Phone Nichole Lizarraga MD Primary Care Provider + Reason for Visit * Reason Comments Outpatient Testing Encounter Details Date Type Department Care Team (Late st Contact Info) Description 04/26/2023 10:30 AM EST Laboratory [facility] [address] [place] [phone] [place], Lab Scenery [address] [place] [address] Chronic neutropenia (HCC); Large granular lymphocytic leukemia (HCC); 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) Allergies Active Allergy Reactions Criticality Noted [...] mRNA, LNP-s, No Pre serve, 2-Dose Series ([employer]) 01/05/2021,05/07/2020,04/16/2020 COVID-19, LNP-s, No Preserve , Jasbir-sucrose, [...] on file documented as of this encounter Plan of Treatment Upcoming Encounters Date Type Department Care Team (Latest Contact Info) Description 04/30/2023 8:15 AM EDT Telemedicine Urology, [place] [address] [place] [address] Saul Vargas MD [address] [place] [address] 05/01/2023 11:20 AM EDT Office Visit General Internal Medicine, [facility] [address] [place] [address] Laci Dye MD [address] [place] [address] 05/08/2023 10:00 AM EDT Hospital Encounter [place] [facility], OPERATING ROOM [facility] [address] [place] [address] Saul Vargas MD [address] [place] [address] 05/08/2023 10:00 AM EDT - 05/08/2023 5:46 PM EDT Surgery OR [facility] [address] [place] [address] Saul Vargas MD [address] [place] [address] CYSTECTOMY COMPLETE WITH URETEROILEAL CONDUIT WITH BILATERAL PELVIC LYMPHADENECTOMY 06/10/2023 10:30 AM EDT Office Visit Urology, [facility] [address] [email or web address] [place] [address] Chris Royal MD [address] [place] [address] [place] [address] 06/11/2023 1:45 PM EDT Office Visit Urology, [place] [address] [place] [address] Saul Vargas MD [address] [place] [address] 06/24/2023 10:40 AM EDT Office Visit Nephrology, [facility] [address] [facility] [address] [place] [address] Demetrius Sherman MD [address] [facility] [place] [address] 07/25/2023 11:15 AM EDT Office Visit Hematology/Oncolog y [facility] [address] [facility] [place] [phone] Aguilar Lizarraga MD [address] [facility] [place] [address] 11/12/2023 9:20 AM EDT Office Visit General Internal Medicine [facility] [place] [address] [facility] [place] [address] Nichole Lizarraga MD [address] [facility] [place] [address] Pending Results Name Type Priority Associated Diagnoses Date /Time COMPREHENSIVE METABOLIC PANEL Lab STAT 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) 04/26/2023 10:31 AM EST MAGNESIUM Lab STAT 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) 04/26/2023 10:31 AM EST Scheduled Procedures Name Priority Associated Diagnoses Date/Ti [...] 03/13/2023 03/13/2022, 10/20 CKD PHOS USE SMARTSET 88212 03/13/2023 03/13/2022, 0 11/09/2021 Cologuard 06/09/2023 06/08/2020, 10/25/2016 Colorectal Cancer Screening 06/09/2023 Mammogram 10/12/2023 10/11/2022, 05/0 04/2021, 01/18/2020, Additional history exists GFR 10/20/2023 04/19/2023, 03/22, 04/05/2023, Additional history exists Depression Screening 11/07/2023 11/06/2022 CKD HGB USE SMARTSET 17483 04/18/202404/25, 04/26/2023, 04/19/2023, Additional history exists DXA Scan [...] Date/Time Associated Diagnosis Comments DIFFERENTIAL, AUTOMATED STAT 04/26/2023 10:31 AM EST 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) CBC STAT 04/26/2023 10:31 AM EST 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) CBC STAT 04/26/2023 10:31 AM EST 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) documented in this encounter Results * (ABNORMAL) DIFFERENTIAL, AUTOMATED (04/26/2023 10:31 AM EST) WBC 5.52 4.00 - 10.80 K/uL 04/26/2023 10:38 AM EST [facility] 56-02 Neutrophils % 28.3(L) 40.0 - 75.0 % 04/26/2023 10:38 AM EST [facility] 56-02 Lymphocytes % 51.6(H) 18.0 - 42.0 % 04/26/2023 10:38 AM EST [facility] 56-02 Monocytes % 15.6(H) 1.0 - 11.0 % 04/26/2023 10:38 AM EST [facility] 56-02 Eosinophils % 2.7 0.0 - 6.0 % 04/26/2023 10:38 AM EST [facility] 56-02 Basophils % 1.8 0.0 - 2.0 % 04/26/2023 10:38 AM EST [facility] 56-02 Absolute Neutrophils 1.56(L) 1.80 - 7.70 K/uL 04/26/2023 10:38 AM EST [facility] 56-02 Absolute Lymphocytes 2.85 1.00 - 4.80 K/ul 04/26/2023 10:38 AM EST [facility] 56-02 Absolute Monocytes 0.86 0.00 - 1.10 K/uL 04/26/2023 10:38 AM [facility] 56- Absolute Eosinophils 0.15 0.00 - 0.70 K/uL 04/26/2023 10:38 AM [facility] 56- Absolute Basophils 0.10 0.00 - 0.20 K/uL 04/26/2023 10:38 AM [facility] 56- Blood Venous blood specimen / Unknown Venipuncture / Unknown 04/26/2023 10:31 AM EST 04/26/2023 10:31 AM EST Aguilar Lizarraga MD LAB BLOOD ORDERABLES [facility] [address]- [address] [place] [address] * CBC (04/26/2023 10:31 AM EST) WBC 5.52 4.00 - 10.80 K/uL 04/26/2023 10:38 AM [facility] 56- RBC 4.54 3.85 - 5.15 M/uL 04/26/2023 10:38 AM [facility] 56- HGB 13.4 12.0 - 15.3 g/dL 04/26/2023 10:38 AM [facility] 56- HCT 41.4 36.0 - 45.2 % 04/26/2023 10:38 AM [facility] 56- MCV 91.2 81.5 - 97.5 fL 04/26/2023 10:38 AM [facility] 56- MCH 29.5 27.0 - 34.0 pg 04/26/2023 10:38 AM [facility] 56- MCHC 32.4 32.0 - 36.0 g/dL 04/26/2023 10:38 AM [facility] 56- RDW 15.8 11.5 - 15.5 % 04/26/2023 10:38 AM [facility] 56- PLT 156 140 - 400 K/uL 04/26/2023 10:38 AM [facility] 56- MPV 11.8 6.6 - 11.1 fL 04/26/2023 10:38 AM EST [facility] 56- Blood Venous blood specimen / Unknown Venipuncture / Unknown 04/26/2023 10:31 AM EST 04/26/2023 10:31 AM EST Aguilar Lizarraga MD LAB BLOOD ORDERABLES [facility] [address] [facility] [address] documented in this encounter Visit Diagnoses Diagnosis 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 Care Teams Legal Support Analyst Relationship Specialty Start Date End Date Nichole Lizarraga MD [address] [facility] [place] [address] PCP - General Internal Medicine 03/10/12 documented as of this encounter
--- OUTSIDE RECORDS SUMMARY | 2023-06-30 22:52 | External Medical Summary ---
Author Name Unknown Address Unknown Organization K01:LABORATORY [facility] - [address] [place] [address] Laboratory Report Ordering Provider Test Date Status SUE COLINDRES 05/08/2023 20:54:00 Final Observation Date Value Abnormality Reference (Units ) Status SYNC LEUKOCYTES IN BLOOD BY AUTOMATED COUNT 05/08/2023 20:54:00 2.66 Below low normal 4.00-10.80 (K/uL) Final Neutrophils/100 leukocytes in Blood by Manual count 05/08/2023 20:54:00 57.0 40.0-75.0 (%) Final Lymphocytes/100 leukocytes in Blood by Manual count 05/08/2023 20:54:00 27.0 18.0-42.0 (%) Final Monocytes/100 leukocytes in Blood by Manual count 05/08/2023 20:54:00 16.0 Above high normal 1.0-11.0 (%) Final Neutrophils [#/volume] in Blood by Manual count 05/08/2023 20:54:00 1.52 Below low normal 1.80-7.70 (K/uL) Final Lymphocytes [#/volume] in Blood by Manual count 05/08/2023 20:54:00 0.72 Below low normal 1.00-4.80 (K/uL) Final Monocytes [#/volume] in Blood by Manual count 05/08/2023 20:54:00 0.43 0.00-1.10 (K/uL) Final Performing Location LABORATORY [facility] - [address] [place] [address]
--- OUTSIDE RECORDS SUMMARY | 2023-06-30 22:52 | External Medical Summary | Summary of Care ---
Author Name Unknown Organization [facility] Address [address] [facility] [place] [address] Phone [phone] Care Team Providers Care Senior Chemical Engineer Name Role Phone Nichole Lizarraga MD Primary Care Provider + Reason for Visit * Reason Comments Outpatient Testing Encounter Details Date Type Department Care Team (Late st Contact Info) Description 05/03/2023 10:30 AM EDT Laboratory [facility] [place] [address] [place] [phone] [place], [facility] [address] [place] [address] Chronic neutropenia (HCC); Large granular lymphocytic leukemia (HCC); 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) Allergies Active Allergy Reactions Criticality Noted Date Comments Penicillins Edema airway,Rash High 03/10/2012 Last dose age 14 Pollen 01/17/2021 Ragweed 11/05/2022 documented as of this encounter (statuses as of 05/03/2023) Medications Medication Sig Dispensed Refills Start Date [...] 10/16/2016 Active fluticasone (FLONASE) 50 MCG/ACT nasal sprayIndications:[address] Justice belen maxillary sinusitis Administer 2 Sprays into [...] as of this encounter (statuses as of 05/03/2023) Active Problems Problem Noted Date Diagnosed Date [...] as of this encounter (statuses as of 05/03/2023) Resolved Problems Problem Noted Date Diagnosed Date Resolved Date Chronic kidney disease, stage 3b 04/30/2022 05/01/2023 Overview: Per CKD protocol Chronic kidney disease, stage 3a 05/29/2021 05/02/2022 Overview: Per CKD protocol Fever 09/13/2015 10/21/2017 Kidney stone on left side Inguinal hernia 10/21/2017 Overview: Surgical repair Neutropenia 10/21/2017 documented as of this encounter (statuses as of 05/03/2023) Immunizations Name Administration Dates Next Due COVID-19 mRNA, LNP-s, No Pre serve, 2-Dose Series ([employer]) 01/05/2021,05/07/2020,04/16/2020 COVID-19, LNP-s, No Preserve , Jasbir-sucrose, [...] 05/08/2023 10:00 AM EDT Hospital Encounter OR [facility], OPERATING ROOM [facility], [facility] [address] [place] [address] Saul Vargas MD [address] [place] [address] 05/08/2023 10:00 AM EDT - 05/08/2023 5:46 PM EDT Surgery OR [facility], OPERATING ROOM [facility], [facility] [address] [place] [address] Saul Vargas MD [address] [place] [address] CYSTECTOMY COMPLETE WITH URETEROILEAL CONDUIT WITH BILATERAL PELVIC LYMPHADENECTOMY 06/10/2023 10:30 AM EDT Office Visit Urology, [facility] [address] [facility] [place] [address] Chris Royal MD [address] [address] [place] [address] 06/11/2023 1:45 PM EDT Office Visit Urology, [place] [address] [place] [address] Saul Vargas MD [address] [place] [address] 06/24/2023 10:40 AM EDT Office Visit Nephrology, [facility] [address] [facility] [place] [address] Demetrius Sherman MD [address] [facility] [place] [address] 07/25/2023 11:15 AM EDT Office Visit Hematology/Oncolog y [facility] [address] [facility] [place] [address] Aguilar Lizarraga MD [address] [facility] [place] [address] 11/12/2023 9:20 AM EDT Office Visit General Internal Medicine [facility] [place] [address] [facility] [address] [place], [place] [address] Nichole Lizarraga MD [address] [facility] [place] [place] [address] Pending Results Name Type Priority Associated Diagnoses Date /Time COMPREHENSIVE METABOLIC PANEL Lab STAT 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) 05/03/2023 10:38 AM EDT MAGNESIUM Lab STAT 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) 05/03/2023 10:38 AM EDT Scheduled Procedures Name Priority Associated Diagnoses Date/Ti [...] 03/13/2023 03/13/2022, 10/20 CKD PHOS USE SMARTSET 07353 03/13/2023 03/13/2022, 0 11/09/2021 Cologuard 06/09/2023 06/08/2020, 10/25/2016 Colorectal Cancer Screening 06/09/2023 Mammogram 10/12/2023 10/11/2022, 05/0 04/2021, 01/18/2020, Additional history exists GFR 10/27/2023 04/26/2023, 03/0 02/2023, 04/12/2023, Additional history exists Depression Screening 11/07/2023 11/06/2022 CKD HGB USE SMARTSET 28615 04/25/202405/02, 05/03/2023, 04/26/2023, Additional history exists DXA Scan 10/02/2024 10/02/2022, [...] Date/Time Associated Diagnosis Comments DIFFERENTIAL, AUTOMATED STAT 05/03/2023 10:38 AM EDT 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) CBC STAT 05/03/2023 10:38 AM EDT 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) CBC STAT 05/03/2023 10:38 AM EDT 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) documented in this encounter Results * (ABNORMAL) DIFFERENTIAL, AUTOMATED (05/03/2023 10:38 AM EDT) [facility] WBC 5.62 4.00 - 10.80 K/uL 05/03/2023 10:43 AM EDT LAB[facility] [place] 56-02 Neutrophils % 28.6(L) 40.0 - 75.0 % 05/03/2023 10:43 AM EDT [facility] [place] 56-02 Lymphocytes % 50.9(H) 18.0 - 42.0 % 05/03/2023 10:43 AM EDT [facility] [place] 56-02 Monocytes % 15.7(H) 1.0 - 11.0 % 05/03/2023 10:43 AM EDT [facility] [place] 56-02 Eosinophils % 3.2 0.0 - 6.0 % 05/03/2023 10:43 AM EDT [facility] [place] 56-02 Basophils % 1.6 0.0 - 2.0 % 05/03/2023 10:43 AM EDT [facility] [place] 56-02 Absolute Neutrophils 1.61(L) 1.80 - 7.70 K/uL 05/03/2023 10:43 AM EDT [facility] [place] 56-02 Absolute Lymphocytes 2.86 1.00 - 4.80 K/ul 05/03/2023 10:43 AM EDT [facility] [place] 56-02 Absolute Monocytes 0.88 0.00 - 1.10 K/uL 05/03/2023 10:43 AM EDT [facility] [place] 56-02 Absolute Eosinophils 0.18 0.00 - 0.70 K/uL 05/03/2023 10:43 AM EDT [facility] [place] 56-02 Absolute Basophils 0.09 0.00 - 0.20 K/uL 05/03/2023 10:43 AM EDT [facility] 56 Blood Venous blood specimen / Unknown Venipuncture / Unknown 05/03/2023 10:38 AM EDT 05/03/2023 10:38 AM EDT Aguilar Lizarraga MD LAB BLOOD ORDERABLES [place] [address] [address] [place] [address] * CBC (05/03/2023 10:38 AM EDT) WBC 5.62 4.00 - 10.80 K/uL 05/03/2023 10:43 AM EDT [address] RBC 4.37 3.85 - 5.15 M/uL 05/03/2023 10:43 AM EDT [address] HGB 12.8 12.0 - 15.3 g/dL 05/03/2023 10:43 AM EDT [address] HCT 39.7 36.0 - 45.2 % 05/03/2023 10:43 AM EDT [address] MCV 90.8 81.5 - 97.5 fL 05/03/2023 10:43 AM EDT [address] MCH 29.3 27.0 - 34.0 pg 05/03/2023 10:43 AM EDT [address] MCHC 32.2 32.0 - 36.0 g/dL 05/03/2023 10:43 AM EDT [address] RDW 15.9 11.5 - 15.5 % 05/03/2023 10:43 AM EDT [facility] 56 PLT 156 140 - 400 K/uL 05/03/2023 10:43 AM EDT [facility] 56 MPV 11.9 6.6 - 11.1 fL 05/03/2023 10:43 AM EDT [facility] 56 Blood Venous blood specimen / Unknown Venipuncture / Unknown 05/03/2023 10:38 AM EDT 05/03/2023 10:38 AM EDT Aguilar Lizarraga MD LAB BLOOD ORDERABLES [facility] 56-02 [address] [facility] [place] [address] documented in this encounter Visit Diagnoses Diagnosis [...] were consensually agreed upon. Care Teams Senior Chemical Engineer Relationship Specialty Start Date End Date [facility] [address] P[facility] - General Internal Medicine 03/10/12 documented as of this encounter
--- OUTSIDE RECORDS SUMMARY | 2023-06-30 22:52 | External Medical Summary ---
Author Name Unknown Address Unknown Organization [id number]:LABORATORY [facility] - [address] [place] [address] Laboratory Report Ordering Provider Test Date Status SUE COLINDRES 05/09/2023 07:17:00 Final Until discontinued Observation Date Value Abnormality Reference (Units ) Status WBC, Total 05/09/2023 07:17:00 2.64 Below low normal 4.00-10.80 (K/uL) Final RBC 05/09/2023 07:17:00 2.94 3.85-5.15 (M/uL) Final Hemoglobin 05/09/2023 07:17:00 8.7 Below low normal 12.0-15.3 (g/dL) Final HCT 05/09/2023 07:17:00 27.5 Below low normal 36.0-45.2 (%) Final MCV 05/09/2023 07:17:00 93.5 81.5-97.5 (fL) Final MCH 05/09/2023 07:17:00 29.6 27.0-34.0 (pg) Final MCHC 05/09/2023 07:17:00 31.6 32.0-36.0 (g/dL) Final RDW 05/09/2023 07:17:00 15.5 11.5-15.5 (%) Final Platelets 05/09/2023 07:17:00 105 Below low normal 140-400 (K/uL) Final MPV 05/09/2023 07:17:00 12.1 6.6-11.1 (fL) Final Nucleated erythrocytes/100 leukocytes [Ratio] in Blood by Automated count 05/09/2023 07:17:00 0 <=0 (/100 WBCs) Final Performing Location LABORATORY [facility] - [address] [place] [address]
--- OUTSIDE RECORDS SUMMARY | 2023-06-30 22:52 | External Medical Summary ---
Author Name Unknown Address Unknown Organization [id number]:[place] [address] Laboratory Report Ordering Provider Test Date Status KEN RAY 05/03/2023 10:38:16 Final Observation Date Value Abnormality Reference (Units ) Status WBC, Total 05/03/2023 10:38:16 5.62 4.00-10.8 0 (K/uL) Final RBC 05/03/2023 10:38:16 4.37 3.85-5.15 (M/uL) Final Hemoglobin 05/03/2023 10:38:16 12.8 12.0-15.3 (g/dL) Final HCT 05/03/2023 10:38:16 39.7 36.0-45.2 (%) Final MCV 05/03/2023 10:38:16 90.8 81.5-97.5 (fL) Final MCH 05/03/2023 10:38:16 29.3 27.0-34.0 (pg) Final MCHC 05/03/2023 10:38:16 32.2 32.0-36.0 (g/dL) Final RDW 05/03/2023 10:38:16 15.9 11.5-15.5 (%) Final Platelets 05/03/2023 10:38:16 156 140-400 (K /uL) Final MPV 05/03/2023 10:38:16 11.9 6.6-11.1 ( fL) Final Performing Location [place] [address]
--- NOTE | 2023-06-30 22:53 | Emergency Department Note ---
History of Present Illness General Chief complaint: Altered Mental Status Stated complaint: SICK PERSON, ALTERED MENTAL STATUS Time Seen by Provider: 06/30/23 22:37 History of Present Illness This 73-year-old with bladder cancer presents the ER complaining of fever, chills and increased confusion for the past several days. Patient's not sure if she is currently on chemotherapy. History is obtained from EMS and the patient. Patient states has been feeling sick for the past week but much worse with the past few days. Patient denies chest pain, dyspnea, abdominal pain, vomiting, diarrhea. She was recently on Augmentin for UTI. Home Medications Medication Instructions Recorded Confirmed Type loratadine 10 mg tablet (Claritin) 10 mg PO DAILY PRN allergies 11/15/17 07/01/23 History azelastine 137 mcg (0.1 %) nasal 1 spray intranasal BID PRN Nasal 03/15/21 07/01/23 History spray aerosol Congestion acetaminophen 325 mg tablet 650 mg PO Q4 PRN Pain 07/01/23 07/01/23 History (Tylenol) filgrastim-sndz 480 mcg/0.8 mL 480 mcg subcut 4XWK 07/01/23 07/01/23 History injection syringe (Zarxio) food supplemt, lactose-reduced 1 ea PO DAILY 07/01/23 07/01/23 History midodrine 5 mg tablet 5 mg PO TID 07/01/23 07/01/23 History multivitamin 1 tab PO Q OTHER DAY 07/01/23 07/01/23 History Allergies Allergy/AdvReac Type Severity Reaction Status Date / Time Penicillins Allergy Intermediate Airway Verified 07/01/23 00:29 edema, rash pollen extracts Allergy Unknown Unknown Verified 07/01/23 00:29 Past Med/Surg History Medical History Ureter ca left Carcinoma of bladder Neutropenia Surgical History H/O hysterectomy with unilateral oophorectomy History of urostomy History of left nephrectomy Social History Smoking Status: Never smoker Hx Substance Use: No Preferred Language: Portuguese Feels Safe at Home: Yes Review of Systems A total of 10 systems reviewed and were otherwise negative Physical Exam Vital Signs Vital Signs - 24 hr 06/30/23 22:46 06/30/23 22:46 06/30/23 22:46 Temperature 37.4 C 37.4 C Temperature Source Rectal Rectal Pulse Rate 113 H Pulse Rate [Apical] Pulse Rhythm Regular Pulse Strength Normal Respiratory Rate 15 15 Respiratory Effort / Characteristics Non-Labored Spontaneous Non-Labored Spontaneous Respiratory Depth Normal Normal Respiratory Pattern Regular Blood Pressure [Left Arm] Blood Pressure Mean [Left Arm] Pulse Oximetry 94 98 Oxygen Delivery Method Room Air Room Air Room Air Sepsis Recent Fever Within 48 Hours Yes Sepsis New/Unexplained Change in Mental Status Yes Sepsis Action Taken by Nursing Adv Provider Notified 06/30/23 23:07 06/30/23 23:07 06/30/23 23:39 Temperature Temperature Source Pulse Rate 105 H 105 H Pulse Rate [Apical] 105 H Pulse Rhythm Pulse Strength Respiratory Rate 18 18 Respiratory Effort / Characteristics Respiratory Depth Respiratory Pattern Blood Pressure [Left Arm] 121/64 Blood Pressure Mean [Left Arm] 83 Pulse Oximetry 94 95 Oxygen Delivery Method Room Air Room Air Sepsis Recent Fever Within 48 Hours Sepsis New/Unexplained Change in Mental Status Sepsis Action Taken by Nursing 06/30/23 23:51 07/01/23 00:46 Temperature Temperature Source Pulse Rate Pulse Rate [Apical] 103 H 99 H Pulse Rhythm Pulse Strength Respiratory Rate 18 18 Respiratory Effort / Characteristics Non-Labored Non-Labored Respiratory Depth Normal Normal Respiratory Pattern Regular Regular Blood Pressure [Left Arm] 118/64 130/79 Blood Pressure Mean [Left Arm] 82 96 Pulse Oximetry 98 97 Oxygen Delivery Method Room Air Sepsis Recent Fever Within 48 Hours Sepsis New/Unexplained Change in Mental Status Sepsis Action Taken by Nursing VITALS: Vitals are noted on the nurse's note and reviewed by myself. Vital signs stable. GENERAL: Elderly female, in no acute distress, nondiaphoretic, well-developed well-nourished. SKIN: The skin was without rashes, erythema, edema, or bruising. There is no tenting of the skin. Capillary reflex less than 2 seconds. HEAD: Normocephalic atraumatic. EARS: External auditory canals clear EYES: Pupils equal round and reactive to light and accommodation. Conjunctivae without injection, sclerae without icterus. Extraocular movements intact. NOSE: Patent, no discharge. MOUTH: Mucous membranes dry. Herpetic stomatitis present pharynx without erythema or exudate. Uvula midline. Airway patent. Tongue does not deviate. NECK: Supple without nuchal rigidity. No lymphadenopathy. No thyromegaly. Cervical spine is nontender. No JVD. HEART: Regular rate and rhythm LUNGS: Clear to auscultation bilaterally without wheezes, rales or rhonchi. No retractions or accessory muscle use. ABDOMEN: Positive bowel sounds x 4. Normal tympanic percussion. Soft, nontender, without masses or organomegaly. Almendarez sign negative. No guarding or rebound tenderness. No CVA tenderness MUSCULOSKELETAL: No muscle atrophy, erythema, or edema noted. NEURO: Patient was alert and oriented to person place and time. Normal sensation to light and sharp touch. No focal neurological deficits. Course Administered Medications Vancomycin HCl 1,000 mg/ (Sodium Chloride) 520 mls @ 200 mls/hr IV NOW ONE Stop: 07/01/23 02:24 Last Admin: 07/01/23 00:22 Dose: 200 mls/hr Documented By: MAXINE Discontinued Medications Sodium Chloride (Nss) 1,000 mls @ 999 mls/hr IV .Q1H1M ASIF Stop: 07/01/23 00:00 Last Infusion: 07/01/23 00:24 Dose: Infused Documented By: Admin: 06/30/23 23:06 Dose: 999 mls/hr Documented By: ALLYSSA Cefepime HCl (Maxipime) 2,000 mg in 20 mls @ 5 mls/min IV NOW STA; Protocol Stop: 06/30/23 22:50 Last Admin: 06/30/23 23:06 Dose: 5 mls/min Documented By: ALLYSSA Lactated Ringer's (Lr) 500 mls @ 999 mls/hr IV .Q31M ONE Stop: 07/01/23 00:06 Last Infusion: 07/01/23 00:57 Dose: Infused Documented By: Admin: 07/01/23 00:23 Dose: 999 mls/hr Documented By: MAXINE Medical Decision Making Medical Records Attestation: I reviewed the patient's medical records. Home Medications Current Medication List: was personally reviewed by me Laboratory Data Attestation: I reviewed the patient's lab results. 06/30/23 22:55 06/30/23 22:55 Lab Results 06/30/23 06/30/23 06/30/23 Range/Units 22:55 23:00 23:27 WBC 0.57 L* (4.8-10.8) K/ul RBC 2.63 L (4.20-5.40) M/uL Hgb 7.0 L (12.0-16.0) g/dl Hct 21.5 L (37.0-47.0) % MCV 81.7 (80.0-100.0) fL MCH 26.6 (25.0-34.0) pg MCHC 32.6 (32.0-36.0) g/dL RDW Std Deviation 56.5 H (36.4-46.3) fL RDW Coeff of Nisha 18.7 H (11.5-14.5) % Plt Count 207 (130-400) K/uL MPV 10.4 (9.4-12.4) fL Neutrophils % (Manual) 7 % Lymphocytes % (Manual) 73 % Monocytes % (Manual) 10 % Eosinophils % (Manual) 10 % Neutrophils # (Manual) 0.04 L (1.40-6.50) K/uL Total Absolute Neuts 0.04 L* (1.4-6.5) K/uL Lymphocytes # (Manual) 0.42 L (1.2-3.4) K/uL Total Abs Lymphocytes 0.42 L (1.2-3.4) K/uL Monocytes # (Manual) 0.06 L (0.11-0.59) K/uL Eosinophils # (Manual) 0.06 (0-0.50) K/uL RBC Morphology Unremarkable Sodium 145 (136-145) mmol/L Potassium 3.1 L (3.5-5.1) mmol/L Chloride 122 H (98-107) mmol/L Carbon Dioxide 16 L (21-32) mmol/L Anion Gap 7 (3-11) BUN 73 H (6-23) mg/dl Creatinine 2.57 H (0.6-1.2) mg/dl Est Cr Clr Drug Dosing 16.5 ml/min Est GFR ( Amer) 21.0 ml/min Est GFR (Non-Af Amer) 18.1 ml/min BUN/Creatinine Ratio 28.4 H (10-20) Glucose 97 (70-99(Fasting)) mg/dl Lactate 0.9 (0.4-2.0) mmol/L Calcium 7.9 L (8.6-10.3) mg/dl Magnesium 1.9 (1.7-2.4) mg/dl Total Bilirubin 0.7 (0.2-1.0) mg/dl Direct Bilirubin 0.3 H (0-0.2) mg/dl AST 5 L (13-39) U/L ALT 4 L (7-52) U/L Alkaline Phosphatase 40 (34-104) U/L Troponin I High Sens 58.4 H* (0-14) pg/ml Total Protein 4.9 L (6.0-8.3) gm/dl Albumin 1.7 L (3.4-5.0) gm/dl Procalcitonin 19.30 H (0-0.5) ng/ml Urine Color Yellow Urine Appearance Turbid A (Clear) Urine pH 6.0 (4.5-7.5) Ur Specific [place] 1.013 (1.000-1.030) Urine Protein 2+ H (Negative) Urine Glucose (UA) Negative (Negative) Urine Ketones Negative (Negative) Urine Blood Negative (Negative) Urine Nitrite Negative (Negative) Urine Bilirubin Negative (Negative) Urine Urobilinogen Negative (Negative) Ur Leukocyte Esterase Negative (Negative) Urine WBC (Auto) 6-10 H (0-5) /hpf Urine RBC (Auto) 0-2 (0-2) /hpf U Hyaline Cast (Auto) 6-10 H (0-2) /lpf U Epithel Cells (Auto) 0-2 (0-2) /hpf Urine Bacteria (Auto) 4+ H (None Seen) Group A Strep (PCR) NOT DETECTED (NotDetected) 07/01/23 Range/Units 00:34 WBC (4.8-10.8) K/ul RBC (4.20-5.40) M/uL Hgb (12.0-16.0) g/dl Hct (37.0-47.0) % MCV (80.0-100.0) fL MCH (25.0-34.0) pg MCHC (32.0-36.0) g/dL RDW Std Deviation (36.4-46.3) fL RDW Coeff of Nisha (11.5-14.5) % Plt Count (130-400) K/uL MPV (9.4-12.4) fL Neutrophils % (Manual) % Lymphocytes % (Manual) % Monocytes % (Manual) % Eosinophils % (Manual) % Neutrophils # (Manual) (1.40-6.50) K/uL Total Absolute Neuts (1.4-6.5) K/uL Lymphocytes # (Manual) (1.2-3.4) K/uL Total Abs Lymphocytes (1.2-3.4) K/uL Monocytes # (Manual) (0.11-0.59) K/uL Eosinophils # (Manual) (0-0.50) K/uL RBC Morphology Sodium (136-145) mmol/L Potassium (3.5-5.1) mmol/L Chloride (98-107) mmol/L Carbon Dioxide (21-32) mmol/L Anion Gap (3-11) BUN (6-23) mg/dl Creatinine (0.6-1.2) mg/dl Est Cr Clr Drug Dosing ml/min Est GFR ( Amer) ml/min Est GFR (Non-Af Amer) ml/min BUN/Creatinine Ratio (10-20) Glucose (70-99(Fasting)) mg/dl Lactate (0.4-2.0) mmol/L Calcium (8.6-10.3) mg/dl Magnesium (1.7-2.4) mg/dl Total Bilirubin (0.2-1.0) mg/dl Direct Bilirubin (0-0.2) mg/dl AST (13-39) U/L ALT (7-52) U/L Alkaline Phosphatase (34-104) U/L Troponin I High Sens 72.7 H* D (0-14) pg/ml Total Protein (6.0-8.3) gm/dl Albumin (3.4-5.0) gm/dl Procalcitonin (0-0.5) ng/ml Urine Color Urine Appearance (Clear) Urine pH (4.5-7.5) Ur Specific [place] (1.000-1.030) Urine Protein (Negative) Urine Glucose (UA) (Negative) Urine Ketones (Negative) Urine Blood (Negative) Urine Nitrite (Negative) Urine Bilirubin (Negative) Urine Urobilinogen (Negative) Ur Leukocyte Esterase (Negative) Urine WBC (Auto) (0-5) /hpf Urine RBC (Auto) (0-2) /hpf U Hyaline Cast (Auto) (0-2) /lpf U Epithel Cells (Auto) (0-2) /hpf Urine Bacteria (Auto) (None Seen) Group A Strep (PCR) (NotDetected) Imaging Data Attestation: I personally reviewed and interpreted this imaging study as follows: Radiologist's Impression: Head CT 06/30/23 22:47 Exam(s): CT HEAD Without Contrast EXAM: CT Head Without Intravenous Contrast CLINICAL HISTORY: Reason for exam: bladder CA, AMS, fever. TECHNIQUE: Axial computed tomography images of the head/brain without intravenous contrast. Automated exposure control was utilized for the study. A dose lowering technique was utilized adhering to the principles of ALARA. COMPARISON: No relevant prior studies available. FINDINGS: Brain: Unremarkable. No hemorrhage. No significant white matter disease. No edema. Ventricles: Unremarkable. No ventriculomegaly. Bones/joints: Unremarkable. No acute fracture. Soft tissues: Unremarkable. Sinuses: Findings concerning for acute maxillary sinusitis with air- fluid levels. Mastoid air cells: Unremarkable as visualized. No mastoid effusion. IMPRESSION: No evidence of acute intracranial pathology. Findings concerning acute maxillary sinusitis with air-fluid levels. Electronically signed by: Elisa Willis MD 07/01/23 00:00 AM Abdomen/Pelvis CT 06/30/23 23:47 Exam(s): CT ABDOMEN + PELVIS Without Contrast EXAM: CT Abdomen and Pelvis Without Intravenous Contrast CLINICAL HISTORY: Reason for exam: sepsis, ams. TECHNIQUE: Axial computed tomography images of the abdomen and pelvis without intravenous contrast. CTDI is 12.15 mGy and DLP is 550.3 mGy-cm. Automated exposure control was utilized for the study. A dose lowering technique was utilized adhering to the principles of ALARA. COMPARISON: Ultrasound from January 23, 2018 FINDINGS: Lung bases: See below. Pleural space: Small, 1 cm in left pleural effusion with mild bibasilar atelectasis. Mild to moderate cardiomegaly is present. ABDOMEN: Liver: Severe hepatomegaly measuring 26.6 cm craniocaudad. No focal liver lesion is seen. Gallbladder and bile ducts: Unremarkable. No calcified stones. No ductal dilation. Pancreas: Unremarkable. No ductal dilation. Spleen: Unremarkable. No splenomegaly. Adrenals: Unremarkable. No mass. Kidneys and ureters: The left kidney is absent. The right kidney appears within normal limits. No obstructing stones. No hydronephrosis. Stomach and bowel: The liver may compress the right lower quadrant ileostomy. There are scattered gas fluid levels within nondilated small bowel suggesting ileus. There is diverticulosis of the sigmoid colon without evidence of acute diverticulitis. PELVIS: Appendix: No findings to suggest acute appendicitis. Bladder: Unremarkable. No stones. Reproductive: Unremarkable as visualized. ABDOMEN and PELVIS: Intraperitoneal space: Unremarkable. No free air. No significant fluid collection. Bones/joints: There is an ill-defined 3.5 cm low-density in the left side of the pelvis located medial to the quadrilateral plate of the left iliac bone. Mild to moderate degenerative changes throughout the spine. No acute fracture, subluxation, or spinal stenosis. Soft tissues: Unremarkable. Vasculature: Unremarkable. No abdominal aortic aneurysm. Lymph nodes: Unremarkable. No enlarged lymph nodes. IMPRESSION: 1. There is an ill-defined 3.5 cm low-density in the left side of the pelvis located medial to the quadrilateral plate of the left iliac bone. This is nonspecific. Questionable abscess versus mass or lymphadenopathy. This is not well evaluated without the use of IV contrast. 2. Severe hepatomegaly measuring 26.6 cm craniocaudad. No focal liver lesion is seen. 3. The liver may compress the right lower quadrant ileostomy. There are scattered gas fluid levels within nondilated small bowel suggesting ileus. There is diverticulosis of the sigmoid colon without evidence of acute diverticulitis. 4. Small, 1 cm in left pleural effusion with mild bibasilar atelectasis. Mild to moderate cardiomegaly is present. Electronically signed by: Dagoberto Elliott MD 07/01/23 00:50 AM MDM Narrative Prior records/ancillary studies reviewed and summarized above. Nursing notes reviewed. Additional history obtained from EMS. The patient's history was concerning for subjective fever and chills with increased confusion in a patient with bladder cancer. Differential diagnosis: Etiologies such as progression of cancer, sepsis, urosepsis, metabolic, infection, hypo/hyperglycemia, electrolyte abnormalities, cardiac sources, intracerebral event, toxicologic, neurologic, as well as others were entertained. Physical examination: As above. ER treatment provided: IV Lock An order was placed for continuous cardiac monitoring. The monitor shows a rate of 60-100 with a sinus rhythm per my interpretation. IV fluids, cefepime, vancomycin On reassessment the patient felt better. Diagnostics interpretation by me: ECG: Ordered for weakness EKG: Normal sinus, normal intervals, no acute ST-T wave changes. Impression normal sinus rhythm independent interpreted by myself The labs Independently Interpreted by myself revealed acute renal failure. Elevated troponin concerning for type II CA Blood cultures pending Neutropenia Imaging studies: Chest x-ray with no acute consolidation, pneumothorax or free air per my independent interpretation Imaging as above Consultation: A consultation was placed with the hospitalist. The case was discussed and diagnostics were reviewed. The patient was evaluated in the ER for further treatment. Exam and history seem consistent with acute renal failure with sinusitis and type II CA with sepsis. Patient was medicated as above. She was started on empiric antibiotics and given fluids per septic protocol. arrived and states that last month they were in [place] for a kidney blockage of some sort. No surgery was required and patient just received antibiotics. Unfortunately, [facility] is down and I cannot review these records. Medicine was consulted and case discussed. Patient be admitted to the medical service. Patient and family are agreeable. By the evaluation outlined above emergent etiologies such as electrolyte abnormalities, intracerebral event, toxologic, neurologic, abnormalities blood glucose, as well as others were deemed relatively unlikely. The pt informed about the findings as listed above. All questions were answered and pleased with the treatment. The chart was completed utilizing [employer] Speech voice recognition software. Grammatical errors, random word insertions, pronoun errors, and incomplete sentences are an occassional consequence of this system due to software limitations, ambient noise, and hardware issues. Any formal questions or concerns about the content, text, or information contained within the body of this dictation should be directly addressed to the physician medical practice assistant for clarification. Attending Attestation: I Dagoberto Siddiqui MD I have reviewed the advanced practitioner's documentation and agree with the plan of care. I accept the responsibility for the associated risk of managing the patient. With antibiotics for possible urinary source infection with neutropenia as well as acute kidney injury and given hydration here. Admitted. No hypotension or elevated lactate noted. Impression & Plan Acute renal failure (ARF), Sinusitis, Myocardial infarction type 2, Herpes stomatitis, Sepsis Discharge Plan Visit Data Chief Complaint: Altered Mental Status Stated Complaint: SICK PERSON, ALTERED MENTAL STATUS ED Provider: Dagoberto Siddiqui ED Midlevel Provider: Christine Ramos Discharge Problem: Acute renal failure (ARF), Sinusitis, Myocardial infarction type 2, Herpes stomatitis, Sepsis Patient Disposition: Admitted As Inpatient Condition: Fair Forms Stand Alone Forms: [facility] Prescriptions Prescriptions: No Action loratadine [Claritin] 10 mg Tablet 10 mg PO DAILY PRN (Reason: allergies) azelastine 137 mcg (0.1 %) Aerosol,[place] 1 spray INTRANASAL BID PRN (Reason: Nasal Congestion) multivitamin Tablet 1 tab PO Q OTHER DAY midodrine 5 mg tablet 5 mg PO TID Zarxio 480 mcg/0.8 mL syringe 480 mcg subcut [id number] Rx Instructions: Take on mon, e, , fri Boost Liquid 1 ea PO DAILY acetaminophen [Tylenol] 325 mg Tablet 650 mg PO Q4 PRN (Reason: Pain) Referrals Referrals: Nichole Lizarraga MD [Primary Care Provider] - Discharge Problem: Acute renal failure (ARF) Qualifiers: Acute renal failure type: unspecified Qualified Code(s): N17.9 - Acute kidney failure, unspecified
--- OUTSIDE RECORDS SUMMARY | 2023-06-30 22:53 | External Medical Summary | Summary of Care ---
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); Pre-op testing Allergies Active Allergy Reactions Criticality Noted Date Comments Penicillins Edema airway,Rash High 03/10/2012 Last dose age 14 Pollen 01/17/2021 Ragweed 11/05/2022 documented as of this encounter (statuses as of 04/25/2023) Medications Medication Sig Dispensed Refills Start Date [...] as of this encounter (statuses as of 04/25/2023) Active Problems Problem Noted Date Diagnosed Date [...] as of this encounter (statuses as of 04/25/2023) Resolved Problems Problem Noted Date Diagnosed Date Resolved Date Chronic kidney disease, stage 3a 05/29/2021 05/02/2022 Overview: Per CKD protocol Fever 09/13/2015 10/21/2017 Kidney stone on left side Inguinal hernia 10/21/2017 Overview: Surgical repair Neutropenia 10/21/2017 documented as of this encounter (statuses as of 04/25/2023) Immunizations Name Administration Dates Next Due COVID-19 mRNA, LNP-s, No Pre serve, 2-Dose Series ([employer]) 01/05/2021,05/07/2020,04/16/2020 COVID-19, LNP-s, No Preserve , [...] Description 04/30/2023 8:15 AM EDT Telemedicine Urology, [place] [address] [place] [address] Saul Vargas MD [address] [place] [address] 05/01/2023 11:20 AM EDT Office Visit General Internal Medicine, [facility] [address] [place] [address] Laci Dye MD [address] [place] [address] 05/08/2023 10:19 AM EDT Hospital Encounter OR [facility], OPERATING ROOM [facility], [place] [address] [place] [address] Saul Vargas MD [address] [place] [address] 05/08/2023 10:19 AM EDT - 05/08/2023 6:05 PM EDT Surgery OR [facility] [address] [place] [address] Saul Vargas MD [address] [place] [address] CYSTECTOMY COMPLETE WITH URETEROILEAL CONDUIT WITH BILATERAL PELVIC LYMPHADENECTOMY 06/10/2023 10:30 AM EDT Office Visit Urology, [facility] [address] [place] [address] Chris Royal MD [address] [facility] [address] [address] [place] [address] 06/11/2023 1:45 PM EDT Office Visit Urology, [place] [address] [place] [address] Saul Vargas MD [address] [place], [place] [address] 06/24/2023 10:40 AM EDT Office Visit Nephrology, [facility] 200 [facility] [place] [address] Demetrius Sherman MD [address] [facility] [place] [address] 07/25/2023 11:15 AM EDT Office Visit Hematology/Oncolog y [facility] [address] [facility] [place] [address] Aguilar Lizarraga MD [address] [facility] [place] [address] 11/12/2023 9:20 AM EDT Office Visit General Internal Medicine [facility] [address] [facility] [place] [address] Nichole Lizarraga MD [address] [facility] [place] [address] Pending Results Name Type Priority Associated Diagnoses Date /Time TYPE AND SCREEN Lab Routine 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) Pre-op testing 04/25/2023 2:31 PM EST Scheduled Procedures Name Priority Associated Diagnoses Date/Ti me CYSTECTOMY COMPLETE WITH URETEROILEAL CONDUIT WITH BILATERAL PELVIC LYMPHADENECTOMY 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) 05/08/2023 10:19 AM EDT Health Maintenance Due Date Last Done Comments Zoster Vaccines (1 of 2) 01/23/1971 Colonoscopy 01/23/1997 Fecal Occult Blood Test 01/23/1997 Sigmoidoscopy 01/23/1997 DTaP,Tdap,and Td Vaccines (2 - Td or Tdap) 09/02/2022 09/02/2012 Albumin/Creatinine Ratio 03/13/2023 03/13/2022, 10/20 CKD PHOS USE SMARTSET 47153 03/13/2023 03/13/2022, 0 11/09/2021 Cologuard 06/09/2023 06/08/2020, 10/25/2016 Colorectal Cancer Screening 06/09/2023 Mammogram 10/12/2023 10/11/2022, 05/0 04/2021, 01/18/2020, Additional history exists GFR 10/20/2023 04/19/2023, 03/22, 04/05/2023, Additional history exists Depression Screening 11/07/2023 11/06/2022 CKD HGB USE SMARTSET 35010 04/18/202404/18, 04/19/2023, 04/12/2023, Additional history exists DXA Scan 10/02/2024 10/02/2022, [...] and were consensually agreed upon. Care Teams Dye Tank Tender Relationship Specialty Start Date End Date Nichole Lizarraga MD 200 [place] [address] PCP - General Internal Medicine 03/10/12 documented as of this encounter
--- OUTSIDE RECORDS SUMMARY | 2023-06-30 22:53 | External Medical Summary ---
Author Name Unknown Address Unknown Organization K09:[facility] [address] [place] [address] Laboratory Report Ordering Provider Test Date Status KEN RAY 04/19/2023 10:59:56 Final Observation Date Value Abnormality Reference (Units ) Status BUN 04/19/2023 10:59:56 14 6-20 (mg/dL) Final Creatinine 04/19/2023 10:59:56 1.2 Above high normal 0.5-1.0 (mg/dL) Final Glomerular filtration rate/1.73 sq M.predicted [Volume Rate/Area] in Serum, Plasma or Blood by Creatinine-based formula (CKD-EPI) 04/19/2023 10:59:56 49 Below low normal >=60 (mL/min) Final eGFR is calculated based on the CKD-EPI 2020 equation SODIUM 04/19/2023 10:59:56 144 135-146 (m mol/L) Final Potassium 04/19/2023 10:59:56 4.2 3.5-5.1 (m mol/L) Final Cl 04/19/2023 10:59:56 106 98-107 (mm ol/L) Final CO2 04/19/2023 10:59:56 30 22-32 (mmo l/L) Final Anion gap 04/19/2023 10:59:56 8 7-15 (mmol /L) Final Glucose 04/19/2023 10:59:56 98 70-120 (mg /dL) Final Albumin 04/19/2023 10:59:56 3.8 3.8-5.0 (g /dL) Final AST (Aspartate aminotransferase) 04/19/2023 10:59:56 14 10-35 (U/L) Fin al Alk Phos 04/19/2023 10:59:56 81 35-130 (U/ L) Final Bilirubin, Total 04/19/2023 10:59:56 0.5 <=1 .2 (mg/dL) Final Calcium 04/19/2023 10:59:56 9.5 8.4-10.2 ( mg/dL) Final Protein 04/19/2023 10:59:56 7.3 6.0-8.3 (g /dL) Final ALT (Alanine aminotransferase) 04/19/2023 10:59:56 8 Below low normal 10-35 (U/L) Final Performing Location [facility] [address] [place] [address]
--- OUTSIDE RECORDS SUMMARY | 2023-06-30 22:53 | External Medical Summary ---
Author Name Unknown Address Unknown Organization K09:[facility] [place] [address] Laboratory Report Ordering Provider Test Date Status KEN RAY 04/19/2023 10:59:56 Final Observation Date Value Abnormality Reference (Units ) Status WBC, Total 04/19/2023 10:59:56 6.65 4.00-10.8 0 (K/uL) Final RBC 04/19/2023 10:59:56 4.40 3.85-5.15 (M/uL) Final Hemoglobin 04/19/2023 10:59:56 12.7 12.0-15.3 (g/dL) Final HCT 04/19/2023 10:59:56 40.5 36.0-45.2 (%) Final MCV 04/19/2023 10:59:56 92.0 81.5-97.5 (fL) Final MCH 04/19/2023 10:59:56 28.9 27.0-34.0 (pg) Final MCHC 04/19/2023 10:59:56 31.4 32.0-36.0 (g/dL) Final RDW 04/19/2023 10:59:56 15.5 11.5-15.5 (%) Final Platelets 04/19/2023 10:59:56 145 140-400 (K /uL) Final MPV 04/19/2023 10:59:56 12.4 6.6-11.1 ( fL) Final Performing Location [facility] [place] [address]
--- OUTSIDE RECORDS SUMMARY | 2023-06-30 22:53 | External Medical Summary ---
Author Name Unknown Address Unknown Organization K09:[facility] 56-[address] - [address] [place] [address] Laboratory Report Ordering Provider Test Date Status KEN RAY 04/26/2023 10:31:10 Final Observation Date Value Abnormality Reference (Units ) Status BUN 04/26/2023 10:31:10 14 6-20 (mg/dL) Final Creatinine 04/26/2023 10:31:10 1.3 Above high normal 0.5-1.0 (mg/dL) Final Glomerular filtration rate/1.73 sq M.predicted [Volume Rate/Area] in Serum, Plasma or Blood by Creatinine-based formula (CKD-EPI) 04/26/2023 10:31:10 44 Below low normal >=60 (mL/min) Final eGFR is calculated based on the CKD-EPI 2020 equation SODIUM 04/26/2023 10:31:10 142 135-146 (m mol/L) Final Potassium 04/26/2023 10:31:10 4.5 3.5-5.1 (m mol/L) Final Cl 04/26/2023 10:31:10 106 98-107 (mm ol/L) Final CO2 04/26/2023 10:31:10 27 22-32 (mmo l/L) Final Anion gap 04/26/2023 10:31:10 9 7-15 (mmol /L) Final Glucose 04/26/2023 10:31:10 92 70-120 (mg /dL) Final Albumin 04/26/2023 10:31:10 3.8 3.8-5.0 (g /dL) Final AST (Aspartate aminotransferase) 04/26/2023 10:31:10 15 10-35 (U/L) Fin al Alk Phos 04/26/2023 10:31:10 75 35-130 (U/ L) Final Bilirubin, Total 04/26/2023 10:31:10 0.6 <=1 .2 (mg/dL) Final Calcium 04/26/2023 10:31:10 9.5 8.4-10.2 ( mg/dL) Final Protein 04/26/2023 10:31:10 7.2 6.0-8.3 (g /dL) Final ALT (Alanine aminotransferase) 04/26/2023 10:31:10 5 Below low normal 10-35 (U/L) Final Performing Location [facility] [address] [place] [address]
--- OUTSIDE RECORDS SUMMARY | 2023-06-30 22:53 | External Medical Summary ---
Author Name Unknown Address Unknown Organization K01:LABORATORY [facility] B LOOD BANK - [address] [place] [address] Laboratory Report Ordering Provider Test Date Status [place]AN [place] 04/25/2023 14:31:29 Final Observation Date Value Abnormality Reference (Units ) Status ABO 04/25/2023 14:31:29 B Final RH 04/25/2023 14:31:29 Positive Final RED BLOOD CELL ANTIBODY SCREEN 04/25/2023 14:31:29 Negative Final SPECIMEN EXPIRATION DATE 04/25/2023 14:31:29 05/11/2023 23:59 Final Performing Location LABORATORY [facility] BLOOD BANK - [address] [place] [address]
--- OUTSIDE RECORDS SUMMARY | 2023-06-30 22:53 | External Medical Summary | Summary of Care ---
Author Name Unknown Organization [facility] Address [address] [place] [address] Phone [phone] Care Team Providers Care Director Radiation Oncology Name Role Phone Nichole Lizarraga MD Primary Care Provider + Reason for Visit * Reason Comments H&P Surgery Encounter Details Date Type Department Care Team (Late st Contact Info) Description 04/25/2023 11:30 AM EST Office Visit Urology, [place] [address] [place], [place] [phone] Kin Joseph PA-C [address] [place] [address] Malignant neoplasm of dome of [...] mRNA, LNP-s, No Pre serve, 2-Dose Series ([employer]) 01/05/2021,05/07/2020,04/16/2020 COVID-19, LNP-s, No Preserve , Jasbir-sucrose, [...] Time: 12:07 PM PCP: Nichole Lizarraga MD [address] [place] [address] [place] [address] C/c Pre-operative History and Physical HPI: This [...] f/c, n/v/c/d. The patient denies h/o TIA/CVA, [place], sleep apnea, DVT/PE, or DM. PAST MEDICAL [...] MD at OR [facility] CYSTOSCOPY/TREAT MINOR LESION(S) N/A 06/05/2021 CYSTOURETHROSCOPY WITH FULGURATION MINOR BLADDER TUMOR performed by Chris Royal MD at OR [facility] CYSTOSCOPY/TREAT SML BLADDER TUMOR N/A 02/04/2023 CYSTOURETHROSCOPY WITH FULGURATION SMALL BLADDER TUMOR performed by Chris Royal MD at [facility] DENTAL SURGERY PROCEDURE NEC INCISION OF WINDPIPE, PLANNED Left 02/04/2017 TRACHEOSTOMY PLANNED performed by Nick Singh DO at [facility] INFORMATION 02/04/2017 never had a trach INFORMATION 1989 kidney stone removal LAPARO REMOVE K/URETER Left 02/01/2021 LAPAROSCOPIC NEPHRECTOMY TOTAL URETERECTOMY performed by Chris Royal MD at [facility] LARYNGOSCOPY, VOCAL CORD EXCISION/STRIPPING Left 02/04/2017 LARYNGOSCOPY DIRECT STRIPPING VOCAL CORD WITH MICROSCOPE performed by Nick Singh DO at OR [facility] REPAIR INITIAL INGUINAL HERNIA REDUCIBLE AGE 7 [...] Examination 2. 73 year old female with [id number] high-grade urothelial carcinoma of the bladder with [...] 04/25/2023 Kin Joseph PA-C Department of Urology [facility] 04/25/2023 12:07 PM documented in this encounter Plan of Treatment Upcoming Encounters Date Type Department Care Team (Latest Contact Info) Description 04/25/2023 1:30 PM EST Office Visit General Internal Medicine, [facility] [address] [place] [address] Yumiko Soriano MD [address] [place] [address] 04/30/2023 8:15 AM EDT Telemedicine Urology, [place] [address] [place] [address] Saul Vargas MD [address] [place] [address] 05/08/2023 10:19 AM EDT Hospital Encounter OR [facility], OPERATING ROOM [facility], [facility] [address] [place] [address] Saul Vargas MD [address] [place] [address] 05/08/2023 10:19 AM EDT - 05/08/2023 6:05 PM EDT Surgery OR [facility], OPERATING ROOM [facility], [facility] [address] [place] [address] Saul Vargas MD [address] [place] [address] CYSTECTOMY COMPLETE WITH URETEROILEAL CONDUIT WITH BILATERAL PELVIC LYMPHADENECTOMY 06/10/2023 10:30 AM EDT Office Visit Urology, [facility] [address] [facility] [place] [address] Chris Royal MD [address] [address] [place] [address] 06/11/2023 1:45 PM EDT Office Visit Urology, [place] [address] [place] [address] Saul Vargas MD [address] [place], [place] [address] 06/24/2023 10:40 AM EDT Office Visit Nephrology, [facility] [address] [facility] [place], [place] [address] Demetrius Sherman MD [address] [facility] [place] [address] 07/25/2023 11:15 AM EDT Office Visit Hematology/Oncolog y [facility] [address] [facility] [place], [place] [phone] Aguilar Lizarraga MD [address] [facility] [place], [place] [address] 11/12/2023 9:20 AM EDT Office Visit General Internal Medicine [facility] [address] [facility] [address] [place] [address] Nichole Lizarraga MD [address] [facility] [place], [place] [address] Scheduled Orders Name Type Priority Associated Diagnoses Orde r Schedule TYPE AND SCREEN Lab Routine 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) Pre-op testing Expected: 04/25/2023, Expires: 05/25/2024 CULTURE, URINE, QUANTITATIVE Lab Routine 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) Pre-op testing Ordered: 04/25/2023 Scheduled Procedures Name Priority Associated Diagnoses Date/Ti [...] 03/13/2023 03/13/2022, 10/20 CKD PHOS USE SMARTSET 56060 03/13/2023 03/13/2022, 0 11/09/2021 Cologuard 06/09/2023 06/08/2020, 10/25/2016 Colorectal Cancer Screening 06/09/2023 Mammogram 10/12/2023 10/11/2022, 05/0 04/2021, 01/18/2020, Additional history exists GFR 10/20/2023 04/19/2023, 03/22, 04/05/2023, Additional history exists Depression Screening 11/07/2023 11/06/2022 CKD HGB USE SMARTSET 22883 04/18/202404/18, 04/19/2023, 04/12/2023, Additional history exists DXA [...] and were consensually agreed upon. Care Teams Director Radiation Oncology Relationship Specialty Start Date End Date Nichole Lizarraga MD [address] [facility] [place] [address] PCP - General Internal Medicine 03/10/12 documented as of this encounter
--- OUTSIDE RECORDS SUMMARY | 2023-06-30 22:53 | External Medical Summary | Summary of Care ---
Author Name Unknown Organization [facility] Address [address] [place] [address] Phone [phone] Care Team Providers Care Facilities Maintenance Engineer Name Role Phone Nichole Lizarraga MD Primary Care Provider + Reason for Visit * Reason Comments Nurse Documentation Encounter Details Date Type Department Care Team (Late st Contact Info) Description 04/25/2023 12:30 PM EST Nurse Only General Surgery, [place] [address], [place] [phone] A6, Wound Ostomy Nurse [address] [place], [place] [phone] Nurse Documentation Allergies Active Allergy Reactions Criticality Noted [...] mRNA, LNP-s, No Pre serve, 2-Dose Series ([employer]) 01/05/2021,05/07/2020,04/16/2020 COVID-19, LNP-s, No Preserve , Jasbir-sucrose, [...] Date Smoking Tobacco: Never Smokeless Tobacco: Never Tobacco Cessation:Counseling Given: [...] Time Taken Comments Blood Pressure 124/83 04/25/2023 1:15 PM EST Pulse 78 04/25/2023 1:15 PM EST Temperature - - Respiratory Rate - - Oxygen Saturation - - Inhaled Oxygen Concentration - - Weight - - Height - - Body Mass Index - - documented in this encounter Progress Notes * Shanice Rubin RN - 04/25/2023 2:32 PM EST Introduced role of ostomy nurse, ostomy purpose/function, and explained process of suggested stoma site placement. Reviewed "What to Expect after Urostomy Surgery" booklet. Discussed possibility site may be changedat surgeon's discretion. Patient verbalized understanding. Abdomen visualized in multiple positions. Suggested stoma site placed on right side of abdomen, within anatomical landmarks and patient's line of sight, on a flat surface, avoiding natural creases and preferred belt line. Plan to follow post-op for ostomy teaching. documented in this encounter Plan of Treatment Upcoming Encounters Date Type Department Care Team (Latest Contact Info) Description 04/30/2023 8:15 AM EDT [facility] [address] [place] [address] Saul Vargas MD [address] [place] [address] 05/01/2023 11:20 AM EDT Office Visit General Internal Medicine, [facility] [address] [place] [address] Laci Dye MD [address] [place] [address] 05/08/2023 10:19 AM EDT Hospital Encounter OR [facility], OPERATING ROOM [facility], [facility] [address] [place] [address] Saul Vargas MD [address] [place] [address] 05/08/2023 10:19 AM EDT - 05/08/2023 6:05 PM EDT Surgery OR [facility], OPERATING ROOM [facility], [facility] [address] [place] [address] Saul Vargas MD [address] [place] [address] CYSTECTOMY COMPLETE WITH URETEROILEAL CONDUIT WITH BILATERAL PELVIC LYMPHADENECTOMY 06/10/2023 10:30 AM EDT Office Visit Urology, [facility] [address] [facility] [place] [address] Chris Royal MD 27 [facility] [address] [place] [address] 06/11/2023 1:45 PM EDT Office Visit Urology, [place] [address] [place] [address] Saul Vargas MD [address] [place] [address] 06/24/2023 10:40 AM EDT Office Visit Nephrology, [facility] [address] [place] [address] Demetrius Sherman MD [address] [place] [address] 07/25/2023 11:15 AM EDT Office [facility] [place] [address] [facility] [place], [place] [phone] Aguilar Lizarraga MD 200 [facility] [place] [address] 11/12/2023 9:20 AM EDT Office Visit General Internal Medicine [facility] [place] [facility] [place] [address] Nichole Lizarraga MD 200 [facility] [place] [address] Scheduled Procedures Name Priority Associated Diagnoses Date/Ti [...] 03/13/2023 03/13/2022, 10/20 CKD PHOS USE SMARTSET 02127 03/13/2023 03/13/2022, 0 11/09/2021 Cologuard 06/09/2023 06/08/2020, 10/25/2016 Colorectal Cancer Screening 06/09/2023 Mammogram 10/12/2023 10/11/2022, 05/0 04/2021, 01/18/2020, Additional history exists GFR 10/20/2023 04/19/2023, 03/22, 04/05/2023, Additional history exists Depression Screening 11/07/2023 11/06/2022 CKD HGB USE SMARTSET 95916 04/18/202404/18, 04/19/2023, 04/12/2023, Additional history exists DXA [...] and were consensually agreed upon. Care Teams Facilities Maintenance Engineer Relationship Specialty Start Date End Date Nichole Lizarraga MD [address] [facility] [place] [address] PCP - General Internal Medicine 03/10/12 documented as of this encounter
--- OUTSIDE RECORDS SUMMARY | 2023-06-30 22:53 | External Medical Summary ---
Author Name Unknown Address Unknown Organization K09[facility] [place] [address] Laboratory Report Ordering Provider Test Date Status KEN RAY 04/19/2023 10:59:56 Final Observation Date Value Abnormality Reference (Units ) Status SYNC LEUKOCYTES IN BLOOD BY AUTOMATED COUNT 04/19/2023 10:59:56 6.65 4.00-10.80 (K/uL) Final Segs 04/19/2023 10:59:56 27.6 Below low normal 40.0-75.0 (%) Final Lymphs % 04/19/2023 10:59:56 53.4 Above high normal 18.0-42.0 (%) Final Monos 04/19/2023 10:59:56 15.8 Above high normal 1.0-11.0 (%) Final Eosinophils 04/19/2023 10:59:56 2.3 0.0-6.0 (%) Final Basos 04/19/2023 10:59:56 0.9 0.0-2.0 (%) Final Absolute Segs 04/19/2023 10:59:56 1.84 1.80-7.70 (K/uL) Final Lymphs, absolute 04/19/2023 10:59:56 3.55 1.00-4.80 (K/ul) Final Monos, Abs 04/19/2023 10:59:56 1.05 0.00-1.10 (K/uL) Final Eos, Abs 04/19/2023 10:59:56 0.15 0.00-0.70 (K/uL) Final Basos, Abs 04/19/2023 10:59:56 0.06 0.00-0.20 (K/uL) Final Performing Location [facility] [place] [address]
--- OUTSIDE RECORDS SUMMARY | 2023-06-30 22:53 | External Medical Summary | Summary of Care ---
Author Name Unknown Organization [facility] Address [address] [place] [address] Phone [phone] Care Team Providers Care Conveyor Belt Installer Name Role Phone Nichole Lizarraga MD Primary Care Provider + Reason for Visit * Reason Comments H&P Surgery Encounter Details Date Type Department Care Team (Late st Contact Info) Description 04/25/2023 11:30 AM EST Office Visit Urology, [place] [address] [place], [place] [phone] Kin Joseph PA-C [address] [place] [address] Malignant neoplasm of dome of [...] mRNA, LNP-s, No Pre serve, 2-Dose Series ([employer]) 01/05/2021,05/07/2020,04/16/2020 COVID-19, LNP-s, No Preserve , Jasbir-sucrose, [...] Time: 12:07 PM PCP: Nichole Lizarraga MD [address] [place] [address] [place] [address] C/c Pre-operative History and Physical HPI: This [...] f/c, n/v/c/d. The patient denies h/o TIA/CVA, [place], sleep apnea, DVT/PE, or DM. PAST MEDICAL [...] performed by Chris Royal MD at OR [facility] CYSTOSCOPY/TREAT MINOR LESION(S) N/A 06/05/2021 CYSTOURETHROSCOPY WITH FULGURATION MINOR BLADDER TUMOR performed by Chris Royal MD at OR [facility] CYSTOSCOPY/TREAT SML BLADDER TUMOR N/A 02/04/2023 CYSTOURETHROSCOPY WITH FULGURATION SMALL BLADDER TUMOR performed by Chris Royal MD at [facility] DENTAL SURGERY PROCEDURE NEC INCISION OF WINDPIPE, PLANNED Left 02/04/2017 TRACHEOSTOMY PLANNED performed by Nick Singh DO at [facility] INFORMATION 02/04/2017 never had a trach INFORMATION 1989 kidney stone removal LAPARO REMOVE K/URETER Left 02/01/2021 LAPAROSCOPIC NEPHRECTOMY TOTAL URETERECTOMY performed by Chris Royal MD at [facility] LARYNGOSCOPY, VOCAL CORD EXCISION/STRIPPING Left 02/04/2017 LARYNGOSCOPY DIRECT STRIPPING VOCAL CORD WITH MICROSCOPE performed by Nick Singh DO at [facility] REPAIR INITIAL INGUINAL HERNIA REDUCIBLE AGE 7 [...] Examination 2. 73 year old female with [id number] high-grade urothelial carcinoma of the bladder with [...] 04/25/2023 Kin Joseph PA-C Department of Urology [facility] 04/25/2023 12:07 PM documented in this encounter Plan of Treatment Upcoming Encounters Date Type Department Care Team (Latest Contact Info) Description 04/30/2023 8:15 AM EDT Telemedicine Urology, [place] [address] [place] [address] Saul Vargas MD [address] [place] [address] 05/01/2023 11:20 AM EDT Office Visit General Internal Medicine, [facility] [address] [place] [address] Laci Dye MD [address] [place] [address] 05/08/2023 10:19 AM EDT Hospital Encounter [place] [facility], OPERATING ROOM [facility] [address] [place] [address] Saul Vargas MD [address] [place] [address] 05/08/2023 10:19 AM EDT - 05/08/2023 6:05 PM EDT Surgery OR [facility], OPERATING ROOM [facility] [address] [place] [address] Saul Vargas MD [address] [place] [address] CYSTECTOMY COMPLETE WITH URETEROILEAL CONDUIT WITH BILATERAL PELVIC LYMPHADENECTOMY 06/10/2023 10:30 AM EDT Office Visit Urology, [facility] [address] [facility] [place] [address] Chris Royal MD [address] [address] [place] [address] 06/11/2023 1:45 PM EDT Office Visit Urology, [place] [address] [place] [address] Saul Vargas MD [address] [place], [place] [address] 06/24/2023 10:40 AM EDT Office Visit Nephrology, [facility] 200 [facility] [place] [address] Demetrius Sherman MD 200 [facility] [place] [address] 07/25/2023 11:15 AM EDT Office Visit Hematology/Oncolog y [facility] 200 [facility] [place] [phone] Aguilar Lizarraga MD 200 [facility] [place] [address] 11/12/2023 9:20 AM EDT Office Visit General Internal Medicine [facility] 200 [facility] [place] [address] Nichole Lizarraga MD 200 [facility] [address] Pending Results Name Type Priority Associated Diagnoses Date /Time TYPE AND SCREEN Lab Routine 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) Pre-op testing 04/25/2023 2:31 PM EST Scheduled Orders Name Type Priority Associated Diagnoses [...] 03/13/2023 03/13/2022, 10/20 CKD PHOS USE SMARTSET 20459 03/13/2023 03/13/2022, 0 11/09/2021 Cologuard 06/09/2023 06/08/2020, 10/25/2016 Colorectal Cancer Screening 06/09/2023 Mammogram 10/12/2023 10/11/2022, 05/0 04/2021, 01/18/2020, Additional history exists GFR 10/20/2023 04/19/2023, 03/22, 04/05/2023, Additional history exists Depression Screening 11/07/2023 11/06/2022 CKD HGB USE SMARTSET 30146 04/18/202404/18, 04/19/2023, 04/12/2023, Additional history exists DXA [...] and were consensually agreed upon. Care Teams Conveyor Belt Installer Relationship Specialty Start Date End Date Nichole Lizarraga MD 200 [facility] [place], [place] [address] PCP - General Internal Medicine 03/10/12 documented as of this encounter
--- OUTSIDE RECORDS SUMMARY | 2023-06-30 22:53 | External Medical Summary | Summary of Care ---
Author Name Unknown Organization [facility] Address [address] [place] [address] Phone [phone] Care Team Providers Care Heel Sprayer Name Role Phone Nichole Lizarraga MD Primary Care Provider + Reason for Visit * Reason Comments H&P Surgery Encounter Details Date Type Department Care Team (Late st Contact Info) Description 04/25/2023 11:30 AM EST Office Visit Urology, [place] [address] [place], [place] [phone] Kin Joseph PA-C [address] [place] [address] Malignant neoplasm of dome of [...] mRNA, LNP-s, No Pre serve, 2-Dose Series ([employer]) 01/05/2021,05/07/2020,04/16/2020 COVID-19, LNP-s, No Preserve , Jasbir-sucrose, [...] Time: 12:07 PM PCP: Nichole Lizarraga MD [address] [place] [address] C/c Pre-operative History and Physical HPI: This [...] f/c, n/v/c/d. The patient denies h/o TIA/CVA, [place], sleep apnea, DVT/PE, or DM. PAST MEDICAL [...] performed by Chris Royal MD at OR [facility] CYSTOSCOPY/TREAT MINOR LESION(S) N/A 06/05/2021 CYSTOURETHROSCOPY WITH FULGURATION MINOR BLADDER TUMOR performed by Chris Royal MD at OR [facility] CYSTOSCOPY/TREAT SML BLADDER TUMOR N/A 02/04/2023 CYSTOURETHROSCOPY WITH FULGURATION SMALL BLADDER TUMOR performed by Chris Royal MD at [facility] DENTAL SURGERY PROCEDURE NEC INCISION OF WINDPIPE, PLANNED Left 02/04/2017 TRACHEOSTOMY PLANNED performed by Nick Singh DO at [facility] INFORMATION 02/04/2017 never had a trach INFORMATION 1989 kidney stone removal LAPARO REMOVE K/URETER Left 02/01/2021 LAPAROSCOPIC NEPHRECTOMY TOTAL URETERECTOMY performed by Chris Royal MD at [facility] LARYNGOSCOPY, VOCAL CORD EXCISION/STRIPPING Left 02/04/2017 LARYNGOSCOPY DIRECT STRIPPING VOCAL CORD WITH MICROSCOPE performed by Nick Singh DO at OR [facility] REPAIR INITIAL INGUINAL HERNIA REDUCIBLE AGE 7 [...] Examination 2. 73 year old female with [id number] high-grade urothelial carcinoma of the bladder with [...] 04/25/2023 Kin Joseph PA-C Department of Urology [facility] 04/25/2023 12:07 PM documented in this encounter Plan of Treatment Upcoming Encounters Date Type Department Care Team (Latest Contact Info) Description 04/30/2023 8:15 AM EDT Telemedicine Urology, [place] [address] [place] [address] Saul Vargas MD [address] [place] [address] 05/01/2023 11:20 AM EDT Office Visit General Internal Medicine, [facility] [address] [place] [address] Laci Dye MD [address] [place] [address] 05/08/2023 10:19 AM EDT Hospital Encounter OR [facility] OPERATING ROOM [facility] [address] [place] [address] Saul Vargas MD [address] [place] [address] 05/08/2023 10:19 AM EDT - 05/08/2023 6:05 PM EDT Surgery OR [facility], OPERATING ROOM [facility], [facility] [address] [place] [address] Saul Vargas MD [address] [place] [address] CYSTECTOMY COMPLETE WITH URETEROILEAL CONDUIT WITH BILATERAL PELVIC LYMPHADENECTOMY 06/10/2023 10:30 AM EDT Office Visit Urology, [facility] 132 [facility] [place] [address] Chris Royal MD [address] [address] [place] [address] 06/11/2023 1:45 PM EDT Office Visit Urology, [place] [address] [place] [address] Saul Vargas MD [address] [place], [place] [address] 06/24/2023 10:40 AM EDT Office Visit Nephrology, [facility] 200 [facility] [place] [address] Demetrius Sherman MD 200 [facility] [place], [place] [address] 07/25/2023 11:15 AM EDT Office Visit Hematology/Oncolog y [facility] 200 [facility] [place], [place] [phone] Aguilar Lizarraga MD 200 [facility] [place], [place] [address] 11/12/2023 9:20 AM EDT Office Visit General Internal Medicine [facility] 200 [facility] [place], [place] [address] Nichole Lizarraga MD 200 [facility] [place] [address] Scheduled Orders Name Type Priority Associated Diagnoses Orde r Schedule CULTURE, URINE, QUANTITATIVE Lab Routine Malignant neoplasm [...] 03/13/2023 03/13/2022, 10/20 CKD PHOS USE SMARTSET 96366 03/13/2023 03/13/2022, 0 11/09/2021 Cologuard 06/09/2023 06/08/2020, 10/25/2016 Colorectal Cancer Screening 06/09/2023 Mammogram 10/12/2023 10/11/2022, 05/0 04/2021, 01/18/2020, Additional history exists GFR 10/20/2023 04/19/2023, 03/22, 04/05/2023, Additional history exists Depression Screening 11/07/2023 11/06/2022 CKD HGB USE SMARTSET 20491 04/18/202404/18, 04/19/2023, 04/12/2023, Additional history exists DXA [...] Not on filedocumented as of this encounter Results * TYPE AND SCREEN (04/25/2023 2:31 PM EST) ABO B 04/25/2023 3:40 PM EST LABORATORY [facility] BLOOD BANK Rh Positive 04/25/2023 3:40 PM EST LABORATORY [facility] BLOOD B[facility] Red Blood Cell Antibody Screen Negative 04/25/2023 3:40 PM EST LABORATORY [facility] BLOOD [facility] Specimen Expiration Date 05/11/2023 23:59 04/25/2023 3:40 PM EST LABORATORY [facility] BLOOD B[facility] Blood Venous blood specimen / Unknown Venipuncture / Unknown 04/25/2023 2:31 PM EST 04/25/2023 2:39 PM EST Kin Joseph PA-C LAB BLOOD BANK TEST ORDERABLES LABORATORY [facility] BLOOD BANK [address] [place] [address] documented in this encounter Visit Diagnoses Diagnosis [...] and were consensually agreed upon. Care Teams Heel Sprayer Relationship Specialty Start Date End Date Nichole Lizarraga MD 200 [facility] [place] [address] PCP - General Internal Medicine 03/10/12 documented as of this encounter
--- OUTSIDE RECORDS SUMMARY | 2023-06-30 22:53 | External Medical Summary | Summary of Care ---
Author Name Unknown Organization [facility] Address [address] [place] [address] Phone [phone] Care Team Providers Care Office Associate Name Role Phone Nichole Lizarraga MD Primary Care Provider + Reason for Visit * Reason Comments H&P Surgery Encounter Details Date Type Department Care Team (Late st Contact Info) Description 04/25/2023 11:30 AM EST Office Visit Urology, [facility] [address], [place] [id number] Kin Joseph PA-C [address] [place] [address] Malignant neoplasm of dome of [...] mRNA, LNP-s, No Pre serve, 2-Dose Series (Cell[employer]) 01/05/2021,05/07/2020,04/16/2020 COVID-19, LNP-s, No Preserve , Jasbir-sucrose, [...] Time: 12:07 PM PCP: Nichole Lizarraga MD [address] [place] [address] [place] [id number] C/c Pre-operative History and Physical HPI: This [...] f/c, n/v/c/d. The patient denies h/o TIA/CVA, IN, sleep apnea, DVT/PE, or DM. PAST MEDICAL [...] performed by Chris Royal MD at OR [facility] CYSTOSCOPY/TREAT MINOR LESION(S) N/A 06/05/2021 CYSTOURETHROSCOPY WITH FULGURATION MINOR BLADDER TUMOR performed by Chris Royal MD at OR [facility] CYSTOSCOPY/TREAT SML BLADDER TUMOR N/A 02/04/2023 CYSTOURETHROSCOPY WITH FULGURATION SMALL BLADDER TUMOR performed by Chris Royal MD at [facility] DENTAL SURGERY PROCEDURE NEC INCISION OF [place], PLANNED Left 02/04/2017 TRACHEOSTOMY PLANNED performed by Nick Singh DO at [facility] INFORMATION 02/04/2017 never had a trach INFORMATION 1989 kidney stone removal LAPARO REMOVE K/URETER Left 02/01/2021 LAPAROSCOPIC NEPHRECTOMY TOTAL URETERECTOMY performed by Chris Royal MD at [facility] LARYNGOSCOPY, VOCAL CORD EXCISION/STRIPPING Left 02/04/2017 LARYNGOSCOPY DIRECT STRIPPING VOCAL CORD WITH MICROSCOPE performed by Nick Singh DO at OR [facility] REPAIR INITIAL INGUINAL HERNIA REDUCIBLE AGE 7 [...] Examination 2. 73 year old female with [id number] high-grade urothelial carcinoma of the bladder with [...] 04/25/2023 Kin Joseph PA-C Department of Urology [facility] 04/25/2023 12:07 PM documented in this encounter Plan of Treatment Upcoming Encounters Date Type Department Care Team (Latest Contact Info) Description 04/30/2023 8:15 AM EDT Telemedicine Urology, [facility] [address] [place] [address] Saul Vargas MD [address] [place] [address] 05/01/2023 11:20 AM EDT Office Visit General Internal Medicine, [facility] [address] [place] [address] Laci Dye MD [address] [place] [address] 05/08/2023 10:19 AM EDT Hospital Encounter OR [facility], OPERATING ROOM [facility], [facility] [address] [place] [address] Saul Vargas MD [address] [place] [address] 05/08/2023 10:19 AM EDT - 05/08/2023 6:05 PM EDT Surgery OR [facility], OPERATING ROOM [facility], [facility] [address] [place] [address] Saul Vargas MD [address] [place] [address] CYSTECTOMY COMPLETE WITH URETEROILEAL CONDUIT WITH BILATERAL PELVIC LYMPHADENECTOMY 06/10/2023 10:30 AM EDT Office Visit Urology, [facility] [address] [facility] [place] [address] Chris Royal MD [address] [address] [place] [address] 06/11/2023 1:45 PM EDT Office Visit Urology, [facility] [address] [place] [address] Saul Vargas MD [address], [place] [id number] 06/24/2023 10:40 AM EDT Office Visit Nephrology, [facility] [address] [place] [address] Demetrius Sherman MD [address] [place], [place] [address] 07/25/2023 11:15 AM EDT Office Visit Hematology/Oncolog y [facility] [address] [place], [place] [id number] Aguilar Lizarraga MD [address] [place], [place] [address] 11/12/2023 9:20 AM EDT Office Visit General Internal Medicine [facility] [address] [place], [place] [address] Nichole Lizarraga MD [address] [place] [address] Scheduled Orders Name Type Priority Associated Diagnoses [...] 03/13/2023 03/13/2022, 10/20 CKD PHOS USE SMARTSET 37704 03/13/2023 03/13/2022, 0 11/09/2021 Cologuard 06/09/2023 06/08/2020, 10/25/2016 Colorectal Cancer Screening 06/09/2023 Mammogram 10/12/2023 10/11/2022, 05/0 04/2021, 01/18/2020, Additional history exists GFR 10/20/2023 04/19/2023, 03/22, 04/05/2023, Additional history exists Depression Screening 11/07/2023 11/06/2022 CKD HGB USE SMARTSET 76604 04/18/202404/18, 04/19/2023, 04/12/2023, Additional history exists DXA [...] ABO B 04/25/2023 3:40 PM EST LABORATORY [facility] BLOOD BANK Rh Positive 04/25/2023 3:40 PM EST LABORATORY [facility] BLOOD BANK Red Blood Cell Antibody Screen Negative 04/25/2023 3:40 PM EST LABORATORY [facility] BLOOD BANK Specimen Expiration Date 05/11/2023 23:59 04/25/2023 3:40 PM EST LABORATORY [facility] BLOOD BANK Blood Venous blood specimen / Unknown Venipuncture / Unknown 04/25/2023 2:31 PM EST 04/25/2023 2:39 PM EST Kin Joseph PA-C LAB BLOOD BANK TEST ORDERABLES LABORATORY [facility] BLOOD BANK [address] [place] [address] documented in this encounter Visit [...] and were consensually agreed upon. Care Teams Office Associate Relationship Specialty Start Date End Date Nichole Lizarraga MD [address] [place] [address] PCP - General Internal Medicine 03/10/12 documented as of this encounter
--- OUTSIDE RECORDS SUMMARY | 2023-06-30 22:53 | External Medical Summary ---
Author Name Unknown Address Unknown Organization [id number]:[facility] [place] - [address] [place] [address] Laboratory Report Ordering Provider Test Date Status MINNIE CARR 04/25/2023 16:05:12 Final Observation Date Value Abnormality Reference (Units) Status Bacteria identified in Specimen by Culture 04/25/2023 16:05:12 No significant growth Final Test: Culture, Urine, Quanti tative
Specimen Source: Urine, Clean Catch
Specimen Type: Urine
Specimen Date: 04/25/2023 4:05 PM
Result Date: 04/26/2023 12:49 PM
Result Status: Final result
Resulting Lab: [facility] [place]
[address]
[place] [address]

CULTURE

No significant growth

null Performing Location [facility] [place] - [address] [place] [address]
--- OUTSIDE RECORDS SUMMARY | 2023-06-30 22:53 | External Medical Summary | Summary of Care ---
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) Allergies Active Allergy Reactions Criticality Noted Date Comments Penicillins Edema airway,Rash High 03/10/2012 Last dose age 14 Pollen 01/17/2021 Ragweed 11/05/2022 documented as of this encounter (statuses as of 04/19/2023) Medications Medication Sig Dispensed Refills Start Date [...] as of this encounter (statuses as of 04/19/2023) Active Problems Problem Noted Date Diagnosed Date [...] as of this encounter (statuses as of 04/19/2023) Resolved Problems Problem Noted Date Diagnosed Date Resolved Date Chronic kidney disease, stage 3a 05/29/2021 05/02/2022 Overview: Per CKD protocol Fever 09/13/2015 10/21/2017 Kidney stone on left side Inguinal hernia 10/21/2017 Overview: Surgical repair Neutropenia 10/21/2017 documented as of this encounter (statuses as of 04/19/2023) Immunizations Name Administration Dates Next Due COVID-19 mRNA, LNP-s, No Pre serve, 2-Dose Series ([email or web address]) 01/05/2021,05/07/2020,04/16/2020 COVID-19, LNP-s, No Preserve , Jasbir-sucrose, [...] Care Team (Latest Contact Info) Description 04/25/2023 11:30 AM EST Office Visit Urology, [place] [address] [place] [address] Kin Joseph PA-C [address] [place] [address] 04/25/2023 12:30 PM EST Nurse Only General Surgery, [place] [address] [place] [address] A6, Wound Ostomy Nurse [address] [place] [address] 04/25/2023 1:30 PM EST Office Visit General Internal Medicine, [facility] [address] [place] [address] Yumiko Soriano MD [address] [place] [address] 04/30/2023 8:15 AM EDT Telemedicine Urology, [place] [address], [place] [id number] Saul Vargas MD [address] [place] [address] 05/08/2023 10:19 AM EDT Hospital [facility]counter [facility], [facility] [address] [place] [address] Saul Vargas MD [address] [place] [address] 05/08/2023 10:19 AM EDT - 05/08/2023 6:05 PM EDT Surgery [place] [facility] [facility]PERATING ROOM [facility] [address] [place] [address] Saul Vargas MD [address] [place] [address] CYSTECTOMY COMPLETE WITH URETEROILEAL CONDUIT WITH BILATERAL PELVIC LYMPHADENECTOMY 06/10/2023 10:30 AM EDT Office Visit Urology, [facility] [address] [facility] [place] [address] Chris Royal MD 27 [facility] [address] [place] [address] 06/11/2023 1:45 PM EDT Office Visit Urology, [place] [address] [place] [address] Saul Vargas MD [address] [place] [address] 06/24/2023 10:40 AM EDT Office Visit Nephrology, [facility] [place] [address] [place] [address] Demetrius Sherman MD 200 [place] [address] 07/25/2023 11:15 AM EDT Office Visit Hematology/Oncolog y [facility] [place] [address] [place] [phone] Aguilar Lizarraga MD [address] [place] [address] 11/12/2023 9:20 AM EDT Office Visit General Internal Medicine [place] [address] [place] [address] Nichole Lizarraga MD [address] [place] [address] Pending Results Name Type Priority Associated Diagnoses Date /Time COMPREHENSIVE METABOLIC PANEL Lab STAT 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) 04/19/2023 10:59 AM EST MAGNESIUM Lab STAT 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) 04/19/2023 10:59 AM EST Scheduled Procedures Name Priority Associated [...] 03/13/2023 03/13/2022, 10/20 CKD PHOS USE SMARTSET 06907 03/13/2023 03/13/2022, 0 11/09/2021 Cologuard 06/09/2023 06/08/2020, 10/25/2016 Colorectal Cancer Screening 06/09/2023 GFR 10/11/2023 04/12/2023, 03/21, 03/25/2023, Additional history exists Mammogram 10/12/2023 10/11/2022, 05/0 04/2021, 01/18/2020, Additional history exists Depression Screening 11/07/2023 11/06/2022 CKD HGB USE SMARTSET 50209 04/12/202404/18, 04/19/2023, 04/12/2023, Additional history exists DXA Scan [...] Date/Time Associated Diagnosis Comments DIFFERENTIAL, AUTOMATED STAT 04/19/2023 10:59 AM EST 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) CBC STAT 04/19/2023 10:59 AM EST 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) CBC STAT 04/19/2023 10:59 AM EST 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) documented in this encounter Results * (ABNORMAL) DIFFERENTIAL, AUTOMATED (04/19/2023 10:59 AM EST) WBC 6.65 4.00 - 10.80 K/uL 04/19/2023 11:11 AM EST [facility] 56-02 Neutrophils % 27.6(L) 40.0 - 75.0 % 04/19/2023 11:11 AM EST [facility] 56-02 Lymphocytes % 53.4(H) 18.0 - 42.0 % 04/19/2023 11:11 AM EST [facility] 56-02 Monocytes % 15.8(H) 1.0 - 11.0 % 04/19/2023 11:11 AM [facility] 56- Eosinophils % 2.3 0.0 - 6.0 % 04/19/2023 11:11 AM [facility] 56-02 Basophils % 0.9 0.0 - 2.0 % 04/19/2023 11:11 AM [facility] 56- Absolute Neutrophils 1.84 1.80 - 7.70 K/uL 04/19/2023 11:11 AM [facility] 56-02 Absolute Lymphocytes 3.55 1.00 - 4.80 K/ul 04/19/2023 11:11 AM [facility] 56- Absolute Monocytes 1.05 0.00 - 1.10 K/uL 04/19/2023 11:11 AM [facility] 56- Absolute Eosinophils 0.15 0.00 - 0.70 K/uL 04/19/2023 11:11 AM [facility] 56- Absolute Basophils 0.06 0.00 - 0.20 K/uL 04/19/2023 11:11 AM [facility] 56 Blood Venous blood specimen / Unknown Venipuncture / Unknown 04/19/2023 10:59 AM EST 04/19/2023 10:59 AM EST Aguilar Lizarraga MD LAB BLOOD ORDERABLES [facility] 56- [address] [place] [address] * CBC (04/19/2023 10:59 AM EST) WBC 6.65 4.00 - 10.80 K/uL 04/19/2023 11:11 AM [facility] 56- RBC 4.40 3.85 - 5.15 M/uL 04/19/2023 11:11 AM [facility] 56- HGB 12.7 12.0 - 15.3 g/dL 04/19/2023 11:11 AM [facility] 56- HCT 40.5 36.0 - 45.2 % 04/19/2023 11:11 AM [facility] 56- MCV 92.0 81.5 - 97.5 fL 04/19/2023 11:11 AM EST [facility] 56 MCH 28.9 27.0 - 34.0 pg 04/19/2023 11:[address] MCHC 31.4 32.0 - 36.0 g/dL 04/19/2023 11:11 AM EST [facility] 56 RDW 15.5 11.5 - 15.5 % 04/19/2023 11:11 AM [facility] 56 PLT 145 140 - 400 K/uL 04/19/2023 11:11 AM [facility] 56 MPV 12.4 6.6 - 11.1 fL 04/19/2023 11:11 AM [facility] 56 Blood Venous blood specimen / Unknown Venipuncture / Unknown 04/19/2023 10:59 AM EST 04/19/2023 10:59 AM EST Aguilar Lizarraga MD LAB BLOOD ORDERABLES Performing Organization Address City/State/[facility] Co de Phone Number [facility] [address] [place] [address] documented in this encounter Visit Diagnoses Diagnosis [...] and were consensually agreed upon. Care Teams Manager It Training Relationship Specialty Start Date End Date Nichole Lizarraga MD 200 [place] [address] PCP - General Internal Medicine 03/10/12 documented as of this encounter
--- OUTSIDE RECORDS SUMMARY | 2023-06-30 22:53 | External Medical Summary | Summary of Care ---
Author Name Unknown Organization [facility] Address [address] [place] [address] Phone [phone] Care Team Providers Care Business Integration Analyst Name Role Phone Nichole Lizarraga MD Primary Care Provider + Reason for Visit * Reason Comments Outpatient Testing Encounter Details Date Type Department Care Team (Late st Contact Info) Description 04/25/2023 2:40 PM EST Laboratory Outpatient Laboratory, [place] [address] [place] [address] [place], Lab B1a [address] [place] [address] Malignant neoplasm of dome of [...] mRNA, LNP-s, No Pre serve, 2-Dose Series ([employer]) 01/05/2021,05/07/2020,04/16/2020 COVID-19, LNP-s, No Preserve , Jasbir-sucrose, [...] encounter Miscellaneous Notes * Addendum Note - Mary Mancilla TECH - 04/25/2023 4:32 PM EST Addended by: MARY MANCILLA on: 04/25/2023 04:32 PM Modules accepted: Orders documented in this encounter Plan of Treatment Upcoming Encounters Date Type Department Care Team (Latest Contact Info) Description 04/30/2023 8:15 AM EDT Telemedicine Urology, [place] [address] [place] [address] Saul Vargas MD [address] [place] [address] 05/01/2023 11:20 AM EDT Office Visit General Internal Medicine, [facility] [address] [place], [place] [phone] Laci Dye MD [address] [place] [address] 05/08/2023 10:19 AM EDT Hospital Encounter [facility], OPERATING ROOM [facility] [address] [place], [place] [phone] Saul Vargas MD [address] [place], [place] [phone] 05/08/2023 10:19 AM EDT - 05/08/2023 6:05 PM EDT Surgery [place] [facility], [facility]PER[facility]OM [facility] [address] [place] [address] Saul Vargas MD [address] [place] [address] CYSTECTOMY COMPLETE WITH URETEROILEAL CONDUIT WITH BILATERAL PELVIC LYMPHADENECTOMY 06/10/2023 10:30 AM EDT Office Visit Urology, [facility] 132 [facility] [place] [address] Chris Royal MD 27 [facility] [address] [place] [address] 06/11/2023 1:45 PM EDT Office Visit Urology, [place] [address] [place] [address] Saul Vargas MD [address] [place] [address] 06/24/2023 10:40 AM EDT Office Visit Nephrology, [facility] [place], [place] [address] Demetrius Sherman MD 200 [facility] [place] [address] 07/25/2023 11:15 AM EDT Office Visit Hematology/Oncolog y [facility] [address] [place], [place] [phone] Aguilar Lizarraga MD 200 [facility] [place], [place] [address] 11/12/2023 9:20 AM EDT Office Visit General Internal Medicine [facility] [address] [place], [place] [address] Nichole Lizarraga MD 200 [facility] [place] [address] Pending Results Name Type Priority Associated Diagnoses Date /Time EXTRA TUBES Lab Routine 04/25/2023 4: 05 PM EST EXTRA URINE MARBLE TOP Lab Routine 4:05 PM EST Scheduled Procedures Name Priority Associated [...] 03/13/2023 03/13/2022, 10/20 CKD PHOS USE SMARTSET 61328 03/13/2023 03/13/2022, 0 11/09/2021 Cologuard 06/09/2023 06/08/2020, 10/25/2016 Colorectal Cancer Screening 06/09/2023 Mammogram 10/12/2023 10/11/2022, 05/0 04/2021, 01/18/2020, Additional history exists GFR 10/20/2023 04/19/2023, 03/22, 04/05/2023, Additional history exists Depression Screening 11/07/2023 11/06/2022 CKD HGB USE SMARTSET 97445 04/18/202404/18, 04/19/2023, 04/12/2023, Additional history exists DXA [...] Procedure Name Priority Date/Time Associated Diagnosis Comments TYPE AND SCREEN Routine 04/25/2023 2:31 PM EST 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) Pre-op testing documented in this encounter Results * TYPE AND SCREEN (04/25/2023 2:31 PM EST) ABO B 04/25/2023 3:40 PM EST [facility] Rh Positive 04/25/2023 3:40 PM EST [facility] Red Blood Cell Antibody Screen Negative 04/25/2023 3:40 PM EST [facility] Specimen Expiration Date 05/11/2023 23:59 04/25/2023 3:40 PM EST [facility] Blood Venous blood specimen / Unknown Venipuncture / Unknown 04/25/2023 2:31 PM EST 04/25/2023 2:39 PM EST Kin Joseph PA-C LAB BLOOD BANK TEST ORDERABLES [facility] [address] [place] [address] documented in this encounter Visit Diagnoses Diagnosis [...] were consensually agreed upon. Care Teams Business Integration Analyst Relationship Specialty Start Date End Date Nichole Lizarraga MD 200 [place] [address] PCP - General Internal Medicine 03/10/12 documented as of this encounter
--- OUTSIDE RECORDS SUMMARY | 2023-06-30 22:53 | External Medical Summary ---
Author Name Unknown Address Unknown Organization K09:[facility] [place] [address] Laboratory Report Ordering Provider Test Date Status KEN RAY 04/19/2023 10:59:56 Final Observation Date Value Abnormality Reference (Units ) Status Magnesium 04/19/2023 10:59:56 2.2 1.5-2.6 (m g/dL) Final Performing Location [facility] [place] [address]
--- OUTSIDE RECORDS SUMMARY | 2023-06-30 22:53 | External Medical Summary | Summary of Care ---
Author Name Unknown Organization [facility] Address [address] [facility] [place] [address] Phone [phone] Care Team Providers Care Jet Mechanic Name Role Phone Nichole Lizarraga MD Primary Care Provider + Encounter Details Date Type Department Care Team (Late st Contact Info) Description 04/15/2023 Telephone Hematology/Oncology [facility] [place] [address] [place] [phone] Aguilar Lizarraga MD [address] [place] [address] Allergies Active Allergy Reactions Criticality Noted Date Comments Penicillins Edema airway,Rash High 03/10/2012 Last dose age 14 Pollen 01/17/2021 Ragweed 11/05/2022 documented as of this encounter (statuses as of 04/18/2023) Medications Medication Sig Dispensed Refills Start Date [...] as of this encounter (statuses as of 04/18/2023) Active Problems Problem Noted Date Diagnosed Date [...] as of this encounter (statuses as of 04/18/2023) Resolved Problems Problem Noted Date Diagnosed Date Resolved Date Chronic kidney disease, stage 3a 05/29/2021 05/02/2022 Overview: Per CKD protocol Fever 09/13/2015 10/21/2017 Kidney stone on left side Inguinal hernia 10/21/2017 Overview: Surgical repair Neutropenia 10/21/2017 documented as of this encounter (statuses as of 04/18/2023) Immunizations Name Administration Dates Next Due COVID-19 mRNA, LNP-s, No Pre serve, 2-Dose Series ([employer]) 01/05/2021,05/07/2020,04/16/2020 COVID-19, LNP-s, No Preserve , Jasbir-sucrose, Ages 12+ ([employer]) 09/06/2021 Covid-19, Mrna, Lnp-s, Pf, B ivalent, 30 Mcg, IM, 12 yrs and above ([employer]) 01/31/2022 PPD 02/19/2017 Pneumococcal Conjugate Vacc, 13 [...] Telephone Encounter - Josh Escalera RN - 04/15/2023 10:04 AM EST MyG sent. * Telephone Encounter - Josh Escalera RN - 04/15/2023 10:03 AM EST ----- Message from Aguilar Lizarraga MD sent at 04/12/2023 4:14 PM EST ----- Blood workup done on 04/12/2023: -WBC 4600, H&H of 12.7/39.7, Platelet count of 478989 -ANC 720. -BUN/Creat: 14/1.2, normal LFT. Currently she is using G-CSF 4 days a week, I would like to continue that. She is going for cystectomy for the bladder cancer on 05/08/2023. documented in this encounter Plan of Treatment Upcoming Encounters Date Type Department Care Team (Latest Contact Info) Description 04/19/2023 11:00 AM EST Laboratory Laboratory [place] [address] [place] [phone] Cory Delgado [address] [place] [address] 04/25/2023 11:30 AM EST Office Visit Urology, [address] [place] [address] Kin Joseph PA-C [address] [place] [address] 04/25/2023 12:30 PM EST Nurse Only General Surgery, [place] [address] [place] [address] A6, Wound Ostomy Nurse [address] [place] [address] 04/25/2023 1:30 PM EST Office Visit General Internal Medicine, [facility] [address] [place] [address] Yumiko Soriano MD [address] [place] [address] 04/30/2023 8:15 AM EDT Telemedicine Urology, [place] [address] [place] [address] Saul Vargas MD [address] [place] [address] 05/08/2023 10:19 AM EDT Hospital Encounter OR [facility], OPERATING ROOM [facility], [facility] [address] [place] [address] Saul Vargas MD [address] [place] [address] 05/08/2023 10:19 AM EDT - 05/08/2023 6:05 PM EDT Surgery OR [facility], OPERATING ROOM [facility], [facility] [address] [place] [address] Saul Vargas MD [address] [place] [address] CYSTECTOMY COMPLETE WITH URETEROILEAL CONDUIT WITH BILATERAL PELVIC LYMPHADENECTOMY 06/10/2023 10:30 AM EDT Office Visit Urology, [address] [place] [address] Chris Royal MD 27 [facility] [place] [address] [place] [address] 06/11/2023 1:45 PM EDT Office Visit Urology, [place] [address] [place] [address] Saul Vargas MD [address] [place] [address] 06/24/2023 10:40 AM EDT Office Visit Nephrology, [facility] 200 [facility] [place] [address] Demetrius Sherman MD 200 [facility] [place] [address] 07/25/2023 11:15 AM EDT Office Visit Hematology/Oncolog y [facility] [address] [place] [phone] Aguilar Lizarraga MD 200 [facility] [place] [address] 11/12/2023 9:20 AM EDT Office Visit General Internal Medicine [facility] 200 [facility] [place] [address] Nichole Lizarraga MD 200 [facility] [place] [address] Scheduled Procedures Name Priority Associated Diagnoses Date/Ti [...] 03/13/2023 03/13/2022, 10/20 CKD PHOS USE SMARTSET 49477 03/13/2023 03/13/2022, 0 11/09/2021 Cologuard 06/09/2023 06/08/2020, 10/25/2016 Colorectal Cancer Screening 06/09/2023 GFR 10/11/2023 04/12/2023, 03/21, 03/25/2023, Additional history exists Mammogram 10/12/2023 10/11/2022, 05/0 04/2021, 01/18/2020, Additional history exists Depression Screening 11/07/2023 11/06/2022 CKD HGB USE SMARTSET 90236 04/12/202404/12, 04/12/2023, 04/05/2023, Additional history exists DXA Scan 10/02/2024 10/02/2022, [...] and were consensually agreed upon. Care Teams Jet Mechanic Relationship Specialty Start Date End Date Nichole Lizarraga MD [address] [place] [id number] PCP - General Internal Medicine 03/10/12 documented as of this encounter
--- OUTSIDE RECORDS SUMMARY | 2023-06-30 22:53 | External Medical Summary | Summary of Care ---
Author Name Unknown Organization [facility] Address [address] [place] [address] Phone [phone] Care Team Providers Care Forensic Medical Examiner Name Role Phone Nichole Lizarraga MD Primary Care Provider + Reason for Visit * Reason Onset Date Comments Test Results Lab 04/22/2023 Encounter Details Date Type Department Care Team (Late st Contact Info) Description 04/22/2023 Telephone Hematology/Oncology Treatment, [place] [address] [place] [phone] Aguilar Lizarraga MD [address] [place] [address] Test Results Lab Allergies Active Allergy Reactions Criticality Noted Date Comments Penicillins Edema airway,Rash High 03/10/2012 Last dose age 14 Pollen 01/17/2021 Ragweed 11/05/2022 documented as of this encounter (statuses as of 04/22/2023) Medications Medication Sig Dispensed Refills Start Date [...] as of this encounter (statuses as of 04/22/2023) Active Problems Problem Noted Date Diagnosed Date [...] as of this encounter (statuses as of 04/22/2023) Resolved Problems Problem Noted Date Diagnosed Date Resolved Date Chronic kidney disease, stage 3a 05/29/2021 05/02/2022 Overview: Per CKD protocol Fever 09/13/2015 10/21/2017 Kidney stone on left side Inguinal hernia 10/21/2017 Overview: Surgical repair Neutropenia 10/21/2017 documented as of this encounter (statuses as of 04/22/2023) Immunizations Name Administration Dates Next Due COVID-19 mRNA, LNP-s, No Pre serve, 2-Dose Series ([employer]) 01/05/2021,05/07/2020,04/16/2020 COVID-19, LNP-s, No Preserve , Jasbir-sucrose, Ages 12+ ([employer]) 09/06/2021 Covid-19, Mrna, Lnp-s, Pf, B ivalent, [...] Telephone Encounter - Dee Brush RN - 04/22/2023 10:43 AM EST ----- Message from Aguilar Lizarraga MD sent at 04/21/2023 7:04 PM EST ----- Blood workup done on 04/19/2023: -WBC 6600, now ANC improved around 1800. -H&H of 12.7/40.5, Platelet count of 136630. She will continue G-CSF 4 days in a week. documented in this encounter Plan of Treatment Upcoming Encounters Date Type Department Care Team (Latest Contact Info) Description 04/25/2023 11:30 AM EST Office Visit Urology, [place] [address] [place] [address] Kin Joseph PA-C [address] [place] [address] 04/25/2023 12:30 PM EST Nurse Only General Surgery, [place] [address] [place] [address] A6, Wound Ostomy Nurse [address] [place] [address] 04/25/2023 1:30 PM EST Office Visit General Internal Medicine, [facility] [address] [place] [address] Yumiko Soriano MD [address] [place] [address] 04/30/2023 8:15 AM EDT Telemedicine Urology, [place] [address] [place] [address] Saul Vargas MD [address] [place] [address] 05/08/2023 10:19 AM EDT Hospital Encounter [place] [facility] [place] [place] [address] [place] [address] Saul Vargas MD [address] [place] [address] 05/08/2023 10:19 AM EDT - 05/08/2023 6:05 PM EDT Surgery OR [facility] OPER[facility]OM [facility] ARDY [place] [address] [place] [address] Saul Vargas MD [address] [place] [address] CYSTECTOMY COMPLETE WITH URETEROILEAL CONDUIT WITH BILATERAL PELVIC LYMPHADENECTOMY 06/10/2023 10:30 AM EDT Office Visit Urology, [facility] [address] [facility] [place] [address] Chris Royal MD [address] [address] 06/11/2023 1:45 PM EDT Office Visit Urology, [place] [address] [place] [address] Saul Vargas MD [address] [place] [address] 06/24/2023 10:40 AM EDT Office Visit Nephrology, [facility] [address] [facility] [place] [address] Demetrius Sherman MD 200 [facility] [place] [address] 07/25/2023 11:15 AM EDT Office Visit Hematology/Oncolog y [facility] [place] [address] [facility] [address] [place], [place] [phone] Aguilar Lizarraga MD 200 [facility] [place], [place] [address] 11/12/2023 9:20 AM EDT Office Visit General Internal Medicine [facility] [place] [address] [facility] [address] [place], [place] [address] Nichole Lizarraga MD 200 [facility] [place] [address] Scheduled Procedures Name Priority Associated Diagnoses Date/Ti [...] 03/13/2023 03/13/2022, 10/20 CKD PHOS USE SMARTSET 38853 03/13/2023 03/13/2022, 0 11/09/2021 Cologuard 06/09/2023 06/08/2020, 10/25/2016 Colorectal Cancer Screening 06/09/2023 Mammogram 10/12/2023 10/11/2022, 05/0 04/2021, 01/18/2020, Additional history exists GFR 10/20/2023 04/19/2023, 03/22, 04/05/2023, Additional history exists Depression Screening 11/07/2023 11/06/2022 CKD HGB USE SMARTSET 99088 04/18/202404/18, 04/19/2023, 04/12/2023, Additional history exists DXA [...] and were consensually agreed upon. Care Teams Forensic Medical Examiner Relationship Specialty Start Date End Date Nichole Lizarraga MD [address] [facility], [place] [phone] PCP - General Internal Medicine 03/10/12 documented as of this encounter
--- OUTSIDE RECORDS SUMMARY | 2023-06-30 22:53 | External Medical Summary | Summary of Care ---
Author Name Unknown Organization [facility] Address [address] [place] [address] Phone [phone] Care Team Providers Care Former Hand Name Role Phone Nichole Lizarraga MD Primary Care Provider + Reason for Visit * Reason Comments H&P Surgery Encounter Details Date Type Department Care Team (Late st Contact Info) Description 04/25/2023 11:30 AM EST Office Visit Urology, [place] [address] [place], [place] [id number] Kin Joseph PA-C [address] [place] [address] Malignant neoplasm of dome of [...] mRNA, LNP-s, No Pre serve, 2-Dose Series ([employer]) 01/05/2021,05/07/2020,04/16/2020 COVID-19, LNP-s, No Preserve , Jasbir-sucrose, [...] Time: 12:07 PM PCP: Nichole Lizarraga MD [address] [place] [address] [place] [address] C/c Pre-operative History and Physical HPI: This [...] f/c, n/v/c/d. The patient denies h/o TIA/CVA, CO, sleep apnea, DVT/PE, or DM. PAST MEDICAL [...] performed by Chris Royal MD at OR [facility] CYSTOSCOPY/TREAT MINOR LESION(S) N/A 06/05/2021 CYSTOURETHROSCOPY WITH FULGURATION MINOR BLADDER TUMOR performed by Chris Royal MD at OR [facility] CYSTOSCOPY/TREAT SML BLADDER TUMOR N/A 02/04/2023 CYSTOURETHROSCOPY WITH FULGURATION SMALL BLADDER TUMOR performed by Chris Royal MD at [facility] DENTAL SURGERY PROCEDURE NEC INCISION OF [place], PLANNED Left 02/04/2017 TRACHEOSTOMY PLANNED performed by Nick Singh DO at [facility] INFORMATION 02/04/2017 never had a trach INFORMATION 1989 kidney stone removal LAPARO REMOVE K/URETER Left 02/01/2021 LAPAROSCOPIC NEPHRECTOMY TOTAL URETERECTOMY performed by Chris Royal MD at [facility] LARYNGOSCOPY, VOCAL CORD EXCISION/STRIPPING Left 02/04/2017 LARYNGOSCOPY DIRECT STRIPPING VOCAL CORD WITH MICROSCOPE performed by Nick Singh DO at OR [facility] REPAIR INITIAL INGUINAL HERNIA REDUCIBLE [...] Examination 2. 73 year old female with [id number] high-grade urothelial carcinoma of the bladder with [...] 04/25/2023 Kin Joseph PA-C Department of Urology [facility] 04/25/2023 12:07 PM documented in this encounter Plan of Treatment Upcoming Encounters Date Type Department Care Team (Latest Contact Info) Description 04/30/2023 8:15 AM EDT Telemedicine Urology, [place] [address] [place] [address] Saul Vargas MD [address] [place] [address] 05/01/2023 11:20 AM EDT Office Visit General Internal Medicine, [facility] [address] [place] [address] Laci Dye MD [address] [place] [address] 05/08/2023 10:19 AM EDT Hospital Encounter [place] [facility]PER[facility] [address] [place] [address] Saul aVrgas MD [address] [place] [address] 05/08/2023 10:19 AM EDT - 05/08/2023 6:05 PM EDT Surgery OR [facility] [address] [place] [address] Saul Vargas MD [address] [place] [address] CYSTECTOMY COMPLETE WITH URETEROILEAL CONDUIT WITH BILATERAL PELVIC LYMPHADENECTOMY 06/10/2023 10:30 AM EDT Office Visit Urology, [facility] [address] [facility] [place] [address] Chris Royal MD [address] [address] [place] [address] 06/11/2023 1:45 PM EDT Office Visit Urology, [place] [address] [place] [address] Saul Vargas MD [address] [place], [place] [phone] 06/24/2023 10:40 AM EDT Office Visit Nephrology, [facility] [address] [facility] [place] [address] Demetrius Sherman MD [address] [facility] [place], [place] [address] 07/25/2023 11:15 AM EDT Office Visit Hematology/Oncolog y [facility] [address] [facility] [place], [place] [phone] Aguilar Lizarraga MD [address] [facility] [place], [place] [address] 11/12/2023 9:20 AM EDT Office Visit General Internal Medicine [facility] [address] [facility] [place], [place] [address] Nichole Lizarraga MD [address] [facility] [place] [address] Scheduled Orders Name Type Priority Associated Diagnoses [...] 03/13/2023 03/13/2022, 10/20 CKD PHOS USE SMARTSET 53767 03/13/2023 03/13/2022, 0 11/09/2021 Cologuard 06/09/2023 06/08/2020, 10/25/2016 Colorectal Cancer Screening 06/09/2023 Mammogram 10/12/2023 10/11/2022, 05/0 04/2021, 01/18/2020, Additional history exists GFR 10/20/2023 04/19/2023, 03/22, 04/05/2023, Additional history exists Depression Screening 11/07/2023 11/06/2022 CKD HGB USE SMARTSET 65863 04/18/202404/18, 04/19/2023, 04/12/2023, Additional history exists DXA [...] ABO B 04/25/2023 3:40 PM EST LABORATORY [facility] BLOOD BANK Rh Positive 04/25/2023 3:40 PM EST LABORATORY [facility] Red Blood Cell Antibody Screen Negative 04/25/2023 3:40 PM EST LAB[facility]ATORY [facility] Specimen Expiration Date 05/11/2023 23:59 04/25/2023 3:40 PM EST LAB[facility]ORY [facility] Blood Venous blood specimen / Unknown Venipuncture / Unknown 04/25/2023 2:31 PM EST 04/25/2023 2:39 PM EST Kin Joseph PA-C LAB BLOOD BANK TEST ORDERABLES LAB[facility]ATORY [facility] [address] [place] [address] documented in this encounter Visit [...] and were consensually agreed upon. Care Teams Former Hand Relationship Specialty Start Date End Date Nichole Lizarraga MD [address] [facility] [place] [address] PCP - General Internal Medicine 03/10/12 documented as of this encounter
--- OUTSIDE RECORDS SUMMARY | 2023-06-30 22:54 | External Medical Summary ---
Author Name Unknown Address Unknown Organization K09:[facility] [address] Laboratory Report Ordering Provider Test Date Status FLORKEN 04/12/2023 10:33:07 Final Observation Date Value Abnormality Reference (Units ) Status Magnesium 04/12/2023 10:33:07 2.2 1.5-2.6 (m g/dL) Final Performing Location [facility] [address]
--- OUTSIDE RECORDS SUMMARY | 2023-06-30 22:54 | External Medical Summary | Summary of Care ---
Author Name Unknown Organization [facility] Address [address] [facility] [place] [address] Phone [phone] Care Team Providers Care Sheet Taker Name Role Phone Nichole Lizarraga MD Primary Care Provider + Reason for Visit * Reason Comments Procedure BONE MARROW BIOPSY Encounter Details Date Type Department Care Team (Late st Contact Info) Description 03/26/2023 10:15 AM EST Office Visit Hematology/Oncology [facility] 200 [facility] [place] [address] Aguilar Lizarraga MD 200 [place] [address] Neutropenia, unspecified type (HCC) [D70.9]*; Large granular lymphocytic leukemia (HCC) Allergies Active Allergy Reactions Criticality Noted Date Comments Penicillins Edema airway,Rash High 03/10/2012 Last dose age 14 Pollen 01/17/2021 Ragweed 11/05/2022 documented as of this encounter (statuses as of 03/27/2023) Medications Medication Sig Dispensed Refills Start Date [...] A DAY. 90 mL 3 09/10/2022 Active Zarxio 300 MCG/0.5ML Injection Solution Prefilled Syringe (Filgrastim-sndz)Ind ications:Chronic neutropenia (HCC),Large granular lymphocytic leukemia (HCC) Inject 300 mcg (1 syringe) under the skin for 4 days a week 8 mL 5 12/04/2022 Active Sulfamethoxazole-Tri methoprim 800-160 MG Oral Tablet (Bactrim DS) Take 1 Tablet by mouth in the morning and 1 Tablet before bedtime. 6 Tablet 0 02/04/2023 Active Phenazopyridine HCl 200 MG Oral Tablet (Pyridium) Take 1 Tablet by mouth 3 times a day as needed for Other (bladder spasms). After meals. 15 Tablet 0 02/04/2023 Active Ondansetron HCl 8 MG Oral Tablet [...] as of this encounter (statuses as of 03/27/2023) Active Problems Problem Noted Date Diagnosed Date [...] as of this encounter (statuses as of 03/27/2023) Resolved Problems Problem Noted Date Diagnosed Date Resolved Date Chronic kidney disease, stage 3a 05/29/2021 05/02/2022 Overview: Per CKD protocol Fever 09/13/2015 10/21/2017 Kidney stone on left side Inguinal hernia 10/21/2017 Overview: Surgical repair Neutropenia 10/21/2017 documented as of this encounter (statuses as of 03/27/2023) Immunizations Name Administration Dates Next Due COVID-19 mRNA, LNP-s, No Pre serve, 2-Dose Series ([employer]) 01/05/2021,05/07/2020,04/16/2020 COVID-19, LNP-s, No Preserve , Jasbir-sucrose, Ages 12+ ([employer]) 09/06/2021 Covid-19, Mrna, Lnp-s, Pf, B ivalent, 30 Mcg, IM, 12 yrs and above ([employer]) 01/31/2022 PPD 02/19/2017 Pneumococcal Conjugate Vacc, [...] Sign Reading Time Taken Comments Blood Pressure 122/80 03/26/2023 11:00 AM EST Pulse 79 03/26/2023 11:00 AM EST Temperature 36.2 C (97.2 F) 03/26/2023 11:[address] Respiratory Rate 16 03/26/2023 11:00 AM EST Oxygen Saturation 98% 03/26/2023 11:00 AM EST Inhaled Oxygen Concentration - - Weight 55.5 kg (122 lb 4.8 oz) 03/26/2023 11:00 AM EST Height 167 cm (5' 5.75") 03/26/2023 11:00 AM EST Body Mass Index 19.89 03/26/2023 11:00 AM EST documented in this encounter Patient Instructions * Patient Instructions* Aguilar Lizarraga MD - 03/26/2023 11:00 AM EST Patient Instructions for Bone Marrow Aspiration/Biopsy A pressure dressing was applied to your bone marrow aspiration/biopsy site. This should be checked when you return home to look for any bleeding. If the dressing is wet with blood apply pressure to the site for ten minutes and then replace the dressing with a new bandage. If the bleeding doesn't stop, then call the doctor's office immediately or go to the local emergency room. If the dressing is dry when you check it, please remove the dressing prior to going to bed. You may want to cover the site with a bandaid for one or two days until the wound is healed. Should you notice any redness or warmth around the wound, please notify the doctor's office immediately. You may use Tylenol as directed on the bottle for any discomfort that occurs after you return home. Aguilar Lizarraga MD documented in this encounter Progress Notes * Aguilar Lizarraga MD - 03/26/2023 10:57 AM EST PROCEDURE: Bone Marrow Biopsy and Aspiration INDICATION: Persistent neutropenia, case of LGL leukemia, case of bladder cancer, neutropenia did not respond well with G-CSF therapy INFORMED CONSENT: Obtain and in chart. Risks, benefits, and complications discussed with patient prior to procedure. SITE OF BONE MARROW: Right posterior superior iliac crest. ANESTHESIA: 1% Lidocaine - Local SUMMARY OF PROCEDURE: Patient place in left lateral decubitus position and posterior superior iliacspine palpated and marked. Area clean and draped in the usual fashion using sterile technique with Betadine. The skin, superficial and deep tissues, and periosteum anesthetized with 1% lidocaine in the usual fashion. Small skin incision made and bone marrow needle placed through this opening. Bone marrow needle advanced into bone with minimal difficulty. Bone marrow aspirate obtained without difficulty. Bone marrow needle advanced further and biopsy taken in the usual fashion without difficulty. Lab assisted and spicules present with biopsy specimen. Direct pressure applied to incisional sitewith good hemostasis and a 4 x [address] as a pressure dressing. Patient tolerated the procedure well and will remain in the Heme/Onc Clinic for approx 30 minutes. SPECIMENS: Bone marrow aspiration and bone marrow biopsy sent to the laboratory. Bone marrow sent for flow cytometry cytogenetics, FISH. ESTIMATED BLOOD LOSS: Less than approx 2 milliliters. COMPLICATIONS: NONE DISPOSITION: As above, patient to remain in Heme/Onc Clinic for approx 30 minutes prior to going home. May remove pressure dressing tomorrow AM. Will inform her regarding the bone marrow findings. Dr. Aguilar Lizarraga Hem/Onc documented in this encounter Miscellaneous Notes * Addendum Note - Ariane Dorantes MLT - 03/27/2023 9:04 AM ESTAddended by: ARIANE DORANTES on: 03/27/2023 09:04 AM Modules accepted: Orders documented in this encounter Plan of Treatment Upcoming Encounters Date Type Department Care Team (Late st Contact Info) Description 06/10/2023 10:30 AM EDT Office Visit Urology, [facility] 132 [facility] [place] [address] Chris Royal MD [address] [place] [id number] 06/24/2023 10:40 AM EDT Office Visit Nephrology, [facility] [address] [place] [address] Demetrius Sherman MD 200 [facility] [place] [address] 06/25/2023 11:30 AM EDT Office Visit Urology, [place] [address] [place] [address] Saul Vargas MD [address] [place] [address] 07/25/2023 11:15 AM EDT Office Visit Hematology/Oncology [facility] [address] [place] [address] Aguilar Lizarraga MD 200 [facility] [place] [address] 11/12/2023 9:20 AM EDT Office Visit General Internal Medicine [facility] 200 [facility] [place], [place] [address] Nichole Lizarraga MD 200 [facility] [place], [place] [address] Pending Results Name Type Priority Associated Diagnoses Date /Time BONE MARROW PANEL Lab Routine Neutropenia, unspecified type (HCC) [D70.9] Large granular lymphocytic leukemia (HCC) 03/26/2023 10:45 AM EST SURGICAL PATHOLOGY Pathology Routine Neutropenia, unspecified type (HCC) [D70.9] Large granular lymphocytic leukemia (HCC) 03/26/2023 10:45 AM EST BONE MARROW ASPIRATE LAVENDER (MOLECULAR) - 2 TUB* Lab Routine Neutropenia, unspecified type (HCC) [D70.9] Large granular lymphocytic leukemia (HCC) 03/26/2023 10:45 AM EST BONE MARROW ASPIRATE GREEN (FLOW) Lab Routine Neutropenia, unspecified type (HCC) [D70.9] Large granular lymphocytic leukemia (HCC) 03/26/2023 10:45 AM EST BONE MARROW ASPIRATE GREEN (REFERRED) Lab Routine Neutropenia, unspecified type (HCC) [D70.9] Large granular lymphocytic leukemia (HCC) 03/26/2023 10:45 AM EST BONE MARROW WITH REFLEX TESTING Pathology Routine Neutropenia, unspecified type (HCC) [D70.9] Large granular lymphocytic leukemia (HCC) 03/26/2023 11:26 AM EST COMPREHENSIVE BONE MARROW CONSULTATION Pathology Routine Neutropenia, unspecified type (HCC) [D70.9] Large granular lymphocytic leukemia (HCC) 03/26/2023 11:26 AM EST Scheduled Orders Name Type Priority Associated Diagnoses Orde r Schedule DIAGNOSTIC BONE MARROW; BIOPSY(IES) AND ASPIRATION(S) Procedures Routine Neutropenia, unspecified type (HCC) [D70.9] Large granular lymphocytic leukemia (HCC) Ordered: 03/26/2023 SERUM IMMUNOFIXATION Lab Routine Neutropenia, unspecified type (HCC) [D70.9] Large granular lymphocytic leukemia (HCC) Ordered: 03/27/2023 Health Maintenance Due Date Last Done Comments Zoster Vaccines (1 of 2) 01/23/1971 Colonoscopy 01/23/1997 Fecal Occult Blood Test 01/23/1997 Sigmoidoscopy 01/23/1997 DTaP,Tdap,and Td Vaccines (2 - Td or Tdap) 09/02/2022 09/02/2012 Albumin/Creatinine Ratio 03/13/2023 03/13/2022, 10/20 CKD PHOS USE SMARTSET 00998 03/13/2023 03/13/2022, 0 11/09/2021 Cologuard 06/09/2023 06/08/2020, 10/25/2016 Colorectal Cancer Screening 06/09/2023 GFR 09/23/2023 03/25/2023, 02/2023, 03/01/2023, Additional history exists Mammogram 10/12/2023 10/11/2022, 05/0 04/2021, 01/18/2020, Additional history exists Depression Screening 11/07/2023 11/06/2022 CKD HGB USE SMARTSET 85324 03/26/202403/26, 03/26/2023, 03/25/2023, Additional history exists DXA Scan 10/02/2024 10/02/2022, [...] Priority Date/Time Associated Diagnosis Comments DIFFERENTIAL, AUTOMATED Routine 03/26/2023 11:04 AM EST Neutropenia, unspecified type (HCC) [D70.9] Large granular lymphocytic leukemia (HCC) CBC Routine 03/26/2023 11:04 AM EST Neutropenia, unspecified type (HCC) [D70.9] Large granular lymphocytic leukemia (HCC) CBC Routine 03/26/2023 11:04 AM EST Neutropenia, unspecified type (HCC) [D70.9] Large granular lymphocytic leukemia (HCC) DIFFERENTIAL, TECHNOLOGIST REVIEW Routine 03/26/2023 11:04 AM EST Neutropenia, unspecified type (HCC) [D70.9] Large granular lymphocytic leukemia (HCC) documented in this encounter Results * (ABNORMAL) DIFFERENTIAL, TECHNOLOGIST REVIEW (03/26/2023 11:04 AM EST) WBC 2.64(L) 4.00 - 10.80 K/uL 03/26/2023 10:28 PM EST [facility] Neutrophils % 9.0(L) 40.0 - 75.0 % 03/26/2023 10:28 PM EST [facility] Lymphocytes % 69.0(H) 18.0 - 42.0 % 03/26/2023 10:28 PM EST [facility] Monocytes % 16.0(H) 1.0 - 11.0 % 03/26/2023 10:28 PM EST [facility] Eosinophils % 4.0 0.0 - 6.0 % 03/26/2023 10:28 PM EST [facility] Basophils % 2.0 0.0 - 2.0 % 03/26/2023 10:28 PM EST [facility] Absolute Neutrophils 0.24(L) 1.80 - 7.70 K/uL 03/26/2023 10:28 PM EST [facility] Absolute Lymphocytes 1.82 1.00 - 4.80 K/uL 03/26/2023 10:28 PM EST [facility] Absolute Monocytes 0.42 0.00 - 1.10 K/uL 03/26/2023 10:28 PM EST [facility] Absolute Eosinophils 0.11 0.00 - 0.70 K/uL 03/26/2023 10:28 PM EST [facility] Absolute Basophils 0.05 0.00 - 0.20 K/uL 03/26/2023 10:28 PM EST [facility] Reactive Lymphocytes Present(A ) None Seen 03/26/2023 10:28 PM EST [facility] Blood Venous blood specimen / Unknown Venipuncture / Unknown 03/26/2023 11:04 AM EST 03/26/2023 11:05 AM EST Aguilar Lizarraga MD LAB BLOOD ORDERABLES Performing Organization Address [facility] de Phone Number [facility] [address] [place] [address] * DIFFERENTIAL, AUTOMATED (03/26/2023 11:04 AM EST) Blood Venous blood specimen / Unknown Venipuncture / Unknown 03/26/2023 11:04 AM EST 03/26/2023 11:05 AM EST Aguilar Lizarraga MD LAB BLOOD ORDERABLES Performing Organization Address [facility] de Phone Number [facility] [address] [place] [address] * (ABNORMAL) CBC (03/26/2023 11:04 AM EST) WBC 2.64(L) 4.00 - 10.80 K/uL 03/26/2023 9:09 PM EST [facility] RBC 4.10 3.85 - 5.15 M/uL 03/26/2023 9:09 PM EST [facility] HGB 12.1 12.0 - 15.3 g/dL 03/26/2023 9:09 PM EST [facility] HCT 38.3 36.0 - 45.2 % 03/26/2023 9:09 PM EST [facility] MCV 93.4 81.5 - 97.5 fL 03/26/2023 9:09 PM EST [facility] MCH 29.5 27.0 - 34.0 pg 03/26/2023 9:09 PM EST [facility] MCHC 31.6 32.0 - 36.0 g/dL 03/26/2023 9:09 PM EST [facility] RDW 13.9 11.5 - 15.5 % 03/26/2023 9:09 PM EST [facility] PLT 147 140 - 400 K/uL 03/26/2023 9:09 PM EST [facility] MPV 03/26/2023 9:09 PM EST [facility] Comment:No result - abnormal platelet distribution. 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 Care Teams Sheet Taker Relationship Specialty Start Date End Date Nichole Lizarraga MD 200 [facility] [place] [address] PCP - General Internal Medicine 03/10/12 documented as of this encounter
--- OUTSIDE RECORDS SUMMARY | 2023-06-30 22:54 | External Medical Summary | Summary of Care ---
Author Name Unknown Organization [facility] Address [address] [facility] [place] [address] Phone [phone] Care Team Providers Care Pupil Personnel Services Director Name Role Phone Nichole Lizarraga MD Primary Care Provider + Reason for Visit * Reason Comments Procedure BONE MARROW BIOPSY Encounter Details Date Type Department Care Team (Late st Contact Info) Description 03/26/2023 10:15 AM EST Office Visit Hematology/Oncology [facility] 200 [facility] [place] [address] gAuilar Lizarraga MD 200 [place] [address] Neutropenia, unspecified type (HCC) [D70.9]*; Large granular lymphocytic leukemia (HCC) Allergies Active Allergy Reactions Criticality Noted Date Comments Penicillins Edema airway,Rash High 03/10/2012 Last dose age 14 Pollen 01/17/2021 Ragweed 11/05/2022 documented as of this encounter (statuses as of 03/26/2023) Medications Medication Sig Dispensed Refills Start Date [...] as of this encounter (statuses as of 03/26/2023) Active Problems Problem Noted Date Diagnosed Date [...] as of this encounter (statuses as of 03/26/2023) Resolved Problems Problem Noted Date Diagnosed Date Resolved Date Chronic kidney disease, stage 3a 05/29/2021 05/02/2022 Overview: Per CKD protocol Fever 09/13/2015 10/21/2017 Kidney stone on left side Inguinal hernia 10/21/2017 Overview: Surgical repair Neutropenia 10/21/2017 documented as of this encounter (statuses as of 03/26/2023) Immunizations Name Administration Dates Next Due COVID-19 mRNA, LNP-s, No Pre serve, 2-Dose Series ([facility]) 01/05/2021,05/07/2020,04/16/2020 COVID-19, LNP-s, No Preserve , Jasbir-sucrose, Ages 12+ ([employer]) 09/06/2021 Covid-19, Mrna, Lnp-s, Pf, B ivalent, 30 Mcg, IM, 12 yrs and above ([employer]) 01/31/2022 PPD 02/19/2017 Pneumococcal Conjugate Vacc, 13 [...] AM EDT Office Visit Urology, [facility] 132 [facility] [place] [address] Chris Royal MD 27 [facility] [address] [place] [address] 06/24/2023 10:40 AM EDT Office Visit Nephrology, [facility] [place] [address] Demetrius Sherman MD 200 [facility] [place] [address] [address] 06/25/2023 11:30 AM EDT Office Visit Urology, [place] [address] [place], [place] [address] Saul Vargas MD [address] [place], [place] [address] 07/25/2023 11:15 AM EDT Office Visit Hematology/Oncology [facility] [place] [address] Aguilar Lizarraga MD 200 [facility] [place] [address] 11/12/2023 9:20 AM EDT Office Visit General Internal Medicine [facility] [place] [address] [place] [address] Nichole Lizarraga MD [address] [place] [address] Pending Results Name Type Priority Associated Diagnoses Date /Time BONE MARROW PANEL Lab Routine Neutropenia, unspecified type (HCC) [D70.9] Large granular lymphocytic leukemia (HCC) 03/26/2023 10:45 AM EST SURGICAL PATHOLOGY Pathology Routine Neutropenia, unspecified type (HCC) [D70.9] Large granular lymphocytic leukemia (HCC) 03/26/2023 10:45 AM EST CBC WITH WBC DIFFERENTIAL Lab Routine Neutropenia, unspecified type (HCC) [D70.9] Large granular lymphocytic leukemia (HCC) 03/26/2023 11:04 AM EST BONE MARROW ASPIRATE LAVENDER (MOLECULAR) [...] lymphocytic leukemia (HCC) 03/26/2023 11:26 AM EST CBC Lab Routine Neutropenia, unspecified type (HCC) [D70.9] Large granular lymphocytic leukemia (HCC) 03/26/2023 11:04 AM EST DIFFERENTIAL, AUTOMATED Lab Routine Neutropenia, unspecified type (HCC) [D70.9] Large granular lymphocytic leukemia (HCC) 03/26/2023 11:04 AM EST Scheduled Orders Name Type Priority Associated Diagnoses Orde r Schedule DIAGNOSTIC BONE MARROW; BIOPSY(IES) AND ASPIRATION(S) Procedures Routine Neutropenia, unspecified type (HCC) [D70.9] Large granular lymphocytic leukemia (HCC) Ordered: 03/26/2023 Health Maintenance Due Date Last Done Comments Zoster Vaccines (1 of 2) 01/23/1971 Colonoscopy 01/23/1997 Fecal Occult Blood Test 01/23/1997 Sigmoidoscopy 01/23/1997 DTaP,Tdap,and Td Vaccines (2 - Td or Tdap) 09/02/2022 09/02/2012 Albumin/Creatinine Ratio 03/13/2023 03/13/2022, 10/20 CKD PHOS USE SMARTSET 11640 03/13/2023 03/13/2022, 0 11/09/2021 Cologuard 06/09/2023 06/08/2020, 10/25/2016 Colorectal Cancer Screening 06/09/2023 GFR 09/23/2023 03/25/2023, 0202/2023, 03/01/2023, Additional history exists Mammogram 10/12/2023 10/11/2022, 0504/2021, 01/18/2020, Additional history exists Depression Screening 11/07/2023 11/06/2022 CKD HGB USE SMARTSET 47189 03/25/202403/25, 03/25/2023, 03/21/2023, Additional history exists DXA Scan 10/02/2024 10/02/2022, [...] as of this encounter Visit Diagnoses Diagnosis Neutropenia, unspecified [...] and were consensually agreed upon. Care Teams Pupil Personnel Services Director Relationship Specialty Start Date End Date Nichole Lizarraga MD [address] [place] [address] PCP - General Internal Medicine 03/10/12 documented as of this encounter
--- OUTSIDE RECORDS SUMMARY | 2023-06-30 22:54 | External Medical Summary ---
Author Name Unknown Address Unknown Organization [facility] [address] [place] [address] Laboratory Report Ordering Provider Test Date Status KEN RAY 04/05/2023 15:37:52 Final Observation Date Value Abnormality Reference (Units ) Status BUN 04/05/2023 15:37:52 12 6-20 (mg/dL) Final Creatinine 04/05/2023 15:37:52 1.3 Above high normal 0.5-1.0 (mg/dL) Final Glomerular filtration rate/1.73 sq M.predicted [Volume Rate/Area] in Serum, Plasma or Blood by Creatinine-based formula (CKD-EPI) 04/05/2023 15:37:52 43 Below low normal >=60 (mL/min) Final eGFR is calculated based on the CKD-EPI 2020 equation SODIUM 04/05/2023 15:37:52 138 135-146 (m mol/L) Final Potassium 04/05/2023 15:37:52 3.8 3.5-5.1 (m mol/L) Final Cl 04/05/2023 15:37:52 103 98-107 (mm ol/L) Final CO2 04/05/2023 15:37:52 27 22-32 (mmo l/L) Final Anion gap 04/05/2023 15:37:52 8 7-15 (mmol /L) Final Glucose 04/05/2023 15:37:52 92 70-120 (mg /dL) Final Albumin 04/05/2023 15:37:52 3.6 Below low normal 3.8 -5.0 (g/dL) Final AST (Aspartate aminotransferase) 04/05/2023 15:37:52 13 10-35 (U/L) Fin al Alk Phos 04/05/2023 15:37:52 72 35-130 (U/ L) Final Bilirubin, Total 04/05/2023 15:37:52 0.7 <=1 .2 (mg/dL) Final Calcium 04/05/2023 15:37:52 9.6 8.4-10.2 ( mg/dL) Final Protein 04/05/2023 15:37:52 7.1 6.0-8.3 (g /dL) Final ALT (Alanine aminotransferase) 04/05/2023 15:37:52 <5 Below low normal 10-35 (U/L) Final Performing Location [facility] [address] [place] [address]
--- OUTSIDE RECORDS SUMMARY | 2023-06-30 22:54 | External Medical Summary | Summary of Care ---
Author Name Unknown Organization [facility] Address [address] [facility] [place] [address] Phone [phone] Care Team Providers Care Chalk Machine Operator Name Role Phone Nichole Lizarraga MD Primary Care Provider + Reason for Visit * Reason Comments Procedure BONE MARROW BIOPSY Encounter Details Date Type Department Care Team (Late st Contact Info) Description 03/26/2023 10:15 AM EST Office Visit Hematology/Oncology [facility] 200 [facility] [place] [address] Aguilar Lizarraga MD 200 [place] [address] Neutropenia, unspecified type (HCC) [D70.9]*; Large granular [...] mRNA, LNP-s, No Pre serve, 2-Dose Series ([employer]) 01/05/2021,05/07/2020,04/16/2020 COVID-19, LNP-s, No Preserve , Jasbir-sucrose, Ages 12+ ([employer]) 09/06/2021 Covid-19, Mrna, Lnp-s, Pf, B ivalent, 30 Mcg, IM, 12 yrs and above ([employer]) 01/31/2022 PPD 02/19/2017 Pneumococcal Conjugate Vacc, 13 [...] 10:30 AM EDT Office Visit Urology, [facility] 132 [facility] [place] [address] Chris Royal MD 27 [facility] [address] [place] [address] 06/24/2023 10:40 AM EDT Office Visit Nephrology, [facility] 200 [facility] [place] [address] Demetrius Sherman MD 200 [facility] [place] [address] 06/25/2023 11:30 AM EDT Office Visit Urology, [place] [address] [place], [place] [phone] Saul Vargas MD [address] [place], [place] [address] 07/25/2023 11:15 AM EDT Office Visit Hematology/Oncology [facility] 200 [facility] [place] [address] Aguilar Lizarraga MD 200 [facility] [place] [address] 11/12/2023 9:20 AM EDT Office Visit General Internal Medicine [facility] [address] [place] [address] Nichole Lizarraga MD [address] [place] [address] Pending Results Name Type Priority Associated Diagnoses [...] 03/13/2023 03/13/2022, 10/20 CKD PHOS USE SMARTSET 69982 03/13/2023 03/13/2022, 0 11/09/2021 Cologuard 06/09/2023 06/08/2020, 10/25/2016 Colorectal Cancer Screening 06/09/2023 GFR 09/23/2023 03/25/2023, 0202/2023, 03/01/2023, Additional history exists Mammogram 10/12/2023 10/11/2022, 0504/2021, 01/18/2020, Additional history exists Depression Screening 11/07/2023 11/06/2022 CKD HGB USE SMARTSET 76656 03/25/202403/25, 03/25/2023, 03/21/2023, Additional history exists DXA [...] and were consensually agreed upon. Care Teams Chalk Machine Operator Relationship Specialty Start Date End Date Nichole Lizarraga MD [address] [place] [address] PCP - General Internal Medicine 03/10/12 documented as of this encounter
--- OUTSIDE RECORDS SUMMARY | 2023-06-30 22:54 | External Medical Summary | Summary of Care ---
Author Name Unknown Organization [facility] Address [address] [place] [address] Phone [phone] Care Team Providers Care Licensed Nursing Assistant Name Role Phone Nichole Lizarraga MD Primary Care Provider + Encounter Details Date Type Department Care Team (Late st Contact Info) Description 04/06/2023 Telephone Urology, [place] [address] [place] [address] Saul Vargas MD [address] [place] [address] Allergies Active Allergy Reactions Criticality Noted Date Comments Penicillins Edema airway,Rash High 03/10/2012 Last dose age 14 Pollen 01/17/2021 Ragweed 11/05/2022 documented as of this encounter (statuses as of 04/06/2023) Medications Medication Sig Dispensed Refills Start Date [...] as of this encounter (statuses as of 04/06/2023) Active Problems Problem Noted Date Diagnosed Date [...] as of this encounter (statuses as of 04/06/2023) Resolved Problems Problem Noted Date Diagnosed Date Resolved Date Chronic kidney disease, stage 3a 05/29/2021 05/02/2022 Overview: Per CKD protocol Fever 09/13/2015 10/21/2017 Kidney stone on left side Inguinal hernia 10/21/2017 Overview: Surgical repair Neutropenia 10/21/2017 documented as of this encounter (statuses as of 04/06/2023) Immunizations Name Administration Dates Next Due COVID-19 mRNA, LNP-s, No Pre serve, 2-Dose Series ([employer]) 01/05/2021,05/07/2020,04/16/2020 COVID-19, LNP-s, No Preserve , Jasbir-sucrose, [...] encounter Miscellaneous Notes * Telephone Encounter - Saul Vargas MD - 04/06/2023 12:03 PM EST Called and spoke to patient. Discussed case with her oncologist, Dr. Lizarraga. Her ANC has not improved with appropriate therapy. Her chemo is being delayed. Our recommendation is to proceed with cystectomy for definitive treatmentof her bladder cancer. She was in agreement with this plan. Schedule for cystectomy on 05/08/2023. She will need GIM, H&P, visit with me if possible on same day as other pre-ops. If not, arrangephone call for her. documented in this encounter Plan of Treatment Upcoming Encounters Date Type Department Care Team (Late st Contact Info) Description 05/08/2023 Hospital Encounter [facility], OPERATING ROOM C, [facility] [address] [place] [address] Saul Vargas MD [address] [place] [address] 06/10/2023 10:30 AM EDT Office Visit Urology, [facility] [address] [facility] [place] [address] Chris Royal MD [address] [place] [address] 06/24/2023 10:40 AM EDT Office Visit Nephrology, [facility] [address] [facility] [place] [address] Demetrius Sherman MD [address] [place] [address] 07/25/2023 11:15 AM EDT Office Visit Hematology/Oncology [facility] [address] [place] [address] Aguilar Lizarraga MD [address] [place] [address] 11/12/2023 9:20 AM EDT Office Visit General Internal Medicine [facility] [address] [place] [address] Nichole Lizarraga MD [address] 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) Health Maintenance Due Date Last Done Comments Zoster Vaccines (1 of 2) 01/23/1971 Colonoscopy 01/23/1997 Fecal Occult Blood Test 01/23/1997 Sigmoidoscopy 01/23/1997 DTaP,Tdap,and Td Vaccines (2 - Td or Tdap) 09/02/2022 09/02/2012 Albumin/Creatinine Ratio 03/13/2023 03/13/2022, 10/20 CKD PHOS USE SMARTSET 70764 03/13/2023 03/13/2022, 0 11/09/2021 Cologuard 06/09/2023 06/08/2020, 10/25/2016 Colorectal Cancer Screening 06/09/2023 GFR 10/04/2023 04/05/2023, 02/0 06/2023, 03/21/2023, Additional history exists Mammogram 10/12/2023 10/11/2022, 05/0 04/2021, 01/18/2020, Additional history exists Depression Screening 11/07/2023 11/06/2022 CKD HGB USE SMARTSET 30653 04/05/202404/05, 04/05/2023, 03/26/2023, Additional history exists DXA Scan 10/02/2024 10/02/2022, [...] and were consensually agreed upon. Care Teams Licensed Nursing Assistant Relationship Specialty Start Date End Date Nichole Lizarraga MD [address] [place] [address] PCP - General Internal Medicine 03/10/12 documented as of this encounter
--- OUTSIDE RECORDS SUMMARY | 2023-06-30 22:54 | External Medical Summary ---
Author Name Unknown Address Unknown Organization K[facility] [place] [address] Laboratory Report Ordering Provider Test Date Status KEN RAY 04/12/2023 10:33:07 Final Observation Date Value Abnormality Reference (Units ) Status SYNC LEUKOCYTES IN BLOOD BY AUTOMATED COUNT 04/12/2023 10:33:07 4.67 4.00-10.80 (K/uL) Final Segs 04/12/2023 10:33:07 15.4 Below low normal 40.0-75.0 (%) Final Lymphs % 04/12/2023 10:33:07 63.6 Above high normal 18.0-42.0 (%) Final Monos 04/12/2023 10:33:07 16.9 Above high normal 1.0-11.0 (%) Final Eosinophils 04/12/2023 10:33:07 2.8 0.0-6.0 (%) Final Basos 04/12/2023 10:33:07 1.3 0.0-2.0 (%) Final Absolute Segs 04/12/2023 10:33:07 0.72 Below low normal 1.80-7.70 (K/uL) Final Lymphs, absolute 04/12/2023 10:33:07 2.97 1.00-4.80 (K/ul) Final Monos, Abs 04/12/2023 10:33:07 0.79 0.00-1.10 (K/uL) Final Eos, Abs 04/12/2023 10:33:07 0.13 0.00-0.70 (K/uL) Final Basos, Abs 04/12/2023 10:33:07 0.06 0.00-0.20 (K/uL) Final Performing Location [facility] [place] [address]
--- OUTSIDE RECORDS SUMMARY | 2023-06-30 22:54 | External Medical Summary | Summary of Care ---
Author Name Unknown Organization [facility] Address [address] [place] [address] Phone [phone] Care Team Providers Care Editorial Manager Name Role Phone Nichole Lizarraga MD Primary Care Provider + Reason for Visit * Reason Onset Date Comments Surgery 04/08/2023 Pre ops Encounter Details Date Type Department Care Team (Late st Contact Info) Description 04/08/2023 Telephone Urology, [place] [address] [place] [address] Sual Vargas MD [address] [place] [address] Surgery (Pre ops) Allergies Active Allergy Reactions Criticality Noted Date Comments Penicillins Edema airway,Rash High 03/10/2012 Last dose age 14 Pollen 01/17/2021 Ragweed 11/05/2022 documented as of this encounter (statuses as of 04/08/2023) Medications Medication Sig Dispensed Refills Start Date [...] as of this encounter (statuses as of 04/08/2023) Active Problems Problem Noted Date Diagnosed Date [...] as of this encounter (statuses as of 04/08/2023) Resolved Problems Problem Noted Date Diagnosed Date Resolved Date Chronic kidney disease, stage 3a 05/29/2021 05/02/2022 Overview: Per CKD protocol Fever 09/13/2015 10/21/2017 Kidney stone on left side Inguinal hernia 10/21/2017 Overview: Surgical repair Neutropenia 10/21/2017 documented as of this encounter (statuses as of 04/08/2023) Immunizations Name Administration Dates Next Due COVID-19 mRNA, LNP-s, No Pre serve, 2-Dose Series ([employer]) 01/05/2021,05/07/2020,04/16/2020 COVID-19, LNP-s, No Preserve , Jasbir-sucrose, Ages 12+ ([employer]) 09/06/2021 Covid-19, Mrna, Lnp-s, Pf, B ivalent, [...] encounter Miscellaneous Notes * Telephone Encounter - Mayra Goodson OSA - 04/08/2023 11:52 AM EST The pt is scheduled on 05/08/23 and need to have the following pre ops GIM, H&P, visit with Dr. Vargas if possible on same day as other pre-ops. If not, arrange phone call for her. Post op [address] Vargas documented in this encounter Plan of Treatment Upcoming Encounters Date Type Department Care Team (Latest Contact Info) Description 05/08/2023 10:19 AM EDT Hospital Encounter [place] [facility] [address] [place] [address] Saul Vargas MD [address] [place] [address] 05/08/2023 10:19 AM EDT - 05/08/2023 6:05 PM EDT Surgery [place] [facility] [facility] [address] [place] [address] Saul Vargas MD [address] [place] [address] CYSTECTOMY COMPLETE WITH URETEROILEAL CONDUIT WITH BILATERAL PELVIC LYMPHADENECTOMY 06/10/2023 10:30 AM EDT Office Visit Urology, [facility] [address] [place] [address] Chris Royal MD [address] [facility] [address] [place] [address] 06/24/2023 10:40 AM EDT Office Visit Nephrology, [facility] [address] [facility] [place] [address] Demetrius Sherman MD [address] [facility] [place] [address] 07/25/2023 11:15 AM EDT Office Visit Hematology/Oncolog y [facility] [address] [facility] [place] [phone] Aguilar Lizarraga MD 200 [place] [address] 11/12/2023 9:20 AM EDT Office Visit General Internal Medicine [facility] [address] [facility] [place] [address] Nichole Lizarraga MD 200 [facility] [place] [address] Scheduled Procedures Name Priority Associated Diagnoses Date/Ti [...] 03/13/2023 03/13/2022, 10/20 CKD PHOS USE SMARTSET 26457 03/13/2023 03/13/2022, 0 11/09/2021 Cologuard 06/09/2023 06/08/2020, 10/25/2016 Colorectal Cancer Screening 06/09/2023 GFR 10/04/2023 04/05/2023, 020 06/2023, 03/21/2023, Additional history exists Mammogram 10/12/2023 10/11/2022, 05/0 04/2021, 01/18/2020, Additional history exists Depression Screening 11/07/2023 11/06/2022 CKD HGB USE SMARTSET 33035 04/05/202404/05, 04/05/2023, 03/26/2023, Additional history exists DXA [...] and were consensually agreed upon. Care Teams Editorial Manager Relationship Specialty Start Date End Date Nichole Lizarraga MD [address] [facility] [place] [address] PCP - General Internal Medicine 03/10/12 documented as of this encounter
--- OUTSIDE RECORDS SUMMARY | 2023-06-30 22:54 | External Medical Summary ---
Author Name Unknown Address Unknown Organization [facility] [place] [address] Laboratory Report Ordering Provider Test Date Status KEN RAY 04/12/2023 10:33:07 Final Observation Date Value Abnormality Reference (Units ) Status WBC, Total 04/12/2023 10:33:07 4.67 4.00-10.8 0 (K/uL) Final RBC 04/12/2023 10:33:07 4.36 3.85-5.15 (M/uL) Final Hemoglobin 04/12/2023 10:33:07 12.7 12.0-15.3 (g/dL) Final HCT 04/12/2023 10:33:07 39.7 36.0-45.2 (%) Final MCV 04/12/2023 10:33:07 91.1 81.5-97.5 (fL) Final MCH 04/12/2023 10:33:07 29.1 27.0-34.0 (pg) Final MCHC 04/12/2023 10:33:07 32.0 32.0-36.0 (g/dL) Final RDW 04/12/2023 10:33:07 14.8 11.5-15.5 (%) Final Platelets 04/12/2023 10:33:07 168 140-400 (K /uL) Final MPV 04/12/2023 10:33:07 11.4 6.6-11.1 ( fL) Final Performing Location [facility] [place] [address]
--- OUTSIDE RECORDS SUMMARY | 2023-06-30 22:54 | External Medical Summary | Summary of Care ---
Author Name Unknown Organization [facility] Address [address] [facility] [place] [address] Phone [phone] Care Team Providers Care Transportation Refrigeration Technician Name Role Phone Nichole Lizarraga MD Primary Care Provider + Encounter Details Date Type Department Care Team (Late st Contact Info) Description 04/15/2023 Telephone Hematology/Oncology [facility] [place] [address] [place] [phone] Aguilar Lizarraga MD [address] [place] [address] Allergies Active Allergy Reactions Criticality Noted Date Comments Penicillins Edema airway,Rash High 03/10/2012 Last dose age 14 Pollen 01/17/2021 Ragweed 11/05/2022 documented as of this encounter (statuses as of 04/15/2023) Medications Medication Sig Dispensed Refills Start Date [...] as of this encounter (statuses as of 04/15/2023) Active Problems Problem Noted Date Diagnosed Date [...] as of this encounter (statuses as of 04/15/2023) Resolved Problems Problem Noted Date Diagnosed Date Resolved Date Chronic kidney disease, stage 3a 05/29/2021 05/02/2022 Overview: Per CKD protocol Fever 09/13/2015 10/21/2017 Kidney stone on left side Inguinal hernia 10/21/2017 Overview: Surgical repair Neutropenia 10/21/2017 documented as of this encounter (statuses as of 04/15/2023) Immunizations Name Administration Dates Next Due COVID-19 mRNA, LNP-s, No Pre serve, 2-Dose Series ([employer]) 01/05/2021,05/07/2020,04/16/2020 COVID-19, LNP-s, No Preserve , Jasbir-sucrose, Ages 12+ (Pfizer) 09/06/2021 Covid-19, Mrna, Lnp-s, Pf, B ivalent, 30 Mcg, IM, 12 yrs and above ([employer]) 01/31/2022 PPD 02/19/2017 Pneumococcal Conjugate Vacc, 13 [...] 4600, H&H of 12.7/39.7, Platelet count of 702978 -ANC 720. -BUN/Creat: 14/1.2, normal LFT. Currently she is using G-CSF 4 days a week, I would like to continue that. She is going for cystectomy for the bladder cancer on 05/08/2023. documented in this encounter Plan of Treatment Upcoming Encounters Date Type Department Care Team (Latest Contact Info) Description 04/25/2023 11:30 AM EST Office Visit [facility], [place] [address] [facility] [place] [address] [facility] [address] [facility] [place] [address] 04/25/2023 1:30 PM EST Office Visit General Internal Medicine, [facility] [address] [place] [address] Yumiko Soriano MD [address] [place] [address] 04/30/2023 8:15 AM EDT Telemedicine Urology, [place] [address] [place] [address] Saul Vargas MD [address] [place] [address] 05/08/2023 10:19 AM EDT Hospital Encounter [place] [facility] [facility] [address] [place] [address] Saul Vargas MD [address] [place] [address] 05/08/2023 10:19 AM EDT - 05/08/2023 6:05 PM EDT Surgery OR [facility] OPERATING ROOM [facility] [address] [place] [address] Saul Vargas MD [address] [place] [address] CYSTECTOMY COMPLETE WITH URETEROILEAL CONDUIT WITH BILATERAL PELVIC LYMPHADENECTOMY 06/10/2023 10:30 AM EDT Office Visit Urology, [facility] [address] [facility] [place] [place] [address] Chris Royal MD [address] [place] [address] [place] [address] 06/11/2023 1:45 PM EDT Office Visit Urology, [place] [address] [place] [address] Saul Vargas MD [address] [place] [address] 06/24/2023 10:40 AM EDT Office Visit Nephrology, [facility] 200 [facility] [place] [address] Demetrius Sherman MD 200 [facility] [place] [address] 07/25/2023 11:15 AM EDT Office Visit Hematology/Oncolog y [facility] [address] [facility] [place] [phone] Aguilar Lizarraga MD 200 [facility] [place], [place] [address] 11/12/2023 9:20 AM EDT Office Visit General Internal Medicine [facility] [address] [facility] [address] [place] [address] Nichole Lizarraga MD [address] [place] [address] Scheduled Procedures Name Priority Associated Diagnoses Date/Ti [...] 03/13/2023 03/13/2022, 10/20 CKD PHOS USE SMARTSET 19052 03/13/2023 03/13/2022, 0 11/09/2021 Cologuard 06/09/2023 06/08/2020, 10/25/2016 Colorectal Cancer Screening 06/09/2023 GFR 10/11/2023 04/12/2023, 03/21, 03/25/2023, Additional history exists Mammogram 10/12/2023 10/11/2022, 05/0 04/2021, 01/18/2020, Additional history exists Depression Screening 11/07/2023 11/06/2022 CKD HGB USE SMARTSET 38740 04/12/202404/12, 04/12/2023, 04/05/2023, Additional history exists DXA [...] and were consensually agreed upon. Care Teams Transportation Refrigeration Technician Relationship Specialty Start Date End Date Nichole Lizarraga MD 200 [place] [address] PCP - General Internal Medicine 03/10/12 documented as of this encounter
--- OUTSIDE RECORDS SUMMARY | 2023-06-30 22:54 | External Medical Summary | Summary of Care ---
Author Name Unknown Organization [facility] Address [address] [facility] [place] [address] Phone [phone] Care Team Providers Care Tangible Personal Property Appraiser Name Role Phone Nichole Lizarraga MD Primary Care Provider + Reason for Visit * Reason Comments Procedure BONE MARROW BIOPSY Encounter Details Date Type Department Care Team (Late st Contact Info) Description 03/26/2023 10:15 AM EST Office Visit Hematology/Oncology [facility] [address] [place] [address] Aguilar Lizarraga MD 200 [place] [address] Neutropenia, unspecified type (HCC) [D70.9]*; Large granular [...] mRNA, LNP-s, No Pre serve, 2-Dose Series ([employer]) 01/05/2021,05/07/2020,04/16/2020 COVID-19, LNP-s, No Preserve , Jasbir-sucrose, Ages 12+ (Pfizer) 09/06/2021 Covid-19, Mrna, Lnp-s, Pf, B ivalent, 30 Mcg, IM, 12 yrs and above ([employer]) 01/31/2022 PPD 02/19/2017 Pneumococcal Conjugate Vacc, 13 [...] 06/10/2023 10:30 AM EDT Office Visit Urology, [facility] [address] [facility] [place] [address] Chris Royal MD [address] [facility] [address] [place] [address] 06/24/2023 10:40 AM EDT Office Visit Nephrology, [facility] [place] [address] Demetrius Sehrman MD [address] [facility] [place] [address] 06/25/2023 11:30 AM EDT Office Visit Urology, [place] [address] [place], [place] [address] Saul Vargas MD [address] [place], [place] [address] 07/25/2023 11:15 AM EDT Office Visit Hematology/Oncology [facility] [place] [address] Aguilar Lizarraga MD [address] [facility] [place] [address] 11/12/2023 9:20 AM EDT Office Visit General Internal Medicine [facility] [place] [address] [place] [address] Nichole Lizarraga MD [address] [place] [address] Pending Results Name Type Priority Associated Diagnoses [...] lymphocytic leukemia (HCC) 03/26/2023 11:04 AM EST COMPREHENSIVE BONE MARROW CONSULTATION Pathology [...] 03/13/2023 03/13/2022, 10/20 CKD PHOS USE SMARTSET 54800 03/13/2023 03/13/2022, 0 11/09/2021 Cologuard 06/09/2023 06/08/2020, 10/25/2016 Colorectal Cancer Screening 06/09/2023 GFR 09/23/2023 03/25/2023, 02/2023, 03/01/2023, Additional history exists Mammogram 10/12/2023 10/11/2022, 05/0 04/2021, 01/18/2020, Additional history exists Depression Screening 11/07/2023 11/06/2022 CKD HGB USE SMARTSET 90726 03/25/202403/25, 03/25/2023, 03/21/2023, Additional history exists DXA [...] and were consensually agreed upon. Care Teams Tangible Personal Property Appraiser Relationship Specialty Start Date End Date Nichole Lizarraga MD [address] [facility] [place] [address] PCP - General Internal Medicine 03/10/12 documented as of this encounter
--- OUTSIDE RECORDS SUMMARY | 2023-06-30 22:54 | External Medical Summary | Summary of Care ---
Author Name Unknown Organization [facility] Address [address] [facility] [place] [address] Phone [phone] Care Team Providers Care Gamma Ray Operator Name Role Phone Nichole Lizarraga MD Primary Care Provider + Reason for Visit * Reason Comments Procedure BONE MARROW BIOPSY Encounter Details Date Type Department Care Team (Late st Contact Info) Description 03/26/2023 10:15 AM EST Office Visit Hematology/Oncology [facility] 200 [place] [address] Aguilar Lizarraga MD [address] [place] [address] Neutropenia, unspecified type (HCC) [D70.9]*; Large granular [...] mRNA, LNP-s, No Pre serve, 2-Dose Series ([employer]) 01/05/2021,05/07/2020,04/16/2020 COVID-19, LNP-s, No Preserve , Jasbir-sucrose, Ages 12+ (Pfizer) 09/06/2021 Covid-19, Mrna, Lnp-s, Pf, B ivalent, 30 Mcg, IM, 12 yrs and above ([employer]) 01/31/2022 PPD 02/19/2017 Pneumococcal Conjugate Vacc, 13 [...] 06/10/2023 10:30 AM EDT Office Visit Urology, [facility] [address] [facility] [place] [address] Chris Royal MD [address] [place] [address] 06/24/2023 10:40 AM EDT Office Visit Nephrology, [facility] [address] [place] [address] Demetrius Sherman MD 200 [facility] [place] [address] 06/25/2023 11:30 AM EDT Office Visit Urology, [place] [address] [place] [address] Saul Vargas MD [address] [place] [address] 07/25/2023 11:15 AM EDT Office Visit Hematology/Oncology [facility] [address] [place] [address] Aguilar Lizarraga MD [address] [place] [address] 11/12/2023 9:20 AM EDT Office Visit General Internal Medicine [facility] [address] [facility] [place], [place] [address] Nichole Lizarraga MD [address] [facility] [place] [address] Pending Results Name Type Priority Associated Diagnoses [...] lymphocytic leukemia (HCC) 03/26/2023 11:26 AM EST SERUM IMMUNOFIXATION Lab Routine Neutropenia, unspecified type (HCC) [D70.9] Large granular lymphocytic leukemia (HCC) 03/26/2023 12:00 PM EST Scheduled Orders Name Type Priority Associated Diagnoses Orde r Schedule DIAGNOSTIC BONE MARROW; BIOPSY(IES) AND ASPIRATION(S) Procedures Routine Neutropenia, unspecified type (HCC) [D70.9] Large granular lymphocytic leukemia (HCC) Ordered: 03/26/2023 FLOW CYTOMETRY, LEUKEMIA LYMPHOMA PANEL Lab Routine Neutropenia, unspecified type (HCC) [D70.9] Large granular lymphocytic leukemia (HCC) Ordered: 03/27/2023 Health Maintenance Due Date Last Done Comments Zoster Vaccines (1 of 2) 01/23/1971 Colonoscopy 01/23/1997 Fecal Occult Blood Test 01/23/1997 Sigmoidoscopy 01/23/1997 DTaP,Tdap,and Td Vaccines (2 - Td or Tdap) 09/02/2022 09/02/2012 Albumin/Creatinine Ratio 03/13/2023 03/13/2022, 10/20 CKD PHOS USE SMARTSET 41293 03/13/2023 03/13/2022, 0 11/09/2021 Cologuard 06/09/2023 06/08/2020, 10/25/2016 Colorectal Cancer Screening 06/09/2023 GFR 09/23/2023 03/25/2023, 02/0 02/2023, 03/01/2023, Additional history exists Mammogram 10/12/2023 10/11/2022, 05/0 04/2021, 01/18/2020, Additional history exists Depression Screening 11/07/2023 11/06/2022 CKD HGB USE SMARTSET 59867 03/26/202403/26, 03/26/2023, 03/25/2023, Additional history exists DXA [...] MD LAB BLOOD ORDERABLES Performing Organization Address [facility] Phone Number [facility] [address] [place] [address] * DIFFERENTIAL, AUTOMATED (03/26/2023 11:04 AM EST) Blood Venous blood specimen / Unknown Venipuncture / Unknown 03/26/2023 11:04 AM EST 03/26/2023 11:05 AM EST Aguilar Lizarraga MD LAB BLOOD ORDERABLES Performing Organization Address [facility] Phone Number [facility] [address] [place] [address] * (ABNORMAL) CBC (03/26/2023 11:04 AM EST) [...] MD LAB BLOOD ORDERABLES [facility] [address] [place] [address] documented in this encounter Visit [...] and were consensually agreed upon. Care Teams Gamma Ray Operator Relationship Specialty Start Date End Date Nichole Lizarraga MD 200 [facility] [address] PCP - General Internal Medicine 03/10/12 documented as of this encounter
--- OUTSIDE RECORDS SUMMARY | 2023-06-30 22:54 | External Medical Summary | Summary of Care ---
Author Name Unknown Organization [facility] Address [address] [facility] [address] Phone [phone] Care Team Providers Care It Software Developer Name Role Phone Nichole Lizarraga MD Primary Care Provider + Encounter Details Date Type Department Care Team (Late st Contact Info) Description 03/29/2023 Telephone Hematology/Oncology [facility] [place] [address] [place] [address] Aguilar Lizarraga MD [address] [place] [facility] [place] [address] Allergies Active Allergy Reactions Criticality Noted Date Comments Penicillins Edema airway,Rash High 03/10/2012 Last dose age 14 Pollen 01/17/2021 Ragweed 11/05/2022 documented as of this encounter (statuses as of 03/29/2023) Medications Medication Sig Dispensed Refills Start Date [...] as of this encounter (statuses as of 03/29/2023) Active Problems Problem Noted Date Diagnosed Date [...] as of this encounter (statuses as of 03/29/2023) Resolved Problems Problem Noted Date Diagnosed Date Resolved Date Chronic kidney disease, stage 3a 05/29/2021 05/02/2022 Overview: Per CKD protocol Fever 09/13/2015 10/21/2017 Kidney stone on left side Inguinal hernia 10/21/2017 Overview: Surgical repair Neutropenia 10/21/2017 documented as of this encounter (statuses as of 03/29/2023) Immunizations Name Administration Dates Next Due COVID-19 mRNA, LNP-s, No Pre serve, 2-Dose Series ([employer]) 01/05/2021,05/07/2020,04/16/2020 COVID-19, LNP-s, No Preserve , [...] Telephone Encounter - Josh Escalera RN - 03/29/2023 4:12 PM EST Called patient and informed. She is aware to restart Zarxio at this time and re- check labs weekly. She is aware that we are still waiting for some labs to return as well for further evaluation. * Telephone Encounter - Josh Escalera RN - 03/29/2023 4:00 PM EST ----- Message from Aguilar Lizarraga MD sent at 03/29/2023 1:37 PM EST ----- Bone marrow examination shows large involved lymphocytosis, cytopenias, FISH and T-cell gene rearrangement studies pending. -increased plasma cells noted but blood workup showed no monoclonal paraprotein level in the blood. 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 I would like to restart G-CSF 480 microgram 4 days a week what she was on before. Would like to repeat CBCD about 1 week after the G-CSF treatment. documented in this encounter Plan of Treatment Upcoming Encounters Date Type Department Care Team (Late st Contact Info) Description 06/10/2023 10:30 AM EDT Office Visit Urology, [facility] 132 [facility] [place] [address] Chris Royal MD 27 [facility] [address] [place] [address] 06/24/2023 10:40 AM EDT Office Visit Nephrology, [facility] [address] [place] [address] Demetrius Sherman MD 200 [facility] [place] [address] 07/25/2023 11:15 AM EDT Office Visit Hematology/Oncology [facility] 200 [facility] [place] [address] Aguilar Lizarraga MD 200 [facility] [place] [address] 11/12/2023 9:20 AM EDT Office Visit General Internal Medicine [facility] 200 [facility] [place] [address] Nichole Lizarraga MD 200 [facility] [place] [address] Health Maintenance Due Date Last Done Comments Zoster Vaccines (1 of 2) 01/23/1971 Colonoscopy 01/23/1997 Fecal Occult Blood Test 01/23/1997 Sigmoidoscopy 01/23/1997 DTaP,Tdap,and Td Vaccines (2 - Td or Tdap) 09/02/2022 09/02/2012 Albumin/Creatinine Ratio 03/13/2023 03/13/2022, 10/20 CKD PHOS USE SMARTSET 76998 03/13/2023 03/13/2022, 0 11/09/2021 Cologuard 06/09/2023 06/08/2020, 10/25/2016 Colorectal Cancer Screening 06/09/2023 GFR 09/23/2023 03/25/2023, 02/0 02/2023, 03/01/2023, Additional history exists Mammogram 10/12/2023 10/11/2022, 05/0 04/2021, 01/18/2020, Additional history exists Depression Screening 11/07/2023 11/06/2022 CKD HGB USE SMARTSET 39707 03/26/202403/26, 03/26/2023, 03/25/2023, Additional history exists DXA [...] and were consensually agreed upon. Care Teams It Software Developer Relationship Specialty Start Date End Date Nichole Lizarraga MD 200 [place] [address] PCP - General Internal Medicine 03/10/12 documented as of this encounter
--- OUTSIDE RECORDS SUMMARY | 2023-06-30 22:54 | External Medical Summary | Summary of Care ---
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) Allergies Active Allergy Reactions Criticality Noted Date Comments Penicillins Edema airway,Rash High 03/10/2012 Last dose age 14 Pollen 01/17/2021 Ragweed 11/05/2022 documented as of this encounter (statuses as of 04/12/2023) Medications Medication Sig Dispensed Refills Start Date [...] as of this encounter (statuses as of 04/12/2023) Active Problems Problem Noted Date Diagnosed Date [...] as of this encounter (statuses as of 04/12/2023) Resolved Problems Problem Noted Date Diagnosed Date Resolved Date Chronic kidney disease, stage 3a 05/29/2021 05/02/2022 Overview: Per CKD protocol Fever 09/13/2015 10/21/2017 Kidney stone on left side Inguinal hernia 10/21/2017 Overview: Surgical repair Neutropenia 10/21/2017 documented as of this encounter (statuses as of 04/12/2023) Immunizations Name Administration Dates Next Due COVID-19 mRNA, LNP-s, No Pre serve, 2-Dose Series ([facility]) 01/05/2021,05/07/2020,04/16/2020 COVID-19, LNP-s, No Preserve , Jasbir-sucrose, [...] 04/25/2023 11:30 AM EST Office Visit Urology, [place] [address] [place] [address] Kin Joseph PA-C [address] [place] [address] 04/25/2023 1:30 PM EST Office Visit General Internal Medicine, [facility] [address] [place] [address] Yumiko Soriano MD [address] [place] [address] 04/30/2023 8:15 AM EDT Telemedicine Urology, [place] [address] [place] [address] Saul Vargas MD [address] [place] [address] 05/08/2023 10:19 AM EDT Hospital Encounter [facility], OPERATING ROOM [facility], ADRY WILSON [address] [place] [address] Saul Vargas MD [address] [place] [address] 05/08/2023 10:19 AM EDT - 05/08/2023 6:05 PM EDT Surgery OR [facility], OPERATING ROOM [facility], ADRY MENDOZAILIJONAS [address] [place] [address] Saul Vargas MD [address] [place] [address] CYSTECTOMY COMPLETE WITH URETEROILEAL CONDUIT WITH BILATERAL PELVIC LYMPHADENECTOMY 06/10/2023 10:30 AM EDT Office Visit Urology, [facility] 132 [facility] [place] [address] Chris Royal MD [address] [address] 06/11/2023 1:45 PM EDT Office Visit Urology, [place] [address] [place] [address] Saul Vargas MD [address] [place] [address] 06/24/2023 10:40 AM EDT Office Visit Nephrology, [facility] [place] [address] Demetrius Sherman MD 200 [place] [address] 07/25/2023 11:15 AM EDT Office Visit Hematology/Oncolog y [facility] 200 [facility] [place] [address] Aguilar Lizarraga MD 200 [place] [address] 11/12/2023 9:20 AM EDT Office Visit General Internal Medicine [facility] [address] [place] [address] Nichole Lizarraga MD 200 [place] [address] Pending Results Name Type Priority Associated Diagnoses Date /Time COMPREHENSIVE METABOLIC PANEL Lab STAT 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) 04/12/2023 10:33 AM EST MAGNESIUM Lab STAT 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) 04/12/2023 10:33 AM EST Scheduled Procedures Name Priority Associated [...] 03/13/2023 03/13/2022, 10/20 CKD PHOS USE SMARTSET 71811 03/13/2023 03/13/2022, 0 11/09/2021 Cologuard 06/09/2023 06/08/2020, 10/25/2016 Colorectal Cancer Screening 06/09/2023 GFR 10/04/2023 04/05/2023, 020 06/2023, 03/21/2023, Additional history exists Mammogram 10/12/2023 10/11/2022, 05/0 04/2021, 01/18/2020, Additional history exists Depression Screening 11/07/2023 11/06/2022 CKD HGB USE SMARTSET 55211 04/05/202404/12, 04/12/2023, 04/05/2023, Additional history exists DXA Scan [...] Date/Time Associated Diagnosis Comments DIFFERENTIAL, AUTOMATED STAT 04/12/2023 10:33 AM EST 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) CBC STAT 04/12/2023 10:33 AM EST 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) CBC STAT 04/12/2023 10:33 AM EST 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) documented in this encounter Results * (ABNORMAL) DIFFERENTIAL, AUTOMATED (04/12/2023 10:33 AM EST) WBC 4.67 4.00 - 10.80 K/uL 04/12/2023 10:38 AM EST [facility] Neutrophils % 15.4(L) 40.0 - 75.0 % 04/12/2023 10:38 AM EST [facility] Lymphocytes % 63.6(H) 18.0 - 42.0 % 04/12/2023 10:38 AM EST [facility] Monocytes % 16.9(H) 1.0 - 11.0 % 04/12/2023 10:38 AM EST [facility]02 Eosinophils % 2.8 0.0 - 6.0 % 04/12/2023 10:38 AM EST [facility] Basophils % 1.3 0.0 - 2.0 % 04/12/2023 10:38 AM [facility] 56-02 Absolute Neutrophils 0.72(L) 1.80 - 7.70 K/uL 04/12/2023 10:38 AM [facility] 56-02 Absolute Lymphocytes 2.97 1.00 - 4.80 K/ul 04/12/2023 10:38 AM [facility] 56-02 Absolute Monocytes 0.79 0.00 - 1.10 K/uL 04/12/2023 10:38 AM [facility] 56-02 Absolute Eosinophils 0.13 0.00 - 0.70 K/uL 04/12/2023 10:38 AM [facility] 56-02 Absolute Basophils 0.06 0.00 - 0.20 K/uL 04/12/2023 10:38 AM [facility] 56-02 Blood Venous blood specimen / Unknown Venipuncture / Unknown 04/12/2023 10:33 AM EST 04/12/2023 10:33 AM EST Aguilar Lizarraga MD LAB BLOOD ORDERABLES [facility] [address]- [address] [place] [address] * CBC (04/12/2023 10:33 AM EST) WBC 4.67 4.00 - 10.80 K/uL 04/12/2023 10:38 AM [facility] 56- RBC 4.36 3.85 - 5.15 M/uL 04/12/2023 10:38 AM [facility] 56-02 HGB 12.7 12.0 - 15.3 g/dL 04/12/2023 10:38 AM [facility] 56- HCT 39.7 36.0 - 45.2 % 04/12/2023 10:38 AM [facility] 56- MCV 91.1 81.5 - 97.5 fL 04/12/2023 10:38 AM [facility] 56- MCH 29.1 27.0 - 34.0 pg 04/12/2023 10:38 AM [facility] 56- MCHC 32.0 32.0 - 36.0 g/dL 04/12/2023 10:38 AM EST [facility] 56- RDW 14.8 11.5 - 15.5 % 04/12/2023 10:38 AM EST [facility] 56- PLT 168 140 - 400 K/uL 04/12/2023 10:38 AM EST [facility] 56- MPV 11.4 6.6 - 11.1 fL 04/12/2023 10:38 AM EST [facility] 56- Blood Venous blood specimen / Unknown Venipuncture / Unknown 04/12/2023 10:33 AM EST 04/12/2023 10:33 AM EST Aguilar Lizarraga MD LAB BLOOD ORDERABLES [facility] [address] [place] [address] documented in this encounter Visit Diagnoses Diagnosis [...] were consensually agreed upon. Care Teams Senior Branch Manager Relationship Specialty Start Date End Date Nichole Lizarraga MD [address] [place] [address], [place] [address] PCP - General Internal Medicine 03/10/12 documented as of this encounter
--- OUTSIDE RECORDS SUMMARY | 2023-06-30 22:54 | External Medical Summary ---
Author Name Unknown Address Unknown Organization [id number] [address] [place] [address] Laboratory Report Ordering Provider Test Date Status KEN RAY 04/12/2023 10:33:07 Final Observation Date Value Abnormality Reference (Units ) Status BUN 04/12/2023 10:33:07 14 6-20 (mg/dL) Final Creatinine 04/12/2023 10:33:07 1.2 Above high normal 0.5-1.0 (mg/dL) Final Glomerular filtration rate/1.73 sq M.predicted [Volume Rate/Area] in Serum, Plasma or Blood by Creatinine-based formula (CKD-EPI) 04/12/2023 10:33:07 47 Below low normal >=60 (mL/min) Final eGFR is calculated based on the CKD-EPI 2020 equation SODIUM 04/12/2023 10:33:07 144 135-146 (m mol/L) Final Potassium 04/12/2023 10:33:07 4.4 3.5-5.1 (m mol/L) Final Cl 04/12/2023 10:33:07 107 98-107 (mm ol/L) Final CO2 04/12/2023 10:33:07 28 22-32 (mmo l/L) Final Anion gap 04/12/2023 10:33:07 9 7-15 (mmol /L) Final Glucose 04/12/2023 10:33:07 98 70-120 (mg /dL) Final Albumin 04/12/2023 10:33:07 3.8 3.8-5.0 (g /dL) Final AST (Aspartate aminotransferase) 04/12/2023 10:33:07 13 10-35 (U/L) Fin al Alk Phos 04/12/2023 10:33:07 73 35-130 (U/ L) Final Bilirubin, Total 04/12/2023 10:33:07 0.5 <=1 .2 (mg/dL) Final Calcium 04/12/2023 10:33:07 9.2 8.4-10.2 ( mg/dL) Final Protein 04/12/2023 10:33:07 7.5 6.0-8.3 (g /dL) Final ALT (Alanine aminotransferase) 04/12/2023 10:33:07 5 Below low normal 10-35 (U/L) Final Performing Location [facility] [address] [place] [address]
--- OUTSIDE RECORDS SUMMARY | 2023-06-30 22:54 | External Medical Summary | Summary of Care ---
Author Name Unknown Organization [facility] Address [address] [facility] [place] [address] Phone [phone] Care Team Providers Care Coping Machine Assembler Name Role Phone Nichole Lizarraga MD Primary Care Provider + Reason for Visit * Reason Comments Outpatient Testing Encounter Details Date Type Department Care Team (Late st Contact Info) Description 04/05/2023 3:50 PM EST Laboratory [facility] [address] [place] [address] [place] [phone] [place], Lab Scenery [address] [place] [address] Chronic neutropenia (HCC); Large granular lymphocytic leukemia (HCC); 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) Allergies Active Allergy Reactions Criticality Noted Date Comments Penicillins Edema airway,Rash High 03/10/2012 Last dose age 14 Pollen 01/17/2021 Ragweed 11/05/2022 documented as of this encounter (statuses as of 04/05/2023) Medications Medication Sig Dispensed Refills Start Date [...] as of this encounter (statuses as of 04/05/2023) Active Problems Problem Noted Date Diagnosed Date [...] as of this encounter (statuses as of 04/05/2023) Resolved Problems Problem Noted Date Diagnosed Date Resolved Date Chronic kidney disease, stage 3a 05/29/2021 05/02/2022 Overview: Per CKD protocol Fever 09/13/2015 10/21/2017 Kidney stone on left side Inguinal hernia 10/21/2017 Overview: Surgical repair Neutropenia 10/21/2017 documented as of this encounter (statuses as of 04/05/2023) Immunizations Name Administration Dates Next Due COVID-19 mRNA, LNP-s, No Pre serve, 2-Dose Series ([employer]) 01/05/2021,05/07/2020,04/16/2020 COVID-19, LNP-s, No Preserve , Jasbir-sucrose, [...] 06/10/2023 10:30 AM EDT Office Visit Urology, [facility] 132 [facility] [place] [address] Chris Royal MD 27 [facility] [address] [place] [address] 06/24/2023 10:40 AM EDT Office Visit Nephrology, [facility] [address] Demetrius Sherman MD 200 [facility] [place] [address] 07/25/2023 11:15 AM EDT Office Visit Hematology/Oncology [facility] [place] 200 [facility] [place], [place] [address] Aguilar Lizarraga MD 200 [facility] [place] [address] 11/12/2023 9:20 AM EDT Office Visit [facility] [place] 200 [facility] [place] [address] Nichole Lizarraga MD 200 [facility] [place] [address] Pending Results Name Type Priority Associated Diagnoses Date /Time CBC WITH WBC DIFFERENTIAL Lab STAT 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) 04/05/2023 3:37 PM EST COMPREHENSIVE METABOLIC PANEL Lab STAT 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) 04/05/2023 3:37 PM EST MAGNESIUM Lab STAT 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) 04/05/2023 3:37 PM EST CBC Lab STAT 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) 04/05/2023 3:37 PM EST DIFFERENTIAL, AUTOMATED Lab STAT 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) 04/05/2023 3:37 PM EST Health Maintenance Due Date Last Done Comments Zoster Vaccines (1 of 2) 01/23/1971 Colonoscopy 01/23/1997 Fecal Occult Blood Test 01/23/1997 Sigmoidoscopy 01/23/1997 DTaP,Tdap,and Td Vaccines (2 - Td or Tdap) 09/02/2022 09/02/2012 Albumin/Creatinine Ratio 03/13/2023 03/13/2022, 10/20 CKD PHOS USE SMARTSET 94775 03/13/2023 03/13/2022, 0 11/09/2021 Cologuard 06/09/2023 06/08/2020, 10/25/2016 Colorectal Cancer Screening 06/09/2023 GFR 09/23/2023 03/25/2023, 02/2023, 03/01/2023, Additional history exists Mammogram 10/12/2023 10/11/2022, 050 04/2021, 01/18/2020, Additional history exists Depression Screening 11/07/2023 11/06/2022 CKD HGB USE SMARTSET 33943 03/26/202403/26, 03/26/2023, 03/25/2023, Additional history exists DXA [...] and were consensually agreed upon. Care Teams Coping Machine Assembler Relationship Specialty Start Date End Date Nichole Lizarraga MD [address] [place] [address], [place] [address] PCP - General Internal Medicine 03/10/12 documented as of this encounter
--- OUTSIDE RECORDS SUMMARY | 2023-06-30 22:54 | External Medical Summary ---
Author Name Unknown Address Unknown Organization [facility] [place] [address] Laboratory Report Ordering Provider Test Date Status KEN RAY 04/05/2023 15:37:52 Final Observation Date Value Abnormality Reference (Units ) Status WBC, Total 04/05/2023 15:37:52 4.31 4.00-10.8 0 (K/uL) Final RBC 04/05/2023 15:37:52 4.22 3.85-5.15 (M/uL) Final Hemoglobin 04/05/2023 15:37:52 12.1 12.0-15.3 (g/dL) Final HCT 04/05/2023 15:37:52 38.5 36.0-45.2 (%) Final MCV 04/05/2023 15:37:52 91.2 81.5-97.5 (fL) Final MCH 04/05/2023 15:37:52 28.7 27.0-34.0 (pg) Final MCHC 04/05/2023 15:37:52 31.4 32.0-36.0 (g/dL) Final RDW 04/05/2023 15:37:52 14.5 11.5-15.5 (%) Final Platelets 04/05/2023 15:37:52 135 Below low normal 140 -400 (K/uL) Final MPV 04/05/2023 15:37:52 12.6 6.6-11.1 ( fL) Final Performing Location [facility] [place] [address]
--- OUTSIDE RECORDS SUMMARY | 2023-06-30 22:54 | External Medical Summary ---
Author Name Unknown Address Unknown Organization K[facility] [place] [address] Laboratory Report Ordering Provider Test Date Status FLORKEN 04/05/2023 15:37:52 Final Observation Date Value Abnormality Reference (Units ) Status Magnesium 04/05/2023 15:37:52 2.2 1.5-2.6 (m g/dL) Final Performing Location [facility] [place] [address]
--- OUTSIDE RECORDS SUMMARY | 2023-06-30 22:55 | External Medical Summary ---
Author Name Unknown Address Unknown Organization : Laboratory Report Ordering Provider Test Date Status KEN RAY 03/26/2023 10:45:00 Final Observation Date Value Abnormality Reference (Units ) Status Performing Location
--- OUTSIDE RECORDS SUMMARY | 2023-06-30 22:55 | External Medical Summary | Summary of Care ---
Author Name Unknown Organization [facility] Address [address] [facility] [place] [address] Phone [phone] Care Team Providers Care Tapping Machine Operator Name Role Phone Nichole Lizarraga MD Primary Care Provider + Reason for Visit * Reason Comments Procedure BONE MARROW BIOPSY Encounter Details Date Type Department Care Team (Late st Contact Info) Description 03/26/2023 10:15 AM EST Office Visit Hematology/Oncology [facility] 200 [facility] [place] [address] Aguilar Lizarraga MD 200 [place] [address] Neutropenia, unspecified type (HCC) [D70.9]*; Large granular [...] mRNA, LNP-s, No Pre serve, 2-Dose Series ([employer]) 01/05/2021,05/07/2020,04/16/2020 COVID-19, LNP-s, No Preserve , Jasbir-sucrose, Ages 12+ (Pfizer) 09/06/2021 Covid-19, Mrna, Lnp-s, Pf, B ivalent, 30 Mcg, IM, 12 yrs and above ([employer]) 01/31/2022 PPD 02/19/2017 Pneumococcal Conjugate Vacc, 13 [...] discomfort that occurs after you return home. Aguilra Lizarraga MD documented in this encounter Progress [...] bone marrow needle placed through this opening. Bonemarrow needle advanced into bone with minimal difficulty. Bone marrow aspirate obtained without difficulty. Bone marrow needle advanced further and biopsy taken in the usual fashion without difficulty. Lab assisted and spicules present with biopsy specimen. Direct pressure applied to incisional site with good hemostasis and a 4 x 4 [...] Visit Urology, [facility] 132 [facility] [place] [address] Chris Royal MD 27 [facility] [address] [place] [address] 06/24/2023 10:40 AM EDT Office Visit Nephrology, [facility] [address] [place] [address] Demetrius Sherman MD 200 [facility] [place] [address] 06/25/2023 11:30 AM EDT Office Visit Urology, [place] [address] [place], [place] [id number] Saul Vargas MD [address] [place], [place] [id number] 07/25/2023 11:15 AM EDT Office Visit Hematology/Oncology [facility] 200 [facility] [place] [address] Aguilar Lizarraga MD 200 [facility] [place] [address] 11/12/2023 9:20 AM EDT Office Visit General Internal Medicine [facility] [place] [address] [place] [address] [address] Nichole Lizarraga MD 200 [place] [address] Pending Results Name Type Priority Associated Diagnoses Date /Time CBC WITH WBC DIFFERENTIAL Lab Routine Neutropenia, unspecified type (HCC) [D70.9] Large granular lymphocytic leukemia (HCC) 03/26/2023 11:04 AM EST CBC Lab Routine Neutropenia, unspecified [...] Large granular lymphocytic leukemia (HCC) Ordered: 03/26/2023 BONE MARROW PANEL Lab Routine Neutropenia, unspecified type (HCC) [D70.9] Large granular lymphocytic leukemia (HCC) Ordered: 03/26/2023 SURGICAL PATHOLOGY Pathology Routine Neutropenia, unspecified type (HCC) [D70.9] Large granular lymphocytic leukemia (HCC) Ordered: 03/26/2023 BONE MARROW ASPIRATE LAVENDER (MOLECULAR) - 2 TUB* Lab Routine Neutropenia, unspecified type (HCC) [D70.9] Large granular lymphocytic leukemia (HCC) Ordered: 03/26/2023 BONE MARROW ASPIRATE GREEN (FLOW) Lab Routine Neutropenia, unspecified type (HCC) [D70.9] Large granular lymphocytic leukemia (HCC) Ordered: 03/26/2023 BONE MARROW ASPIRATE GREEN (REFERRED) Lab Routine Neutropenia, unspecified type (HCC) [D70.9] Large granular lymphocytic leukemia (HCC) Ordered: 03/26/2023 BONE MARROW WITH REFLEX TESTING Pathology Routine Neutropenia, unspecified type (HCC) [D70.9] Large granular lymphocytic leukemia (HCC) Ordered: 03/26/2023 Health Maintenance Due Date Last Done Comments Zoster Vaccines (1 of 2) 01/23/1971 Colonoscopy 01/23/1997 Fecal Occult Blood Test 01/23/1997 Sigmoidoscopy 01/23/1997 DTaP,Tdap,and Td Vaccines (2 - Td or Tdap) 09/02/2022 09/02/2012 Albumin/Creatinine Ratio 03/13/2023 03/13/2022, 10/20 CKD PHOS USE SMARTSET 02816 03/13/2023 03/13/2022, 0 11/09/2021 Cologuard 06/09/2023 06/08/2020, 10/25/2016 Colorectal Cancer Screening 06/09/2023 GFR 09/23/2023 03/25/2023, 020 02/2023, 03/01/2023, Additional history exists Mammogram 10/12/2023 10/11/2022, 05/0 04/2021, 01/18/2020, Additional history exists Depression Screening 11/07/2023 11/06/2022 CKD HGB USE SMARTSET 99170 03/25/202403/25, 03/25/2023, 03/21/2023, Additional history exists DXA [...] and were consensually agreed upon. Care Teams Tapping Machine Operator Relationship Specialty Start Date End Date Nichole Lizarraga MD 200 [facility] [place] [address] PCP - General Internal Medicine 03/10/12 documented as of this encounter
--- OUTSIDE RECORDS SUMMARY | 2023-06-30 22:55 | External Medical Summary ---
Author Name Unknown Address Unknown Organization [id number]:LABORATORY [facility] [place] - [address] [place] [address] Laboratory Report Ordering Provider Test Date Status KEN RAY 03/26/2023 11:26:00 Final Observation Date Value Abnormality Reference (Units ) Status REFERENCE LAB SCANNED REPORT 03/26/2023 11:26:00 See Scanned Report Final Performing Location [facility]ORY [facility] - [address] [place] [address]
--- OUTSIDE RECORDS SUMMARY | 2023-06-30 22:55 | External Medical Summary ---
Author Name Unknown Address Unknown Organization [id number]:LABORATORY [facility] - 100 [facility] [place] [address] Laboratory Report Ordering Provider Test Date Status KEN RAY 03/26/2023 11:04:00 Final Observation Date Value Abnormality Reference (Units ) Status SYNC LEUKOCYTES IN BLOOD BY AUTOMATED COUNT 03/26/2023 11:04:00 2.64 Below low normal 4.00-10.80 (K/uL) Final Neutrophils/100 leukocytes in Blood by Manual count 03/26/2023 11:04:00 9.0 Below low normal 40.0-75.0 (%) Final Lymphocytes/100 leukocytes in Blood by Manual count 03/26/2023 11:04:00 69.0 Above high normal 18.0-42.0 (%) Final Monocytes/100 leukocytes in Blood by Manual count 03/26/2023 11:04:00 16.0 Above high normal 1.0-11.0 (%) Final Eosinophils/100 leukocytes in Blood by Manual count 03/26/2023 11:04:00 4.0 0.0-6.0 (%) Final Basophils/100 leukocytes in Blood by Manual count 03/26/2023 11:04:00 2.0 0.0-2.0 (%) Final Neutrophils [#/volume] in Blood by Manual count 03/26/2023 11:04:00 0.24 Below low normal 1.80-7.70 (K/uL) Final Lymphocytes [#/volume] in Blood by Manual count 03/26/2023 11:04:00 1.82 1.00-4.80 (K/uL) Final Monocytes [#/volume] in Blood by Manual count 03/26/2023 11:04:00 0.42 0.00-1.10 (K/uL) Final Eosinophils [#/volume] in Blood by Manual count 03/26/2023 11:04:00 0.11 0.00-0.70 (K/uL) Final Basophils [#/volume] in Blood by Manual count 03/26/2023 11:04:00 0.05 0.00-0.20 (K/uL) Final Variant lymphocytes [Presence] in Blood by Light microscopy 03/26/2023 11:04:00 Present Abnormal None Seen Final Performing Location LABORATORY [facility] [place] - [address] [facility] [address]
--- OUTSIDE RECORDS SUMMARY | 2023-06-30 22:55 | External Medical Summary | Summary of Care ---
Author Name Unknown Organization [facility] Address [address] [facility] [place] [address] Phone [phone] Care Team Providers Care Web Site Developer Name Role Phone Nichole Lizarraga MD Primary Care Provider + Reason for Visit * Reason Comments Procedure BONE MARROW BIOPSY Encounter Details Date Type Department Care Team (Late st Contact Info) Description 03/26/2023 10:15 AM EST Office Visit Hematology/Oncology [facility] 200 [facility] [place] [address] Aguilar Lizarraga MD 200 [place] [address] Neutropenia, unspecified type (HCC) [D70.9]*; Large granular [...] mRNA, LNP-s, No Pre serve, 2-Dose Series ([employer]) 01/05/2021,05/07/2020,04/16/2020 COVID-19, LNP-s, No Preserve , Jasbir-sucrose, Ages 12+ (Pfizer) 09/06/2021 Covid-19, Mrna, Lnp-s, Pf, B ivalent, 30 Mcg, IM, 12 yrs and above ([employer]) 01/31/2022 PPD 02/19/2017 Pneumococcal Conjugate Vacc, 13 [...] 06/10/2023 10:30 AM EDT Office Visit Urology, [facility] 132 [facility] [place] [address] Chris Royal MD 27 [facility] 270 [place] [address] 06/24/2023 10:40 AM EDT Office Visit Nephrology, [facility] 200 [facility] [place] [address] Demetrius Sherman MD 200 [facility] [place] [address] 06/25/2023 11:30 AM EDT Office Visit Urology, [place] [address] [place], [place] [phone] Saul Vargas MD [address] [place], [place] [address] 07/25/2023 11:15 AM EDT Office Visit Hematology/Oncology [facility] 200 [facility] [place] [address] Aguilar Lizarraga MD 200 [facility] [place] [address] 11/12/2023 9:20 AM EDT Office Visit General Internal Medicine [facility] [place] [address] [place] [address] [address] Nichole Lizarraga MD [address] [place] [address] Pending Results Name Type Priority Associated Diagnoses Date /Time BONE MARROW PANEL Lab Routine Neutropenia, unspecified type (HCC) [D70.9] Large granular lymphocytic leukemia (HCC) 03/26/2023 11:26 AM EST SURGICAL PATHOLOGY Pathology Routine Neutropenia, [...] lymphocytic leukemia (HCC) 03/26/2023 11:26 AM EST BONE MARROW ASPIRATE GREEN (FLOW) Lab Routine Neutropenia, unspecified type (HCC) [D70.9] Large granular lymphocytic leukemia (HCC) 03/26/2023 11:26 AM EST BONE MARROW ASPIRATE GREEN (REFERRED) Lab Routine Neutropenia, unspecified type (HCC) [D70.9] Large granular lymphocytic leukemia (HCC) 03/26/2023 11:26 AM EST BONE MARROW WITH REFLEX TESTING [...] 03/13/2023 03/13/2022, 10/20 CKD PHOS USE SMARTSET 61090 03/13/2023 03/13/2022, 0 11/09/2021 Cologuard 06/09/2023 06/08/2020, 10/25/2016 Colorectal Cancer Screening 06/09/2023 GFR 09/23/2023 03/25/2023, 0202/2023, 03/01/2023, Additional history exists Mammogram 10/12/2023 10/11/2022, 0504/2021, 01/18/2020, Additional history exists Depression Screening 11/07/2023 11/06/2022 CKD HGB USE SMARTSET 57712 03/25/202403/25, 03/25/2023, 03/21/2023, Additional history exists DXA [...] and were consensually agreed upon. Care Teams Web Site Developer Relationship Specialty Start Date End Date Nichole Lizarraga MD [address] [place] [address] PCP - General Internal Medicine 03/10/12 documented as of this encounter
--- OUTSIDE RECORDS SUMMARY | 2023-06-30 22:55 | External Medical Summary ---
Author Name Unknown Address Unknown Organization [id number]:LABORATORY [facility] [place] - [address] [place] [address] Laboratory Report Ordering Provider Test Date Status KEN RAY 03/26/2023 12:00:00 Final Observation Date Value Abnormality Reference (Units) Status PARAPROTEIN NORMAL/ABNORMAL 03/26/2023 12:00:00 Normal Normal Final Immunofixation for Serum or Plasma 03/26/2023 12:00:00 No monoclonal gammopathy detected. Final Performing Location LABORATORY [facility] - [address] [place] [address]
--- OUTSIDE RECORDS SUMMARY | 2023-06-30 22:55 | External Medical Summary ---
Author Name Unknown Address Unknown Organization K01:LAB[facility]ATORY [facility] [place] [address] [place] [address] Laboratory Report Ordering Provider Test Date Status KEN RAY 03/26/2023 11:26:00 Final Observation Date Value Abnormality Reference (Units ) Status REFERENCE LAB SCANNED REPORT 03/26/2023 11:26:00 See Scanned Report Final Performing Location LAB[facility] - [address] [place] [address]
--- OUTSIDE RECORDS SUMMARY | 2023-06-30 22:55 | External Medical Summary ---
Author Name Unknown Address Unknown Organization K01:[facility] [place] [facility] [address] [place] [address] Laboratory Report Ordering Provider Test Date Status KEN RAY 03/26/2023 11:04:00 Final Observation Date Value Abnormality Reference (Units ) Status WBC, Total 03/26/2023 11:04:00 2.64 Below low normal 4. 00-10.80 (K/uL) Final RBC 03/26/2023 11:04:00 4.10 3.85-5.15 (M/uL) Final Hemoglobin 03/26/2023 11:04:00 12.1 12.0-15.3 (g/dL) Final HCT 03/26/2023 11:04:00 38.3 36.0-45.2 (%) Final MCV 03/26/2023 11:04:00 93.4 81.5-97.5 (fL) Final MCH 03/26/2023 11:04:00 29.5 27.0-34.0 (pg) Final MCHC 03/26/2023 11:04:00 31.6 32.0-36.0 (g/dL) Final RDW 03/26/2023 11:04:00 13.9 11.5-15.5 (%) Final Platelets 03/26/2023 11:04:00 147 140-400 (K /uL) Final MPV 03/26/2023 11:04:00 Final No result - abnormal platele t distribution. Nucleated erythrocytes/100 l eukocytes [Ratio] in Blood by Automated count 03/26/2023 11:04:00 0 <=0 (/100 WBCs) Final Performing Location LAB[facility]ORY [facility] [place] [address] [place] [address]
--- OUTSIDE RECORDS SUMMARY | 2023-06-30 22:55 | External Medical Summary ---
Author Name Unknown Address Unknown Organization : Laboratory Report Ordering Provider Test Date Status KEN RAY 03/26/2023 10:45:00 Final Observation Date Value Abnormality Reference (Units) Status BONE MARROW COLLECTION 03/26/2023 10:45:00 Sent to [employer] Final Performing Location
--- OUTSIDE RECORDS SUMMARY | 2023-06-30 22:55 | External Medical Summary ---
Author Name Unknown Address Unknown Organization K01:LABORATORY [facility] [place] - [address] [place] [address] Laboratory Report Ordering Provider Test Date Status KEN RAY 03/26/2023 10:45:00 Final Observation Date Value Abnormality Reference (Units ) Status BONE MARROW FOR FLOW CYTOMETRY 03/26/2023 10:45:00 Yes Final Performing Location LABORATORY [facility] [place] - [address] [place] [address]
--- OUTSIDE RECORDS SUMMARY | 2023-06-30 22:55 | External Medical Summary ---
Author Name Unknown Address Unknown Organization K01:LABORATORY [facility] [place] - [address] [place] [address] Laboratory Report Ordering Provider Test Date Status KEN RAY 03/26/2023 11:26:00 Final Observation Date Value Abnormality Reference (Units ) Status REFERENCE LAB SCANNED REPORT 03/26/2023 11:26:00 See Scanned Report Final Performing Location LAB[facility] - [address] [place] [address]
--- OUTSIDE RECORDS SUMMARY | 2023-06-30 22:55 | External Medical Summary | Summary of Care ---
Author Name Unknown Organization [facility] Address [address] [facility] [place] [address] Phone [phone] Care Team Providers Care Trestle Builder Name Role Phone Nichole Lizarraga MD Primary Care Provider + Reason for Visit * Reason Comments Procedure BONE MARROW BIOPSY Encounter Details Date Type Department Care Team (Late st Contact Info) Description 03/26/2023 10:15 AM EST Office Visit Hematology/Oncology [facility] 200 [facility] [place] [address] Aguilar Lizarraga MD 200 [place] [address] Neutropenia, unspecified type (HCC) [D70.9]*; Large granular [...] mRNA, LNP-s, No Pre serve, 2-Dose Series ([employer]) 01/05/2021,05/07/2020,04/16/2020 COVID-19, LNP-s, No Preserve , Jasbir-sucrose, Ages 12+ (Pfizer) 09/06/2021 Covid-19, Mrna, Lnp-s, Pf, B ivalent, 30 Mcg, IM, 12 yrs and above ([employer]) 01/31/2022 PPD 02/19/2017 Pneumococcal Conjugate Vacc, 13 [...] 06/10/2023 10:30 AM EDT Office Visit Urology, [facility] 132 [facility] [place] [address] Chris Royal MD 27 [facility] 270 [place] [address] 06/24/2023 10:40 AM EDT Office Visit Nephrology, [facility] 200 [facility] [place] [address] Demetrius Sherman MD 200 [facility] [place] [address] 06/25/2023 11:30 AM EDT Office Visit Urology, [place] [address] [place], [place] [phone] Saul Vargas MD [address] [place], [place] [address] 07/25/2023 11:15 AM EDT Office Visit Hematology/Oncology [facility] 200 [facility] [place] [address] Aguilar Lizarraga MD 200 [facility] [place] [address] 11/12/2023 9:20 AM EDT Office Visit General Internal Medicine [facility] [place] [address] [place] [address] [address] Nichole Lizarraga MD [address] [place] [address] Pending Results Name Type Priority Associated Diagnoses Date /Time BONE MARROW PANEL Lab Routine Neutropenia, unspecified type (HCC) [D70.9] Large granular lymphocytic leukemia (HCC) 03/26/2023 11:26 AM EST CBC WITH WBC DIFFERENTIAL Lab [...] 03/13/2023 03/13/2022, 10/20 CKD PHOS USE SMARTSET 85607 03/13/2023 03/13/2022, 0 11/09/2021 Cologuard 06/09/2023 06/08/2020, 10/25/2016 Colorectal Cancer Screening 06/09/2023 GFR 09/23/2023 03/25/2023, 020 02/2023, 03/01/2023, Additional history exists Mammogram 10/12/2023 10/11/2022, 050 04/2021, 01/18/2020, Additional history exists Depression Screening 11/07/2023 11/06/2022 CKD HGB USE SMARTSET 57328 03/25/202403/25, 03/25/2023, 03/21/2023, Additional history exists DXA [...] and were consensually agreed upon. Care Teams Trestle Builder Relationship Specialty Start Date End Date Nichole Lizarraga MD 200 [facility] [place] [address] PCP - General Internal Medicine 03/10/12 documented as of this encounter
--- OUTSIDE RECORDS SUMMARY | 2023-06-30 22:55 | External Medical Summary | Summary of Care ---
Author Name Unknown Organization [facility] Address [address] [facility] [place] [address] Phone [phone] Care Team Providers Care Physician Surgeon Name Role Phone Nichole Lizarraga MD Primary Care Provider + Reason for Visit * Reason Comments Procedure BONE MARROW BIOPSY Encounter Details Date Type Department Care Team (Late st Contact Info) Description 03/26/2023 10:15 AM EST Office Visit Hematology/Oncology [facility] 200 [facility] [place] [address] Aguilar Lizarraga MD 200 [place] [address] Neutropenia, unspecified type (HCC) [D70.9]*; Large granular [...] mRNA, LNP-s, No Pre serve, 2-Dose Series ([employer]) 01/05/2021,05/07/2020,04/16/2020 COVID-19, LNP-s, No Preserve , Jasbir-sucrose, Ages 12+ ([employer]) 09/06/2021 Covid-19, Mrna, Lnp-s, Pf, B ivalent, 30 Mcg, IM, 12 yrs and above ([employer]) 01/31/2022 PPD 02/19/2017 Pneumococcal Conjugate Vacc, 13 [...] 06/10/2023 10:30 AM EDT Office Visit Urology, [facility] 132 [facility] [place] [address] Chris Royal MD 27 [facility] [address] [place] [address] 06/24/2023 10:40 AM EDT Office Visit Nephrology, [facility] 200 [facility] [place] [address] Demetrius Sherman MD 200 [facility] [place] [address] [address] 06/25/2023 11:30 AM EDT Office Visit Urology, [place] [address] [place], [place] [phone] Saul Vargas MD [address] [place], [place] [phone] 07/25/2023 11:15 AM EDT Office Visit Hematology/Oncology [facility] 200 [facility] [place] [address] Aguilar Lizarraga MD 200 [facility] [place] [address] 11/12/2023 9:20 AM EDT Office Visit General Internal Medicine [facility] [place] [address] [address] Nichole Lizarraga MD [address] [place] [address] Pending Results Name Type Priority Associated Diagnoses [...] 03/13/2023 03/13/2022, 10/20 CKD PHOS USE SMARTSET 07525 03/13/2023 03/13/2022, 0 11/09/2021 Cologuard 06/09/2023 06/08/2020, 10/25/2016 Colorectal Cancer Screening 06/09/2023 GFR 09/23/2023 03/25/2023, 020 02/2023, 03/01/2023, Additional history exists Mammogram 10/12/2023 10/11/2022, 050 04/2021, 01/18/2020, Additional history exists Depression Screening 11/07/2023 11/06/2022 CKD HGB USE SMARTSET 19530 03/25/202403/25, 03/25/2023, 03/21/2023, Additional history exists DXA [...] were consensually agreed upon. Care Teams Physician Surgeon Relationship Specialty Start Date End Date Nichole Lizarraga MD 200 [facility] [place] [address] PCP - General Internal Medicine 03/10/12 documented as of this encounter
--- OUTSIDE RECORDS SUMMARY | 2023-06-30 22:55 | External Medical Summary ---
Author Name Unknown Address Unknown Organization K01:LABORATORY [facility] [place] - [address] [place] [address] Laboratory Report Ordering Provider Test Date Status KEN RAY 03/26/2023 11:26:00 Final Observation Date Value Abnormality Reference (Units ) Status REFERENCE LAB SCANNED REPORT 03/26/2023 11:26:00 See Scanned Report Final Performing Location LAB[facility]ORY [facility] - [address] [place] [address]
--- OUTSIDE RECORDS SUMMARY | 2023-06-30 22:56 | External Medical Summary | Summary of Care ---
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); Chronic neutropenia (HCC) Allergies Active Allergy Reactions Criticality Noted Date Comments Penicillins Edema airway,Rash High 03/10/2012 Last dose age 14 Pollen 01/17/2021 Ragweed 11/05/2022 documented as of this encounter (statuses as of 03/21/2023) Medications Medication Sig Dispensed Refills Start Date [...] as of this encounter (statuses as of 03/21/2023) Active Problems Problem Noted Date Diagnosed Date [...] as of this encounter (statuses as of 03/21/2023) Resolved Problems Problem Noted Date Diagnosed Date Resolved Date Chronic kidney disease, stage 3a 05/29/2021 05/02/2022 Overview: Per CKD protocol Fever 09/13/2015 10/21/2017 Kidney stone on left side Inguinal hernia 10/21/2017 Overview: Surgical repair Neutropenia 10/21/2017 documented as of this encounter (statuses as of 03/21/2023) Immunizations Name Administration Dates Next Due COVID-19 mRNA, LNP-s, No Pre serve, 2-Dose Series ([email or web address]) 01/05/2021,05/07/2020,04/16/2020 COVID-19, LNP-s, No Preserve , Jasbir-sucrose, [...] on file documented as of this encounter Nursing Notes * Kalli Olivares, RN - 03/21/2023 3:[address] Lizarraga, delay treatment due to ANC 0.04. Labs will be rechecked on Saturday03/25/23, with treatment tentatively scheduled for this day. Pt was advised to self-administer Xarxio 480mg starting today, daily through Saturday. Pt verbalized understanding. documented in this encounter Plan of Treatment Upcoming Encounters Date Type Department Care Team (Late st Contact Info) Description 03/25/2023 8:10 AM EST Laboratory [facility] [address] [place] [id number] [place], Lab Scenery [address] [facility] [place] [address] 03/25/2023 9:15 AM EST Hem/Onc Treatment Hematology/Oncology Treatment, [place] [address] [facility] [address] [place], [place] [address] Snady, Chair 4 Hem Onc [address] [place] [address] 06/10/2023 10:30 AM EDT Office Visit Urology, [facility] [address] [facility] [place] [address] Chris Royal MD [address] [facility] [address] [address] [place] [address] 06/24/2023 10:40 AM EDT Office Visit [facility], [facility] [address] [place] [address] Demetrius Sherman MD [address] [place] [address] 06/25/2023 11:30 AM EDT Office Visit Urology, [place] [address] [place] [address] Saul Vargas MD [address] [place] [address] 07/25/2023 11:15 AM EDT Office Visit Hematology/Oncology [address] [place] [address] Aguilar Lizarraga MD [address] [facility] [place] [address] 11/12/2023 9:20 AM EDT Office Visit General Internal Medicine [facility] [address] [facility] [place] [address] Nichole Lizarraga MD [address] [facility] [place], [place] [address] Health Maintenance Due Date Last Done Comments Zoster Vaccines (1 of 2) 01/23/1971 Colonoscopy 01/23/1997 Fecal Occult Blood Test 01/23/1997 Sigmoidoscopy 01/23/1997 DTaP,Tdap,and Td Vaccines (2 - Td or Tdap) 09/02/2022 09/02/2012 Albumin/Creatinine Ratio 03/13/2023 03/13/2022, 10/20 CKD PHOS USE SMARTSET 77186 03/13/2023 03/13/2022, 0 11/09/2021 Cologuard 06/09/2023 06/08/2020, 10/25/2016 Colorectal Cancer Screening 06/09/2023 GFR 09/19/2023 03/21/2023, 02/18, 01/28/2023, Additional history exists Mammogram 10/12/2023 10/11/2022, 05/0 04/2021, 01/18/2020, Additional history exists Depression Screening 11/07/2023 11/06/2022 CKD HGB USE SMARTSET 89895 03/21/202403/21, 03/21/2023, 03/01/2023, Additional history exists DXA Scan 10/02/2024 10/02/2022, [...] as of this encounter Visit Diagnoses Diagnosis Encounter for antineoplastic chemotherapy- 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 Care Teams Customer Insight Analyst Relationship Specialty Start Date End Date Nichole Lizarraga MD [address] [place] [address] PCP - General Internal Medicine 03/10/12 documented as of this encounter
--- OUTSIDE RECORDS SUMMARY | 2023-06-30 22:56 | External Medical Summary ---
Author Name Unknown Address Unknown Organization [facility] [place] [address] Laboratory Report Ordering Provider Test Date Status KEN RAY 03/21/2023 08:32:10 Final Observation Date Value Abnormality Reference (Units ) Status SYNC LEUKOCYTES IN BLOOD BY AUTOMATED COUNT 03/21/2023 08:32:10 3.56 Below low normal 4.00-10.80 (K/uL) Final Neutrophils/100 leukocytes in Blood by Manual count 03/21/2023 08:32:10 1.0 Below low normal 40.0-75.0 (%) Final Lymphocytes/100 leukocytes in Blood by Manual count 03/21/2023 08:32:10 62.0 Above high normal 18.0-42.0 (%) Final Monocytes/100 leukocytes in Blood by Manual count 03/21/2023 08:32:10 32.0 Above high normal 1.0-11.0 (%) Final Eosinophils/100 leukocytes in Blood by Manual count 03/21/2023 08:32:10 5.0 0.0-6.0 (%) Final Neutrophils [#/volume] in Blood by Manual count 03/21/2023 08:32:10 0.04 Below low normal 1.80-7.70 (K/uL) Final Lymphocytes [#/volume] in Blood by Manual count 03/21/2023 08:32:10 2.21 1.00-4.80 (K/uL) Final Monocytes [#/volume] in Blood by Manual count 03/21/2023 08:32:10 1.14 Above high normal 0.00-1.10 (K/uL) Final Eosinophils [#/volume] in Blood by Manual count 03/21/2023 08:32:10 0.18 0.00-0.70 (K/uL) Final Nucleated erythrocytes/100 leukocytes [Ratio] in Blood by Automated count 03/21/2023 08:32:10 Final Variant lymphocytes [Presence] in Blood by Light microscopy 03/21/2023 08:32:10 Present Abnormal None Seen Final Smudge cells [Presence] in Blood by Light microscopy 03/21/2023 08:32:10 Present Abnormal None Seen Final Performing Location [facility] [address] [place] [address]
--- OUTSIDE RECORDS SUMMARY | 2023-06-30 22:56 | External Medical Summary ---
Author Name Unknown Address Unknown Organization [facility] [place] [address] Laboratory Report Ordering Provider Test Date Status KEN RAY 03/25/2023 08:07:30 Final Observation Date Value Abnormality Reference (Units ) Status WBC, Total 03/25/2023 08:07:30 3.58 Below low normal 4. 00-10.80 (K/uL) Final RBC 03/25/2023 08:07:30 4.13 3.85-5.15 (M/uL) Final Hemoglobin 03/25/2023 08:07:30 12.2 12.0-15.3 (g/dL) Final HCT 03/25/2023 08:07:30 38.3 36.0-45.2 (%) Final MCV 03/25/2023 08:07:30 92.7 81.5-97.5 (fL) Final MCH 03/25/2023 08:07:30 29.5 27.0-34.0 (pg) Final MCHC 03/25/2023 08:07:30 31.9 32.0-36.0 (g/dL) Final RDW 03/25/2023 08:07:30 14.6 11.5-15.5 (%) Final Platelets 03/25/2023 08:07:30 154 140-400 (K /uL) Final MPV 03/25/2023 08:07:30 12.0 6.6-11.1 ( fL) Final Performing Location [place] [place] [address]
--- OUTSIDE RECORDS SUMMARY | 2023-06-30 22:56 | External Medical Summary ---
Author Name Unknown Address Unknown Organization [facility] [place] [address] Laboratory Report Ordering Provider Test Date Status KEN RAY 03/25/2023 08:07:30 Final Observation Date Value Abnormality Reference (Units ) Status Magnesium 03/25/2023 08:07:30 2.1 1.5-2.6 (m g/dL) Final Performing Location [facility] [place] [address]
--- OUTSIDE RECORDS SUMMARY | 2023-06-30 22:56 | External Medical Summary | Summary of Care ---
Author Name Unknown Organization [facility] Address [address] [facility] [place] [address] Phone [phone] Care Team Providers Care Assembler Semiconductor Name Role Phone Nichole Lizarraga MD Primary Care Provider + Reason for Visit * Reason Onset Date Comments Test Results Lab 03/25/2023 Encounter Details Date Type Department Care Team (Late st Contact Info) Description 03/25/2023 Telephone Hematology/Oncology [facility] 200 [facility] [place] [address] Aguilar Lizarraga MD [address] [place] [address] Test Results Lab Allergies Active Allergy Reactions Criticality Noted Date Comments Penicillins Edema airway,Rash High 03/10/2012 Last dose age 14 Pollen 01/17/2021 Ragweed 11/05/2022 documented as of this encounter (statuses as of 03/25/2023) Medications Medication Sig Dispensed Refills Start Date [...] as of this encounter (statuses as of 03/25/2023) Active Problems Problem Noted Date Diagnosed Date [...] as of this encounter (statuses as of 03/25/2023) Resolved Problems Problem Noted Date Diagnosed Date Resolved Date Chronic kidney disease, stage 3a 05/29/2021 05/02/2022 Overview: Per CKD protocol Fever 09/13/2015 10/21/2017 Kidney stone on left side Inguinal hernia 10/21/2017 Overview: Surgical repair Neutropenia 10/21/2017 documented as of this encounter (statuses as of 03/25/2023) Immunizations Name Administration Dates Next Due COVID-19 mRNA, LNP-s, No Pre serve, 2-Dose Series ([employer]) 01/05/2021,05/07/2020,04/16/2020 COVID-19, LNP-s, No Preserve , Jasbir-sucrose, [...] Telephone Encounter - Hazel Burkett OSA - 03/25/2023 10:15 AM EST Pt added to schedule * Telephone Encounter - Dee Brush RN - 03/25/2023 9:37 AM EST ANC 0.04. Per Dr Lizarraga, delay treatment x1 week, would like to do BMBx tomorrow. Called patient. She states that she did miss 1-2 weeks of zarxio in between her old and new prescriptions but has been consistently taking it the last 2 weeks. She has it written down at home so willlet us know how many doses she missed. She is agreeable to BMBx. Accepted appt. Called lab, they are aware. Scheduling: please add patient to Dr Rodriguez schedule tomorrow at 10:15am "BMBx". Thanks! documented in this encounter Plan of Treatment Upcoming Encounters Date Type Department Care Team (Late st Contact Info) Description 03/26/2023 10:15 AM EST Office Visit Hematology/Oncology [facility] [address] [place] [address] Aguilar Lizarraga MD 200 [facility] [place] [address] 06/10/2023 10:30 AM EDT Office Visit Urology, [facility] 132 [place] [address] Chris Royal MD 27 [facility] [address] [place] [address] 06/24/2023 10:40 AM EDT Office Visit Nephrology, [facility] [address] [place] [address] Demetrius Sherman MD 200 [facility] [place] [address] 06/25/2023 11:30 AM EDT Office Visit Urology, [place] [address] [place] [address] Saul Vargas MD [address] [place] [address] 07/25/2023 11:15 AM EDT Office Visit Hematology/Oncology [facility] [address] [facility] [place] [address] Aguilar Lizarraga MD [address] [facility] [place] [address] 11/12/2023 9:20 AM EDT Office Visit General Internal Medicine [facility] [address] [place] [address] Nichole Lizarraga MD [address] [place] [address] Health Maintenance Due Date Last Done Comments Zoster Vaccines (1 of 2) 01/23/1971 Colonoscopy 01/23/1997 Fecal Occult Blood Test 01/23/1997 Sigmoidoscopy 01/23/1997 DTaP,Tdap,and Td Vaccines (2 - Td or Tdap) 09/02/2022 09/02/2012 Albumin/Creatinine Ratio 03/13/2023 03/13/2022, 10/20 CKD PHOS USE SMARTSET 18667 03/13/2023 03/13/2022, 0 11/09/2021 Cologuard 06/09/2023 06/08/2020, 10/25/2016 Colorectal Cancer Screening 06/09/2023 GFR 09/23/2023 03/25/2023, 02/0 02/2023, 03/01/2023, Additional history exists Mammogram 10/12/2023 10/11/2022, 05/0 04/2021, 01/18/2020, Additional history exists Depression Screening 11/07/2023 11/06/2022 CKD HGB USE SMARTSET 25302 03/25/202403/25, 03/25/2023, 03/21/2023, Additional history exists DXA [...] and were consensually agreed upon. Care Teams Assembler Semiconductor Relationship Specialty Start Date End Date Nichole Lizarraga MD 200 [place] [address] PCP - General Internal Medicine 03/10/12 documented as of this encounter
--- OUTSIDE RECORDS SUMMARY | 2023-06-30 22:56 | External Medical Summary ---
Author Name Unknown Address Unknown Organization [facility] [place] [address] Laboratory Report Ordering Provider Test Date Status KEN RAY 03/25/2023 08:07:30 Final Observation Date Value Abnormality Reference (Units ) Status BUN 03/25/2023 08:07:30 13 6-20 (mg/dL) Final Creatinine 03/25/2023 08:07:30 1.2 Above high normal 0.5-1.0 (mg/dL) Final Glomerular filtration rate/1.73 sq M.predicted [Volume Rate/Area] in Serum, Plasma or Blood by Creatinine-based formula (CKD-EPI) 03/25/2023 08:07:30 50 Below low normal >=60 (mL/min) Final eGFR is calculated based on the CKD-EPI 2020 equation SODIUM 03/25/2023 08:07:30 141 135-146 (m mol/L) Final Potassium 03/25/2023 08:07:30 4.4 3.5-5.1 (m mol/L) Final Cl 03/25/2023 08:07:30 106 98-107 (mm ol/L) Final CO2 03/25/2023 08:07:30 26 22-32 (mmo l/L) Final Anion gap 03/25/2023 08:07:30 9 7-15 (mmol /L) Final Glucose 03/25/2023 08:07:30 98 70-120 (mg /dL) Final Albumin 03/25/2023 08:07:30 3.5 Below low normal 3.8 -5.0 (g/dL) Final AST (Aspartate aminotransferase) 03/25/2023 08:07:30 13 10-35 (U/L) Fin al Alk Phos 03/25/2023 08:07:30 70 35-130 (U/ L) Final Bilirubin, Total 03/25/2023 08:07:30 0.4 <=1 .2 (mg/dL) Final Calcium 03/25/2023 08:07:30 9.2 8.4-10.2 ( mg/dL) Final Protein 03/25/2023 08:07:30 7.0 6.0-8.3 (g /dL) Final ALT (Alanine aminotransferase) 03/25/2023 08:07:30 6 Below low normal 10-35 (U/L) Final Performing Location [facility] [address] [place] [address]
--- OUTSIDE RECORDS SUMMARY | 2023-06-30 22:56 | External Medical Summary | Summary of Care ---
Author Name Unknown Organization [facility] Address [address] [facility] [place] [address] Phone [phone] Care Team Providers Care Agency Manager Name Role Phone Nichole Lizarraga MD Primary Care Provider + Reason for Visit * Reason Comments Outpatient Testing Encounter Details Date Type Department Care Team (Late st Contact Info) Description 03/21/2023 8:30 AM EST Laboratory [facility] [place] [place] [address] [place] [id number] [place], Lab Scenery [address] [place] [address] Chronic neutropenia (HCC); Large granular lymphocytic leukemia [...] mRNA, LNP-s, No Pre serve, 2-Dose Series ([employer]) 01/05/2021,05/07/2020,04/16/2020 COVID-19, LNP-s, No Preserve , Jasbir-sucrose, [...] Care Team (Late st Contact Info) Description 03/21/2023 9:30 AM EST Hem/Onc Treatment [facility]ology[facility] [place] [facility] [address] 06/10/2023 10:30 AM EDT Office Visit Urology, [facility] 132 [facility] [place] [address] Chris Royal MD [address] [address] [place] [address] 06/24/2023 10:40 AM EDT Office Visit [facility]phrology, [facility] [address] Demetrius Sherman MD 200 [facility] [place] [address] 06/25/2023 11:30 AM EDT Office Visit Urology, [place] [address] [place] [address] Saul Vargas MD [address] [place] [address] 07/25/2023 11:15 AM EDT Office Visit Hematology/Oncology [facility] 200 [facility] [place] [address] Aguilar Lizarraga MD 200 [facility] [place] [address] 11/12/2023 9:20 AM EDT Office Visit General Internal Medicine [facility] 200 [facility] [place] [address] Nichole Lizarraga MD 200 [facility] [place] [address] Pending Results Name Type Priority Associated Diagnoses Date /Time CBC WITH WBC DIFFERENTIAL Lab STAT 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) 03/21/2023 8:32 AM EST COMPREHENSIVE METABOLIC PANEL Lab STAT 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) 03/21/2023 8:32 AM EST MAGNESIUM Lab STAT 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) 03/21/2023 8:32 AM EST CBC Lab STAT 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) 03/21/2023 8:32 AM EST DIFFERENTIAL, AUTOMATED Lab STAT 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) 03/21/2023 8:32 AM EST Health Maintenance Due Date Last Done Comments Zoster Vaccines (1 of 2) 01/23/1971 Colonoscopy 01/23/1997 Fecal Occult Blood Test 01/23/1997 Sigmoidoscopy 01/23/1997 DTaP,Tdap,and Td Vaccines (2 - Td or Tdap) 09/02/2022 09/02/2012 Albumin/Creatinine Ratio 03/13/2023 03/13/2022, 10/20 CKD PHOS USE SMARTSET 75859 03/13/2023 03/13/2022, 0 11/09/2021 Cologuard 06/09/2023 06/08/2020, 10/25/2016 Colorectal Cancer Screening 06/09/2023 GFR 08/30/2023 03/01/2023, 01/18, 01/15/2023, Additional history exists Mammogram 10/12/2023 10/11/2022, 05/04/2021, 01/18/2020, Additional history exists Depression Screening 11/07/2023 11/06/2022 CKD HGB USE SMARTSET 71645 03/01/202403/01, 03/01/2023, 02/26/2023, Additional history exists DXA Scan 10/02/2024 10/02/2022, [...] and were consensually agreed upon. Care Teams Agency Manager Relationship Specialty Start Date End Date Nichole Lizarraga MD 200 [facility] [place] [address] PCP - General Internal Medicine 03/10/12 documented as of this encounter
--- OUTSIDE RECORDS SUMMARY | 2023-06-30 22:56 | External Medical Summary | Summary of Care ---
Author Name Unknown Organization [facility] Address [address] [facility] [address] Phone [phone] Care Team Providers Care Rn Cardiac Rehab Name Role Phone Nichole Lizarraga MD Primary Care Provider + Reason for Visit * Reason Onset Date Comments Precert Future 03/01/2023 Encounter Details Date Type Department Care Team (Late st Contact Info) Description 03/01/2023 Telephone Hematology/Oncology Treatment, [place] [address] [place] [address] Aguilar Lizarraga MD 200 [place] [address] Precert Future Allergies Active Allergy Reactions Criticality Noted Date [...] mRNA, LNP-s, No Pre serve, 2-Dose Series ([employer]) 01/05/2021,05/07/2020,04/16/2020 COVID-19, LNP-s, No Preserve , Jasbir-sucrose, [...] Encounter - Dee Brush RN - 03/25/2023 11:[address] Lizarraga: FYI on zarxio break "Here's Zarxio injection info: Injected the last 300mcg syringe on 03/07/23 Injected the first 480mcg syringe on Saturday03/18/23 That leaves a 10-day stretch with no Zarxio injected. 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 Been keeping track of myself out of habit." * Telephone Encounter - Ena Talbot OSA - 03/13/2023 10:28 AM EST Called and spoke to patient and she is scheduled for lab work and treatment on 03/21/23. Abdirahman * Telephone Encounter - Dee Brush RN - 03/13/2023 10:01 AM EST Called patient, advised that we need to know what day she is scheduled for chemo and then can determine zarxio schedule based on the day she is scheduled for. She is agreeable to scheduling. Scheduling: please route back to nursing once scheduled. * Telephone Encounter - Ena Talbot OSA - 03/13/2023 8:59 AM EST Nursing-please contact patient and explain more about the injection and explain to scheduling when patient should be scheduled by. Thank you. * Telephone Encounter - Ena Talbot OSA - 03/13/2023 8:44 AM EST Return patients call to return our call. * Telephone Encounter - Dee Brush RN - 03/12/2023 4:37 PM EST Patient called back in other encounter. * Telephone Encounter - Ena Talbot OSA - 03/12/2023 2:07 PM EST Called and lmom for patient. * Telephone Encounter - Dee Brush RN - 03/12/2023 12:37 PM EST Patient is getting zarxio . Scheduling: please call patient to schedule - labs "CBCd, CMP, mag" - 6 hour appt "C1D1 cisplatin/ gemzar" (Zia) Thanks! * Telephone Encounter - Dee Brush RN - 03/01/2023 1:50 PM EST Order received for cisplatin/ gemzar. Prentiss plan built and routed for signature. Waiting for auth. Consent signed 03/01/23. Patient went to have hep B labs drawn; however, these ordered were not released by lab. Nurse education 03/01/23. Patient has appt with urology in [place] 03/05/23- waiting until after this appt for treatment in case alternative treatment option is recommended. While on cisplatin and gemzar, patient to continue zarxio 4 days/ week but will increase dose to 480mcg- new refill encounter sent for this dose, waiting for auth for this dose. documented in this encounter Plan of Treatment Upcoming Encounters Date Type Department Care Team (Late st Contact Info) Description 03/26/2023 10:15 AM EST Office Visit Hematology/Oncology [facility] 200 [facility] [place] [address] Aguilar Lizarraga MD 200 [facility] [place] [address] 06/10/2023 10:30 AM EDT Office Visit Urology, [facility] 132 [facility] [place] [address] Chris Royal MD 27 [facility] [address] [place] [address] 06/24/2023 10:40 AM EDT Office Visit Nephrology, [facility] [address] [place] [address] Demetrius Sherman MD 200 [facility] [place] [address] 06/25/2023 11:30 AM EDT Office Visit Urology, [place] [address] [place] [address] Saul Vargas MD [address] [place] [address] 07/25/2023 11:15 AM EDT Office Visit Hematology/Oncology [facility] 200 [facility] [place] [address] Aguilar Lizarraga MD 200 [facility] [place] [address] 11/12/2023 9:20 AM EDT Office Visit General Internal Medicine [facility] 200 [facility] [place] [address] Nichole Lizarraga MD 200 [place] [address] Health Maintenance Due Date Last Done Comments Zoster Vaccines (1 of 2) 01/23/1971 Colonoscopy 01/23/1997 Fecal Occult Blood Test 01/23/1997 Sigmoidoscopy 01/23/1997 DTaP,Tdap,and Td Vaccines (2 - Td or Tdap) 09/02/2022 09/02/2012 Albumin/Creatinine Ratio 03/13/2023 03/13/2022, 10/20 CKD PHOS USE SMARTSET [id number] 03/13/2023 03/13/2022, 0 11/09/2021 Cologuard 06/09/2023 06/08/2020, 10/25/2016 Colorectal Cancer Screening 06/09/2023 GFR 09/23/2023 03/25/2023, 020 02/2023, 03/01/2023, Additional history exists Mammogram 10/12/2023 10/11/2022, 050 04/2021, 01/18/2020, Additional history exists Depression Screening 11/07/2023 11/06/2022 CKD HGB USE SMARTSET 45920 03/25/202403/25, 03/25/2023, 03/21/2023, Additional history exists DXA [...] and were consensually agreed upon. Care Teams Rn Cardiac Rehab Relationship Specialty Start Date End Date Nichole Lizarraga MD 200 [facility] [place] [address] PCP - General Internal Medicine 03/10/12 documented as of this encounter
--- OUTSIDE RECORDS SUMMARY | 2023-06-30 22:56 | External Medical Summary ---
Author Name Unknown Address Unknown Organization K09:[facility] [place] [address] Laboratory Report Ordering Provider Test Date Status KEN RAY 03/21/2023 08:32:10 Final Observation Date Value Abnormality Reference (Units ) Status Magnesium 03/21/2023 08:32:10 2.0 1.5-2.6 (m g/dL) Final Performing Location [facility] [place] [address]
--- OUTSIDE RECORDS SUMMARY | 2023-06-30 22:56 | External Medical Summary | Summary of Care ---
Author Name Unknown Organization [facility] Address [address] [facility] [place] [address] Phone [phone] Care Team Providers Care Dental Laboratory Supervisor Name Role Phone Nichole Lizarraga MD Primary Care Provider + Reason for Visit * Reason Onset Date Comments Test Results Lab 03/25/2023 Encounter Details Date Type Department Care Team (Late st Contact Info) Description 03/25/2023 Telephone Hematology/Oncology [facility] 200 [facility] [place] [address] Aguilar Lizarraga MD 200 [place] [address] Test Results Lab Allergies Active Allergy Reactions [...] mRNA, LNP-s, No Pre serve, 2-Dose Series ([employer]) 01/05/2021,05/07/2020,04/16/2020 COVID-19, LNP-s, No Preserve , Jasbir-sucrose, [...] 03/26/2023 10:15 AM EST Office Visit Hematology/Oncology [facility] [address] [place] [address] Aguilar Lizarraga MD 200 [facility] [place] [address] 06/10/2023 10:30 AM EDT Office Visit Urology, [facility] 132 [place] [address] Chris Royal MD 27 [facility] [address] [place] [address] 06/24/2023 10:40 AM EDT Office Visit Nephrology, [facility] [address] [place] [address] eDmetrius Sherman MD 200 [facility] [place] [address] 06/25/2023 11:30 AM EDT Office Visit Urology, [place] [address] [place] [address] Saul Vargas MD [address] [place] [address] 07/25/2023 11:15 AM EDT Office Visit Hematology/Oncology [facility] 200 [facility] [place] [address] Aguilar Lizarraga MD 200 [facility] [place] [address] 11/12/2023 9:20 AM EDT Office Visit General Internal Medicine [place] [address] [place] [address] Nichole Lizarraga MD [address] [place] [address] Health Maintenance Due Date Last Done Comments Zoster Vaccines (1 of 2) 01/23/1971 Colonoscopy 01/23/1997 Fecal Occult Blood Test 01/23/1997 Sigmoidoscopy 01/23/1997 DTaP,Tdap,and Td Vaccines (2 - Td or Tdap) 09/02/2022 09/02/2012 Albumin/Creatinine Ratio 03/13/2023 03/13/2022, 10/20 CKD PHOS USE SMARTSET 60639 03/13/2023 03/13/2022, 0 11/09/2021 Cologuard 06/09/2023 06/08/2020, 10/25/2016 Colorectal Cancer Screening 06/09/2023 GFR 09/23/2023 03/25/2023, 02/0 02/2023, 03/01/2023, Additional history exists Mammogram 10/12/2023 10/11/2022, 05/0 04/2021, 01/18/2020, Additional history exists Depression Screening 11/07/2023 11/06/2022 CKD HGB USE SMARTSET 01623 03/25/202403/25, 03/25/2023, 03/21/2023, Additional history exists DXA [...] and were consensually agreed upon. Care Teams Dental Laboratory Supervisor Relationship Specialty Start Date End Date Nichole Lizarraga MD 200 [facility] [place] [address] PCP - General Internal Medicine 03/10/12 documented as of this encounter
--- OUTSIDE RECORDS SUMMARY | 2023-06-30 22:56 | External Medical Summary ---
Author Name Unknown Address Unknown Organization K09:[facility] [address] [place] [address] Laboratory Report Ordering Provider Test Date Status KEN RAY 03/25/2023 08:07:30 Final Observation Date Value Abnormality Reference (Units ) Status SYNC LEUKOCYTES IN BLOOD BY AUTOMATED COUNT 03/25/2023 08:07:30 3.58 Below low normal 4.00-10.80 (K/uL) Final Segs 03/25/2023 08:07:30 1.0 Below low normal 40.0-75.0 (%) Final Lymphs % 03/25/2023 08:07:30 64.0 Above high normal 18.0-42.0 (%) Final Monos 03/25/2023 08:07:30 26.3 Above high normal 1.0-11.0 (%) Final Eosinophils 03/25/2023 08:07:30 6.7 Above high normal 0.0-6.0 (%) Final Basos 03/25/2023 08:07:30 2.0 0.0-2.0 (%) Final Absolute Segs 03/25/2023 08:07:30 0.04 Below low normal 1.80-7.70 (K/uL) Final Lymphs, absolute 03/25/2023 08:07:30 2.29 1.00-4.80 (K/ul) Final Monos, Abs 03/25/2023 08:07:30 0.94 0.00-1.10 (K/uL) Final Eos, Abs 03/25/2023 08:07:30 0.24 0.00-0.70 (K/uL) Final Basos, Abs 03/25/2023 08:07:30 0.07 0.00-0.20 (K/uL) Final Performing Location [facility] [place] [place] [address]
--- OUTSIDE RECORDS SUMMARY | 2023-06-30 22:56 | External Medical Summary | Summary of Care ---
Author Name Unknown Organization [facility] Address [address] [facility] [address] Phone [phone] Care Team Providers Care File Drawer Finisher Name Role Phone Nichole Lizarraga MD Primary Care Provider + Reason for Visit * Reason Onset Date Comments Precert Future 03/01/2023 Encounter Details Date Type Department Care Team (Late st Contact Info) Description 03/01/2023 Telephone Hematology/Oncology Treatment, [place] [address] [place] [address] Aguilar Lizarraga MD 200 [place] [address] Precert Future Allergies Active Allergy Reactions Criticality Noted Date Comments Penicillins Edema airway,Rash High 03/10/2012 Last dose age 14 Pollen 01/17/2021 Ragweed 11/05/2022 documented as of this encounter (statuses as of 03/13/2023) Medications Medication Sig Dispensed Refills Start Date [...] as of this encounter (statuses as of 03/13/2023) Active Problems Problem Noted Date Diagnosed Date [...] as of this encounter (statuses as of 03/13/2023) Resolved Problems Problem Noted Date Diagnosed Date Resolved Date Chronic kidney disease, stage 3a 05/29/2021 05/02/2022 Overview: Per CKD protocol Fever 09/13/2015 10/21/2017 Kidney stone on left side Inguinal hernia 10/21/2017 Overview: Surgical repair Neutropenia 10/21/2017 documented as of this encounter (statuses as of 03/13/2023) Immunizations Name Administration Dates Next Due COVID-19 mRNA, LNP-s, No Pre serve, 2-Dose Series ([employer]) 01/05/2021,05/07/2020,04/16/2020 COVID-19, LNP-s, No Preserve , Jasbir-sucrose, [...] encounter Miscellaneous Notes * Telephone Encounter - Ena Talbot OSA [...] PM EST Order received for cisplatin/ gemzar. Sandwich plan built and routed for signature. Waiting for auth. Consent signed 03/01/23. Patient went to have hep B labs drawn; however, these ordered were not released by lab. Nurse education 03/01/23. Patient has appt with urology in [place] 03/05/23- waiting until after this appt for [...] Description 03/21/2023 8:30 AM EST Laboratory Laboratory [facility] [place] [address] [place] [address] [place] [facility] [address] [facility] [place] [address] 03/21/2023 9:30 AM EST Hem/Onc Treatment Hematology/Oncology Treatment, [place] 200 [facility] [place] [address] 06/10/2023 2:30 PM EDT Office Visit Urology, [facility] 132 [facility] [place] [address] Chris Royal MD 27 [facility] 270 [place] [address] 06/24/2023 10:40 AM EDT Office Visit Nephrology, [facility] [address] [place] [address] Demetrius Sherman MD 200 [facility] [place] [address] 06/25/2023 11:30 AM EDT Office Visit Urology, [place] [address] [place], [place] [id number] Saul Vargas MD [address] [place], [place] [address] 07/25/2023 11:15 AM EDT Office Visit Hematology/Oncology [facility] [place] [address] [place] [address] Aguilar Lizarraga MD 200 [facility] [place] [address] 11/12/2023 9:20 AM EDT Office Visit General Internal Medicine [facility] [place] [address] [place] [address] Nichole Lizarraga MD [address] [place] [address] Health Maintenance Due Date Last Done Comments Zoster Vaccines (1 of 2) 01/23/1971 Colonoscopy 01/23/1997 Fecal Occult Blood Test 01/23/1997 Sigmoidoscopy 01/23/1997 DTaP,Tdap,and Td Vaccines (2 - Td or Tdap) 09/02/2022 09/02/2012 Albumin/Creatinine Ratio 03/13/2023 03/13/2022, 10/20 CKD PHOS USE SMARTSET 26039 03/13/2023 03/13/2022, 0 11/09/2021 Cologuard 06/09/2023 06/08/2020, 10/25/2016 Colorectal Cancer Screening 06/09/2023 GFR 08/30/2023 03/01/2023, 01/18, 01/15/2023, Additional history exists Mammogram 10/12/2023 10/11/2022, 05/0 04/2021, 01/18/2020, Additional history exists Depression Screening 11/07/2023 11/06/2022 CKD HGB USE SMARTSET 21975 03/01/202403/01, 03/01/2023, 02/26/2023, Additional history exists DXA [...] and were consensually agreed upon. Care Teams File Drawer Finisher Relationship Specialty Start Date End Date Nichole Lizarraga MD 200 [facility] [place] [address] PCP - General Internal Medicine 03/10/12 documented as of this encounter
--- OUTSIDE RECORDS SUMMARY | 2023-06-30 22:56 | External Medical Summary | Summary of Care ---
Author Name Unknown Organization [facility] Address [address] [facility] [address] Phone [phone] Care Team Providers Care Artillery Maintenance Supervisor Name Role Phone Nichole Lizarraga MD Primary Care Provider + Reason for Visit * Reason Comments Chemotherapy Hold C1D1 cisplatin/ gemzar. Encounter Details Date Type Department Care Team (Late st Contact Info) Description 03/25/2023 9:15 AM EST Hem/Onc Treatment Hematology/Oncology Treatment, [address] [address] [place], Chair [address] [address] Arrived Allergies Active Allergy Reactions Criticality Noted [...] mRNA, LNP-s, No Pre serve, 2-Dose Series ([employer]) 01/05/2021,05/07/2020,04/16/2020 COVID-19, LNP-s, No Preserve , Jasbir-sucrose, Ages 12+ (Pfizer) 09/06/2021 Covid-19, Mrna, Lnp-s, Pf, B ivalent, 30 Mcg, IM, 12 yrs and above (Hex[employer]) 01/31/2022 PPD 02/19/2017 Pneumococcal Conjugate Vacc, 13 [...] as of this encounter Nursing Notes * Chanelle Galeana RN - 03/25/2023 9:42 AM EST Patient arrived for C1D1 cisplatin/ gemzar. After reviewing labs and ANC was 0.04, which is why hertreatment was held last week. Bari texted Dr. Lizarraga and per Dr. Lizarraga going to hold treatment again today, he stated patient can go home. He iis going to talk with nurse specialist and then we will give patient a call to update her on the plan. Patient verbalized understanding. documented in this encounter Plan of Treatment Upcoming Encounters Date Type Department Care Team (Late st Contact Info) Description 06/10/2023 10:30 AM EDT Office Visit Urology, [address] [place] [address] Chris Royal MD 27 [facility] [place] [address] [place] [address] 06/24/2023 10:40 AM EDT Office Visit Nephrology, [facility] 200 [place] [address] Demetrius Sherman MD 200 [place] [address] 06/25/2023 11:30 AM EDT Office Visit Urology, [place] [address] [place] [address] Saul Vargas MD [address] [place] [address] 07/25/2023 11:15 AM EDT Office Visit Hematology/Oncology [facility] 200 [place] [address] Aguilar Lizarraga MD 200 [place] [address] 11/12/2023 9:20 AM EDT Office Visit General Internal Medicine [facility] 200 [facility] [place] [address] Nichole Lizarraga MD 200 [place] [address] Health Maintenance Due Date Last Done Comments Zoster Vaccines (1 of 2) 01/23/1971 Colonoscopy 01/23/1997 Fecal Occult Blood Test 01/23/1997 Sigmoidoscopy 01/23/1997 DTaP,Tdap,and Td Vaccines (2 - Td or Tdap) 09/02/2022 09/02/2012 Albumin/Creatinine Ratio 03/13/2023 03/13/2022, 10/20 CKD PHOS USE SMARTSET 67033 03/13/2023 03/13/2022, 0 11/09/2021 Cologuard 06/09/2023 06/08/2020, 10/25/2016 Colorectal Cancer Screening 06/09/2023 GFR 09/23/2023 03/25/2023, 02/2023, 03/01/2023, Additional history exists Mammogram 10/12/2023 10/11/2022, 050 04/2021, 01/18/2020, Additional history exists Depression Screening 11/07/2023 11/06/2022 CKD HGB USE SMARTSET 30447 03/25/202403/25, 03/25/2023, 03/21/2023, Additional history exists DXA [...] and were consensually agreed upon. Care Teams Artillery Maintenance Supervisor Relationship Specialty Start Date End Date Nichole Lizarraga MD 200 [place] [address] PCP - General Internal Medicine 03/10/12 documented as of this encounter
--- OUTSIDE RECORDS SUMMARY | 2023-06-30 22:56 | External Medical Summary | Summary of Care ---
Author Name Unknown Organization [facility] Address [address] [facility] [place] [address] Phone [phone] Care Team Providers Care Brim Stitcher Name Role Phone Nichole Lizarraga MD Primary Care Provider + Reason for Visit * Reason Comments Outpatient Testing Encounter Details Date Type Department Care Team (Late st Contact Info) Description 03/25/2023 8:10 AM EST Laboratory Laboratory [place] [address] [place] [phone] [place], [facility] [place] [address] [place] [address] Chronic neutropenia (HCC); Large granular lymphocytic leukemia [...] mRNA, LNP-s, No Pre serve, 2-Dose Series ([employer]) 01/05/2021,05/07/2020,04/16/2020 COVID-19, LNP-s, No Preserve , Jasbir-sucrose, [...] 9:15 AM EST Hem/Onc Treatment Hematology/Oncology Treatment, [place] [address] [place] [address] [place], Chair 4 Hem Onc [place] [address] [facility] [address] 06/10/2023 10:30 AM EDT Office Visit Urology, [facility], [place] 132 [facility] [place] [id number] Chris Royal MD 27 [facility] [address] [address] [place] [address] 06/24/2023 10:40 AM EDT Office Visit Nephrology, [facility] 200 [facility] [place] [address] Demetrius Sherman MD 200 [facility] [place] [address] 06/25/2023 11:30 AM EDT Office Visit Urology, [place] [address] [place] [address] Saul aVrgas MD [address] [place] [address] 07/25/2023 11:15 AM EDT Office Visit Hematology/Oncology [facility] 200 [facility] [place] [address] Aguilar Lizarraga MD 200 [facility] [place] [address] 11/12/2023 9:20 AM EDT Office Visit General Internal Medicine [facility] 200 [facility] [place] [address] Nichole Lizarraga MD 200 [facility] [place] [address] Pending Results Name Type Priority Associated Diagnoses Date /Time COMPREHENSIVE METABOLIC PANEL Lab STAT 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) 03/25/2023 8:07 AM EST MAGNESIUM Lab STAT 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) 03/25/2023 8:07 AM EST Health Maintenance Due Date Last Done Comments Zoster Vaccines (1 of 2) 01/23/1971 Colonoscopy 01/23/1997 Fecal Occult Blood Test 01/23/1997 Sigmoidoscopy 01/23/1997 DTaP,Tdap,and Td Vaccines (2 - Td or Tdap) 09/02/2022 09/02/2012 Albumin/Creatinine Ratio 03/13/2023 03/13/2022, 10/20 CKD PHOS USE SMARTSET 87023 03/13/2023 03/13/2022, 0 11/09/2021 Cologuard 06/09/2023 06/08/2020, 10/25/2016 Colorectal Cancer Screening 06/09/2023 GFR 09/19/2023 03/21/2023, 02/18, 01/28/2023, Additional history exists Mammogram 10/12/2023 10/11/2022, 05/0 04/2021, 01/18/2020, Additional history exists Depression Screening 11/07/2023 11/06/2022 CKD HGB USE SMARTSET 07408 03/21/202403/25, 03/25/2023, 03/21/2023, Additional history exists DXA Scan [...] Date/Time Associated Diagnosis Comments DIFFERENTIAL, AUTOMATED STAT 03/25/2023 8:07 AM EST 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) CBC STAT 03/25/2023 8:07 AM EST 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 56-02 Eosinophils % 6.7(H) 0.0 - 6.0 % 03/25/2023 8:17 AM EST [facility]02 Basophils % 2.0 0.0 - 2.0 % 03/25/2023 8:17 AM EST [facility] 56-02 Absolute Neutrophils 0.04(L) 1.80 - 7.70 K/uL 03/25/2023 8:17 AM EST [facility] 56[facility]02 Absolute Lymphocytes 2.29 1.00 - 4.80 K/ul 03/25/2023 8:17 AM EST [facility] 56-02 Absolute Monocytes 0.94 0.00 - 1.10 K/uL 03/25/2023 8:17 AM EST [facility] 56-02 Absolute Eosinophils 0.24 0.00 - 0.70 K/uL 03/25/2023 8:17 AM EST [facility] 56-02 Absolute Basophils 0.07 0.00 - 0.20 K/uL 03/25/2023 8:17 AM EST [facility] 56-02 Blood Venous blood specimen / Unknown Venipuncture / Unknown 03/25/2023 8:07 AM EST 03/25/2023 8:07 AM EST Aguilar Lizarraga MD LAB BLOOD ORDERABLES [facility] 56 [address] [place] [address] * (ABNORMAL) CBC (03/25/2023 8:07 AM EST) WBC 3.58(L) 4.00 - 10.80 K/uL 03/25/2023 8:17 AM EST [facility] 56- RBC 4.13 3.85 - 5.15 M/uL 03/25/2023 8:17 AM EST [facility] 56- HGB 12.2 12.0 - 15.3 g/dL 03/25/2023 8:17 AM EST [facility] 56- HCT 38.3 36.0 - 45.2 % 03/25/2023 8:17 AM [facility] 56- MCV 92.7 81.5 - 97.5 fL 03/25/2023 8:17 AM [facility] 56- MCH 29.5 27.0 - 34.0 pg 03/25/2023 8:17 AM [facility] 56- MCHC 31.9 32.0 - 36.0 g/dL 03/25/2023 8:17 AM [facility] 56- RDW 14.6 11.5 - 15.5 % 03/25/2023 8:17 AM [facility] 56- PLT 154 140 - 400 K/uL 03/25/2023 8:17 AM [facility] 56- MPV 12.0 6.6 - 11.1 fL 03/25/2023 8:17 AM [facility] 56-02 Blood Venous blood specimen / Unknown Venipuncture / Unknown 03/25/2023 8:07 AM EST 03/25/2023 8:07 AM EST Aguilar Lizarraga MD LAB BLOOD ORDERABLES [facility] 56 [address] [place] [address] documented in this encounter Visit Diagnoses Diagnosis Chronic neutropenia [...] and were consensually agreed upon. Care Teams Brim Stitcher Relationship Specialty Start Date End Date Nichole Lizarraga MD [address] [place] [address] [place] [address] PCP - General Internal Medicine 03/10/12 documented as of this encounter
--- OUTSIDE RECORDS SUMMARY | 2023-06-30 22:56 | External Medical Summary ---
Author Name Unknown Address Unknown Organization K09:[facility] 56-02 [address] [place] [address] Laboratory Report Ordering Provider Test Date Status KEN RAY 03/21/2023 08:32:10 Final Observation Date Value Abnormality Reference (Units ) Status BUN 03/21/2023 08:32:10 15 6-20 (mg/dL) Final Creatinine 03/21/2023 08:32:10 1.3 Above high normal 0.5-1.0 (mg/dL) Final Glomerular filtration rate/1.73 sq M.predicted [Volume Rate/Area] in Serum, Plasma or Blood by Creatinine-based formula (CKD-EPI) 03/21/2023 08:32:10 46 Below low normal >=60 (mL/min) Final eGFR is calculated based on the CKD-EPI 2020 equation SODIUM 03/21/2023 08:32:10 139 135-146 (m mol/L) Final Potassium 03/21/2023 08:32:10 4.3 3.5-5.1 (m mol/L) Final Cl 03/21/2023 08:32:10 104 98-107 (mm ol/L) Final CO2 03/21/2023 08:32:10 25 22-32 (mmo l/L) Final Anion gap 03/21/2023 08:32:10 10 7-15 (mmol /L) Final Glucose 03/21/2023 08:32:10 106 70-120 (mg /dL) Final Albumin 03/21/2023 08:32:10 3.6 Below low normal 3.8 -5.0 (g/dL) Final AST (Aspartate aminotransferase) 03/21/2023 08:32:10 15 10-35 (U/L) Fin al Alk Phos 03/21/2023 08:32:10 66 35-130 (U/ L) Final Bilirubin, Total 03/21/2023 08:32:10 0.7 <=1 .2 (mg/dL) Final Calcium 03/21/2023 08:32:10 9.3 8.4-10.2 ( mg/dL) Final Protein 03/21/2023 08:32:10 7.2 6.0-8.3 (g /dL) Final ALT (Alanine aminotransferase) 03/21/2023 08:32:10 7 Below low normal 10-35 (U/L) Final Performing Location [facility] [address] [place] [address]
--- OUTSIDE RECORDS SUMMARY | 2023-06-30 22:56 | External Medical Summary | Summary of Care ---
Author Name Unknown Organization [facility] Address [address] [facility] [place] [address] Phone [phone] Care Team Providers Care Saw Feeder Name Role Phone Nichole Lizarraga MD Primary Care Provider + Reason for Visit * Reason Onset Date Comments Precert Future 03/25/2023 BMBx Encounter Details Date Type Department Care Team (Late st Contact Info) Description 03/25/2023 Telephone Hematology/Oncology [facility] 200 [facility] [place] [address] Aguilar Lizarraga MD 200 [place] [address] Precert Future (BMBx) Allergies Active Allergy Reactions Criticality Noted Date [...] mRNA, LNP-s, No Pre serve, 2-Dose Series ([employer]) 01/05/2021,05/07/2020,04/16/2020 COVID-19, LNP-s, No Preserve , Jasbir-sucrose, [...] Encounter - Dee Brush RN - 03/25/2023 10:01 AM EST ICD-10: d70.9, c91.z Start date: 03/26/23 Drugs: bone marrow biopsy for flow, cyto, fish Physician: Dr Aguilar Lizarraga, SP documented in this encounter Plan of Treatment Upcoming Encounters Date Type Department Care Team (Late st Contact Info) Description 03/26/2023 10:15 AM EST Office Visit Hematology/Oncology [place] 200 [facility] [place] [address] Aguilar Lizarraga MD 200 [facility] [place] [address] 06/10/2023 10:30 AM EDT Office Visit Urology, [facility] 132 [facility] [place] [address] Chris Royal MD [address] [place] [address] 06/24/2023 10:40 AM EDT Office Visit Nephrology, [facility] 200 [facility] [place] [address] Demetrius Sherman MD 200 [facility] [place] [address] 06/25/2023 11:30 AM EDT Office Visit Urology, [place] [address] [place] [address] Saul Vargas MD [address] [place], [place] [phone] 07/25/2023 11:15 AM EDT Office Visit Hematology/Oncology [facility] [place] 200 [facility] [place] [address] Aguilar Lizarraga MD 200 [facility] [place], [place] [address] 11/12/2023 9:20 AM EDT Office Visit General Internal Medicine [facility] [place] [address] [facility] [place] [address] Nichole Lizarraga MD 200 [facility] [place] [address] Health Maintenance Due Date Last Done Comments Zoster Vaccines (1 of 2) 01/23/1971 Colonoscopy 01/23/1997 Fecal Occult Blood Test 01/23/1997 Sigmoidoscopy 01/23/1997 DTaP,Tdap,and Td Vaccines (2 - Td or Tdap) 09/02/2022 09/02/2012 Albumin/Creatinine Ratio 03/13/2023 03/13/2022, 10/20 CKD PHOS USE SMARTSET 73272 03/13/2023 03/13/2022, 0 11/09/2021 Cologuard 06/09/2023 06/08/2020, 10/25/2016 Colorectal Cancer Screening 06/09/2023 GFR 09/23/2023 03/25/2023, 02/0 02/2023, 03/01/2023, Additional history exists Mammogram 10/12/2023 10/11/2022, 05/0 04/2021, 01/18/2020, Additional history exists Depression Screening 11/07/2023 11/06/2022 CKD HGB USE SMARTSET 96027 03/25/202403/25, 03/25/2023, 03/21/2023, Additional history exists DXA [...] and were consensually agreed upon. Care Teams Saw Feeder Relationship Specialty Start Date End Date Nichole Lizarraga MD 200 [facility] [place] [address] PCP - General Internal Medicine 03/10/12 documented as of this encounter
--- OUTSIDE RECORDS SUMMARY | 2023-06-30 22:56 | External Medical Summary | Summary of Care ---
Author Name Unknown Organization [facility] Address [address] [facility] [address] Phone [phone] Care Team Providers Care Crystal Inspector Name Role Phone Nichole Lizarraga MD Primary Care Provider + Reason for Visit * Reason Onset Date Comments Precert Future 03/01/2023 Encounter Details Date Type Department Care Team (Late st Contact Info) Description 03/01/2023 Telephone Hematology/Oncology Treatment, [place] [address] [place] [address] Aguilar Lizarraga MD [address] [place] [address] Precert Future Allergies Active Allergy Reactions Criticality Noted Date Comments Penicillins Edema airway,Rash High 03/10/2012 Last dose age 14 Pollen 01/17/2021 Ragweed 11/05/2022 documented as of this encounter (statuses as of 03/15/2023) Medications Medication Sig Dispensed Refills Start Date [...] as of this encounter (statuses as of 03/15/2023) Active Problems Problem Noted Date Diagnosed Date [...] as of this encounter (statuses as of 03/15/2023) Resolved Problems Problem Noted Date Diagnosed Date Resolved Date Chronic kidney disease, stage 3a 05/29/2021 05/02/2022 Overview: Per CKD protocol Fever 09/13/2015 10/21/2017 Kidney stone on left side Inguinal hernia 10/21/2017 Overview: Surgical repair Neutropenia 10/21/2017 documented as of this encounter (statuses as of 03/15/2023) Immunizations Name Administration Dates Next Due COVID-19 mRNA, LNP-s, No Pre serve, 2-Dose Series ([employer]) 01/05/2021,05/07/2020,04/16/2020 COVID-19, LNP-s, No Preserve , Jasbir-sucrose, [...] PM EST Order received for cisplatin/ gemzar. [place] plan built and routed for signature. Waiting for auth. Consent signed 03/01/23. Patient went to have hep B labs drawn; however, these ordered were not released by lab. Nurse education 03/01/23. Patient has appt with urology in [place] 03/05/23- waiting until after this appt for [...] Description 03/21/2023 8:30 AM EST Laboratory Laboratory [facility] [place] [address] [place] [phone] [facility] [address] [facility] [place] [address] 03/21/2023 9:30 AM EST Hem/Onc Treatment Hematology/Oncology Treatment, [place] 200 [facility] [place] [address] 06/10/2023 10:30 AM EDT Office Visit Urology, [facility] [address] [facility] [place] [address] Chris Royal MD 27 [facility] [address] [place] [address] 06/24/2023 10:40 AM EDT Office Visit Nephrology, [facility] [address] [place] [address] Demetrius Sherman MD 200 [facility] [place] [address] 06/25/2023 11:30 AM EDT Office Visit Urology, [place] [address], [place] [phone] Saul Vargas MD [address], [place] [id number] 07/25/2023 11:15 AM EDT Office Visit Hematology/Oncology [facility] [place] [address] [place] [address] Aguilar Lizarraga MD 200 [facility] [place] [address] 11/12/2023 9:20 AM EDT Office Visit General Internal Medicine [facility] [place] [address] [place] [address] Nichole Lizarraga MD [address] [place] [address] Health Maintenance Due Date Last Done Comments Zoster Vaccines (1 of 2) 01/23/1971 Colonoscopy 01/23/1997 Fecal Occult Blood Test 01/23/1997 Sigmoidoscopy 01/23/1997 DTaP,Tdap,and Td Vaccines (2 - Td or Tdap) 09/02/2022 09/02/2012 Albumin/Creatinine Ratio 03/13/2023 03/13/2022, 10/20 CKD PHOS USE SMARTSET 62551 03/13/2023 03/13/2022, 0 11/09/2021 Cologuard 06/09/2023 06/08/2020, 10/25/2016 Colorectal Cancer Screening 06/09/2023 GFR 08/30/2023 03/01/2023, 01/18, 01/15/2023, Additional history exists Mammogram 10/12/2023 10/11/2022, 05/0 04/2021, 01/18/2020, Additional history exists Depression Screening 11/07/2023 11/06/2022 CKD HGB USE SMARTSET 87665 03/01/202403/01, 03/01/2023, 02/26/2023, Additional history exists DXA [...] and were consensually agreed upon. Care Teams Crystal Inspector Relationship Specialty Start Date End Date Nichole Lizarraga MD 200 [facility] [place] [address] PCP - General Internal Medicine 03/10/12 documented as of this encounter
--- OUTSIDE RECORDS SUMMARY | 2023-06-30 22:56 | External Medical Summary | Summary of Care ---
Author Name Unknown Organization [facility] Address [address] [facility] [address] Phone [phone] Care Team Providers Care Occupational Safety And Health Manager Name Role Phone Nichole Lizarraga MD Primary Care Provider + Reason for Visit * Reason Onset Date Comments Precert Future 03/01/2023 Encounter Details Date Type Department Care Team (Late st Contact Info) Description 03/01/2023 Telephone Hematology/Oncology Treatment, [place] [address] [place] [address] Aguilar Lizarraga MD 200 [place] [address] Precert Future Allergies Active Allergy Reactions Criticality Noted Date Comments Penicillins Edema airway,Rash High 03/10/2012 Last dose age 14 Pollen 01/17/2021 Ragweed 11/05/2022 documented as of this encounter (statuses as of 03/14/2023) Medications Medication Sig Dispensed Refills Start Date [...] as of this encounter (statuses as of 03/14/2023) Active Problems Problem Noted Date Diagnosed Date [...] as of this encounter (statuses as of 03/14/2023) Resolved Problems Problem Noted Date Diagnosed Date Resolved Date Chronic kidney disease, stage 3a 05/29/2021 05/02/2022 Overview: Per CKD protocol Fever 09/13/2015 10/21/2017 Kidney stone on left side Inguinal hernia 10/21/2017 Overview: Surgical repair Neutropenia 10/21/2017 documented as of this encounter (statuses as of 03/14/2023) Immunizations Name Administration Dates Next Due COVID-19 mRNA, LNP-s, No Pre serve, 2-Dose Series ([employer]) 01/05/2021,05/07/2020,04/16/2020 COVID-19, LNP-s, No Preserve , [...] PM EST Order received for cisplatin/ gemzar. May plan built and routed for signature. Waiting for auth. Consent signed 03/01/23. Patient went to have hep B labs drawn; however, these ordered were not released by lab. Nurse education 03/01/23. Patient has appt with urology in [place] 03/05/23- waiting until after this appt for [...] 03/21/2023 8:30 AM EST Laboratory Laboratory [facility] [place] [address] [place] [phone] [place] [facility] [address] [facility] [place] [address] 03/21/2023 9:30 AM EST Hem/Onc Treatment Hematology/Oncology Treatment, [place] 200 [facility] [place] [address] 06/10/2023 2:30 PM EDT Office Visit Urology, [facility] [address] [place] [address] Chris Royal MD 27 [facility] [address] [place] [address] 06/24/2023 10:40 AM EDT Office Visit Nephrology, [facility] [address] [place] [address] Demetrius Sherman MD 200 [facility] [place] [address] 06/25/2023 11:30 AM EDT Office Visit Urology, [place] [address] [place], [place] [phone] Saul Vargas MD [address] [place], [place] [phone] 07/25/2023 11:15 AM EDT Office Visit Hematology/Oncology [facility] [place] [address] [place] [address] Aguilar Lizarraga MD 200 [facility] [place] [address] 11/12/2023 9:20 AM EDT Office Visit General Internal Medicine [facility] [place] [address] [place] [address] Nichole Lizarraga MD [address] [place] [address] Health Maintenance Due Date Last Done Comments Zoster Vaccines (1 of 2) 01/23/1971 Colonoscopy 01/23/1997 Fecal Occult Blood Test 01/23/1997 Sigmoidoscopy 01/23/1997 DTaP,Tdap,and Td Vaccines (2 - Td or Tdap) 09/02/2022 09/02/2012 Albumin/Creatinine Ratio 03/13/2023 03/13/2022, 10/20 CKD PHOS USE SMARTSET 10512 03/13/2023 03/13/2022, 0 11/09/2021 Cologuard 06/09/2023 06/08/2020, 10/25/2016 Colorectal Cancer Screening 06/09/2023 GFR 08/30/2023 03/01/2023, 01/18, 01/15/2023, Additional history exists Mammogram 10/12/2023 10/11/2022, 05/0 04/2021, 01/18/2020, Additional history exists Depression Screening 11/07/2023 11/06/2022 CKD HGB USE SMARTSET 36768 03/01/202403/01, 03/01/2023, 02/26/2023, Additional history exists DXA [...] and were consensually agreed upon. Care Teams Occupational Safety And Health Manager Relationship Specialty Start Date End Date Nichole Lizarraga MD 200 [facility] [place] [address] PCP - General Internal Medicine 03/10/12 documented as of this encounter
--- OUTSIDE RECORDS SUMMARY | 2023-06-30 22:57 | External Medical Summary ---
Author Name Unknown Address Unknown Organization [id number][facility] [place] [address] [place] [address] Laboratory Report Ordering Provider Test Date Status KEN RAY 03/05/2023 12:45:29 Final Observation Date Value Abnormality Reference (Units ) Status Hepatitis B virus core Ab [Presence] in Serum 03/05/2023 12:45:29 Negative Negative Final Performing Location [facility] - [address] [place] [id number]
--- OUTSIDE RECORDS SUMMARY | 2023-06-30 22:57 | External Medical Summary | Summary of Care ---
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)* Allergies Active Allergy Reactions Criticality Noted Date Comments Penicillins Edema airway,Rash High 03/10/2012 Last dose age 14 Pollen 01/17/2021 Ragweed 11/05/2022 documented as of this encounter (statuses as of 03/07/2023) Medications Medication Sig Dispensed Refills Start Date [...] syringe) 4 days a week throughout chemotherapy 3.2 mL 5 03/01/2023 Active documented as of this encounter (statuses as of 03/07/2023) Active Problems Problem Noted Date Diagnosed Date [...] as of this encounter (statuses as of 03/07/2023) Resolved Problems Problem Noted Date Diagnosed Date Resolved Date Chronic kidney disease, stage 3a 05/29/2021 05/02/2022 Overview: Per CKD protocol Fever 09/13/2015 10/21/2017 Kidney stone on left side Inguinal hernia 10/21/2017 Overview: Surgical repair Neutropenia 10/21/2017 documented as of this encounter (statuses as of 03/07/2023) Immunizations Name Administration Dates Next Due COVID-19 mRNA, LNP-s, No Pre serve, 2-Dose Series (Spritz) 01/05/2021,05/07/2020,04/16/2020 COVID-19, LNP-s, No Preserve , Jasbir-sucrose, Ages 12+ (Spritz) 09/06/2021 Covid-19, Mrna, Lnp-s, Pf, B ivalent, [...] Sign Reading Time Taken Comments Blood Pressure 125/85 03/05/2023 11:10 AM EST Pulse 86 03/05/2023 11:10 AM EST Temperature 36.3 C (97.3 F) 03/05/2023 11:[address] Respiratory Rate - - Oxygen Saturation - - Inhaled Oxygen Concentration - - Weight 55.3 kg (122 lb) 03/05/2023 11:10 AM EST Height - - Body Mass Index 19.84 03/01/2023 8:36 AM EST documented in this encounter Progress Notes * Saul Vargas MD - 03/07/2023 3:13 PM EST Urology Clinic Visit I have reviewed the advanced practitioner's documentation and agree with the plan of care. I acceptthe responsibility for the associated risk. 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 I have independently reviewed the CT urogram from 12/2022, and agree with the report that there hillary enhancing mass at the dome of the bladder, there was no right hydronephrosis, left kidney is surgically absent, there was no pelvic or retroperitoneal lymphadenopathy. CT of her chest showed no metastatic disease. She presents today with her to discuss management options. She is already seen Dr. Lizarraga inMedical Oncology who is recommending neoadjuvant chemotherapy. I agree with this. Her functional status is excellent. 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 Her only prior abdominal operation is the left nephroureterectomy. EXAM BP 125/85 (BP Site: Left Arm, BP Position: Sitting, BP Cuff Size: Regular) | Pulse 86 | Temp 36.3 C (97.3 F) (Tympanic) | Wt 55.3 kg (122 lb) | BMI 19.84 kg/m | BSA 1.6 m GEN: in NAD ABD: LLQ gardiner incision well-healed, soft non-tender, non-distended A/P: 73F with [id number] high-grae urothelial carcinoma of the bladder with sarcomatoid and squamous differentiation. I had a long discussion with the patient and her . I discussed the natural history of muscleinvasive bladder cancer. I discussed she has apparently localized disease with the potential for cure. We discussed all options including neoadjuvant chemotherapy followed by radical cystectomy, radical cystectomy alone, maximal TURBT and chemoradiation therapy, and observation. In her case given the variant histology and history of upper tract disease, I recommended neoadjuvant chemotherapy followed by radical cystectomy. She understands that if her GFR declines and she has no longer candidatefor chemotherapy, we will proceed with cystectomy. I discussed the pathological findings of the procedure with the patient. We discussed the natural history of muscle-invasive bladder cancer and the standard of care which consists of neoadjuvant chemotherapy with gemcitabine/cisplatin, MVAC or dose-dense MVAC, followed by radical cystectomy and urinary diversion. We discussed the 5% overall survival benefit from meta-analyses of clinical trials. Will make a referral to medical oncology for further discussion. Based on the patient's performance status and overall health, I recommended a radical cystectomy with anterior pelvic exenteration with ileal conduit urinary diversion. We discussed the risks of bleeding, infection, sepsis, urine leak, bowel leak and bowel obstruction, rectal injury requiring temporary or permanent colostomy, ureteral strictures, stoma stenosis or dehiscence, lymphatic leak and lymphoceles, and the need for repeat procedures or re-operation. I also discussed the possibility that this may not cure the disease and further therapy will be required. She was in agreement with this plan. She will start neoadjuvant chemotherapy with Dr. Lizarraga in Medical Oncology. I will see her back in 3-4 months for surgical planning. I spent a total of 40-54 minutes (exact time 75 minutes) on the date of service in preparation, delivery, and documentation of the care provided to Linsey Estrella excluding any time spent in theperformance of separately billed services. Saul Vargas MD FACS * Kin Joseph PA-Marielos - 03/05/2023 11:01 AM EST PCP: NICHOLE LIZARRAGA[address] [address] [phone] HPI: Linsey Estrella MR# [id number] is a 73 year old female presents in consultation from Dr. Chris Royal(Urology)for evaluation of high-grade, muscle invasive urothelial malignancy with sarcomatoid and squamous differentiation at the dome on recent TURBT for 3 cm anterior bladder tumor on 02/04/[address] Royal. She has a h/o bladder Carcinoma In Situ diagnosed 12/2020 s/p intravesicular BCG x 6 weeks in early 2021 followed with 1 year maintenance intravesicular BCG treatments. Also notedto have h/o upper urinary tract urothelial malignancy s/p left nephroureterectomy 02/01/2021--path showing- invasive urothelial carcinoma high-grade involving the left ureter, involving muscularis propria, lymphovascular invasion noted, 1 lymph node negative for metastatic disease. Father with h/o pancreatic cancer. No family history of bladder cancer or kidney cancer. Longstanding history of neutropenia since 2012 currently receiving Zyrtec CO injection 4 days weekly(since 01/2022) at the direction of Dr. Lizarraga in Hematology/Oncology. She was recently seen by Dr. Lizarraga as follow-up who recommended neoadjuvant chemotherapy with gemcitabine and cisplatin for her mu scle invasive bladder cancer. Prior history of right inguinal hernia surgery. She has a longstanding history of urinary urgency, frequency and nocturia which he is currently on VESIcare 5 mg daily. Reports currently her symptoms are very mild at this time. She does deal with occasional urinary urgency however her urinary frequency and nocturia symptoms have significantly improved. She currently denies any fever, chills, change in weight or appetite, dysuria, gross hematuria, incomplete bladder emptying sensation, urinary incontinence TURBT of the anterior bladder tumor on 02/04/2023 pathology: -high-grade invasive urothelial carcinoma with sarcomatoid features and focal squamous differentiation. -Muscularis propria present and is involved. - Lymphovascular invasion identified. Review of patient's allergies indicates: Allergen Reactions Penicillins Edema airway and Rash Last dose age 14 Pollen Ragweed Current Outpatient Medications Medication Sig Dispense Refill [...] 2 TIMES A DAY. 90 mL 3 Zarxio 300 MCG/0.5ML Injection Solution Prefilled Syringe (Filgrastim-sndz) Inject 300 mcg (1 syringe) under the skin for 4 days a week 8 mL 5 Sulfamethoxazole-Trimethoprim 800-160 MG Oral Tablet (Bactrim DS) Take 1 Tablet by mouth in the morning and 1 Tablet before bedtime. 6 Tablet 0 Phenazopyridine HCl 200 MG Oral Tablet (Pyridium) Take 1 Tablet by mouth 3 times a day as needed for Other (bladder spasms). After meals. 15 Tablet 0 Ondansetron HCl 8 MG Oral Tablet (Zofran) Take 1 Tablet by mouth every 8 hours as needed for Nausea. 30 Tablet 2 Prochlorperazine Maleate 10 MG Oral Tablet (Compazine) Take 1 Tablet by mouth every 6 hours as needed for Nausea. 30 Tablet 2 Filgrastim-sndz 480 MCG/0.8ML Injection Solution Prefilled Syringe (Zarxio) Administer 480mcg (1 syringe) 4 days a week throughout chemotherapy 3.2 mL 5 No current facility-administered medications for this visit. 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 Encounter for antineoplastic chemotherapy Z51.11 Past Medical History: Diagnosis Date Inguinal hernia 02/18/1999 Surgical repair Kidney stone on left side 02/19/1996 Leukemia (HCC) Large granular lymphocytic leukemia Neutropenia (HCC) PONV (postoperative nausea and vomiting) Past Surgical History: Procedure Laterality Date CYSTOSCOPY/TREAT MINOR LESION(S) N/A 01/09/2021 CYSTOURETHROSCOPY WITH FULGURATION MINOR BLADDER TUMOR performed by Chris Royal MD at OR [facility] CYSTOSCOPY/TREAT MINOR LESION(S) N/A 06/05/2021 CYSTOURETHROSCOPY WITH FULGURATION MINOR BLADDER TUMOR performed by Chris Royal MD at OR [facility] CYSTOSCOPY/TREAT SML BLADDER TUMOR N/A 02/04/2023 CYSTOURETHROSCOPY WITH FULGURATION SMALL BLADDER TUMOR [facility]EDURE NEC INCISION OF WINDPE, PLANNED Left 02/04/2017 TRACHEOSTOMY PLANNED performed [place] Nick Singh [place] [facility] [place] 02/04/2017 never had a trach INFORMATION 1989 kidney stone removal LAPARO REMOVE K/URETER Left 02/01/2021 LAPAROSCOPIC NEPHRECTOMY TOTAL URETERECTOMY performed by Chris Royal MD at OR [facility] LARYNGOSCOPY, VOCAL CORD EXCISION/STRIPPING Left 02/04/2017 LARYNGOSCOPY DIRECT STRIPPING VOCAL CORD WITH MICROSCOPE performed by Nick Singh DO [place] [facility] [place] [...] history Social History Socioeconomic History Marital status: Tobacco Use Smoking status: Never Smokeless tobacco: Never Vaping Use Vaping Use: Never used Substance and Sexual Activity Alcohol use: Yes Alcohol/week: 4.2 standard drinks of alcohol Types: 5 5 oz of wine per week Comment: occ Drug use: No Sexual activity: Yes Partners: Male Social Determinants of Health Food Insecurity: No Food Insecurity (10/21/2018) Hunger Vital Sign Worried About Running Out of Food in the Last Year: Never true Ran Out of Food in the Last Year: Never true Review of Systems: CONSTITUTIONAL: Denies fatigue, night sweats SKIN: Denies rash, erythema NEURO: Denies headache, dizziness, slurred speech, seizure, stroke EENT: Denies visual changes, hearing loss, tinnitus, epistaxis CARDIAC: Denies recent chest pain, palpitation, murmur, CHF RESPIRATORY: Denies SOB, Asthma, emphysema, wheezing, cough GI: Denies nausea, vomiting, diarrhea, constipation : see HPI ENDOCRINE: Denies hot/cold intolerance, hair loss, brittle nails MUSCULOSKELETAL: Denies muscle weakness, swelling HEMATOLOGIC: Denies prior h/o DVT, spontaneous bruising PSYCHOLOGICAL: Denies h/o panic attacks, bipolar disorder ALL OTHER SYSTEMS NEGATIVE PHYSICAL EXAM: BP 125/85 (BP Site: Left Arm, BP Position: Sitting, BP Cuff Size: Regular) | Pulse 86 | Temp 36.3 C (97.3 F) (Tympanic) | Wt 55.3 kg (122 lb) | BMI 19.84 kg/m | BSA 1.6 m General: alert, no distress,well developed,well nourished,cooperative HEENT: unremarkable, EOMI, mucus membranes moist, sclera anicteric, no hearing impairment, patient wears glasses Neck: no masses Heart: regular rate & rhythm, no murmur, and no gallops Lungs: chest symmetric with normal AP diameter, no chest deformities noted, no chest wall tenderness, lungs clear to auscultation ABDOMEN: Soft, non-tender. BS normal, No masses, organomegaly BACK: No costo-vertebral angle tenderness Extremities: no edema, no skin discoloration, no clubbing, no cyanosis Neuro: alert & oriented x 3 with fluent speech, no focal motor/sensory deficits, gait normal LABS: Latest Reference Range & Units 08/23/22 09:56 01/15/23 14:04 01/28/23 10:54 03/01/23 10:22 Sodium 135 - 146 mmol/L 140 142 Potassium 3.5 - 5.1 mmol/L 4.3 4.1 Chloride 98 - 107 mmol/L 106 107 CO2 22 - 32 mmol/L 25 27 BUN 6 - 20 mg/dL 17 12 Creatinine 0.5 - 1.0 mg/dL 1.4 (H) 1.2 (H) 1.3 (H) 1.3 (H) Estimated Glomerular Filtration Rate >=60 mL/min 42 (L) 47 (L) 44 (L) 45 (L) Anion Gap 7 - 15 mmol/L 9 8 Glucose 70 - 120 mg/dL 96 99 Calcium 8.4 - 10.2 mg/dL 9.2 9.3 Magnesium 1.5 - 2.6 mg/dL 2.2 Protein 6.0 - 8.3 g/dL 7.1 7.2 Latest Reference Range & Units 12/13/22 15:53 01/28/23 10:54 02/26/23 13:01 03/01/23 10:22 WBC 4.00 - 10.80 K/uL 5.78 4.56 5.82 4.01 HGB 12.0 - 15.3 g/dL 12.5 14.2 13.7 13.3 HCT 36.0 - 45.2 % 38.7 43.6 42.1 41.3 MCV 81.5 - 97.5 fL 91.5 90.6 91.1 91.6 PLT 140 - 400 K/uL 163 117 (L) 165 160 RADIOLOGY: Chest CT 02/26/2023 LUNGS: Stable curvilinear thickening in the right upper lobe. CT scan abd/pelvis with/without contrast 01/16/2023: ADRENALS: Unremarkable KIDNEYS/URETERS: Left nephro ureterectomy. No mass at the left renal fossa. Four cysts right kidneylargest 1.5 cm similar compared with the prior study. No enhancing lesions or filling defects of the intrarenal collecting system right kidney of the upper or middle 3rd of the right ureter. The lower 3rd of the right ureter is not opacified with contrast, although no obvious enhancing mass on arterial phase imaging and no right ureteral obstruction. BLADDER: 1.6 x 1.6 cm rounded structure of the bladder dome at the midline as measured on the axialimages exhibits enhancement, particularly peripheral enhancement, is increased in size since the prior study by my measurements, and is associated with enhancing wall thickening of the bladder dome. Measuring in the fashion with which it was measured previously on the sagittal images, it now measures 2.1 x 1.5 cm, increased. Gas bubbles within the urinary bladder compatible with recent catheterization or instrumentation or infection. Impression: Linsey Estrella is a 73 year old female with: 1. high-grade, muscle invasive urothelial malignancy with sarcomatoid and squamous differentiation status post recent TURBT 02/06/2023 with longstanding history of Carcinoma in Situ of the bladder initially diagnosed 12/2020 2. History of high-grade muscle invasive urothelial carcinoma of the left ureter status post left nephroureterectomy 01/2021 3. Non bothersome urinary frequency/urgency/nocturia currently on VESIcare 5 mg daily 4. Chronic history of neutropenia currently on Zarxio injections 4 days weekly Plan: 1. Dr. Hernandez reviewed pathology as well as discussed options with patient and regarding her high-grade muscle invasive bladder cancer. Recommend neoadjuvant chemotherapy along with cystectomy. Please see his note for details 2. Return 3-4 months follow-up with Dr. Vargas--this will allow adequate time to receive chemotherapy I spent a total of 40-54 minutes (exact time 45 mins) on the date of service in preparation, delivery, and documentation of the care provided to Linsey Estrella excluding any time spent in the performance of separately billed services. Patient was seen and examined with Dr. Saul Joseph PA-C 11:02 AM 03/05/2023 documented in this encounter Plan of Treatment Upcoming Encounters Date Type Department Care Team (Late st Contact Info) Description 06/10/2023 2:30 PM EDT Office Visit Urology, [facility] [address] [facility] [place] [address] Chris Royal MD [address] [facility] [address] [place] [address] 06/24/2023 10:40 AM EDT Office Visit Nephrology, [facility] [address] [place] [address] Demetrius Sherman MD [address] [place] [address] 06/25/2023 11:30 AM EDT Office Visit Urology, [place] [address] [place] [address] Saul Vargas MD [address] [place] [address] 07/25/2023 11:15 AM EDT Office Visit Hematology/Oncology [facility] [address] [place] [address] Flor Lizarraga MD [address] [place] [address] 11/12/2023 9:20 AM EDT Office Visit General Internal Medicine [facility] [address] [place] [address] Nichole Lizarraga MD [address] [facility] [place] [address] Scheduled Referrals Name Type Priority Associated Diagnoses Orde r Schedule UROLOGY REFERRAL OP Referral Within 10 da ys (routine) 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) Ordered: 02/07/2023 Health Maintenance Due Date Last Done Comments Zoster Vaccines (1 of 2) 01/23/1971 Colonoscopy 01/23/1997 Fecal Occult Blood Test 01/23/1997 Sigmoidoscopy 01/23/1997 DTaP,Tdap,and Td Vaccines (2 - Td or Tdap) 09/02/2022 09/02/2012 Albumin/Creatinine Ratio 03/13/2023 03/13/2022, 10/20 CKD PHOS USE SMARTSET 70548 03/13/2023 03/13/2022, 0 11/09/2021 Cologuard 06/09/2023 06/08/2020, 10/25/2016 Colorectal Cancer Screening 06/09/2023 GFR 08/30/2023 03/01/2023, 01/18, 01/15/2023, Additional history exists Mammogram 10/12/2023 10/11/2022, 05/0 04/2021, 01/18/2020, Additional history exists Depression Screening 11/07/2023 11/06/2022 CKD HGB USE SMARTSET 04238 03/01/202403/01, 03/01/2023, 02/26/2023, Additional history exists DXA [...] and were consensually agreed upon. Care Teams Instrument Repairer Steam Plant Relationship Specialty Start Date End Date Nichole Lizarraga MD [address] [facility] [place] [address] PCP - General Internal Medicine 03/10/12 documented as of this encounter
--- OUTSIDE RECORDS SUMMARY | 2023-06-30 22:57 | External Medical Summary | Summary of Care ---
Author Name Unknown Organization [facility] Address [address] [facility] [address] Phone [phone] Care Team Providers Care Core Blower Name Role Phone Nichole Lizarraga MD Primary Care Provider + Reason for Visit * Reason Onset Date Comments Precert Future 03/01/2023 Encounter Details Date Type Department Care Team (Late st Contact Info) Description 03/01/2023 Telephone Hematology/Oncology Treatment, [place] [address] [place] [address] Aguilar Lizarraga MD [address] [place] [address] Precert Future Allergies Active Allergy Reactions Criticality [...] mRNA, LNP-s, No Pre serve, 2-Dose Series (WeStudy.In) 01/05/2021,05/07/2020,04/16/2020 COVID-19, LNP-s, No Preserve , Jasbir-sucrose, [...] scheduled for. She is agreeable to scheduling. * Telephone Encounter - Ena Talbot OSA [...] PM EST Order received for cisplatin/ gemzar. [place] plan built and routed for signature. Waiting for auth. Consent signed 03/01/23. Patient went to have hep B labs drawn; however, these ordered were not released by lab. Nurse education 03/01/23. Patient has appt with urology in [place] 03/05/23- waiting until after this appt for [...] 06/10/2023 2:30 PM EDT Office Visit Urology, [facility] [address] [facility] [place] [address] Chris Royal MD [address] [facility] [address] [place] [address] 06/24/2023 10:40 AM EDT Office Visit Nephrology, [facility] [address] [facility] [place] [address] Demetrius Sherman MD [address] [facility] [place] [address] 06/25/2023 11:30 AM EDT Office Visit Urology, [place] [address] [place] [address] Saul Vargas MD [address] [place] [address] 07/25/2023 11:15 AM EDT Office Visit Hematology/Oncology [facility] [place] [address] [facility] [place] [address] Aguilar Lizarraga MD [address] [facility] [place] [address] 11/12/2023 9:20 AM EDT Office Visit General Internal Medicine [facility] [address] [facility] [place] [address] Nichole Lizarraga MD [address] [facility] [place] [address] Health Maintenance Due Date Last Done Comments Zoster Vaccines (1 of 2) 01/23/1971 Colonoscopy 01/23/1997 Fecal Occult Blood Test 01/23/1997 Sigmoidoscopy 01/23/1997 DTaP,Tdap,and Td Vaccines (2 - Td or Tdap) 09/02/2022 09/02/2012 Albumin/Creatinine Ratio 03/13/2023 03/13/2022, 10/20 CKD PHOS USE SMARTSET 31038 03/13/2023 03/13/2022, 0 11/09/2021 Cologuard 06/09/2023 06/08/2020, 10/25/2016 Colorectal Cancer Screening 06/09/2023 GFR 08/30/2023 03/01/2023, 01/18, 01/15/2023, Additional history exists Mammogram 10/12/2023 10/11/2022, 05/0 04/2021, 01/18/2020, Additional history exists Depression Screening 11/07/2023 11/06/2022 CKD HGB USE SMARTSET 01102 03/01/202403/01, 03/01/2023, 02/26/2023, Additional history exists DXA [...] and were consensually agreed upon. Care Teams Core Blower Relationship Specialty Start Date End Date Nichole Lizarraga MD [address] [facility] [place] [address] PCP - General Internal Medicine 03/10/12 documented as of this encounter
--- OUTSIDE RECORDS SUMMARY | 2023-06-30 22:57 | External Medical Summary | Summary of Care ---
Author Name Unknown Organization [facility] Address [address] [facility] [address] Phone [phone] Care Team Providers Care Auditing Manager Name Role Phone Nichole Lizarraga MD Primary Care Provider + Reason for Visit * Reason Onset Date Comments Precert Future 03/01/2023 Encounter Details Date Type Department Care Team (Late st Contact Info) Description 03/01/2023 Telephone Hematology/Oncology Treatment, [place] [address] [place] [address] Aguilar Lizarraga MD 200 [place] [address] Precert Future Allergies Active Allergy Reactions Criticality Noted Date Comments Penicillins Edema airway,Rash High 03/10/2012 Last dose age 14 Pollen 01/17/2021 Ragweed 11/05/2022 documented as of this encounter (statuses as of 03/12/2023) Medications Medication Sig Dispensed Refills Start Date [...] as of this encounter (statuses as of 03/12/2023) Active Problems Problem Noted Date Diagnosed Date [...] as of this encounter (statuses as of 03/12/2023) Resolved Problems Problem Noted Date Diagnosed Date Resolved Date Chronic kidney disease, stage 3a 05/29/2021 05/02/2022 Overview: Per CKD protocol Fever 09/13/2015 10/21/2017 Kidney stone on left side Inguinal hernia 10/21/2017 Overview: Surgical repair Neutropenia 10/21/2017 documented as of this encounter (statuses as of 03/12/2023) Immunizations Name Administration Dates Next Due COVID-19 mRNA, LNP-s, No Pre serve, 2-Dose Series (Semant.io) 01/05/2021,05/07/2020,04/16/2020 COVID-19, LNP-s, No Preserve , Jasbir-sucrose, [...] PM EST Order received for cisplatin/ gemzar. [place] plan built and routed for signature. Waiting for auth. Consent signed 03/01/23. Patient went to have hep B labs drawn; however, these ordered were not released by lab. Nurse education 03/01/23. Patient has appt with urology in [place] 03/05/23- waiting until after this appt for [...] 06/10/2023 2:30 PM EDT Office Visit Urology, [facility] [address] [place] [address] Chris Royal MD 27 [facility] [address] [place] [address] 06/24/2023 10:40 AM EDT Office Visit Nephrology, [facility] 200 [facility] [address] Demetrius Sherman MD 200 [facility] [address] 06/25/2023 11:30 AM EDT Office Visit Urology, [place] [address] [place] [address] Saul Vargas MD [address] [place], [place] [address] 07/25/2023 11:15 AM EDT Office Visit Hematology/Oncology [facility] 200 [facility] [address] Aguilar Lizarraga MD 200 [facility] [address] 11/12/2023 9:20 AM EDT Office Visit General Internal Medicine [facility] [address] [place], [place] [address] Nichole Lizarraga MD [address] [place] [address] Health Maintenance Due Date Last Done Comments Zoster Vaccines (1 of 2) 01/23/1971 Colonoscopy 01/23/1997 Fecal Occult Blood Test 01/23/1997 Sigmoidoscopy 01/23/1997 DTaP,Tdap,and Td Vaccines (2 - Td or Tdap) 09/02/2022 09/02/2012 Albumin/Creatinine Ratio 03/13/2023 03/13/2022, 10/20 CKD PHOS USE SMARTSET 23049 03/13/2023 03/13/2022, 0 11/09/2021 Cologuard 06/09/2023 06/08/2020, 10/25/2016 Colorectal Cancer Screening 06/09/2023 GFR 08/30/2023 03/01/2023, 01/18, 01/15/2023, Additional history exists Mammogram 10/12/2023 10/11/2022, 05/0 04/2021, 01/18/2020, Additional history exists Depression Screening 11/07/2023 11/06/2022 CKD HGB USE SMARTSET 32092 03/01/202403/01, 03/01/2023, 02/26/2023, Additional history exists DXA [...] and were consensually agreed upon. Care Teams Auditing Manager Relationship Specialty Start Date End Date Nichole Lizarraga MD [address] [place] [address] PCP - General Internal Medicine 03/10/12 documented as of this encounter
--- OUTSIDE RECORDS SUMMARY | 2023-06-30 22:57 | External Medical Summary | Summary of Care ---
Author Name Unknown Organization [facility] Address [address] [facility] [address] Phone [phone] Care Team Providers Care Human Resources Associate Name Role Phone Nichole Lizarraga MD Primary Care Provider + Reason for Visit * Reason Onset Date Comments Precert Future 03/01/2023 Encounter Details Date Type Department Care Team (Late st Contact Info) Description 03/01/2023 Telephone Hematology/Oncology Treatment, [place] [address] [place] [address] Aguilar Lizarraga MD 200 [place] [address] Precert Future Allergies Active Allergy Reactions Criticality Noted Date Comments Penicillins Edema airway,Rash High 03/10/2012 Last dose age 14 Pollen 01/17/2021 Ragweed 11/05/2022 documented as of this encounter (statuses as of 03/04/2023) Medications Medication Sig Dispensed Refills Start Date [...] 06/21/2022 Active Azelastine HCl 137 MCG/SPRAY Nasal SolutionIndications :Chronic sinusitis, unspecified location ADMINISTER 1 SPRAY INTO NOSTRIL 2 TIMES A DAY. 90 mL 3 09/10/2022 Active Zarxio 300 MCG/0.5ML Injection Solution Prefilled Syringe (Filgrastim-sndz)In dications:Chronic neutropenia (HCC),Large granular lymphocytic leukemia (HCC) Inject 300 mcg (1 syringe) under the skin for 4 days a week 8 mL 5 12/04/2022 Active Sulfamethoxazole-Tr imethoprim 800-160 MG Oral Tablet (Bactrim DS) Take 1 Tablet by mouth in the morning and 1 Tablet before bedtime. 6 Tablet 0 02/04/2023 Active Additional Information Patient not taking.Reported on 03/01/2023 Phenazopyridine HCl 200 MG Oral Tablet (Pyridium) [...] as of this encounter (statuses as of 03/04/2023) Active Problems Problem Noted Date Diagnosed Date [...] as of this encounter (statuses as of 03/04/2023) Resolved Problems Problem Noted Date Diagnosed Date Resolved Date Chronic kidney disease, stage 3a 05/29/2021 05/02/2022 Overview: Per CKD protocol Fever 09/13/2015 10/21/2017 Kidney stone on left side Inguinal hernia 10/21/2017 Overview: Surgical repair Neutropenia 10/21/2017 documented as of this encounter (statuses as of 03/04/2023) Immunizations Name Administration Dates Next Due COVID-19 mRNA, LNP-s, No Pre serve, 2-Dose Series ([employer]) 01/05/2021,05/07/2020,04/16/2020 COVID-19, LNP-s, No Preserve , Jasbir-sucrose, [...] PM EST Order received for cisplatin/ gemzar. [place] plan built and routed for signature. Waiting for auth. Consent signed 03/01/23. Patient went to have hep B labs drawn; however, these ordered were not released by lab. Nurse education 03/01/23. Patient has appt with urology in [place] 03/05/23- waiting until after this appt for [...] Team (Late st Contact Info) Description 03/05/2023 11:15 AM EST Office Visit Urology, [place] [address] [facility] [place] [id number] Saul Vargas MD [address] [place] [address] 06/10/2023 2:30 PM EDT Office Visit Urology, [facility] [address] [facility] [place] [address] Chris Royal MD [address] [facility] [place] [address] [place] [address] 06/24/2023 10:40 AM EDT Office Visit Nephrology, [facility] 200 [facility] [place] [address] Demetrius Sherman MD 200 [facility] [place] [address] 07/25/2023 11:15 AM EDT Office Visit Hematology/Oncology [facility] 200 [facility] [place] [address] Aguilar Lizarraga MD 200 [facility] [place] [address] 11/12/2023 9:20 AM EDT Office Visit General Internal Medicine [facility] 200 [facility] [place] [address] Nichole Lizarraga MD 200 [facility] [place] [address] Health Maintenance Due Date Last Done Comments Zoster Vaccines (1 of 2) 01/23/1971 Colonoscopy 01/23/1997 Fecal Occult Blood Test 01/23/1997 Sigmoidoscopy 01/23/1997 DTaP,Tdap,and Td Vaccines (2 - Td or Tdap) 09/02/2022 09/02/2012 Albumin/Creatinine Ratio 03/13/2023 03/13/2022, 10/20 CKD PHOS USE SMARTSET 38480 03/13/2023 03/13/2022, 0 11/09/2021 Cologuard 06/09/2023 06/08/2020, 10/25/2016 Colorectal Cancer Screening 06/09/2023 GFR 08/30/2023 03/01/2023, 01/18, 01/15/2023, Additional history exists Mammogram 10/12/2023 10/11/2022, 05/0 04/2021, 01/18/2020, Additional history exists Depression Screening 11/07/2023 11/06/2022 CKD HGB USE SMARTSET 03266 03/01/202403/01, 03/01/2023, 02/26/2023, Additional history exists DXA [...] and were consensually agreed upon. Care Teams Human Resources Associate Relationship Specialty Start Date End Date Nichole Lizarraga MD [address] [place] [address] PCP - General Internal Medicine 03/10/12 documented as of this encounter
--- OUTSIDE RECORDS SUMMARY | 2023-06-30 22:57 | External Medical Summary | Summary of Care ---
Author Name Unknown Organization [facility] Address [address] [facility] [address] Phone [phone] Care Team Providers Care Edi Programmer Analyst Name Role Phone Nichole Lizarraga MD Primary Care Provider + Reason for Visit * Reason Onset Date Comments Precert Future 03/01/2023 Encounter Details Date Type Department Care Team (Late st Contact Info) Description 03/01/2023 Telephone Hematology/Oncology Treatment, [place] [address] [place] [address] Aguilar Lizarraga MD 200 [place] [address] Precert Future Allergies Active Allergy Reactions Criticality [...] mRNA, LNP-s, No Pre serve, 2-Dose Series ([employer]) 01/05/2021,05/07/2020,04/16/2020 COVID-19, LNP-s, No Preserve , Jasbir-sucrose, [...] PM EST Order received for cisplatin/ gemzar. [place] plan built and routed for signature. Waiting for auth. Consent signed 03/01/23. Patient went to have hep B labs drawn; however, these ordered were not released by lab. Nurse education 03/01/23. Patient has appt with urology in [place] 03/05/23- waiting until after this appt for [...] 06/10/2023 2:30 PM EDT Office Visit Urology, [facility] 132 [place] [address] Chris Royal MD 27 [facility] [place] [address] [place] [address] 06/24/2023 10:40 AM EDT Office Visit Nephrology, [facility] 200 [facility] [place] [address] Demetrius Sherman MD 200 [facility] [place] [address] 06/25/2023 11:30 AM EDT Office Visit Urology, [place] [address] [place], [place] [id number] Saul Vargas MD [address] [place] [address] 07/25/2023 11:15 AM EDT Office Visit Hematology/Oncology [facility] 200 [facility] [place] [address] Aguilar Lizarraga MD 200 [facility] [place] [address] 11/12/2023 9:20 AM EDT Office Visit General Internal Medicine [facility] 200 [facility] [place] [address] Nichole Lizarraga MD 200 [facility] [place] [address] Health Maintenance Due Date Last Done Comments Zoster Vaccines (1 of 2) 01/23/1971 Colonoscopy 01/23/1997 Fecal Occult Blood Test 01/23/1997 Sigmoidoscopy 01/23/1997 DTaP,Tdap,and Td Vaccines (2 - Td or Tdap) 09/02/2022 09/02/2012 Albumin/Creatinine Ratio 03/13/2023 03/13/2022, 10/20 CKD PHOS USE SMARTSET 53376 03/13/2023 03/13/2022, 0 11/09/2021 Cologuard 06/09/2023 06/08/2020, 10/25/2016 Colorectal Cancer Screening 06/09/2023 GFR 08/30/2023 03/01/2023, 01/18, 01/15/2023, Additional history exists Mammogram 10/12/2023 10/11/2022, 05/0 04/2021, 01/18/2020, Additional history exists Depression Screening 11/07/2023 11/06/2022 CKD HGB USE SMARTSET 18079 03/01/202403/01, 03/01/2023, 02/26/2023, Additional history exists DXA [...] and were consensually agreed upon. Care Teams Edi Programmer Analyst Relationship Specialty Start Date End Date Nichole Lizarraga MD 200 [place] [address] PCP - General Internal Medicine 03/10/12 documented as of this encounter
--- OUTSIDE RECORDS SUMMARY | 2023-06-30 22:57 | External Medical Summary | Summary of Care ---
Author Name Unknown Organization [facility] Address [address] [facility] [address] Phone [phone] Care Team Providers Care Fruit Receiver Name Role Phone Nichole Lizarraga MD Primary Care Provider + Reason for Visit * Reason Onset Date Comments Precert Future 03/01/2023 Encounter Details Date Type Department Care Team (Late st Contact Info) Description 03/01/2023 Telephone Hematology/Oncology Treatment, [place] [address] [place] [address] Aguilar Lizarraga MD 200 [place] [address] Precert Future Allergies Active Allergy Reactions Criticality Noted Date Comments Penicillins Edema airway,Rash High 03/10/2012 Last dose age 14 Pollen 01/17/2021 Ragweed 11/05/2022 documented as of this encounter (statuses as of 03/06/2023) Medications Medication Sig Dispensed Refills Start Date [...] as of this encounter (statuses as of 03/06/2023) Active Problems Problem Noted Date Diagnosed Date [...] as of this encounter (statuses as of 03/06/2023) Resolved Problems Problem Noted Date Diagnosed Date Resolved Date Chronic kidney disease, stage 3a 05/29/2021 05/02/2022 Overview: Per CKD protocol Fever 09/13/2015 10/21/2017 Kidney stone on left side Inguinal hernia 10/21/2017 Overview: Surgical repair Neutropenia 10/21/2017 documented as of this encounter (statuses as of 03/06/2023) Immunizations Name Administration Dates Next Due COVID-19 mRNA, LNP-s, No Pre serve, 2-Dose Series ([employer]car) 01/05/2021,05/07/2020,04/16/2020 COVID-19, LNP-s, No Preserve , Jasbir-sucrose, [...] PM EST Order received for cisplatin/ gemzar. [place] plan built and routed for signature. Waiting for auth. Consent signed 03/01/23. Patient went to have hep B labs drawn; however, these ordered were not released by lab. Nurse education 03/01/23. Patient has appt with urology in [place] 03/05/23- waiting until after this appt for [...] 06/10/2023 2:30 PM EDT Office Visit Urology, [address] [place] [address] Chris Royal MD [address] [place] [address] [place] [address] 06/24/2023 10:40 AM EDT Office Visit Nephrology, [facility] 200 [facility] [place] [address] Demetrius Sherman MD 200 [facility] [place] [address] 06/25/2023 11:30 AM EDT Office Visit Urology, [place] [address] [place] [address] Saul Vargas MD [address] [place], [place] [address] 07/25/2023 11:15 AM EDT Office Visit Hematology/Oncology [facility] 200 [facility] [place] [address] Aguilar Lizarraga MD 200 [facility] [address] 11/12/2023 9:20 AM EDT Office Visit General Internal Medicine [facility] 200 [facility] [place] [address] Nichole Lizarraga MD 200 [facility] [place] [address] Health Maintenance Due Date Last Done Comments Zoster Vaccines (1 of 2) 01/23/1971 Colonoscopy 01/23/1997 Fecal Occult Blood Test 01/23/1997 Sigmoidoscopy 01/23/1997 DTaP,Tdap,and Td Vaccines (2 - Td or Tdap) 09/02/2022 09/02/2012 Albumin/Creatinine Ratio 03/13/2023 03/13/2022, 10/20 CKD PHOS USE SMARTSET 72072 03/13/2023 03/13/2022, 0 11/09/2021 Cologuard 06/09/2023 06/08/2020, 10/25/2016 Colorectal Cancer Screening 06/09/2023 GFR 08/30/2023 03/01/2023, 01/18, 01/15/2023, Additional history exists Mammogram 10/12/2023 10/11/2022, 05/0 04/2021, 01/18/2020, Additional history exists Depression Screening 11/07/2023 11/06/2022 CKD HGB USE SMARTSET 86791 03/01/202403/01, 03/01/2023, 02/26/2023, Additional history exists DXA [...] and were consensually agreed upon. Care Teams Fruit Receiver Relationship Specialty Start Date End Date Nichole Lizarraga MD [address] [place], [place] [address] [address] PCP - General Internal Medicine 03/10/12 documented as of this encounter
--- OUTSIDE RECORDS SUMMARY | 2023-06-30 22:57 | External Medical Summary | Summary of Care ---
Author Name Unknown Organization [facility] Address [address] [facility] [address] Phone [phone] Care Team Providers Care Multi Site Leasing Consultant Name Role Phone Nichole Lizarraga MD Primary Care Provider + Reason for Visit * Reason Onset Date Comments Precert Future 03/01/2023 Encounter Details Date Type Department Care Team (Late st Contact Info) Description 03/01/2023 Telephone Hematology/Oncology Treatment, [place] [address] [place] [address] Aguilar Lizarraga MD 200 [place] [address] Precert Future Allergies Active Allergy Reactions Criticality [...] mRNA, LNP-s, No Pre serve, 2-Dose Series (Gremln) 01/05/2021,05/07/2020,04/16/2020 COVID-19, LNP-s, No Preserve , Jasbir-sucrose, [...] - 6 hour appt "C1D1 cisplatin/ gemzar" (Lizarraga) Thanks! * Telephone Encounter - Dee Brush RN - 03/01/2023 1:50 PM EST Order received for cisplatin/ gemzar. [place] plan built and routed for signature. Waiting for auth. Consent signed 03/01/23. Patient went to have hep B labs drawn; however, these ordered were not released by lab. Nurse education 03/01/23. Patient has appt with urology in [place] 03/05/23- waiting until after this appt for [...] 06/10/2023 2:30 PM EDT Office Visit Urology, [facility] 132 [facility] [place] [address] Chris Royal MD 27 [facility] [address] [place] [address] 06/24/2023 10:40 AM EDT Office Visit Nephrology, [facility] 200 [facility] [place] [address] Demetrius Sherman MD 200 [facility] [place] [address] 06/25/2023 11:30 AM EDT Office Visit Urology, [place] [address] [place] [address] Saul Vargas MD [address] [place] [address] 07/25/2023 11:15 AM EDT Office Visit Hematology/Oncology [facility] 200 [facility] [place] [address] Aguilar Lizarraga MD 200 [facility] [place], [place] [address] 11/12/2023 9:20 AM EDT Office Visit General Internal Medicine [facility] 200 [facility] [place] [address] Nichole Lizarraga MD 200 [facility] [place], [place] [address] Health Maintenance Due Date Last Done Comments Zoster Vaccines (1 of 2) 01/23/1971 Colonoscopy 01/23/1997 Fecal Occult Blood Test 01/23/1997 Sigmoidoscopy 01/23/1997 DTaP,Tdap,and Td Vaccines (2 - Td or Tdap) 09/02/2022 09/02/2012 Albumin/Creatinine Ratio 03/13/2023 03/13/2022, 10/20 CKD PHOS USE SMARTSET 89517 03/13/2023 03/13/2022, 0 11/09/2021 Cologuard 06/09/2023 06/08/2020, 10/25/2016 Colorectal Cancer Screening 06/09/2023 GFR 08/30/2023 03/01/2023, 01/18, 01/15/2023, Additional history exists Mammogram 10/12/2023 10/11/2022, 05/0 04/2021, 01/18/2020, Additional history exists Depression Screening 11/07/2023 11/06/2022 CKD HGB USE SMARTSET 63128 03/01/202403/01, 03/01/2023, 02/26/2023, Additional history exists DXA [...] and were consensually agreed upon. Care Teams Multi Site Leasing Consultant Relationship Specialty Start Date End Date Nichole Lizarraga MD [address] [facility] [place] [address] PCP - General Internal Medicine 03/10/12 documented as of this encounter
--- OUTSIDE RECORDS SUMMARY | 2023-06-30 22:57 | External Medical Summary ---
Author Name Unknown Address Unknown Organization K01:[facility] [address] [place] [address] Laboratory Report Ordering Provider Test Date Status KEN RAY 03/05/2023 12:45:29 Final Observation Date Value Abnormality Reference (Units) Status Hepatitis B virus surface Ab [Units/volume] in Serum or Plasma by Immunoassay 03/05/2023 12:45:29 <3.5 (mIU/mL) Final Hepatitis B virus surface Ab [Presence] in Serum by Immunoassay 03/05/2023 12:45:29 Negative Final HEPATITIS B SURFACE ANTIBODY, INTERPRETATION 03/05/2023 12:45:29 NOT immune to Hepatitis B Virus Final POSITIVE: >=11.5 mIU/mL
INDETERMINATE: 8.5-<11.5 mIU/mL
NEGATIVE: <8.5 mIU/mL Performing Location [facility] [address] [place] [address]
--- OUTSIDE RECORDS SUMMARY | 2023-06-30 22:57 | External Medical Summary | Summary of Care ---
Author Name Unknown Organization [facility] Address [address] [facility] [address] Phone [phone] Care Team Providers Care Commercial Relief Driver Name Role Phone Nichole Lizarraga MD Primary Care Provider + Reason for Visit * Reason Onset Date Comments Precert Future 03/01/2023 Encounter Details Date Type Department Care Team (Late st Contact Info) Description 03/01/2023 Telephone Hematology/Oncology Treatment, [place] [address] [place] [address] Aguilar Lizarraga MD 200 [place] [address] Precert Future Allergies Active Allergy Reactions Criticality [...] mRNA, LNP-s, No Pre serve, 2-Dose Series (Accumulate) 01/05/2021,05/07/2020,04/16/2020 COVID-19, LNP-s, No Preserve , Jasbir-sucrose, [...] PM EST Order received for cisplatin/ gemzar. [place] plan built and routed for signature. Waiting for auth. Consent signed 03/01/23. Patient went to have hep B labs drawn; however, these ordered were not released by lab. Nurse education 03/01/23. Patient has appt with urology in [place] 03/05/23- waiting until after this appt for [...] 06/10/2023 2:30 PM EDT Office Visit Urology, [address] [place] [address] Chris Royal MD [address] [place] [address] [place] [address] 06/24/2023 10:40 AM EDT Office Visit Nephrology, [facility] 200 [facility] [place] [address] Demetrius Sherman MD 200 [facility] [place] [address] 06/25/2023 11:30 AM EDT Office Visit Urology, [place] [address] [place] [address] Saul Vargas MD [address] [place], [place] [address] 07/25/2023 11:15 AM EDT Office Visit Hematology/Oncology [facility] 200 [facility] [place] [address] Aguilar Lizarraga MD 200 [facility] [place] [address] 11/12/2023 9:20 AM EDT Office Visit General Internal Medicine [facility] 200 [facility] [place] [address] Nichole Lizarraga MD 200 [facility] [place] [address] Health Maintenance Due Date Last Done Comments Zoster Vaccines (1 of 2) 01/23/1971 Colonoscopy 01/23/1997 Fecal Occult Blood Test 01/23/1997 Sigmoidoscopy 01/23/1997 DTaP,Tdap,and Td Vaccines (2 - Td or Tdap) 09/02/2022 09/02/2012 Albumin/Creatinine Ratio 03/13/2023 03/13/2022, 10/20 CKD PHOS USE SMARTSET 69589 03/13/2023 03/13/2022, 0 11/09/2021 Cologuard 06/09/2023 06/08/2020, 10/25/2016 Colorectal Cancer Screening 06/09/2023 GFR 08/30/2023 03/01/2023, 01/18, 01/15/2023, Additional history exists Mammogram 10/12/2023 10/11/2022, 05/0 04/2021, 01/18/2020, Additional history exists Depression Screening 11/07/2023 11/06/2022 CKD HGB USE SMARTSET 24794 03/01/202403/01, 03/01/2023, 02/26/2023, Additional history exists DXA [...] and were consensually agreed upon. Care Teams Commercial Relief Driver Relationship Specialty Start Date End Date Nichole Lizarraga MD 200 [place] [address] PCP - General Internal Medicine 03/10/12 documented as of this encounter
--- OUTSIDE RECORDS SUMMARY | 2023-06-30 22:57 | External Medical Summary | Summary of Care ---
Author Name Unknown Organization [facility] Address [address] [facility] [address] Phone [phone] Care Team Providers Care Public Address System Mechanic Name Role Phone Nichole Lizarraga MD Primary Care Provider + Reason for Visit * Reason Onset Date Comments Precert Future 03/01/2023 Encounter Details Date Type Department Care Team (Late st Contact Info) Description 03/01/2023 Telephone Hematology/Oncology Treatment, [place] [address] [place] [address] Aguilar Lizarraga MD 200 [place] [address] Precert Future Allergies Active Allergy Reactions Criticality [...] mRNA, LNP-s, No Pre serve, 2-Dose Series (BugSense) 01/05/2021,05/07/2020,04/16/2020 COVID-19, LNP-s, No Preserve , Jasbir-sucrose, [...] PM EST Order received for cisplatin/ gemzar. [place] plan built and routed for signature. Waiting for auth. Consent signed 03/01/23. Patient went to have hep B labs drawn; however, these ordered were not released by lab. Nurse education 03/01/23. Patient has appt with urology in [place] 03/05/23- waiting until after this appt for [...] 06/10/2023 2:30 PM EDT Office Visit Urology, [facility] 132 [facility] [place] [address] Chris Royal MD 27 [facility] [address] [place] [address] 06/24/2023 10:40 AM EDT Office Visit Nephrology, [facility] [address] [place] [address] Demetrius Sherman MD 200 [facility] [place] [address] 06/25/2023 11:30 AM EDT Office Visit Urology, [place] [address] [place] [address] Saul Vargas MD [address] [place] [address] 07/25/2023 11:15 AM EDT Office Visit Hematology/Oncology [facility] [address] [place] [address] Aguilar Lizarraga MD [address] [place] [address] 11/12/2023 9:20 AM EDT Office Visit General Internal Medicine [facility] [address] [place] [address] Nichole Lizarraga MD 200 [facility] [place] [address] Health Maintenance Due Date Last Done Comments Zoster Vaccines (1 of 2) 01/23/1971 Colonoscopy 01/23/1997 Fecal Occult Blood Test 01/23/1997 Sigmoidoscopy 01/23/1997 DTaP,Tdap,and Td Vaccines (2 - Td or Tdap) 09/02/2022 09/02/2012 Albumin/Creatinine Ratio 03/13/2023 03/13/2022, 10/20 CKD PHOS USE SMARTSET 47382 03/13/2023 03/13/2022, 0 11/09/2021 Cologuard 06/09/2023 06/08/2020, 10/25/2016 Colorectal Cancer Screening 06/09/2023 GFR 08/30/2023 03/01/2023, 01/18, 01/15/2023, Additional history exists Mammogram 10/12/2023 10/11/2022, 05/0 04/2021, 01/18/2020, Additional history exists Depression Screening 11/07/2023 11/06/2022 CKD HGB USE SMARTSET 76807 03/01/202403/01, 03/01/2023, 02/26/2023, Additional history exists DXA [...] and were consensually agreed upon. Care Teams Public Address System Mechanic Relationship Specialty Start Date End Date Nichole Lizarraga MD 200 [place] [address] PCP - General Internal Medicine 03/10/12 documented as of this encounter
--- OUTSIDE RECORDS SUMMARY | 2023-06-30 22:57 | External Medical Summary | Summary of Care ---
Author Name Unknown Organization [facility] Address [address] [facility] [address] Phone [phone] Care Team Providers Care Security Controls Assessor Name Role Phone Nichole Lizarraga MD Primary Care Provider + Reason for Visit * Reason Onset Date Comments Precert Future 03/01/2023 Encounter Details Date Type Department Care Team (Late st Contact Info) Description 03/01/2023 Telephone Hematology/Oncology Treatment, [place] [address] [place] [address] Aguilar Lizarraga MD 200 [place] [address] Precert Future Allergies Active Allergy Reactions Criticality [...] mRNA, LNP-s, No Pre serve, 2-Dose Series (Ad.IQ) 01/05/2021,05/07/2020,04/16/2020 COVID-19, LNP-s, No Preserve , Jasbir-sucrose, [...] PM EST Order received for cisplatin/ gemzar. [place] plan built and routed for signature. Waiting for auth. Consent signed 03/01/23. Patient went to have hep B labs drawn; however, these ordered were not released by lab. Nurse education 03/01/23. Patient has appt with urology in [place] 03/05/23- waiting until after this appt for [...] 06/10/2023 2:30 PM EDT Office Visit Urology, [address] [place] [address] Chris Royal MD [address] [place] [address] 06/24/2023 10:40 AM EDT Office Visit Nephrology, [facility] [address] [facility] [place] [place] [address] Demetrius Sherman MD [address] [facility] [place] [address] 06/25/2023 11:30 AM EDT Office Visit Urology, [place] [address] [place] [address] Saul Vargas MD [address] [place], [place] [address] 07/25/2023 11:15 AM EDT Office Visit Hematology/Oncology [facility] [address] [facility] [place] [place] [address] Aguilar Lizarraga MD [address] [facility] [place] [address] 11/12/2023 9:20 AM EDT Office Visit General Internal Medicine [facility] [address] [facility] [place] [place] [address] Nichole Lizarraga MD [address] [facility] [place] [address] Health Maintenance Due Date Last Done Comments Zoster Vaccines (1 of 2) 01/23/1971 Colonoscopy 01/23/1997 Fecal Occult Blood Test 01/23/1997 Sigmoidoscopy 01/23/1997 DTaP,Tdap,and Td Vaccines (2 - Td or Tdap) 09/02/2022 09/02/2012 Albumin/Creatinine Ratio 03/13/2023 03/13/2022, 10/20 CKD PHOS USE SMARTSET 33747 03/13/2023 03/13/2022, 0 11/09/2021 Cologuard 06/09/2023 06/08/2020, 10/25/2016 Colorectal Cancer Screening 06/09/2023 GFR 08/30/2023 03/01/2023, 01/18, 01/15/2023, Additional history exists Mammogram 10/12/2023 10/11/2022, 05/0 04/2021, 01/18/2020, Additional history exists Depression Screening 11/07/2023 11/06/2022 CKD HGB USE SMARTSET 28210 03/01/202403/01, 03/01/2023, 02/26/2023, Additional history exists DXA [...] and were consensually agreed upon. Care Teams Security Controls Assessor Relationship Specialty Start Date End Date Nichole Lizarraga MD [address] [place], [place] [address] [address] PCP - General Internal Medicine 03/10/12 documented as of this encounter
--- OUTSIDE RECORDS SUMMARY | 2023-06-30 22:57 | External Medical Summary ---
Author Name Unknown Address Unknown Organization K01:[facility] [address] [place] [address] Laboratory Report Ordering Provider Test Date Status KEN RAY 03/05/2023 12:45:29 Final Observation Date Value Abnormality Reference (Units ) Status Hep B surface Ag 03/05/2023 12:45:29 Negative Neg ative Final Performing Location [facility] [address] [place] [address]
--- OUTSIDE RECORDS SUMMARY | 2023-06-30 22:57 | External Medical Summary | Summary of Care ---
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) Allergies Active Allergy Reactions Criticality Noted Date Comments Penicillins Edema airway,Rash High 03/10/2012 Last dose age 14 Pollen 01/17/2021 Ragweed 11/05/2022 documented as of this encounter (statuses as of 03/05/2023) Medications Medication Sig Dispensed Refills Start Date [...] as of this encounter (statuses as of 03/05/2023) Active Problems Problem Noted Date Diagnosed Date [...] as of this encounter (statuses as of 03/05/2023) Resolved Problems Problem Noted Date Diagnosed Date Resolved Date Chronic kidney disease, stage 3a 05/29/2021 05/02/2022 Overview: Per CKD protocol Fever 09/13/2015 10/21/2017 Kidney stone on left side Inguinal hernia 10/21/2017 Overview: Surgical repair Neutropenia 10/21/2017 documented as of this encounter (statuses as of 03/05/2023) Immunizations Name Administration Dates Next Due COVID-19 mRNA, LNP-s, No Pre serve, 2-Dose Series ([employer]entsoft) 01/05/2021,05/07/2020,04/16/2020 COVID-19, LNP-s, No Preserve , Jasbir-sucrose, [...] 06/10/2023 2:30 PM EDT Office Visit Urology, [facility] 132 [facility] [place] [address] Chris Royal MD [address] [place] [address] [place] [address] 06/24/2023 10:40 AM EDT Office Visit Nephrology, [place] [address] [place] [address] Demetrius Sherman MD 200 [facility] [place] [address] 06/25/2023 11:30 AM EDT Office Visit Urology, [place] [address] [place] [address] Saul Vargas MD [address] [place] [address] 07/25/2023 11:15 AM EDT Office Visit Hematology/Oncology [facility] 200 [facility] [address] Aguilar Lizarraga MD 200 [facility] [place] [address] 11/12/2023 9:20 AM EDT Office Visit General Internal Medicine [facility] 200 [facility] [address] Nichole Lizarraga MD 200 [place] [address] Health Maintenance Due Date Last Done Comments Zoster Vaccines (1 of 2) 01/23/1971 Colonoscopy 01/23/1997 Fecal Occult Blood Test 01/23/1997 Sigmoidoscopy 01/23/1997 DTaP,Tdap,and Td Vaccines (2 - Td or Tdap) 09/02/2022 09/02/2012 Albumin/Creatinine Ratio 03/13/2023 03/13/2022, 10/20 CKD PHOS USE SMARTSET 34872 03/13/2023 03/13/2022, 0 11/09/2021 Cologuard 06/09/2023 06/08/2020, 10/25/2016 Colorectal Cancer Screening 06/09/2023 GFR 08/30/2023 03/01/2023, 01/18, 01/15/2023, Additional history exists Mammogram 10/12/2023 10/11/2022, 05/0 04/2021, 01/18/2020, Additional history exists Depression Screening 11/07/2023 11/06/2022 CKD HGB USE SMARTSET 48819 03/01/202403/01, 03/01/2023, 02/26/2023, Additional history exists DXA [...] and were consensually agreed upon. Care Teams Change Over Relationship Specialty Start Date End Date Nichole Lizarraga MD 200 [facility] [place] [address] PCP - General Internal Medicine 03/10/12 documented as of this encounter
--- OUTSIDE RECORDS SUMMARY | 2023-06-30 22:57 | External Medical Summary | Summary of Care ---
Author Name Unknown Organization [facility] Address [address] [facility] [address] Phone [phone] Care Team Providers Care Blanket Winder Operator Name Role Phone Nichole Lizarraga MD Primary Care Provider + Reason for Visit * Reason Onset Date Comments Precert Future 03/01/2023 Encounter Details Date Type Department Care Team (Late st Contact Info) Description 03/01/2023 Telephone Hematology/Oncology Treatment, [place] [address] [place] [address] Aguilar Lizarraga MD 200 [place] [address] Precert Future Allergies Active Allergy Reactions Criticality [...] mRNA, LNP-s, No Pre serve, 2-Dose Series ([employer]ons) 01/05/2021,05/07/2020,04/16/2020 COVID-19, LNP-s, No Preserve , Jasbir-sucrose, [...] PM EST Order received for cisplatin/ gemzar. [place] plan built and routed for signature. Waiting for auth. Consent signed 03/01/23. Patient went to have hep B labs drawn; however, these ordered were not released by lab. Nurse education 03/01/23. Patient has appt with urology in [place] 03/05/23- waiting until after this appt for [...] 06/10/2023 2:30 PM EDT Office Visit Urology, [facility] 132 [facility] [place] [address] Chris Royal MD 27 [facility] [address] [place] [address] 06/24/2023 10:40 AM EDT Office Visit Nephrology, [facility] 200 [facility] [place] [address] Demetrius Sherman MD 200 [facility] [place] [address] 06/25/2023 11:30 AM EDT Office Visit Urology, [place] [address] [place] [address] Saul Vargas MD [address] [place] [address] 07/25/2023 11:15 AM EDT Office Visit Hematology/Oncology [facility] [place] 200 [facility] [place] [address] Aguilar Lizarraga MD 200 [facility] [place] [address] 11/12/2023 9:20 AM EDT Office Visit General Internal Medicine [facility] 200 [facility] [place] [address] Nichole Lizarraga MD 200 [facility] [place] [address] Health Maintenance Due Date Last Done Comments Zoster Vaccines (1 of 2) 01/23/1971 Colonoscopy 01/23/1997 Fecal Occult Blood Test 01/23/1997 Sigmoidoscopy 01/23/1997 DTaP,Tdap,and Td Vaccines (2 - Td or Tdap) 09/02/2022 09/02/2012 Albumin/Creatinine Ratio 03/13/2023 03/13/2022, 10/20 CKD PHOS USE SMARTSET 32115 03/13/2023 03/13/2022, 0 11/09/2021 Cologuard 06/09/2023 06/08/2020, 10/25/2016 Colorectal Cancer Screening 06/09/2023 GFR 08/30/2023 03/01/2023, 01/18, 01/15/2023, Additional history exists Mammogram 10/12/2023 10/11/2022, 05/0 04/2021, 01/18/2020, Additional history exists Depression Screening 11/07/2023 11/06/2022 CKD HGB USE SMARTSET 87664 03/01/202403/01, 03/01/2023, 02/26/2023, Additional history exists DXA [...] and were consensually agreed upon. Care Teams Blanket Winder Operator Relationship Specialty Start Date End Date Nichole Lizarraga MD 200 [facility] [place] [address] PCP - General Internal Medicine 03/10/12 documented as of this encounter
--- OUTSIDE RECORDS SUMMARY | 2023-06-30 22:57 | External Medical Summary | Summary of Care ---
Author Name Unknown Organization [facility] Address [address] [facility] [address] Phone [phone] Care Team Providers Care Paintings Conservator Name Role Phone Nichole Lizarraga MD Primary Care Provider + Reason for Visit * Reason Onset Date Comments Precert Future 03/01/2023 Encounter Details Date Type Department Care Team (Late st Contact Info) Description 03/01/2023 Telephone Hematology/Oncology Treatment, [place] [address] [place] [address] Aguilar Lizarraga MD 200 [place] [address] Precert Future Allergies Active Allergy Reactions Criticality [...] mRNA, LNP-s, No Pre serve, 2-Dose Series ([employer]) 01/05/2021,05/07/2020,04/16/2020 COVID-19, LNP-s, No Preserve , Jasbir-sucrose, [...] Miscellaneous Notes * Telephone Encounter - Ena aTlbot OSA - 03/13/2023 8:59 AM EST Nursing-please [...] PM EST Order received for cisplatin/ gemzar. [place] plan built and routed for signature. Waiting for auth. Consent signed 03/01/23. Patient went to have hep B labs drawn; however, these ordered were not released by lab. Nurse education 03/01/23. Patient has appt with urology in [place] 03/05/23- waiting until after this appt for [...] 06/10/2023 2:30 PM EDT Office Visit Urology, [facility] 132 [facility] [place] [address] Chris Royal MD 27 [facility] [address] [place] [address] 06/24/2023 10:40 AM EDT Office Visit Nephrology, [facility] [address] [place] [address] Demetrius Sherman MD 200 [facility] [place] [address] 06/25/2023 11:30 AM EDT Office Visit Urology, [place] [address] [place] [address] Saul Vargas MD [address] [place] [address] 07/25/2023 11:15 AM EDT Office Visit Hematology/Oncology [facility] 200 [facility] [place] [address] Aguilar Lizarraga MD 200 [facility] [place] [address] 11/12/2023 9:20 AM EDT Office Visit General Internal Medicine [facility] 200 [facility] [place] [address] Nichole Lizarraga MD 200 [place] [place] [address] Health Maintenance Due Date Last Done Comments Zoster Vaccines (1 of 2) 01/23/1971 Colonoscopy 01/23/1997 Fecal Occult Blood Test 01/23/1997 Sigmoidoscopy 01/23/1997 DTaP,Tdap,and Td Vaccines (2 - Td or Tdap) 09/02/2022 09/02/2012 Albumin/Creatinine Ratio 03/13/2023 03/13/2022, 10/20 CKD PHOS USE SMARTSET [id number] 03/13/2023 03/13/2022, 0 11/09/2021 Cologuard 06/09/2023 06/08/2020, 10/25/2016 Colorectal Cancer Screening 06/09/2023 GFR 08/30/2023 03/01/2023, 01/18, 01/15/2023, Additional history exists Mammogram 10/12/2023 10/11/2022, 05/0 04/2021, 01/18/2020, Additional history exists Depression Screening 11/07/2023 11/06/2022 CKD HGB USE SMARTSET 64800 03/01/202403/01, 03/01/2023, 02/26/2023, Additional history exists DXA [...] and were consensually agreed upon. Care Teams Paintings Conservator Relationship Specialty Start Date End Date Nichole Lizarraga MD [address] [place] [address] PCP - General Internal Medicine 03/10/12 documented as of this encounter
--- OUTSIDE RECORDS SUMMARY | 2023-06-30 22:57 | External Medical Summary | Summary of Care ---
Author Name Unknown Organization [facility] Address [address] [facility] [address] Phone [phone] Care Team Providers Care Truck Hopper Name Role Phone Nichole Lizarraga MD Primary Care Provider + Reason for Visit * Reason Onset Date Comments Precert Future 03/01/2023 Encounter Details Date Type Department Care Team (Late st Contact Info) Description 03/01/2023 Telephone Hematology/Oncology Treatment, [place] [address] [place] [address] Aguilar Lizarraga MD 200 [place] [address] Precert Future Allergies Active Allergy Reactions Criticality Noted Date Comments Penicillins Edema airway,Rash High 03/10/2012 Last dose age 14 Pollen 01/17/2021 Ragweed 11/05/2022 documented as of this encounter (statuses as of 03/11/2023) Medications Medication Sig Dispensed Refills Start Date [...] as of this encounter (statuses as of 03/11/2023) Active Problems Problem Noted Date Diagnosed Date [...] as of this encounter (statuses as of 03/11/2023) Resolved Problems Problem Noted Date Diagnosed Date Resolved Date Chronic kidney disease, stage 3a 05/29/2021 05/02/2022 Overview: Per CKD protocol Fever 09/13/2015 10/21/2017 Kidney stone on left side Inguinal hernia 10/21/2017 Overview: Surgical repair Neutropenia 10/21/2017 documented as of this encounter (statuses as of 03/11/2023) Immunizations Name Administration Dates Next Due COVID-19 mRNA, LNP-s, No Pre serve, 2-Dose Series (rankdesk) 01/05/2021,05/07/2020,04/16/2020 COVID-19, LNP-s, No Preserve , Jasbir-sucrose, [...] PM EST Order received for cisplatin/ gemzar. [place] plan built and routed for signature. Waiting for auth. Consent signed 03/01/23. Patient went to have hep B labs drawn; however, these ordered were not released by lab. Nurse education 03/01/23. Patient has appt with urology in [place] 03/05/23- waiting until after this appt for [...] 06/10/2023 2:30 PM EDT Office Visit Urology, [address] [place] [address] Chris Royal MD [address] [place] [address] 06/24/2023 10:40 AM EDT Office Visit Nephrology, [facility] 200 [facility] [place] [address] Demetrius Sherman MD 200 [facility] [place] [address] 06/25/2023 11:30 AM EDT Office Visit Urology, [place] [address] [place] [address] Saul Vargas MD [address] [place], [place] [address] 07/25/2023 11:15 AM EDT Office Visit Hematology/Oncology [facility] 200 [facility] [place] [address] Aguilar Lizarraga MD 200 [facility] [place] [address] 11/12/2023 9:20 AM EDT Office Visit General Internal Medicine [facility] 200 [facility] [place] [address] Nichole Lizarraga MD 200 [facility] [place] [address] Health Maintenance Due Date Last Done Comments Zoster Vaccines (1 of 2) 01/23/1971 Colonoscopy 01/23/1997 Fecal Occult Blood Test 01/23/1997 Sigmoidoscopy 01/23/1997 DTaP,Tdap,and Td Vaccines (2 - Td or Tdap) 09/02/2022 09/02/2012 Albumin/Creatinine Ratio 03/13/2023 03/13/2022, 10/20 CKD PHOS USE SMARTSET 34016 03/13/2023 03/13/2022, 0 11/09/2021 Cologuard 06/09/2023 06/08/2020, 10/25/2016 Colorectal Cancer Screening 06/09/2023 GFR 08/30/2023 03/01/2023, 01/18, 01/15/2023, Additional history exists Mammogram 10/12/2023 10/11/2022, 05/0 04/2021, 01/18/2020, Additional history exists Depression Screening 11/07/2023 11/06/2022 CKD HGB USE SMARTSET 21288 03/01/202403/01, 03/01/2023, 02/26/2023, Additional history exists DXA [...] and were consensually agreed upon. Care Teams Truck Hopper Relationship Specialty Start Date End Date Nichole Lizarraga MD [address] [place], [place] [address] [address] PCP - General Internal Medicine 03/10/12 documented as of this encounter
--- OUTSIDE RECORDS SUMMARY | 2023-06-30 22:57 | External Medical Summary | Summary of Care ---
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 [place] [address] Chris Royal MD [address] [place] [address] 06/24/2023 10:40 AM EDT Office Visit Nephrology, [facility] [address] [place] [address] Demetrius Sherman MD [address] [place] [address] 07/25/2023 11:15 AM EDT Office Visit Hematology/Oncology [facility] [address] [place] [address] Aguilar Lizarraga MD [address] [place] [address] 11/12/2023 9:20 AM EDT Office Visit General Internal Medicine [facility] [address] [place] [address] [address] Nichole Lizarraga MD [address] [place] [address] Health Maintenance Due Date Last Done Comments Zoster Vaccines (1 of 2) 01/23/1971 Colonoscopy 01/23/1997 Fecal Occult Blood Test 01/23/1997 Sigmoidoscopy 01/23/1997 DTaP,Tdap,and Td Vaccines (2 - Td or Tdap) 09/02/2022 09/02/2012 Albumin/Creatinine Ratio 03/13/2023 03/13/2022, 10/20 CKD PHOS USE SMARTSET 27411 03/13/2023 03/13/2022, 0 11/09/2021 Cologuard 06/09/2023 06/08/2020, 10/25/2016 Colorectal Cancer Screening 06/09/2023 GFR 08/30/2023 03/01/2023, 01/18, 01/15/2023, Additional history exists Mammogram 10/12/2023 10/11/2022, 05/0 04/2021, 01/18/2020, Additional history exists Depression Screening 11/07/2023 11/06/2022 CKD HGB USE SMARTSET 60246 03/01/202403/01, 03/01/2023, 02/26/2023, Additional history exists DXA [...] and were consensually agreed upon. Care Teams Dinkey Mechanic Relationship Specialty Start Date End Date Nichole Lizarraga MD [address] [place] [address] PCP - General Internal Medicine 03/10/12 documented as of this encounter
--- OUTSIDE RECORDS SUMMARY | 2023-06-30 22:58 | External Medical Summary | Summary of Care ---
Author Name Unknown Organization [facility] Address [address] [facility] [address] Phone [phone] Care Team Providers Care Wall Man Name Role Phone Nichole Lizarraga MD Primary Care Provider + Reason for Visit * Reason Onset Date Comments Precert Future 03/01/2023 Encounter Details Date Type Department Care Team (Late st Contact Info) Description 03/01/2023 Telephone Hematology/Oncology Treatment, [place] [address] [place] [address] Aguilar Lizarraga MD [address] [place] [address] Precert Future Allergies Active Allergy Reactions Criticality Noted Date Comments Penicillins Edema airway,Rash High 03/10/2012 Last dose age 14 Pollen 01/17/2021 Ragweed 11/05/2022 documented as of this encounter (statuses as of 03/01/2023) Medications Medication Sig Dispensed Refills Start Date [...] as of this encounter (statuses as of 03/01/2023) Active Problems Problem Noted Date Diagnosed Date [...] as of this encounter (statuses as of 03/01/2023) Resolved Problems Problem Noted Date Diagnosed Date Resolved Date Chronic kidney disease, stage 3a 05/29/2021 05/02/2022 Overview: Per CKD protocol Fever 09/13/2015 10/21/2017 Kidney stone on left side Inguinal hernia 10/21/2017 Overview: Surgical repair Neutropenia 10/21/2017 documented as of this encounter (statuses as of 03/01/2023) Immunizations Name Administration Dates Next Due COVID-19 mRNA, LNP-s, No Pre serve, 2-Dose Series ([email or web address]) 01/05/2021,05/07/2020,04/16/2020 COVID-19, LNP-s, No Preserve , Jasbir-sucrose, [...] PM EST Order received for cisplatin/ gemzar. Beccaria plan built and routed for signature. Waiting for auth. Consent signed 03/01/23. Hep B labs drawn 03/01/23. Nurse education 03/01/23. Patient has appt with urology in [place] 03/05/23- waiting until after this appt for treatment in case alternative treatment option is recommended. While on cisplatin and gemzar, patient to continue zarxio 4 days/ week but will increase dose to 480mcg- new refill encounter sent for this dose, waiting for auth for this dose.. documented in this encounter Plan of Treatment Upcoming Encounters Date Type Department Care Team (Late st Contact Info) Description 03/05/2023 11:15 AM EST Office Visit Urology, [place] [address], [place] [id number] Saul Vargas MD [address] [place] [address] 06/10/2023 2:30 PM EDT Office Visit Urology, [facility] [address] [facility] [place] [address] Chris Royal MD [address] [address] [place] [address] 06/24/2023 10:40 AM EDT Office Visit Nephrology, [facility] 200 [facility] [place] [address] Demetrius Sherman MD 200 [facility] [place] [address] 07/25/2023 11:15 AM EDT Office Visit Hematology/Oncology [facility] 200 [facility] [place] [address] Aguilar Lizarraga MD 200 [facility] [place] [address] 11/12/2023 9:20 AM EDT Office Visit General Internal Medicine [facility] 200 [facility] [place] [address] Nichole Lizarraga MD 200 [facility] [place] [address] Health Maintenance Due Date Last Done Comments Zoster Vaccines (1 of 2) 01/23/1971 Colonoscopy 01/23/1997 Fecal Occult Blood Test 01/23/1997 Sigmoidoscopy 01/23/1997 DTaP,Tdap,and Td Vaccines (2 - Td or Tdap) 09/02/2022 09/02/2012 Albumin/Creatinine Ratio 03/13/2023 03/13/2022, 10/20 CKD PHOS USE SMARTSET 13770 03/13/2023 03/13/2022, 0 11/09/2021 Cologuard 06/09/2023 06/08/2020, 10/25/2016 Colorectal Cancer Screening 06/09/2023 GFR 08/30/2023 03/01/2023, 01/18, 01/15/2023, Additional history exists Mammogram 10/12/2023 10/11/2022, 05/0 04/2021, 01/18/2020, Additional history exists Depression Screening 11/07/2023 11/06/2022 CKD HGB USE SMARTSET 03973 03/01/202403/01, 03/01/2023, 02/26/2023, Additional history exists DXA [...] and were consensually agreed upon. Care Teams Wall Man Relationship Specialty Start Date End Date Nichole Lizarraga MD 200 [facility] [place] [address] PCP - General Internal Medicine 03/10/12 documented as of this encounter
--- OUTSIDE RECORDS SUMMARY | 2023-06-30 22:58 | External Medical Summary | Summary of Care ---
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 [facility] What is the patient being referred for? 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 Encounter Details Date Type Department Care Team (Late st Contact Info) Description 02/07/2023 Telephone [facility] Urology [address] [place] [address] [place] [address] Chris Royal MD [address] [place] [address] Allergies Active Allergy Reactions Criticality Noted Date Comments Penicillins Edema airway,Rash High 03/10/2012 Last dose age 14 Pollen 01/17/2021 Ragweed 11/05/2022 documented as of this encounter (statuses as of 02/26/2023) Medications Medication Sig Dispensed Refills Start Date [...] before bedtime. 6 Tablet 0 02/04/2023 Active oxyCODONE-Acetaminop hen 5-325 MG Oral Tablet (Percocet) Take 1 Tablet by mouth every 6 hours as needed for Pain, Severe. 14 Tablet 0 02/04/2023 Active Phenazopyridine HCl 200 MG Oral Tablet (Pyridium) Take 1 Tablet by mouth 3 times a day as needed for Other (bladder spasms). After meals. 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..] Telephone Encounter - Dee Brush RN - 02/26/2023 3:[address] Lizarraga, would like patients appt with him to be moved to 03/01/23 at 8:45am (patient currentlyin that spot is being rescheduled). Scheduling: please call patient to move appt. Thanks! * Telephone Encounter - Dee Brush RN - 02/08/2023 8:25 AM EST Will review with Dr Lizarraga when he returns to the office 02/26/23. * Telephone Encounter - Chris Royal MD - 02/07/2023 3:25 PM EST I think 03/20 should be fine, thanks. If you wish to have Dr. Lizarraga review pathology when he returns, patient notes he has previously expressed an interest. He may choose to make recommendations priorto visit seen that patient is already established and known to him. Thanks, HM * Telephone Encounter - Sujata Berger CMA - 02/07/2023 2:54 PM EST Dee, Would you be able to review this and Dr. Lizarraga's last office note and advise if 03/20 for a follow up would be ok or should we utilize a new patient spot which would be 03/06 12:15pm. (All overbook spots are used and all new patient spots are reserved for New Oncs up until 03/06) * Telephone Encounter - Ivanna Woodward MED ASSIST - 02/07/2023 2:43 PM EST The soonest available with Dr Lizarraga is 03/20. Due to him out of office. I did schedule that for pt. Is that appt ok? Or should a massage be sent directly to [facility] office. If appt is ok, I can call pt. * Telephone Encounter - Chris Royal MD - 02/07/2023 2:22 PM EST Patient's pathology demonstrating muscle invasive cancer of the bladder at the time of TURBT resulted today. I have discussed pathology results with patient by phone. She needs prompt referral to Urologic Oncology for consideration of radical versus partial cystectomy. Patient is already established with Dr. Lizarraga of Oncology, but not scheduled to see him until July. Her next appointment with himshould be moved up to the next available, let us please contact their office to arrange. Thanks, HM documented in this encounter Plan of Treatment Upcoming Encounters Date Type Department Care Team (Late st Contact Info) Description 03/05/2023 11:15 AM EST Office Visit Urology, [place] [address] [place] [address] Saul Vargas MD [address] [place] [address] 03/20/2023 8:15 AM EST Office Visit Hematology/Oncology [facility] 200 [facility] [place] [address] Aguilar Lizarraga MD 200 [place] [address] 06/10/2023 2:30 PM EDT Office Visit Urology, [facility] 132 [place] [address] Chris Royal MD [address] [place] [address] 06/24/2023 10:40 AM EDT Office Visit Nephrology, [facility] [address] Demetrius Sherman MD [address] [facility] [place] [address] 07/25/2023 11:15 AM EDT Office Visit Hematology/Oncology [facility] [address] [facility] [address] Aguilar Lizarraga MD [address] [facility] [place] [address] 11/12/2023 9:20 AM EDT Office Visit General Internal Medicine [facility] [address] [place] [address] [address] Nichole Lizarraga MD [address] [place] [address] [address] Scheduled Referrals Name Type Priority Associated Diagnoses [...] 03/13/2023 03/13/2022, 10/20 CKD PHOS USE SMARTSET 34801 03/13/2023 03/13/2022, 0 11/09/2021 Cologuard 06/09/2023 06/08/2020, 10/25/2016 Colorectal Cancer Screening 06/09/2023 GFR 07/30/2023 01/28/2023, 12/20, 08/23/2022, Additional history exists Mammogram 10/12/2023 10/11/2022, 05/0 04/2021, 01/18/2020, Additional history exists Depression Screening 11/07/2023 11/06/2022 CKD HGB USE SMARTSET 97068 02/27/202402/26, 02/26/2023, 01/28/2023, Additional history exists DXA Scan 10/02/2024 10/02/2022, [...] and were consensually agreed upon. Care Teams Party Plan Sales Host/Hostess Relationship Specialty Start Date End Date Nichole Lizarraga MD [address] [facility] [place] [address] PCP - General Internal Medicine 03/10/12 documented as of this encounter
--- OUTSIDE RECORDS SUMMARY | 2023-06-30 22:58 | External Medical Summary | Summary of Care ---
Author Name Unknown Organization [facility] Address [address] [facility] [place] [address] Phone [phone] Care Team Providers Care Press Operator Printing Name Role Phone Nichole Lizarraga MD Primary Care Provider + Reason for Visit * Reason Onset Date Comments Medication Refill 03/01/2023 Encounter Details Date Type Department Care Team (Late st Contact Info) Description 03/01/2023 Refill Hematology/Oncology [facility] 200 [facility] [place] [address] Flor Lizarraga MD 200 [place] [address] Malignant neoplasm of dome of urinary bladder [...] mRNA, LNP-s, No Pre serve, 2-Dose Series ([employer]) 01/05/2021,05/07/2020,04/16/2020 COVID-19, LNP-s, No Preserve , Jasbir-sucrose, [...] Telephone Encounter - Josh Escalera RN - 03/01/2023 11:27 AM ESTSigned Prescriptions: Disp Refills Ondansetron HCl 8 MG Oral Tablet (Zofran) 30 Tab*2 Sig: Take 1 Tablet by mouth every 8 hours as needed for Nausea.Authorizing Provider: FLOR LIZARRAGA Prochlorperazine Maleate 10 MG Oral Tablet*30 Tab*2 Sig: Take 1 Tablet by mouth every 6 hours as needed for Nausea.Authorizing Provider: FLOR LIZARRAGA * Telephone Encounter - Flor Lizarraga MD - 03/01/2023 11:14 AM EST E-prescribed Compazine and Zofran. * Telephone Encounter - Dee Brush RN - 03/01/2023 9:34 AM EST Pended zofran and compazine documented in this encounter Plan of Treatment Upcoming Encounters Date Type Department Care Team (Late st Contact Info) Description 03/05/2023 11:15 AM EST Office Visit Urology, [place] [address] [place] [address] Saul Vargas MD [address] [place] [address] 06/10/2023 2:30 PM EDT Office Visit Urology, [facility] 132 [place] [address] Chris Royal MD 27 [facility] [address] [place] [address] 06/24/2023 10:40 AM EDT Office Visit Nephrology, [facility] [address] [place] [address] Demetrius Sherman MD 200 [facility] [place] [address] 07/25/2023 11:15 AM EDT Office Visit Hematology/Oncology [facility] [address] [place] [address] Flor Lizarraga MD 200 [facility] [place] [address] 11/12/2023 9:20 AM EDT Office Visit General Internal Medicine [facility] [address] [place] [address] Nichole Lizarraga MD 200 [facility] [place] [address] Health Maintenance Due Date Last Done Comments Zoster Vaccines (1 of 2) 01/23/1971 Colonoscopy 01/23/1997 Fecal Occult Blood Test 01/23/1997 Sigmoidoscopy 01/23/1997 DTaP,Tdap,and Td Vaccines (2 - Td or Tdap) 09/02/2022 09/02/2012 Albumin/Creatinine Ratio 03/13/2023 03/13/2022, 10/20 CKD PHOS USE SMARTSET 69293 03/13/2023 03/13/2022, 0 11/09/2021 Cologuard 06/09/2023 06/08/2020, 10/25/2016 Colorectal Cancer Screening 06/09/2023 GFR 08/30/2023 03/01/2023, 01/18, 01/15/2023, Additional history exists Mammogram 10/12/2023 10/11/2022, 05/0 04/2021, 01/18/2020, Additional history exists Depression Screening 11/07/2023 11/06/2022 CKD HGB USE SMARTSET 96642 03/01/202403/01, 03/01/2023, 02/26/2023, Additional history exists DXA [...] and were consensually agreed upon. Care Teams Press Operator Printing Relationship Specialty Start Date End Date Nichole Lizarraga MD 200 [facility] [place] [address] PCP - General Internal Medicine 03/10/12 documented as of this encounter
--- OUTSIDE RECORDS SUMMARY | 2023-06-30 22:58 | External Medical Summary ---
Author Name Unknown Address Unknown Organization K09:[facility] [address] [place] [address] Laboratory Report Ordering Provider Test Date Status KEN RAY 03/01/2023 10:22:01 Final Observation Date Value Abnormality Reference (Units ) Status Nucleated erythrocytes/100 leukocytes [Ratio] in Blood by Automated count 03/01/2023 10:22:01 Final Variant lymphocytes [Presence] in Blood by Light microscopy 03/01/2023 10:22:01 Present Abnormal None Seen Final Performing Location [facility] [place] [address]
--- OUTSIDE RECORDS SUMMARY | 2023-06-30 22:58 | External Medical Summary ---
Author Name Unknown Address Unknown Organization K09[facility] [place] [address] Laboratory Report Ordering Provider Test Date Status FLORKEN 03/01/2023 10:22:01 Final Observation Date Value Abnormality Reference (Units ) Status Magnesium 03/01/2023 10:22:01 2.2 1.5-2.6 (m g/dL) Final Performing Location [facility] [place] [address]
--- OUTSIDE RECORDS SUMMARY | 2023-06-30 22:58 | External Medical Summary ---
Author Name Unknown Address Unknown Organization K09:[facility] [address] [place] [address] Laboratory Report Ordering Provider Test Date Status KEN RAY 03/01/2023 10:22:01 Final Observation Date Value Abnormality Reference (Units ) Status BUN 03/01/2023 10:22:01 12 6-20 (mg/dL) Final Creatinine 03/01/2023 10:22:01 1.3 Above high normal 0.5-1.0 (mg/dL) Final Glomerular filtration rate/1.73 sq M.predicted [Volume Rate/Area] in Serum, Plasma or Blood by Creatinine-based formula (CKD-EPI) 03/01/2023 10:22:01 45 Below low normal >=60 (mL/min) Final eGFR is calculated based on the CKD-EPI 2020 equation SODIUM 03/01/2023 10:22:01 142 135-146 (m mol/L) Final Potassium 03/01/2023 10:22:01 4.1 3.5-5.1 (m mol/L) Final Cl 03/01/2023 10:22:01 107 98-107 (mm ol/L) Final CO2 03/01/2023 10:22:01 27 22-32 (mmo l/L) Final Anion gap 03/01/2023 10:22:01 8 7-15 (mmol /L) Final Glucose 03/01/2023 10:22:01 99 70-120 (mg /dL) Final Albumin 03/01/2023 10:22:01 4.0 3.8-5.0 (g /dL) Final AST (Aspartate aminotransferase) 03/01/2023 10:22:01 18 10-35 (U/L) Fin al Alk Phos 03/01/2023 10:22:01 79 35-130 (U/ L) Final Bilirubin, Total 03/01/2023 10:22:01 0.6 <=1 .2 (mg/dL) Final Calcium 03/01/2023 10:22:01 9.3 8.4-10.2 ( mg/dL) Final Protein 03/01/2023 10:22:01 7.2 6.0-8.3 (g /dL) Final ALT (Alanine aminotransferase) 03/01/2023 10:22:01 7 Below low normal 10-35 (U/L) Final Performing Location [facility] [address] [place] [address]
--- OUTSIDE RECORDS SUMMARY | 2023-06-30 22:58 | External Medical Summary | Summary of Care ---
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) Chris Royal MD [address] [place] [address] Referral ID Status Reason Start Date Expiration Date Visits Requested Visits Authorized [id number] Pending Review Specialty Services Required 3 999 [...] (Late st Contact Info) Description 02/07/2023 Telephone [facility] Urology [address] [place] [address] [place] [address] Chris Royal MD [address] [place] [address] Allergies Active [...] mRNA, LNP-s, No Pre serve, 2-Dose Series ([employer]) 01/05/2021,05/07/2020,04/16/2020 COVID-19, LNP-s, No Preserve , [...] Telephone Encounter - Ena Talbot OSA - 02/26/2023 3:26 PM EST Called patient and lmom with appt for 03/01/23 per nursing. Done. * Telephone Encounter - Dee Brush RN [...] should a massage be sent directly to [facility] office. If appt is ok, I can [...] Team (Late st Contact Info) Description 03/01/2023 8:45 AM EST Office Visit Hematology/Oncology [facility] 200 [facility] [place] [address] Aguilar Lizarraga MD 200 [facility] [place] [address] 03/05/2023 11:15 AM EST [facility] [address] [place] [address] Saul Vargas MD [address] [place] [address] 03/20/2023 8:15 AM EST Office Visit Hematology/Oncology [facility] 200 [facility] [place] [address] Aguilar Lizarraga MD 200 [facility] [place] [address] 06/10/2023 2:30 PM EDT Office Visit [facility], [facility] [place] [address] Chris Royal MD 27 [facility] [address] [place] [address] 06/24/2023 10:40 AM EDT Office Visit Nephrology, [facility] 200 [facility] [place] [address] Demetrius Sherman MD 200 [facility] [place] [address] 07/25/2023 11:15 AM EDT Office Visit Hematology/Oncology [facility] [place] [address] [facility] [address] [place], [place] [address] Aguilar Lizarraga MD 200 [facility] [place], [place] [address] 11/12/2023 9:20 AM EDT Office Visit General Internal Medicine [facility] [address] [facility] [address] [place] [address] Nichole Lizarraga MD 200 [facility] [place] [address] Scheduled Referrals Name Type Priority Associated Diagnoses [...] 03/13/2023 03/13/2022, 10/20 CKD PHOS USE SMARTSET 41908 03/13/2023 03/13/2022, 0 11/09/2021 Cologuard 06/09/2023 06/08/2020, 10/25/2016 Colorectal Cancer Screening 06/09/2023 GFR 07/30/2023 01/28/2023, 12/20, 08/23/2022, Additional history exists Mammogram 10/12/2023 10/11/2022, 05/0 04/2021, 01/18/2020, Additional history exists Depression Screening 11/07/2023 11/06/2022 CKD HGB USE SMARTSET 86264 02/27/202402/26, 02/26/2023, 01/28/2023, Additional history exists DXA [...] and were consensually agreed upon. Care Teams Lamination Machine Operator Relationship Specialty Start Date End Date Nichole Lizarraga MD [address] [place], [place] [address] [address] PCP - General Internal Medicine 03/10/12 documented as of this encounter
--- OUTSIDE RECORDS SUMMARY | 2023-06-30 22:58 | External Medical Summary | Summary of Care ---
Author Name Unknown Organization [facility] Address [address] [facility] [place] [address] Phone [phone] Care Team Providers Care Dye Maker Name Role Phone Nichole Lizarraga MD Primary Care Provider + Reason for Visit * Reason Comments Outpatient Testing Encounter Details Date Type Department Care Team (Late st Contact Info) Description 03/01/2023 10:30 AM EST Laboratory [facility] [place] [address] [place] [id number] [place], [facility] [address] [place] [address] Chronic neutropenia (HCC); Large granular lymphocytic leukemia [...] mRNA, LNP-s, No Pre serve, 2-Dose Series ([employer]) 01/05/2021,05/07/2020,04/16/2020 COVID-19, LNP-s, No Preserve , Jasbir-sucrose, Ages 12+ (Pfizer) 09/06/2021 Covid-19, Mrna, Lnp-s, Pf, B ivalent, 30 Mcg, IM, 12 yrs and above (Mpayy) 01/31/2022 PPD 02/19/2017 Pneumococcal Conjugate Vacc, 13 [...] 03/05/2023 11:15 AM EST Office Visit Urology, [place] [address] [place] [address] Saul Vargas MD [address] [place] [address] 06/10/2023 2:30 PM EDT Office Visit Urology, [facility] [address] [place] [address] Chris Royal MD 27 [facility] [address] [place] [address] 06/24/2023 10:40 AM EDT Office Visit Nephrology, [facility] [address] [place] [address] [address] Demetrius Sherman MD [address] [place] [address] 07/25/2023 11:15 AM EDT Office Visit Hematology/Oncology [facility] [place] [address] [place] [address] Aguilar Lizarraga MD [address] [place] [address] 11/12/2023 9:20 AM EDT Office Visit General Internal Medicine [facility] [address] [place] [address] [address] Nichole Lizarraga MD 200 [facility] [place] [address] Pending Results Name Type Priority Associated Diagnoses Date /Time CBC WITH WBC DIFFERENTIAL Lab STAT 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) 03/01/2023 10:22 AM EST COMPREHENSIVE METABOLIC PANEL Lab STAT 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) 03/01/2023 10:22 AM EST MAGNESIUM Lab STAT 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) 03/01/2023 10:22 AM EST CBC Lab STAT 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) 03/01/2023 10:22 AM EST DIFFERENTIAL, AUTOMATED Lab STAT 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) 03/01/2023 10:22 AM EST Health Maintenance Due Date Last Done Comments Zoster Vaccines (1 of 2) 01/23/1971 Colonoscopy 01/23/1997 Fecal Occult Blood Test 01/23/1997 Sigmoidoscopy 01/23/1997 DTaP,Tdap,and Td Vaccines (2 - Td or Tdap) 09/02/2022 09/02/2012 Albumin/Creatinine Ratio 03/13/2023 03/13/2022, 10/20 CKD PHOS USE SMARTSET 67080 03/13/2023 03/13/2022, 0 11/09/2021 Cologuard 06/09/2023 06/08/2020, 10/25/2016 Colorectal Cancer Screening 06/09/2023 GFR 07/30/2023 01/28/2023, 12/20, 08/23/2022, Additional history exists Mammogram 10/12/2023 10/11/2022, 05/0 04/2021, 01/18/2020, Additional history exists Depression Screening 11/07/2023 11/06/2022 CKD HGB USE SMARTSET 20357 02/27/202402/26, 02/26/2023, 01/28/2023, Additional history exists DXA [...] were consensually agreed upon. Care Teams Dye Maker Relationship Specialty Start Date End Date Nichole Lizarraga MD 200 [facility] [place] [address] PCP - General Internal Medicine 03/10/12 documented as of this encounter
--- OUTSIDE RECORDS SUMMARY | 2023-06-30 22:58 | External Medical Summary ---
Author Name Unknown Address Unknown Organization K09:[facility] [place] [address] Laboratory Report Ordering Provider Test Date Status KEN RAY 03/01/2023 10:22:01 Final Observation Date Value Abnormality Reference (Units ) Status SYNC LEUKOCYTES IN BLOOD BY AUTOMATED COUNT 03/01/2023 10:22:01 4.01 4.00-10.80 (K/uL) Final Segs 03/01/2023 10:22:01 17.2 Below low normal 40.0-75.0 (%) Final Lymphs % 03/01/2023 10:22:01 58.1 Above high normal 18.0-42.0 (%) Final Monos 03/01/2023 10:22:01 19.0 Above high normal 1.0-11.0 (%) Final Eosinophils 03/01/2023 10:22:01 3.9 0.0-6.0 (%) Final Basos 03/01/2023 10:22:01 1.8 0.0-2.0 (%) Final Absolute Segs 03/01/2023 10:22:01 0.67 Below low normal 1.80-7.70 (K/uL) Final Lymphs, absolute 03/01/2023 10:22:01 2.26 1.00-4.80 (K/ul) Final Monos, Abs 03/01/2023 10:22:01 0.74 0.00-1.10 (K/uL) Final Eos, Abs 03/01/2023 10:22:01 0.15 0.00-0.70 (K/uL) Final Basos, Abs 03/01/2023 10:22:01 0.07 0.00-0.20 (K/uL) Final Performing Location [facility] [place] [address]
--- OUTSIDE RECORDS SUMMARY | 2023-06-30 22:58 | External Medical Summary | Summary of Care ---
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 Once signed will need to send to precert. documented in this encounter Plan of Treatment Upcoming Encounters Date Type Department Care Team (Late st Contact Info) Description 03/05/2023 11:15 AM EST Office Visit Urology, [place] [address] [place] [address] Saul Vargas MD [address] [place] [address] 06/10/2023 2:30 PM EDT Office Visit Urology, [facility] 132 [place] [address] Chris Royal MD [address] [facility] [place] [address] [facility] [place] [address] 06/24/2023 10:40 AM EDT Office Visit Nephrology, [facility] 200 [facility] [place] [address] Demetrius Sherman MD 200 [facility] [place] [address] 07/25/2023 11:15 AM EDT Office Visit Hematology/Oncology [facility] 200 [facility] [place] [address] Aguilar Lizarraga MD 200 [facility] [place] [address] 11/12/2023 9:20 AM EDT Office Visit General Internal Medicine [facility] 200 [facility] [place] [address] Nichole Lizarraga MD 200 [facility] [place] [address] Health Maintenance Due Date Last Done Comments Zoster Vaccines (1 of 2) 01/23/1971 Colonoscopy 01/23/1997 Fecal Occult Blood Test 01/23/1997 Sigmoidoscopy 01/23/1997 DTaP,Tdap,and Td Vaccines (2 - Td or Tdap) 09/02/2022 09/02/2012 Albumin/Creatinine Ratio 03/13/2023 03/13/2022, 10/20 CKD PHOS USE SMARTSET 31451 03/13/2023 03/13/2022, 0 11/09/2021 Cologuard 06/09/2023 06/08/2020, 10/25/2016 Colorectal Cancer Screening 06/09/2023 GFR 08/30/2023 03/01/2023, 01/18, 01/15/2023, Additional history exists Mammogram 10/12/2023 10/11/2022, 05/0 04/2021, 01/18/2020, Additional history exists Depression Screening 11/07/2023 11/06/2022 CKD HGB USE SMARTSET 67217 03/01/202403/01, 03/01/2023, 02/26/2023, Additional history exists DXA [...] leukemia, without mention of having achieved remission Encounter for antineoplastic chemotherapy documented in this [...] and were consensually agreed upon. Care Teams Monkey Trainer Relationship Specialty Start Date End Date Nichole Lizarraga MD 200 [place] [address] PCP - General Internal Medicine 03/10/12 documented as of this encounter
--- OUTSIDE RECORDS SUMMARY | 2023-06-30 22:58 | External Medical Summary | Summary of Care ---
Author Name Unknown Organization [facility] Address [address] [facility] [address] Phone [phone] Care Team Providers Care Addiction Specialist Name Role Phone Nichole Lizarraga MD Primary Care Provider + Reason for Visit * Reason Onset Date Comments Precert Future 03/01/2023 Encounter Details Date Type Department Care Team (Late st Contact Info) Description 03/01/2023 Telephone Hematology/Oncology Treatment, [place] [address] [place] [address] Aguilar Lizarraga MD 200 [place] [address] Precert Future Allergies Active Allergy Reactions Criticality [...] mRNA, LNP-s, No Pre serve, 2-Dose Series ([employer]) 01/05/2021,05/07/2020,04/16/2020 COVID-19, LNP-s, No Preserve , Jasbir-sucrose, [...] PM EST Order received for cisplatin/ gemzar. [place] plan built and routed for signature. Waiting for auth. Consent signed 03/01/23. Hep B labs drawn 03/01/23. Nurse education 03/01/23. Patient has appt with urology in [place] 03/05/23- waiting until after this appt for [...] 03/05/2023 11:15 AM EST Office Visit Urology, [place] [address] [place], [place] [id number] Saul Vargas MD [address] [place] [address] 06/10/2023 2:30 PM EDT Office Visit Urology, [facility] [address] [facility] [place] [address] Chris Royal MD [address] [place] [address] [place] [address] 06/24/2023 10:40 AM EDT Office Visit Nephrology, [facility] 200 [facility] [place] [address] Demetrius Sherman MD 200 [facility] [place] [address] 07/25/2023 11:15 AM EDT Office Visit Hematology/Oncology [facility] 200 [facility] [place] [address] Aguilar Lizarraga MD 200 [facility] [place] [address] 11/12/2023 9:20 AM EDT Office Visit General Internal Medicine [facility] 200 [facility] [place] [address] Nichole Lizarraga MD 200 [facility] [place] [address] Health Maintenance Due Date Last Done Comments Zoster Vaccines (1 of 2) 01/23/1971 Colonoscopy 01/23/1997 Fecal Occult Blood Test 01/23/1997 Sigmoidoscopy 01/23/1997 DTaP,Tdap,and Td Vaccines (2 - Td or Tdap) 09/02/2022 09/02/2012 Albumin/Creatinine Ratio 03/13/2023 03/13/2022, 10/20 CKD PHOS USE SMARTSET 58323 03/13/2023 03/13/2022, 0 11/09/2021 Cologuard 06/09/2023 06/08/2020, 10/25/2016 Colorectal Cancer Screening 06/09/2023 GFR 08/30/2023 03/01/2023, 01/18, 01/15/2023, Additional history exists Mammogram 10/12/2023 10/11/2022, 05/0 04/2021, 01/18/2020, Additional history exists Depression Screening 11/07/2023 11/06/2022 CKD HGB USE SMARTSET 47887 03/01/202403/01, 03/01/2023, 02/26/2023, Additional history exists DXA [...] Code 02/04/2023 9:25 AM 02/04/2023 2:55 PM Th is order reflects the patients wishes and were [...] and were consensually agreed upon. Care Teams Addiction Specialist Relationship Specialty Start Date End Date Nichole Lizarraga MD 200 [facility] [place] [address] PCP - General Internal Medicine 03/10/12 documented as of this encounter
--- OUTSIDE RECORDS SUMMARY | 2023-06-30 22:58 | External Medical Summary | Summary of Care ---
Author Name Unknown Organization [facility] Address [address] [facility] [address] Phone [phone] Care Team Providers Care Vp Informatics Name Role Phone Nichole Lizarraga MD Primary Care Provider + Reason for Visit * Reason Onset Date Comments Precert Future 03/01/2023 Encounter Details Date Type Department Care Team (Late st Contact Info) Description 03/01/2023 Telephone Hematology/Oncology Treatment, [place] [address] [place] [address] Aguilar Lizarraga MD 200 [place] [address] Precert Future Allergies Active Allergy Reactions Criticality [...] mRNA, LNP-s, No Pre serve, 2-Dose Series ([employer]) 01/05/2021,05/07/2020,04/16/2020 COVID-19, LNP-s, No Preserve , Jasbir-sucrose, [...] PM EST Order received for cisplatin/ gemzar. [place] plan built and routed for signature. Waiting for auth. Consent signed 03/01/23. Patient went to have hep B labs drawn; however, these ordered were not released by lab. Nurse education 03/01/23. Patient has appt with urology in [place] 03/05/23- waiting until after this appt for [...] 03/05/2023 11:15 AM EST Office Visit Urology, [place] [address] [facility] [place] [id number] Saul Vargas MD [address] [place] [address] 06/10/2023 2:30 PM EDT Office Visit Urology, [facility] [address] [facility] [place] [address] Chris Royal MD 27 [facility] [place] [address] [place] [address] 06/24/2023 10:40 AM EDT Office Visit Nephrology, [facility] 200 [facility] [place] [facility] [place] [address] Demetrius Sherman MD 200 [facility] [place] [address] 07/25/2023 11:15 AM EDT Office Visit Hematology/Oncology [facility] 200 [facility] [place] [address] Aguilar Lizarraga MD 200 [facility] [place] [address] 11/12/2023 9:20 AM EDT Office Visit General Internal Medicine [facility] 200 [facility] [place] [address] Nichole Lizarraga MD 200 [facility] [place] [address] Health Maintenance Due Date Last Done Comments Zoster Vaccines (1 of 2) 01/23/1971 Colonoscopy 01/23/1997 Fecal Occult Blood Test 01/23/1997 Sigmoidoscopy 01/23/1997 DTaP,Tdap,and Td Vaccines (2 - Td or Tdap) 09/02/2022 09/02/2012 Albumin/Creatinine Ratio 03/13/2023 03/13/2022, 10/20 CKD PHOS USE SMARTSET 23758 03/13/2023 03/13/2022, 0 11/09/2021 Cologuard 06/09/2023 06/08/2020, 10/25/2016 Colorectal Cancer Screening 06/09/2023 GFR 08/30/2023 03/01/2023, 01/18, 01/15/2023, Additional history exists Mammogram 10/12/2023 10/11/2022, 05/0 04/2021, 01/18/2020, Additional history exists Depression Screening 11/07/2023 11/06/2022 CKD HGB USE SMARTSET 72195 03/01/202403/01, 03/01/2023, 02/26/2023, Additional history exists DXA [...] and were consensually agreed upon. Care Teams Vp Informatics Relationship Specialty Start Date End Date Nichole Lizarraga MD [address] [place] [address] PCP - General Internal Medicine 03/10/12 documented as of this encounter
--- OUTSIDE RECORDS SUMMARY | 2023-06-30 22:58 | External Medical Summary | Summary of Care ---
Author Name Unknown Organization [facility] Address [address] [facility] [place] [address] Phone [phone] Care Team Providers Care Spot Worker Name Role Phone Nichole Lizarraga MD Primary Care Provider + Reason for Visit * Reason Onset Date Comments Medication Problem 02/28/2023 Encounter Details Date Type Department Care Team (Late st Contact Info) Description 02/28/2023 Telephone Hematology/Oncology [facility] [place] 200 [facility] [place] [address] Aguilar Lizarraga MD 200 [facility] [address] Medication Problem Allergies Active Allergy Reactions Criticality Noted Date Comments Penicillins Edema airway,Rash High 03/10/2012 Last dose age 14 Pollen 01/17/2021 Ragweed 11/05/2022 documented as of this encounter (statuses as of 02/28/2023) Medications Medication Sig Dispensed Refills Start Date [...] as of this encounter (statuses as of 02/28/2023) Active Problems Problem Noted Date Diagnosed Date Postmenopausal atrophic vaginitis 09/04/2022 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 Chronic kidney disease, stage 3b 04/30/2022 Overview: Per CKD protocol Urgency of urination 01/17/2021 Malignant neoplasm of dome of urinary bladder Hydronephrosis, left 11/23/2020 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 Other neutropenia 11/14/2018 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 Chronic neutropenia 01/06/2018 documented as of this encounter (statuses as of 02/28/2023) Resolved Problems Problem Noted Date Diagnosed Date Resolved Date Chronic kidney disease, stage 3a 05/29/2021 05/02/2022 Overview: Per CKD protocol Fever 09/13/2015 10/21/2017 Kidney stone on left side Inguinal hernia 10/21/2017 Overview: Surgical repair Neutropenia 10/21/2017 documented as of this encounter (statuses as of 02/28/2023) Immunizations Name Administration Dates Next Due COVID-19 mRNA, LNP-s, No Pre serve, 2-Dose Series ([employer]) 01/05/2021,05/07/2020,04/16/2020 COVID-19, LNP-s, No Preserve , Jasbir-sucrose, Ages 12+ ([employer]rium[employer]) 09/06/2021 Covid-19, Mrna, Lnp-s, Pf, B ivalent, [...] encounter Miscellaneous Notes * Telephone Encounter - Sheba Mejia PHARM Tech - 02/28/2023 3:22 PM EST Transferred to specialty line Thank you for your assistance Sheba Mejia [facility] ([facility]) (Formerly Telepharm[facility]) 02/28/2023,3:22 PM documented in this encounter Plan of Treatment Upcoming Encounters Date Type Department Care Team (Late st Contact Info) Description 03/01/2023 8:45 AM EST Office Visit Hematology/Oncology [facility] 200 [facility] [place] [address] Aguilar Lizarraga MD [address] [facility] [place] [address] 03/05/2023 11:15 AM EST Office Visit Urology, [place] [address] [place] [address] Saul Vargas MD [address] [place] [address] 06/10/2023 2:30 PM EDT Office Visit Urology, [facility] 132 [facility] [place] [address] Chris Royal MD 27 [facility] [address] [place] [address] 06/24/2023 10:40 AM EDT Office Visit Nephrology, [facility] 200 [facility] [place] [address] Demetrius Sherman MD 200 [facility] [place] [address] 07/25/2023 11:15 AM EDT Office Visit Hematology/Oncology [facility] 200 [facility] [place], [place] [address] Aguilar Lizarraga MD 200 [facility] [place] [address] 11/12/2023 9:20 AM EDT Office Visit General Internal Medicine [facility] 200 [facility] [place], [place] [address] Nichole Lizarraga MD 200 [facility] [place] [address] Health Maintenance Due Date Last Done Comments Zoster Vaccines (1 of 2) 01/23/1971 Colonoscopy 01/23/1997 Fecal Occult Blood Test 01/23/1997 Sigmoidoscopy 01/23/1997 DTaP,Tdap,and Td Vaccines (2 - Td or Tdap) 09/02/2022 09/02/2012 Albumin/Creatinine Ratio 03/13/2023 03/13/2022, 10/20 CKD PHOS USE SMARTSET 32194 03/13/2023 03/13/2022, 0 11/09/2021 Cologuard 06/09/2023 06/08/2020, 10/25/2016 Colorectal Cancer Screening 06/09/2023 GFR 07/30/2023 01/28/2023, 12/20, 08/23/2022, Additional history exists Mammogram 10/12/2023 10/11/2022, 05/0 04/2021, 01/18/2020, Additional history exists Depression Screening 11/07/2023 11/06/2022 CKD HGB USE SMARTSET 60023 02/27/202402/26, 02/26/2023, 01/28/2023, Additional history exists DXA [...] and were consensually agreed upon. Care Teams Spot Worker Relationship Specialty Start Date End Date Nichole Lizarraga MD [address] [place] [address] PCP - General Internal Medicine 03/10/12 documented as of this encounter
--- OUTSIDE RECORDS SUMMARY | 2023-06-30 22:58 | External Medical Summary | Summary of Care ---
Author Name Unknown Organization [facility] Address [address] [place] [address] Phone [phone] Care Team Providers Care Mailroom Coordinator Name Role Phone Nichole Lizarraga MD Primary Care Provider + Encounter Details Date Type Department Care Team (Late st Contact Info) Description 03/01/2023 Education Visit Hematology/Oncology Treatment, [place] [address] [place] [address] Dee Brush, RN Malignant neoplasm of dome [...] mRNA, LNP-s, No Pre serve, 2-Dose Series ([employer]) 01/05/2021,05/07/2020,04/16/2020 COVID-19, LNP-s, No Preserve , Jasbir-sucrose, [...] Nursing Notes * Dee Brush RN - 03/01/2023 1:44 PM EST Nurse education for cisplatin/ gemzar completed. documented in this encounter Plan of Treatment Upcoming Encounters Date Type Department Care Team (Late st Contact Info) Description 03/05/2023 11:15 AM EST Office Visit Urology, [place] [address] [place] [address] Saul Vagras MD [address] [place] [address] 06/10/2023 2:30 PM EDT Office Visit Urology, [facility] 132 [facility] [place] [address] Chris Royal MD 27 [facility] [address] [place] [address] 06/24/2023 10:40 AM EDT Office Visit Nephrology, [facility] [place] [address] [place] [address] Demetrius Sherman MD 200 [place] [address] 07/25/2023 11:15 AM EDT Office Visit Hematology/Oncology [place] [address] [place] [address] Aguilar Lizarraga MD [address] [place] [address] 11/12/2023 9:20 AM EDT Office Visit General Internal Medicine [place] [address] [place] [address] Nichole Lizarraga MD 200 [facility] [place] [address] Health Maintenance Due Date Last Done Comments Zoster Vaccines (1 of 2) 01/23/1971 Colonoscopy 01/23/1997 Fecal Occult Blood Test 01/23/1997 Sigmoidoscopy 01/23/1997 DTaP,Tdap,and Td Vaccines (2 - Td or Tdap) 09/02/2022 09/02/2012 Albumin/Creatinine Ratio 03/13/2023 03/13/2022, 10/20 CKD PHOS USE SMARTSET 85400 03/13/2023 03/13/2022, 0 11/09/2021 Cologuard 06/09/2023 06/08/2020, 10/25/2016 Colorectal Cancer Screening 06/09/2023 GFR 08/30/2023 03/01/2023, 01/18, 01/15/2023, Additional history exists Mammogram 10/12/2023 10/11/2022, 05/0 04/2021, 01/18/2020, Additional history exists Depression Screening 11/07/2023 11/06/2022 CKD HGB USE SMARTSET 90963 03/01/202403/01, 03/01/2023, 02/26/2023, Additional history exists DXA [...] and were consensually agreed upon. Care Teams Mailroom Coordinator Relationship Specialty Start Date End Date Nichole Lizarraga MD 200 [place] [address] PCP - General Internal Medicine 03/10/12 documented as of this encounter
--- OUTSIDE RECORDS SUMMARY | 2023-06-30 22:58 | External Medical Summary | Summary of Care ---
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 1 Inhaler 5 04/21/2018 Active Econazole Nitrate 1 % External Cream (Spectazole)Indic ations:Tinea pedis of both feet,Onychomycosi s Apply 2x daily from ankles down to feet/nails 2x daily for about 1 month until resolved, then 2x weekly to maintain clearance 170 g 2 11/21/2021 Active Solifenacin Succinate 5 MG Oral Tablet (VESIcare) Take 1 Tablet by mouth in the morning. 90 Tablet 3 06/21/2022 Active Azelastine HCl 137 MCG/SPRAY Nasal SolutionIndicatio ns:Chronic sinusitis, unspecified location ADMINISTER 1 SPRAY INTO NOSTRIL 2 TIMES A DAY. 90 mL 3 09/10/2022 Active Zarxio 300 MCG/0.5ML Injection Solution Prefilled Syringe (Filgrastim-sndz) Indications:Chron ic neutropenia (HCC),Large granular lymphocytic leukemia (HCC) Inject 300 mcg (1 syringe) under the skin for 4 days a week 8 mL 5 12/04/2022 Active Sulfamethoxazole- Trimethoprim 800-160 MG Oral Tablet (Bactrim DS) Take 1 Tablet by mouth in the morning and 1 Tablet before bedtime. 6 Tablet 0 02/04/2023 Active Additional Information Patient not taking.Reported on 03/01/2023 Phenazopyridine HCl 200 MG Oral Tablet (Pyridium) Take 1 Tablet by mouth 3 times a day as needed for Other (bladder spasms). After meals. 15 Tablet 0 02/04/2023 Active oxyCODONE-Acetami nophen 5-325 MG Oral Tablet (Percocet) Take 1 Tablet by mouth every 6 hours as needed for Pain, Severe. 14 Tablet 0 02/04/2023 Discontinue d(Medicatio n List Clean Up) documented as of this encounter (statuses as [...] mRNA, LNP-s, No Pre serve, 2-Dose Series (Tangible [employer]) 01/05/2021,05/07/2020,04/16/2020 COVID-19, LNP-s, No Preserve , Jasbir-sucrose, [...] Sign Reading Time Taken Comments Blood Pressure 127/80 03/01/2023 8:36 AM EST Pulse 72 03/01/2023 8:36 AM EST Temperature 36.8 C (98.3 F) 03/01/2023 8:36 AM ES T Respiratory Rate 16 03/01/2023 8:36 AM EST Oxygen Saturation 97% 03/01/2023 8:36 AM EST Inhaled Oxygen Concentration - - Weight 55.8 kg (123 lb 1.6 oz) 03/01/2023 8:36 A M EST Height 167 cm (5' 5.75") 03/01/2023 8:36 AM EST Body Mass Index 20.02 03/01/2023 8:36 AM EST documented in this encounter Progress Notes * Aguilar Lizarraga MD - 03/01/2023 8:45 AM EST Antony: Linsey Estrella :1950 73-year-old female, DIAGNOSIS: [...] and is involved. - Lymphovascular invasion identified. CURRENT TREATMENT: As of 01/23/2022, she is on Neupogen at 300 microgram 4 days a week ( Saturday, Saturday, Saturday). -will continue G-CSF 4 days a week for now. Regarding bladder cancer, I would consider for neoadjuvant chemotherapy with gemcitabine and cisplatin, She seeing urologist Dr. Vargas next week and let us see what he suggests. She is at high risk for febrile neutropenia and I would like to increase the dose of G-CSF to 480 microgram 4 days a week while she will be on the chemotherapy. Chemotherapy schedule: -gemcitabine on 1000 mg/m on day 1 and day 8 -cisplatin ( split dose) 35 mg/m on day 1 and day 8 Repeating every 21 days. PREVIOUS TREATMENT: She had received briefly Neupogen treatment. - Received Neupogen at 300 mcg initially twice a week with some slight improvement of the WBC count, change to once a week somewhere in December,. No significant improvement of the white blood cell count noted, in August, decided to discontinue Neupogen therapy, - She was seen by home service advisor Dr. Viky Sequeira at [facility], I reviewed consult note, suggested to start [...] has come the clinic for the follow-up, she came to clinic accompanied by her in the office. Overall she says that she had a good year, no new hematuria, no fever, no night sweats, good appetite, stable weight around 124 lb. Earlier she completed intravesical BCG treatment. She also follows with Dr. Royal. Currently she is injecting G-CSF 4 days in a week. Past Medical History: Diagnosis Date Inguinal hernia 02/18/1999 Surgical repair Kidney stone on left side 02/19/1996 Leukemia (HCC) Large granular lymphocytic leukemia Neutropenia (HCC) PONV (postoperative nausea and vomiting) Past Surgical History: Procedure Laterality Date CYSTOSCOPY/TREAT MINOR LESION(S) N/A 01/09/2021 CYSTOURETHROSCOPY WITH FULGURATION MINOR BLADDER TUMOR performed by Chris Royal MD at OR [facility] CYSTOSCOPY/TREAT MINOR LESION(S) N/A 06/05/2021 CYSTOURETHROSCOPY WITH FULGURATION MINOR BLADDER TUMOR performed by Chris Royal MD at OR [facility] CYSTOSCOPY/TREAT SML BLADDER TUMOR N/A 02/04/2023 CYSTOURETHROSCOPY WITH FULGURATION SMALL BLADDER TUMOR performed by Chris Royal MD at [facility] DENTAL SURGERY PROCEDURE NEC INCISION OF WIN[place], PLANNED Left 02/04/2017 TRACHEOSTOMY PLANNED performed by Nick Singh DO at OR [facility] INFORMATION 02/04/2017 never had a trach INFORMATION 1989 kidney stone removal LAPARO REMOVE K/URETER Left 02/01/2021 LAPAROSCOPIC NEPHRECTOMY TOTAL URETERECTOMY performed by Chris Royal MD at OR [facility] LARYNGOSCOPY, VOCAL CORD EXCISION/STRIPPING Left 02/04/2017 LARYNGOSCOPY DIRECT STRIPPING VOCAL CORD WITH MICROSCOPE performed by Nick Singh DO at OR [facility] REPAIR INITIAL INGUINAL HERNIA REDUCIBLE AGE 7 [...] 1 Tablet before bedtime. 6 Tablet 0 oxyCODONE-Acetaminophen 5-325 MG Oral Tablet (Percocet) Take 1 Tablet by mouth every 6 hours as needed for Pain, Severe. 14 Tablet 0 Phenazopyridine HCl 200 MG Oral Tablet (Pyridium) Take 1 Tablet by mouth 3 times a day as needed for Other (bladder spasms). After meals. 15 Tablet 0 No current facility-administered medications for [...] file Gets together: Not on file Attends taoist service: Not on file Active member of [...] Narrative Not on file On exam: BP 127/80 (BP Site: Left Arm, BP Position: Sitting, BP Cuff Size: Regular) | Pulse 72 | Temp 36.8 C (98.3 F) (Tympanic) | Resp 16 | Ht 1.67 m (5' 5.75") | Wt 55.8 kg (123 lb 1.6 oz) | SpO2 97% | BMI 20.02 kg/m | BSA 1.61 m Constitutional: Patient is alert, cooperative and oriented x 3. Well built woman, Patient is in no acute distress. HEENT: No icterus, no pallor, Throat and pharynx normal. Sinuses are [...] SPINE: No spinal or paraspinal tenderness. LABS: She gets blood workup every monthly. Blood workup done on 12/13/2022: - WBC 5700, H&H of 12.5/38, platelet count of one 63,000 - ANC 680, Absolute Lymphocyte count 3800. - Serum creatinine level --> 1.2 (01/15/2023). Blood workup done on 02/26/2023: -WBC 5800, H&H of 13.7/42, Platelet count of 763506 -ANC 1400 -Absolute lymphocyte count 3000. -normal LFT (01/28/2023). -BUN/Creat: 17/1.3, Calcium 9.2.(01/28/2023) CT scan of the abdomen pelvis (05/22/2021 [...] -no suspicious lung nodules or lymphadenopathy noted. ASSESSMENT AND PLAN: 72-year-old the female, who has chronic neutropenia since 2013, received briefly Neupogen treatmentwith some partial response [...] or skin rash. She was seen by home service advisor Dr. Viky Sequeira at [facility] in February 2018, additional MDS workup once [...] a week, improvement of the ANC noted. No new infectious complications. Will continue Neupogen 4 days a week. [...] confirmed high-grade urothelial carcinoma with muscle invasion. No evidence of distant metastases, no lymphadenopathy noted in the abdomen and pelvis. Reviewed with regarding information outlined on NCCN website Discussed with her and her regarding role of neoadjuvant chemotherapy gemcitabine cisplatinthat can be considered. She has abnormal kidney functions and so I would like to give her split dose of cisplatin. She is at high risk for febrile neutropenia especially with the baseline neutropenia, I would like to continue G-CSF but would like to increase dose to 480 microgram 4 days a week and see how she does. She has an appointment Dr. Vargas and see what he suggests. Once we start on treatment, will see her before the 2nd cycle. Dr. Aguilar Lizarraga Hem/Onc (This note was completed using the dictation program Fluency Direct. As such, there may be misspellings word substitutions, or other variations that should not change the essence of the clinical content of this encounter note. If there is need for further clarification, please direct questions to the provider listed above.) documented in this encounter Nursing Notes * Sujata Berger CMA - 03/01/2023 8:37 AM EST Patient identifed by name and birthdate Do you have any concerns about pain management for today's visit? No Living Will or Advance Directive for Health Care as noted on the problem list. [facility] is a way you can talk to your provider on line through e-mail. Would you like to sign up? I can activate it for you? ALREADY ACTIVE Filed Vitals: 03/01/23 0836 BP: 127/80 Pulse: 72 Resp: 16 Temp: 36.8 C (98.3 F) TempSrc: Tympanic SpO2: 97% Weight: 55.8 kg (123 lb 1.6 oz) Height: 1.67 m (5' 5.75") Patient was instructed to not get up on the exam table/exam chair until directed and assisted by their provider; patient is to remain seated in the chair/ wheelchair/ exam table/ exam chair for fall prevention and safety reasons. Patient is aware to have assistance to step down off exam table/exam chair with personnel. Patient voiced full comprehension of instructions. documented in this encounter Plan of Treatment Upcoming Encounters Date Type Department Care Team (Late st Contact Info) Description 03/05/2023 11:15 AM EST Office Visit Urology, [place] [address] [place] [address] Saul Vargas MD [address] [place] [address] 06/10/2023 2:30 PM EDT Office Visit Urology, [facility] [address] [place] [address] Chris Royal MD [address] [facility] [address] [place] [address] 06/24/2023 10:40 AM EDT Office Visit Nephrology, [facility] [address] [place] [address] Demetrius Sherman MD [address] [place] [address] 07/25/2023 11:15 AM EDT Office Visit Hematology/Oncology [facility] [address] [facility] [place] [address] Aguilar Lizarraga MD [address] [place] [address] 11/12/2023 9:20 AM EDT Office Visit General Internal Medicine [facility] [address] [facility] [place] [address] Nichole Lizarraga MD [address] [place] [address] Scheduled Orders Name Type Priority Associated Diagnoses Orde r Schedule HEPATITIS B SURFACE ANTIBODY Lab STAT 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) Expected: 03/01/2023 (Approximate), Expires: 03/01/2024 HEPATITIS B SURFACE ANTIGEN Lab STAT 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) Expected: 03/01/2023 (Approximate), Expires: 03/01/2024 HEPATITIS B CORE ANTIBODIES IGG AND IGM Lab STAT 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) Expected: 03/01/2023 (Approximate), Expires: 03/01/2024 CBC WITH WBC DIFFERENTIAL Lab STAT 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) Every Week for 52 Occurrences starting 03/01/2023 until 03/01/2024, 1 completed COMPREHENSIVE METABOLIC PANEL Lab STAT 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) Every Week for 52 Occurrences starting 03/01/2023 until 03/01/2024, 1 completed MAGNESIUM Lab STAT 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) Every Week for 52 Occurrences starting 03/01/2023 until 03/01/2024, 1 completed Health Maintenance Due Date Last Done Comments Zoster Vaccines (1 of 2) 01/23/1971 Colonoscopy 01/23/1997 Fecal Occult Blood Test 01/23/1997 Sigmoidoscopy 01/23/1997 DTaP,Tdap,and Td Vaccines (2 - Td or Tdap) 09/02/2022 09/02/2012 Albumin/Creatinine Ratio 03/13/2023 03/13/2022, 10/20 CKD PHOS USE SMARTSET 19574 03/13/2023 03/13/2022, 0 11/09/2021 Cologuard 06/09/2023 06/08/2020, 10/25/2016 Colorectal Cancer Screening 06/09/2023 GFR 08/30/2023 03/01/2023, 01/18, 01/15/2023, Additional history exists Mammogram 10/12/2023 10/11/2022, 05/0 04/2021, 01/18/2020, Additional history exists Depression Screening 11/07/2023 11/06/2022 CKD HGB USE SMARTSET 93523 03/01/202403/01, 03/01/2023, 02/26/2023, Additional history exists DXA [...] filedocumented as of this encounter Results * MAGNESIUM (03/01/2023 10:22 AM EST) Magnesium 2.2 1.5 - 2.6 mg/dL 03/01/2023 11:05 AM [facility] 56- Blood Venous blood specimen / Unknown Venipuncture / Unknown 03/01/2023 10:22 AM EST 03/01/2023 10:22 AM EST Aguilar Lizarraga MD LAB BLOOD ORDERABLES [facility] 56- [address] [place] [address] * (ABNORMAL) COMPREHENSIVE METABOLIC PANEL (03/01/2023 10:22 AM EST) BUN 12 6 - 20 mg/dL 03/01/2023 11:05 AM EST [facility] 56- Creatinine 1.3(H) 0.5 - 1.0 mg/dL 03/01/2023 11:05 AM [facility] 56- Estimated Glomerular Filtration Rate 45(L) >=60 mL/min 03/01/2023 11:05 AM EST [facility] 56- Comment:eGFR is calculated b ased on the CKD-EPI 2020 equation Sodium 142 135 - 146 mmol/L 03/01/2023 11:05 AM [facility] 56- Potassium 4.1 3.5 - 5.1 mmol/L 03/01/2023 11:05 AM [facility] 56- Chloride 107 98 - 107 mmol/L 03/01/2023 11:05 AM [place] [address]- CO2 27 22 - 32 mmol/L 03/01/2023 11:[address] Anion Gap 8 7 - 15 mmol/L 03/01/2023 11:[address] Glucose 99 70 - 120 mg/dL 03/01/2023 11:[address] Albumin 4.0 3.8 - 5.0 g/dL 03/01/2023 11:[address] AST 18 10 - 35 U/L 03/01/2023 11:[address] Alkaline Phosphatase 79 35 - 130 U/L 03/01/2023 11:[address] Bilirubin, Total 0.6 <=1.2 mg/dL 03/01/2023 11:[address] Calcium 9.3 8.4 - 10.2 mg/dL 03/01/2023 11:05 AM [facility] 56- Protein 7.2 6.0 - 8.3 g/dL 03/01/2023 11:05 AM [place] [address]- ALT 7(L) 10 - 35 U/L 03/01/2023 11:05 AM [facility] 56- Blood Venous blood specimen / Unknown Venipuncture / Unknown 03/01/2023 10:22 AM EST 03/01/2023 10:22 AM EST Aguilar Lizarraga MD LAB BLOOD ORDERABLES [facility] [address] [place] [address] documented in this encounter Visit Diagnoses Diagnosis [...] and were consensually agreed upon. Care Teams Product Tester Fiberglass Relationship Specialty Start Date End Date Nichole Lizarraga MD [address] [place] [address] PCP - General Internal Medicine 03/10/12 documented as of this encounter
--- OUTSIDE RECORDS SUMMARY | 2023-06-30 22:58 | External Medical Summary | Summary of Care ---
Author Name Unknown Organization [facility] Address [address] [facility] [place] [address] Phone [phone] Care Team Providers Care Acoustical Tile Drill Press Operator Name Role Phone Nichole Lizarraga MD Primary Care Provider + Reason for Visit * Reason Comments Outpatient Testing Encounter Details Date Type Department Care Team (Late st Contact Info) Description 03/01/2023 10:30 AM EST Laboratory [facility] [place] [address] [place] [id number] [place], [facility] [address] [place] [address] Chronic neutropenia (HCC); Large granular lymphocytic leukemia [...] mRNA, LNP-s, No Pre serve, 2-Dose Series ([address]) 01/05/2021,05/07/2020,04/16/2020 COVID-19, LNP-s, No Preserve , Jasbir-sucrose, [...] 03/05/2023 11:15 AM EST Office Visit Urology, [place] [address] [place] [address] Saul Vargas MD [address] [place] [address] 06/10/2023 2:30 PM EDT Office Visit Urology, [facility] [address] [place] [address] Chris Royal MD 27 [facility] [address] [place] [address] 06/24/2023 10:40 AM EDT Office Visit Nephrology, [facility] [address] [place] [address] Demetrius Sherman MD [address] [place] [address] 07/25/2023 11:15 AM EDT Office Visit Hematology/Oncology [facility] [address] [place] [address] Aguilar Lizarraga MD [address] [place] [address] 11/12/2023 9:20 AM EDT Office Visit General Internal Medicine [facility] [address] [place] [address] Nichole Lizarraga MD [address] [facility] [place] [address] Health Maintenance Due Date Last Done Comments Zoster Vaccines (1 of 2) 01/23/1971 Colonoscopy 01/23/1997 Fecal Occult Blood Test 01/23/1997 Sigmoidoscopy 01/23/1997 DTaP,Tdap,and Td Vaccines (2 - Td or Tdap) 09/02/2022 09/02/2012 Albumin/Creatinine Ratio 03/13/2023 03/13/2022, 10/20 CKD PHOS USE SMARTSET 47482 03/13/2023 03/13/2022, 0 11/09/2021 Cologuard 06/09/2023 06/08/2020, 10/25/2016 Colorectal Cancer Screening 06/09/2023 GFR 08/30/2023 03/01/2023, 01/18, 01/15/2023, Additional history exists Mammogram 10/12/2023 10/11/2022, 05/0 04/2021, 01/18/2020, Additional history exists Depression Screening 11/07/2023 11/06/2022 CKD HGB USE SMARTSET 72869 03/01/202403/01, 03/01/2023, 02/26/2023, Additional history exists DXA [...] Date/Time Associated Diagnosis Comments DIFFERENTIAL, AUTOMATED STAT 03/01/2023 10:22 AM EST 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) COMPREHENSIVE METABOLIC PANEL STAT 03/01/2023 10:22 AM EST 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) CBC STAT 03/01/2023 10:22 AM EST 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) CBC STAT 03/01/2023 10:22 AM EST 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) DIFFERENTIAL, TECHNOLOGIST REVIEW Routine 03/01/2023 10:22 AM EST 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) MAGNESIUM STAT 03/01/2023 10:22 AM EST 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) documented in this encounter Results * (ABNORMAL) DIFFERENTIAL, TECHNOLOGIST REVIEW (03/01/2023 10:22 AM EST) nRBCs 03/01/2023 11:16 AM EST [facility] [place] 56-02 Reactive Lymphocytes Present(A ) None Seen 03/01/2023 11:16 AM EST [facility] 56-02 Blood Venous blood specimen / Unknown Venipuncture / Unknown 03/01/2023 10:22 AM EST 03/01/2023 10:22 AM EST Aguilar Lizarraga MD LAB BLOOD ORDERABLES [facility] [address] [place] [id number] * (ABNORMAL) DIFFERENTIAL, AUTOMATED (03/01/2023 10:22 AM EST) WBC 4.01 4.00 - 10.80 K/uL 03/01/2023 11:16 AM EST [facility] 56-02 Neutrophils % 17.2(L) 40.0 - 75.0 % 03/01/2023 11:16 AM EST [facility] 56-02 Lymphocytes % 58.1(H) 18.0 - 42.0 % 03/01/2023 11:16 AM EST [facility] 56-02 Monocytes % 19.0(H) 1.0 - 11.0 % 03/01/2023 11:16 AM EST [facility] 56- Eosinophils % 3.9 0.0 - 6.0 % 03/01/2023 11:16 AM EST [facility] 56-02 Basophils % 1.8 0.0 - 2.0 % 03/01/2023 11:16 AM EST [facility] 56-02 Absolute Neutrophils 0.67(L) 1.80 - 7.70 K/uL 03/01/2023 11:16 AM EST [facility] 56-02 Absolute Lymphocytes 2.26 1.00 - 4.80 K/ul 03/01/2023 11:16 AM EST [facility] 56-02 Absolute Monocytes 0.74 0.00 - 1.10 K/uL 03/01/2023 11:16 AM EST [facility] 56-02 Absolute Eosinophils 0.15 0.00 - 0.70 K/uL 03/01/2023 11:16 AM [facility] 56-02 Absolute Basophils 0.07 0.00 - 0.20 K/uL 03/01/2023 11:16 AM [facility] 56-02 Blood Venous blood specimen / Unknown Venipuncture / Unknown 03/01/2023 10:22 AM EST 03/01/2023 10:22 AM EST Aguilar Lizarraga MD LAB BLOOD ORDERABLES [facility] 56- [address] [place] [address] * CBC (03/01/2023 10:22 AM EST) WBC 4.01 4.00 - 10.80 K/uL 03/01/2023 11:16 AM [facility] 56 RBC 4.51 3.85 - 5.15 M/uL 03/01/2023 11:[address] HGB 13.3 12.0 - 15.3 g/dL 03/01/2023 11:[address] HCT 41.3 36.0 - 45.2 % 03/01/2023 11:[address] MCV 91.6 81.5 - 97.5 fL 03/01/2023 11:[address] MCH 29.5 27.0 - 34.0 pg 03/01/2023 11:[address] MCHC 32.2 32.0 - 36.0 g/dL 03/01/2023 11:[address] RDW 15.7 11.5 - 15.5 % 03/01/2023 11:16 AM [facility] 56 PLT 160 140 - 400 K/uL 03/01/2023 11:16 AM [facility] 56 MPV 12.6 6.6 - 11.1 fL 03/01/2023 11:16 AM [facility] 56 Blood Venous blood specimen / Unknown Venipuncture / Unknown 03/01/2023 10:22 AM EST 03/01/2023 10:22 AM EST Aguilar Lizarraga MD LAB BLOOD ORDERABLES [facility] 56- [address] [place] [address] * MAGNESIUM (03/01/2023 10:22 AM EST) Magnesium 2.2 1.5 - 2.6 mg/dL 03/01/2023 11:05 AM [facility] 56- Blood Venous blood specimen / Unknown Venipuncture / Unknown 03/01/2023 10:22 AM EST 03/01/2023 10:22 AM EST Aguilar Lizarraga MD LAB BLOOD ORDERABLES [facility] [address] [place] [address] * (ABNORMAL) COMPREHENSIVE METABOLIC PANEL (03/01/2023 10:22 AM EST) BUN 12 6 - 20 mg/dL 03/01/2023 11:[address] Creatinine 1.3(H) 0.5 - 1.0 mg/dL 03/01/2023 11:[address] Estimated Glomerular Filtration Rate 45(L) >=60 mL/min 03/01/2023 11:05 AM [facility] 56 Comment:eGFR is calculated b ased on the CKD-EPI 2020 equation Sodium 142 135 - 146 mmol/L 03/01/2023 11:[address] Potassium 4.1 3.5 - 5.1 mmol/L 03/01/2023 11:05 AM [facility] 56- Chloride 107 98 - 107 mmol/L 03/01/2023 11:05 AM [facility] 56- CO2 27 22 - 32 mmol/L 03/01/2023 11:05 AM [facility] 56 Anion Gap 8 7 - 15 mmol/L 03/01/2023 11:05 AM [facility] 56- Glucose 99 70 - 120 mg/dL 03/01/2023 11:05 AM [facility] 56- Albumin 4.0 3.8 - 5.0 g/dL 03/01/2023 11:05 AM [facility] 56- AST 18 10 - 35 U/L 03/01/2023 11:05 AM [facility] 56 Alkaline Phosphatase 79 35 - 130 U/L 03/01/2023 11:05 AM [facility] 56- Bilirubin, Total 0.6 <=1.2 mg/dL 03/01/2023 11:05 AM EST [facility] 56-02 Calcium 9.3 8.4 - 10.2 mg/dL 03/01/2023 11:05 AM EST [facility] 56-02 Protein 7.2 6.0 - 8.3 g/dL 03/01/2023 11:05 AM EST [facility] 56-02 ALT 7(L) 10 - 35 U/L 03/01/2023 11:05 AM EST [facility] 56-02 Blood Venous blood specimen / Unknown Venipuncture / Unknown 03/01/2023 10:22 AM EST 03/01/2023 10:22 AM EST Aguilar Lizarraga MD LAB BLOOD ORDERABLES [facility] 56-[address] [place] [address] documented in this encounter Visit Diagnoses Diagnosis [...] and were consensually agreed upon. Care Teams Acoustical Tile Drill Press Operator Relationship Specialty Start Date End Date Nichole Lizarraga MD 200 [facility], [place] [phone] PCP - General Internal Medicine 03/10/12 documented as of this encounter
--- OUTSIDE RECORDS SUMMARY | 2023-06-30 22:59 | External Medical Summary | Summary of Care ---
Author Name Unknown Organization [facility] Address [address] [facility] [place] [address] Phone [phone] Care Team Providers Care Program Consultant Name Role Phone Nichole Lizarraga MD Primary Care Provider + Reason for Visit * Reason Comments Nurse Documentation Encounter Details Date Type Department Care Team (Late st Contact Info) Description 02/12/2023 10:30 AM EST Nurse Only Urology, [facility] [address] [place] [address] Ed[place]urse craig Urology [facility] [address] [facility] [address] Nurse Documentation Allergies Active Allergy Reactions Criticality Noted Date Comments Penicillins Edema airway,Rash High 03/10/2012 Last dose age 14 Pollen 01/17/2021 Ragweed 11/05/2022 documented as of this encounter (statuses as of 02/12/2023) Medications Medication Sig Dispensed Refills Start Date [...] as of this encounter (statuses as of 02/12/2023) Active Problems Problem Noted Date Diagnosed Date Postmenopausal atrophic vaginitis 09/04/2022 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 Chronic kidney disease, stage 3b 04/30/2022 Overview: Per CKD protocol Urgency of urination 01/17/2021 Malignant neoplasm of dome of urinary bladder Hydronephrosis, left 11/23/2020 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 Other neutropenia 11/14/2018 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 Chronic neutropenia 01/06/2018 documented as of this encounter (statuses as of 02/12/2023) Resolved Problems Problem Noted Date Diagnosed Date Resolved Date Chronic kidney disease, stage 3a 05/29/2021 05/02/2022 Overview: Per CKD protocol Fever 09/13/2015 10/21/2017 Kidney stone on left side Inguinal hernia 10/21/2017 Overview: Surgical repair Neutropenia 10/21/2017 documented as of this encounter (statuses as of 02/12/2023) Immunizations Name Administration Dates Next Due COVID-19 mRNA, LNP-s, No Pre serve, 2-Dose Series ([email or web address]) 01/05/2021,05/07/2020,04/16/2020 COVID-19, LNP-s, No Preserve , Jasbir-sucrose, Ages 12+ ([email or web address]) 09/06/2021 Covid-19, Mrna, Lnp-s, Pf, B ivalent, [...] as of this encounter Nursing Notes * Hazel Mcclain LPN - 02/12/2023 10:55 AM EST Patient's bladder was instilled 50 cc of sterile water. Catheter balloon then deflated and catheterremoved. Patient proceeded to void, spontaneously for approximately 50 cc of clear urine. Patient tolerated procedure well. Dr Royal made aware. documented in this encounter Plan of Treatment Upcoming Encounters Date Type Department Care Team (Late st Contact Info) Description 02/26/2023 11:45 AM EST Office Visit Urology, [facility] 132 [place] [address] Chris Royal MD 27 [facility] [address] [place] [address] 03/05/2023 11:15 AM EST Office Visit Urology, [place] [address] [place] [address] Saul Vargas MD [address] [place] [address] 03/20/2023 8:15 AM EST Office Visit Hematology/Oncology [facility] [place] [address] Aguilar Lizarraga MD [address] [place] [address] 06/24/2023 10:40 AM EDT Office Visit Nephrology, [facility] 200 [place] [address] Demetrius Sherman MD 200 [place] [address] 07/25/2023 11:15 AM EDT Office Visit Hematology/Oncology [facility] 200 [facility] [place], [place] [address] Aguilar Lizarraga MD 200 [facility] [place], [place] [address] 11/12/2023 9:20 AM EDT Office Visit General Internal Medicine [facility] 200 [facility] [place], [place] [address] Nichole Lizarraga MD 200 [place] [address] Health Maintenance Due Date Last Done Comments Zoster Vaccines (1 of 2) 01/23/1971 Colonoscopy 01/23/1997 Fecal Occult Blood Test 01/23/1997 Sigmoidoscopy 01/23/1997 DTaP,Tdap,and Td Vaccines (2 - Td or Tdap) 09/02/2022 09/02/2012 Albumin/Creatinine Ratio 03/13/2023 03/13/2022, 10/20 CKD PHOS USE SMARTSET 84487 03/13/2023 03/13/2022, 0 11/09/2021 Cologuard 06/09/2023 06/08/2020, 10/25/2016 Colorectal Cancer Screening 06/09/2023 GFR 07/30/2023 01/28/2023, 12/20, 08/23/2022, Additional history exists Mammogram 10/12/2023 10/11/2022, 05/0 04/2021, 01/18/2020, Additional history exists Depression Screening 11/07/2023 11/06/2022 CKD HGB USE SMARTSET 68143 01/29/202401/28, 01/28/2023, 12/13/2022, Additional history exists DXA Scan 10/02/2024 10/02/2022, [...] and were consensually agreed upon. Care Teams Program Consultant Relationship Specialty Start Date End Date Nichole Lizarraga MD [address] [place] [address], [place] [address] PCP - General Internal Medicine 03/10/12 documented as of this encounter
--- OUTSIDE RECORDS SUMMARY | 2023-06-30 22:59 | External Medical Summary | Summary of Care ---
Author Name Unknown Organization [facility] Address [address] [place] [place] [address] Phone [phone] Care Team Providers Care Construction Sales Manager Name Role Phone Nichole Lizarraga MD Primary Care Provider + Reason for Referral * Evaluate & Treat - Unlimited Visits (Within 10 days (routine)) - Pending Review Specialty Diagnoses / Procedures Referred By Yessenia avendaño Referred To Contact Urology Diagnoses 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) Chris Royal MD [address] [place] [address] Referral ID Status Reason Start Date Expiration Date Visits Requested Visits Authorized [id number] Pending Review Specialty Services Required 3 999 [...] (Late st Contact Info) Description 02/07/2023 Telephone [facility] Urology [address] [place] [address] [place] [address] Chris Royal MD [address] [place] [address] Allergies Active [...] mRNA, LNP-s, No Pre serve, 2-Dose Series ([employer]) 01/05/2021,05/07/2020,04/16/2020 COVID-19, LNP-s, No Preserve , Jasbir-sucrose, [...] should a massage be sent directly to [facility] office. If appt is ok, [...] 02/26/2023 11:45 AM EST Office Visit Urology, [facility] 132 [place] [address] Chris Royal MD [address] [facility] [address] [place] [address] 03/05/2023 11:15 AM EST Office Visit Urology, [place] [address] [place] [address] Saul Vargas MD [address] [place], [place] [id number] 03/20/2023 8:15 AM EST Office Visit Hematology/Oncology [facility] 200 [facility] [place] [address] Aguilar Lizarraga MD 200 [facility] [place] [address] 06/24/2023 10:40 AM EDT Office Visit Nephrology, [facility] 200 [facility] [place] [address] Demetrius Sherman MD 200 [facility] [place] [address] 07/25/2023 11:15 AM EDT Office Visit Hematology/Oncology [facility] 200 [facility] [place] [address] Aguilar Lizarraga MD 200 [facility] [place] [address] 11/12/2023 9:20 AM EDT Office Visit General Internal Medicine [facility] 200 [facility] [place] [address] Nichole Lizarraga MD 200 [facility] [place] [address] Scheduled Referrals Name Type Priority Associated Diagnoses [...] 03/13/2023 03/13/2022, 10/20 CKD PHOS USE SMARTSET 87881 03/13/2023 03/13/2022, 0 11/09/2021 Cologuard 06/09/2023 06/08/2020, 10/25/2016 Colorectal Cancer Screening 06/09/2023 GFR 07/30/2023 01/28/2023, 12/20, 08/23/2022, Additional history exists Mammogram 10/12/2023 10/11/2022, 05/0 04/2021, 01/18/2020, Additional history exists Depression Screening 11/07/2023 11/06/2022 CKD HGB USE SMARTSET 01208 01/29/202401/28, 01/28/2023, 12/13/2022, Additional history exists DXA [...] and were consensually agreed upon. Care Teams Construction Sales Manager Relationship Specialty Start Date End Date Nichole Lizarraga MD 200 [facility] [place] [address] PCP - General Internal Medicine 03/10/12 documented as of this encounter
--- OUTSIDE RECORDS SUMMARY | 2023-06-30 22:59 | External Medical Summary | Summary of Care ---
Author Name Unknown Organization [facility] Address [address] [place] [place] [place] [address] Phone [phone] Care Team Providers Care Lead Vulcanizing Operator Name Role Phone Nichole Lizarraga MD Primary Care Provider + Reason for Referral * Evaluate & Treat - Unlimited Visits (Within 10 days (routine)) - Pending Review Specialty Diagnoses / Procedures Referred By Yessenia avendaño Referred To Contact Urology Diagnoses 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) Chris Royal MD [address] [place] [address] Referral ID Status Reason Start Date Expiration Date Visits Requested Visits Authorized [id number] Pending Review Specialty Services Required 3 999 [...] (Late st Contact Info) Description 02/07/2023 Telephone [facility] Urology [address] [place] [address] [place] [address] Chris Royal MD [address] [place] [address] Allergies Active Allergy Reactions Criticality Noted Date Comments Penicillins Edema airway,Rash High 03/10/2012 Last dose age 14 Pollen 01/17/2021 Ragweed 11/05/2022 documented as of this encounter (statuses as of 02/08/2023) Medications Medication Sig Dispensed Refills Start Date [...] as of this encounter (statuses as of 02/08/2023) Active Problems Problem Noted Date Diagnosed Date Postmenopausal atrophic vaginitis 09/04/2022 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 Chronic kidney disease, stage 3b 04/30/2022 Overview: Per CKD protocol Urgency of urination 01/17/2021 Malignant neoplasm of dome of urinary bladder Hydronephrosis, left 11/23/2020 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 Other neutropenia 11/14/2018 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 Chronic neutropenia 01/06/2018 documented as of this encounter (statuses as of 02/08/2023) Resolved Problems Problem Noted Date Diagnosed Date Resolved Date Chronic kidney disease, stage 3a 05/29/2021 05/02/2022 Overview: Per CKD protocol Fever 09/13/2015 10/21/2017 Kidney stone on left side Inguinal hernia 10/21/2017 Overview: Surgical repair Neutropenia 10/21/2017 documented as of this encounter (statuses as of 02/08/2023) Immunizations Name Administration Dates Next Due COVID-19 mRNA, LNP-s, No Pre serve, 2-Dose Series ([employer]) 01/05/2021,05/07/2020,04/16/2020 COVID-19, LNP-s, No Preserve , Jasbir-sucrose, [...] should a massage be sent directly to [facility] office. If appt is ok, [...] 02/12/2023 10:30 AM EST Nurse Only Urology, [facility] 132 [place] [address] [facility] Nurse Urology [facility] 132 [facility] [place] [address] 02/26/2023 11:45 AM EST Office Visit Urology, [facility] 132 [facility] [place] [address] Chris Royal MD [address] [place] [address] 03/20/2023 8:15 AM EST Office Visit Hematology/Oncology [facility] [address] [facility] [address] [place] [address] Aguilar Lizarraga MD [address] [place] [address] 06/24/2023 10:40 AM EDT Office Visit Nephrology, [facility] [place] [address] Demetrius Sherman MD 200 [facility] [place] [address] 07/25/2023 11:15 AM EDT Office Visit Hematology/Oncology [facility] [place] 200 [facility] [place] [address] Aguilar Lizarraga MD 200 [facility] [place] [address] 11/12/2023 9:20 AM EDT Office Visit General Internal Medicine [facility] [place] [facility] [place] [address] Nichole Lizarraga MD [address] [place] [address] [place] [address] Scheduled Referrals Name Type Priority Associated Diagnoses [...] 03/13/2023 03/13/2022, 10/20 CKD PHOS USE SMARTSET 90686 03/13/2023 03/13/2022, 0 11/09/2021 Cologuard 06/09/2023 06/08/2020, 10/25/2016 Colorectal Cancer Screening 06/09/2023 GFR 07/30/2023 01/28/2023, 12/20, 08/23/2022, Additional history exists Mammogram 10/12/2023 10/11/2022, 05/0 04/2021, 01/18/2020, Additional history exists Depression Screening 11/07/2023 11/06/2022 CKD HGB USE SMARTSET 89291 01/29/202401/28, 01/28/2023, 12/13/2022, Additional history exists DXA [...] and were consensually agreed upon. Care Teams Lead Vulcanizing Operator Relationship Specialty Start Date End Date Nichole Lizarraga MD 200 [place] [address] PCP - General Internal Medicine 03/10/12 documented as of this encounter
--- OUTSIDE RECORDS SUMMARY | 2023-06-30 22:59 | External Medical Summary | Summary of Care ---
Author Name Unknown Organization [facility] Address [address] [facility] [place] [address] Phone [phone] Care Team Providers Care Strip Cutting Machine Operator Name Role Phone Nichole Lizarraga MD Primary Care Provider + Reason for Referral * Precert (Within 10 days (routine)) - Pending Review Specialty Diagnoses / Procedures Referred By Yessenia avendaño Referred To Contact Radiology Diagnoses 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) Procedures CT CHEST WO CONTRAST Chris Royal MD [address] [place] [address] Referral ID Status Reason Start Date Expiration Date V isits Requested Visits Authorized [id number] Pending Review 02/26/2023 999 999 Reason for Visit * Reason Comments Post-Op Encounter Details Date Type Department Care Team (Late st Contact Info) Description 02/26/2023 11:45 AM EST Office Visit Urology, [facility] 132 [facility] [place] [address] Chris Royal MD [address] [place] [address] 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)*; Abnormal cystoscopy; Hydronephrosis, left; Ureteral tumor Allergies Active Allergy Reactions Criticality Noted Date [...] mRNA, LNP-s, No Pre serve, 2-Dose Series ([employer]) 01/05/2021,05/07/2020,04/16/2020 COVID-19, LNP-s, No Preserve , Jasbir-sucrose, [...] as of this encounter Progress Notes * Chris Royal MD - 02/26/2023 12:03 PM EST [id number] PCP: NICHOLE LIZARRAGA[address] [place] [address] [phone] Linsey Estrella is a 73 year old female, who presents for postop check after TURBT. 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 Pathology has been reviewed with patient who has an upcoming appointment in [place] to discuss possible further therapies. Copy of pathology and NCCNguidelines reviewed with patient. Urinary Incontinence: Patient is being seen for urinary incontinence. Problem has been present for years. Severity is mild. Problem is about the same. Some dry mouth with solifenacin, less urgency, persistent frequency. Urinary incontinence is urge incontinence. They are using 0-1 pads a day for safety. They have usedsolifenacin 10 mg for incontinence. Bladder cancer: Found on biopsy due to abnormal cystoscopy December 2020 after diagnosis of ureteral tumor. Urothelial CIS noted in 3 of 4 biopsied areas in association with inflammation in December 2020. BCG x 6 weeks early 2021. Maintenance BCG x 1 year. Bladder biopsy after BCG May 2021 - no cancer, + inflammation. TURBT Jan 2023: A. Urinary bladder, anterior bladder tumor, transurethral resection: High grade invasive urothelial carcinoma with sarcomatoid features and focal squamous differentiation. Muscularis propria present and involved. Lymphovascular invasion identified. Left upper tract urothelial carcinoma: Presented to Urology Nov 2020. Stella PRASAD Jan 2021. High grade pT2 N0 R0 urothelial CA. CT scan Dec 2022: IMPRESSION 1. Increase in size of the lesion/process [...] no obvious enhancing lesion. No ureteral obstruction. Current Outpatient Medications Medication Sig Dispense Refill [...] Rash Last dose age 14 Pollen Ragweed Social History: Social History Tobacco Use Smoking status: Never Smokeless tobacco: Never Substance Use Topics Alcohol use: Yes Alcohol/week: 4.2 standard drinks of alcohol Types: 5 5 oz of wine per week Comment: occ Vaping/E-Cigarette Use Vaping/E-Cigarette Use Never User Vaping/E-Cigarette Substances Vaping/E-Cigarette Devices Family History Problem Relation Age of Onset Heart Disorder Mother Dyslipidemia Hypertension Mother Liver cancer Father Pancreatic cancer Father Diabetes Grandmother (Maternal) Stroke Grandmother (Maternal) Heart attack Grandfather (Maternal) Stroke Grandmother (Paternal) Cancer Grandfather (Paternal) 90 Unknown Diabetes Aunt (Unspecified) Diabetes Uncle (Unspecified) Breast Cancer No significant family history Past Surgical History: Procedure Laterality Date CYSTOSCOPY/TREAT MINOR LESION(S) N/A 01/09/2021 CYSTOURETHROSCOPY WITH FULGURATION MINOR BLADDER TUMOR performed by Chris Royal MD at OR [facility] CYSTOSCOPY/TREAT MINOR LESION(S) N/A 06/05/2021 CYSTOURETHROSCOPY WITH FULGURATION MINOR BLADDER TUMOR performed by Chris Royal MD at [facility] CYSTOSCOPY/TREAT SML BLADDER TUMOR N/A 02/04/2023 CYSTOURETHROSCOPY WITH FULGURATION SMALL BLADDER TUMOR [facility] SUR[facility]ERY PROCEDURE NEC INCISION OF [place], PLANNED Left 02/04/2017 TRACHEOSTOMY PLANNED performed by Nick Singh DO at [place] [facility] INFORMATION 02/04/2017 never had a trach INFORMATION 1989 kidney stone removal LAPARO REMOVE K/URETER Left 02/01/2021 LAPAROSCOPIC NEPHRECTOMY TOTAL URETERECTOMY performed by Chris Royal MD at OR [facility] LARYNGOSCOPY, VOCAL CORD EXCISION/STRIPPING Left 02/04/2017 LARYNGOSCOPY DIRECT STRIPPING VOCAL CORD WITH MICROSCOPE performed by Nick Singh DO at [place] [facility] REPAIR INITIAL INGUINAL HERNIA REDUCIBLE AGE 5 OR MORE 02/18/1999 Past Medical History: Diagnosis Date Inguinal hernia [...] Postmenopausal atrophic vaginitis N95.2 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 Constitutional: (-) fever and (-) chills Eyes: (+) corrective lenses ENT: (-) stridor Female : (+) see HPI Neurology: (-) negative: no focal neurologic defect Psychiatry: (-) negative: no depression or anxiety Physical Exam Nursing note reviewed. Constitutional: General: She is not in acute distress. Appearance: Normal appearance. She is not ill-appearing or toxic-appearing. HENT: Head: Normocephalic and atraumatic. Right Ear: External ear normal. Left Ear: External ear normal. Nose: Nose normal. Mouth/Throat: Mouth: Mucous membranes are moist. Cardiovascular: Pulses: Normal pulses. Pulmonary: Effort: Pulmonary effort is normal. Abdominal: General: There is no distension. Palpations: Abdomen is soft. Musculoskeletal: General: No deformity or signs of injury. Cervical back: Normal range of motion and neck supple. Skin: General: Skin is warm. Coloration: Skin is not pale. Neurological: General: No focal deficit present. Mental Status: She is alert and oriented to person, place, and time. Psychiatric: Mood and Affect: Mood normal. Behavior: Behavior normal. Impression/Plan: 73-year-old female with atypical bladder tumor of dome, muscle invasive urothelialmalignancy with sarcomatoid differentiation. Findings reviewed with patient. Upcoming appointment with Dr. Vargas in [place] and Dr. Lizarraga ofMedical Oncology are noted. Possible therapies are reviewed. Seen the patient's tumor location a possibility of partial cystectomy is noted, although with her baseline urinary frequency morbidity maybe challenging. Will defer further discussion to Dr. Vargas at the time of upcoming visit. Will restage with CT of the chest in the interim. NCCN guidelines reviewed, patient referred to information sources online which may be helpful. Will tentatively schedule for local f/u in 3 months, can be moved if it interferes with ongoing care. Questions answered. Patient vocalizes good understanding ofthe treatment plan. Chris Royal MD 12:03 PM 02/26/2023 documented in this encounter Nursing Notes * Yeimi Valentin LPN - 02/26/2023 11:47 AM EST Postop fulguration 02/04 Patient states she is only getting up 1 time at night and states that is major improvement. documented in this encounter Plan of Treatment Upcoming Encounters Date Type Department Care Team (Late st Contact Info) Description 02/26/2023 1:30 PM EST Imaging Radiology [address] 132 [facility] [place] [address] 03/05/2023 11:15 AM EST Office Visit Urology, [place] [address] [place] [place] [address] Saul Vargas MD 100 [address] [facility] [place] [address] 03/20/2023 8:15 AM EST Office Visit Hematology/Oncology [facility] 200 [facility] [place] [address] Flor Lizarraga MD 200 [facility] [place] [address] 06/10/2023 2:30 PM EDT Office Visit Urology, [facility] [address] [facility] [place] [address] Chris Royal MD [address] [place] [address] 06/24/2023 10:40 AM EDT Office Visit Nephrology, [facility] 200 [facility] [place] [address] Demetrius Sherman MD 200 [place] [address] 07/25/2023 11:15 AM EDT Office Visit Hematology/Oncology [facility] 200 [facility] [place] [address] Flor Lizarraga MD 200 [place] [address] 11/12/2023 9:20 AM EDT Office Visit General Internal Medicine [facility] 200 [facility] [place], [place] [address] Nichole Lizarraga MD 200 [facility] [place] [address] Scheduled Orders Name Type Priority Associated Diagnoses Orde r Schedule CT CHEST WO CONTRAST Medical Imaging Routine 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) Expected: 02/26/2023, Expires: 03/29/2024 Health Maintenance Due Date Last Done Comments Zoster Vaccines (1 of 2) 01/23/1971 Colonoscopy 01/23/1997 Fecal Occult Blood Test 01/23/1997 Sigmoidoscopy 01/23/1997 DTaP,Tdap,and Td Vaccines (2 - Td or Tdap) 09/02/2022 09/02/2012 Albumin/Creatinine Ratio 03/13/2023 03/13/2022, 09/2 03/2021 CKD PHOS USE SMARTSET [id number] 03/13/2023 03/13/2022, 0 11/09/2021 Cologuard 06/09/2023 06/08/2020, 10/25/2016 Colorectal Cancer Screening 06/09/2023 GFR 07/30/2023 01/28/2023, 12/20, 08/23/2022, Additional history exists Mammogram 10/12/2023 10/11/2022, 05/0 04/2021, 01/18/2020, Additional history exists Depression Screening 11/07/2023 11/06/2022 CKD HGB USE SMARTSET 86359 01/29/202402/26, 02/26/2023, 01/28/2023, Additional history exists DXA Scan [...] Malignant neoplasm of dome of urinary bladder Abnormal cystoscopy Other nonspecific abnormal finding Hydronephrosis, left Hydronephrosis Ureteral tumor Neoplasm of unspecified nature of other genitourinary organs documented in this encounter Advance Directives Latest [...] and were consensually agreed upon. Care Teams Strip Cutting Machine Operator Relationship Specialty Start Date End Date Nichole Lizarraga MD 200 [place] [address] PCP - General Internal Medicine 03/10/12 documented as of this encounter
--- OUTSIDE RECORDS SUMMARY | 2023-06-30 22:59 | External Medical Summary ---
Author Name Unknown Address Unknown Organization [id number] [place] [id number] Laboratory Report Ordering Provider Test Date Status KEN RAY 02/26/2023 13:01:27 Final Observation Date Value Abnormality Reference (Units ) Status WBC, Total 02/26/2023 13:01:27 5.82 4.00-10.8 0 (K/uL) Final RBC 02/26/2023 13:01:27 4.62 3.85-5.15 (M/uL) Final Hemoglobin 02/26/2023 13:01:27 13.7 12.0-15.3 (g/dL) Final HCT 02/26/2023 13:01:27 42.1 36.0-45.2 (%) Final MCV 02/26/2023 13:01:27 91.1 81.5-97.5 (fL) Final MCH 02/26/2023 13:01:27 29.7 27.0-34.0 (pg) Final MCHC 02/26/2023 13:01:27 32.5 32.0-36.0 (g/dL) Final RDW 02/26/2023 13:01:27 15.4 11.5-15.5 (%) Final Platelets 02/26/2023 13:01:27 165 140-400 (K /uL) Final MPV 02/26/2023 13:01:27 11.6 6.6-11.1 ( fL) Final Performing Location [facility] [address] [place] [address]
--- OUTSIDE RECORDS SUMMARY | 2023-06-30 22:59 | External Medical Summary | Summary of Care ---
Author Name Unknown Organization [facility] Address [address] [facility] [place] [address] Phone [phone] Care Team Providers Care Document Preparation Specialist Name Role Phone Nichole Lizarraga MD Primary Care Provider + Encounter Details Date Type Department Care Team ([facility] st Contact Info) Description 02/26/2023 Specialty Pharmacy [facility], [address] [address] Medication, [place] Specialty Refill, [address] [address] Allergies Active Allergy Reactions Criticality Noted Date [...] mRNA, LNP-s, No Pre serve, 2-Dose Series ([employer]) 01/05/2021,05/07/2020,04/16/2020 COVID-19, LNP-s, No Preserve , Jasbir-sucrose, Ages 12+ ([employer]alo) 09/06/2021 Covid-19, Mrna, Lnp-s, Pf, B ivalent, 30 Mcg, IM, 12 yrs and above ([employer]alo) 01/31/2022 PPD 02/19/2017 Pneumococcal Conjugate Vacc, 13 [...] as of this encounter Progress Notes * Kyra Diaz CPhT - 02/26/2023 9:22 AM EST Prescribed medication: Medication: [id number] Shipment date: 02/28 pending patrick Delivery method: Specialty Mail Location Medication Delivered too? Prescription Address: [address] [place] [phone] Kyra Diaz CPhT [facility] 02/26/2023,9:22 AM documented in this encounter Plan of Treatment Upcoming Encounters Date Type Department Care Team (Late st Contact Info) Description 02/26/2023 11:45 AM EST Office Visit Urology, [facility] [address] [facility] [place] [address] Chris Royal MD 27 [facility] [address] [place] [address] 03/05/2023 11:15 AM EST Office Visit Urology, [place] [address] [place] [address] Saul Vargas MD [address] [place] [address] 03/20/2023 8:15 AM EST Office Visit Hematology/Oncology [facility] [address] [place] [address] Aguilar Lizarraga MD [address] [place] [address] 06/24/2023 10:40 AM EDT Office Visit Nephrology, [facility] 200 [facility] [place] [address] Demetrius Sherman MD [address] [facility] [place] [address] 07/25/2023 11:15 AM EDT Office Visit Hematology/Oncology [facility] [address] [facility] [place], [place] [address] Aguilar Lizarraga MD [address] [facility] [place], [place] [address] 11/12/2023 9:20 AM EDT Office Visit General Internal Medicine [facility] [address] [facility] [place], [place] [address] Nichole Lizarraga MD 200 [facility] [place] [address] Health Maintenance Due Date Last Done Comments Zoster Vaccines (1 of 2) 01/23/1971 Colonoscopy 01/23/1997 Fecal Occult Blood Test 01/23/1997 Sigmoidoscopy 01/23/1997 DTaP,Tdap,and Td Vaccines (2 - Td or Tdap) 09/02/2022 09/02/2012 Albumin/Creatinine Ratio 03/13/2023 03/13/2022, 10/20 CKD PHOS USE SMARTSET 27828 03/13/2023 03/13/2022, 0 11/09/2021 Cologuard 06/09/2023 06/08/2020, 10/25/2016 Colorectal Cancer Screening 06/09/2023 GFR 07/30/2023 01/28/2023, 12/20, 08/23/2022, Additional history exists Mammogram 10/12/2023 10/11/2022, 05/0 04/2021, 01/18/2020, Additional history exists Depression Screening 11/07/2023 11/06/2022 CKD HGB USE SMARTSET 02906 01/29/202401/28, 01/28/2023, 12/13/2022, Additional history exists DXA [...] and were consensually agreed upon. Care Teams Document Preparation Specialist Relationship Specialty Start Date End Date Nichole Lizarraga MD 200 [facility] [place] [address] PCP - General Internal Medicine 03/10/12 documented as of this encounter
--- OUTSIDE RECORDS SUMMARY | 2023-06-30 22:59 | External Medical Summary | Summary of Care ---
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 Role Phone Nichole Lizarraga MD Primary Care Provider + Reason for Visit * Reason Comments Outpatient Testing Encounter Details Date Type Department Care Team (Late st Contact Info) Description 02/26/2023 1:00 PM EST [facility] [phone] [facility] 132 [place] [address] Large granular lymphocytic leukemia (HCC) Allergies Active [...] mRNA, LNP-s, No Pre serve, 2-Dose Series ([employer]) 01/05/2021,05/07/2020,04/16/2020 COVID-19, LNP-s, No Preserve , Jasbir-sucrose, Ages 12+ ([employer]) 09/06/2021 Covid-19, Mrna, Lnp-s, Pf, B ivalent, [...] Description 02/26/2023 1:30 PM EST Imaging Radiology [address] [place] [address] 03/05/2023 11:15 AM EST Office Visit Urology, [place] [address] [place] [address] Saul Vargas MD [address] [place] [address] 03/20/2023 8:15 AM EST Office Visit Hematology/Oncology [facility] [address] [place] [address] Aguilar Lizarraga MD [address] [place] [place] [address] 06/10/2023 2:30 PM EDT Office Visit Urology, [facility] 132 [place] [address] Chris Royal MD 27 [facility] [address] [place] [address] 06/24/2023 10:40 AM EDT Office Visit Nephrology, [facility] [address] [place] [address] Demetrius Sherman MD [address] [place] [address] 07/25/2023 11:15 AM EDT Office Visit Hematology/Oncology [facility] 200 [facility] [place], [place] [address] Aguilar Lizarraga MD 200 [facility] [place], [place] [address] 11/12/2023 9:20 AM EDT Office Visit General Internal Medicine [facility] 200 [facility] [place], [place] [address] Nichole Lizarraga MD 200 [facility] [place], [place] [address] Health Maintenance Due Date Last Done Comments Zoster Vaccines (1 of 2) 01/23/1971 Colonoscopy 01/23/1997 Fecal Occult Blood Test 01/23/1997 Sigmoidoscopy 01/23/1997 DTaP,Tdap,and Td Vaccines (2 - Td or Tdap) 09/02/2022 09/02/2012 Albumin/Creatinine Ratio 03/13/2023 03/13/2022, 10/20 CKD PHOS USE SMARTSET 54665 03/13/2023 03/13/2022, 0 11/09/2021 Cologuard 06/09/2023 06/08/2020, 10/25/2016 Colorectal Cancer Screening 06/09/2023 GFR 07/30/2023 01/28/2023, 12/20, 08/23/2022, Additional history exists Mammogram 10/12/2023 10/11/2022, 05/0 04/2021, 01/18/2020, Additional history exists Depression Screening 11/07/2023 11/06/2022 CKD HGB USE SMARTSET 16843 01/29/202402/26, 02/26/2023, 01/28/2023, Additional history exists DXA [...] Date/Time Associated Diagnosis Comments DIFFERENTIAL, AUTOMATED STAT 02/26/2023 1:01 PM EST Large granular lymphocytic leukemia (HCC) CBC STAT 02/26/2023 1:01 PM EST Large granular lymphocytic leukemia (HCC) CBC STAT 02/26/2023 1:01 PM EST Large granular lymphocytic leukemia (HCC) documented in this encounter Results * (ABNORMAL) DIFFERENTIAL, AUTOMATED (02/26/2023 1:01 PM EST) WBC 5.82 4.00 - 10.80 K/uL 02/26/2023 1:05 PM EST [facility] [place] [facility] Neutrophils % 25.6(L) 40.0 - 75.0 % 02/26/2023 1:05 PM EST [facility] [place] [facility] Lymphocytes % 52.9(H) 18.0 - 42.0 % 02/26/2023 1:05 PM EST [facility] [place] [facility] Monocytes % 17.4(H) 1.0 - 11.0 % 02/26/2023 1:05 PM EST [facility] [place] [facility] Eosinophils % 2.6 0.0 - 6.0 % 02/26/2023 1:05 PM EST [facility] [place] [facility] Basophils % 1.5 0.0 - 2.0 % 02/26/2023 1:05 PM EST [facility] [place] [facility] Absolute Neutrophils 1.49(L) 1.80 - 7.70 K/uL 02/26/2023 1:05 PM EST [facility] [place] [facility] Absolute Lymphocytes 3.08 1.00 - 4.80 K/ul 02/26/2023 1:05 PM EST [facility] [place] [facility] Absolute Monocytes 1.01 0.00 - 1.10 K/uL 02/26/2023 1:05 PM EST [facility] Absolute Eosinophils 0.15 0.00 - 0.70 K/uL 02/26/2023 1:05 PM EST [facility] [place] [facility] Absolute Basophils 0.09 0.00 - 0.20 K/uL 02/26/2023 1:05 PM EST [facility] [place] [facility] Blood Venous blood specimen / Unknown Venipuncture / Unknown 02/26/2023 1:01 PM EST 02/26/2023 1:01 PM EST Aguilar Lizarraga MD LAB BLOOD ORDERABLES [facility] [place] [facility] [address] [place] [address] * CBC (02/26/2023 1:01 PM EST) WBC 5.82 4.00 - 10.80 K/uL 02/26/2023 1:05 PM EST [facility] [place] [facility] RBC 4.62 3.85 - 5.15 M/uL 02/26/2023 1:05 PM EST [facility] [place] [facility] HGB 13.7 12.0 - 15.3 g/dL 02/26/2023 1:05 PM EST [facility] [place] [facility] HCT 42.1 36.0 - 45.2 % 02/26/2023 1:05 PM EST [facility] [place] [facility] MCV 91.1 81.5 - 97.5 fL 02/26/2023 1:05 PM EST [facility] [place] [facility] MCH 29.7 27.0 - 34.0 pg 02/26/2023 1:05 PM EST [facility] [place] [facility] MCHC 32.5 32.0 - 36.0 g/dL 02/26/2023 1:05 PM EST [facility] [place] [facility] RDW 15.4 11.5 - 15.5 % 02/26/2023 1:05 PM EST [facility] [place] [facility] PLT 165 140 - 400 K/uL 02/26/2023 1:05 PM EST [facility] [place] [facility] MPV 11.6 6.6 - 11.1 fL 02/26/2023 1:05 PM EST [facility] [place] [facility] Blood Venous blood specimen / Unknown Venipuncture / Unknown 02/26/2023 1:01 PM EST 02/26/2023 1:01 PM EST Aguilar Lizarraga MD LAB BLOOD ORDERABLES [facility] [place] [facility] [place] [address] documented in this encounter Visit Diagnoses Diagnosis Large granular lymphocytic leukemia (HCC) Other lymphoid [...] and were consensually agreed upon. Care Teams [employer] Engine Mechanic Relationship Specialty Start Date End Date Nichole Lizarraga MD [address] [place] [address] [place] [address] PCP - General Internal Medicine 03/10/12 documented as of this encounter
--- OUTSIDE RECORDS SUMMARY | 2023-06-30 23:00 | External Medical Summary | Summary of Care ---
Author Name Unknown Organization [facility] Address [address] [facility] [place] [address] Phone [phone] Care Team Providers Care Blocklayer Name Role Phone Nichole Lizarraga MD Primary Care Provider + Reason for Visit * Auth/Cert Specialty Diagnoses / Procedures Referred By Yessenia avendaño Referred To Contact Diagnoses Abnormal cystoscopy Abnormal cystoscopy [R39.9] Procedures CYSTOSCOPY/TREAT SML BLADDER TUMOR CYSTOURETHROSCOPY WITH FULGURATION SMALL BLADDER TUMOR Referral ID Status Reason Start Date Expiration Date Visits Re quested Visits Authorized [id number] Encounter Details Date Type Department Care Team (Latest Contact Info) Description 02/04/2023 7:08 AM EST - 02/04/2023 10:55 AM EST Hospital Encounter OR [facility], Operating Room [facility] [address] [facility] [place] [address] Chris Royal MD [address] [facility] [address] [place] [address] Discharge Disposition: Home - Self Care Allergies Active Allergy Reactions Criticality Noted Date Comments Penicillins Edema airway,Rash High 03/10/2012 Last dose age 14 Pollen 01/17/2021 Ragweed 11/05/2022 documented as of this encounter (statuses as of 02/04/2023) Medications Medication Sig Dispensed Refills Start Date [...] before bedtime. 6 Tablet 0 02/04/2023 Active oxyCODONE-Acetami nophen 5-325 MG Oral Tablet (Percocet) Take 1 Tablet by mouth every 6 hours as needed for Pain, Severe. 14 Tablet 0 02/04/2023 Active Phenazopyridine HCl 200 MG Oral Tablet (Pyridium) Take 1 Tablet by mouth 3 times a day as needed for Other (bladder spasms). After meals. 15 Tablet 0 02/04/2023 Active Doxycycline Hyclate 100 MG Oral CapsuleIndication s:Tick bite, unspecified site, initial encounter One pill twice daily for 2 weeks. 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 Chronic neutropenia 01/06/2018 documented as of this encounter (statuses as of 02/04/2023) Resolved Problems Problem Noted Date Diagnosed Date Resolved Date Chronic kidney disease, stage 3a 05/29/2021 05/02/2022 Overview: Per CKD protocol Fever 09/13/2015 10/21/2017 Kidney stone on left side Inguinal hernia 10/21/2017 Overview: Surgical repair Neutropenia 10/21/2017 documented as of this encounter (statuses as of 02/04/2023) Immunizations Name Administration Dates Next Due COVID-19 mRNA, LNP-s, No Pre serve, 2-Dose Series ([place]) 01/05/2021,05/07/2020,04/16/2020 COVID-19, LNP-s, No Preserve , Jasbir-sucrose, [...] Sign Reading Time Taken Comments Blood Pressure 126/69 02/04/2023 10:20 AM EST Pulse 68 02/04/2023 10:20 AM EST Temperature 36.2 C (97.2 F) 02/04/2023 9:50 AM ES T Respiratory Rate 17 02/04/2023 10:20 AM EST Oxygen Saturation 100% 02/04/2023 10:20 AM EST Inhaled Oxygen Concentration - - Weight 56.2 kg (124 lb) 02/04/2023 7:51 AM EST Height 161.9 cm (5' 3.74") 02/04/2023 7:51 AM ES T Body Mass Index 21.46 02/04/2023 7:51 AM EST documented in this encounter Discharge Instructions * Discharge Instr - AVS* Chris Royal MD - 02/04/2023 9:19 AM EST Catheter to gravity drainage as instructed. Blood in and around the catheter is expected including the passage of small clots. A burning sensation is not unusual. Follow-up in the office as planned for removal of the catheter. Complete antibiotics as prescribed. Use pain medication as needed. No heavy lifting for 2-3 weeks to avoid bleeding. Contact our office or proceed to ER with any fevers, chills, nausea, vomiting or other worrisome symptoms. Proceed to ER if catheter stops draining or blood clots block catheter. No driving within 24 hours of anesthesia or while taking pain medication. OK to shower with catheter in place starting tomorrow, no tub baths. documented in this encounter Progress Notes * Chris Royal MD - 02/04/2023 9:19 AM EST [address] [address] OUTPATIENT SURGERY DISCHARGE SUMMARY NOTE Name: Linsey Estrella Location: OR [facility] Date: 02/04/2023 Time: 9:20 AM Surgery Date: 02/04/2023 Procedure: Procedure(s): CYSTOURETHROSCOPY WITH FULGURATION SMALL BLADDER TUMOR N/A Surgeon: Surgeon(s): Chris Royal MD Discharge Diagnosis: Transurethral resection of 3 cm anterior bladder tumor. After examination of this patient, I have determined she is ready for discharge to home when the patient meets criteria. Discharge instructions were given to the patient. documented in this encounter H&P Notes * Chris Royal MD - 02/04/2023 8:21 AM EST HISTORY & PHYSICAL INTERVAL NOTE [address] [address] History and Physical Update: Name: Linsey Estrella Location: OR [facility]/[place] Date: 02/04/2023 Time: 8:21 AM DATE OF HISTORY AND PHYSICAL: January 21, 2023 BP: 113 mmHg/60 mmHg (02/04/23750) Pulse: 70 (02/04/23750) Temp: 35.94 C (02/04/23750) Resp: 16 (02/04/23750) SpO2: 100 % (02/04/23750) Does patient take a beta brady? No Did patient stop anticoagulants? None Heart Exam: regular rate and rhythm Lung Exam: clear to auscultation bilaterally Other Pertinent Physical Exam: Abdomen benign I have reviewed the H&P previously performed and examined the patient today. There are no new findings noted. * Chris Royal MD - 02/04/2023 7:38 AM EST GENERAL HISTORY & PHYSICAL EXAMINATION - Urology Service [facility] [address] [place] [address] Name: Linsey Estrella Location: OR [facility]/[place] Date: 02/04/2023 Time: 7:38 AM Date of H&P January 21, 2023. [id number] PCP: NICHOLE LIZARRAGA[address], [place] [address] Linsey Estrella is a 72 year old female, who presents for discussion of her CT imaging. Her past notes are reviewed, CT imaging is personally reviewed with patient. This shows an increase in sizeof her anterior bladder lesion, still atypical for urothelial CA. Patient's is present heretoday. Lesion is in the location that a urachal malignancy might be present. No papillary appearance at the time of cystoscopy. Urinary Incontinence: Patient is being seen for [...] May 2021 - no cancer, + inflammation. Bladder biopsy December 2022. Left upper tract urothelial carcinoma: Presented to [...] obvious enhancing lesion. No ureteral obstruction. Current Medications Current Outpatient Medications Medication Sig [...] 4 days a week 8 mL 5 Doxycycline Hyclate 100 MG Oral Capsule One pill twice daily for 2 weeks. 28 Capsule 0 No current facility-administered medications for this visit. Review of patient's allergies indicates: Allergen Reactions Penicillins Edema airway and Rash Last dose age 14 Pollen Ragweed Social History: Social History - Alcohol and Tobacco Use Social History Tobacco Use Smoking status: Never Smokeless tobacco: Never Substance Use Topics Alcohol use: Yes Alcohol/week: 4.2 standard drinks of alcohol Types: 5 5 oz of wine per week Comment: occ Vaping History Vaping/E-Cigarette Use Vaping/E-Cigarette Use Never User Vaping History Vaping/E-Cigarette Substances Vaping History Vaping/E-Cigarette Devices Family History Problem Relation Age of Onset Heart Disorder Mother Dyslipidemia Hypertension Mother Liver cancer Father Pancreatic cancer Father Diabetes Grandmother (Maternal) Stroke Grandmother (Maternal) Heart attack Grandfather (Maternal) Stroke Grandmother (Paternal) Cancer Grandfather (Paternal) 90 Unknown Diabetes Aunt (Unspecified) Diabetes Uncle (Unspecified) Breast Cancer No significant family history Past Surgical History Past Surgical History: Procedure Laterality Date CYSTOSCOPY/TREAT MINOR LESION(S) N/A 01/09/2021 CYSTOURETHROSCOPY WITH FULGURATION MINOR BLADDER TUMOR performed by Chris Royal MD at OR [facility] CYSTOSCOPY/TREAT MINOR LESION(S) N/A 06/05/2021 CYSTOURETHROSCOPY WITH FULGURATION MINOR BLADDER TUMOR performed by Chris Royal MD at OR [facility] DENTAL SURGERY PROCEDURE NEC INCISION OF WINDP[place], PLANNED Left 02/04/2017 TRACHEOSTOMY PLANNED performed by Nick Singh DO [place] [facility] [place] 02/04/2017 never had a trach INFORMATION 1989 kidney stone removal LAPARO REMOVE K/URETER Left 02/01/2021 LAPAROSCOPIC NEPHRECTOMY TOTAL URETERECTOMY performed by Chris Royal MD at [facility] LARYNGOSCOPY, VOCAL CORD EXCISION/STRIPPING Left 02/04/2017 LARYNGOSCOPY DIRECT STRIPPING VOCAL CORD WITH MICROSCOPE performed by Nick Singh DO [place] [facility] [place] INITIAL INGUINAL HERNIA REDUCIBLE AGE 5 OR MORE 02/18/1999 Past Medical History Past Medical History: Diagnosis [...] and (-) chills Eyes: (+) corrective lenses Female : (+) see HPI Neurology: (-) [...] pulses. Pulmonary: Effort: Pulmonary effort is normal. No respiratory distress. Abdominal: General: There is no distension. Palpations: Abdomen is soft. Musculoskeletal: General: No deformity or signs of injury. Cervical back: Normal range of motion and neck supple. Skin: General: Skin is warm. Coloration: Skin is not pale. Neurological: General: No focal deficit present. Mental Status: She is alert and oriented to person, place, and time. Motor: No weakness. Gait: Gait normal. Psychiatric: Mood and Affect: Mood normal. Behavior: Behavior normal. Impression/Plan: 72 yo female with an anterior bladder lesion, history of high- grade urothelial malignancy. Seen the appearance of cystoscopy and CT imaging we will simply proceed to the operating room for Transurethral resection of bladder tumor. Will hold on consideration of mitomycin seen the lack of apparent papillary abnormalities. Possible outcomes were reviewed including the possibility of a urachal malignancy versus recurrent urothelial malignancy. If the latter is the case, we may very well need to consider repeat BCG therapy. Expected convalescence is reviewed, would expect the placement ofFoley catheter for the postop healing. Informed consent obtained. Above content is personally reviewed. Patient vocalizes good understanding of the treatment plan. Chris Royal MD 12:20 PM 01/21/2023 1621 documented in this encounter Nursing Notes * Maricel Hadley RN - 02/04/2023 10:54 AM EST Vs stable. Reports pain at 2/10 on pain scale, tolerable. Denies nausea and tolerating PO intake. Dressing dry and intact. Verbalized understanding of all discharge directions. Patient stable for discharge to home. Ambulated to private auto with staff presence. * Maricel Hadley RN - 02/04/2023 9:50 AM EST Pt to pacu2 status. 2/10 burning with catheter site. Denies nausea. Catheter patent and draining. * Flower Harmon RN - 02/04/2023 9:44 AM EST Pt awake and alert, no c/o pain or nausea. Knox in place and drains clear yellow urine. * Flower Harmon RN - 02/04/2023 9:16 AM EST Pt received from OR, report received from MAINTENANCE SUPERVISOR 2ND SHIFT and VS reviewed. Pt arousable to name, no c/o pain or nausea. Knox in place, drains clear yellow urine. * Eleanor Campos RN - 02/04/2023 7:37 AM EST Surgical consent verified with patient. Patient agrees with listed procedure and verified signature. documented in this encounter OR Notes * OR Surgeon - Chris Royal MD - 02/04/2023 9:28 AM EST [facility] [address] [place] [address] OPERATIVE REPORT Name: Linsey Estrella Date: 02/04/2023 Time: 9:28 AM Location: [facility] Service: Urology. Date of Operation: 02/04/2023 Pre-op Diagnosis: 3 cm anterior bladder abnormality. Post-op Diagnosis: Transurethral resection of 3 cm anterior bladder tumor. Surgeon: Chris Royal MD Assistants: None. Anesthesia: General anesthesia with laryngeal mask. Operation: Transurethral resection of bladder tumor. Findings: Abnormal appearing tissue without franck papillary tumor, no evidence of bladder perforation. Specimen and Disposition: Anterior bladder tumor. Estimated Blood Loss: Less than 5 mL. Fluids: 900 mL of crystalloid. Urine Output: Not measured. Drains/Implants: 18 Chilean Knox catheter with 10 mL of sterile water in the balloon. Complications: None. Postoperative Condition: Stable. 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 scan demonstrates an abnormality in the anterior bladder wall corresponding with abnormal cystoscopic findings. Seen the patient's progress she is being brought to the operating room today for resection of the area in question. Risks and benefits reviewed. IV Ancef provided for antibiotic coverage, SCDs for DVT prophylaxis and IV Tylenol for additional perioperative analgesia. Informed consent reviewed in the chart preoperatively today. Please see H&P and outpatient notes for further d etails. Description of Operation: Patient was properly identified and brought into the operative suite after identification of appropriate consent in the chart. General anesthesia with laryngeal mask was initiated and patient was prepped and draped in the standard fashion for this procedure. interactive multimedia designer-out procedure was followed. Twenty-six Chilean rigid resectoscope sheath was introduced into the bladder using an obturator and then resectoscope was introduced. Bladder was surveyed in its entirety demonstrating normal ureteral orifice on the right-hand side and no other abnormalities save for the previously identified area at the dome of the bladder. Bipolar loop was used to resect the area in question which was able to be performed without any evidence of perforation. Tissue fragments were irrigated free and sent for pathologic analysis. Bipolar button was used to achieve hemostasis in the area and ablate surrounding, friable mucosa. No evidence of residual tissue samples were present in the bladder and no evidence of significant residual abnormal tissue in the anterior bladder wall. After this was complete bladder was drained and cystoscope was removed. Eighteen Chilean Knox catheter was introduced for bladder rest. 10 mL of sterile water were placed in the balloon catheter was placed to gravity drainage. Anesthesia was reversed and patient was transferred to the recovery room stable condition. Follow-up care: Patient be discharged home with Knox catheter in place. Outpatient appointment fortrial of void and pathology review is confirmed. We will try to leave the catheter in a little longer if it is tolerated, questionable seen the patient's history of significant detrusor spasticity. Pr escription provided for Bactrim, Percocet and Pyridium. Intraoperative findings reviewed with the patient's . Patient is instructed to contact our office should she note any fevers, chills, nausea, vomiting, catheter malfunction or other significant difficulties in the postoperative period. documented in this encounter Plan of Treatment Upcoming Encounters Date Type Department Care Team (Late st Contact Info) Description 02/07/2023 11:00 AM EST [facility] [address] [facility] [place] [address] [place] Nurse Urology [facility] [address] [place] [address] 02/26/2023 11:45 AM EST [facility] [address] [facility] [place] [address] Chris Royal MD [address] [facility] [address] [place] [address] 06/24/2023 10:40 AM EDT Office Visit Nephrology, [facility] [address] [facility] [place] [address] Demetrius Sherman MD [address] [facility] [place] [address] 07/25/2023 11:15 AM EDT Office Visit Hematology/Oncology [facility] [address] [facility] [place], [place] [address] Flor Lizarraga MD [address] [facility] [place], [place] [address] 11/12/2023 9:20 AM EDT Office Visit General Internal Medicine [facility] [address] [facility] [place], [place] [address] Nichole Lizarraga MD [address] [facility] [place] [address] Pending Results Name Type Priority Associated Diagnoses Date /Time SURGICAL PATHOLOGY Pathology Routine Abnormal cystoscopy 02/04/2023 8:54 AM EST Scheduled Orders Name Type Priority Associated Diagnoses Orde r Schedule SURGICAL PATHOLOGY Pathology Routine Abnormal cystoscopy Release Upon Ordering for 1 Occurrences starting 02/04/2023, 1 completed Scheduled Procedures Name Priority Associated Diagnoses Date/Ti ok CYSTOURETHROSCOPY WITH FULGURATION SMALL BLADDER TUMOR Abnormal cystoscopy 02/04/2023 8:20 AM EST Health Maintenance Due Date Last Done Comments Zoster Vaccines (1 of 2) 01/23/1971 Colonoscopy 01/23/1997 Fecal Occult Blood Test 01/23/1997 Sigmoidoscopy 01/23/1997 DTaP,Tdap,and Td Vaccines (2 - Td or Tdap) 09/02/2022 09/02/2012 Albumin/Creatinine Ratio 03/13/2023 03/13/2022, 10/20 CKD PHOS USE SMARTSET 17885 03/13/2023 03/13/2022, 0 11/09/2021 Cologuard 06/09/2023 06/08/2020, 10/25/2016 Colorectal Cancer Screening 06/09/2023 GFR 07/30/2023 01/28/2023, 12/20, 08/23/2022, Additional history exists Mammogram 10/12/2023 10/11/2022, 05/0 04/2021, 01/18/2020, Additional history exists Depression Screening 11/07/2023 11/06/2022 CKD HGB USE SMARTSET 10037 01/29/202401/28, 01/28/2023, 12/13/2022, Additional history exists DXA [...] as of this encounter Visit Diagnoses Diagnosis CIS (carcinoma in situ of bladder)- Primary Carcinoma in situ of bladder Abnormal cystoscopy Other nonspecific abnormal finding documented in this encounter Administered Medications Inactive Administered Medications - up to 3 most recent administrations Medication Order MAR Action Action Date Dose Rate Site Acetaminophen (Ofirmev) inj 1,000 mg 1,000 mg, Intravenous, PREOP, 1 dose, First dose on Sat02/04/23 at 0800, Administer over 15 Minutes, Administer undiluted over 15 minutes! NOTE: Maximum of 4000 mg per 24 hours of acetaminophen from all acetaminophen containing products., Pre-Op, Indication: Patient is strictly NPO New Bag 02/04/2023 8:17 AM EST 1,000 mg 400 mL/hr dexAMETHasone Sodium Phosphate (Decadron) 4 MG/ML inj 4 mg 4 mg, IV Push, PRN Nausea, Starting on Sat02/04/23 at 0920, Until Sat02/04/23 at 1455, For 1 dose, PROTECT FROM LIGHT, PACU fentaNYL (PF) inj 25 mcg 25 mcg, IV Push, PRN Pain, Severe, Starting on Sat02/04/23 at 0920, Until Sat02/04/23 at 1455, For 6 doses, When given IV Push its recommended that the dose be given over 3 to 5 minutes., PACU isolyte-S pH 7.4 infusion Intravenous, Plasma-LYTE 148, isolyte-S, and isolyte-S pH 7.4 are considered equivalent - including for MAR barcode scanning., CONTINUOUS, Starting on Sat02/04/23 at 0800, Until Sat02/04/23 at 1455, Pre-Op Continue from Pre-Op 02/04/2023 8:33 AM EST 100 mL/hr New Bag 02/04/2023 7:56 AM EST 1,000 mL 100 mL/hr ondansetron (Zofran) inj 4 mg 4 mg, IV Push, PRN Nausea, Starting on Sat02/04/23 at 0920, Until Sat02/04/23 at 1455, For 1 dose, PACU oxygen GAS Inhalation, OXYGEN, First dose on Sat02/04/23 at 1000, Until Discontinued, Device/Managed by: Low Flow Device, Goal SPO2 (%): 91-95, Starting Device: Simple Mask, Initial Flow Rate (LPM): 6, Lowest Support: Nasal Cannula: Flow 0-6 LPM. Titrate up/down by 1 LPM., Titration Interval: Q2 minutes and as needed., Notify Provider: For sudden DECREASE in resting SPO2 to less than 85% and when escalating delivery device., PACU I - Oxygen for saturation below 95% as indicated per anesthesia. PACU I - Discontinue oxygen when patient is responsive and oxygen saturation is maintained above 94% on room air or same as preanesthetic level. documented in this encounter Active and Recently Administered Medications Times are shown in EST. Scheduled Medication Order 02/02/2023 02/03/2023 02/04/2023 Acetaminophen (Ofirmev) inj 1,000 mg (COMPLETED) 1,000 mg, Intravenous, PREOP, 1 dose, First dose on Sat02/04/23 at 0800, Administer over 15 Minutes, Administer undiluted over 15 minutes! NOTE: Maximum of 4000 mg per 24 hours of acetaminophen from all acetaminophen containing products., Pre-Op, Indication: Patient is strictly NPO 0817 (New Bag - Prov ider: Eleanor Campos RN) ciprofloxacin (Cipro) in D5W ivpb 400 mg (COMPLETED) IV Piggyback, 400 mg, ONCE, 1 dose, On Sat02/04/23 at 0915, Administer over 60 Minutes, PROTECT FROM LIGHT 0841 (Given - Provid er: Luis Sotomayor CRNA) oxygen GAS Inhalation, OXYGEN, First dose on Sat02/04/23 at 1000, Until Discontinued, Device/Managed by: Low Flow Device, Goal SPO2 (%): 91-95, Starting Device: Simple Mask, Initial Flow Rate (LPM): 6, Lowest Support: Nasal Cannula: Flow 0-6 LPM. Titrate up/down by 1 LPM., Titration Interval: Q2 minutes and as needed., Notify Provider: For sudden DECREASE in resting SPO2 to less than 85% and when escalating delivery device., PACU I - Oxygen for saturation below 95% as indicated per anesthesia. PACU I - Discontinue oxygen when patient is responsive and oxygen saturation is maintained above 94% on room air or same as preanesthetic level. 1000 (Due) Continuous Medication Order 02/02/2023 02/03/2023 02/04/2023 isolyte-S pH 7.4 infusion Intravenous, Plasma-LYTE 148, isolyte-S, and isolyte-S pH 7.4 are considered equivalent - including for MAR barcode scanning., CONTINUOUS, Starting on Sat02/04/23 at 0800, Until Sat02/04/23 at 1455, Pre-Op 0756 (New Bag - Prov ider: Eleanor Campos RN)0833 (Continue from Pre-Op - Provider: Luis Sotomayor CRNA)0905 (Anes Intra-Op Fluid - Provider: Radha Baumann CRNA) isolyte-S pH 7.4 infusion Intravenous, at 100 mL/hr, For Periop use. Plasma-LYTE 148, isolyte-S, and isolyte-S pH 7.4 are considered equivalent - including for MAR barcode scanning., CONTINUOUS, Starting on Sat02/04/23 at 1000, Until Sat02/04/23 at 1359, Post-op 1000 (Due) PRN Medication Order 02/02/2023 02/03/2023 02/04/2023 dexAMETHasone Sodium Phosphate (Decadron) 4 MG/ML inj 4 mg 4 mg, IV Push, PRN Nausea, Starting on Sat02/04/23 at 0920, Until Sat02/04/23 at 1455, For 1 dose, PROTECT FROM LIGHT, PACU fentaNYL (PF) inj 25 mcg 25 mcg, IV Push, PRN Pain, Severe, Starting on Sat02/04/23 at 0920, Until Sat02/04/23 at 1455, For 6 doses, When given IV Push its recommended that the dose be given over 3 to 5 minutes., PACU HYDROmorphone (Dilaudid) inj 1 mg 1 mg, IV Push, Q3H PRN Pain, Severe, Starting on Sat02/04/23 at 0924, Until Sat02/04/23 at 1455, Post-op ondansetron (Zofran) inj 4 mg 4 mg, IV Push, PRN Nausea, Starting on Sat02/04/23 at 0920, Until Sat02/04/23 at 1455, For 1 dose, PACU oxyCODONE-acetaminophen 5-325 mg per tab (Percocet) 1 Tablet 1 Tablet, Oral, Q4H PRN Pain, Moderate, Starting on Sat02/04/23 at 0924, Until Sat02/04/23 at 1455, Maximum of 4 grams (4000 mg) of acetaminophen per day, Post-op sodium chloride IR 0.9 % irrigation (CANCELED) ONCE PRN INTRA PROCEDURE, Starting on Sat02/04/23 at 0907, Until Sat02/04/23 at 0908, Intra-Op 0907 (Given - Provid er: Chris Royal MD - Comment: qs - cysto) documented in this encounter Advance Directives Latest [...] and were consensually agreed upon. Care Teams Blocklayer Relationship Specialty Start Date End Date Nichole Lizarraga MD [address] [place] [address], [place] [address] PCP - General Internal Medicine 03/10/12 documented as of this encounter
--- OUTSIDE RECORDS SUMMARY | 2023-06-30 23:00 | External Medical Summary | Summary of Care ---
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) Chris Royal MD [address] [employer] [place] [address] [place] [address] Referral ID Status Reason Start Date Expiration Date Visits Requested Visits Authorized [id number] Pending Review Specialty Services Required 3 999 [...] (Late st Contact Info) Description 02/07/2023 Telephone [facility] Urology [address] [place] [address] [place] [address] Chris Royal MD [address] [employer] [place] [address] [place] [address] Allergies Active Allergy Reactions Criticality Noted Date Comments Penicillins Edema airway,Rash High 03/10/2012 Last dose age 14 Pollen 01/17/2021 Ragweed 11/05/2022 documented as of this encounter (statuses as of 02/07/2023) Medications Medication Sig Dispensed Refills Start Date [...] as of this encounter (statuses as of 02/07/2023) Active Problems Problem Noted Date Diagnosed Date Postmenopausal atrophic vaginitis 09/04/2022 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 Chronic kidney disease, stage 3b 04/30/2022 Overview: Per CKD protocol Urgency of urination 01/17/2021 Malignant neoplasm of dome of urinary bladder Hydronephrosis, left 11/23/2020 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 Other neutropenia 11/14/2018 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 Chronic neutropenia 01/06/2018 documented as of this encounter (statuses as of 02/07/2023) Resolved Problems Problem Noted Date Diagnosed Date Resolved Date Chronic kidney disease, stage 3a 05/29/2021 05/02/2022 Overview: Per CKD protocol Fever 09/13/2015 10/21/2017 Kidney stone on left side Inguinal hernia 10/21/2017 Overview: Surgical repair Neutropenia 10/21/2017 documented as of this encounter (statuses as of 02/07/2023) Immunizations Name Administration Dates Next Due COVID-19 mRNA, LNP-s, No Pre serve, 2-Dose Series ([employer]) 01/05/2021,05/07/2020,04/16/2020 COVID-19, LNP-s, No Preserve , Jasbir-sucrose, [...] encounter Miscellaneous Notes * Telephone Encounter - Chris Royal MD [...] should a massage be sent directly to [facility] office. If appt is ok, I [...] Description 02/12/2023 10:30 AM EST Nurse Only UrologyGino [facility] [address] [place] [address] [place] Nurse Urology [address] [place] [address] 02/26/2023 11:45 AM EST Office Visit Urology, [facility] 132 [facility] [place] [address] Chris Royal MD [address] [place] [address] [place] [address] 03/20/2023 8:15 AM EST Office Visit Hematology/Oncology [facility] 200 [facility] [place] [address] Aguilar Lizarraga MD 200 [facility] [place] [address] 06/24/2023 10:40 AM EDT Office Visit Nephrology, [facility] 200 [facility] [place] [address] Demetrius Sherman MD 200 [facility] [place] [address] 07/25/2023 11:15 AM EDT Office Visit Hematology/Oncology [facility] 200 [facility] [place] [address] Aguilar Lizarraga MD 200 [facility] [place], [place] [address] 11/12/2023 9:20 AM EDT Office Visit General Internal Medicine [facility] 200 [facility] [place] [address] Nichole Lizarraga MD 200 [facility] [place] [address] Scheduled Referrals Name Type Priority Associated Diagnoses [...] 03/13/2023 03/13/2022, 10/20 CKD PHOS USE SMARTSET 20532 03/13/2023 03/13/2022, 0 11/09/2021 Cologuard 06/09/2023 06/08/2020, 10/25/2016 Colorectal Cancer Screening 06/09/2023 GFR 07/30/2023 01/28/2023, 12/20, 08/23/2022, Additional history exists Mammogram 10/12/2023 10/11/2022, 05/0 04/2021, 01/18/2020, Additional history exists Depression Screening 11/07/2023 11/06/2022 CKD HGB USE SMARTSET 01046 01/29/202401/28, 01/28/2023, 12/13/2022, Additional history exists DXA [...] and were consensually agreed upon. Care Teams Community Educator Relationship Specialty Start Date End Date Nichole Lizarraga MD 200 [place] [address] PCP - General Internal Medicine 03/10/12 documented as of this encounter
--- OUTSIDE RECORDS SUMMARY | 2023-06-30 23:00 | External Medical Summary | Summary of Care ---
Author Name Unknown Organization [facility] Address [address] [facility] [address] Phone [phone] Care Team Providers Care Cpa Tax Name Role Phone Nichole Lizarraga MD Primary Care Provider + Reason for Visit * Reason Onset Date Comments Advice 01/29/2023 Patient stated t hat she had a question and when she asked the anesthesiologist RN told her that she needed to ask her provider. Her surgery is on 02/04/23. She is requesting a call back to have her question answered. Encounter Details Date Type Department Care Team (Late st Contact Info) Description 01/29/2023 Telephone General Internal Medicine [facility] 200 [facility] [place] [address] Nichole Lizarraga MD 200 [place] [address] Advice (Patient stated that she had a ques... Allergies Active Allergy Reactions Criticality Noted Date Comments Penicillins Edema airway,Rash High 03/10/2012 Last dose age 14 Pollen 01/17/2021 Ragweed 11/05/2022 documented as of this encounter (statuses as of 01/30/2023) Medications Medication Sig Dispensed Refills Start Date [...] a week 8 mL 5 12/04/2022 Active documented as of this encounter (statuses as of 01/30/2023) Active Problems Problem Noted Date Diagnosed Date Postmenopausal atrophic vaginitis 09/04/2022 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 Chronic kidney disease, stage 3b 04/30/2022 Overview: Per CKD protocol Urgency of urination 01/17/2021 Malignant neoplasm of dome of urinary bladder Hydronephrosis, left 11/23/2020 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 Other neutropenia 11/14/2018 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 Chronic neutropenia 01/06/2018 documented as of this encounter (statuses as of 01/30/2023) Resolved Problems Problem Noted Date Diagnosed Date Resolved Date Chronic kidney disease, stage 3a 05/29/2021 05/02/2022 Overview: Per CKD protocol Fever 09/13/2015 10/21/2017 Kidney stone on left side Inguinal hernia 10/21/2017 Overview: Surgical repair Neutropenia 10/21/2017 documented as of this encounter (statuses as of 01/30/2023) Immunizations Name Administration Dates Next Due COVID-19 mRNA, LNP-s, No Pre serve, 2-Dose Series ([employer]) 01/05/2021,05/07/2020,04/16/2020 COVID-19, LNP-s, No Preserve , Jasbir-sucrose, [...] Telephone Encounter - Dee Brush RN - 01/30/2023 12:15 PM EST Attempted to call patient, left message for patient to either return call or check MyG. * Telephone Encounter - Chino Kennedy OSA - 01/29/2023 10:[address] Lizarraga Patient stated that she had a question for the RN anesthesiologist and when she asked the question she told her that she needed to ask her provider. Her surgery is on 02/04/23. She is requesting a call back to have her question answered. The question is that which it best to inject zarxio on Saturday before the procedure or 3 hours before the procedure? documented in this encounter Plan of Treatment Upcoming Encounters Date Type Department Care Team (Latest Contact Info) Description 02/04/2023 8:20 AM EST Hospital Encounter [facility], Operating Room [facility] [address] [place] [id number] Chris Royal MD [address] [place] [address] [place] [address] 02/04/2023 8:20 AM EST - 02/04/2023 9:32 AM EST Surgery OR [facility], Operating Room [facility] [address] [place] [phone] Chris Royal MD [address] [place] [address] [place] [address] CYSTOURETHROSCOPY WITH FULGURATION SMALL BLADDER TUMOR 02/07/2023 11:00 AM EST [facility] [place] [address] [place], Nurse Urology [facility] 132 [facility] [place] [address] 02/26/2023 11:45 AM EST [facility] [address] Chris Royal MD 27 [facility] [address] [place] [address] 06/24/2023 10:40 AM EDT Office Visit Nephrology, [facility] 200 [facility] [place] [address] Demetrius Sherman MD 200 [facility] [place] [address] 07/25/2023 11:15 AM EDT Office Visit Hematology/Oncolog y [facility] [place] 200 [facility] [place] [address] Aguilar Lizarraga MD 200 [facility] [place] [address] 11/12/2023 9:20 AM EDT Office Visit General Internal Medicine [facility] [place] 200 [facility] [place] [address] Nichole Lizarraga MD 200 [facility] [place], [place] [address] Scheduled Procedures Name Priority Associated Diagnoses Date/Ti me CYSTOURETHROSCOPY WITH FULGURATION SMALL BLADDER TUMOR Abnormal cystoscopy 02/04/2023 8:20 AM EST Health Maintenance Due Date Last Done Comments Zoster Vaccines (1 of 2) 01/23/1971 Colonoscopy 01/23/1997 Fecal Occult Blood Test 01/23/1997 Sigmoidoscopy 01/23/1997 DTaP,Tdap,and Td Vaccines (2 - Td or Tdap) 09/02/2022 09/02/2012 Albumin/Creatinine Ratio 03/13/2023 03/13/2022, 10/20 CKD PHOS USE SMARTSET 47191 03/13/2023 03/13/2022, 0 11/09/2021 Cologuard 06/09/2023 06/08/2020, 10/25/2016 Colorectal Cancer Screening 06/09/2023 GFR 07/30/2023 01/28/2023, 12/20, 08/23/2022, Additional history exists Mammogram 10/12/2023 10/11/2022, 05/0 04/2021, 01/18/2020, Additional history exists Depression Screening 11/07/2023 11/06/2022 CKD HGB USE SMARTSET 81047 01/29/202401/28, 01/28/2023, 12/13/2022, Additional history exists DXA [...] Date Activated Date Inactivated Comments Full Code 06/05/2021 8:47 AM 06/05/2021 1:44 PM This order reflects the patients wishes and were consensually agreed upon. Code Status History Code Status Date Activated Date Inactivated Comments Full Code 06/05/2021 6:56 AM 06/05/2021 8:47 AM This order reflects the patients wishes and were consensually agreed upon. Full Code 02/01/2021 3:23 PM 02/03/2021 4:29 PM Thi s order reflects the patients wishes and were consensually agreed upon. Full Code 02/01/2021 8:47 AM 02/01/2021 3:23 PM Thi s order reflects the patients wishes and were consensually agreed upon. Full Code 01/09/2021 1:36 PM 01/09/2021 6:53 PM Thi s order reflects the patients wishes and were consensually agreed upon. Care Teams Cpa Tax Relationship Specialty Start Date End Date Nichole Lizarraga MD 200 [place] [address] PCP - General Internal Medicine 03/10/12 documented as of this encounter
--- OUTSIDE RECORDS SUMMARY | 2023-06-30 23:00 | External Medical Summary | Summary of Care ---
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 Urology [address] [place] [address] [place] [address] Chris Royal MD [address] [place] [address] Allergies Active [...] mRNA, LNP-s, No Pre serve, 2-Dose Series ([employer]) 01/05/2021,05/07/2020,04/16/2020 COVID-19, LNP-s, No Preserve , Jasbir-sucrose, [...] encounter Miscellaneous Notes * Telephone Encounter - Sujata Berger CMA [...] until 03/06) * Telephone Encounter - Ivanna Woodward, MED ASSIST - 02/07/2023 2:43 PM EST The soonest available with Dr Lizarraga is 03/20. Due to him out of office. I did schedule that for pt. Is that appt ok? Or should a massage be sent directly to [facility] office. If appt is ok, [...] him until July. [facility] let us please contact their office to arrange. Thanks, HM documented in this encounter Plan of Treatment Upcoming Encounters Date Type Department Care Team (Late st Contact Info) Description 02/12/2023 10:30 AM EST Nurse Only Urology, [facility] [address] [place] Nurse Urology [facility] 132 [place] [address] 02/26/2023 11:45 AM EST Office Visit Urology, [facility] 132 [facility] [place] [address] Chris Royal MD [address] [facility] [address] [place] [address] 03/20/2023 8:15 AM EST Office Visit Hematology/Oncology [facility] 200 [facility] [place] [address] Aguilar Lizarraga MD [address] [facility] [place] [address] 06/24/2023 10:40 AM EDT Office Visit Nephrology, [facility] 200 [facility] [place] [address] Demetrius Sherman MD 200 [facility] [place] [address] 07/25/2023 11:15 AM EDT Office Visit Hematology/Oncology [facility] [place] 200 [facility] [place] [address] Aguilar Lizarraga MD 200 [facility] [place] [address] 11/12/2023 9:20 AM EDT Office Visit General Internal Medicine [facility] [place] 200 [facility] [place] [address] Nichole Lizarraga MD [address] [facility] [address] [facility] [place] [address] Scheduled Referrals Name Type Priority Associated Diagnoses [...] 03/13/2023 03/13/2022, 10/20 CKD PHOS USE SMARTSET 86099 03/13/2023 03/13/2022, 0 11/09/2021 Cologuard 06/09/2023 06/08/2020, 10/25/2016 Colorectal Cancer Screening 06/09/2023 GFR 07/30/2023 01/28/2023, 12/20, 08/23/2022, Additional history exists Mammogram 10/12/2023 10/11/2022, 05/0 04/2021, 01/18/2020, Additional history exists Depression Screening 11/07/2023 11/06/2022 CKD HGB USE SMARTSET 49476 01/29/202401/28, 01/28/2023, 12/13/2022, Additional history exists DXA [...] were consensually agreed upon. Care Teams Manager Administration Relationship Specialty Start Date End Date Nichole Lizarraga MD 200 [place] [address] PCP - General Internal Medicine 03/10/12 documented as of this encounter
--- OUTSIDE RECORDS SUMMARY | 2023-06-30 23:00 | External Medical Summary | Summary of Care ---
Author Name Unknown Organization [facility] Address [address] [facility] [place] [address] Phone [phone] Care Team Providers Care Case Therapist Name Role Phone Nichole Lizarraga MD Primary Care Provider + Reason for Visit * Reason Onset Date Comments [facility]ice [facility] Encounter Details Date Type Department Care Team (Late st Contact Info) Description 02/04/2023 Telephone Urology, [facility] 132 [facility] [place] [address] Chris Royal MD 27 [facility] [address] [place] [address] Advice ([facility] 02/04) Allergies Active Allergy Reactions Criticality Noted Date Comments Penicillins Edema airway,Rash High 03/10/2012 Last dose age 14 Pollen 01/17/2021 Ragweed 11/05/2022 documented as of this encounter (statuses as of 02/05/2023) Medications Medication Sig Dispensed Refills Start Date [...] as of this encounter (statuses as of 02/05/2023) Active Problems Problem Noted Date Diagnosed Date Postmenopausal atrophic vaginitis 09/04/2022 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 Chronic kidney disease, stage 3b 04/30/2022 Overview: Per CKD protocol Urgency of urination 01/17/2021 Malignant neoplasm of dome of urinary bladder Hydronephrosis, left 11/23/2020 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 Other neutropenia 11/14/2018 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 Chronic neutropenia 01/06/2018 documented as of this encounter (statuses as of 02/05/2023) Resolved Problems Problem Noted Date Diagnosed Date Resolved Date Chronic kidney disease, stage 3a 05/29/2021 05/02/2022 Overview: Per CKD protocol Fever 09/13/2015 10/21/2017 Kidney stone on left side Inguinal hernia 10/21/2017 Overview: Surgical repair Neutropenia 10/21/2017 documented as of this encounter (statuses as of 02/05/2023) Immunizations Name Administration Dates Next Due COVID-19 mRNA, LNP-s, No Pre serve, 2-Dose Series ([employer]) 01/05/2021,05/07/2020,04/16/2020 COVID-19, LNP-s, No Preserve , [...] encounter Miscellaneous Notes * Telephone Encounter - Karen Patel LPN - 02/05/2023 9:20 AM EST Pt scheduled for 02/12/23 @ 1030 in [facility]. * Telephone Encounter - Hazel Mcclain LPN - 02/04/2023 10:28 AM EST Lmtcb. * Telephone Encounter - Hazel Mcclain LPN - 02/04/2023 10:27 AM EST ----- Message from Chris Royal MD sent at 02/04/2023 9:23 AM EST ----- Regarding: Trial of void Let us push patient's trial of void back until next week February 12. However, if patient is unable to tolerate Knox catheter, she can undergo trial of void on Saturday the of this week. Thanks, HM documented in this encounter Plan of Treatment Upcoming Encounters Date Type Department Care Team (Late st Contact Info) Description 02/07/2023 11:00 AM EST Nurse Only Urology, [facility] 132 [facility] [place] [address] [place] Nurse Urology Diana [facility] [place] [address] 02/26/2023 11:45 AM EST Office Visit Urology, [facility] 132 [facility] [place] [address] Chris Royal MD 27 [facility] [place] [address] [place] [address] 06/24/2023 10:40 AM EDT Office Visit Nephrology, [facility] [place] [address] Demetrius Sherman MD [address] [facility] [address] [place] [address] 07/25/2023 11:15 AM EDT Office Visit Hematology/Oncology [facility] [place] 200 [facility] [place] [address] Aguilar Lizarraga MD [address] [facility] [address] [place] [address] 11/12/2023 9:20 AM EDT Office Visit General Internal Medicine [facility] [place] 200 [facility] [place] [address] Nichole Lizarraga MD 200 [facility] [place] [address] Health Maintenance Due Date Last Done Comments Zoster Vaccines (1 of 2) 01/23/1971 Colonoscopy 01/23/1997 Fecal Occult Blood Test 01/23/1997 Sigmoidoscopy 01/23/1997 DTaP,Tdap,and Td Vaccines (2 - Td or Tdap) 09/02/2022 09/02/2012 Albumin/Creatinine Ratio 03/13/2023 03/13/2022, 09/2 03/2021 CKD PHOS USE SMARTSET 98910 03/13/2023 03/13/2022, 0 11/09/2021 Cologuard 06/09/2023 06/08/2020, 10/25/2016 Colorectal Cancer Screening 06/09/2023 GFR 07/30/2023 01/28/2023, 12/20, 08/23/2022, Additional history exists Mammogram 10/12/2023 10/11/2022, 05/0 04/2021, 01/18/2020, Additional history exists Depression Screening 11/07/2023 11/06/2022 CKD HGB USE SMARTSET 98109 01/29/202401/28, 01/28/2023, 12/13/2022, Additional history exists DXA [...] and were consensually agreed upon. Care Teams Case Therapist Relationship Specialty Start Date End Date Nichole Lizarraga MD 200 [place] [address] PCP - General Internal Medicine 03/10/12 documented as of this encounter
--- OUTSIDE RECORDS SUMMARY | 2023-06-30 23:00 | External Medical Summary ---
Author Name Unknown Address Unknown Organization K09[facility] [place] [address] Laboratory Report Ordering Provider Test Date Status KEN RAY 01/28/2023 10:54:20 Final Observation Date Value Abnormality Reference (Units ) Status Nucleated erythrocytes/100 leukocytes [Ratio] in Blood by Automated count 01/28/2023 10:54:20 Final Variant lymphocytes [Presence] in Blood by Light microscopy 01/28/2023 10:54:20 Present Abnormal None Seen Final Smudge cells [Presence] in Blood by Light microscopy 01/28/2023 10:54:20 Present Abnormal None Seen Final Performing Location [facility] [place] [address]
--- OUTSIDE RECORDS SUMMARY | 2023-06-30 23:00 | External Medical Summary ---
Author Name Unknown Address Unknown Organization K09:[facility] [place] [address] Laboratory Report Ordering Provider Test Date Status BIJAN WELCH 01/28/2023 10:54:20 Final Observation Date Value Abnormality Reference (Units ) Status BUN 01/28/2023 10:54:20 17 6-20 (mg/dL) Final Creatinine 01/28/2023 10:54:20 1.3 Above high normal 0.5-1.0 (mg/dL) Final Glomerular filtration rate/1.73 sq M.predicted [Volume Rate/Area] in Serum, Plasma or Blood by Creatinine-based formula (CKD-EPI) 01/28/2023 10:54:20 44 Below low normal >=60 (mL/min) Final eGFR is calculated based on the CKD-EPI 2020 equation SODIUM 01/28/2023 10:54:20 140 135-146 (m mol/L) Final Potassium 01/28/2023 10:54:20 4.3 3.5-5.1 (m mol/L) Final Cl 01/28/2023 10:54:20 106 98-107 (mm ol/L) Final CO2 01/28/2023 10:54:20 25 22-32 (mmo l/L) Final Anion gap 01/28/2023 10:54:20 9 7-15 (mmol /L) Final Glucose 01/28/2023 10:54:20 96 70-120 (mg /dL) Final Calcium 01/28/2023 10:54:20 9.2 8.4-10.2 ( mg/dL) Final Performing Location [facility] [place] [address]
--- OUTSIDE RECORDS SUMMARY | 2023-06-30 23:00 | External Medical Summary ---
Author Name Unknown Address Unknown Organization K01:[facility] - [address] [place] [address] Laboratory Report Ordering Provider Test Date Status BIJAN WELCH 01/28/2023 10:55:56 Final Observation Date Value Abnormality Reference (Units) Status Bacteria identified in Specimen by Culture 01/28/2023 10:55:56 No significant growth Final Test: Culture, Urine, Quanti tative
Specimen Source: Urine, Clean Catch
Specimen Type: Urine
Specimen Date: 01/28/2023 10:55 AM
Result Date: 01/29/2023 11:56 AM
Result Status: Final result
Resulting Lab: [facility]
[address]
[place] [address]

CULTURE

No significant growth

null Performing Location [facility] - [address] [place] [address]
--- OUTSIDE RECORDS SUMMARY | 2023-06-30 23:00 | External Medical Summary | Summary of Care ---
Author Name Unknown Organization [facility] Address [address] [facility] [place] [address] Phone [phone] Care Team Providers Care Line Maintainer Name Role Phone Nichole Lizarraga MD Primary Care Provider + Reason for Visit * Reason Comments Outpatient Testing Encounter Details Date Type Department Care Team (Late st Contact Info) Description 01/28/2023 11:00 AM EST Laboratory Laboratory Scenery [place] [address] [place] [phone] [place], Lab Scenery [address] [place] [address] Abnormal cystoscopy; Chronic neutropenia (HCC); Large granular lymphocytic leukemia (HCC); 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 Chronic neutropenia 01/06/2018 documented as of this encounter (statuses as of 01/28/2023) Resolved Problems Problem Noted Date Diagnosed Date Resolved Date Chronic kidney disease, stage 3a 05/29/2021 05/02/2022 Overview: Per CKD protocol Fever 09/13/2015 10/21/2017 Kidney stone on left side Inguinal hernia 10/21/2017 Overview: Surgical repair Neutropenia 10/21/2017 documented as of this encounter (statuses as of 01/28/2023) Immunizations Name Administration Dates Next Due COVID-19 mRNA, LNP-s, No Pre serve, 2-Dose Series ([employer]) 01/05/2021,05/07/2020,04/16/2020 COVID-19, LNP-s, No Preserve , Jasbir-sucrose, Ages 12+ (Pfizer) 09/06/2021 Covid-19, Mrna, Lnp-s, Pf, B ivalent, 30 Mcg, IM, 12 yrs and above (Pfizer) 01/31/2022 PPD 02/19/2017 Pneumococcal Conjugate Vacc, 13 Valent (Prevnar) 10/18/2017 Pneumococcal Polysaccharide PPV23 (Pneumovax) 10/21/2018 SEASONAL INFLUENZA, PF, 6 M & Above, IM , (FLULAVAL or FLUZONE) 11/28/2017 Season Influenza, Quad, PF, Adjuvanted, 65+ Yrs, IM (FLUAD) 10/27/2019 Seasonal Influenza, Quadriva lent Hd (Fluzone Hd) [...] Encounter OR [facility], Operating Room [facility] [address] [place] [phone] Chris Royal MD [address] [place] [address] [place] [address] 02/04/2023 8:20 AM EST - 02/04/2023 9:32 AM EST Surgery OR [facility], Operating Room [facility] [address] [place] [phone] Chris Royal MD [address] [place] [address] [place] [address] CYSTOURETHROSCOPY WITH FULGURATION SMALL BLADDER TUMOR 02/07/2023 11:00 AM EST Nurse Only Urology, [facility] [address] [place] [address] [facility] Nurse Urology [facility] [address] [place] [address] 02/26/2023 11:45 AM EST Office Visit Urology, [facility] [address] [address] Chris Royal MD [address] [place] [address] [place] [address] 06/24/2023 10:40 AM EDT Office Visit Nephrology, [address] [place] [address] Demetrius Sherman MD 200 [place] [address] 07/25/2023 11:15 AM EDT Office Visit Hematology/Oncolog y [facility] [address] [place], [place] [address] Aguilar Lizarraga MD [address] [place] [address] 11/12/2023 9:20 AM EDT Office Visit General Internal Medicine [facility] [address] [place], [place] [address] Nichole Lizarraga MD 200 [facility] [place] [address] Pending Results Name Type Priority Associated Diagnoses Date /Time BASIC METABOLIC PANEL Lab Routine Abnormal cystoscopy 01/28/2023 10:54 AM EST CBC WITH WBC DIFFERENTIAL Lab STAT 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) 01/28/2023 10:54 AM EST HEPATIC FUNCTION PANEL Lab STAT 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) 01/28/2023 10:54 AM EST CBC Lab STAT 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) 01/28/2023 10:54 AM EST DIFFERENTIAL, AUTOMATED Lab STAT 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) 01/28/2023 10:54 AM EST CULTURE, URINE, QUANTITATIVE Lab Routine Abnormal cystoscopy 01/28/2023 10:55 AM EST Scheduled Procedures Name Priority Associated Diagnoses Date/Ti me CYSTOURETHROSCOPY WITH FULGURATION SMALL BLADDER TUMOR Abnormal cystoscopy 02/04/2023 8:20 AM EST Health Maintenance Due Date Last Done Comments Zoster Vaccines (1 of 2) 01/23/1971 Colonoscopy 01/23/1997 Fecal Occult Blood Test 01/23/1997 Sigmoidoscopy 01/23/1997 DTaP,Tdap,and Td Vaccines (2 - Td or Tdap) 09/02/2022 09/02/2012 Albumin/Creatinine Ratio 03/13/2023 03/13/2022, 10/20 CKD PHOS USE SMARTSET 05196 03/13/2023 03/13/2022, 0 11/09/2021 Cologuard 06/09/2023 06/08/2020, 10/25/2016 Colorectal Cancer Screening 06/09/2023 GFR 07/16/2023 01/15/2023, 07/0 07/2022, 04/12/2022, Additional history exists Mammogram 10/12/2023 10/11/2022, 05/0 04/2021, 01/18/2020, Additional history exists Depression Screening 11/07/2023 11/06/2022 CKD HGB USE SMARTSET 02659 12/14/202312/13, 12/13/2022, 11/13/2022, Additional history exists DXA Scan 10/02/2024 10/02/2022, [...] as of this encounter Visit Diagnoses Diagnosis Abnormal cystoscopy Other nonspecific abnormal finding Chronic neutropenia (HCC) Other neutropenia Large granular lymphocytic leukemia (HCC) Other lymphoid leukemia, without mention of having achieved remission 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 Care Teams Line Maintainer Relationship Specialty Start Date End Date Nichole Lizarraga MD [address] [place] [address] [place], [place] [address] PCP - General Internal Medicine 03/10/12 documented as of this encounter
--- OUTSIDE RECORDS SUMMARY | 2023-06-30 23:00 | External Medical Summary | Summary of Care ---
Author Name Unknown Organization [facility] Address [address] [facility] [place] [address] Phone [phone] Care Team Providers Care Plastic Fabricator Name Role Phone Nichole Lizarraga MD Primary Care Provider + Reason for Visit * Reason Comments Outpatient Testing Encounter Details Date Type Department Care Team (Late st Contact Info) Description 01/28/2023 11:00 AM EST Laboratory Laboratory Scenery [place] [address] [place] [phone] [place], Lab Scenery [address] [place] [address] Abnormal cystoscopy; Chronic neutropenia (HCC); Large granular [...] mRNA, LNP-s, No Pre serve, 2-Dose Series ([employer] 01/05/2021,05/07/2020,04/16/2020 COVID-19, LNP-s, No Preserve , [...] Operating Room [facility] [address] [place] [phone] Chris Royal MD [address] [place] [address] [place] [address] 02/04/2023 8:20 AM EST - 02/04/2023 9:32 AM EST Surgery OR [facility], Operating Room [facility] [address] [place] [phone] Chris Royal MD [address] [place] [address] [place] [address] CYSTOURETHROSCOPY WITH FULGURATION SMALL BLADDER TUMOR 02/07/2023 11:00 AM EST Nurse Only Urology, [facility] [address] [place] [address] [facility] Nurse Urology [facility] [address] [place] [address] 02/26/2023 11:45 AM EST Office Visit Urology, [facility] [address] [address] Chris Royal MD [address] [place] [address] [place] [address] 06/24/2023 10:40 AM EDT Office Visit Nephrology, [address] [place] [address] Demetrius Sherman MD 200 [place] [address] 07/25/2023 11:15 AM EDT Office Visit Hematology/Oncolog y [facility] [address] [place], [place] [address] Aguilar Lizarraga MD [address] [place] [address] 11/12/2023 9:20 AM EDT Office Visit General Internal Medicine [facility] [address] [place], [place] [address] Nichole Lizarraga MD 200 [facility] [place] [address] Pending Results Name Type Priority Associated Diagnoses [...] 03/13/2023 03/13/2022, 10/20 CKD PHOS USE SMARTSET 98584 03/13/2023 03/13/2022, 0 11/09/2021 Cologuard 06/09/2023 06/08/2020, 10/25/2016 Colorectal Cancer Screening 06/09/2023 GFR 07/16/2023 01/15/2023, 07/0 07/2022, 04/12/2022, Additional history exists Mammogram 10/12/2023 10/11/2022, 05/0 04/2021, 01/18/2020, Additional history exists Depression Screening 11/07/2023 11/06/2022 CKD HGB USE SMARTSET 72610 12/14/202312/13, 12/13/2022, 11/13/2022, Additional history exists DXA [...] and were consensually agreed upon. Care Teams Plastic Fabricator Relationship Specialty Start Date End Date Nichole Lizarraga MD [address] [place] [address] [place], [place] [address] PCP - General Internal Medicine 03/10/12 documented as of this encounter
--- OUTSIDE RECORDS SUMMARY | 2023-06-30 23:00 | External Medical Summary ---
Author Name Unknown Address Unknown Organization K09:[facility] [place] [address] Laboratory Report Ordering Provider Test Date Status KEN RAY 01/28/2023 10:54:20 Final Observation Date Value Abnormality Reference (Units ) Status SYNC LEUKOCYTES IN BLOOD BY AUTOMATED COUNT 01/28/2023 10:54:20 4.56 4.00-10.80 (K/uL) Final Segs 01/28/2023 10:54:20 9.2 Below low normal 40.0-75.0 (%) Final Lymphs % 01/28/2023 10:54:20 76.3 Above high normal 18.0-42.0 (%) Final Monos 01/28/2023 10:54:20 9.4 1.0-11.0 (%) Final Eosinophils 01/28/2023 10:54:20 3.3 0.0-6.0 (%) Final Basos 01/28/2023 10:54:20 1.8 0.0-2.0 (%) Final Absolute Segs 01/28/2023 10:54:20 0.42 Below low normal 1.80-7.70 (K/uL) Final Lymphs, absolute 01/28/2023 10:54:20 3.48 1.00-4.80 (K/ul) Final Monos, Abs 01/28/2023 10:54:20 0.43 0.00-1.10 (K/uL) Final Eos, Abs 01/28/2023 10:54:20 0.15 0.00-0.70 (K/uL) Final Basos, Abs 01/28/2023 10:54:20 0.08 0.00-0.20 (K/uL) Final Performing Location [facility] [place] [address]
--- OUTSIDE RECORDS SUMMARY | 2023-06-30 23:00 | External Medical Summary | Summary of Care ---
Author Name Unknown Organization [facility] Address [address] [facility] [address] Phone [phone] Care Team Providers Care Sports Broadcasting Internship Name Role Phone Nichole Lizarraga MD Primary [...] Info) Description 01/29/2023 Telephone General Internal Medicine [facility] 200 [facility] [place] [address] Nichole Lizarraga MD 200 [place] [address] Advice (Patient stated that she had a [...] mRNA, LNP-s, No Pre serve, 2-Dose Series ([employer]) 01/05/2021,05/07/2020,04/16/2020 COVID-19, LNP-s, No Preserve , Jasbir-sucrose, [...] Operating Room [facility] [address] [place] [phone] Chris Royal MD [address] [place] [address] [place] [address] 02/04/2023 8:20 AM EST - 02/04/2023 9:32 AM EST Surgery OR [facility], Operating Room [facility] [address] [place] [phone] Chris Royal MD [address] [place] [address] [place] [address] CYSTOURETHROSCOPY WITH FULGURATION SMALL BLADDER TUMOR 02/07/2023 11:00 AM EST [facility] [address] [facility] [place] [address] [place], Nurse Urology [facility] 132 [facility] [place] [address] 02/26/2023 11:45 AM EST [facility] [address] [facility] [place] [address] Chris Royal MD 27 [facility] [address] [place] [address] 06/24/2023 10:40 AM EDT Office Visit Nephrology, [facility] 200 [facility] [place] [address] Demetrius Sherman MD 200 [facility] [place] [address] 07/25/2023 11:15 AM EDT Office Visit Hematology/Oncolog y [facility] [place] 200 [facility] [place] [address] Aguilar Lizarraga MD 200 [facility] [place] [address] 11/12/2023 9:20 AM EDT Office Visit General Internal Medicine [facility] [place] [facility] [place] [address] Nichole Lizarraga MD 200 [facility] [place], [place] [address] Scheduled Procedures Name Priority Associated Diagnoses Date/Ti me CYSTOURETHROSCOPY WITH FULGURATION SMALL BLADDER TUMOR Abnormal cystoscopy 02/04/2023 8:20 AM EST Health Maintenance Due Date Last Done Comments Zoster Vaccines (1 of 2) 01/23/1971 Colonoscopy 01/23/1997 Fecal Occult Blood Test 01/23/1997 Sigmoidoscopy 01/23/1997 DTaP,Tdap,and Td Vaccines (2 - Td or Tdap) 09/02/2022 09/02/2012 Albumin/Creatinine Ratio 03/13/2023 03/13/2022, 10/20 CKD PHOS USE SMARTSET 87218 03/13/2023 03/13/2022, 0 11/09/2021 Cologuard 06/09/2023 06/08/2020, 10/25/2016 Colorectal Cancer Screening 06/09/2023 GFR 07/30/2023 01/28/2023, 12/20, 08/23/2022, Additional history exists Mammogram 10/12/2023 10/11/2022, 05/0 04/2021, 01/18/2020, Additional history exists Depression Screening 11/07/2023 11/06/2022 CKD HGB USE SMARTSET 96926 01/29/202401/28, 01/28/2023, 12/13/2022, Additional history exists DXA [...] and were consensually agreed upon. Care Teams Sports Broadcasting Internship Relationship Specialty Start Date End Date Nichole Lizarraga MD 200 [place] [address] PCP - General Internal Medicine 03/10/12 documented as of this encounter
--- OUTSIDE RECORDS SUMMARY | 2023-06-30 23:00 | External Medical Summary ---
Author Name Unknown Address Unknown Organization K09:[facility] [place] [address] Laboratory Report Ordering Provider Test Date Status KEN RAY 01/28/2023 10:54:20 Final Observation Date Value Abnormality Reference (Units ) Status Albumin 01/28/2023 10:54:20 3.9 3.8-5.0 (g/dL) Final AST (Aspartate aminotransferase) 01/28/2023 10:54:20 18 10-35 (U/L) Final Alk Phos 01/28/2023 10:54:20 84 35-130 (U/L) Final ALT (Alanine aminotransferase) 01/28/2023 10:54:20 7 Below low normal 10-35 (U/L) Final Bilirubin, Total 01/28/2023 10:54:20 0.4 <=1.2 (mg/dL) Final Bilirubin, Direct 01/28/2023 10:54:20 <0.2 0.0-0.3 (mg/dL) Final Protein 01/28/2023 10:54:20 7.1 6.0-8.3 (g/dL) Final Performing Location [facility] [place] [address]
--- OUTSIDE RECORDS SUMMARY | 2023-06-30 23:00 | External Medical Summary | Summary of Care ---
Author Name Unknown Organization [facility] Address [address] [facility] [place] [address] Phone [phone] Care Team Providers Care Allergist/Pediatric Pulmonologist Name Role Phone Nichole Lizarraga MD Primary Care Provider + Reason for Visit * Reason Onset Date Comments [facility] Encounter Details Date Type Department Care Team (Late st Contact Info) Description 02/04/2023 Telephone Urology, [facility] 132 [facility] [place] [address] Chris Royal MD 27 [facility] [address] [place] [address] Advice ([facility] 02/04) Allergies Active Allergy Reactions Criticality Noted Date Comments Penicillins Edema airway,Rash High 03/10/2012 Last dose age 14 Pollen 01/17/2021 Ragweed 11/05/2022 documented as of this encounter (statuses as of 02/04/2023) Medications Medication Sig Dispensed Refills Start Date End Date Status Sulfamethoxazole-T rimethoprim 800-160 MG Oral Tablet (Bactrim DS) Take 1 Tablet by mouth in the morning and 1 Tablet before bedtime. 6 Tablet 0 02/04/2023 Active oxyCODONE-Acetamin ophen 5-325 MG Oral Tablet (Percocet) Take 1 Tablet by mouth every 6 hours as needed for Pain, Severe. 14 Tablet 0 02/04/2023 Active Phenazopyridine HCl 200 MG Oral Tablet (Pyridium) Take 1 Tablet by mouth 3 times a day as needed for Other (bladder spasms). After meals. 15 Tablet 0 02/04/2023 Active MULTIVITAMINS PO TABS 1 TABLET DAILY 0 03/10/2012 Suspended PROBIOTIC DAILY PO CAPS daily 0 Suspended Calcium Carbonate-Vitamin D 600-400 MG-UNIT Oral Tablet Chewable Take 1 Tablet by mouth in the morning. 0 10/11/2015 Suspended loratadine (CLARITIN) 10 MG Tablet Take 1 Tablet by mouth at bedtime. 30 Tab 5 10/16/2016 Suspended fluticasone (FLONASE) 50 MCG/ACT nasal sprayIndications:C hronic 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 1 Inhaler 5 04/21/2018 Suspended Additional Information Econazole Nitrate 1 % External Cream (Spectazole)Indica tions:Tinea pedis of both feet,Onychomycosis Apply 2x daily from ankles down to feet/nails 2x daily for about 1 month until resolved, then 2x weekly to maintain clearance 170 g 2 11/21/2021 Suspended Additional Information Solifenacin Succinate 5 MG Oral Tablet (VESIcare) Take 1 Tablet by mouth in the morning. 90 Tablet 3 06/21/2022 Suspended Additional Information Azelastine HCl 137 MCG/SPRAY Nasal SolutionIndication s:Chronic sinusitis, unspecified location ADMINISTER 1 SPRAY INTO NOSTRIL 2 TIMES A DAY. 90 mL 3 09/10/2022 Suspended Additional Information Zarxio 300 MCG/0.5ML Injection Solution Prefilled Syringe (Filgrastim-sndz)I ndications:Chronic neutropenia (HCC),Large granular lymphocytic leukemia (HCC) Inject 300 mcg (1 syringe) under the skin for 4 days a week 8 mL 5 12/04/2022 Suspended Additional Information documented as of this [...] mRNA, LNP-s, No Pre serve, 2-Dose Series ([employer]) 01/05/2021,05/07/2020,04/16/2020 COVID-19, LNP-s, No Preserve , Jasbir-sucrose, [...] Miscellaneous Notes * Telephone Encounter - Hazel Mcclain LPN [...] 02/07/2023 11:00 AM EST Nurse Only Urology, [facility] [address] [place] [address] [place], Nurse Urology [facility] [address] [place] [address] 02/26/2023 11:45 AM EST Office Visit Urology, [facility] 132 [facility] [place] [address] Chris Royal MD [address] [place] [address] [place] [address] 06/24/2023 10:40 AM EDT Office Visit Nephrology, [facility] 200 [facility] [place] [address] Demetrius Sherman MD 200 [facility] [place] [address] 07/25/2023 11:15 AM EDT Office Visit Hematology/Oncology [facility] 200 [facility] [place] [address] Aguilar Lizarraga MD 200 [facility] [place] [address] 11/12/2023 9:20 AM EDT Office Visit General Internal Medicine [facility] 200 [facility] [place] [address] Nichole Lizarraga MD 200 [facility] [place] [address] Scheduled Procedures Name Priority Associated Diagnoses Date/Ti me CYSTOURETHROSCOPY WITH FULGURATION SMALL BLADDER TUMOR Abnormal cystoscopy 02/04/2023 8:20 AM EST Health Maintenance Due Date Last Done Comments Zoster Vaccines (1 of 2) 01/23/1971 Colonoscopy 01/23/1997 Fecal Occult Blood Test 01/23/1997 Sigmoidoscopy 01/23/1997 DTaP,Tdap,and Td Vaccines (2 - Td or Tdap) 09/02/2022 09/02/2012 Albumin/Creatinine Ratio 03/13/2023 03/13/2022, 10/20 CKD PHOS USE SMARTSET 48536 03/13/2023 03/13/2022, 0 11/09/2021 Cologuard 06/09/2023 06/08/2020, 10/25/2016 Colorectal Cancer Screening 06/09/2023 GFR 07/30/2023 01/28/2023, 12/20, 08/23/2022, Additional history exists Mammogram 10/12/2023 10/11/2022, 05/0 04/2021, 01/18/2020, Additional history exists Depression Screening 11/07/2023 11/06/2022 CKD HGB USE SMARTSET 53430 01/29/202401/28, 01/28/2023, 12/13/2022, Additional history exists DXA [...] Inactivated Comments Full Code 02/04/2023 9:25 AM This orde r reflects the patients wishes and were consensually [...] and were consensually agreed upon. Care Teams Allergist/Pediatric Pulmonologist Relationship Specialty Start Date End Date Nichole Lizarraga MD 200 [facility] [place] [address] PCP - General Internal Medicine 03/10/12 documented as of this encounter
--- OUTSIDE RECORDS SUMMARY | 2023-06-30 23:00 | External Medical Summary | Summary of Care ---
Author Name Unknown Organization [facility] Address [address] [place] [facility] [place] [address] Phone [phone] Care Team Providers Care Car Sales Consultant Name Role Phone Nichole Lizarraga MD Primary Care Provider + Encounter Details Date Type Department Care Team ([facility] st Contact Info) Description 01/29/2023 Specialty Pharmacy [facility], [address] [address] Medication, [place] Special[facility] Refill, [address] [address] Allergies Active Allergy Reactions Criticality Noted Date Comments Penicillins Edema airway,Rash High 03/10/2012 Last dose age 14 Pollen 01/17/2021 Ragweed 11/05/2022 documented as of this encounter (statuses as of 01/29/2023) Medications Medication Sig Dispensed Refills Start Date [...] as of this encounter (statuses as of 01/29/2023) Active Problems Problem Noted Date Diagnosed Date Postmenopausal atrophic vaginitis 09/04/2022 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 Chronic kidney disease, stage 3b 04/30/2022 Overview: Per CKD protocol Urgency of urination 01/17/2021 Malignant neoplasm of dome of urinary bladder Hydronephrosis, left 11/23/2020 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 Other neutropenia 11/14/2018 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 Chronic neutropenia 01/06/2018 documented as of this encounter (statuses as of 01/29/2023) Resolved Problems Problem Noted Date Diagnosed Date Resolved Date Chronic kidney disease, stage 3a 05/29/2021 05/02/2022 Overview: Per CKD protocol Fever 09/13/2015 10/21/2017 Kidney stone on left side Inguinal hernia 10/21/2017 Overview: Surgical repair Neutropenia 10/21/2017 documented as of this encounter (statuses as of 01/29/2023) Immunizations Name Administration Dates Next Due COVID-19 mRNA, LNP-s, No Pre serve, 2-Dose Series (Revolve.) 01/05/2021,05/07/2020,04/16/2020 COVID-19, LNP-s, No Preserve , Jasbir-sucrose, [...] as of this encounter Progress Notes * Belgica Alexander PHARM Tech - 01/29/2023 9:31 AM EST Prescribed medication: Medication: [id number] Shipment date: 02/04 Delivery method: Specialty Mail Location Medication Delivered too? Prescription Address: . [address] [place] [address] [place] [address] JOHN Escoto [facility] 01/29/2023,9:31 AM documented in this encounter Plan of Treatment Upcoming Encounters Date Type Department Care Team (Latest Contact Info) Description 02/04/2023 8:20 AM EST Hospital Encounter OR [facility], Operating Room [facility] [address] [place] [phone] Chris Royal MD [address] [place] [address] [place] [address] 02/04/2023 8:20 AM EST - 02/04/2023 9:32 AM EST Surgery OR [facility], Operating Room [facility] [address] [place] [phone] Chris Royal MD [address] [place] [address] [place] [address] CYSTOURETHROSCOPY WITH FULGURATION SMALL BLADDER TUMOR 02/07/2023 11:00 AM EST [facility] [address] [place] [address] [place] Nurse Urology [place] [address] [place] [address] 02/26/2023 11:45 AM EST Office Visit [facility] [place] [address] [place] [address] Chris Royal MD [address] [place] [address] [place] [address] 06/24/2023 10:40 AM EDT Office Visit Nephrology, [facility] [address] [facility] [place] [address] Demetrius Sherman MD [address] [facility] [place] [address] 07/25/2023 11:15 AM EDT Office Visit Hematology/Oncolog y [facility] [address] [facility] [place] [address] Aguilar Lizarraga MD [address] [facility] [place] [address] 11/12/2023 9:20 AM EDT Office Visit General Internal Medicine [facility] [address] [facility] [place] [address] Nichole Lizarraga MD [address] [facility] [place], [place] [address] Scheduled Procedures Name Priority Associated Diagnoses Date/Ti me CYSTOURETHROSCOPY WITH FULGURATION SMALL BLADDER TUMOR Abnormal cystoscopy 02/04/2023 8:20 AM EST Health Maintenance Due Date Last Done Comments Zoster Vaccines (1 of 2) 01/23/1971 Colonoscopy 01/23/1997 Fecal Occult Blood Test 01/23/1997 Sigmoidoscopy 01/23/1997 DTaP,Tdap,and Td Vaccines (2 - Td or Tdap) 09/02/2022 09/02/2012 Albumin/Creatinine Ratio 03/13/2023 03/13/2022, 10/20 CKD PHOS USE SMARTSET 71986 03/13/2023 03/13/2022, 0 11/09/2021 Cologuard 06/09/2023 06/08/2020, 10/25/2016 Colorectal Cancer Screening 06/09/2023 GFR 07/30/2023 01/28/2023, 12/20, 08/23/2022, Additional history exists Mammogram 10/12/2023 10/11/2022, 05/0 04/2021, 01/18/2020, Additional history exists Depression Screening 11/07/2023 11/06/2022 CKD HGB USE SMARTSET 87334 01/29/202401/28, 01/28/2023, 12/13/2022, Additional history exists DXA [...] were consensually agreed upon. Care Teams Car Sales Consultant Relationship Specialty Start Date End Date Nichole Lizarraga MD [address] [facility] [place] [address] PCP - General Internal Medicine 03/10/12 documented as of this encounter
--- OUTSIDE RECORDS SUMMARY | 2023-06-30 23:01 | External Medical Summary | Summary of Care ---
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 Procedures CT ABD/PELVIS W WO IV CONTRAST - WO ORAL CONT Chris Royal MD [address] [place] [address] [place] [address] Referral ID Status Reason Start Date Expiration Date V isits Requested Visits Authorized [id number] Pending Review 01/15/2023 999 999 Reason for Visit * Reason Comments Cystoscopy Encounter Details Date Type Department Care Team (Latest Contact Info) Description 01/15/2023 1:00 PM EST Procedure Only Urology, [facility] [address] [facility] [place] [address] Chris Royal MD [address] [place] [address] [place] [address] 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),Hydronephrosis, left,Ureteral tumor,Abnormal cystoscopy 1 Tablet OR ONCE 01/15/2023 01/16/2023 Active documented as of this encounter (statuses as of 01/15/2023) Active Problems Problem Noted Date Diagnosed Date Postmenopausal atrophic vaginitis 09/04/2022 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 Chronic kidney disease, stage 3b 04/30/2022 Overview: Per CKD protocol Urgency of urination 01/17/2021 Malignant neoplasm of dome of urinary bladder Hydronephrosis, left 11/23/2020 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 Other neutropenia 11/14/2018 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 Chronic neutropenia 01/06/2018 documented as of this encounter (statuses as of 01/15/2023) Resolved Problems Problem Noted Date Diagnosed Date Resolved Date Chronic kidney disease, stage 3a 05/29/2021 05/02/2022 Overview: Per CKD protocol Fever 09/13/2015 10/21/2017 Kidney stone on left side Inguinal hernia 10/21/2017 Overview: Surgical repair Neutropenia 10/21/2017 documented as of this encounter (statuses as of 01/15/2023) Immunizations Name Administration Dates Next Due COVID-19 mRNA, LNP-s, No Pre serve, 2-Dose Series (trend.ly) 01/05/2021,05/07/2020,04/16/2020 COVID-19, LNP-s, No Preserve , Jasbir-sucrose, Ages 12+ (trend.ly) 09/06/2021 Covid-19, Mrna, Lnp-s, Pf, B ivalent, 30 Mcg, IM, 12 yrs and above (trend.ly) 01/31/2022 PPD 02/19/2017 Pneumococcal Conjugate Vacc, 13 [...] Progress Notes * Chris Royal MD - 01/15/2023 1:00 PM EST [id number] PCP: NICHOLE LIZARRAGA[address] [place] [address] [phone] Linsey Estrella is a 72 year old female, who presents for cystoscopy for evaluation of her history of urothelial CA. Her past notes are reviewed. It has been 2 years since her interventions for urothelial CA. Patient feels her voiding has essentially returned to baseline. Urinary Incontinence: Patient is being seen for [...] carcinoma: Presented to Urology Nov 2020. Stella CHOUHARIS Jan 2021. High grade pT2 N0 R0 urothelial CA. CT scan August 2022: IMPRESSION Enlarging 18 x 10 millimeter nodular enhancement at the anterior bladder dome of unclear etiology. Recommend attention on follow-up.. Current Outpatient Medications Medication Sig Dispense Refill [...] Use Never User Vaping/E-Cigarette Substances Vaping/E-Cigarette Devices Past Surgical History: Procedure Laterality Date CYSTOSCOPY/TREAT MINOR LESION(S) N/A 01/09/2021 CYSTOURETHROSCOPY WITH FULGURATION MINOR BLADDER TUMOR performed by Chris Royal MD at OR [facility] CYSTOSCOPY/TREAT MINOR LESION(S) N/A 06/05/2021 CYSTOURETHROSCOPY WITH FULGURATION MINOR BLADDER TUMOR performed by Chris Royal MD at OR [facility] DENTAL SURGERY PROCEDURE NEC INCISION OF WIN[place], PLANNED Left 02/04/2017 TRACHEOSTOMY PLANNED performed by Nick Singh DO at OR [facility] INFORMATION 02/04/2017 never had a trach INFORMATION 1989 kidney stone removal LAPARO REMOVE K/URETER Left 02/01/2021 LAPAROSCOPIC NEPHRECTOMY TOTAL URETERECTOMY performed by Chris Royal MD at OR [facility] LARYNGOSCOPY, VOCAL CORD EXCISION/STRIPPING Left 02/04/2017 LARYNGOSCOPY DIRECT STRIPPING VOCAL CORD WITH MICROSCOPE performed by Nick Singh DO at OR [facility] REPAIR INITIAL INGUINAL HERNIA REDUCIBLE AGE 7 [...] Postmenopausal atrophic vaginitis N95.2 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 Female : (+) see HPI Physical Exam Nursing note reviewed. Constitutional: General: She is not in acute distress. Appearance: She is not toxic-appearing. Genitourinary: Comments: Severe atrophic vaginitis Cystoscopy Procedure Note: Patient was properly identified and appropriate consent was confirmed. Risks and benefits of the procedure were reviewed and the patient was prepped and draped in the standard fashion for the procedure. A well lubricated 16 Lithuanian flexible cystoscope was introduced through the meatus into the urethra. Urethra demonstrated atrophic changes . Bladder neck was visualized and bladder was entered. Sterile saline irrigation was used to distend the bladder which was noted to have a worsening area of inflammation and abnormality at dome without papillary changes with no significant trabeculation. Bladder was completely inspected including retroflexion of the scope. Ureteral orifices were noted to be in normal anatomic location on the right with left ureteral orifice resected. Patient tolerated the procedure well without complications or difficulties. Remote Sensing Scientist was present for entire procedure. Perioperative Bactrim was provided. Impression/Plan: 72 yo female with history of urothelial CA, abnormal cystoscopy. Will obtain a CT urogram at next available opportunity. Will proceed with a cystoscopy and biopsy with office fulguration. Patient is offered cysto biopsy in OR, declines for now. Will see at the time of intraoperative evaluation. Chris Royal MD 9:57 AM 01/15/2023 documented in this encounter Nursing Notes * Hazel Mcclain LPN - 01/15/2023 12:58 PM EST 4 month repeat cystoscopy. Consent signed. documented in this encounter Plan of Treatment Upcoming Encounters Date Type Department Care Team (Late st Contact Info) Description 01/21/2023 11:15 AM EST Procedure Only Urology, [facility] [address] [facility] [place] [address] Chris Royal MD [address] [facility] [place] [address] [place] [address] 01/23/2023 1:15 PM EST Office Visit Hematology/Oncology [facility] [place] [address] [facility] [place] [address] Flor Lizarraga MD [address] [facility] [place] [address] 06/24/2023 10:40 AM EDT Office Visit Nephrology, [facility] [address] [facility] [place] [address] Demetrius Sherman MD [address] [facility] [place], [place] [address] 11/12/2023 9:20 AM EDT Office Visit General Internal Medicine [facility] [place] [address] [facility] [place] [address] Nichole Lizarraga MD [address] [facility] [address] [place], [place] [address] Pending Results Name Type Priority Associated Diagnoses Date /Time CREATININE Lab Routine 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 01/15/2023 2:04 PM EST Scheduled Orders Name Type Priority Associated Diagnoses Orde r Schedule CT ABD/PELVIS W WO IV CONTRAST - WO ORAL CONT Medical Imaging Routine 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 Expected: 01/15/2023, Expires: 02/15/2024 CREATININE Lab Routine 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 Expected: 01/15/2023, Expires: 01/16/2024 CYSTOSCOPY Procedures Routine 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 Ordered: 01/15/2023 Health Maintenance Due Date Last Done Comments Zoster Vaccines (1 of 2) 01/23/1971 Colonoscopy 01/23/1997 Fecal Occult Blood Test 01/23/1997 Sigmoidoscopy 01/23/1997 DTaP,Tdap,and Td Vaccines (2 - Td or Tdap) 09/02/2022 09/02/2012 GFR 02/23/2023 08/23/2022, 03/22, 01/31/2022, Additional history exists Albumin/Creatinine Ratio 03/13/2023 03/13/2022, 10/20 CKD PHOS USE SMARTSET 31272 03/13/2023 03/13/2022, 0 11/09/2021 Cologuard 06/09/2023 06/08/2020, 10/25/2016 Colorectal Cancer Screening 06/09/2023 Mammogram 10/12/2023 10/11/2022, 05/0 04/2021, 01/18/2020, Additional history exists Depression Screening 11/07/2023 11/06/2022 CKD HGB USE SMARTSET 12653 12/14/202312/13, 12/13/2022, 11/13/2022, Additional history exists DXA [...] of dome of urinary bladder Hydronephrosis, left Hydronephrosis Ureteral tumor Neoplasm of unspecified nature of other genitourinary organs Abnormal cystoscopy Other nonspecific abnormal finding Postmenopausal atrophic vaginitis Urgency of urination documented in this encounter Advance Directives Latest [...] and were consensually agreed upon. Care Teams Finish Remover Relationship Specialty Start Date End Date Nichole Lizarraga MD [address] [place] [address] PCP - General Internal Medicine 03/10/12 documented as of this encounter
--- OUTSIDE RECORDS SUMMARY | 2023-06-30 23:01 | External Medical Summary | Summary of Care ---
Author Name Unknown Organization [facility] Address [address] [facility] [place] [address] Phone [phone] Care Team Providers Care Reinsurance Clerk Name Role Phone Nichole Lizarraga MD Primary Care Provider + Reason for Visit * Reason Comments Follow Up 6M Encounter Details Date Type Department Care Team (Late st Contact Info) Description 01/23/2023 1:15 PM EST Office Visit Hematology/Oncology [facility] [place] [address] [facility] [place] [address] Aguilar Lizarraga MD [address] [place] [address] Chronic neutropenia (HCC)*; Large granular lymphocytic leukemia (HCC); 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); Carcinoma of left ureter (HCC) Allergies Active Allergy Reactions Criticality Noted Date Comments Penicillins Edema airway,Rash High 03/10/2012 Last dose age 14 Pollen 01/17/2021 Ragweed 11/05/2022 documented as of this encounter (statuses as of 01/23/2023) Medications Medication Sig Dispensed Refills Start Date [...] as of this encounter (statuses as of 01/23/2023) Active Problems Problem Noted Date Diagnosed Date Postmenopausal atrophic vaginitis 09/04/2022 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 Chronic kidney disease, stage 3b 04/30/2022 Overview: Per CKD protocol Urgency of urination 01/17/2021 Malignant neoplasm of dome of urinary bladder Hydronephrosis, left 11/23/2020 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 Other neutropenia 11/14/2018 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 Chronic neutropenia 01/06/2018 documented as of this encounter (statuses as of 01/23/2023) Resolved Problems Problem Noted Date Diagnosed Date Resolved Date Chronic kidney disease, stage 3a 05/29/2021 05/02/2022 Overview: Per CKD protocol Fever 09/13/2015 10/21/2017 Kidney stone on left side Inguinal hernia 10/21/2017 Overview: Surgical repair Neutropenia 10/21/2017 documented as of this encounter (statuses as of 01/23/2023) Immunizations Name Administration Dates Next Due COVID-19 mRNA, LNP-s, No Pre serve, 2-Dose Series ([email or web address]) 01/05/2021,05/07/2020,04/16/2020 COVID-19, LNP-s, No Preserve , Jasbir-sucrose, [...] Sign Reading Time Taken Comments Blood Pressure 148/69 01/23/2023 1:08 PM EST Pulse 85 01/23/2023 1:08 PM EST Temperature 36.4 C (97.5 F) 01/23/2023 1:08 PM ES T Respiratory Rate - - Oxygen Saturation 97% 01/23/2023 1:08 PM EST Inhaled Oxygen Concentration - - Weight 56.3 kg (124 lb 3.2 oz) 01/23/2023 1:08 P M EST Height - - Body Mass Index 21.49 11/06/2022 9:26 AM EDT documented in this encounter Progress Notes * Aguilar Lizarraga MD - 01/23/2023 1:15 PM EST Antony: Linsey Estrella :1950 73-year-old female, DIAGNOSIS: Large granular lymphocytosis, severe neutropenia. She has chronic neutropenia since 2012 T-cell gene rearrangement positive (gamma). No anemia. No thrombocytopenia. 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 -1 lymph node negative for metastatic disease -pathological T2 N0. CURRENT TREATMENT: As of 01/23/2022, she is on Neupogen at 300 microgram 4 days a week ( Saturday, Saturday, Saturday). -will continue Neupogen 4 days a week. Recently she completed intravesical BCG treatment last one was in 11/2021. Presently she is not on any antibiotic prophylaxis. - She was seen by boomswing operator Dr. Viky Sequeira at [facility], I reviewed consult note, suggested [...] 5 days in a week, ANC improves. PREVIOUS TREATMENT: She had received briefly Neupogen treatment. - Received Neupogen at 300 mcg initially twice a week with some slight improvement of the WBC count, change to once a week somewhere in December,. No significant improvement of the white blood cell count noted, in August, decided to discontinue Neupogen therapy, DIAGNOSTIC WORKUP: -Bone marrow exam done on [...] -Normal female chromosome noted. OTHER IMPORTANT HISTORY: Lately noticed some more infections. -she had a vocal cord active infection that required ENT intervention. - left lacrimal duct infection treated with clindamycin antibiotic. -she had some skin infection with bullous impetigo. She was seen at [facility] ER on 11/14/2017: Blood workup done on 11/14/2017: -WBC 2600, H&H of 13.9/42.6, MCV 83.9, Platelet count of 318,000 -ANC 0.05, absolute lymphocyte count 2100. -CT scan of the neck 1. Abnormal thickening and enhancement centered at the right external auditory canal which containsa trace amount of fluid. There is also trace fluid within the right middle ear cavity. Mild fast stranding extending medial to the parotid gland. These findings are consistent with otitis externa. Clinical correlation recommended to exclude the possibility of necrotizing otitis externa which can beseen in the setting of diabetes or an immunocompromised patient. 2. Enhancement and hypertrophy of the right parotid gland which is likely reactive. 3. Right upper cervical lymphadenopathy is also likely reactive. 4. Linear density within the right upper lobe is partially visualized. This favors scarring but is only partially visualized on this study. Follow-up nonemergent chest CT could be performed for further evaluation. She was started on 2 different antibiotic in the form of Cefdinivir and ciprofloxacin. She had abnormal kidney function test, serum creatinine around 1.3, she had ultrasound which showedleft hydronephrosis. -CT scan of the abdomen pelvis done [...] T2 N0. Based on pathological T2 N0, I would not consider for adjuvant chemotherapy especially when she already has significant neutropenia and requiring Neupogen support. INTERVAL HISTORY: She has come the clinic [...] performed by Chris Royal MD at OR [facility] CYSTOSCOPY/TREAT MINOR LESION(S) N/A 06/05/2021 CYSTOURETHROSCOPY WITH FULGURATION MINOR BLADDER TUMOR performed by Chris Royal MD at OR [facility] DENTAL SURGERY PROCEDURE NEC INCISION OF [place], PLANNED Left 02/04/2017 TRACHEOSTOMY PLANNED performed by Nick Singh DO at [place] [facility] INFORMATION 02/04/2017 never had a trach INFORMATION 1989 kidney stone removal LAPARO REMOVE K/URETER Left 02/01/2021 LAPAROSCOPIC NEPHRECTOMY TOTAL URETERECTOMY performed by Chris Royal MD at OR [facility] LARYNGOSCOPY, VOCAL CORD EXCISION/STRIPPING Left 02/04/2017 LARYNGOSCOPY DIRECT STRIPPING VOCAL CORD WITH MICROSCOPE performed by Nick Singh DO at OR [facility] REPAIR INITIAL INGUINAL HERNIA [...] file Gets together: Not on file Attends gnosticist service: Not on file Active member of [...] Narrative Not on file On exam: BP 148/69 (BP Site: Right Arm, BP Position: Sitting, BP Cuff Size: Regular) | Pulse 85 | Temp 36.4 C (97.5 F) | Wt 56.3 kg (124 lb 3.2 oz) | SpO2 97% | BMI 21.49 kg/m | BSA 1.59 m Constitutional: Patient [...] - Serum creatinine level --> 1.2 (01/15/2023). CT scan of the abdomen pelvis (05/22/2021 [...] no obvious enhancing lesion. No ureteral obstruction. ASSESSMENT AND PLAN: 72-year-old the female, who [...] or skin rash. She was seen by boomswing operator Dr. Viky Sequeira at [facility] in February 2018, additional MDS [...] intravesical BCG afterwards. Last of November 2021. BCG treatment was in last week. She gets periodic cystoscopic evaluation by Dr. Royal. No new hematuria. No new infectious complications. Recent blood workup showed some mild thrombocytopenia, latest blood workup showed improvement of Platelet count. She gets blood workup every monthly. Reviewed latest the CT scan of the abdomen pelvis done in December of 2022. She will have further evaluation of the bladder dome lesion by Dr. Royal. I am planning for CBCD, liver function test when she goes for the blood workup ordered by Dr. Royal. Will see her back in the clinic in about [address] Aguilar Lizarraga Hem/Onc (This note was completed using the dictation program Fluency Direct. As such, there may be misspellings word substitutions, or other variations that should not change the essence of the clinical content of this encounter note. If there is need for further clarification, please direct questions to the provider listed above.) documented in this encounter Nursing Notes * Madi Elder MED ASSIST - 01/23/2023 1:09 PM EST Patient identified by name and date of . Do you have any concerns about pain management for today's visit? No Living Will or Advance Directive for Health Care as noted on problem list. My [facility] is a way you can talk to your provider online through e-mail. Would you like to sign up? I can activate it for you? ALREADY ACTIVE BP 148/69 (BP Site: Right Arm, BP Position: Sitting, BP Cuff Size: Regular) | Pulse 85 | Temp 36.4 C (97.5 F) | Wt 56.3 kg (124 lb 3.2 oz) | SpO2 97% | BMI 21.49 kg/m | BSA 1.59 m Patient was instructed to not get up [...] Department Care Team (Latest Contact Info) Description 01/28/2023 11:00 AM EST Laboratory Laboratory [facility] [place] [address] [place] [id number] Cory Del[facility] [address] [place] [address] 02/04/2023 8:30 AM EST Hospital Encounter [facility], Operating Room [facility] [address] [place] [phone] Chris Royal MD [address] [place] [address] [place] [address] 02/04/2023 8:30 AM EST - 02/04/2023 9:42 AM EST Surgery OR [facility], Operating Room [facility] [address] [place] [phone] Chris Royal MD [address] [address] [place] [address] CYSTOURETHROSCOPY WITH FULGURATION SMALL BLADDER TUMOR 02/07/2023 11:00 AM EST Nurse Only Urology, [facility] [address] [facility] [place] [address] Nurse [place]vis Urology [facility] [address] [place] [address] 02/26/2023 11:45 AM EST Office Visit Urology, [facility] [address] [place] [address] Chris Royal MD [address] [place] [address] [place] [address] 06/24/2023 10:40 AM EDT Office Visit Nephrology, [facility] [address] [place], [place] [address] Demetrius Sherman MD [address] [place] [address] 07/25/2023 11:15 AM EDT Office Visit Hematology/Oncolo gy [facility] [address] [place] [address] Aguilar Lizarraga MD [address] [facility] [place], [place] [address] 11/12/2023 9:20 AM EDT Office Visit General Internal Medicine [facility] [address] [facility] [place] [address] Nichole Lizarraga MD [address] [facility] [place], [place] [address] Scheduled Orders Name Type Priority Associated Diagnoses Orde r Schedule CBC WITH WBC DIFFERENTIAL Lab STAT 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) Expected: 01/28/2023, Expires: 2024 HEPATIC FUNCTION PANEL Lab STAT 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) Expected: 01/28/2023, Expires: 2024 Scheduled Procedures Name Priority Associated Diagnoses Date/Ti me CYSTOURETHROSCOPY WITH FULGURATION SMALL BLADDER TUMOR Abnormal cystoscopy 02/04/2023 8:30 AM EST Health Maintenance Due Date Last Done Comments Zoster Vaccines (1 of 2) 01/23/1971 Colonoscopy 01/23/1997 Fecal Occult Blood Test 01/23/1997 Sigmoidoscopy 01/23/1997 DTaP,Tdap,and Td Vaccines (2 - Td or Tdap) 09/02/2022 09/02/2012 Albumin/Creatinine Ratio 03/13/2023 03/13/2022, 10/20 CKD PHOS USE SMARTSET 78439 03/13/2023 03/13/2022, 0 11/09/2021 Cologuard 06/09/2023 06/08/2020, 10/25/2016 Colorectal Cancer Screening 06/09/2023 GFR 07/16/2023 01/15/2023, 07/0 07/2022, 04/12/2022, Additional history exists Mammogram 10/12/2023 10/11/2022, 05/0 04/2021, 01/18/2020, Additional history exists Depression Screening 11/07/2023 11/06/2022 CKD HGB USE SMARTSET 22220 12/14/202312/13, 12/13/2022, 11/13/2022, Additional history exists DXA [...] this encounter Visit Diagnoses Diagnosis Chronic neutropenia (HCC)- Primary Other neutropenia Large granular lymphocytic leukemia (HCC) [...] and were consensually agreed upon. Care Teams Reinsurance Clerk Relationship Specialty Start Date End Date Nichole Lizarraga MD [address] [place] [id number] PCP - General Internal Medicine 03/10/12 documented as of this encounter"
--- OUTSIDE RECORDS SUMMARY | 2023-06-30 23:01 | External Medical Summary ---
Author Name Unknown Address Unknown Organization K[facility] [address] [place] [address] Laboratory Report Ordering Provider Test Date Status BIJAN WELCH 01/15/2023 14:04:40 Final Observation Date Value Abnormality Reference (Units ) Status Creatinine 01/15/2023 14:04:40 1.2 Above high normal 0.5-1.0 (mg/dL) Final Glomerular filtration rate/1.73 sq M.predicted [Volume Rate/Area] in Serum, Plasma or Blood by Creatinine-based formula (CKD-EPI) 01/15/2023 14:04:40 47 Below low normal >=60 (mL/min) Final eGFR is calculated based on the CKD-EPI 2020 equation Performing Location [facility] [address] [place] [address]
--- OUTSIDE RECORDS SUMMARY | 2023-06-30 23:01 | External Medical Summary | Summary of Care ---
Author Name Unknown Organization [facility] Address [address] [facility] [place] [address] Phone [phone] Care Team Providers Care Receiving Inspector Name Role Phone Nichole Lizarraga MD Primary Care Provider + Reason for Visit * Reason Onset Date Comments Test Results 01/17/2023 Encounter Details Date Type Department Care Team (Late st Contact Info) Description 01/17/2023 Telephone Urology Jerri Steele [address] [address] [place] [address] Chris Royal MD [address] [place] [address] [place] [id number] Test Results Allergies Active Allergy Reactions Criticality Noted Date Comments Penicillins Edema airway,Rash High 03/10/2012 Last dose age 14 Pollen 01/17/2021 Ragweed 11/05/2022 documented as of this encounter (statuses as of 01/21/2023) Medications Medication Sig Dispensed Refills Start Date [...] as of this encounter (statuses as of 01/21/2023) Active Problems Problem Noted Date Diagnosed Date Postmenopausal atrophic vaginitis 09/04/2022 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 Chronic kidney disease, stage 3b 04/30/2022 Overview: Per CKD protocol Urgency of urination 01/17/2021 Malignant neoplasm of dome of urinary bladder Hydronephrosis, left 11/23/2020 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 Other neutropenia 11/14/2018 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 Chronic neutropenia 01/06/2018 documented as of this encounter (statuses as of 01/21/2023) Resolved Problems Problem Noted Date Diagnosed Date Resolved Date Chronic kidney disease, stage 3a 05/29/2021 05/02/2022 Overview: Per CKD protocol Fever 09/13/2015 10/21/2017 Kidney stone on left side Inguinal hernia 10/21/2017 Overview: Surgical repair Neutropenia 10/21/2017 documented as of this encounter (statuses as of 01/21/2023) Immunizations Name Administration Dates Next Due COVID-19 mRNA, LNP-s, No Pre serve, 2-Dose Series ([employer]) 01/05/2021,05/07/2020,04/16/2020 COVID-19, LNP-s, No Preserve , Jasbir-sucrose, [...] Telephone Encounter - Hazel Mcclain LPN - 01/18/2023 1:30 PM EST Spoke with pt, aware of below. Prefers to go to OR, will keep Saturday's appointment as office visit to discuss further and have H&P completed Ugnnar, please change Saturday's appointment to office visit. Thank you Ramona * Telephone Encounter - Kalli Fischer OSA - 01/17/2023 4:29 PM EST Hello- The radiologist discovered an unexpected or indeterminate finding on Linsey Estrella ([id number]) and asks that you review the following report. Study Type:CT ABD/PELVIS W WO IV CONTRAST - WO ORAL CONT Date of Study: 01/16/2023 IMPRESSION 1. Increase in size of the [...] no obvious enhancing lesion. No ureteral obstruction. Please respond to this encounter to acknowledge receipt of this message and take responsibility to ensure this report is reviewed. Thank you, DOMINIQUE Hernandez Client Service [facility] documented in this encounter Plan of Treatment Upcoming Encounters Date Type Department Care Team (Late st Contact Info) Description 01/21/2023 1:00 PM EST Procedure Only [facility], [facility] [place] [address] Chris Royal MD [address] [facility] [address] [place] [address] 01/23/2023 1:15 PM EST Office Visit Hematology/Oncology [facility] [address] [facility] [place] [address] Aguilar Lizarraga MD [address] [facility] [place] [address] 06/24/2023 10:40 AM EDT Office Visit Nephrology, [facility] [address] [facility] [place] [address] Demetrius Sherman MD [address] [facility] [place] [address] 11/12/2023 9:20 AM EDT Office Visit General Internal Medicine [facility] [address] [facility] [place] [address] Nichole Lizarraga MD [address] [facility] [place] [address] Health Maintenance Due Date Last Done Comments Zoster Vaccines (1 of 2) 01/23/1971 Colonoscopy 01/23/1997 Fecal Occult Blood Test 01/23/1997 Sigmoidoscopy 01/23/1997 DTaP,Tdap,and Td Vaccines (2 - Td or Tdap) 09/02/2022 09/02/2012 Albumin/Creatinine Ratio 03/13/2023 03/13/2022, 10/20 CKD PHOS USE SMARTSET 79548 03/13/2023 03/13/2022, 0 11/09/2021 Cologuard 06/09/2023 06/08/2020, 10/25/2016 Colorectal Cancer Screening 06/09/2023 GFR 07/16/2023 01/15/2023, 07/0 07/2022, 04/12/2022, Additional history exists Mammogram 10/12/2023 10/11/2022, 05/0 04/2021, 01/18/2020, Additional history exists Depression Screening 11/07/2023 11/06/2022 CKD HGB USE SMARTSET 61145 12/14/202312/13, 12/13/2022, 11/13/2022, Additional history exists DXA [...] and were consensually agreed upon. Care Teams Receiving Inspector Relationship Specialty Start Date End Date Nichole Lizarraga MD [address] [facility] [place] [address] PCP - General Internal Medicine 03/10/12 documented as of this encounter
--- OUTSIDE RECORDS SUMMARY | 2023-06-30 23:01 | External Medical Summary | Summary of Care ---
Author Name Unknown Organization [facility] Address [address] [facility] [place] [address] Phone [phone] Care Team Providers Care Applied Computer Science Professor Name Role Phone Nichole Lizarraga MD Primary Care Provider + Reason for Visit * Reason Onset Date Comments Test Results 01/17/2023 Encounter Details Date Type Department Care Team (Late st Contact Info) Description 01/17/2023 Telephone Urology Jerri Steele [address] [place] [address] [place] [address] Chris Royal MD [address] [place] [address] [place] [id number] Test Results Allergies Active Allergy Reactions Criticality Noted Date Comments Penicillins Edema airway,Rash High 03/10/2012 Last dose age 14 Pollen 01/17/2021 Ragweed 11/05/2022 documented as of this encounter (statuses as of 01/18/2023) Medications Medication Sig Dispensed Refills Start Date [...] as of this encounter (statuses as of 01/18/2023) Active Problems Problem Noted Date Diagnosed Date Postmenopausal atrophic vaginitis 09/04/2022 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 Chronic kidney disease, stage 3b 04/30/2022 Overview: Per CKD protocol Urgency of urination 01/17/2021 Malignant neoplasm of dome of urinary bladder Hydronephrosis, left 11/23/2020 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 Other neutropenia 11/14/2018 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 Chronic neutropenia 01/06/2018 documented as of this encounter (statuses as of 01/18/2023) Resolved Problems Problem Noted Date Diagnosed Date Resolved Date Chronic kidney disease, stage 3a 05/29/2021 05/02/2022 Overview: Per CKD protocol Fever 09/13/2015 10/21/2017 Kidney stone on left side Inguinal hernia 10/21/2017 Overview: Surgical repair Neutropenia 10/21/2017 documented as of this encounter (statuses as of 01/18/2023) Immunizations Name Administration Dates Next Due COVID-19 mRNA, LNP-s, No Pre serve, 2-Dose Series ([employer]) 01/05/2021,05/07/2020,04/16/2020 COVID-19, LNP-s, No Preserve , Jasbir-sucrose, [...] to discuss further and have H&P completed Gunnar, please change Saturday's appointment to office visit. Thank you Ramona * Telephone Encounter - Kalli Fischer OSA - 01/17/2023 4:29 PM EST Hello- The radiologist discovered an unexpected or indeterminate finding on Linsey Estrella ([id number]) and asks that you review the following [...] reviewed. Thank you, DOMINIQUE Hernandez Client Service [facility] documented in this encounter Plan of Treatment Upcoming Encounters Date Type Department Care Team (Late st Contact Info) Description 01/21/2023 1:00 PM EST Procedure Only [facility], [facility] [place] [address] Chris Royal MD [address] [facility] [address] [place] [address] 01/23/2023 1:15 PM EST Office Visit Hematology/Oncology [facility] [address] [facility] [place] [address] Aguilar Lizarraga MD [address] [facility] [place] [address] 06/24/2023 10:40 AM EDT Office Visit Nephrology, [facility] [address] [facility] [place] [address] Demetrius Sherman MD [address] [facility] [place] [address] 11/12/2023 9:20 AM EDT Office Visit General Internal Medicine [facility] [address] [facility] [place] [address] Nichole Lizarraga MD [address] [facility] [place] [address] Health Maintenance Due Date Last Done Comments Zoster Vaccines (1 of 2) 01/23/1971 Colonoscopy 01/23/1997 Fecal Occult Blood Test 01/23/1997 Sigmoidoscopy 01/23/1997 DTaP,Tdap,and Td Vaccines (2 - Td or Tdap) 09/02/2022 09/02/2012 Albumin/Creatinine Ratio 03/13/2023 03/13/2022, 10/20 CKD PHOS USE SMARTSET [id number] 03/13/2023 03/13/2022, 0 11/09/2021 Cologuard 06/09/2023 06/08/2020, 10/25/2016 Colorectal Cancer Screening 06/09/2023 GFR 07/16/2023 01/15/2023, 07/0 07/2022, 04/12/2022, Additional history exists Mammogram 10/12/2023 10/11/2022, 05/0 04/2021, 01/18/2020, Additional history exists Depression Screening 11/07/2023 11/06/2022 CKD HGB USE SMARTSET 10150 12/14/202312/13, 12/13/2022, 11/13/2022, Additional history exists DXA [...] and were consensually agreed upon. Care Teams Applied Computer Science Professor Relationship Specialty Start Date End Date Nichole Lizarraga MD [address] [facility] [place] [address] PCP - General Internal Medicine 03/10/12 documented as of this encounter
--- OUTSIDE RECORDS SUMMARY | 2023-06-30 23:01 | External Medical Summary | Summary of Care ---
Author Name Unknown Organization [facility] Address [address] [facility] [place] [address] Phone [phone] Care Team Providers Care Biological Engineer Name Role Phone Nichole Lizarraga MD Primary Care Provider + Reason for Visit * Reason Onset Date Comments Advice 01/14/2023 Tick bite Encounter Details Date Type Department Care Team (Late st Contact Info) Description 01/14/2023 Telephone General Internal Medicine [facility] [address] [place] [address] Nichole Lizarraga MD [address] [place] [address] Advice (Tick bite) Allergies Active Allergy Reactions Criticality Noted Date [...] mRNA, LNP-s, No Pre serve, 2-Dose Series (Yi De) 01/05/2021,05/07/2020,04/16/2020 COVID-19, LNP-s, No Preserve , Jasbir-sucrose, [...] Miscellaneous Notes * Telephone Encounter - Ambika Anaya LPN - 01/15/2023 8:37 AM EST Patient is aware and verbalizes understanding. * Telephone Encounter - Shell Mac CMA - 01/15/2023 8:05 AM EST Called, left message for patient to return call. * Telephone Encounter - Nichole Lizarraga MD - 01/15/2023 6:47 AM EST Noted. Script sent for doxy. Watch for any more symptoms an dcall if needed. Please inform. * Telephone Encounter - Ambika Anaya LPN - 01/14/2023 9:56 AM EST Patient called to c/o of tick bite. Patient found deer tick embedded in her back this morning. She is unsure how long the tick has beenthere for and is requesting Doxycycline prophylaxis to be sent to her selected pharmacy. Symptoms include: Tick bite occurred on 01/14/2023 Tick is not still attached. Has the tick been completely removed: Yes Patient was bitten while at home in [facility]. Tick thought to be attached for Unsure hours. Tick thought to be deer tick. History of Lyme Disease? No Presence of a rash: No Other associated symptoms: None Symptom onset: NA Patient Instruction: 1. If the tick has been completely removed, no appointment needed. 2. If the tick is still embedded, try to remove it by grasping it as close to the skin as possible w/ tweezers and pulling gently until it lets go or its mouth breaks off. 3. The longer the tick stays embedded, the greater the chance to transmit infection. 4. The bite itself will be red and sore for a few days or more. That is to be expected. Call back for an appointment if: 1. Redness at the bite site persists and is still sore in a week. 2. The development of any flu-like symptoms over the next month, (such as fatigue, achy, feverish or generally ill). 3. If a rash that looks like a bullseye develops over the next month. 4. Call with any further questions or concerns. Verify pharmacy. Route message to provider if tick is attached longer than 36 hours but less than 72 hours. If tick is attached for over 72 hours schedule an appointment. Any symptoms require an appointment. * Telephone Encounter - Liliane Montenegro OSA - 01/14/2023 9:52 AM EST Reason for patient's call: tick bite Caller was transferred to Ambika at the nurse line. documented in this encounter Plan of Treatment Upcoming Encounters Date Type Department Care Team (Late st Contact Info) Description 01/15/2023 1:00 PM EST Procedure Only Urology, [facility] [address] [facility] [place] [address] Chris Royal MD 27 [facility] [address] [place] [address] 01/23/2023 1:15 PM EST Office Visit Hematology/Oncology [facility] [place] [address] [place] [address] Aguilar Lizarraga MD [address] [place] [address] 06/24/2023 10:40 AM EDT Office Visit Nephrology, [facility] [address] [place], [place] [address] Demetrius Sherman MD 200 [place] [address] 11/12/2023 9:20 AM EDT Office Visit General Internal Medicine [facility] [place] [address] [place], [place] [address] Nichole Lizarraga MD 200 [facility] [place], [place] [address] Health Maintenance Due Date Last Done Comments Zoster Vaccines (1 of 2) 01/23/1971 Colonoscopy 01/23/1997 Fecal Occult Blood Test 01/23/1997 Sigmoidoscopy 01/23/1997 DTaP,Tdap,and Td Vaccines (2 - Td or Tdap) 09/02/2022 09/02/2012 GFR 02/23/2023 08/23/2022, 03/22, 01/31/2022, Additional history exists Albumin/Creatinine Ratio 03/13/2023 03/13/2022, 10/20 CKD PHOS USE SMARTSET 65869 03/13/2023 03/13/2022, 0 11/09/2021 Cologuard 06/09/2023 06/08/2020, 10/25/2016 Colorectal Cancer Screening 06/09/2023 Mammogram 10/12/2023 10/11/2022, 05/0 04/2021, 01/18/2020, Additional history exists Depression Screening 11/07/2023 11/06/2022 CKD HGB USE SMARTSET 34579 12/14/202312/13, 12/13/2022, 11/13/2022, Additional history exists DXA [...] as of this encounter Visit Diagnoses Diagnosis Tick bite, unspecified site, initial encounter- Primary documented in this encounter Advance Directives [...] and were consensually agreed upon. Care Teams Biological Engineer Relationship Specialty Start Date End Date Nichole Lizarraga MD 200 [place] [address] PCP - General Internal Medicine 03/10/12 documented as of this encounter
--- OUTSIDE RECORDS SUMMARY | 2023-06-30 23:01 | External Medical Summary | Summary of Care ---
Author Name Unknown Organization [facility] Address [address] [facility] [place] [address] Phone [phone] Care Team Providers Care Solution Advisor Name Role Phone Nichole Lizarraga MD Primary Care Provider + Reason for Visit * Reason Comments Outpatient Testing Encounter Details Date Type Department Care Team (Late st Contact Info) Description 01/15/2023 2:00 PM EST [facility] [phone] [facility] 132 [facility] [address] 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); Ureteral tumor Allergies Active Allergy Reactions Criticality [...] mRNA, LNP-s, No Pre serve, 2-Dose Series (INCHRON) 01/05/2021,05/07/2020,04/16/2020 COVID-19, LNP-s, No Preserve , Jasbir-sucrose, Ages 12+ (INCHRON) 09/06/2021 Covid-19, Mrna, Lnp-s, Pf, B ivalent, [...] 01/21/2023 11:15 AM EST Procedure Only Urology, [facility] 132 [facility] [place] [address] Chris Royal MD 27 [facility] [address] [place] [address] 01/23/2023 1:15 PM EST Office Visit Hematology/Oncology [facility] [address] [place] [address] Agiular Lizarraga MD [address] [place] [address] 06/24/2023 10:40 AM EDT Office Visit Nephrology, [facility] [address] [place] [address] Demetrius Sherman MD [address] [place] [address] 11/12/2023 9:20 AM EDT Office Visit General Internal Medicine [facility] [address] [place] [address] Nichole Lizarraga MD [address] [facility] [place] [address] Pending Results Name Type Priority Associated Diagnoses Date /Time CREATININE Lab Routine 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 01/15/2023 2:04 PM EST Health Maintenance Due Date Last Done Comments Zoster Vaccines (1 of 2) 01/23/1971 Colonoscopy 01/23/1997 Fecal Occult Blood Test 01/23/1997 Sigmoidoscopy 01/23/1997 DTaP,Tdap,and Td Vaccines (2 - Td or Tdap) 09/02/2022 09/02/2012 GFR 02/23/2023 08/23/2022, 03/22, 01/31/2022, Additional history exists Albumin/Creatinine Ratio 03/13/2023 03/13/2022, 10/20 CKD PHOS USE SMARTSET 37733 03/13/2023 03/13/2022, 0 11/09/2021 Cologuard 06/09/2023 06/08/2020, 10/25/2016 Colorectal Cancer Screening 06/09/2023 Mammogram 10/12/2023 10/11/2022, 05/0 04/2021, 01/18/2020, Additional history exists Depression Screening 11/07/2023 11/06/2022 CKD HGB USE SMARTSET 95471 12/14/202312/13, 12/13/2022, 11/13/2022, Additional history exists DXA [...] were consensually agreed upon. Care Teams Solution Advisor Relationship Specialty Start Date End Date Nichole Lizarraga MD 200 [facility] [place], [place] [address] PCP - General Internal Medicine 03/10/12 documented as of this encounter
--- OUTSIDE RECORDS SUMMARY | 2023-06-30 23:01 | External Medical Summary | Summary of Care ---
Author Name Unknown Organization [facility] Address [address] [facility] [address] Phone [phone] Care Team Providers Care Development Professional Name Role Phone Nichole Lizarraga MD Primary Care Provider + Reason for Visit * Reason Comments Follow Up HISTORY and PHYSICAL Encounter Details Date Type Department Care Team (Latest Contact Info) Description 01/21/2023 1:00 PM EST Procedure Only Urology, [facility] 132 [facility] [place] [address] Chris Royal MD 27 [facility] [address] [place] [address] Abnormal cystoscopy* Allergies Active Allergy Reactions Criticality Noted Date [...] mRNA, LNP-s, No Pre serve, 2-Dose Series (Xdynia) 01/05/2021,05/07/2020,04/16/2020 COVID-19, LNP-s, No Preserve , Jasbir-sucrose, [...] Sign Reading Time Taken Comments Blood Pressure - - Pulse - - Temperature 36.6 C (97.9 F) 01/21/2023 1:05 PM ES T Respiratory Rate - - Oxygen Saturation - - Inhaled Oxygen Concentration - - Weight 55.9 kg (123 lb 4.8 oz) 01/21/2023 1:05 P M EST Height - - Body Mass Index 21.33 11/06/2022 9:26 AM EDT documented in this encounter Progress Notes * Chris Royal MD - 01/21/2023 1:00 PM EST [phone] PCP: NICHOLE LIZARRAGA [address] [place] [address] Linsey Estrella is a 72 year [...] MD at OR [facility] CYSTOSCOPY/TREAT MINOR LESION(S) N/A 06/05/2021 CYSTOURETHROSCOPY WITH FULGURATION MINOR BLADDER TUMOR performed by Chris Royal MD at OR [facility] DENTAL SURGERY PROCEDURE NEC INCISION OF WINDPIPE, PLANNED Left 02/04/2017 TRACHEOSTOMY PLANNED performed by Nick Singh DO at OR [facility] INFORMATION 02/04/2017 never had a trach INFORMATION 1989 kidney stone removal LAPARO REMOVE K/URETER Left 02/01/2021 LAPAROSCOPIC NEPHRECTOMY TOTAL URETERECTOMY performed by Chris Royal MD at OR [facility] LARYNGOSCOPY, VOCAL CORD EXCISION/STRIPPING Left 02/04/2017 LARYNGOSCOPY DIRECT STRIPPING VOCAL CORD WITH MICROSCOPE performed by Nick Singh DO at OR [facility] REPAIR INITIAL INGUINAL HERNIA REDUCIBLE AGE 7 [...] plan. Chris Royal MD 12:20 PM 01/21/2023 documented in this encounter Nursing Notes * Hazel Mcclain LPN - 01/21/2023 1:47 PM EST Patient scheduled at [facility] for TURBT with Dr Chris Royal. Date of Surgery: 02/04/2023 Medications reviewed. Aware to d/c multivitamin 1 week prior EKG: obtained CXR: ordered, to be done today Labs: ordered UAC&S: ordered, to be done 1 week prior to surgery Post op appts needed: 5 day TOV, 3 week postop Permit signed. Patient verbalizes understanding of pre- and post op instructions. Written instructions given for review at later date. Hazel Mcclani LPN 01/21/2023 * Yeimi Valentin LPN - 01/21/2023 1:06 PM EST Pt presents in office for CT results, H&P No new urological concerns documented in this encounter Plan of Treatment Upcoming Encounters Date Type Department Care Team (Latest Contact Info) Description 01/23/2023 1:15 PM EST Office Visit Hematology/Oncolog y [facility] [address] [place] [address] Aguilar Lizarraga MD [address] [place] [address] 02/04/2023 8:30 AM EST Hospital Encounter [facility], [facility] [address] [place] [phone] Chris Royal MD [address] [place] [address] [place] [address] 02/04/2023 8:30 AM EST - 02/04/2023 9:42 AM EST Surgery OR [facility], Operating Room [facility] [address] [place] [address] Chris Royal MD [address] [place] [address] [place] [address] CYSTOURETHROSCOPY WITH FULGURATION SMALL BLADDER TUMOR 02/07/2023 11:00 AM EST Nurse Only Urology, [facility] [place] [address] [place] [address] Nurse [facility] [address] [place] [address] 02/26/2023 11:45 AM EST Office Visit Urology, [facility] [address] [place] [address] Chris Royal MD [address] [place] [address] [place] [address] 06/24/2023 10:40 AM EDT Office Visit Nephrology, [facility] 200 [facility] [address] Demetrius Sherman MD 200 [facility] [place] [address] 11/12/2023 9:20 AM EDT Office Visit General Internal Medicine [facility] 200 [place] [address] Nichole Lizarraga MD 200 [facility] [place] [address] Pending Results Name Type Priority Associated Diagnoses Date /Time XR CHEST 2 VIEWS Medical Imaging Routine Abnormal cystoscopy 01/21/2023 2:00 PM EST Scheduled Orders Name Type Priority Associated Diagnoses Orde r Schedule BASIC METABOLIC PANEL Lab Routine Abnormal cystoscopy Expected: 01/21/2023, Expires: 01/22/2024 CULTURE, URINE, QUANTITATIVE Lab Routine Abnormal cystoscopy Expected: 01/28/2023, Expires: 01/22/2024 Scheduled Procedures Name Priority Associated Diagnoses Date/Ti ak CYSTOURETHROSCOPY WITH FULGURATION SMALL BLADDER TUMOR Abnormal cystoscopy 02/04/2023 8:30 AM EST Health Maintenance Due Date Last Done Comments Zoster Vaccines (1 of 2) 01/23/1971 Colonoscopy 01/23/1997 Fecal Occult Blood Test 01/23/1997 Sigmoidoscopy 01/23/1997 DTaP,Tdap,and Td Vaccines (2 - Td or Tdap) 09/02/2022 09/02/2012 Albumin/Creatinine Ratio 03/13/2023 03/13/2022, 10/20 CKD PHOS USE SMARTSET 80844 03/13/2023 03/13/2022, 0 11/09/2021 Cologuard 06/09/2023 06/08/2020, 10/25/2016 Colorectal Cancer Screening 06/09/2023 GFR 07/16/2023 01/15/2023, 07/0 07/2022, 04/12/2022, Additional history exists Mammogram 10/12/2023 10/11/2022, 05/0 04/2021, 01/18/2020, Additional history exists Depression Screening 11/07/2023 11/06/2022 CKD HGB USE SMARTSET 74866 12/14/202312/13, 12/13/2022, 11/13/2022, Additional history exists DXA [...] filedocumented as of this encounter Results * EKG (01/21/2023 1:44 PM EST) 01/21/2023 1:44 PM EST Narrative Procedure Note Leonidas Shine DO - 01/21/2023 1:44 PM EST REASON FOR STUDY: preop CONCLUSIONS: Normal sinus rhythm Normal ECG No previous ECGs available Ventricular Rate: 64 Atrial Rate: 64 VA Interval: 138 QRS Duration: 64 QT/QTc: 402/414 ms P-R-T [place]: 70 : 73 : 65 degrees Chris Royal MD EKG [facility] documented in this encounter Visit Diagnoses Diagnosis Abnormal cystoscopy- Primary Other nonspecific abnormal finding Abnormal cystoscopy Other nonspecific abnormal finding Abnormal cystoscopy Other nonspecific abnormal finding documented [...] and were consensually agreed upon. Care Teams Development Professional Relationship Specialty Start Date End Date Nichole Lizarraga MD 200 [facility] [address] PCP - General Internal Medicine 03/10/12 documented as of this encounter
[2023-06-30] MEDS: SODIUM CHLORIDE 0.9% 1,000 ML IV SCH (23:06)
[2023-06-30] MEDS: CEFEPIME 2,000 MG/20 ML VIAL IV STA (23:06)
[2023-06-30 23:31] LABS: Albumin Level 1.7 gm/dl (3.4-5.0); BUN Creatinine Ratio 28.4 (10-20); Bilirubin Direct 0.3 mg/dl (0-0.2); Bilirubin,Total 0.7 mg/dl (0.2-1.0); Calcium 7.9 mg/dl (8.6-10.3); Creatinine Clr Calc Pharmacy 16.5 ml/min; Est GFR (Non-African American) 18.1 ml/min; Magnesium 1.9 mg/dl (1.7-2.4); Potassium 3.1 mmol/L (3.5-5.1); Total Protein 4.9 gm/dl (6.0-8.3)
[2023-06-30 23:48] LABS: Troponin I High Sensitivity 58.4 pg/ml (0-14)
[2023-06-30] MEDS ORDERED: VANCOMYCIN CONSULT ACTIVE PRN (23:49)
--- NOTE | 2023-07-01 00:01 | CT Scan Report ---
Exam(s): CT HEAD Without Contrast EXAM: CT Head Without Intravenous Contrast CLINICAL HISTORY: Reason for exam: bladder CA, AMS, fever. TECHNIQUE: Axial computed tomography images of the head/brain without intravenous contrast. Automated exposure control was utilized for the study. A dose lowering technique was utilized adhering to the principles of ALARA. COMPARISON: No relevant prior studies available. FINDINGS: Brain: Unremarkable. No hemorrhage. No significant white matter disease. No edema. Ventricles: Unremarkable. No ventriculomegaly. Bones/joints: Unremarkable. No acute fracture. Soft tissues: Unremarkable. Sinuses: Findings concerning for acute maxillary sinusitis with air- fluid levels. Mastoid air cells: Unremarkable as visualized. No mastoid effusion. IMPRESSION: No evidence of acute intracranial pathology. Findings concerning acute maxillary sinusitis with air-fluid levels. Electronically signed by: Elisa Willis MD 07/01/23 00:00 AM
[2023-07-01] MEDS: VANCOMYCIN HCL 1,000 MG in SODIUM CHLORIDE 0.9% 500 ML IV ONE (00:22)
[2023-07-01] MEDS: LACTATED RINGER'S 500 ML IV ONE (00:23)
[2023-07-01 00:32] LABS: ALC (manual) 0.42 K/uL (1.2-3.4); ANC (manual) 0.04 K/uL (1.4-6.5); Eosinophils # (manual) 0.06 K/uL (0-0.50); Eosinophils % (manual) 10 %; Hematocrit (blood only) 21.5 % (37.0-47.0); Lymphocytes # (manual) 0.42 K/uL (1.2-3.4); Lymphocytes % (manual) 73 %; Mean Corpuscular Hemoglobin 26.6 pg (25.0-34.0); Mean Corpuscular Hgb Conc 32.6 g/dL (32.0-36.0); Mean Corpuscular Volume 81.7 fL (80.0-100.0); Mean Platelet Volume 10.4 fL (9.4-12.4); Monocytes # (manual) 0.06 K/uL (0.11-0.59); Monocytes % (manual) 10 %; Neutrophils # (manual) 0.04 K/uL (1.40-6.50); Neutrophils % (manual) 7 %; Platelet Count 207 K/uL (130-400); RBC Morphology Unremarkable; RDW Coefficient of Variation 18.7 % (11.5-14.5); RDW Standard Deviation 56.5 fL (36.4-46.3); Red Blood Count 2.63 M/uL (4.20-5.40); White Blood Count 0.57 K/ul (4.8-10.8)
--- NOTE | 2023-07-01 00:51 | CT Scan Report ---
Exam(s): CT ABDOMEN + PELVIS Without Contrast EXAM: CT Abdomen and Pelvis Without Intravenous Contrast CLINICAL HISTORY: Reason for exam: sepsis, ams. TECHNIQUE: Axial computed tomography images of the abdomen and pelvis without intravenous contrast. CTDI is 12.15 mGy and DLP is 550.3 mGy-cm. Automated exposure control was utilized for the study. A dose lowering technique was utilized adhering to the principles of ALARA. COMPARISON: Ultrasound from January 23, 2018 FINDINGS: Lung bases: See below. Pleural space: Small, 1 cm in left pleural effusion with mild bibasilar atelectasis. Mild to moderate cardiomegaly is present. ABDOMEN: Liver: Severe hepatomegaly measuring 26.6 cm craniocaudad. No focal liver lesion is seen. Gallbladder and bile ducts: Unremarkable. No calcified stones. No ductal dilation. Pancreas: Unremarkable. No ductal dilation. Spleen: Unremarkable. No splenomegaly. Adrenals: Unremarkable. No mass. Kidneys and ureters: The left kidney is absent. The right kidney appears within normal limits. No obstructing stones. No hydronephrosis. Stomach and bowel: The liver may compress the right lower quadrant ileostomy. There are scattered gas fluid levels within nondilated small bowel suggesting ileus. There is diverticulosis of the sigmoid colon without evidence of acute diverticulitis. PELVIS: Appendix: No findings to suggest acute appendicitis. Bladder: Unremarkable. No stones. Reproductive: Unremarkable as visualized. ABDOMEN and PELVIS: Intraperitoneal space: Unremarkable. No free air. No significant fluid collection. Bones/joints: There is an ill-defined 3.5 cm low-density in the left side of the pelvis located medial to the quadrilateral plate of the left iliac bone. Mild to moderate degenerative changes throughout the spine. No acute fracture, subluxation, or spinal stenosis. Soft tissues: Unremarkable. Vasculature: Unremarkable. No abdominal aortic aneurysm. Lymph nodes: Unremarkable. No enlarged lymph nodes. IMPRESSION: 1. There is an ill-defined 3.5 cm low-density in the left side of the pelvis located medial to the quadrilateral plate of the left iliac bone. This is nonspecific. Questionable abscess versus mass or lymphadenopathy. This is not well evaluated without the use of IV contrast. 2. Severe hepatomegaly measuring 26.6 cm craniocaudad. No focal liver lesion is seen. 3. The liver may compress the right lower quadrant ileostomy. There are scattered gas fluid levels within nondilated small bowel suggesting ileus. There is diverticulosis of the sigmoid colon without evidence of acute diverticulitis. 4. Small, 1 cm in left pleural effusion with mild bibasilar atelectasis. Mild to moderate cardiomegaly is present. Electronically signed by: Dagoberto Elliott MD 07/01/23 00:50 AM
[2023-07-01 01:24] LABS: Appearance Urine Turbid (Clear); Bacteria Urine Automated 4+ (None Seen); Bilirubin Urine Negative (Negative); Blood Urine Negative (Negative); Color Urine Yellow; Epithelial Cell Urine Auto 0-2 /hpf (0-2); Glucose Urine UA Negative (Negative); Ketones Urine Negative (Negative); Leukocyte Esterase Urine Negative (Negative); Nitrite Urine Negative (Negative); Protein Urine 2+ (Negative); RBC Urine Automated 0-2 /hpf (0-2); Specific Gravity Urine 1.013 (1.000-1.030); Urobilinogen Urine Negative (Negative)
[2023-07-01 02:08] LABS: Adenovirus PCR Not Detected (NotDetected); Bordetella parapertussis PCR Not Detected (NotDetected); Bordetella pertussis PCR Not Detected (NotDetected); Chlamydia pneumoniae PCR Not Detected (NotDetected); Coronavirus 229E PCR Not Detected (NotDetected); Coronavirus CoV-2 (COVID19)PCR Not Detected (NotDetected); Coronavirus HKU1 PCR Not Detected (NotDetected); Coronavirus NL63 PCR Not Detected (NotDetected); Coronavirus OC43PCR Not Detected (NotDetected); Human Metapneumovirus PCR Not Detected (NotDetected); Influenza A PCR Not Detected (NotDetected); Influenza B PCR Not Detected (NotDetected); Mycoplasma pneumoniae PCR Not Detected (NotDetected); Parainfluenza Virus 1 PCR Not Detected (NotDetected); Parainfluenza Virus 2 PCR Not Detected (NotDetected); Parainfluenza Virus 3 PCR Not Detected (NotDetected); Parainfluenza Virus 4 PCR Not Detected (NotDetected); Respiratory Syncytial VirusPCR Not Detected (NotDetected); Rhinovirus/Enterovirus PCR Not Detected (NotDetected)
--- NOTE | 2023-07-01 02:39 | History & Physical Report ---
Date of Service July 01, 2023 Assessment & Plan (1) AMS (altered mental status): Plan: 73-year-old female with past medically significant for invasive high-grade urothelial carcinoma initial diagnosed 2020 involving the left ureter s/p left nephroureterectomy on February 01, 2021 and s/p BCG in 2021. In January 2023 diagnosed with high-grade invasive urothelial carcinoma with sarcomatoid features and focal squamous differentiation with lymphovascular invasion and muscularis propria. 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 Was transferred to [place]. Was requiring pressors. In [place] seen by urology. 14 Finnish red rubber catheter was intubated in the urostomy and 10 mL of cloudy urine obtained and sent for culture and separately ureteral stent was aspirated. Prior to aspiration the stent was not draining and after the aspiration stent started to drain spontaneously. It was thought that stent was not draining appropriately due to mucus and sediments. Cultures grew pansensitive E. coli and Enterococcus sensitive to ampicillin and Vanco. Patient received antibiotic Ancef Unasyn and Zosyn and was thought she tolerated penicillin okay. She was discharged on Augmentin. She was in [place] from May 26, 2023 to May 30, 2023.. As per since she came home , she again started having fevers when she was about to complete antibiotic course. She is taking Tylenol regularly for fevers per .. And last 1 week she developed sore mouth. She is using Magic swizzle. As per the last 2 days she is not eating anything because of severe soreness in the mouth. And because of sore mouth and poor oral intake and ongoing fever and lately patient getting somewhat confused got worried about developing sepsis and brought to the ER today. Patient somewhat slow to respond. Talking in low voices. Somewhat difficult to understand. Can tell her name. Knows that she is in the hospital. Knows her date of . Could not tell current dates. As per generally she can tell current dates. Patient denies any headache. Denies any back pain. Denies chest pain. Denies shortness of breath. No runny nose. Has sore throat. No cough. No abdominal pain. She is having some loose stools. Ambulates without support. Feeling weak. Hemodynamics okay in the ER. Lactic acid okay. She was also diagnosed with COVID on June 13, 2023. Altered mental status Possible sepsis UTI Recently in May had septic shock and urosepsis and was in [place] requiring pressors. At that time ureteral stent was blocked which was cleared with aspiration by urology. Today CT scan no hydronephrosis Questionable collection on the left pelvis region-need to reassess Er gave IV cefepime and Vanco which will be continued IV fluids Follow the cultures Blood pressure is okay and currently lactic acid okay Close monitor in telemetry Consult urology for recurrent UTI and recent complication Diarrhea had an episode of diarrhea in ER. C diff came back negative will monitor. Sore mouth Continue Magic swizzle May need GI/ENT consult Full liquid diet for now Nutrition band and cuff cutter consult. Neutropenia Has chronic neutropenia since 2012 Currently on Neupogen shots 4 times a week Follows with heme-onc Can discuss with heme-onc Dr. Lizarraga Neutropenic cautions Anemia Hemoglobin 7 Will check stool for Hemoccult Follows labs weekly as per and recently had a PRBC transfusion Blood consent obtained JUANITO on CKD stage III Solitary kidney Recent creatinine 1.7 today creatinine 2.5 Avoid nephrotoxic agents Getting fluids Follow repeat labs. Invasive high-grade urothelial carcinoma initially diagnosed in 2020 involving the left ureter./p left nephroureterectomy on February 01, 2021 and s/p BCG in 2021. In January 2023 diagnosed with high-grade invasive urothelial carcinoma with sarcomatoid features and focal squamous differentiation with lymphovascular invasion and muscularis propria. 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 Will hold if Hemoccult is positive Disposition Telemetry Full code as per discussion with the History of Present Illness Chief Complaint: Altered mental status, UTI and neutropenia Primary Care Provider: Nichole Lizarraga MD 73-year-old female with past medically significant for invasive high-grade urothelial carcinoma initial diagnosed 2020 involving the left ureter s/p left nephroureterectomy on February 01, 2021 and s/p BCG in 2021. In January 2023 diagnosed with high-grade invasive urothelial carcinoma with sarcomatoid features and focal squamous differentiation with lymphovascular invasion and muscularis propria. 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 Was transferred to [place]. Was requiring pressors. In [place] seen by urology. 14 Finnish red rubber catheter was intubated in the urostomy and 10 mL of cloudy urine obtained and sent for culture and separately ureteral stent was aspirated. Prior to aspiration the stent was not draining and after the aspiration stent started to drain spontaneously. It was thought that stent was not draining appropriately due to mucus and sediments. Cultures grew pansensitive E. coli and Enterococcus sensitive to ampicillin and Vanco. Patient received antibiotic Ancef Unasyn and Zosyn and was thought she tolerated penicillin okay. She was discharged on Augmentin. She was in [place] from May 26, 2023 to May 30, 2023.. As per since she came home , she again started having fevers when she was about to complete antibiotic course. She is taking Tylenol regularly for fevers per .. And last 1 week she developed sore mouth. She is using Magic swizzle. As per the last 2 day s she is not eating anything because of severe soreness in the mouth. And because of sore mouth and poor oral intake and ongoing fever and lately patient getting somewhat confused got worried about developing sepsis and brought to the ER today. Patient somewhat slow to respond. Talking in low voices. Somewhat difficult to understand. Can tell her name. Knows that she is in the hospital. Knows her date of . Could not tell current dates. As per generally she can tell current dates. Patient denies any headache. Denies any back pain. Denies chest pain. Denies shortness of breath. No runny nose. Has sore throat. No cough. No abdominal pain. She is having some loose stools. Ambulates without support. Feeling weak. Hemodynamics okay in the ER. Lactic acid okay. She was also diagnosed with COVID on June 13, 2023. Past medical history as mentioned above. Past surgical history. Cystoscopy. Dental surgery. Laparoscopic left nephrectomy total ureterectomy 02/01/2021. Laryngoscopy direct stripping of vocal cord. Radical abdominal hysterectomy May 08, 2023. Cystectomy complete with ureteroileal conduct with bilateral pelvic lymphadenectomy on May 08, 2023. Repair of inguinal hernia in 1999. Social history. . No smoking. 2 standard drinks of alcohol per week. No drug use. Family history. Mother had heart disorder. Hypertension. Father had liver cancer. Pancreatic cancer. Maternal grandmother had diabetes. Stroke. Maternal grandfather had a heart attack. Paternal grandfather had cancer. Paternal grandmother had stroke. Allergies Allergy/AdvReac Type Severity Reaction Status Date / Time Penicillins Allergy Intermediate Airway Verified 07/01/23 00:29 edema, rash pollen extracts Allergy Unknown Unknown Verified 07/01/23 00:29 Home Medications Medication Instructions Recorded Confirmed Type loratadine 10 mg tablet (Claritin) 10 mg PO DAILY PRN allergies 11/15/17 07/01/23 History azelastine 137 mcg (0.1 %) nasal 1 spray intranasal BID PRN Nasal 03/15/21 07/01/23 History spray aerosol Congestion acetaminophen 325 mg tablet 650 mg PO Q4 PRN Pain 07/01/23 07/01/23 History (Tylenol) filgrastim-sndz 480 mcg/0.8 mL 480 mcg subcut [id number] 07/01/23 07/01/23 History injection syringe (Zarxio) food supplemt, lactose-reduced 1 ea PO DAILY 07/01/23 07/01/23 History midodrine 5 mg tablet 5 mg PO TID 07/01/23 07/01/23 History multivitamin 1 tab PO Q OTHER DAY 07/01/23 07/01/23 History Past Med/Surg History Medical History Ureter ca left Carcinoma of bladder Neutropenia Surgical History H/O hysterectomy with unilateral oophorectomy History of urostomy History of left nephrectomy Social History Smoking Status: Never smoker Second Hand Exposure: No; Do You Dip or Chew Tobacco: No; Tobacco Cessation Education Requested by Patient: No Hx Alcohol Use: Yes Alcohol type: beer Hx Substance Use: No Preferred Language: Danish Communication Ability: Effective Spinner Iron Required: No Beliefs That Will Affect Care: None Current Living Situation: Spouse Current Living Situation Comment: lives at home with Other Information That Helps Us Care for You: No Feels Safe at Home: Yes Safety Concerns: Feels Safe At This Time Assistive Devices: Glasses Assistive Devices Comment: not with patient on admission Review of Systems Review of Systems: All systems reviewed & are unremarkable except as noted in HPI & below Physical Exam Physical Exam: General- Not in acute distress Head- atraumatic Eyes- PERRL ENT- oropharynx dry Neck- supple, no JVD. Lungs- clear to auscultation no wheezing or crackles Heart- regular rhythm;tachycardia , no murmur, no gallop. Abdomen- normal bowel sounds, soft, nontender, urostomy seen Extremities- mild pretibial edema present, no erythema seen. Neuro- alert, oriented x 2; PERRL, no facial palsy; no dysarthria;Obeys simple commands, moves extremities. Skin- stage 1 decubitus ulcer Results & Data Results & Data Vital Signs (Past 12 Hours) Vital Signs Temp Pulse Pulse Resp BP Pulse Ox O2 Del Method 07/01/23 02:00 95 H 18 125/88 98 Room Air 07/01/23 00:46 99 H 18 130/79 97 06/30/23 23:51 103 H 18 118/64 98 Room Air 06/30/23 23:39 105 H 06/30/23 23:07 105 H 18 121/64 95 Room Air 06/30/23 23:07 105 H 18 94 Room Air 06/30/23 22:46 37.4 C 15 98 Room Air 06/30/23 22:46 Room Air 06/30/23 22:46 37.4 C 113 H 15 94 Room Air Diagnostic Findings Laboratory Results WBC 0.57 K/ul (4.8-10.8) L* 06/30/23 22:55 RBC 2.63 M/uL (4.20-5.40) L 06/30/23 22:55 Hgb 7.0 g/dl (12.0-16.0) L 06/30/23 22:55 Hct 21.5 % (37.0-47.0) L 06/30/23 22:55 MCV 81.7 fL (80.0-100.0) 06/30/23 22:55 MCH 26.6 pg (25.0-34.0) 06/30/23 22:55 MCHC 32.6 g/dL (32.0-36.0) 06/30/23 22:55 RDW Std Deviation 56.5 fL (36.4-46.3) H 06/30/23 22:55 RDW Coeff of Nisha 18.7 % (11.5-14.5) H 06/30/23 22:55 Plt Count 207 K/uL (130-400) 06/30/23 22:55 MPV 10.4 fL (9.4-12.4) 06/30/23 22:55 Neutrophils % (Manual) 7 % 06/30/23 22:55 Lymphocytes % (Manual) 73 % 06/30/23 22:55 Monocytes % (Manual) 10 % 06/30/23 22:55 Eosinophils % (Manual) 10 % 06/30/23 22:55 Neutrophils # (Manual) 0.04 K/uL (1.40-6.50) L 06/30/23 22:55 Total Absolute Neuts 0.04 K/uL (1.4-6.5) L* 06/30/23 22:55 Lymphocytes # (Manual) 0.42 K/uL (1.2-3.4) L 06/30/23 22:55 Total Abs Lymphocytes 0.42 K/uL (1.2-3.4) L 06/30/23 22:55 Monocytes # (Manual) 0.06 K/uL (0.11-0.59) L 06/30/23 22:55 Eosinophils # (Manual) 0.06 K/uL (0-0.50) 06/30/23 22:55 RBC Morphology Unremarkable 06/30/23 22:55 Sodium 145 mmol/L (136-145) 06/30/23 22:55 Potassium 3.1 mmol/L (3.5-5.1) L 06/30/23 22:55 Chloride 122 mmol/L (98-107) H 06/30/23 22:55 Carbon Dioxide 16 mmol/L (21-32) L 06/30/23 22:55 Anion Gap 7 (3-11) 06/30/23 22:55 BUN 73 mg/dl (6-23) H 06/30/23 22:55 Creatinine 2.57 mg/dl (0.6-1.2) H 06/30/23 22:55 Est Cr Clr Drug Dosing 16.5 ml/min 06/30/23 22:55 Est GFR ( Amer) 21.0 ml/min 06/30/23 22:55 Est GFR (Non-Af Amer) 18.1 ml/min 06/30/23 22:55 BUN/Creatinine Ratio 28.4 (10-20) H 06/30/23 22:55 Glucose 97 mg/dl (70-99(Fasting)) 06/30/23 22:55 Lactate 0.9 mmol/L (0.4-2.0) 06/30/23 22:55 Calcium 7.9 mg/dl (8.6-10.3) L 06/30/23 22:55 Magnesium 1.9 mg/dl (1.7-2.4) 06/30/23 22:55 Total Bilirubin 0.7 mg/dl (0.2-1.0) 06/30/23 22:55 Direct Bilirubin 0.3 mg/dl (0-0.2) H 06/30/23 22:55 AST 5 U/L (13-39) L 06/30/23 22:55 ALT 4 U/L (7-52) L 06/30/23 22:55 Alkaline Phosphatase 40 U/L (34-104) 06/30/23 22:55 Troponin I High Sens 72.7 pg/ml (0-14) H* D 07/01/23 00:34 Total Protein 4.9 gm/dl (6.0-8.3) L 06/30/23 22:55 Albumin 1.7 gm/dl (3.4-5.0) L 06/30/23 22:55 Procalcitonin 19.30 ng/ml (0-0.5) H 06/30/23 22:55 Urine Color Yellow 06/30/23 23:27 Urine Appearance Turbid (Clear) A 06/30/23 23: Urine pH 6.0 (4.5-7.5) 06/30/23 23: Ur Specific [place] 1.013 (1.000-1.030) 06/30/23 23: Urine Protein 2+ (Negative) H 06/30/23 23: Urine Glucose (UA) Negative (Negative) 06/30/23 23: Urine Ketones Negative (Negative) 06/30/23 23: Urine Blood Negative (Negative) 06/30/23 23: Urine Nitrite Negative (Negative) 06/30/23 23: Urine Bilirubin Negative (Negative) 06/30/23 23: Urine Urobilinogen Negative (Negative) 06/30/23 23: Ur Leukocyte Esterase Negative (Negative) 06/30/23 23:27 Urine WBC (Auto) 6-10 /hpf (0-5) H 06/30/23 23:27 Urine RBC (Auto) 0-2 /hpf (0-2) 06/30/23 23: U Hyaline Cast (Auto) 6-10 /lpf (0-2) H 06/30/23 23:27 U Epithel Cells (Auto) 0-2 /hpf (0-2) 06/30/23 23:27 Urine Bacteria (Auto) 4+ (None Seen) H 06/30/23 23:27 Stl C. diff Tox B Gene Negative Cdiff Gene (Neg) 07/01/23 01:50 Adenovirus (PCR) Not Detected (NotDetected) 06/30/23 23:00 B. pertussis DNA (PCR) Not Detected (NotDetected) 06/30/23 23:00 B.parapertussis DNA PCR Not Detected (NotDetected) 06/30/23 23:00 C. pneumoniae DNA (PCR) Not Detected (NotDetected) 06/30/23 23:00 Coronavirus OC43 (PCR) Not Detected (NotDetected) 06/30/23 23:00 Coronavirus HKU1 (PCR) Not Detected (NotDetected) 06/30/23 23:00 Coronavirus 229E (PCR) Not Detected (NotDetected) 06/30/23 23:00 SARS-CoV-2 (PCR) Not Detected (NotDetected) 06/30/23 23:00 Coronavirus NL63 (PCR) Not Detected (NotDetected) 06/30/23 23:00 Human Metapneumovir PCR Not Detected (NotDetected) 06/30/23 23:00 Influenza Type A (PCR) Not Detected (NotDetected) 06/30/23 23:00 Influenza Type B (PCR) Not Detected (NotDetected) 06/30/23 23:00 M. pneumoniae (PCR) Not Detected (NotDetected) 06/30/23 23:00 Parainfluenza 1 (PCR) Not Detected (NotDetected) 06/30/23 23:00 Parainfluenza 2 (PCR) Not Detected (NotDetected) 06/30/23 23:00 Parainfluenza 3 (PCR) Not Detected (NotDetected) 06/30/23 23:00 Parainfluenza 4 (PCR) Not Detected (NotDetected) 06/30/23 23:00 RSV (PCR) Not Detected (NotDetected) 06/30/23 23:00 Entero/Rhino (PCR) Not Detected (NotDetected) 06/30/23 23:00 Group A Strep (PCR) NOT DETECTED (NotDetected) 06/30/23 23:[address] 06/30/23 22:47 Exam(s): CT HEAD Without Contrast EXAM: CT Head Without Intravenous Contrast CLINICAL HISTORY: Reason for exam: bladder CA, AMS, fever. TECHNIQUE: Axial computed tomography images of the head/brain without intravenous contrast. Automated exposure control was utilized for the study. A dose lowering technique was utilized adhering to the principles of ALARA. COMPARISON: No relevant prior studies available. FINDINGS: Brain: Unremarkable. No hemorrhage. No significant white matter disease. No edema. Ventricles: Unremarkable. No ventriculomegaly. Bones/joints: Unremarkable. No acute fracture. Soft tissues: Unremarkable. Sinuses: Findings concerning for acute maxillary sinusitis with air- fluid levels. Mastoid air cells: Unremarkable as visualized. No mastoid effusion. IMPRESSION: No evidence of acute intracranial pathology. Findings concerning acute maxillary sinusitis with air-fluid levels. Electronically signed by: Elisa Willis MD 07/01/23 00:00 AM Abdomen/Pelvis CT 06/30/23 23:47 Exam(s): CT ABDOMEN + PELVIS Without Contrast EXAM: CT Abdomen and Pelvis Without Intravenous Contrast CLINICAL HISTORY: Reason for exam: sepsis, ams. TECHNIQUE: Axial computed tomography images of the abdomen and pelvis without intravenous contrast. CTDI is 12.15 mGy and DLP is 550.3 mGy-cm. Automated exposure control was utilized for the study. A dose lowering technique was utilized adhering to the principles of ALARA. COMPARISON: Ultrasound from January 23, 2018 FINDINGS: Lung bases: See below. Pleural space: Small, 1 cm in left pleural effusion with mild bibasilar atelectasis. Mild to moderate cardiomegaly is present. ABDOMEN: Liver: Severe hepatomegaly measuring 26.6 cm craniocaudad. No focal liver lesion is seen. Gallbladder and bile ducts: Unremarkable. No calcified stones. No ductal dilation. Pancreas: Unremarkable. No ductal dilation. Spleen: Unremarkable. No splenomegaly. Adrenals: Unremarkable. No mass. Kidneys and ureters: The left kidney is absent. The right kidney appears within normal limits. No obstructing stones. No hydronephrosis. Stomach and bowel: The liver may compress the right lower quadrant ileostomy. There are scattered gas fluid levels within nondilated small bowel suggesting ileus. There is diverticulosis of the sigmoid colon without evidence of acute diverticulitis. PELVIS: Appendix: No findings to suggest acute appendicitis. Bladder: Unremarkable. No stones. Reproductive: Unremarkable as visualized. ABDOMEN and PELVIS: Intraperitoneal space: Unremarkable. No free air. No significant fluid collection. Bones/joints: There is an ill-defined 3.5 cm low-density in the left side of the pelvis located medial to the quadrilateral plate of the left iliac bone. Mild to moderate degenerative changes throughout the spine. No acute fracture, subluxation, or spinal stenosis. Soft tissues: Unremarkable. Vasculature: Unremarkable. No abdominal aortic aneurysm. Lymph nodes: Unremarkable. No enlarged lymph nodes. IMPRESSION: 1. There is an ill-defined 3.5 cm low-density in the left side of the pelvis located medial to the quadrilateral plate of the left iliac bone. This is nonspecific. Questionable abscess versus mass or lymphadenopathy. This is not well evaluated without the use of IV contrast. 2. Severe hepatomegaly measuring 26.6 cm craniocaudad. No focal liver lesion is seen. 3. The liver may compress the right lower quadrant ileostomy. There are scattered gas fluid levels within nondilated small bowel suggesting ileus. There is diverticulosis of the sigmoid colon without evidence of acute diverticulitis. 4. Small, 1 cm in left pleural effusion with mild bibasilar atelectasis. Mild to moderate cardiomegaly is present. Electronically signed by: Dagoberto Elliott MD 07/01/23 00:50 AM ECG Additional Comments: ECG: Sinus tachycardia with a rate of 105. Possible left atrial lodgment. Nonspecific T wave abnormalities. Code Status & VTE Plan VTE Prophylaxis Plan VTE Prophylaxis will be ordered: Yes
[2023-07-01] MEDS ORDERED: LORATADINE 10 MG TAB PO PRN (03:32)
[2023-07-01] MEDS ORDERED: AZELASTINE HCL 0.1% NASAL 200 SPRAYS/27,400 MCG BTL PRN (03:32)
[2023-07-01] MEDS ORDERED: ACETAMINOPHEN 325 MG TAB PO PRN (03:32)
[2023-07-01] MEDS ORDERED: NITROGLYCERIN SL 0.4 MG/TAB TAB SL PRN (03:32)
[2023-07-01] MEDS: D5W AND NSS 1,000 ML IV SCH (03:47)
[2023-07-01] MEDS: POTASSIUM CHLORIDE / WTR 10 MEQ/100 ML PLCT IV SCH (03:57)
[2023-07-01 06:41] LABS: Hemoglobin 7.7 g/dl (12.0-16.0); Mean Corpuscular Hemoglobin 25.8 pg (25.0-34.0); Mean Corpuscular Hgb Conc 32.1 g/dL (32.0-36.0); Mean Corpuscular Volume 80.3 fL (80.0-100.0); Mean Platelet Volume 10.6 fL (9.4-12.4); Platelet Count 188 K/uL (130-400); RDW Coefficient of Variation 18.7 % (11.5-14.5); RDW Standard Deviation 55.2 fL (36.4-46.3); Red Blood Count 2.99 M/uL (4.20-5.40)
[2023-07-01 06:44] LABS: BUN Creatinine Ratio 28.4 (10-20); Calcium 7.8 mg/dl (8.6-10.3); Creatinine Clr Calc Pharmacy 17.6 ml/min; Est GFR (African American) 22.4 ml/min; Est GFR (Non-African American) 19.4 ml/min; Magnesium 1.9 mg/dl (1.7-2.4); Potassium 3.5 mmol/L (3.5-5.1)
[2023-07-01 06:52] LABS: Troponin I High Sensitivity 97.1 pg/ml (0-14)
[2023-07-01 07:14] LABS: Eosinophils # (auto) 0.05 K/uL (0.00-0.50); Eosinophils % (auto) 7.1 %; Lymphocytes # (auto) 0.43 K/uL (1.20-3.40); Lymphocytes % (auto) 61.4 %; Monocytes # (auto) 0.15 K/uL (0.11-0.59); Monocytes % (auto) 21.4 %; Neutrophils # (auto) 0.07 K/uL (1.40-6.50); Neutrophils % (auto) 10.1 %
--- NOTE | 2023-07-01 07:32 | XRay Report ---
SINGLE VIEW CHEST CLINICAL HISTORY: Sepsis. FINDINGS: An AP, portable, upright chest radiograph is compared to study dated 09/17/2012. The heart i s enlarged. There is mild pulmonary vascular congestion. Small pleural effusions are suspected. There is bibasilar scarring/atelectasis. Parenchymal scarring is noted in the right upper lobe. No pneumot horax is seen. The skeletal structures are osteopenic. The bony thorax is grossly intact. Surgical cl ips are seen in the upper abdomen. IMPRESSION: 1. Cardiomegaly with pulmonary vascular congestion. 2. Suspect small pleural effusions. ACT 112: Negative or not required by law. Electronically signed by: Yao Schuler M.D. 07/01/2023 7:30 AM
--- NOTE | 2023-07-01 08:34 | Electrocardiogram Report ---
Test Reason : Blood Pressure : / mmHG Vent. Rate : 105 BPM Atrial Rate : 105 BPM P-R Int : 118 ms QRS Dur : 082 ms QT Int : 340 ms P-R-T Axes : 054 036 051 degrees QTc Int : 449 ms Sinus tachycardia Possible Left atrial enlargement Borderline ECG When compared with ECG of 15-SEP-2012 20:00, Nonspecific T wave abnormality now evident in Anterior leads Confirmed by Nikhil Aparicio ([id number]) on 07/01/2023 8:33:47 AM Referred By: REFERRED SELF Confirmed By:Lucio Aparicio
[2023-07-01] MEDS ORDERED: NON-FORMULARY MEDICATION (Food Supplemt, Lactose-Reduced Liquid) PO SCH (09:00)
[2023-07-01] MEDS: D5W AND 1/2NSS 1,000 ML IV SCH (09:06)
[2023-07-01] MEDS: MIDODRINE HCL 2.5 MG TAB PO SCH (09:08)
[2023-07-01] MEDS: FIRST - Mouthwash BLM 119 ML PO SCH (09:08)
[2023-07-01] MEDS: MULTIVITAMIN TAB PO SCH (09:08)
[2023-07-01] MEDS ORDERED: STAT IV/IM STA (09:23)
--- NOTE | 2023-07-01 09:28 | Nephrology Consultation ---
Date of Consultation July 01, 2023 Assessment & Plan (1) Acute renal failure (ARF): Currently has JUANITO on background CKD 4. She has only 1 kidney. left nephrectomy done 2020 and now had Cystectomy and also ileal conduit. Creat baseline 1.7 most recently and now is higher in the setting of Sepsis. Some volume depletion noted but likely has ATN also. Given her tiny size have to be cautious with hydration. better to correct slowly. Change iv fluid to d5w with 75 meq bicarb at 75/hr. K is actually low but likely masked by low bicarb. will need some supplement. CT abdomen reviewed and no Hydronephrosis noted. Avoid nephrotoxic Abx and agents like NSAIDs,contrast etc for now supportive care with good BP and O2 level. Creat this AM slightly better than yesterday so hopeful JUANITO will improve in the coming days. (2) Sepsis: In patient with very Low ANC and very succeptibel to infection. On Abx currently. C/s are pending. with her ileal Conduit always at risk for UTI and urosepsis. Plan Case complexity high. reviewed urology and hematology note from recent outpt. extensive reviewe of multiple recent health events. Time spent 1hr 20 min. Plan above Discussed with primary Hospitalist History of Present Illness Reason for Consultation: JUANITO on CKD 4 Attending Physician: Keiko Miller MD History of Present Illness 73/F with invasive high-grade urothelial carcinoma initial diagnosed 2020 involving the left ureter s/p left nephroureterectomy on February 01, 2021 and s/p BCG in 2021. In January 2023 diagnosed with high-grade invasive urothelial carcinoma with sarcomatoid features and focal squamous differentiation with lymphovascular invasion and muscularis propria. 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 She had hysterectomy bilateral salpingo-oophorectomy with cystectomy and ileal conduit on May 08, 2023, chronic neutropenia since 2012 and history leukemia(1996) currently on Neupogen 4 times a week and she gets weekly CBCs and as per recently received 2 PRBC units follows with heme- onc( dr campbell) history of CKD stage III, recently in May 2023 patient was in [facility] with septic shock and urosepsis and CT scan showing right hydroureteronephrosis and also small right hemipelvis abscess. Was transferred to [place]. Was requiring pressors. In [place] seen by urology. 14 Angolan red rubber catheter was placed in the urostomy and 10 mL of cloudy urine obtained and sent for culture and separately ureteral stent was aspirated. Prior to aspiration the stent was not draining and after the aspiration stent started to drain spontaneously. It was thought that stent was not draining appropriately due to mucus and sediments. Cultures grew pansensitive E. coli and Enterococcus sensitive to ampicillin and Vanco. Patient received antibiotic Ancef Unasyn and Zosyn and was thought she tolerated penicillin okay. She was discharged on Augmentin. She was in [place] from May 26, 2023 to May 30, 2023.. As per since she came home , she again started having fevers when she was about to complete antibiotic course. She is taking Tylenol regularly for fevers per . And last 1 week she developed sore mouth. She is using Magic swizzle. As per the last 2 days she is not eating anything because of severe soreness in the mouth. And because of sore mouth and poor oral intake and ongoing fever and lately patient getting somewhat confused got worried about developing sepsis and brought to the ER today. She was also diagnosed with COVID on June 13, 2023. Creat was 1.7 most recently outpt and now is higher at 2.5 and slightly low Bicarb. thought of as having Sepsis. Urine and Blood C/s pending and currently on Broad spectrum Abx. urine 300 ml so far.getting iv fluid. Creat very slightly down overnight. Making urine. BP is now good. ROS---weak. Trembling speech. Poor Po intake. Sore mouth. Patient denies any headache. Denies any back pain. Denies chest pain. Denies shortness of breath. No runny nose. Has sore throat. No cough. No abdominal pain. She is having some loose stools. Ambulates without support. Feeling weak. 12 Systems reviewed and negative Physical Exam Physical Exam: General- Not in acute distress. Looks weak and frail. Pale Head- atraumatic ENT- oropharynx dry Neck- supple, no JVD. Lungs- clear to auscultation no wheezing or crackles Heart- regular rhythm;tachycardia , no murmur, no gallop. Abdomen- normal bowel sounds, soft, nontender, urostomy seen Extremities- 1+ edema present, no erythema seen. Neuro- alert, oriented x 2; PERRL, no facial palsy; no dysarthria;Obeys simple commands, moves extremities. Allergies Allergy/AdvReac Type Severity Reaction Status Date / Time Penicillins Allergy Intermediate Airway Verified 07/01/23 00:29 edema, rash pollen extracts Allergy Unknown Unknown Verified 07/01/23 00:29 Home Medications Medication Instructions Recorded Confirmed Type loratadine 10 mg tablet (Claritin) 10 mg PO DAILY PRN allergies 11/15/17 07/01/23 History azelastine 137 mcg (0.1 %) nasal 1 spray intranasal BID PRN Nasal 03/15/21 07/01/23 History spray aerosol Congestion acetaminophen 325 mg tablet 650 mg PO Q4 PRN Pain 07/01/23 07/01/23 History (Tylenol) filgrastim-sndz 480 mcg/0.8 mL 480 mcg subcut 4XWK 07/01/23 07/01/23 History injection syringe (Zarxio) food supplemt, lactose-reduced 1 ea PO DAILY 07/01/23 07/01/23 History midodrine 5 mg tablet 5 mg PO TID 07/01/23 07/01/23 History multivitamin 1 tab PO Q OTHER DAY 07/01/23 07/01/23 History Patient History Medical History Ureter ca left Carcinoma of bladder Neutropenia Surgical History H/O hysterectomy with unilateral oophorectomy History of urostomy History of left nephrectomy Social History Smoking Status: Never smoker Second Hand Exposure: No; Do You Dip or Chew Tobacco: No; Tobacco Cessation Education Requested by Patient: No Hx Alcohol Use: Yes Alcohol type: beer Hx Substance Use: No Preferred Language: Indonesian Communication Ability: Effective Supervisor Title Required: No Beliefs That Will Affect Care: None Current Living Situation: Spouse Current Living Situation Comment: lives at home with Other Information That Helps Us Care for You: No Feels Safe at Home: Yes Safety Concerns: Feels Safe At This Time Assistive Devices: Glasses Assistive Devices Comment: not with patient on admission Results & Data Vital Signs (Past 12 Hours) Vital Signs Temp Pulse Pulse Resp BP Pulse Ox O2 Del Method 07/01/23 07:37 37.1 C 116 H 22 129/71 99 Room Air 07/01/23 03:33 Room Air 07/01/23 03:33 37.3 C 101 H 20 118/65 97 Room Air 07/01/23 03:25 105 H 07/01/23 02:00 95 H 18 125/88 98 Room Air 07/01/23 00:46 99 H 18 130/79 97 06/30/23 23:51 103 H 18 118/64 98 Room Air 06/30/23 23:39 105 H 06/30/23 23:07 105 H 18 121/64 95 Room Air 06/30/23 23:07 105 H 18 94 Room Air 06/30/23 22:46 37.4 C 15 98 Room Air 06/30/23 22:46 Room Air 06/30/23 22:46 37.4 C 113 H 15 94 Room Air Laboratory Results Reviewed. Diagnostic Findings Reviewed. (1) Acute renal failure (ARF) Acute renal failure type: unspecified Qualified Code(s): N17.9 - Acute kidney failure, unspecified
[2023-07-01] MEDS: SODIUM BICARBONATE 8.4% 75 MEQ in DEXTROSE 5% 1,000 ML IV SCH (09:51)
[2023-07-01] MEDS: CEFEPIME 1,000 MG in SYRINGE 0 ML IV SCH (09:55)
[2023-07-01] MEDS: HEPARIN SOD 5,000 UNIT/0.5 ML VIAL SQ SCH (09:55)
[2023-07-01 10:52] LABS: A calco-baum cmplx NotReported Not Detected (NotDetected); Bact fragilis Not Reported Not Detected (NotDetected); Blood Culture Id Panel See PCR Comment (NotDetected); C auris Not Reported Not Detected (NotDetected); CTX-M Resistant Gene Not Detected (NotDetected); Calbicans Not Reported Not Detected (NotDetected); Candida glabrata Not Reported Not Detected (NotDetected); Candida krusei Not Reported Not Detected (NotDetected); Cneoformans/gatti Not Reported Not Detected (NotDetected); Cparapsilosis Not Reported Not Detected (NotDetected); E cloacae compx Not Reported Not Detected (NotDetected); Efaecalis Not Reported Not Detected (NotDetected); Efaecium Not Reported Not Detected (NotDetected); Enterobacterales DETECTED (NotDetected); Enterobacterales Not Reported DETECTED (NotDetected); Escherichia coli Not Reported DETECTED (NotDetected); H influenzae Not Reported Not Detected (NotDetected); IMP Resistant Gene Not Detected (NotDetected); K aerogenes Not Reported Not Detected (NotDetected); KPC Resistant Gene Not Detected (NotDetected); Koxytoca Not Reported Not Detected (NotDetected); Kpneumoniae grp Not Reported Not Detected (NotDetected); Lmonocyt Not Reported Not Detected (NotDetected); N meningitidis Not Reported Not Detected (NotDetected); NDM Resistant Gene Not Detected (NotDetected); OXA 48 Like Resistant Gene Not Detected (NotDetected); P aeruginosa Not Reported Not Detected (NotDetected); Proteus spp Not Reported Not Detected (NotDetected); Salmonella spp Not Reported Not Detected (NotDetected); Smarcescens Not Reported Not Detected (NotDetected); Staph lugdunensis Not Reported Not Detected (NotDetected); Staph spp. Not Reported Not Detected (NotDetected); Staphaureus Not Reported Not Detected (NotDetected); Staphepi Not Reported Not Detected (NotDetected); Stenmaltophilia Not Reported Not Detected (NotDetected); Strep agal(GrpB) Not Reported Not Detected (NotDetected); Strep pneum Not Reported Not Detected (NotDetected); Strep pyog (GrpA) Not Reported Not Detected (NotDetected); Strep spp Not Reported Not Detected (NotDetected); VIM Resistant Gene Not Detected (NotDetected); mcr-1 Colistin Resistant Gene Not Detected (NotDetected)
--- NOTE | 2023-07-01 12:12 | Communication Note ---
Date of Service: July 01, 2023 Patient seen and examined Patient is acute on chronic ill appearing Does not talk much which she attributed to soreness in her throat. Appears very weak. Shaky. Dry oral mucosa Tachycardic. Not in resp distress Urostomy intact with yellowish urine. No abd tenderness. Labs notable for leukopenia with white blood cell count of 0.7, hemoglobin of 7.7, neutropenia of 0.07, sodium of 147, chloride 124, bicarb of 15, creatinine of 2.43, troponin 58->170 Blood cultures growing GNR. PCR positive for E. coli. Urology evaluation noted. Has hypernatremia and acidosis with JUANITO, D5 normal saline discontinued. 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 Currently on bicarb drip. 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
--- NOTE | 2023-07-01 12:33 | Urology Consultation ---
Date of Consultation July 01, 2023 Assessment & Plan (1) Sepsis: (2) Acute renal failure (ARF): (3) UTI (urinary tract infection): Plan 73yo/F with a complicated hx including high-grade urothelial carcinoma s/p left nephroureterectomy 2020 and cystectomy w/ ileal conduit April 2023 at [facility] admitted with AMS, ARF, suspected UTI. Urology was consulted for recurrent UTI; Hx of ileal conduit - Afebrile, normotensive, tachycardic - Labs - WBC 0.70, Creatinine 2.43, Hemoglobin 7.7. Continue to trend. Nephrology following. - Urine culture 06/29 pending - Blood culture 06/29 prelim gram-negative bacilli, repeat blood cultures pending - On cefepime/vancomycin - No plan for urological intervention - CT reviewed and shows the right kidney without hydronephrosis or obstructing stone - Urostomy is draining clear yellow urine, continue to monitor. - She is at increased risk of UTI with an ileal conduit. - Continue antibiotics for treatment of infection and tailor as culture data becomes available - Continue supportive care and management per primary team - Questionable collection on the left pelvis region on CT imaging. If there is concern of abscess, would likely need transfer for IR evaluation - Recommend continued follow-up with primary urologist - Urology will follow peripherally. Please call with any further questions, concerns, or changes in patient status Plan of care reviewed with Dr. Amaya, on-call urologist History of Present Illness Attending Physician: Keiko Miller MD History of Present Illness 73 year old female with a PMHx significant for invasive high-grade urothelial carcinoma diagnosed 2020 involving the left ureter s/p left nephroureterectomy on February 01, 2021 and s/p BCG in 2021. In January 2023 diagnosed with high- grade invasive urothelial carcinoma with sarcomatoid features and focal squamous differentiation with lymphovascular invasion and muscularis propria. She underwent hysterectomy bilateral salpingo-oophorectomy with cystectomy and ileal conduit on May 08, 2023 at [facility]. Recently in May had septic shock and urosepsis and was in [place] requiring pressors. At that time ureteral stent was blocked which was cleared with aspiration by urology. Since returning home, she was noted to having fevers, developing mouth sore, and poor oral intake. Due to worsening symptoms and confusion she was brought to the ER for evaluation and is admitted to medicine service. History obtained from chart review. Urology was consulted for recurrent UTI, hx of ureteroileal conduit CT abdomen pelvis- 1. There is an ill-defined 3.5 cm low-density in the left side of the pelvis located medial to the quadrilateral plate of the left iliac bone. This is nonspecific. Questionable abscess versus mass or lymphadenopathy. This is not well evaluated without the use of IV contrast. 2. Severe hepatomegaly measuring 26.6 cm craniocaudad. No focal liver lesion is seen. 3. The liver may compress the right lower quadrant ileostomy. There are scattered gas fluid levels within nondilated small bowel suggesting ileus.There is diverticulosis of the sigmoid colon without evidence of acute diverticulitis. 4. Small, 1 cm in left pleural effusion with mild bibasilar atelectasis. Mild to moderate cardiomegaly is present. Patient was seen at bedside this morning. Awake, resting in bed on arrival. No acute distress. She reports sore throat and dry mouth. Urostomy intact. Denies fever. Denies flank pain. Denies CP/SOB. Allergies Allergy/AdvReac Type Severity Reaction Status Date / Time Penicillins Allergy Intermediate Airway Verified 07/01/23 00:29 edema, rash pollen extracts Allergy Unknown Unknown Verified 07/01/23 00:29 Home Medications Medication Instructions Recorded Confirmed Type loratadine 10 mg tablet (Claritin) 10 mg PO DAILY PRN allergies 11/15/17 07/01/23 History azelastine 137 mcg (0.1 %) nasal 1 spray intranasal BID PRN Nasal 03/15/21 07/01/23 History spray aerosol Congestion acetaminophen 325 mg tablet 650 mg PO Q4 PRN Pain 07/01/23 07/01/23 History (Tylenol) filgrastim-sndz 480 mcg/0.8 mL 480 mcg subcut 4XWK 07/01/23 07/01/23 History injection syringe (Zarxio) food supplemt, lactose-reduced 1 ea PO DAILY 07/01/23 07/01/23 History midodrine 5 mg tablet 5 mg PO TID 07/01/23 07/01/23 History multivitamin 1 tab PO Q OTHER DAY 07/01/23 07/01/23 History Patient History Medical History Ureter ca left Carcinoma of bladder Neutropenia Surgical History H/O hysterectomy with unilateral oophorectomy History of urostomy History of left nephrectomy Social History Smoking Status: Never smoker Second Hand Exposure: No; Do You Dip or Chew Tobacco: No; Tobacco Cessation Education Requested by Patient: No Hx Alcohol Use: Yes Alcohol type: beer Hx Substance Use: No Preferred Language: Uruguayan Communication Ability: Effective 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 Beliefs That Will Affect Care: None Current Living Situation: Spouse Current Living Situation Comment: lives at home with Other Information That Helps Us Care for You: No Feels Safe at Home: Yes Safety Concerns: Feels Safe At This Time Assistive Devices: Glasses Assistive Devices Comment: not with patient on admission Review of Systems Review of Systems: All systems reviewed & are unremarkable except as noted in HPI & below Physical Exam Constitutional: + ill appearing and + frail appearing; n o acute distress ENMT: oropharynx dry Neck: normal visual inspection Respiratory: no respiratory distress and no labored breathing Musculoskeletal: Head/Neck/Chest: normocephalic Skin: No visible rashes to exposed skin area Neurologic: awake Psychiatric: Orientation: alert and cooperative Genitourinary: Urostomy intact, draining yellow urine Results & Data Vital Signs (Past 12 Hours) Vital Signs Temp Pulse Pulse Resp BP Pulse Ox O2 Del Method 07/01/23 11:31 36.5 C 116 H 22 123/71 95 Room Air 07/01/23 07:37 37.1 C 116 H 22 129/71 99 Room Air 07/01/23 03:33 Room Air 07/01/23 03:33 37.3 C 101 H 20 118/65 97 Room Air 07/01/23 03:25 105 H 07/01/23 02:00 95 H 18 125/88 98 Room Air 07/01/23 00:46 99 H 18 130/79 97 06/30/23 23:51 103 H 18 118/64 98 Room Air PG Care Time/CCT Total # of Minutes Spent Total Time Spent with Patient: Total time spent is greater than 50% in coordination of care (as documented) at patient's floor/unit and/or counseling patient: Coding Level of Care Code 12592 INT INP/OBS CARE Diagnoses Sepsis A41.9 Acute renal failure (ARF) N17.9 Acute renal failure type: unspecified UTI (urinary tract infection) N39.0 (2) Acute renal failure (ARF) Acute renal failure type: unspecified Qualified Code(s): N17.9 - Acute kidney failure, unspecified
--- NOTE | 2023-07-01 13:25 | Pharmacy Report ---
Pharmacy PK ABX Note - Date of Service July 01, 2023 - Assessment and Plan Assessment 73 year old F receiving cefepime and vancomycin for UTI/bacteremia. PMHx significant for invasive high-grade urothelial carcinoma initial diagnosed 2020 involving the left ureter s/p left nephroureterectomy 2020. In 2022 she was dx with urothelial carcinoma, hx of leukemia. Recently at [facility] where a pelvis abscess was detected and transferred to [place]. Received numerous antibiotics during hospitalization from May 25- and was discharged home on augmentin. Started to have fevers recently again during the time of nearing antibiotic course outpatient. Blood cultures preliminary with Gm neg bacilli - biofire showing e coli. Urine culture pending Day # 1 of antimicrobial therapy. Plan Vancomycin * Loading dose: 1000 mg x 1 (given this AM) * Patient's t1/2 > 24 hours therefore will dose based upon levels * Random vancomycin level this afternoon came back at ~10 mcg/ml - will redose with vancomycin 750 mg x 1 now to maintain estimated peak of ~30 mcg/ml * Will plan to obtain another random vancomycin level in AM to assist with further dosing. Pharmacy will continue to follow and will adjust dose/frequency as necessary. Thank you.
[2023-07-01] MEDS: ACETAMINOPHEN 1,000 MG/100 ML VIAL IV PRN (13:33)
[2023-07-01] MEDS: VANCOMYCIN HCL 750 MG in SODIUM CHLORIDE 0.9% 250 ML IV ONE (13:34)
[2023-07-01] MEDS: PNEUMOCOCCAL VACCINE (PCV20) 20-VAL CONJ-DIP CRM/PF 0.5 ML SYR IM ONE (14:02)
[2023-07-01] MEDS: FILGRASTIM 480 MCG/1.6 ML VIAL SQ SCH (19:38)
[2023-07-02 08:55] LABS: Hematocrit (blood only) 25.1 % (37.0-47.0); Hemoglobin 8.1 g/dl (12.0-16.0); Mean Corpuscular Hemoglobin 25.4 pg (25.0-34.0); Mean Corpuscular Hgb Conc 32.3 g/dL (32.0-36.0); Mean Corpuscular Volume 78.7 fL (80.0-100.0); Mean Platelet Volume 11.5 fL (9.4-12.4); Platelet Count 173 K/uL (130-400); RDW Standard Deviation 54.5 fL (36.4-46.3); Red Blood Count 3.19 M/uL (4.20-5.40); White Blood Count 0.93 K/ul (4.8-10.8)
[2023-07-02 09:40] LABS: Albumin Level 1.8 gm/dl (3.4-5.0); Bilirubin,Total 0.7 mg/dl (0.2-1.0); Calcium 8.1 mg/dl (8.6-10.3); Potassium 3.6 mmol/L (3.5-5.1)
[2023-07-02 09:46] LABS: Albumin Globulin Ratio 0.5 (0.9-2); BUN Creatinine Ratio 30.3 (10-20); Creatinine Clr Calc Pharmacy 18.2 ml/min; Est GFR (African American) 23.5 ml/min; Est GFR (Non-African American) 20.3 ml/min; Globulin 3.7 gm/dl (2.5-4.0); Total Protein 5.5 gm/dl (6.0-8.3)
--- NOTE | 2023-07-02 10:00 | Pharmacy Report ---
Pharmacy PK ABX Note - Date of Service July 02, 2023 - Assessment and Plan Assessment 07/01 * Random level came back at ~13 mcg/ml - will continue to dose by levels since t1/2 is >24 hours. Will give another 750 mg x 1 now and order another random level tomorrow AM to assist with further dosing. 06/30 * 73 year old F receiving cefepime and vancomycin for UTI/bacteremia. PMHx significant for invasive high-grade urothelial carcinoma initial diagnosed 2020 involving the left ureter s/p left nephroureterectomy 2020. In 2022 she was dx with urothelial carcinoma, hx of leukemia. Recently at [facility] where a pelvis abscess was detected and transferred to [place]. Received numerous antibiotics during hospitalization from May 25- and was discharged home on augmentin. Started to have fevers recently again during the time of nearing antibiotic course outpatient. Blood cultures preliminary with Gm neg bacilli - biofire showing e coli. Urine culture pending Plan Vancomycin * Will give 750 mg x 1 now * Will order random level in AM and continue to dose by levels Pharmacy will continue to follow and will adjust dose/frequency as necessary. Thank you.
[2023-07-02] MEDS: VANCOMYCIN HCL 750 MG in SODIUM CHLORIDE 0.9% 250 ML IV ONE (10:08)
--- NOTE | 2023-07-02 10:21 | Nephrology Progress Note ---
Date of Service July 02, 2023 Assessment & Plan Admission and Anticipated Discharge Date Admission Date: July 01, 2023 Subjective Assessment & Plan (1) Acute renal failure (ARF): Currently has JUANITO on background CKD 4. She has only 1 kidney. left nephrectomy done 2020 and now had Cystectomy and also ileal conduit. Creat baseline 1.7 most recently and now is higher in the setting of Sepsis. Some volume depletion noted but likely has ATN also. At this point stop Bicarb drip. Has edema--sec to vol overload and also low albumin. CT abdomen reviewed and no Hydronephrosis noted. Avoid nephrotoxic Abx and agents like NSAIDs,contrast etc for now supportive care with good BP and O2 level. Creat this AM slightly better than yesterday and is making urine 1275 ml yester day. So JUANITO is not rapidly worsening. (2) Sepsis: In patient with very Low ANC and very succeptibel to infection. On Abx currently. C/s are pending. with her ileal Conduit always at risk for UTI and urosepsis. S--Feels very weak. Breathing is abnormal with grunting vs Stridor. too weak to even talk. made 1275 ml urine Physical Exam Physical Exam: General- Not in acute distress. Looks weak and frail. Pale Head- atraumatic ENT- oropharynx dry Neck- supple, no JVD. Lungs- clear to auscultation no wheezing or crackles Heart- regular rhythm;tachycardia , no murmur, no gallop. Abdomen- normal bowel sounds, soft, nontender, urostomy seen Extremities- 1+ edema present, no erythema seen. Neuro- alert, oriented x 2; PERRL, no facial palsy; no dysarthria;Obeys simple commands, moves extremities. Results & Data Vital Signs (Past 12 Hours) Vital Signs Temp Pulse Resp BP Pulse Ox Pulse Ox O2 Del Method 07/02/23 08:00 36.2 C L 105 H 20 116/77 96 Room Air 07/02/23 03:32 98 07/02/23 02:58 36.5 C 87 22 127/75 98 Room Air 07/02/23 00:00 Room Air 07/01/23 22:54 36.5 C 93 H 20 116/66 96 Room Air O2 Del Method 07/02/23 08:00 07/02/23 03:32 Room Air 07/02/23 02:58 07/02/23 00:00 07/01/23 22:54
[2023-07-02] MEDS: DEXTROSE 5% 1,000 ML IV SCH (11:58)
--- NOTE | 2023-07-02 14:20 | Hospitalist Progress Note ---
Date of Service July 02, 2023 Assessment & Plan (1) AMS (altered mental status): Plan: 73-year-old female with past medically significant for invasive high-grade urothelial carcinoma initial diagnosed 2020 involving the left ureter s/p left nephroureterectomy on February 01, 2021 and s/p BCG in 2021. CKD3 In January 2023 diagnosed with high-grade invasive urothelial carcinoma with sarcomatoid features and focal squamous differentiation with lymphovascular invasion and muscularis propria. 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 Was transferred to [place]. Was requiring pressors. In [place] seen by urology. 14 [place] red rubber catheter was intubated in the urostomy and 10 mL of cloudy urine obtained and sent for culture and separately ureteral stent was aspirated. Prior to aspiration the stent was not draining and after the aspiration stent started to drain spontaneously. It was thought that stent was not draining appropriately due to mucus and sediments. Cultures grew pansensitive E. coli and Enterococcus sensitive to ampicillin and Vanco. Patient received antibiotic Ancef Unasyn and Zosyn and was thought she tolerated penicillin okay. She was discharged on Augmentin. Was in [place] from May 26, 2023 to May 30, 2023. As per since she came home, she again started having fevers when she was about to complete antibiotic course. And last 1 week she developed sore mouth. She is using Magic swizzle. As per the last 2 days she is not eating anything because of severe soreness in the mouth. And because of sore mouth and poor oral intake and ongoing fever and lately patient getting somewhat confused got worried about developing sepsis and brought to the ER today. Patient somewhat slow to respond. Talking in low voices. Somewhat difficult to understand. Can tell her name. Knows that she is in the hospital. Knows her date of . Could not tell current dates. As per generally she can tell current dates. Patient denies any headache. Denies any back pain. Denies chest pain. Denies shortness of breath. No runny nose. Has sore throat. No cough. No abdominal pain. She is having some loose stools. Ambulates without support. Feeling weak. Hemodynamics okay in the ER. Lactic acid okay. She was also diagnosed with COVID on June 13, 2023. Altered mental status, Metabolic encephalopathy: Resolved Severe sepsis with acute kidney injury UTI JUANITO Solitary kidney Recently in May had septic shock and urosepsis and was in [place] requiring pressors. At that time ureteral stent was blocked which was cleared with aspiration by urology. This time, CT abd/P noted Ill-defined 3.5 cm low-density in the left side of the pelvis. Questionable abscess versus mass or lymphadenopathy Severe hepatomegaly measuring 26.6 cm craniocaudad. No focal liver lesion. Chest x-ray on admission noted cardiomegaly with pulmonary vascular congestion. Suspect small pleural effusion. Was started on Vanco and cefepime on admission. Blood culture 06/30/2023 growing GNR. PCR showed E. coli that was pansensitive per Pharmacy. Repeat blood cultures from 07/01/2023 negative so far Urine culture growing 3 different organisms. High counts likely contaminated. Required bicarb drip yesterday. Bicarb drip stopped today by nephrology. Creatinine is 2.34 today record [was 2.57 on admission, was 1.2-1.3 a month ago] Discussed IV fluids with steward/stewardess third Dr. Whittaker considering patient is NPO. Nephro recommends doing IV D5 water at 75 cc/h for now. Stop Vanco and cefepime. Start ceftriaxone 2 g every 24 hours Follow-up infectious workup. Repeat CXR today Repeat CT abd/P still showing collection. I called and discussed with Radiologist who noted it is similar to the one from admission. He noted cannot rule out abscess Considering these I called transfer center for possible transfer Awaiting call back Elevated troponin Likely demand ischemia in the setting of severe sepsis and JUANITO TTE today noted normal LV wall motion, EF 60-65, G1 DD Diarrhea had an episode of diarrhea in ER. C diff came back negative Sore mouth Continue Magic swizzle Speech recommends NPO for now Nystatin swish and spit Will get GI eval. May need assessment to rule out candidiasis considering her immune status Neutropenia Has chronic neutropenia since 2012 Currently on Neupogen shots 4 times a week Follows with heme-onc Follows with heme-onc Dr. Lizarraga Neutropenic precautions Anemia Hemoglobin 8.1 today Invasive high-grade urothelial carcinoma initially diagnosed in 2020 involving the left ureter./p left nephroureterectomy on February 01, 2021 and s/p BCG in 2021. In January 2023 diagnosed with high-grade invasive urothelial carcinoma with sarcomatoid features and focal squamous differentiation with lymphovascular invasion and muscularis propria. 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 Full code I spent a total of 55 minutes coordinating, documenting and providing care for this patient excluding time spent in performance of separately billed services Admission and Anticipated Discharge Date Admission Date: July 01, 2023 Subjective Patient seen and examined. Patient reports difficulty speaking due to so mild. She was able to answer simple yes or no questions and also write out her questions or answers. Reports mostly soreness in her mouth and throat. Reports weakness. Denies any other complaints at this time. Physical Exam Constitutional: no acute distress Acute on chronic ill looking Eyes: PERRL, conjunctivae normal, anicteric sclerae ENMT: Very dry oral mucosa. Seems to be a mouth breather as well Respiratory: On room air. Mild tachypnea. No crackles Cardiovascular: S1 S2 Gastrointestinal (Abdomen): normal bowel sounds, soft, nontender, no hepatosplenomegaly Musculoskeletal: +pedal edema Neurologic: PERRL, EOMI, accommodation nl, no face palsy, no dysarthria Results & Data Results & Data Vital Signs (Past 12 Hours) Vital Signs Temp Pulse Resp BP Pulse Ox Pulse Ox O2 Del Method 07/02/23 11:35 36.3 C L 95 H 22 114/73 97 Room Air 07/02/23 08:00 36.2 C L 105 H 20 116/77 96 Room Air 07/02/23 03:32 98 07/02/23 02:58 36.5 C 87 22 127/75 98 Room Air O2 Del Method 07/02/23 11:35 07/02/23 08:00 07/02/23 03:32 Room Air 07/02/23 02:58 Laboratory Results Abnormal lab results 07/01/23 07/02/23 Range/Units 16:52 07:31 WBC 0.93 L* (4.8-10.8) K/ul RBC 3.19 L (4.20-5.40) M/uL Hgb 8.1 L (12.0-16.0) g/dl Hct 25.1 L (37.0-47.0) % MCV 78.7 L (80.0-100.0) fL RDW Std Deviation 54.5 H (36.4-46.3) fL RDW Coeff of Nisha 19.0 H (11.5-14.5) % Sodium 148 H (136-145) mmol/L Chloride 122 H (98-107) mmol/L Carbon Dioxide 18 L (21-32) mmol/L BUN 71 H (6-23) mg/dl Creatinine 2.34 H (0.6-1.2) mg/dl BUN/Creatinine Ratio 30.3 H (10-20) Glucose 125 H (70-99(Fasting)) mg/dl Calcium 8.1 L (8.6-10.3) mg/dl AST 4 L (13-39) U/L ALT 4 L (7-52) U/L Troponin I High Sens 162.6 H* (0-14) pg/ml Total Protein 5.5 L (6.0-8.3) gm/dl Albumin 1.8 L (3.4-5.0) gm/dl Albumin/Globulin Ratio 0.5 L (0.9-2)
--- NOTE | 2023-07-02 14:52 | XRay Report ---
SINGLE VIEW CHEST CLINICAL HISTORY: Pleural effusions. FINDINGS: 2 AP, portable, upright chest radiographs are compared to study dated 06/29/2013. The examin ation is degraded by portable technique and patient rotation. The heart is enlarged. Pulmonary vascu lar congestion has improved from previous. Small pleural effusions are noted. Foci of probable scarri ng are seen throughout both lungs with dependent atelectasis. Parenchymal scarring is noted in the ri ght upper lobe. No pneumothorax is seen. The skeletal structures are osteopenic. The bony thorax is g rossly intact. Surgical clips are seen in the upper abdomen. IMPRESSION: 1. Cardiomegaly. Pulmonary vascular congestion has improved from previous. 2. Small pleural effusions with dependent atelectasis. ACT 112: Negative or not required by law. Electronically signed by: Yao Schuler M.D. 07/02/2023 2:51 PM
--- NOTE | 2023-07-02 16:26 | CT Scan Report ---
CT OF THE ABDOMEN AND PELVIS WITHOUT CONTRAST CLINICAL HISTORY: To reeval findings on previous CT COMPARISON STUDY: CT of the abdomen and pelvis July 01, 2023. TECHNIQUE: Axial images of the abdomen and pelvis were obtained without IV contrast. Images were revi ewed in the axial, sagittal, and coronal planes. Automated exposure control was utilized for the olu dy. A dose lowering technique was utilized adhering to the principles of ALARA. FINDINGS: A small left pleural effusion has increased in size since prior exam. Subpleural left lower lobe opacity favors atelectasis. A 1.6 and a subpleural right lower lobe airspace opacity is similar to prior exam. There is mild interlobular septal thickening. There is anasarca with body wall edema. Evaluation of the abdomen and pelvis is suboptimal on this unenhanced exam. Hepatomegaly is again no sara. Unenhanced images of the spleen, adrenal glands and pancreas are unremarkable. There is no abnor mality within the left nephrectomy bed. There is no right hydronephrosis. Urothelial thickening withi n the right collecting system and right ureter is noted. A tubular hypodense focus within the right l ower quadrant likely reflects the ileal conduit status post cystectomy. This is dilated, unchanged si nce CT of July 01, 2023. A small amount of ascites within the abdomen and pelvis is present. No pneuma tosis, free air or portal venous gas is present. There is no lymphadenopathy. Moderate right colon wa ll thickening is noted. A small gas and fluid containing collection within the right pelvic sidewall on image 256 of 329 has slightly decreased in size since prior CT. There is a hypodense focus measuri ng 6.1 x 2.6 cm within the left pelvic sidewall. This is similar to prior CT. No additional fluid col lections are present. There is no evidence for a bowel obstruction. Small amount of layering hyperden se material within the gallbladder is present. The gallbladder is mildly distended. IMPRESSION: 1. Exam compromised given lack of IV contrast. 2. Moderate right colon wall thickening. This favors a nonspecific colitis. No evidence for a bowel o bstruction. 3. Status post left nephrectomy and cystectomy with ileal conduit. No right hydronephrosis. Right-shahrzad ed urothelial thickening. 4. No change in a 6.1 x 2.6 cm hypodensity along the left pelvic sidewall. This could reflect a fluid collection such as an abscess. However, postoperative change such as a seroma could appear similar. A neoplastic etiology cannot be completely excluded. 5. Decrease in size of a tiny gas and fluid containing right pelvic sidewall collection. 6. Small layering stones within the gallbladder. Interval development of mild gallbladder distention. If right upper quadrant pain, ultrasound is recommended. 7. Anasarca with body wall edema. Small amount of abdominal and pelvic ascites. 8. Slight increase in a small left pleural effusion. No change in minimal right basilar opacity which favors a small focus of pneumonia. ACT 112: Negative or not required by law. Electronically signed by: Mynor Combs M.D. 07/02/2023 4:24 PM
[2023-07-02] MEDS: SODIUM CHLORIDE 0.65% NA SOLN 45 ML (OCEAN) ONE (17:25)
[2023-07-02] MEDS: FLUCONAZOLE 200 MG/100 ML BAG IV ONE (17:25)
[2023-07-02] MEDS: NYSTATIN SUSP 500,000 U/5 ML UDC PO SCH (17:25)
[2023-07-02] MEDS: cefTRIAXone SODIUM 2,000 MG/50 ML BAG IV SCH (20:04)
[2023-07-03 07:14] LABS: Hematocrit (blood only) 23.8 % (37.0-47.0); Hemoglobin 7.7 g/dl (12.0-16.0); Mean Corpuscular Hemoglobin 25.5 pg (25.0-34.0); Mean Corpuscular Hgb Conc 32.4 g/dL (32.0-36.0); Mean Corpuscular Volume 78.8 fL (80.0-100.0); Mean Platelet Volume 11.2 fL (9.4-12.4); Platelet Count 115 K/uL (130-400); RDW Coefficient of Variation 18.8 % (11.5-14.5); RDW Standard Deviation 54.2 fL (36.4-46.3); Red Blood Count 3.02 M/uL (4.20-5.40); White Blood Count 0.98 K/ul (4.8-10.8)
[2023-07-03 07:19] LABS: Albumin Globulin Ratio 0.5 (0.9-2); Albumin Level 1.7 gm/dl (3.4-5.0); Bilirubin,Total 0.6 mg/dl (0.2-1.0); Creatinine Clr Calc Pharmacy 16.4 ml/min; Est GFR (African American) 20.6 ml/min; Est GFR (Non-African American) 17.8 ml/min; Globulin 3.5 gm/dl (2.5-4.0); Potassium 3.3 mmol/L (3.5-5.1); Total Protein 5.2 gm/dl (6.0-8.3)
[2023-07-03] MEDS: FLUCONAZOLE 100 MG/50 ML BAG IV SCH (08:46)
--- NOTE | 2023-07-03 09:41 | Gastrointestinal Consultation ---
Date of Consultation July 03, 2023 Assessment & Plan (1) Mouth pain: Plan Etiology of her oral symptoms is not clear and has been ongoing for about 2 weeks. Certainly she is very ill and admitted with severe sepsis, UTI, and possible abscess vs neoplastic process in pelvis. - patient is not interested in any endoscopic procedures to further evaluate her issues. - patient is not interested in any feeding tubes given poor intake. - continue with empiric treatment of possible yeast component with diflucan and nystatin. can continue with magic swizzle as recommended by speech. Supervising Physician Co-Signing Physician Notes Patient was transferred prior to my evaluation History of Present Illness Reason for Consultation: soreness in throat, inability to swallow Requesting Physician: Keiko Miller MD Attending Physician: Ismael Bradley MD History of Present Illness Patient is a 73 year old female with past medically significant for invasive high-grade urothelial carcinoma initial diagnosed 2020 involving the left ureter s/p left nephroureterectomy on February 01, 2021 and s/p BCG in 2021. In January 2023 diagnosed with high-grade invasive urothelial carcinoma with sarcomatoid features and focal squamous differentiation with lymphovascular invasion and muscularis propria. She was deemed not a candidate for neoadjuvant chemotherapy given significantly low ANC related to underlying lekuemia. She came to the ED on 06/30/23 with complaints of fevers, chills, confusion. She was recently admitted fat [place] due to issues with with septic shock and urose psis and CT scan showing right hydroureteronephrosis and also small right hemipelvis abscess. It is hard to obtain information from patient as she cannot speak but rather, she only shakes her head yes or no. She has had painful mouth and throat for about 2 weeks. Has difficulty with oral intake. Speech advised her to be NPO and use of magic swizzle. she has been started on empiric fluconazole and nystatin for possible yeast component but has only received one dose of these. she has not noticed any difference at this time. rest of GI ros unremarkable. CT 07/02/23 moderate right colon wall thickening favoring a nonspecific colitis. Left pelvis side wall collection concerning for possible abscess or neoplastic process. Allergies Allergy/AdvReac Type Severity Reaction Status Date / Time Penicillins Allergy Intermediate Airway Verified 07/01/23 00:29 edema, rash pollen extracts Allergy Unknown Unknown Verified 07/01/23 00:29 Home Medications Medication Instructions Recorded Confirmed Type loratadine 10 mg tablet (Claritin) 10 mg PO DAILY PRN allergies 11/15/17 07/01/23 History azelastine 137 mcg (0.1 %) nasal 1 spray intranasal BID PRN Nasal 03/15/21 07/01/23 History spray aerosol Congestion acetaminophen 325 mg tablet 650 mg PO Q4 PRN Pain 07/01/23 07/01/23 History (Tylenol) filgrastim-sndz 480 mcg/0.8 mL 480 mcg subcut [id number] 07/01/23 07/01/23 History injection syringe (Zarxio) food supplemt, lactose-reduced 1 ea PO DAILY 07/01/23 07/01/23 History midodrine 5 mg tablet 5 mg PO TID 07/01/23 07/01/23 History multivitamin 1 tab PO Q OTHER DAY 07/01/23 07/01/23 History Patient History Medical History Ureter ca left Carcinoma of bladder Neutropenia Surgical History H/O hysterectomy with unilateral oophorectomy History of urostomy History of left nephrectomy Social History Smoking Status: Never smoker Second Hand Exposure: No; Do You Dip or Chew Tobacco: No; Hx Alcohol Use: Yes Alcohol type: beer Hx Substance Use: No Preferred Language: Romanian Communication Ability: Impaired Home Energy Rater Required: No Beliefs That Will Affect Care: None Current Living Situation: Spouse Current Living Situation Comment: lives at home with Feels Safe at Home: Yes Assistive Devices: None Review of Systems Review of Systems: All systems reviewed & are unremarkable except as noted in HPI & below Physical Exam Constitutional: WD/WN, vitals as above ENMT: patient has difficulty opening mouth and cannot properly visualize. she deferred further exam of mouth. Respiratory: normal respiratory effort, lungs clear to auscultation Cardiovascular: RRR Gastrointestinal (Abdomen): normal bowel sounds, soft, nontender, no hepatosplenomegaly (urostomy present in RLQ) Psychiatric: Orientation: alert Results & Data Vital Signs (Past 12 Hours) Vital Signs Temp Pulse Pulse Resp BP Pulse Ox Pulse Ox 07/03/23 07:36 97.5 F L 100 H 24 149/78 H 99 07/03/23 03:33 97.5 F L 99 H 26 H 126/71 98 07/03/23 03:00 98 07/02/23 22:38 97.5 F L 93 H 22 125/74 99 07/02/23 22:17 92 H O2 Del Method O2 Del Method 07/03/23 07:36 Room Air 07/03/23 03:33 Room Air 07/03/23 03:00 Room Air 07/02/23 22:38 Room Air 07/02/23 22:17 Coding Level of Care Code 51998 INT INP/OBS CARE 2/55MIN Diagnoses Mouth pain K13.79
--- NOTE | 2023-07-03 10:17 | Nephrology Progress Note ---
Date of Service July 03, 2023 Assessment & Plan Admission and Anticipated Discharge Date Admission Date: July 01, 2023 Subjective Assessment & Plan (1) Acute renal failure (ARF): Currently has JUANITO on background CKD 4. She has only 1 kidney. left nephrectomy done 2020 and now had Cystectomy and also ileal conduit. Creat baseline 1.7 most recently and now is higher in the setting of Sepsis. Some volume depletion noted but likely has ATN also. At this point will stop Bicarb drip. but she is NPO so will give d5w at 75/hr ( has Hypernatremia) Has sig edema--sec to vol overload and also low albumin. CT abdomen reviewed and no Hydronephrosis noted. Avoid nephrotoxic Abx and agents like NSAIDs,contrast etc for now supportive care with good BP and O2 level. Creat this AM slightly worse than yesterday. making urine 1275 ml yesterday. So JUANITO is not rapidly worsening but may not really improve given her overall situation. reviewed GI note and possible esophageal Candidiasis. Also possible transger to [facility] [place] (2) Sepsis: In patient with very Low ANC and very succeptibel to infection. On Abx currently. C/s are pending. with her ileal Conduit always at risk for UTI and urosepsis. S--Feels very weak. Breathing is abnormal with grunting vs Stridor. too weak to even talk. making urine Physical Exam Physical Exam: General- Not in acute distress. Looks weak and frail. Pale Head- atraumatic ENT- oropharynx dry Neck- supple, no JVD. Lungs- clear to auscultation no wheezing or crackles Heart- regular rhythm;tachycardia , no murmur, no gallop. Abdomen- normal bowel sounds, soft, nontender, urostomy seen Extremities- 1+ edema present, no erythema seen. Neuro- alert, oriented x 2; PERRL, no facial palsy; no dysarthria;Obeys simple commands, moves extremities. Results & Data Vital Signs (Past 12 Hours) Vital Signs Temp Pulse Pulse Resp BP Pulse Ox Pulse Ox 07/03/23 07:36 36.4 C L 100 H 24 149/78 H 99 07/03/23 03:33 36.4 C L 99 H 26 H 126/71 98 07/03/23 03:00 98 07/02/23 22:38 36.4 C L 93 H 22 125/74 99 07/02/23 22:17 92 H O2 Del Method O2 Del Method 07/03/23 07:36 Room Air 07/03/23 03:33 Room Air 07/03/23 03:00 Room Air 07/02/23 22:38 Room Air 07/02/23 22:17
[2023-07-03] MEDS: POTASSIUM CHLORIDE / WTR 10 MEQ/100 ML PLCT IV SCH (10:28)
--- NOTE | 2023-07-03 11:07 | Hospitalist Progress Note ---
Date of Service July 03, 2023 Assessment & Plan (1) AMS (altered mental status): Plan: 73-year-old female with past medically significant for invasive high-grade urothelial carcinoma initial diagnosed 2020 involving the left ureter s/p left nephroureterectomy on February 01, 2021 and s/p BCG in 2021. CKD3 In January 2023 diagnosed with high-grade invasive urothelial carcinoma with sarcomatoid features and focal squamous differentiation with lymphovascular invasion and muscularis propria. 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 Was transferred to [facility]. Was requiring pressors. In [facility] seen by urology. 14 [place] red rubber catheter was intubated in the urostomy and 10 mL of cloudy urine obtained and sent for culture and separately ureteral stent was aspirated. Prior to aspiration the stent was not draining and after the aspiration stent started to drain spontaneously. It was thought that stent was not draining appropriately due to mucus and sediments. Cultures grew pansensitive E. coli and Enterococcus sensitive to ampicillin and Vanco. Patient received antibiotic Ancef Unasyn and Zosyn and was thought she tolerated penicillin okay. She was discharged on Augmentin. Was in [facility] from May 26, 2023 to May 30, 2023. As per since she came home, she again started having fevers when she was about to complete antibiotic course. And last 1 week she developed sore mouth. She is using Magic swizzle. As per the last 2 days she is not eating anything because of severe soreness in the mouth. And because of sore mouth and poor oral intake and ongoing fever and lately patient getting somewhat confused got worried about developing sepsis and brought to the ER today. Patient somewhat slow to respond. Talking in low voices. Somewhat difficult to understand. Can tell her name. Knows that she is in the hospital. Knows her date of . Could not tell current dates. As per generally she can tell current dates. Patient denies any headache. Denies any back pain. Denies chest pain. Denies shortness of breath. No runny nose. Has sore throat. No cough. No abdominal pain. She is having some loose stools. Ambulates without support. Feeling weak. Hemodynamics okay in the ER. Lactic acid okay. She was also diagnosed with COVID on June 13, 2023. Acute Metabolic encephalopathy Severe sepsis Acute kidney injury Complicated UTI E coli Bacteremia Solitary kidney Chronic neutropenia Possible Pelvic Mass/Abscess H/O Septic shock and urosepsis in May 2023 and was in [facility] requiring pressors. At that time ureteral stent was blocked which was cleared with aspiration by urology. --CT ABD:Moderate right colon wall thickening. This favors a nonspecific colitis. No evidence for a bowel obstruction. Status post left nephrectomy and cystectomy with ileal conduit. No right hydronephrosis. Right-sided urothelial thickening. No change in a 6.1 x 2.6 cm hypodensity along the left pelvic sidewall. This could reflect a fluid collection such as an abscess. However, postoperative change such as a seroma could appear similar. A neoplastic etiology cannot be completely excluded. Decrease in size of a tiny gas and fluid containing right pelvic sidewall collection. Small layering stones within the gallbladder. Interval development of mild gallbladder distention. If right upper quadrant pain, ultrasound is recommended. Anasarca with body wall edema. Small amount of abdominal and pelvic ascites. Slight increase in a small left pleural effusion. No change in minimal right basilar opacity which favors a small focus of pneumonia. -Was started on Vanco and cefepime on admission--discontinued -Blood cultures grew E. coli -Urine culture not contributory -Repeat blood cultures pending -Bicarb drip discontinued --Appreciate urology, nephrology input --ID eval pending --Cr:2.6 today --Sodium 146 today --Continue ceftriaxone daily --May need IR intervention, Urological procedure --Could not obtain CT with contrast due to JUANITO to help diff abscess Vs Mass Given complexity of patient's condition, [facility] Triage [facility]--who accepted the patient for further care Updated patient's family over the phone Hypernatremia Hypokalemia In setting of volume overload Poor oral intake On gentle IV fluids Appreciate nephrology input Replete electrolytes as needed Elevated troponin Likely demand ischemia in the setting of severe sepsis and JUANITO TTE today noted normal LV wall motion, EF 60-65, G1 DD Possible Oral Thrush continue Nystatin Diarrhea Had an episode of diarrhea in ER. Stool for C.diff negative Neutropenia Has chronic neutropenia since 2012 Currently on Neupogen shots 4 times a week Follows with heme-onc Follows with heme-onc Dr. Lizarraga Neutropenic precautions Anemia of chronic disease Hb 7.7 No obvious bleeding issues Invasive high-grade urothelial carcinoma initially diagnosed in 2020 involving the left ureter./p left nephroureterectomy on February 01, 2021 and s/p BCG in 2021. In January 2023 diagnosed with high-grade invasive urothelial carcinoma with sarcomatoid features and focal squamous differentiation with lymphovascular invasion and muscularis propria. 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 He recommends doing 480mcg daily He also recommends doing fluconazole empirical treatment for possible esophageal candidiasis until GI evaluates Also to get CMV testing until ID evaluates--pending Fluconazole renal dosing ordered DVT Px: Heparin SQ Code Status Full code [email or web address] and Anticipated Discharge Date Admission Date: July 01, 2023 Subjective Patient is seen and examined at bedside Poor historian and oriented to person only Admits to have soreness of mouth Renal function slowly worsening Discussed with nephrology Updated patient's family over the phone Also discussed with physician at [facility] for transfer Review of Systems Review of Systems: All systems reviewed & are unremarkable except as noted in Subjective Physical Exam Physical Exam: Physical Exam: Vitals signs as noted above General Appearance:Thin, frail, ill appearing, no apparent distress Head: normocephalic, Atraumatic Eyes: normal inspection, EOMI Neck: supple, Trachea midline Respiratory/Chest: Normal breath sounds, CTA, No accessory muscle use Cardiovascular: S1, S2, No murmur Abdomen/GI:Soft, Non tender, Bowel sounds present, +Ileal conduit Extremities/Musculoskeletal:normal inspection, 2+ Pedal edema Neurologic/Psych:AAOX1, grossly no focal neurological deficits Skin: normal color, warm Results & Data Results & Data Vital Signs (Past 12 Hours) Vital Signs Temp Pulse Pulse Resp BP Pulse Ox Pulse Ox 07/03/23 10:19 92 H 07/03/23 07:36 36.4 C L 100 H 24 149/78 H 99 07/03/23 03:33 36.4 C L 99 H 26 H 126/71 98 07/03/23 03:00 98 O2 Del Method O2 Del Method 07/03/23 10:19 07/03/23 07:36 Room Air 07/03/23 03:33 Room Air 07/03/23 03:00 Room Air Laboratory Results Short CBC 07/03/23 Range/Units 06:26 WBC 0.98 L* (4.8-10.8) K/ul Hgb 7.7 L (12.0-16.0) g/dl Hct 23.8 L (37.0-47.0) % Plt Count 115 L (130-400) K/uL BMP 07/03/23 06:26 Sodium 146 H Potassium 3.3 L Chloride 120 H Carbon Dioxide 17 L BUN 81 H Creatinine 2.61 H Glucose 95 Calcium 8.0 L Liver Function 07/03/23 Range/Units 06:26 Total Bilirubin 0.6 (0.2-1.0) mg/dl AST 5 L (13-39) U/L ALT 5 L (7-52) U/L Alkaline Phosphatase 41 (34-104) U/L Albumin 1.7 L (3.4-5.0) gm/dl
[2023-07-03] MEDS: FILGRASTIM 480 MCG/1.6 ML VIAL SQ SCH (11:36)
--- NOTE | 2023-07-03 15:06 | Discharge Summary ---
Date of Service July 03, 2023 Admission HPI Per Admitting Provider 73-year-old female with past medically significant for invasive high-grade urothelial carcinoma initial diagnosed 2020 involving the left ureter s/p left nephroureterectomy on February 01, 2021 and s/p BCG in 2021. In January 2023 diagnosed with high-grade invasive urothelial carcinoma with sarcomatoid features and focal squamous differentiation with lymphovascular invasion and muscularis propria. 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 Was transferred to [place]. Was requiring pressors. In [place] seen by urology. 14 Gabonese red rubber catheter was intubated in the urostomy and 10 mL of cloudy urine obtained and sent for culture and separately ureteral stent was aspirated. Prior to aspiration the stent was not draining and after the aspiration stent started to drain spontaneously. It was thought that stent was not draining appropriately due to mucus and sediments. Cultures grew pansensitive E. coli and Enterococcus sensitive to ampicillin and Vanco. Patient received antibiotic Ancef Unasyn and Zosyn and was thought she tolerated penicillin okay. She was discharged on Augmentin. She was in [place] from May 26, 2023 to May 30, 2023.. As per since she came home , she again started having fevers when she was about to complete antibiotic course. She is taking Tylenol regularly for fevers per .. And last 1 week she developed sore mouth. She is using Magic swizzle. As per the last 2 days she is not eating anything because of severe soreness in the mouth. And because of sore mouth and poor oral intake and ongoing fever and lately patient getting somewhat confused got worried about developing sepsis and brought to the ER today. Patient somewhat slow to respond. Talking in low voices. Somewhat difficult to understand. Can tell her name. Knows that she is in the hospital. Knows her date of . Could not tell current dates. As per generally she can tell current dates. Patient denies any headache. Denies any back pain. Denies chest pain. Denies shortness of breath. No runny nose. Has sore throat. No cough. No abdominal pain. She is having some loose stools. Ambulates without support. Feeling weak. Hemodynamics okay in the ER. Lactic acid okay. She was also diagnosed with COVID on June 13, 2023. Past medical history as mentioned above. Past surgical history. Cystoscopy. Dental surgery. Laparoscopic left nephrectomy total ureterectomy 02/01/2021. Laryngoscopy direct stripping of vocal cord. Radical abdominal hysterectomy May 08, 2023. Cystectomy complete with ureteroileal conduct with bilateral pelvic lymphadenectomy on May 08, 2023. Repair of inguinal hernia in 1999. Social history. . No smoking. 2 standard drinks of alcohol per week. No drug use. Family history. Mother had heart disorder. Hypertension. Father had liver cancer. Pancreatic cancer. Maternal grandmother had diabetes. Stroke. Maternal grandfather had a heart attack. Paternal grandfather had cancer. Paternal grandmother had stroke. Admission Exam Per Admitting Provider General- Not in acute distress Head- atraumatic Eyes- PERRL ENT- oropharynx dry Neck- supple, no JVD. Lungs- clear to auscultation no wheezing or crackles Heart- regular rhythm;tachycardia , no murmur, no gallop. Abdomen- normal bowel sounds, soft, nontender, urostomy seen Extremities- mild pretibial edema present, no erythema seen. Neuro- alert, oriented x 2; PERRL, no facial palsy; no dysarthria;Obeys simple commands, moves extremities. Skin- stage 1 decubitus ulcer Principal Diagnosis Invasive high-grade urothelial carcinoma Sepsis, Complicated UTI Hyponatremia Hypokalemia Suspected pelvic abscess Acute metabolic encephalopathy Acute kidney injury E. coli bacteremia Chronic neutropenia Suspected oral Thrush Discharge Data Allergies Allergy/AdvReac Type Severity Reaction Status Date / Time Penicillins Allergy Intermediate Airway Verified 07/01/23 00:29 edema, rash pollen extracts Allergy Unknown Unknown Verified 07/01/23 00:29 Consultations 06/30/23 23:49 ED Decision to Admit Stat 07/01/23 08:00 Consult Urology Routine 07/01/23 08:45 Consult Nephrology Routine 07/02/23 11:20 Consult Infectious Diseases Routine 07/02/23 14:53 Consult Gastroenterology Routine 07/03/23 12:17 Burn CD for patient Stat Procedures Performed Laboratory Results WBC 0.98 K/ul (4.8-10.8) L* 07/03/23 06:26 RBC 3.02 M/uL (4.20-5.40) L 07/03/23 06:26 Hgb 7.7 g/dl (12.0-16.0) L 07/03/23 06:26 Hct 23.8 % (37.0-47.0) L 07/03/23 06:26 MCV 78.8 fL (80.0-100.0) L 07/03/23 06:26 MCH 25.5 pg (25.0-34.0) 07/03/23 06:26 MCHC 32.4 g/dL (32.0-36.0) 07/03/23 06:26 RDW Std Deviation 54.2 fL (36.4-46.3) H 07/03/23 06:26 RDW Coeff of Nisha 18.8 % (11.5-14.5) H 07/03/23 06:26 Plt Count 115 K/uL (130-400) L 07/03/23 06:26 MPV 11.2 fL (9.4-12.4) 07/03/23 06:26 Immature Gran % (Auto) 0.0 % 07/01/23 05:52 Neut % (Auto) 10.1 % 07/01/23 05:52 Lymph % (Auto) 61.4 % 07/01/23 05:52 [place] % (Auto) 21.4 % 07/01/23 05:52 Eos % (Auto) 7.1 % 07/01/23 05:52 Baso % (Auto) 0.0 % 07/01/23 05:52 Neut # (Auto) 0.07 K/uL (1.40-6.50) L* 07/01/23 05:52 Lymph # (Auto) 0.43 K/uL (1.20-3.40) L 07/01/23 05:52 [place] # (Auto) 0.15 K/uL (0.11-0.59) 07/01/23 05:52 Eos # (Auto) 0.05 K/uL (0.00-0.50) 07/01/23 05:52 Baso # (Auto) 0.00 K/uL (0.00-0.20) 07/01/23 05:52 Immature Gran # (Auto) 0.00 K/uL (0.01-0.20) L 07/01/23 05:52 Neutrophils % (Manual) 7 % 06/30/23 22:55 Lymphocytes % (Manual) 73 % 06/30/23 22:55 Monocytes % (Manual) 10 % 06/30/23 22:55 Eosinophils % (Manual) 10 % 06/30/23 22:55 Neutrophils # (Manual) 0.04 K/uL (1.40-6.50) L 06/30/23 22:55 Total Absolute Neuts 0.04 K/uL (1.4-6.5) L* 06/30/23 22:55 Lymphocytes # (Manual) 0.42 K/uL (1.2-3.4) L 06/30/23 22:55 Total Abs Lymphocytes 0.42 K/uL (1.2-3.4) L 06/30/23 22:55 Monocytes # (Manual) 0.06 K/uL (0.11-0.59) L 06/30/23 22:55 Eosinophils # (Manual) 0.06 K/uL (0-0.50) 06/30/23 22:55 RBC Morphology Unremarkable 06/30/23 22:55 Sodium 146 mmol/L (136-145) H 07/03/23 06:26 Potassium 3.3 mmol/L (3.5-5.1) L 07/03/23 06:26 Chloride 120 mmol/L (98-107) H 07/03/23 06:26 Carbon Dioxide 17 mmol/L (21-32) L 07/03/23 06:26 Anion Gap 9 (3-11) 07/03/23 06:26 BUN 81 mg/dl (6-23) H 07/03/23 06:26 Creatinine 2.61 mg/dl (0.6-1.2) H 07/03/23 06:26 Est Cr Clr Drug Dosing 16.4 ml/min 07/03/23 06:26 Est GFR ( Amer) 20.6 ml/min 07/03/23 06:26 Est GFR (Non-Af Amer) 17.8 ml/min 07/03/23 06:26 BUN/Creatinine Ratio 31.0 (10-20) H 07/03/23 06:26 Glucose 95 mg/dl (70-99(Fasting)) 07/03/23 06:26 Lactate 0.9 mmol/L (0.4-2.0) 06/30/23 22:55 Calcium 8.0 mg/dl (8.6-10.3) L 07/03/23 06:26 Magnesium 1.9 mg/dl (1.7-2.4) 07/01/23 05:52 Total Bilirubin 0.6 mg/dl (0.2-1.0) 07/03/23 06:26 Direct Bilirubin 0.3 mg/dl (0-0.2) H 06/30/23 22:55 AST 5 U/L (13-39) L 07/03/23 06:26 ALT 5 U/L (7-52) L 07/03/23 06:26 Alkaline Phosphatase 41 U/L (34-104) 07/03/23 06:26 Troponin I High Sens 162.6 pg/ml (0-14) H* 07/01/23 16:52 Total Protein 5.2 gm/dl (6.0-8.3) L 07/03/23 06:26 Albumin 1.7 gm/dl (3.4-5.0) L 07/03/23 06:26 Globulin 3.5 gm/dl (2.5-4.0) 07/03/23 06:26 Albumin/Globulin Ratio 0.5 (0.9-2) L 07/03/23 06:26 Procalcitonin 19.30 ng/ml (0-0.5) H 06/30/23 22:55 Urine Color Yellow 06/30/23 23:27 Urine Appearance Turbid (Clear) A 06/30/23 23:27 Urine pH 6.0 (4.5-7.5) 06/30/23 23:27 Ur Specific [place] 1.013 (1.000-1.030) 06/30/23 23:27 Urine Protein 2+ (Negative) H 06/30/23 23:27 Urine Glucose (UA) Negative (Negative) 06/30/23 23: Urine Ketones Negative (Negative) 06/30/23 23: Urine Blood Negative (Negative) 06/30/23 23: Urine Nitrite Negative (Negative) 06/30/23 23: Urine Bilirubin Negative (Negative) 06/30/23 23: Urine Urobilinogen Negative (Negative) 06/30/23 23: Ur Leukocyte Esterase Negative (Negative) 06/30/23 23: Urine WBC (Auto) 6-10 /hpf (0-5) H 06/30/23 23: Urine RBC (Auto) 0-2 /hpf (0-2) 06/30/23 23: U Hyaline Cast (Auto) 6-10 /lpf (0-2) H 06/30/23 23: U Epithel Cells (Auto) 0-2 /hpf (0-2) 06/30/23 23: Urine Bacteria (Auto) 4+ (None Seen) H 06/30/23 23:27 Stl C. diff Tox B Gene Negative Cdiff Gene (Neg) 07/01/23 01:50 Random Vancomycin 13.2 mcg/ml (10-20) 07/02/23 07:31 Adenovirus (PCR) Not Detected (NotDetected) 06/30/23 23:00 B. pertussis DNA (PCR) Not Detected (NotDetected) 06/30/23 23:00 B.parapertussis DNA PCR Not Detected (NotDetected) 06/30/23 23:00 C. pneumoniae DNA (PCR) Not Detected (NotDetected) 06/30/23 23:00 Coronavirus OC43 (PCR) Not Detected (NotDetected) 06/30/23 23:00 Coronavirus HKU1 (PCR) Not Detected (NotDetected) 06/30/23 23:00 Coronavirus 229E (PCR) Not Detected (NotDetected) 06/30/23 23:00 SARS-CoV-2 (PCR) Not Detected (NotDetected) 06/30/23 23:00 Coronavirus NL63 (PCR) Not Detected (NotDetected) 06/30/23 23:00 Enterobacterales (PCR) DETECTED (NotDetected) A 06/30/23 22:55 E. coli (PCR) DETECTED (NotDetected) A 06/30/23 22:55 Human Metapneumovir PCR Not Detected (NotDetected) 06/30/23 23:00 Influenza Type A (PCR) Not Detected (NotDetected) 06/30/23 23:00 Influenza Type B (PCR) Not Detected (NotDetected) 06/30/23 23:00 M. pneumoniae (PCR) Not Detected (NotDetected) 06/30/23 23:00 Parainfluenza 1 (PCR) Not Detected (NotDetected) 06/30/23 23:00 Parainfluenza 2 (PCR) Not Detected (NotDetected) 06/30/23 23:00 Parainfluenza 3 (PCR) Not Detected (NotDetected) 06/30/23 23:00 Parainfluenza 4 (PCR) Not Detected (NotDetected) 06/30/23 23:00 RSV (PCR) Not Detected (NotDetected) 06/30/23 23:00 Entero/Rhino (PCR) Not Detected (NotDetected) 06/30/23 23:00 mcr-1 [place]in Res Gene PCR Not Detected (NotDetected) 06/30/23 22:55 Group A Strep (PCR) NOT DETECTED (NotDetected) 06/30/23 23:00 blaIMP Car res Gene PCR Not Detected (NotDetected) 06/30/23 22:55 KPC-Carbap Res Gene PCR Not Detected (NotDetected) 06/30/23 22:55 blaNDM Car Res Gene PCR Not Detected (NotDetected) 06/30/23 22:55 OXA-48 Carbapenem Resis Gene (PCR) Not Detected (NotDetected) 06/30/23 22:55 blaVIM Car Res Gene PCR Not Detected (NotDetected) 06/30/23 22:55 CTX-M Gene Resistance (PCR) Not Detected (NotDetected) 06/30/23 22:55 Bld Cult ID Panel PCR See PCR Comment (NotDetected) 06/30/23 22:[address] 06/30/23 22:47 Exam(s): CT HEAD Without Contrast EXAM: CT Head Without Intravenous Contrast CLINICAL HISTORY: Reason for exam: bladder CA, AMS, fever. TECHNIQUE: Axial computed tomography images of the head/brain without intravenous contrast. Automated exposure control was utilized for the study. A dose lowering technique was utilized adhering to the principles of ALARA. COMPARISON: No relevant prior studies available. FINDINGS: Brain: Unremarkable. No hemorrhage. No significant white matter disease. No edema. Ventricles: Unremarkable. No ventriculomegaly. Bones/joints: Unremarkable. No acute fracture. Soft tissues: Unremarkable. Sinuses: Findings concerning for acute maxillary sinusitis with air- fluid levels. Mastoid air cells: Unremarkable as visualized. No mastoid effusion. IMPRESSION: No evidence of acute intracranial pathology. Findings concerning acute maxillary sinusitis with air-fluid levels. Electronically signed by: Elisa Willis MD 07/01/23 00:00 AM Chest X-Ray 07/02/23 14:24 SINGLE VIEW CHEST CLINICAL HISTORY: Pleural effusions. FINDINGS: 2 AP, portable, upright chest radiographs are compared to study dated 06/29/2013. The examination is degraded by portable technique and patient rotation. The heart is enlarged. Pulmonary vascular congestion has improved from previous. Small pleural effusions are noted. Foci of probable scarring are seen throughout both lungs with dependent atelectasis. Parenchymal scarring is noted in the right upper lobe. No pneumothorax is seen. The skeletal structures are osteopenic. The bony thorax is grossly intact. Surgical clips are seen in the upper abdomen. IMPRESSION: 1. Cardiomegaly. Pulmonary vascular congestion has improved from previous. 2. Small pleural effusions with dependent atelectasis. ACT 112: Negative or not required by law. Electronically signed by: Yao Schuler M.D. 07/02/2023 2:51 PM Abdomen/Pelvis CT 07/02/23 14:52 CT OF THE ABDOMEN AND PELVIS WITHOUT CONTRAST CLINICAL HISTORY: To reeval findings on previous CT COMPARISON STUDY: CT of the abdomen and pelvis July 01, 2023. TECHNIQUE: Axial images of the abdomen and pelvis were obtained without IV contrast. Images were reviewed in the axial, sagittal, and coronal planes. Automated exposure control was utilized for the study. A dose lowering technique was utilized adhering to the principles of ALARA. FINDINGS: A small left pleural effusion has increased in size since prior exam. Subpleural left lower lobe opacity favors atelectasis. A 1.6 and a subpleural right lower lobe airspace opacity is similar to prior exam. There is mild interlobular septal thickening. There is anasarca with body wall edema. Evaluation of the abdomen and pelvis is suboptimal on this unenhanced exam. Hepatomegaly is again noted. Unenhanced images of the spleen, adrenal glands and pancreas are unremarkable. There is no abnormality within the left nephrectomy bed. There is no right hydronephrosis. Urothelial thickening within the right collecting system and right ureter is noted. A tubular hypodense focus within the right lower quadrant likely reflects the ileal conduit status post cystectomy. This is dilated, unchanged since CT of July 01, 2023. A small amount of ascites within the abdomen and pelvis is present. No pneumatosis, free air or portal venous gas is present. There is no lymphadenopathy. Moderate right colon wall thickening is noted. A small gas and fluid containing collection within the right pelvic sidewall on image 256 of 329 has slightly decreased in size since prior CT. There is a hypodense focus measuring 6.1 x 2.6 cm within the left pelvic sidewall. This is similar to prior CT. No additional fluid collections are present. There is no evidence for a bowel obstruction. Small amount of layering hyperdense material within the gallbladder is present. The gallbladder is mildly distended. IMPRESSION: 1. Exam compromised given lack of IV contrast. 2. Moderate right colon wall thickening. This favors a nonspecific colitis. No evidence for a bowel obstruction. 3. Status post left nephrectomy and cystectomy with ileal conduit. No right hydronephrosis. Right-sided urothelial thickening. 4. No change in a 6.1 x 2.6 cm hypodensity along the left pelvic sidewall. This could reflect a fluid collection such as an abscess. However, postoperative change such as a seroma could appear similar. A neoplastic etiology cannot be completely excluded. 5. Decrease in size of a tiny gas and fluid containing right pelvic sidewall co llection. 6. Small layering stones within the gallbladder. Interval development of mild gallbladder distention. If right upper quadrant pain, ultrasound is recommended. 7. Anasarca with body wall edema. Small amount of abdominal and pelvic ascites. 8. Slight increase in a small left pleural effusion. No change in minimal right basilar opacity which favors a small focus of pneumonia. ACT 112: Negative or not required by law. Electronically signed by: Mynor Combs M.D. 07/02/2023 4:24 PM Ordered Studies 06/30/23 22:47 CT head/brain wo con Stat 06/30/23 23:47 CT abd pelvis wo con Stat 07/02/23 14:52 CT Abdomen and Pelvis [CT abd pelvis wo con] Urgent Hospital Course (1) AMS (altered mental status): 73-year-old female with past medically significant for invasive high-grade urothelial carcinoma initial diagnosed 2020 involving the left ureter s/p left nephroureterectomy on February 01, 2021 and s/p BCG in 2021. CKD3 In January 2023 diagnosed with high-grade invasive urothelial carcinoma with sarcomatoid features and focal squamous differentiation with lymphovascular invasion and muscularis propria. 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 Was transferred to [place]. Was requiring pressors. In [place] seen by urology. 14 [place]e red rubber catheter was intubated in the urostomy and 10 mL of cloudy urine obtained and sent for culture and separately ureteral stent was aspirated. Prior to aspiration the stent was not draining and after the aspiration stent started to drain spontaneously. It was thought that stent was not draining appropriately due to mucus and sediments. Cultures grew pansensitive E. coli and Enterococcus sensitive to ampicillin and Vanco. Patient received antibiotic Ancef Unasyn and Zosyn and was thought she tolerated penicillin okay. She was discharged on Augmentin. Was in [place] from May 26, 2023 to May 30, 2023. As per since she came home, she again started having fevers when she was about to complete antibiotic course. And last 1 week she developed sore mouth. She is using Magic swizzle. As per the last 2 days she is not eating anything because of severe soreness in the mouth. And because of sore mouth and poor oral intake and ongoing fever and lately patient getting somewhat confused got worried about developing sepsis and brought to the ER today. Patient somewhat slow to respond. Talking in low voices. Somewhat difficult to understand. Can tell her name. Knows that she is in the hospital. Knows her date of . Could not tell current dates. As per generally she can tell current dates. Patient denies any headache. Denies any back pain. Denies chest pain. Denies shortness of breath. No runny nose. Has sore throat. No cough. No abdominal pain. She is having some loose stools. Ambulates without support. Feeling weak. Hemodynamics okay in the ER. Lactic acid okay. She was also diagnosed with COVID on June 13, 2023. Acute Metabolic encephalopathy Severe sepsis Acute kidney injury Complicated UTI E coli Bacteremia Solitary kidney Chronic neutropenia Possible Pelvic Mass/Abscess H/O Septic shock and urosepsis in May 2023 and was in [place] requiring pressors. At that time ureteral stent was blocked which was cleared with aspiration by urology. --CT ABD:Moderate right colon wall thickening. This favors a nonspecific colitis. No evidence for a bowel obstruction. Status post left nephrectomy and cystectomy with ileal conduit. No right hydronephrosis. Right-sided urothelial thickening. No change in a 6.1 x 2.6 cm hypodensity along the left pelvic sidewall. This could reflect a fluid collection such as an abscess. However, postoperative change such as a seroma could appear similar. A neoplastic etiology cannot be completely excluded. Decrease in size of a tiny gas and fluid containing right pelvic sidewall collection. Small layering stones within the gallbladder. Interval development of mild gallbladder distention. If right upper quadrant pain, ultrasound is recommended. Anasarca with body wall edema. Small amount of abdominal and pelvic ascites. Slight increase in a small left pleural effusion. No change in minimal right basilar opacity which favors a small focus of pneumonia. -Was started on Vanco and cefepime on admission--discontinued -Blood cultures grew E. coli -Urine culture not contributory -Repeat blood cultures pending -Bicarb drip discontinued --Appreciate urology, nephrology input --ID eval pending --Cr:2.6 today --Sodium 146 today --Continue ceftriaxone daily --May need IR intervention, Urological procedure --Could not obtain CT with contrast due to JUANITO to help diff abscess Vs Mass Given complexity of patient's condition, discussed with Veronica Girard Triage officer--who accepted the patient for further care Updated patient's family over the phone Hypernatremia Hypokalemia In setting of volume overload Poor oral intake On gentle IV fluids Appreciate nephrology input Replete electrolytes as needed Elevated troponin Likely demand ischemia in the setting of severe sepsis and JUANITO TTE today noted normal LV wall motion, EF 60-65, G1 DD Possible Oral Thrush continue Nystatin Diarrhea Had an episode of diarrhea in ER. Stool for C.diff negative Neutropenia Has chronic neutropenia since 2012 Currently on Neupogen shots 4 times a week Follows with heme-onc Follows with heme-onc Dr. Lizarraga Neutropenic precautions Anemia of chronic disease Hb 7.7 No obvious bleeding issues Invasive high-grade urothelial carcinoma initially diagnosed in 2020 involving the left ureter./p left nephroureterectomy on February 01, 2021 and s/p BCG in 2021. In January 2023 diagnosed with high-grade invasive urothelial carcinoma with sarcomatoid features and focal squamous differentiation with lymphovascular invasion and muscularis propria. 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 He recommends doing 480mcg daily He also recommends doing fluconazole empirical treatment for possible esophageal candidiasis until GI evaluates Also to get CMV testing until ID evaluates--pending Fluconazole renal dosing ordered DVT Px: Heparin SQ Code Status Full code Disposition Era Martin Total Time Total Time Spent Total Time Spent (In Minutes): 67 minutes Discharge Plan Discharge Items Patient Disposition: Transfer Acute Care Hospital Reason For Visit: AMS, UTI, JUANITO Discharge Diagnosis: Invasive high-grade urothelial carcinoma Sepsis, Complicated UTI Hyponatremia Hypokalemia Suspected pelvic abscess Acute metabolic encephalopathy Acute kidney injury E. coli bacteremia Chronic neutropenia Suspected oral Thrush Condition on Discharge: Fair Activity: Per Instructions section Exercise/Sports: Wait until after follow-up appointment Non-emergency contact: Primary Care Provider and Urologist Call non-emergency contact if: you have any medication questions, your symptoms worsen, your pain is concerning for you and you have a fever Follow-up/Referrals: Nichole Lizarraga MD [Primary Care Provider] - Dietitian Info: Currently NPO Diet: Other - See Diet Comment Addtl Attending Provider Instructions: Follow-up with Dr.Yanni Kenyon at [facility] for further management. Seek immediate medical attention if your symptoms reoccur or worsen Please take all medications as instructed on discharge list below. Please call if you have any questions or problems. You can reach a [facility] hospitalist on duty at 24 hours a day by calling [phone] Charlene Legal Researcher Provider Instructions: Date of Service: July 03, 2023 Current Inpatient Medications Acetaminophen (Acetaminophen 325 Mg Tab) 650 mg PO Q4H PRN PRN Reason: Pain or Fever Stop: 07/31/23 03:31 Azelastine HCl (Azelastine Hcl 0.1% Nasal 200 Sprays/27,400 Mcg Btl) 1 sprays NA BID PRN PRN Reason: Nasal Congestion Stop: 07/31/23 03:31 Filgrastim (Filgrastim 480 Mcg/1.6 Ml Vial) 480 mcg SQ DAILY ASIF Stop: 08/02/23 08:59 Heparin Sodium (Porcine) (Heparin Sod 5,000 Unit/0.5 Ml Vial) 5,000 units SQ Q12 ASIF Stop: 07/31/23 08:59 Last Admin: 07/03/23 08:46 Dose: 5,000 units Acetaminophen (Ofirmev) 1,000 mg in 100 mls @ 400 mls/hr IV Q8H PRN PRN Reason: Pain or Fever Stop: 07/04/23 12:57 Last Infusion: 07/03/23 04:21 Dose: Infused Dextrose (D5w) 1,000 mls @ 50 mls/hr IV .Q20H ASIF Stop: 08/01/23 11:29 Last Admin: 07/03/23 04:08 Dose: 50 mls/hr Ceftriaxone Sodium (Rocephin) 2,000 mg in 50 mls @ 100 mls/hr IV Q24H ASIF Stop: 07/16/23 20:59 Last Infusion: 07/02/23 20:34 Dose: Infused Fluconazole (Diflucan) 100 mg in 50 mls @ 100 mls/hr IV DAILY ASIF Stop: 08/02/23 08:59 Last Infusion: 07/03/23 09:55 Dose: Infused Loratadine (Loratadine 10 Mg Tab) 10 mg PO DAILY PRN PRN Reason: allergies Stop: 07/31/23 03:31 Midodrine (Midodrine Hcl 2.5 Mg Tab) 5 mg PO TID@0800,1200,1600 [facility] Stop: 07/31/23 07:59 Last Admin: 07/01/23 16:15 Dose: Not Given Multi-Ingredient Mouthwash/Gargle (First - Mouthwash Blm 119 Ml) 5 ml PO TID [facility] Stop: 07/31/23 08:59 Last Admin: 07/03/23 08:46 Dose: 5 ml Multivitamins (Multivitamin Tab) 1 tab PO Q48H [facility] Stop: 07/31/23 08:59 Last Admin: 07/01/23 09:08 Dose: Not Given Nitroglycerin (Nitroglycerin Sl 0.4 Mg/Tab Tab) 0.4 mg SL Q5M PRN PRN Reason: Chest Pain Stop: 07/31/23 03:31 Nystatin (Nystatin Susp 500,000 U/5 Ml Udc) 5 ml PO QID [facility] Stop: 08/01/23 16:59 Last Admin: 07/03/23 08:46 Dose: 5 ml Pending Studies at Discharge: Yes Studies:: Blood Cultures Stand-Alone Forms: [facility] Skilled Items Patient informed of condition?: Yes DNR: No Discharge Level of Care: Other Communicable Disease: No Discharge Prognosis: Stable Lines: Peripheral IV Urinary Catheter: No Medications and DC Order Prescriptions: Continued loratadine [Claritin] 10 mg Tablet 10 mg PO DAILY PRN (Reason: allergies) azelastine 137 mcg (0.1 %) Aerosol,[place] 1 spray INTRANASAL BID PRN (Reason: Nasal Congestion) multivitamin Tablet 1 tab PO Q OTHER DAY midodrine 5 mg tablet 5 mg PO TID Zarxio 480 mcg/0.8 mL syringe 480 mcg subcut [id number] Rx Instructions: Take on mon, tue, th, fri food supplemt, lactose-reduced Liquid 1 ea PO DAILY acetaminophen [Tylenol] 325 mg Tablet 650 mg PO Q4 PRN (Reason: Pain) Discharge Orders: Discharge Order (Routine); Ordered 07/03/23 Ordered By: Ismael Bradley Admission Data Admit Date/Time: 07/01/23 02:06 Attending Provider: Ismael Bradley Admit Provider: Derrick Donohue Primary Care Provider: Nichole Lizarraga Other Providers: Derrick Donohue; Joseph Leal; Deshaun Alexandre; Nikhil Contreras; Camelia Hung; Marcel Hassan; Waleska Bentley; Deyanira Roldan; Lino Jerome; Ofe Garcia; Leonidas Atkins; Lyndsay Portillo; Selvin Amaya; Demetrius Sherman; [facility]; Michael Leon; Boy Cardenas; Fritz Elliott I.; Lico Ham II; Blanca Russell; Jose Maria Lee; Kingston Villegas; Joan Gutiérrez; Calixto Edouard; Omid Beasley Other Interventions: Discharge Summary Assessment (RN) Last Done: 07/03/23 13:54
[2023-07-05 14:07] LABS: CMV IgG Antibody <0.60 U/mL; CMV IgM Antibody <30.00 AU/mL
== END 2023-07-03 13:54 | disposition short-term general hospital (02) | DRG 871 ==
LOC: ED 22:34 → SUATTDRO 07-01 02:06 → 2S 07-01 02:06